=== PATIENT | female | born 1945 | race American Indian/Alaskan Native ===

== ENCOUNTER 2017-02-09 14:32 | Inpatient (IN) | payer MEDICARE, OTHER ==
[2017-02-09 14:33] VITALS: BMI 23.0
[2017-02-09] MEDS ORDERED: Oxycodone/Acetaminophen 5/325 mg Tab PO STA ×2 (15:12→17:01)
[2017-02-09] MEDS ORDERED: Oxycodone/Acetaminophen 5/325 mg Tab ONE ×2 (15:42→16:11)
[2017-02-09 16:09] LABS: BASO # 0.1 K/uL (0.0-0.2); BASO % 0.7 % (0.0-2.0); EOS # 0.1 K/uL (0.0-0.7); EOS % 0.9 % (0.0-4.0); HEMATOCRIT 36.1 % (34.0-47.0); LYMPH # 1.9 K/uL (1.0-4.3); LYMPH % 18.5 % (20.0-40.0); MEAN CORPUSCULAR HEMOGLOBIN 29.5 pg (27.0-31.0); MEAN CORPUSCULAR HGB CONC 32.7 g/dL (33.0-37.0); MEAN PLATELET VOLUME 8.9 fL (7.2-11.7); MONO # 0.9 K/uL (0.0-0.8); MONO % 8.9 % (0.0-10.0); RED CELL DISTRIBUTION WIDTH 16.7 % (11.5-14.5); WHITE BLOOD COUNT 10.5 K/uL (4.8-10.8)
[2017-02-09 16:10] LABS: MEAN CELL VOLUME 90.1 fL (81.0-99.0)
[2017-02-09] MEDS ORDERED: Sodium Chloride 0.9% 1,000 ML ONE (16:11)
[2017-02-09 16:12] LABS: CHLORIDE 97 mmol/L (98-107); SODIUM 141 mmol/L (132-148)
[2017-02-09 16:15] LABS: ALB/GLOB RATIO 1.3 (1.0-2.1); ALKALINE PHOSPHATASE 80 U/L (38-126); ALT/SGPT 20 U/L (9-52); AST/SGOT 24 U/L (14-36); BILIRUBIN,TOTAL 0.3 mg/dL (0.2-1.3); BLOOD UREA NITROGEN 7 mg/dL (7-17); CARBON DIOXIDE 26 mmol/L (22-30); GFR AFRICAN-AMERICAN > 60; GLUCOSE,RANDOM 130 mg/dL (65-105); TOTAL PROTEIN 8.2 g/dL (6.3-8.3)
[2017-02-09] MEDS: Sodium Chloride 0.9% 1,000 ML IV ONE ×2 (16:16→20:41)
--- NOTE | 2017-02-09 16:29 | C.PDOC ---
History Of Present Illness 72-year-old female, PMHx includes Anxiety, Asthma, Bronchitis, COPD, Diabetes, Hypertension, Hypercholesterolemia, and Osteoporosis, presents to the emergency department with complaints of left foot pain x2 weeks. Patient states she has a Hx of peripheral vascular disease, and notes she is pending a femoral bypass surgery by Dr Rankin, and was instructed to come to the ED for evaluation. Denies any trauma. No other complaints at this time. Time Seen by Provider: 02/09/17 14:52 Chief Complaint (Nursing): Lower Extremity Problem/Injury History Per: Patient History/Exam Limitations: no limitations Onset/Duration Of Symptoms: Days Current Symptoms Are (Timing): Still Present Severity: Moderate Past Medical History Reviewed: Historical Data, Nursing Documentation, Vital Signs Vital Signs: Last Vital Signs Temp 98.8 F 02/09/17 17:59 Pulse 86 02/09/17 17:59 Resp 18 02/09/17 17:59 BP 148/62 02/09/17 17:59 Pulse Ox 96 02/09/17 17:59 - Medical History PMH: Anxiety, Arthritis (HANDS), Asthma, Bronchitis, COPD, Diabetes, Fractures ( RT.FOOT/CASTED NO OR), HTN, Hypercholesterolemia, Osteoporosis, Pneumonia Denies: Chronic Kidney Disease Surgical History: Endoscopy - [facility] Procedures CLOSED ENDOSCOPIC BIOPSY OF LARGE INTESTINE (07/31/15) ENDOSCOPIC CONTROL OF GASTRIC OR DUODENAL BLEEDING (07/24/15) ESOPHAGOGASTRODUODENOSCOPY [EGD] W/CLOSED BIOPSY (04/22/13) Family History: States: Unknown Family Hx - Social History Hx Tobacco Use: Yes (Former.) Hx Alcohol Use: No Hx Substance Use: No - Immunization History Hx Tetanus Toxoid Vaccination: No Hx Influenza Vaccination: Yes Hx Pneumococcal Vaccination: No Review Of Systems Except As Marked, All Systems Reviewed And Found Negative. Constitutional: Negative for: Fever, Chills Respiratory: Negative for: Shortness of Breath Gastrointestinal: Negative for: Nausea, Vomiting Musculoskeletal: Positive for: Foot Pain Skin: Negative for: Rash Neurological: Negative for: Weakness, Numbness, Headache, Dizziness Physical Exam - Physical Exam Appears: Non-toxic, No Acute Distress Skin: Warm, Dry, No Rash Head: Atraumatic, Normacephalic Eye(s): bilateral: Normal Inspection, EOMI Nose: Normal Oral Mucosa: Moist Lips: Normal Appearing Neck: Normal ROM Chest: Symmetrical Cardiovascular: Rhythm Regular Respiratory: Normal Breath Sounds, No Accessory Muscle Use Extremity: No Pedal Edema, No Calf Tenderness, Other (LEFT LOWER EXTREMITY. 3RD , 4TH AND 5TH DIGIT, GANGRENOUS AND PAINFUL. ) Neurological/Psych: Oriented x3, Normal Speech ED Course And Treatment - Laboratory Results Result Diagrams: 02/09/17 16:02 02/09/17 16:02 O2 Sat by Pulse Oximetry: 98 Progress Note: Case discussed w/ Dr Ledesma, who agrees w/ admission to his service. Disposition - Disposition Disposition: HOSPITALIZED Disposition Time: 14:00 Condition: STABLE - Clinical Impression Clinical Impression: Peripheral vascular disease, Gangrene of toe - Scribe Statement The provider has reviewed the documentation as recorded by the Pepe Khalil All medical record entries made by the Yareliibjoce were at my direction and personally dictated by me. I have reviewed the chart and agree that the record accurately reflects my personal performance of the history, physical exam, medical decision making, and the department course for this patient. I have also personally directed, reviewed, and agree with the discharge instructions and disposition.
[2017-02-09 17:28] LABS: RBC URINE 1 /hpf (0-3); URINE BILIRUBIN NEGATIVE (NEGATIVE); URINE BLOOD NEGATIVE (NEGATIVE); URINE COLOR Yellow (YELLOW); URINE GLUCOSE (UA) NORMAL (Normal); URINE KETONE NEGATIVE (NEGATIVE); URINE LEUKOCYTE ESTERASE NEG Leu/uL (Negative); URINE PROTEIN 2+ mg/dL (NEGATIVE); URINE UROBILINOGEN NORMAL mg/dL (0.2-1.0); WBC URINE < 1 /hpf (0-5)
--- NOTE | 2017-02-09 21:58 | HP ---
HISTORY OF PRESENT ILLNESS: This is a 72-year-old -[place] female with history of multiple m edical problems including type 2 diabetes mellitus, hypertension, smoker for more than 30 years, pres ented for pain in both lower extremities, right more than left, with change of the colors of the toes of the right foot. The patient was evaluated in the Emergency Room and admitted for further managem ent. The patient has been suffering of intermittent claudication pain for the last few months and sh joce was being given antiplatelet therapy as well as she had a vascular surgery consultation done by Dr. Rankin. REVIEW OF SYSTEMS: Other review of systems is negative. ALLERGIES: SULFA, PENICILLIN, TOMATO. SOCIAL HISTORY: Smoker more than 30 years. No ETOH or substance abuse. FAMILY HISTORY: Noncontributory. PAST MEDICAL HISTORY: Hypertension, type 2 diabetes mellitus, peripheral vascular disease. MEDICATIONS: Simvastatin 20 mg at bedtime, Tradjenta 5 mg daily, glipizide 10 mg twice a day, Plavix 75 mg daily, Pletal 50 mg twice a day, bisoprolol/hydrochlorothiazide 5/6.25 one tablet daily, aspir in 81 mg, amlodipine 5 mg, alprazolam 0.25 mg daily p.r.n., Fosamax 1 tablet every week, metformin 50 0 mg twice a day. PHYSICAL EXAMINATION: GENERAL: The patient is in bed, comfortable, not in any cardiopulmonary distress at the time of this examination. VITAL SIGNS: Blood pressure is 148/62, temperature 98.8, respiratory rate 18, and pulse of 86. HEENT: Pupils equal, reactive to light. Normal-appearing mucosa of the conjunctivae, oropharyngeal and nasal membrane mucosa. NECK: Supple, no JVD, no carotid bruit, no lymph node, no thyromegaly. CHEST AND LUNGS: Bilateral symmetrical expansion, good air exchange, no rales, no rhonchi. CARDIOVASCULAR: PMI not localized. S1, S2. No additional sounds. ABDOMEN: Normoactive bowel sounds, no tenderness, no organomegaly, no masses. EXTREMITIES: There is bluish discoloration of the toes of the right foot with diminished pulses in b oth lower extremities. CENTRAL NERVOUS SYSTEM: Alert, awake, oriented x 3. The patient moves all extremities equally. ASSESSMENT: 1. Peripheral vascular disease with some ischemia of the right foot. 2. Hypertension. 3. Type 2 diabetes mellitus. PLAN: Vascular surgery consultation and follow recommendations. Resume the patient's home medicatio ns, including Accu-Cheks with insulin coverage and antiplatelet. Cortney Lalit Ledesma MD cc: [phone] TT: 02/09/2017 21:57:48 jn
[2017-02-09] MEDS ORDERED: Oxycodone/Acetaminophen 5/325 mg Tab PO PRN (22:48)
[2017-02-09] MEDS ORDERED: (Novolin R) Insulin Human Regular 100 units/ml vial IV ONE (23:05)
--- NOTE | 2017-02-10 01:20 | CP.PCM.CON ---
History of Present Illness - History of Present Illness History of Present Illness: Vascular Surgery Re: LE pain HPI: 72F Presented to ED as directed by Dr Rankin. C/O LLE pain and discoloration of her RLE and B/L LE claudication when ambulating. States she cannot walk very far without severe pain. Worst pain currently is across her R toes. Says this has been happening for ~3 weeks. No other C/O at this time. During an angio on 12/31/16, Dr. Rankin found severe iliac and SFA disease. Patent stents on left. He was unable to re-enter at aortic bifurcation. He recommended letting the angio site heal and return for fem fem bypass. PMH: DM, HTN, PVD PSH: Colectomy, Hysterectomy, breast mass SH: Former smoker quit 3 weeks ago, no EtOH, No drug use All: PCN, Sulfa Meds: See MAR, on ASA and plavix. Review of Systems - Review of Systems All systems: reviewed and no additional remarkable complaints except (as per HPI ) Past Patient History - Infectious Disease Hx of Infectious Diseases: None - Past Medical History & Family History Past Medical History?: Yes - Past Social History Smoking Status: Light Smoker < 10 Cigarettes Daily - CARDIAC Hx Hypercholesterolemia: Yes Hx Hypertension: Yes - PULMONARY Hx Asthma: Yes Hx Bronchitis: Yes Hx Chronic Obstructive Pulmonary Disease (COPD): Yes Hx Pneumonia: Yes - NEUROLOGICAL Hx Neurological Disorder: No - HEENT Hx HEENT Problems: No - RENAL Hx Chronic Kidney Disease: No - ENDOCRINE/METABOLIC Hx Endocrine Disorders: Yes Hx Diabetes Mellitus Type 2: Yes - HEMATOLOGICAL/ONCOLOGICAL Hx Blood Disorders: No - INTEGUMENTARY Hx Dermatological Problems: No - MUSCULOSKELETAL/RHEUMATOLOGICAL Hx Arthritis: Yes (HANDS) Hx Fractures: Yes (RT.FOOT/CASTED NO OR) Hx Osteoporosis: Yes - GASTROINTESTINAL Hx Gastrointestinal Disorders: Yes Hx Bowel Surgery: Yes (COLON RESECTION FOR OBSTRUCTION?) Hx Gastroesophageal Reflux: Yes Other/Comment: HX.OBSTRUCTION HAD BOWEL RESECTION - GENITOURINARY/GYNECOLOGICAL Hx Genitourinary Disorders: No - PSYCHIATRIC Hx Anxiety: Yes Hx Substance Use: No - SURGICAL HISTORY Hx Surgeries: Yes Hx Angiogram: Yes (Stenting left leg) Hx Breast Biopsy: Yes (RT.) Hx Herniorrhaphy: Yes (UMBILICAL) Hx Hysterectomy: Yes (RYANN) Hx Orthopedic Surgery: Yes (OMAR. BUNIONECTOMY) Hx Tubal Ligation: Yes - ANESTHESIA Hx Anesthesia: Yes Hx Anesthesia Reactions: No Hx Malignant Hyperthermia: No Meds Allergies/Adverse Reactions: Allergies Allergy/AdvReac Type Severity Reaction Status Date / Time Penicillins Allergy SWELLING Verified 02/09/17 14:50 Sulfa (Sulfonamide Allergy RASH Verified 02/09/17 14:50 Antibiotics) tomato AdvReac GI UPSET Verified 02/09/17 14:50 - Medications Medications: Current Medications Alprazolam (Xanax) 0.25 mg PO DAILY PRN PRN Reason: Anxiety Stop: 02/16/17 22:49 Amlodipine Besylate (Norvasc) 5 mg PO DAILY [facility] Aspirin (Ecotrin) 81 mg PO DAILY [facility] Bisoprolol Fumarate/HCTZ (Ziac 5-6.25 Mg) 1 tab PO DAILY [facility] Cilostazol (Pletal) 50 mg PO BID [facility] Clopidogrel Bisulfate (Plavix) 75 mg PO DAILY [facility] Glipizide (Glucotrol) 10 mg PO BID [facility] Home Med (Alendronate [Fosamax]) 1 tab PO QWK [facility] Home Med (Linagliptin [Tradjenta]) 5 mg PO DAILY [facility] Sodium Chloride (Sodium Chloride 0.9%) 1,000 mls @ 100 mls/hr IV .Q10H ONE Stop: 02/10/17 01:24 Last Admin: 02/09/17 20:41 Dose: 100 mls/hr Insulin Human Regular (Novolin R) 0 unit IV ONCE ONE PRN Reason: Protocol Stop: 02/09/17 23:06 Metformin HCl (Glucophage) 500 mg PO BID [facility] Oxycodone/Acetaminophen (Percocet 5/325 Mg Tab) 1 tab PO QID PRN PRN Reason: Pain Stop: 02/12/17 22:49 Last Admin: 02/10/17 00:48 Dose: 1 tab Pneumococcal Polyvalent Vaccine (Pneumovax 23 Vaccine) 0.5 ml IM .ONCE ONE Stop: 02/11/17 10:01 Rosuvastatin Calcium (Crestor) 5 mg PO HS [facility] Physical Exam - Constitutional Appears: Non-toxic, No Acute Distress - Head Exam Head Exam: ATRAUMATIC, NORMOCEPHALIC - Eye Exam Eye Exam: EOMI. absent: Scleral icterus - ENT Exam ENT Exam: Mucous Membranes Moist Additional comments: trachea midline - Respiratory Exam Respiratory Exam: NORMAL BREATHING PATTERN. absent: Respiratory Distress - GI/Abdominal Exam GI & Abdominal Exam: Soft. absent: Distended, Guarding, Tenderness Additional comments: old surgical scars - Rectal Exam Rectal Exam: Deferred - Extremities Exam Extremities exam: Positive for: pedal edema (trace on R dorsum). Negative for: calf tenderness Additional comments: palpable femoral b/l, unable to palpate the popliteals, dopplerable PT/DPs with difficulty Some discoloration of dorsum of R foot and 3rd and 4th toes - Back Exam Back exam: absent: CVA tenderness (L), CVA tenderness (R) - Neurological Exam Neurological exam: Alert, Oriented x3 - Psychiatric Exam Psychiatric exam: Normal Affect, Normal Mood - Skin Skin Exam: Dry, Warm Results - Vital Signs Recent Vital Signs: Last Vital Signs Temp 98.2 F 02/09/17 23:57 Pulse 66 02/09/17 23:57 Resp 20 02/09/17 23:57 BP 144/67 02/09/17 23:57 Pulse Ox 95 02/09/17 23:57 - Labs Result Diagrams: 02/09/17 16:02 02/09/17 16:02 Labs: Laboratory Results - last 24 hr 02/09/17 02/09/17 02/09/17 17:15 17:20 22:04 POC Glucose (mg/dL) 137 H Urine Color Yellow Urine Clarity Clear Urine pH 8.0 Ur Specific [place] 1.006 Urine Protein 2+ H Urine Glucose (UA) Normal Urine Ketones Negative Urine Blood Negative Urine Nitrate Negative Urine Bilirubin Negative Urine Urobilinogen Normal Ur Leukocyte Esterase Neg Urine WBC (Auto) < 1 Urine RBC (Auto) 1 Ur Squamous Epith Cells 1 Blood Type O POSITIVE Antibody Screen Negative Assessment & Plan - Assessment and Plan (Free Text) Assessment: 72F with occlusive LE arterial disease Plan: Planning for fem-fem bypass on Thursday per Dr. Rankin Medical Management Adjusted analgesia PGY3
[2017-02-10] MEDS: Bisoprolol-HCTZ 5-6.25 mg Tab PO SCH (10:21)
[2017-02-10] MEDS: Cilostazol 50 mg Tab UD PO SCH ×2 (10:36→17:07)
[2017-02-10] MEDS: Oxycodone/Acetaminophen 5/325 mg Tab PO PRN ×2 (10:38→21:18)
--- NOTE | 2017-02-10 11:44 | CARD ---
APPROVED REPORT EKG Measurement Heart [id number] <Conclusion> Normal sinus rhythm Low voltage QRS Borderline ECG
[2017-02-10] MEDS: (Novolin R) Insulin Human Regular 100 units/ml vial SC SCH ×3 (17:06→21:20)
--- NOTE | 2017-02-10 21:55 | PN ---
DATE: 02/10/2017 The patient is seen today, 02/10/2017. The pain on the left foot is controlled. The patient was see n by vascular surgery, and decision was to do a bypass surgery. Blood pressure is 147/64, temperature 98.2, respiratory rate 20, and pulse 67. HEENT: Pupils equal, reactive to light. Normal-appearing mucosa of the conjunctivae, oropharyngeal, and nasal membrane mucosa. NECK: Supple, no JVD, no carotid bruit, no lymph node, no thyromegaly. CHEST AND LUNGS: Bilateral symmetrical expansion. Good air exchange. No rales, no rhonchi. CARDIOVASCULAR SYSTEM: PMI not localized. S1, S2. No additional sounds. ABDOMEN: Normoactive bowel sounds, no tenderness, no organomegaly, no masses. EXTREMITIES: No cyanosis, no clubbing, no edema. CENTRAL NERVOUS SYSTEM: Alert, awake, oriented x 2. No neurological deficits could be appreciated. ASSESSMENT: Severe peripheral vascular disease of both lower extremities with some ischemic changes in the right foot. PLAN: Continue current medications and management, and after the patient will be cleared by cardiolo gy she will undergo vascular bypass surgery for revascularization of right lower extremity. Kd Ledesma MD cc: [phone] TT: 02/10/2017 21:54:33 Confirmation # [id number] Dictation # [id number]
[2017-02-11] MEDS: Oxycodone/Acetaminophen 5/325 mg Tab PO PRN ×2 (04:58→22:28)
[2017-02-11 07:34] LABS: BASO # 0.1 K/uL (0.0-0.2); BASO % 0.6 % (0.0-2.0); EOS # 0.2 K/uL (0.0-0.7); EOS % 2.4 % (0.0-4.0); HEMATOCRIT 34.4 % (34.0-47.0); LYMPH # 1.7 K/uL (1.0-4.3); LYMPH % 18.6 % (20.0-40.0); MEAN CELL VOLUME 90.2 fL (81.0-99.0); MEAN CORPUSCULAR HEMOGLOBIN 29.7 pg (27.0-31.0); MEAN CORPUSCULAR HGB CONC 32.9 g/dL (33.0-37.0); MEAN PLATELET VOLUME 8.8 fL (7.2-11.7); MONO # 0.8 K/uL (0.0-0.8); NRBC % 0.1 % (0.0-2.0); RED CELL DISTRIBUTION WIDTH 16.4 % (11.5-14.5); WHITE BLOOD COUNT 8.9 K/uL (4.8-10.8)
[2017-02-11 07:56] LABS: CHLORIDE 99 mmol/L (98-107); POTASSIUM 3.7 mmol/L (3.6-5.2); SODIUM 139 mmol/L (132-148)
[2017-02-11 07:57] LABS: BILIRUBIN,TOTAL 0.3 mg/dL (0.2-1.3); CARBON DIOXIDE 24 mmol/L (22-30); GFR AFRICAN-AMERICAN > 60
[2017-02-11 07:58] LABS: ALB/GLOB RATIO 1.2 (1.0-2.1); ALKALINE PHOSPHATASE 74 U/L (38-126); ALT/SGPT 14 U/L (9-52); AST/SGOT 25 U/L (14-36); BLOOD UREA NITROGEN 8 mg/dL (7-17); GLUCOSE,RANDOM 85 mg/dL (65-105); TOTAL PROTEIN 7.5 g/dL (6.3-8.3)
[2017-02-11] MEDS: (Novolin R) Insulin Human Regular 100 units/ml vial SC SCH ×3 (08:25→22:17)
--- NOTE | 2017-02-11 08:34 | CP.PCM.CON ---
History of Present Illness - History of Present Illness History of Present Illness: The pt is a 72 year old woman with PAD. She has severe iliac and SFA disease. Patent stents on left. Attempts at stenting the right femoral artery were unsuccessful. Pt is now for for fem fem bypass. Pt has no known CAD. A pre-op nuclear stress test was normal. Pt has a murmur, and echo confirmed moderate aortic stenosis. Review of Systems - Review of Systems All systems: reviewed and no additional remarkable complaints except ( claudication of right leg.) Past Patient History - Infectious Disease Hx of Infectious Diseases: None - Past Medical History & Family History Past Medical History?: Yes - Past Social History Smoking Status: Light Smoker < 10 Cigarettes Daily - CARDIAC Hx Hypercholesterolemia: Yes Hx Hypertension: Yes - PULMONARY Hx Chronic Obstructive Pulmonary Disease (COPD): Yes - NEUROLOGICAL Hx Neurological Disorder: No - HEENT Hx HEENT Problems: No - RENAL Hx Chronic Kidney Disease: No - ENDOCRINE/METABOLIC Hx Diabetes Mellitus Type 2: Yes - HEMATOLOGICAL/ONCOLOGICAL Hx Blood Disorders: No - INTEGUMENTARY Hx Dermatological Problems: No - MUSCULOSKELETAL/RHEUMATOLOGICAL Hx Arthritis: Yes (HANDS) - GASTROINTESTINAL Hx Gastrointestinal Disorders: Yes Hx Bowel Surgery: Yes (COLON RESECTION FOR OBSTRUCTION?) Hx Gastroesophageal Reflux: Yes Other/Comment: HX.OBSTRUCTION HAD BOWEL RESECTION - GENITOURINARY/GYNECOLOGICAL Hx Genitourinary Disorders: No - PSYCHIATRIC Hx Anxiety: Yes Hx Substance Use: No - SURGICAL HISTORY Hx Surgeries: Yes Hx Angiogram: Yes (Stenting left leg) Hx Breast Biopsy: Yes (RT.) Hx Herniorrhaphy: Yes (UMBILICAL) Hx Hysterectomy: Yes (RYANN) Hx Orthopedic Surgery: Yes (OMAR. BUNIONECTOMY) Hx Tubal Ligation: Yes - ANESTHESIA Hx Anesthesia: Yes Hx Anesthesia Reactions: No Hx Malignant Hyperthermia: No Meds Allergies/Adverse Reactions: Allergies Allergy/AdvReac Type Severity Reaction Status Date / Time Penicillins Allergy SWELLING Verified 02/09/17 14:50 Sulfa (Sulfonamide Allergy RASH Verified 02/09/17 14:50 Antibiotics) tomato AdvReac GI UPSET Verified 02/09/17 14:50 - Medications Medications: Current Medications Alprazolam (Xanax) 0.25 mg PO DAILY PRN PRN Reason: Anxiety Stop: 02/16/17 22:49 Amlodipine Besylate (Norvasc) 5 mg PO DAILY [facility] Last Admin: 02/10/17 10:19 Dose: 5 mg Aspirin (Ecotrin) 81 mg PO DAILY [facility] Last Admin: 02/10/17 10:19 Dose: 81 mg Bisoprolol Fumarate/HCTZ (Ziac 5-6.25 Mg) 1 tab PO DAILY [facility] Last Admin: 02/10/17 10:21 Dose: 1 tab Cilostazol (Pletal) 50 mg PO BID [facility] Last Admin: 02/10/17 17:07 Dose: 50 mg Clopidogrel Bisulfate (Plavix) 75 mg PO DAILY [facility] Last Admin: 02/10/17 10:19 Dose: 75 mg Glipizide (Glucotrol) 10 mg PO BID [facility] Last Admin: 02/10/17 17:06 Dose: 10 mg Insulin Human Regular (Novolin R) 0 unit SC [facility] PRN Reason: Protocol Last Admin: 02/11/17 08:25 Dose: Not Given [facility] Last Admin: 02/11/17 08:25 Dose: Not Given Oxycodone/Acetaminophen (Percocet 5/325 Mg Tab) 1 tab PO Q4H PRN PRN Reason: Pain Stop: 02/12/17 22:49 Last Admin: 02/11/17 04:58 Dose: 1 tab Pneumococcal Polyvalent Vaccine (Pneumovax 23 Vaccine) 0.5 ml IM .ONCE ONE Stop: 02/11/17 10:01 Rosuvastatin Calcium (Crestor) 5 mg PO [facility] Last Admin: 02/10/17 21:19 Dose: 5 mg Physical Exam - Head Exam Head Exam: NORMAL INSPECTION - Eye Exam Eye Exam: EOMI Pupil Exam: NORMAL ACCOMODATION - ENT Exam ENT Exam: Mucous Membranes Moist - Neck Exam Neck exam: Positive for: Normal Inspection - Respiratory Exam Respiratory Exam: Clear to Auscultation Bilateral - Cardiovascular Exam Cardiovascular Exam: Systolic Murmur - GI/Abdominal Exam GI & Abdominal Exam: Normal Bowel Sounds - Rectal Exam Rectal Exam: Deferred - Extremities Exam Extremities exam: Positive for: normal inspection - Back Exam Back exam: NORMAL INSPECTION - Psychiatric Exam Psychiatric exam: Normal Affect, Normal Mood - Skin Skin Exam: Normal Color Results - Vital Signs Recent Vital Signs: Last Vital Signs Temp 97.7 F 02/11/17 07:45 Pulse 74 02/11/17 07:45 Resp 20 02/11/17 07:45 BP 145/58 L 02/11/17 07:45 Pulse Ox 97 02/11/17 07:45 - Labs Result Diagrams: 02/11/17 07:10 02/11/17 07:10 Labs: Laboratory Results - last 24 hr 02/10/17 02/10/17 02/10/17 11:29 16:02 21:17 WBC RBC Hgb Hct MCV MCH MCHC RDW Plt Count MPV Neut % (Auto) Lymph % (Auto) [place] % (Auto) Eos % (Auto) Baso % (Auto) Neut # Lymph # [place] # Eos # Baso # PT INR APTT Sodium Potassium Chloride Carbon Dioxide Anion Gap BUN Creatinine Est GFR ( Amer) Est GFR (Non-Af Amer) POC Glucose (mg/dL) 138 H 177 H 96 Random Glucose Calcium Total Bilirubin AST ALT Alkaline Phosphatase Total Protein Albumin Globulin Albumin/Globulin Ratio Blood Type Antibody Screen 02/11/17 02/11/17 06:53 07:10 WBC 8.9 RBC 3.81 Hgb 11.3 Hct 34.4 MCV 90.2 MCH 29.7 MCHC 32.9 L RDW 16.4 H Plt Count 221 MPV 8.8 Neut % (Auto) 69.4 Lymph % (Auto) 18.6 L [place] % (Auto) 9.0 Eos % (Auto) 2.4 Baso % (Auto) 0.6 Neut # 6.2 Lymph # 1.7 [place] # 0.8 Eos # 0.2 Baso # 0.1 PT 10.9 INR 1.0 APTT 28 Sodium 139 Potassium 3.7 Chloride 99 Carbon Dioxide 24 Anion Gap 20 BUN 8 Creatinine 0.7 Est GFR ( Amer) > 60 Est GFR (Non-Af Amer) > 60 POC Glucose (mg/dL) 90 Random Glucose 85 Calcium 10.0 Total Bilirubin 0.3 AST 25 ALT 14 Alkaline Phosphatase 74 Total Protein 7.5 Albumin 4.1 Globulin 3.4 Albumin/Globulin Ratio 1.2 Blood Type O POSITIVE Antibody Screen Negative - EKG Data EKG Interpreted by: Myself (nsr, LOW VOLTAGE) Assessment & Plan - Assessment and Plan (Free Text) Assessment: 1. Pt has PAD, needs surgery. No myocardial ischemia on pre-op stress test. 2. Moderate aortic stenosis. Pt may be more susceptible to dehydration and pre- load reduction. 3. BP is OK. 4. Pt is medically cleared for vascular surgery.
[2017-02-11] MEDS: Bisoprolol-HCTZ 5-6.25 mg Tab PO SCH (09:10)
[2017-02-11] MEDS: Cilostazol 50 mg Tab UD PO SCH ×2 (09:10→19:49)
[2017-02-11] MEDS ORDERED: Bacitracin 50,000 UNIT in Sodium Chloride 0.9% Irrig 1,000 ML IR SCH (09:45)
[2017-02-11] MEDS ORDERED: HEPARIN-NS 5,000 UNITS/500 ML 500 ML IV ONE ×2 (09:56→15:02)
[2017-02-11] MEDS ORDERED: Vancomycin 1 gm/D5W 200 ml 200 ML IVPB ONE (09:56)
[2017-02-11] MEDS ORDERED: Pneumococcal 23-Valent Vaccine IM ONE (10:00)
[2017-02-11] MEDS ORDERED: Propofol 10 mg/ml Inj (20 ML) ONE (12:15)
[2017-02-11] MEDS ORDERED: Rocuronium 10 mg/ml (5 ml) ONE (12:15)
[2017-02-11] MEDS ORDERED: Midazolam 2 MG/2 ML VIAL ONE (12:15)
[2017-02-11] MEDS ORDERED: Lactated Ringer's 1,000 ML IV ONE ×6 (12:55→18:15)
[2017-02-11] MEDS ORDERED: Thrombin Topical 20,000 Intl Units Spray Kit TOP ONE (15:49)
[2017-02-11] MEDS ORDERED: Bacitracin Ointment 30 GM TUBE ONE (16:10)
--- NOTE | 2017-02-11 16:43 | PCM.SURG1 ---
Surgeon's Initial Post Op Note - Surgeon's Notes Surgeon: Dr. Rankin Manufacturer: Dr. Robertson, Student Doctor Camille Type of Anesthesia: General Endo Pre-Operative Diagnosis: PAD Operative Findings: see operative report Post-Operative Diagnosis: same Operation Performed: Left to Right Fem-Fem Bypass w/ graft Specimen/Specimens Removed: none Estimated Blood Loss: EBL {In ML}: 400 Blood Products Given: N/A Drains Used: No Drains Post-Op Condition: Good Date of Surgery/Procedure: 02/11/17 Time of Surgery/Procedure: 16:43
[2017-02-11] MEDS: HYDROmorphone 0.5 mg/0.5 ml ISec IVP PRN ×3 (16:50→23:50)
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
--- NOTE | 2017-02-11 19:05 | OP ---
PROCEDURE DATE: 02/11/2017 PREOPERATIVE DIAGNOSIS: Gangrene, right fourth toe. POSTOPERATIVE DIAGNOSIS: Gangrene, right fourth toe. PROCEDURE CARRIED OUT: Left to right fem-fem bypass. SURGEON: Terrell Rankin Jr., MD ART OBJECTS SUPERVISOR: Dr. Robertson. ANESTHESIOLOGIST: In the end was Dr. Coley. INDICATIONS: The patient is a 72-year-old diabetic woman with gangrene of the right fourth toe. She had undergone 2 interventional procedures to attempt to treat this endovascularly with successful stenting of the left common and external iliac arteries, but we were unable to reenter on the right side to treat her right leg endovascularly. OPERATIVE FINDINGS: At the completion of the procedure, there was excellent flow through the graft, which was a left to right fem-fem bypass using an 8 mm Hemashield Dacron graft. There is still not any Doppler signals in the foot at the time we had finished the procedure, but the graft was patent with good flow beyond it. PROCEDURE: The patient was given general anesthesia, intravenous antibiotics. A standard scrub was carried out and placement of a _Vi drape. The superficial and profunda femoris arteries were identified on both sides. Heparin was given. A subcutaneous tunnel was created. The recipient anastomosis on the right side was carried out first to the common femoral artery, then brought through the graft above the pubic bone and anastomosed in an end-to-side fashion to the left common femoral artery. There was good flow through this. Blood loss for the procedure was approximately 400 mL, mostly due to flushing maneuvers. The wounds were closed when they were dry. There were no operative complications or problems. OPERATION CARRIED OUT: Left to right fem-fem bypass using an 8 mm Dacron graft. Terrell Rankin Jr., MD cc: 56 TT: 02/11/2017 19:05:25 katrin NEVAREZ
[2017-02-11] MEDS: Lactated Ringer's 1,000 ML IV SCH (19:49)
[2017-02-12] MEDS: HYDROmorphone 0.5 mg/0.5 ml ISec IVP PRN ×4 (03:47→23:08)
[2017-02-12] MEDS: Lactated Ringer's 1,000 ML IV SCH ×3 (04:00→18:27)
[2017-02-12 06:49] LABS: BASO % 0.3 % (0.0-2.0); EOS # 0.1 K/uL (0.0-0.7); EOS % 0.5 % (0.0-4.0); HEMATOCRIT 27.1 % (34.0-47.0); LYMPH # 1.1 K/uL (1.0-4.3); MEAN CORPUSCULAR HEMOGLOBIN 29.2 pg (27.0-31.0); MEAN CORPUSCULAR HGB CONC 32.1 g/dL (33.0-37.0); MEAN PLATELET VOLUME 8.9 fL (7.2-11.7); MONO # 1.1 K/uL (0.0-0.8); MONO % 7.8 % (0.0-10.0); NRBC % 0.1 % (0.0-2.0); PLATELET COUNT 162 K/uL (130-400); RED CELL DISTRIBUTION WIDTH 16.7 % (11.5-14.5); WHITE BLOOD COUNT 14.3 K/uL (4.8-10.8)
[2017-02-12 07:00] LABS: CHLORIDE 103 mmol/L (98-107); SODIUM 138 mmol/L (132-148)
[2017-02-12 07:02] LABS: ALB/GLOB RATIO 1.1 (1.0-2.1); ALKALINE PHOSPHATASE 57 U/L (38-126); AST/SGOT 29 U/L (14-36); BILIRUBIN,TOTAL 0.3 mg/dL (0.2-1.3); CARBON DIOXIDE 23 mmol/L (22-30); GFR AFRICAN-AMERICAN > 60; TOTAL PROTEIN 6.4 g/dL (6.3-8.3)
[2017-02-12 07:03] LABS: ALT/SGPT 21 U/L (9-52); BLOOD UREA NITROGEN 11 mg/dL (7-17); GLUCOSE,RANDOM 120 mg/dL (65-105); MAGNESIUM 1.2 mg/dL (1.6-2.3); PHOSPHOROUS 4.2 mg/dL (2.5-4.5)
--- NOTE | 2017-02-12 08:08 | CP.CCUPN ---
Addendum entered and electronically signed by Shavon Zurita DO 02/12/17 11:20 : Patient transferred to MED/SURG Original Note: <Shavon Zurita - Last Filed: 02/12/17 11:15> CCU Subjective - Physician Review Subjective (Free Text): Patient was seen and examined at bedside. S/P fem-fem bypass POD #1. Patient reported not eating dinner last night due to drowsiness. She still has some pain but states her pain is well controlled on the pain medications. Patient was instructed by Dr. Rankin to not ambulate yet today. Otherwise, no acute events overnight as per nursing. Denied fever, chills, chest pain, SOB, or urinary symptoms. CCU Objective - Vital Signs / Intake & Output Vital Signs (Last 4 hours): Vital Signs Pulse Resp BP Pulse Ox 02/12/17 05:47 109 H 25 H 110/48 L 98 02/12/17 04:47 120/46 L 02/12/17 04:28 100 H 27 H 97 Intake and Output (Last 8hrs): Intake & Output 02/11/17 02/12/17 02/12/17 22:59 06:59 14:59 Intake Total 350 850 100 Output Total 445 295 30 Balance -95 555 70 Intake: Intake, IV Amount 300 800 100 Left 0 Right Forearm 300 800 100 Oral 50 50 Output: Urine 445 295 30 Urine, Voided 145 295 30 - Physical Exam Head: Positive for: Atraumatic, Normocephalic Pupils: Positive for: PERRL Extroacular Muscles: Positive for: EOMI Conjunctiva: Positive for: Normal Mouth: Positive for: Moist Mucous Membranes Respiratory/Chest: Positive for: Clear to Auscultation, Good Air Exchange. Negative for: Respiratory Distress, Accessory Muscle Use, Wheezes Cardiovascular: Positive for: Regular Rate and Rhythm, Normal S1, S2 Abdomen: Positive for: Tenderness, Normal Bowel Sounds, Other (femoral pulse palpated on lower abdomen ). Negative for: Distention Genitourinary/Pelvic Exam: Positive for: Other (dressings are clean, dry, intact ) Upper Extremity: Positive for: Normal Inspection. Negative for: Edema Lower Extremity: Positive for: Normal Inspection. Negative for: Edema Neurological: Positive for: GCS=15, CN II-XII Intact Skin: Positive for: Warm, Dry, Normal Color Psychiatric: Positive for: Alert, Oriented x 3 - Medications Active Medications: Active Medications Generic Name Dose Route Start Last Admin Trade Name Freq PRN Reason Stop Dose Admin Alprazolam 0.25 mg 02/09/17 22:48 Xanax PO 02/16/17 22:49 DAILY PRN Anxiety Amlodipine Besylate 5 mg 02/10/17 10:00 02/11/17 09:10 Norvasc PO Not Given DAILY [facility] Aspirin 81 mg 02/10/17 10:00 02/10/17 10:19 Ecotrin PO 81 mg DAILY [facility] Administration Bisoprolol Fumarate/HCTZ 1 tab 02/10/17 10:00 02/11/17 09:10 Ziac 5-6.25 Mg PO Not Given DAILY [facility] Cilostazol 50 mg 02/10/17 10:00 02/11/17 19:49 Pletal PO Not Given BID [facility] Clopidogrel Bisulfate 75 mg 02/10/17 10:00 02/10/17 10:19 Plavix PO 75 mg DAILY [facility] Administration Glipizide 10 mg 02/10/17 07:30 02/11/17 18:53 Glucotrol PO Not Given BID [facility] Hydromorphone HCl 0.5 mg 02/11/17 16:36 02/12/17 07:38 Dilaudid IVP 0.5 mg Q3H PRN Administration Pain, severe (8-10) Lactated Ringer's 1,000 mls @ 100 mls/hr 02/11/17 17:00 02/12/17 04:00 Lactated Ringer's IV 100 mls/hr .Q10H [facility] Administration Magnesium Sulfate/Dextrose 100 mls @ 200 mls/hr 02/12/17 08:00 Magnesium Sulfate 1 Gm/100 Ml D5w IVPB 02/12/17 08:59 Q30M [facility] Insulin Human Regular 0 unit 02/10/17 16:30 02/11/17 22:17 Novolin R SC Not Given ACHS [facility] Protocol Metformin HCl 500 mg 02/10/17 16:30 02/11/17 18:53 Glucophage PO Not Given BIDBS [facility] Oxycodone/Acetaminophen 1 tab 02/10/17 07:21 02/11/17 22:28 Percocet 5/325 Mg Tab PO 02/12/17 22:49 1 tab Q4H PRN Administration Pain Pantoprazole Sodium 40 mg 04/13/17 10:00 Protonix Inj IVP DAILY [facility] Rosuvastatin Calcium 5 mg 02/10/17 22:00 02/11/17 22:30 Crestor PO 5 mg HS [facility] Administration - Patient Studies Lab Studies: Lab Studies 02/12/17 02/12/17 02/11/17 Range/Units 07:22 06:41 22:05 WBC 14.3 H D (4.8-10.8) K/uL RBC 2.98 L (3.80-5.20) Mil/uL Hgb 8.7 L D (11.0-16.0) g/dL Hct 27.1 L (34.0-47.0) % MCV 91.0 (81.0-99.0) fL MCH 29.2 (27.0-31.0) pg MCHC 32.1 L (33.0-37.0) g/dL RDW 16.7 H (11.5-14.5) % Plt Count 162 (130-400) K/uL MPV 8.9 (7.2-11.7) fL Neut % (Auto) 83.4 H (50.0-75.0) % Lymph % (Auto) 8.0 L (20.0-40.0) % [place] % (Auto) 7.8 (0.0-10.0) % Eos % (Auto) 0.5 (0.0-4.0) % Baso % (Auto) 0.3 (0.0-2.0) % Neut # 11.9 H (1.8-7.0) K/uL Lymph # 1.1 (1.0-4.3) K/uL [place] # 1.1 H (0.0-0.8) K/uL Eos # 0.1 (0.0-0.7) K/uL Baso # 0.0 (0.0-0.2) K/uL Sodium 138 (132-148) mmol/L Potassium 4.0 (3.6-5.2) mmol/L Chloride 103 (98-107) mmol/L Carbon Dioxide 23 (22-30) mmol/L Anion Gap 16 (10-20) BUN 11 (7-17) mg/dL Creatinine 0.9 (0.7-1.2) MG/DL Est GFR ( Amer) > 60 Est GFR (Non-Af Amer) > 60 POC Glucose (mg/dL) 160 H 126 H (65-110) mg/dL Random Glucose 120 H (65-105) mg/dL Calcium 9.0 (8.6-10.4) mg/dl Phosphorus 4.2 (2.5-4.5) mg/dL Magnesium 1.2 L (1.6-2.3) mg/dL Total Bilirubin 0.3 (0.2-1.3) mg/dL AST 29 (14-36) U/L ALT 21 (9-52) U/L Alkaline Phosphatase 57 (38-126) U/L Total Protein 6.4 (6.3-8.3) g/dL Albumin 3.3 L (3.5-5.0) g/dL Globulin 3.1 (2.2-3.9) gm/dL Albumin/Globulin Ratio 1.1 (1.0-2.1) 02/11/17 Range/Units 16:59 WBC (4.8-10.8) K/uL RBC (3.80-5.20) Mil/uL Hgb (11.0-16.0) g/dL Hct (34.0-47.0) % MCV (81.0-99.0) fL MCH (27.0-31.0) pg MCHC (33.0-37.0) g/dL RDW (11.5-14.5) % Plt Count (130-400) K/uL MPV (7.2-11.7) fL Neut % (Auto) (50.0-75.0) % Lymph % (Auto) (20.0-40.0) % [place] % (Auto) (0.0-10.0) % Eos % (Auto) (0.0-4.0) % Baso % (Auto) (0.0-2.0) % Neut # (1.8-7.0) K/uL Lymph # (1.0-4.3) K/uL [place] # (0.0-0.8) K/uL Eos # (0.0-0.7) K/uL Baso # (0.0-0.2) K/uL Sodium (132-148) mmol/L Potassium (3.6-5.2) mmol/L Chloride (98-107) mmol/L Carbon Dioxide (22-30) mmol/L Anion Gap (10-20) BUN (7-17) mg/dL Creatinine (0.7-1.2) MG/DL Est GFR ( Amer) Est GFR (Non-Af Amer) POC Glucose (mg/dL) 141 H (65-110) mg/dL Random Glucose (65-105) mg/dL Calcium (8.6-10.4) mg/dl Phosphorus (2.5-4.5) mg/dL Magnesium (1.6-2.3) mg/dL Total Bilirubin (0.2-1.3) mg/dL AST (14-36) U/L ALT (9-52) U/L Alkaline Phosphatase (38-126) U/L Total Protein (6.3-8.3) g/dL Albumin (3.5-5.0) g/dL Globulin (2.2-3.9) gm/dL Albumin/Globulin Ratio (1.0-2.1) Laboratory Results - last 24 hr 02/11/17 02/11/17 02/12/17 16:59 22:05 06:41 WBC 14.3 H D RBC 2.98 L Hgb 8.7 L D Hct 27.1 L MCV 91.0 MCH 29.2 MCHC 32.1 L RDW 16.7 H Plt Count 162 MPV 8.9 Neut % (Auto) 83.4 H Lymph % (Auto) 8.0 L [place] % (Auto) 7.8 Eos % (Auto) 0.5 Baso % (Auto) 0.3 Neut # 11.9 H Lymph # 1.1 [place] # 1.1 H Eos # 0.1 Baso # 0.0 Sodium 138 Potassium 4.0 Chloride 103 Carbon Dioxide 23 Anion Gap 16 BUN 11 Creatinine 0.9 Est GFR ( Amer) > 60 Est GFR (Non-Af Amer) > 60 POC Glucose (mg/dL) 141 H 126 H Random Glucose 120 H Calcium 9.0 Phosphorus 4.2 Magnesium 1.2 L Total Bilirubin 0.3 AST 29 ALT 21 Alkaline Phosphatase 57 Total Protein 6.4 Albumin 3.3 L Globulin 3.1 Albumin/Globulin Ratio 1.1 02/12/17 07:22 WBC RBC Hgb Hct MCV MCH MCHC RDW Plt Count MPV Neut % (Auto) Lymph % (Auto) [place] % (Auto) Eos % (Auto) Baso % (Auto) Neut # Lymph # [place] # Eos # Baso # Sodium Potassium Chloride Carbon Dioxide Anion Gap BUN Creatinine Est GFR ( Amer) Est GFR (Non-Af Amer) POC Glucose (mg/dL) 160 H Random Glucose Calcium Phosphorus Magnesium Total Bilirubin AST ALT Alkaline Phosphatase Total Protein Albumin Globulin Albumin/Globulin Ratio Fingerstick Blood Sugar Results: 106 Critical Care Progress Note - Nutrition Nutrition: Nutrition Category Date Time Status Heart Healthy Diet [DIET] Diets 02/11/17 Dinner Active Assessment/Plan - Assessment and Plan (Free Text) Assessment: 72F with PMHx of DM, HTN, PVD, 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 Plan: Neuro: Awake, alert, oriented CV: HTN: Resume home medications: Norvasc 5 mg PO daily, Bisoprolol/ HCTZ 1 tab PO daily Severe iliac and superficial femoral artery disease s/p Fem-Fem Bypass: Management as per surgery, Dilaudid 0.5g IVP Q3H PRN, Oxycodone 1 tab PO Q4H PRN , LR @ 100 cc/hr PVD: Resume home medications: ASA, Pletal 50mg PO BID, Crestor 5mg PO QHS, Plavix 75mg PO daily Low Magnesium: Repleted Endo: DM Accuchecks ISS- medium Glipizide 10mg PO BID, Metformin 500mg PO BIDBS Heme: Hemoglobin 11.8 on admission currently 8.7 - 2 units of PRBCs on hold Monitor GI: Heart Healthy Diet GI PPX: Protonix 40mg IVP daily ID: Monitor WBC- today 14.3 Vancomycin 1gram Q12 day 1/3 Prophylaxis DVT PPX: Restarted Plavix, ASA SCDs contraindicated due to PVD DW Parminder Ortega DO, PGY-1 <Donny Singh - Last Filed: 02/12/17 12:29> CCU Objective - Vital Signs / Intake & Output Intake and Output (Last 8hrs): Intake & Output 02/11/17 02/12/17 02/12/17 22:59 06:59 14:59 Intake Total 350 850 200 Output Total 445 295 32 Balance -95 555 168 Intake: Intake, IV Amount 300 800 200 Left 0 Right Forearm 300 800 200 Oral 50 50 Output: Urine 445 295 32 Urine, Voided 145 295 32 - Medications Active Medications: Active Medications Generic Name Dose Route Start Last Admin Trade Name Freq PRN Reason Stop Dose Admin Alprazolam 0.25 mg 02/09/17 22:48 Xanax PO 02/16/17 22:49 DAILY PRN Anxiety Amlodipine Besylate 5 mg 02/10/17 10:00 02/12/17 09:34 Norvasc PO 5 mg DAILY [facility] Administration Aspirin 81 mg 02/10/17 10:00 02/12/17 09:34 Ecotrin PO 81 mg DAILY [facility] Administration Bisoprolol Fumarate/HCTZ 1 tab 02/10/17 10:00 02/12/17 09:34 Ziac 5-6.25 Mg PO 1 tab DAILY [facility] Administration Cilostazol 50 mg 02/10/17 10:00 02/12/17 09:35 Pletal PO 50 mg BID [facility] Administration Clopidogrel Bisulfate 75 mg 02/10/17 10:00 02/12/17 09:34 Plavix PO 75 mg DAILY [facility] Administration Glipizide 10 mg 02/10/17 07:30 02/12/17 09:34 Glucotrol PO 10 mg BID [facility] Administration Hydromorphone HCl 0.5 mg 02/11/17 16:36 02/12/17 07:38 Dilaudid IVP 0.5 mg Q3H PRN Administration Pain, severe (8-10) Lactated Ringer's 1,000 mls @ 100 mls/hr 02/11/17 17:00 02/12/17 04:00 Lactated Ringer's IV 100 mls/hr .Q10H [facility] Administration Vancomycin/Sodium Chloride 200 mls @ 133.333 mls/hr 02/12/17 11:00 Vancocin IVPB 02/14/17 11:01 Q12H [facility] Insulin Human Regular 0 unit 02/10/17 16:30 02/11/17 22:17 Novolin R SC Not Given ACHS [facility] Protocol Metformin HCl 500 mg 02/10/17 16:30 02/12/17 07:45 Glucophage PO 500 mg BIDBS [facility] Administration Oxycodone/Acetaminophen 1 tab 02/10/17 07:21 02/12/17 09:40 Percocet 5/325 Mg Tab PO 02/12/17 22:49 1 tab Q4H PRN Administration Pain Pantoprazole Sodium 40 mg 02/12/17 10:00 02/12/17 09:34 Protonix Inj IVP 40 mg DAILY [facility] Administration Rosuvastatin Calcium 5 mg 02/10/17 22:00 02/11/17 22:30 Crestor PO 5 mg HS [facility] Administration - Patient Studies Lab Studies: Lab Studies 02/12/17 02/12/17 02/12/17 Range/Units 11:30 07:22 06:41 WBC 14.3 H D (4.8-10.8) K/uL RBC 2.98 L (3.80-5.20) Mil/uL Hgb 8.7 L D (11.0-16.0) g/dL Hct 27.1 L (34.0-47.0) % MCV 91.0 (81.0-99.0) fL MCH 29.2 (27.0-31.0) pg MCHC 32.1 L (33.0-37.0) g/dL RDW 16.7 H (11.5-14.5) % Plt Count 162 (130-400) K/uL MPV 8.9 (7.2-11.7) fL Neut % (Auto) 83.4 H (50.0-75.0) % Lymph % (Auto) 8.0 L (20.0-40.0) % [place] % (Auto) 7.8 (0.0-10.0) % Eos % (Auto) 0.5 (0.0-4.0) % Baso % (Auto) 0.3 (0.0-2.0) % Neut # 11.9 H (1.8-7.0) K/uL Lymph # 1.1 (1.0-4.3) K/uL [place] # 1.1 H (0.0-0.8) K/uL Eos # 0.1 (0.0-0.7) K/uL Baso # 0.0 (0.0-0.2) K/uL Neutrophils % (Manual) 81 H (50-75) % Band Neutrophils % 2 (0-2) % Lymphocytes % (Manual) 10 L (20-40) % Monocytes % (Manual) 7 (0-10) % Platelet Estimate Normal (NORMAL) Anisocytosis (manual) Slight Target Cells Slight Sodium 138 (132-148) mmol/L Potassium 4.0 (3.6-5.2) mmol/L Chloride 103 (98-107) mmol/L Carbon Dioxide 23 (22-30) mmol/L Anion Gap 16 (10-20) BUN 11 (7-17) mg/dL Creatinine 0.9 (0.7-1.2) MG/DL Est GFR ( Amer) > 60 Est GFR (Non-Af Amer) > 60 POC Glucose (mg/dL) 234 H 160 H (65-110) mg/dL Random Glucose 120 H (65-105) mg/dL Calcium 9.0 (8.6-10.4) mg/dl Phosphorus 4.2 (2.5-4.5) mg/dL Magnesium 1.2 L (1.6-2.3) mg/dL Total Bilirubin 0.3 (0.2-1.3) mg/dL AST 29 (14-36) U/L ALT 21 (9-52) U/L Alkaline Phosphatase 57 (38-126) U/L Total Protein 6.4 (6.3-8.3) g/dL Albumin 3.3 L (3.5-5.0) g/dL Globulin 3.1 (2.2-3.9) gm/dL Albumin/Globulin Ratio 1.1 (1.0-2.1) 02/11/17 02/11/17 Range/Units 22:05 16:59 WBC (4.8-10.8) K/uL RBC (3.80-5.20) Mil/uL Hgb (11.0-16.0) g/dL Hct (34.0-47.0) % MCV (81.0-99.0) fL MCH (27.0-31.0) pg MCHC (33.0-37.0) g/dL RDW (11.5-14.5) % Plt Count (130-400) K/uL MPV (7.2-11.7) fL Neut % (Auto) (50.0-75.0) % Lymph % (Auto) (20.0-40.0) % [place] % (Auto) (0.0-10.0) % Eos % (Auto) (0.0-4.0) % Baso % (Auto) (0.0-2.0) % Neut # (1.8-7.0) K/uL Lymph # (1.0-4.3) K/uL [place] # (0.0-0.8) K/uL Eos # (0.0-0.7) K/uL Baso # (0.0-0.2) K/uL Neutrophils % (Manual) (50-75) % Band Neutrophils % (0-2) % Lymphocytes % (Manual) (20-40) % Monocytes % (Manual) (0-10) % Platelet Estimate (NORMAL) Anisocytosis (manual) Target Cells Sodium (132-148) mmol/L Potassium (3.6-5.2) mmol/L Chloride (98-107) mmol/L Carbon Dioxide (22-30) mmol/L Anion Gap (10-20) BUN (7-17) mg/dL Creatinine (0.7-1.2) MG/DL Est GFR ( Amer) Est GFR (Non-Af Amer) POC Glucose (mg/dL) 126 H 141 H (65-110) mg/dL Random Glucose (65-105) mg/dL Calcium (8.6-10.4) mg/dl Phosphorus (2.5-4.5) mg/dL Magnesium (1.6-2.3) mg/dL Total Bilirubin (0.2-1.3) mg/dL AST (14-36) U/L ALT (9-52) U/L Alkaline Phosphatase (38-126) U/L Total Protein (6.3-8.3) g/dL Albumin (3.5-5.0) g/dL Globulin (2.2-3.9) gm/dL Albumin/Globulin Ratio (1.0-2.1) Laboratory Results - last 24 hr 02/11/17 02/11/17 02/12/17 16:59 22:05 06:41 WBC 14.3 H D RBC 2.98 L Hgb 8.7 L D Hct 27.1 L MCV 91.0 MCH 29.2 MCHC 32.1 L RDW 16.7 H Plt Count 162 MPV 8.9 Neut % (Auto) 83.4 H Lymph % (Auto) 8.0 L [place] % (Auto) 7.8 Eos % (Auto) 0.5 Baso % (Auto) 0.3 Neut # 11.9 H Lymph # 1.1 [place] # 1.1 H Eos # 0.1 Baso # 0.0 Neutrophils % (Manual) 81 H Band Neutrophils % 2 Lymphocytes % (Manual) 10 L Monocytes % (Manual) 7 Platelet Estimate Normal Anisocytosis (manual) Slight Target Cells Slight Sodium 138 Potassium 4.0 Chloride 103 Carbon Dioxide 23 Anion Gap 16 BUN 11 Creatinine 0.9 Est GFR ( Amer) > 60 Est GFR (Non-Af Amer) > 60 POC Glucose (mg/dL) 141 H 126 H Random Glucose 120 H Calcium 9.0 Phosphorus 4.2 Magnesium 1.2 L Total Bilirubin 0.3 AST 29 ALT 21 Alkaline Phosphatase 57 Total Protein 6.4 Albumin 3.3 L Globulin 3.1 Albumin/Globulin Ratio 1.1 02/12/17 02/12/17 07:22 11:30 WBC RBC Hgb Hct MCV MCH MCHC RDW Plt Count MPV Neut % (Auto) Lymph % (Auto) [place] % (Auto) Eos % (Auto) Baso % (Auto) Neut # Lymph # [place] # Eos # Baso # Neutrophils % (Manual) Band Neutrophils % Lymphocytes % (Manual) Monocytes % (Manual) Platelet Estimate Anisocytosis (manual) Target Cells Sodium Potassium Chloride Carbon Dioxide Anion Gap BUN Creatinine Est GFR ( Amer) Est GFR (Non-Af Amer) POC Glucose (mg/dL) 160 H 234 H Random Glucose Calcium Phosphorus Magnesium Total Bilirubin AST ALT Alkaline Phosphatase Total Protein Albumin Globulin Albumin/Globulin Ratio Critical Care Progress Note - Nutrition Nutrition: Nutrition Category Date Time Status Heart Healthy Diet [DIET] Diets 02/11/17 Dinner Active Attending/Attestation - Attestation I have personally seen and examined this patient.: Yes I have fully participated in the care of the patient.: Yes I have reviewed all pertinent clinical information: Yes Notes (Text): 02/12/17 12:11 I have seen and examined the patient. Medical records, lab studies, and imaging were reviewed by me and a management plan was formulated on multidisciplinary rounds with resident Dr. Zurita. I agree with their above documented assessment and plan. Patient doing well clinically post-op. H/H had a mild drop, most likely post- operative anemia, asymptomatic anemia. If patient remains stable for the rest of the day, then can downgrade to the floors with discussion with Surgery team. Critical Care Time 35 minutes. Multi-disciplinary rounds were performed with house staff, nursing, speech therapy, respiratory therapy, pharmacy and nutrition with integrated input from the primary team/attending and other consulting services. The documented time is cumulative and includes review of patient data/exams/labs/chart review and examination of the patient on rounds and throughout the day; time is exclusive of any procedures or teaching time. 02/12/17 12:28
--- NOTE | 2017-02-12 08:08 | CP.PCM.PN ---
Subjective - Date & Time of Evaluation Date of Evaluation: 02/12/17 Time of Evaluation: 08:06 - Subjective Subjective: dw pulse present by doppler foot warm dc nogueira dc iv Hct decreased no tx planned Objective - Vital Signs/Intake and Output Vital Signs (last 24 hours): Temp Pulse Resp BP Pulse Ox 97.6 F 109 H 25 H 110/48 L 98 02/12/17 04:00 02/12/17 05:47 02/12/17 05:47 02/12/17 05:47 02/12/17 05:47 Intake and Output: 02/12/17 02/12/17 06:59 18:59 Intake Total 1200 100 Output Total 440 30 Balance 760 70 - Medications Medications: Current Medications Alprazolam (Xanax) 0.25 mg PO DAILY PRN PRN Reason: Anxiety Stop: 02/16/17 22:49 Amlodipine Besylate (Norvasc) 5 mg PO DAILY [facility] Last Admin: 02/11/17 09:10 Dose: Not Given Aspirin (Ecotrin) 81 mg PO DAILY [facility] Last Admin: 02/10/17 10:19 Dose: 81 mg Bisoprolol Fumarate/HCTZ (Ziac 5-6.25 Mg) 1 tab PO DAILY [facility] Last Admin: 02/11/17 09:10 Dose: Not Given Cilostazol (Pletal) 50 mg PO BID [facility] Last Admin: 02/11/17 19:49 Dose: Not Given Clopidogrel Bisulfate (Plavix) 75 mg PO DAILY [facility] Last Admin: 02/10/17 10:19 Dose: 75 mg Glipizide (Glucotrol) 10 mg PO BID [facility] Last Admin: 02/11/17 18:53 Dose: Not Given Hydromorphone HCl (Dilaudid) 0.5 mg IVP Q3H PRN PRN Reason: Pain, severe (8-10) Last Admin: 02/12/17 07:38 Dose: 0.5 mg Lactated Ringer's (Lactated Ringer's) 1,000 mls @ 100 mls/hr IV .Q10H [facility] Last Admin: 02/12/17 04:00 Dose: 100 mls/hr Magnesium Sulfate/Dextrose (Magnesium Sulfate 1 Gm/100 Ml D5w) 100 mls @ 200 mls/hr IVPB Q30M [facility] Stop: 02/12/17 08:59 Insulin Human Regular (Novolin R) 0 unit SC ACHS [facility] PRN Reason: Protocol Last Admin: 02/11/17 22:17 Dose: Not Given Metformin HCl (Glucophage) 500 mg PO BIDBS [facility] Last Admin: 02/11/17 18:53 Dose: Not Given Oxycodone/Acetaminophen (Percocet 5/325 Mg Tab) 1 tab PO Q4H PRN PRN Reason: Pain Stop: 02/12/17 22:49 Last Admin: 02/11/17 22:28 Dose: 1 tab Pantoprazole Sodium (Protonix Inj) 40 mg IVP DAILY [facility] Rosuvastatin Calcium (Crestor) 5 mg PO HS [facility] Last Admin: 02/11/17 22:30 Dose: 5 mg - Labs Labs: 02/12/17 06:41 02/12/17 06:41 PT 10.9 SECONDS (9.7-12.2) 02/11/17 07:10 INR 1.0 02/11/17 07:10 APTT 28 SECONDS (21-34) 02/11/17 07:10
[2017-02-12 08:09] LABS: NEUTROPHIL 81 % (50-75); TOTAL CELLS COUNTED 100
[2017-02-12] MEDS: Bisoprolol-HCTZ 5-6.25 mg Tab PO SCH (09:34)
[2017-02-12] MEDS: Cilostazol 50 mg Tab UD PO SCH ×2 (09:35→18:28)
[2017-02-12] MEDS: Oxycodone/Acetaminophen 5/325 mg Tab PO PRN ×2 (09:40→18:28)
[2017-02-12] MEDS: Vancomycin 1 gm/NS 200 ml 200 ML IVPB SCH (11:45)
[2017-02-12] MEDS: (Novolin R) Insulin Human Regular 100 units/ml vial SC SCH ×2 (17:54→21:40)
[2017-02-13] MEDS: Vancomycin 1 gm/NS 200 ml 200 ML IVPB SCH ×3 (00:32→22:36)
[2017-02-13] MEDS: Lactated Ringer's 1,000 ML IV SCH (05:53)
--- NOTE | 2017-02-13 07:51 | CP.PCM.PN ---
Subjective - Date & Time of Evaluation Date of Evaluation: 02/13/17 Time of Evaluation: 07:48 - Subjective Subjective: Surgery: Dr. Rankin Patient with some pain at graft site, mild. Patient still with pain in her feet bilaterally but overall improved from since surgery. She has not been OOB yet. She is tolerating diet. Per nursing no acute events overnight. Objective - Vital Signs/Intake and Output Vital Signs (last 24 hours): Temp Pulse Resp BP Pulse Ox 99 F 100 H 18 154/55 H 95 02/13/17 04:00 02/13/17 04:00 02/13/17 04:00 02/13/17 04:00 02/13/17 04:00 Intake and Output: 02/13/17 02/13/17 06:59 18:59 Intake Total 1350 Output Total 1000 Balance 350 - Medications Medications: Current Medications Alprazolam (Xanax) 0.25 mg PO DAILY PRN PRN Reason: Anxiety Stop: 02/16/17 22:49 Amlodipine Besylate (Norvasc) 5 mg PO DAILY [facility] Last Admin: 02/12/17 09:34 Dose: 5 mg Aspirin (Ecotrin) 81 mg PO DAILY [facility] Last Admin: 02/12/17 09:34 Dose: 81 mg Bisoprolol Fumarate/HCTZ (Ziac 5-6.25 Mg) 1 tab PO DAILY [facility] Last Admin: 02/12/17 09:34 Dose: 1 tab Cilostazol (Pletal) 50 mg PO BID [facility] Last Admin: 02/12/17 18:28 Dose: 50 mg Clopidogrel Bisulfate (Plavix) 75 mg PO DAILY [facility] Last Admin: 02/12/17 09:34 Dose: 75 mg Glipizide (Glucotrol) 10 mg PO BID [facility] Last Admin: 02/12/17 18:27 Dose: 10 mg Hydromorphone HCl (Dilaudid) 0.5 mg IVP Q3H PRN PRN Reason: Pain, severe (8-10) Last Admin: 02/12/17 23:08 Dose: 0.5 mg Vancomycin/Sodium Chloride (Vancocin) 200 mls @ 133.333 mls/hr IVPB Q12H [facility] Stop: 02/14/17 11:01 Last Admin: 02/13/17 00:32 Dose: 133.333 mls/hr Insulin Human Regular (Novolin R) 0 unit SC ACHS [facility] PRN Reason: Protocol Last Admin: 02/12/17 21:40 Dose: Not Given Metformin HCl (Glucophage) 500 mg PO BIDBS [facility] Last Admin: 02/12/17 17:54 Dose: Not Given Pantoprazole Sodium (Protonix Inj) 40 mg IVP DAILY [facility] Last Admin: 02/12/17 09:34 Dose: 40 mg Rosuvastatin Calcium (Crestor) 5 mg PO HS [facility] Last Admin: 02/12/17 21:37 Dose: 5 mg - Labs Labs: 02/12/17 06:41 02/12/17 06:41 PT 10.9 SECONDS (9.7-12.2) 02/11/17 07:10 INR 1.0 02/11/17 07:10 APTT 28 SECONDS (21-34) 02/11/17 07:10 - Constitutional Appears: Non-toxic, No Acute Distress - Head Exam Head Exam: ATRAUMATIC, NORMOCEPHALIC - Eye Exam Eye Exam: EOMI, Normal appearance - ENT Exam ENT Exam: Mucous Membranes Moist - Respiratory Exam Respiratory Exam: NORMAL BREATHING PATTERN. absent: Respiratory Distress - Cardiovascular Exam Cardiovascular Exam: REGULAR RHYTHM. absent: Tachycardia - GI/Abdominal Exam GI & Abdominal Exam: Soft. absent: Distended, Tenderness Additional comments: suprapubic pulse from graft palpable - Extremities Exam Additional comments: bilateral extremities are warm, dopplerable DP pulse on right. some necrosis noted to 4th toe on tip. - Neurological Exam Neurological Exam: Alert, Awake - Psychiatric Exam Psychiatric exam: Normal Affect, Normal Mood - Skin Skin Exam: Dry, Normal Color, Warm Assessment and Plan - Assessment and Plan (Free Text) Assessment: 72 y/o female s/p left to right fem-fem bypass, POD2 Plan: -physical therapy to treat -patient to be OOB -patient on ASA and plavix -f/u hgb -cont HHD -medical managment per primary team -further recs per Dr. Chucho Shah PGY1
[2017-02-13 09:06] LABS: CHLORIDE 96 mmol/L (98-107); POTASSIUM 3.2 mmol/L (3.6-5.2); SODIUM 124 mmol/L (132-148)
[2017-02-13 09:09] LABS: BLOOD UREA NITROGEN 8 mg/dL (7-17); CARBON DIOXIDE 17 mmol/L (22-30); GFR AFRICAN-AMERICAN > 60
[2017-02-13 09:10] LABS: CALCIUM 7.4 mg/dl (8.6-10.4); GLUCOSE,RANDOM 398 mg/dL (65-105)
[2017-02-13] MEDS: Bisoprolol-HCTZ 5-6.25 mg Tab PO SCH (09:24)
[2017-02-13] MEDS: (Novolin R) Insulin Human Regular 100 units/ml vial SC SCH ×4 (09:54→21:44)
[2017-02-13] MEDS: Potassium Chloride 20 mEq ER Tab PO SCH (10:15)
[2017-02-13] MEDS: Cilostazol 50 mg Tab UD PO SCH ×2 (10:16→18:20)
[2017-02-13 10:20] LABS: BASO # 0.1 K/uL (0.0-0.2); BASO % 0.4 % (0.0-2.0); EOS # 0.1 K/uL (0.0-0.7); EOS % 0.6 % (0.0-4.0); HEMATOCRIT 25.6 % (34.0-47.0); LYMPH # 0.8 K/uL (1.0-4.3); LYMPH % 4.6 % (20.0-40.0); MEAN CELL VOLUME 90.6 fL (81.0-99.0); MEAN CORPUSCULAR HEMOGLOBIN 29.5 pg (27.0-31.0); MEAN CORPUSCULAR HGB CONC 32.6 g/dL (33.0-37.0); MEAN PLATELET VOLUME 8.3 fL (7.2-11.7); MONO # 1.3 K/uL (0.0-0.8); MONO % 7.4 % (0.0-10.0); PLATELET COUNT 148 K/uL (130-400); RED CELL DISTRIBUTION WIDTH 16.4 % (11.5-14.5)
[2017-02-13 10:28] LABS: CHLORIDE 100 mmol/L (98-107)
[2017-02-13 10:29] LABS: POTASSIUM 3.9 mmol/L (3.6-5.2); SODIUM 137 mmol/L (132-148)
[2017-02-13] MEDS ORDERED: Potassium Chloride 20 mEq ER Tab PO ONE (10:30)
[2017-02-13 10:31] LABS: GFR AFRICAN-AMERICAN > 60
[2017-02-13 10:32] LABS: BLOOD UREA NITROGEN 10 mg/dL (7-17); CALCIUM 8.9 mg/dl (8.6-10.4); CARBON DIOXIDE 25 mmol/L (22-30); GLUCOSE,RANDOM 199 mg/dL (65-105)
[2017-02-13 11:08] LABS: NEUTROPHIL 83 % (50-75); TOTAL CELLS COUNTED 100
[2017-02-13] MEDS: Oxycodone/Acetaminophen 5/325 mg Tab PO PRN ×3 (11:30→23:19)
--- NOTE | 2017-02-13 13:06 | CP.PCM.PN ---
Subjective - Date & Time of Evaluation Date of Evaluation: 02/13/17 Time of Evaluation: 12:00 - Subjective Subjective: Patient was seen and examined in ICU Patient is awake alert not in any acute distress Does not complain of any pain in the foot at this time. Objective - Vital Signs/Intake and Output Vital Signs (last 24 hours): Temp Pulse Resp BP Pulse Ox 99 F 100 H 18 154/55 H 95 02/13/17 04:00 02/13/17 04:00 02/13/17 04:00 02/13/17 04:00 02/13/17 04:00 Intake and Output: 02/13/17 02/13/17 06:59 18:59 Intake Total 1350 225 Output Total 1000 450 Balance 350 -225 - Medications Medications: Current Medications Alprazolam (Xanax) 0.25 mg PO DAILY PRN PRN Reason: Anxiety Stop: 02/16/17 22:49 Amlodipine Besylate (Norvasc) 5 mg PO DAILY [facility] Last Admin: 02/13/17 09:54 Dose: 5 mg Aspirin (Ecotrin) 81 mg PO DAILY [facility] Last Admin: 02/13/17 09:54 Dose: 81 mg Bisoprolol Fumarate/HCTZ (Ziac 5-6.25 Mg) 1 tab PO DAILY [facility] Last Admin: 02/12/17 09:34 Dose: 1 tab Cilostazol (Pletal) 50 mg PO BID [facility] Last Admin: 02/13/17 10:16 Dose: 50 mg Clopidogrel Bisulfate (Plavix) 75 mg PO DAILY [facility] Last Admin: 02/13/17 09:54 Dose: 75 mg Glipizide (Glucotrol) 10 mg PO BID [facility] Last Admin: 02/13/17 09:54 Dose: 10 mg Hydromorphone HCl (Dilaudid) 0.5 mg IVP Q3H PRN PRN Reason: Pain, severe (8-10) Last Admin: 02/12/17 23:08 Dose: 0.5 mg Vancomycin/Sodium Chloride (Vancocin) 200 mls @ 133.333 mls/hr IVPB Q12H [facility] Stop: 02/14/17 11:01 Last Admin: 02/13/17 10:16 Dose: 133.333 mls/hr Insulin Human Regular (Novolin R) 0 unit SC ACHS [facility] PRN Reason: Protocol Last Admin: 02/13/17 09:54 Dose: Not Given Metformin HCl (Glucophage) 500 mg PO BIDBS [facility] Last Admin: 02/13/17 08:10 Dose: 500 mg Oxycodone/Acetaminophen (Percocet 5/325 Mg Tab) 1 tab PO Q4H PRN PRN Reason: Pain, moderate (4-7) Stop: 02/16/17 10:23 Oxycodone/Acetaminophen (Percocet 5/325 Mg Tab) 2 tab PO Q4H PRN PRN Reason: Pain, severe (8-10) Stop: 02/16/17 10:23 Pantoprazole Sodium (Protonix Inj) 40 mg IVP DAILY [facility] Last Admin: 02/13/17 09:56 Dose: 40 mg Potassium Chloride (K-Dur 20 Meq Er Tab) 20 meq PO DAILY [facility] Rosuvastatin Calcium (Crestor) 5 mg PO HS [facility] Last Admin: 02/12/17 21:37 Dose: 5 mg - Labs Labs: 02/13/17 10:17 02/13/17 10:17 PT 10.9 SECONDS (9.7-12.2) 02/11/17 07:10 INR 1.0 02/11/17 07:10 APTT 28 SECONDS (21-34) 02/11/17 07:10 - Head Exam Head Exam: ATRAUMATIC, NORMOCEPHALIC - Eye Exam Eye Exam: Normal appearance, PERRL - ENT Exam ENT Exam: Mucous Membranes Moist - Neck Exam Neck Exam: Normal Inspection - Respiratory Exam Respiratory Exam: Clear to Ausculation Bilateral. absent: Rales, Rhonchi, Wheezes - Cardiovascular Exam Cardiovascular Exam: REGULAR RHYTHM, +S1, +S2 - GI/Abdominal Exam GI & Abdominal Exam: Soft. absent: Tenderness - Extremities Exam Additional comments: Left fourth toe discoloration present. Swelling of the right foot more than the left foot. - Neurological Exam Neurological Exam: Alert, Awake, Oriented x3 Assessment and Plan (1) PVD (peripheral vascular disease) Assessment & Plan: Status post-Bypass by Dr. Rankin. Patient is on Pletal, Plavix, IV antibiotics. Continue postop management as per surgery. Status: Acute (2) Hypertension Assessment & Plan: Controlled on current medication. Patient is on Norvasc. Status: Chronic (3) Diabetes mellitus Assessment & Plan: Controlled on current medication. Patient is on insulin sliding scale and Glucophage. Status: Chronic (4) Hyperlipidemia Assessment & Plan: Patient is on statin. Status: Chronic
--- NOTE | 2017-02-13 22:22 | PN ---
DATE: 02/12/2017 SUBJECTIVE: Postoperative day #1, showed the patient was still in the intensive care unit. VITAL SIGNS: Blood pressure was 120/70, temperature 98.2, respiratory rate 16. HEENT: Pupils equal, reactive to light. Normal-appearing mucosa of the conjunctivae, oropharyngeal, and nasal membrane mucosa. NECK: Supple, no JVD, no carotid bruit, no lymph node, no thyromegaly. CHEST AND LUNGS: Bilateral symmetrical expansion, good air exchange, no rales, no rhonchi. CARDIOVASCULAR: PMI not localized. S1, S2. No additional sounds. ABDOMEN: Normoactive bowel sounds, no tenderness, no organomegaly, no masses. EXTREMITIES: No cyanosis, no clubbing, no edema. CENTRAL NERVOUS SYSTEM: Alert, awake, oriented x 2. No neurological deficits could be appreciated. ASSESSMENT: 1. Postoperative day #1, status post revascularization for severe peripheral vascular disease. 2. smoker. 3. Hypertension. PLAN: Continue current double antiplatelet therapy and follow the vascular surgery recommendation regarding postoperative care, as well as current condition. Kd Ledesma MD cc: [phone] TT: 02/13/2017 22:21:39 Confirmation # [id number] Dictation # [id number] ln MTDD
[2017-02-14] MEDS: Oxycodone/Acetaminophen 5/325 mg Tab PO PRN ×2 (05:32→12:29)
[2017-02-14 06:31] LABS: BASO % 0.3 % (0.0-2.0); EOS # 0.2 K/uL (0.0-0.7); EOS % 1.4 % (0.0-4.0); HEMATOCRIT 24.2 % (34.0-47.0); LYMPH # 1.4 K/uL (1.0-4.3); LYMPH % 8.9 % (20.0-40.0); MEAN CELL VOLUME 90.3 fL (81.0-99.0); MEAN CORPUSCULAR HEMOGLOBIN 29.6 pg (27.0-31.0); MEAN CORPUSCULAR HGB CONC 32.8 g/dL (33.0-37.0); MEAN PLATELET VOLUME 8.9 fL (7.2-11.7); MONO # 1.5 K/uL (0.0-0.8); MONO % 9.4 % (0.0-10.0); PLATELET COUNT 153 K/uL (130-400); RED CELL DISTRIBUTION WIDTH 16.3 % (11.5-14.5); WHITE BLOOD COUNT 15.5 K/uL (4.8-10.8)
[2017-02-14 06:38] LABS: CHLORIDE 100 mmol/L (98-107); POTASSIUM 3.4 mmol/L (3.6-5.2); SODIUM 134 mmol/L (132-148)
[2017-02-14 06:41] LABS: CARBON DIOXIDE 24 mmol/L (22-30); GFR AFRICAN-AMERICAN > 60
[2017-02-14 06:42] LABS: BLOOD UREA NITROGEN 11 mg/dL (7-17); CALCIUM 8.6 mg/dl (8.6-10.4); GLUCOSE,RANDOM 83 mg/dL (65-105)
[2017-02-14] MEDS: (Novolin R) Insulin Human Regular 100 units/ml vial SC SCH ×4 (07:59→22:00)
[2017-02-14 08:23] LABS: BASOPHIL 1 % (0-2); EOSINOPHIL 2 % (0-4); NEUTROPHIL 75 % (50-75); TOTAL CELLS COUNTED 100
[2017-02-14 08:24] LABS: LARGE PLATELETS PRESENT
[2017-02-14] MEDS: Potassium Chloride 20 mEq ER Tab PO SCH (09:47)
[2017-02-14] MEDS: Vancomycin 1 gm/NS 200 ml 200 ML IVPB SCH (10:01)
[2017-02-14] MEDS: Cilostazol 50 mg Tab UD PO SCH ×2 (10:01→17:46)
--- NOTE | 2017-02-14 10:47 | CP.PCM.PN ---
Subjective - Date & Time of Evaluation Date of Evaluation: 02/14/17 Time of Evaluation: 10:46 - Subjective Subjective: doing well in icu due to bed issues good pulse in graft wbc elevated but no evidence of infection dc to rehab or home when ready fu office 1 week Objective - Vital Signs/Intake and Output Vital Signs (last 24 hours): Temp Pulse Resp BP Pulse Ox 98.9 F 88 16 141/56 L 96 02/14/17 08:00 02/14/17 06:00 02/14/17 08:00 02/14/17 00:00 02/14/17 06:00 Intake and Output: 02/14/17 02/14/17 06:59 18:59 Intake Total 800 Output Total 300 Balance 500 - Medications Medications: Current Medications Alprazolam (Xanax) 0.25 mg PO DAILY PRN PRN Reason: Anxiety Stop: 02/16/17 22:49 Amlodipine Besylate (Norvasc) 5 mg PO DAILY [facility] Last Admin: 02/14/17 09:48 Dose: 5 mg Aspirin (Ecotrin) 81 mg PO DAILY [facility] Last Admin: 02/14/17 09:47 Dose: 81 mg Bisoprolol Fumarate/HCTZ (Ziac 5-6.25 Mg) 1 tab PO DAILY [facility] Last Admin: 02/13/17 09:24 Dose: 1 tab Cilostazol (Pletal) 50 mg PO BID [facility] Last Admin: 02/14/17 10:01 Dose: 50 mg Clopidogrel Bisulfate (Plavix) 75 mg PO DAILY [facility] Last Admin: 02/14/17 09:48 Dose: 75 mg Glipizide (Glucotrol) 10 mg PO BID [facility] Last Admin: 02/14/17 09:23 Dose: Not Given Hydromorphone HCl (Dilaudid) 0.5 mg IVP Q3H PRN PRN Reason: Pain, severe (8-10) Last Admin: 02/12/17 23:08 Dose: 0.5 mg Vancomycin/Sodium Chloride (Vancocin) 200 mls @ 133.333 mls/hr IVPB Q12H [facility] Stop: 02/14/17 11:01 Last Admin: 02/14/17 10:01 Dose: 133.333 mls/hr Insulin Human Regular (Novolin R) 0 unit SC [facility] PRN Reason: Protocol Last Admin: 02/14/17 07:59 Dose: Not Given Metformin HCl (Glucophage) 500 mg PO BIDBS [facility] Last Admin: 02/14/17 08:15 Dose: 500 mg Oxycodone/Acetaminophen (Percocet 5/325 Mg Tab) 1 tab PO Q4H PRN PRN Reason: Pain, moderate (4-7) Stop: 02/16/17 10:23 Last Admin: 02/14/17 05:32 Dose: 1 tab Oxycodone/Acetaminophen (Percocet 5/325 Mg Tab) 2 tab PO Q4H PRN PRN Reason: Pain, severe (8-10) Stop: 02/16/17 10:23 Last Admin: 02/13/17 11:30 Dose: 2 tab Pantoprazole Sodium (Protonix Inj) 40 mg IVP DAILY [facility] Last Admin: 02/14/17 09:48 Dose: 40 mg Potassium Chloride (K-Dur 20 Meq Er Tab) 20 meq PO DAILY [facility] Last Admin: 02/14/17 09:47 Dose: 20 meq Rosuvastatin Calcium (Crestor) 5 mg PO HS [facility] Last Admin: 02/13/17 21:43 Dose: 5 mg - Labs Labs: 02/14/17 06:21 02/14/17 06:21 PT 10.9 SECONDS (9.7-12.2) 02/11/17 07:10 INR 1.0 02/11/17 07:10 APTT 28 SECONDS (21-34) 02/11/17 07:10
[2017-02-14] MEDS ORDERED: POLYETHYLENE GLYCOL 3350 17 GM/Dose PACKET PO ONE ×2 (12:30→14:00)
--- NOTE | 2017-02-14 12:30 | CP.PCM.PN ---
Subjective - Date & Time of Evaluation Date of Evaluation: 02/14/17 Time of Evaluation: 12:00 - Subjective Subjective: Patient was seen and examined at bedside in ICU Patient to is in ICU because of for lack of availability of ICU beds She complains of for lower abdominal pain and also pain in the right foot She stated that she had similar pain this morning and she was given pain medication and the pain was completely resolved. She is also complaining of constipation Objective - Vital Signs/Intake and Output Vital Signs (last 24 hours): Temp Pulse Resp BP Pulse Ox 98.9 F 88 16 141/56 L 96 02/14/17 08:00 02/14/17 06:00 02/14/17 08:00 02/14/17 00:00 02/14/17 06:00 Intake and Output: 02/14/17 02/14/17 06:59 18:59 Intake Total 800 Output Total 300 Balance 500 - Medications Medications: Current Medications Alprazolam (Xanax) 0.25 mg PO DAILY PRN PRN Reason: Anxiety Stop: 02/16/17 22:49 Amlodipine Besylate (Norvasc) 5 mg PO DAILY [facility] Last Admin: 02/14/17 09:48 Dose: 5 mg Aspirin (Ecotrin) 81 mg PO DAILY [facility] Last Admin: 02/14/17 09:47 Dose: 81 mg Bisoprolol Fumarate/HCTZ (Ziac 5-6.25 Mg) 1 tab PO DAILY [facility] Last Admin: 02/13/17 09:24 Dose: 1 tab Cilostazol (Pletal) 50 mg PO BID [facility] Last Admin: 02/14/17 10:01 Dose: 50 mg Clopidogrel Bisulfate (Plavix) 75 mg PO DAILY [facility] Last Admin: 02/14/17 09:48 Dose: 75 mg Docusate Sodium (Colace) 100 mg PO BID [facility] Glipizide (Glucotrol) 10 mg PO BID [facility] Last Admin: 02/14/17 09:23 Dose: Not Given Hydromorphone HCl (Dilaudid) 0.5 mg IVP Q3H PRN PRN Reason: Pain, severe (8-10) Last Admin: 02/12/17 23:08 Dose: 0.5 mg Insulin Human Regular (Novolin R) 0 unit SC ACHS [facility] PRN Reason: Protocol Last Admin: 02/14/17 07:59 Dose: Not Given Metformin HCl (Glucophage) 500 mg PO BIDBS [facility] Last Admin: 02/14/17 08:15 Dose: 500 mg Oxycodone/Acetaminophen (Percocet 5/325 Mg Tab) 1 tab PO Q4H PRN PRN Reason: Pain, moderate (4-7) Stop: 02/16/17 10:23 Last Admin: 02/14/17 05:32 Dose: 1 tab Oxycodone/Acetaminophen (Percocet 5/325 Mg Tab) 2 tab PO Q4H PRN PRN Reason: Pain, severe (8-10) Stop: 02/16/17 10:23 Last Admin: 02/13/17 11:30 Dose: 2 tab Pantoprazole Sodium (Protonix Ec Tab) 40 mg PO DAILY [facility] Potassium Chloride (K-Dur 20 Meq Er Tab) 20 meq PO DAILY [facility] Last Admin: 02/14/17 09:47 Dose: 20 meq Rosuvastatin Calcium (Crestor) 5 mg PO HS [facility] Last Admin: 02/13/17 21:43 Dose: 5 mg - Labs Labs: 02/14/17 06:21 02/14/17 06:21 PT 10.9 SECONDS (9.7-12.2) 02/11/17 07:10 INR 1.0 02/11/17 07:10 APTT 28 SECONDS (21-34) 02/11/17 07:10 - Head Exam Head Exam: ATRAUMATIC, NORMOCEPHALIC - Eye Exam Eye Exam: EOMI, Normal appearance - ENT Exam ENT Exam: Mucous Membranes Moist - Respiratory Exam Respiratory Exam: Clear to Ausculation Bilateral - Cardiovascular Exam Cardiovascular Exam: REGULAR RHYTHM, +S1, +S2 - GI/Abdominal Exam GI & Abdominal Exam: Soft, Tenderness, Normal Bowel Sounds Additional comments: Tenderness in the suprapubic region. - Extremities Exam Additional comments: Right foot swelling more than the left foot. Right fourth toe discoloration noted. - Neurological Exam Neurological Exam: Alert, Oriented x3 Assessment and Plan (1) PVD (peripheral vascular disease) Assessment & Plan: Status post-Bypass by Dr. Rankin. Patient is on Pletal, Plavix, IV antibiotics. Continue postop management as per surgery. Patient is cleared for discharge to [facility] by surgery. Status: Acute (2) Hypertension Assessment & Plan: Controlled on current medication. Patient on Norvasc. Status: Chronic (3) Diabetes mellitus Assessment & Plan: Controlled on current medication. Status: Chronic (4) Hyperlipidemia Assessment & Plan: Continue statin. Status: Chronic (5) Anemia Assessment & Plan: Patient's H&H is dropping. We will continue to monitor Obvious signs of bleeding If H&H drops further, we will consider transfusion. Status: Acute (6) Constipation Assessment & Plan: Started patient on Colace and MiraLAX. Status: Acute - Assessment and Plan (Free Text) Plan: Discussed the plan of care with the nursing staff. Continue to monitor the patient and will discharge if H&H is stable and when bed is available
[2017-02-14] MEDS: Bisoprolol-HCTZ 5-6.25 mg Tab PO SCH (14:04)
[2017-02-15] MEDS: Oxycodone/Acetaminophen 5/325 mg Tab PO PRN ×2 (03:18→15:20)
[2017-02-15 06:35] LABS: BASO # 0.1 K/uL (0.0-0.2); BASO % 0.6 % (0.0-2.0); EOS # 0.2 K/uL (0.0-0.7); EOS % 2.2 % (0.0-4.0); HEMATOCRIT 21.2 % (34.0-47.0); LYMPH # 1.2 K/uL (1.0-4.3); LYMPH % 10.6 % (20.0-40.0); MEAN CELL VOLUME 90.7 fL (81.0-99.0); MEAN CORPUSCULAR HEMOGLOBIN 29.5 pg (27.0-31.0); MEAN CORPUSCULAR HGB CONC 32.5 g/dL (33.0-37.0); MEAN PLATELET VOLUME 9.1 fL (7.2-11.7); MONO # 1.3 K/uL (0.0-0.8); MONO % 11.7 % (0.0-10.0); RED CELL DISTRIBUTION WIDTH 16.1 % (11.5-14.5); WHITE BLOOD COUNT 11.4 K/uL (4.8-10.8)
[2017-02-15 06:50] LABS: CHLORIDE 102 mmol/L (98-107)
[2017-02-15 06:51] LABS: POTASSIUM 4.1 mmol/L (3.6-5.2); SODIUM 134 mmol/L (132-148)
[2017-02-15 06:53] LABS: GFR AFRICAN-AMERICAN > 60
[2017-02-15 06:54] LABS: BLOOD UREA NITROGEN 12 mg/dL (7-17); CARBON DIOXIDE 23 mmol/L (22-30); GLUCOSE,RANDOM 82 mg/dL (65-105)
[2017-02-15] MEDS ORDERED: POLYETHYLENE GLYCOL 3350 17 GM/Dose PACKET PO ONE (09:15)
--- NOTE | 2017-02-15 09:25 | CP.PCM.PN ---
<Ella Valadez Karrie - Last Filed: 02/15/17 09:25> Subjective - Date & Time of Evaluation Date of Evaluation: 02/15/17 Time of Evaluation: 09:00 - Subjective Subjective: PGY3 on Medicine Service Patient seen and examined at bedside. Denies chest pain, fevers, chills, SOB, nausea, vomiting, dizziness, lightheadedness, blood per rectum or bloody emesis. Sitting comfortably on the side of the bed. No other complaints Objective - Vital Signs/Intake and Output Vital Signs (last 24 hours): Temp Pulse Resp BP Pulse Ox 98 F 84 16 116/55 L 95 02/15/17 06:00 02/15/17 06:00 02/15/17 06:00 02/15/17 06:00 02/15/17 06:00 - Medications Medications: Current Medications Alprazolam (Xanax) 0.25 mg PO DAILY PRN PRN Reason: Anxiety Stop: 02/16/17 22:49 Amlodipine Besylate (Norvasc) 5 mg PO DAILY [facility] Last Admin: 02/14/17 09:48 Dose: 5 mg Aspirin (Ecotrin) 81 mg PO DAILY [facility] Last Admin: 02/14/17 09:47 Dose: 81 mg Bisoprolol Fumarate/HCTZ (Ziac 5-6.25 Mg) 1 tab PO DAILY [facility] Last Admin: 02/14/17 14:04 Dose: 1 tab Cilostazol (Pletal) 50 mg PO BID [facility] Last Admin: 02/14/17 17:46 Dose: 50 mg Clopidogrel Bisulfate (Plavix) 75 mg PO DAILY [facility] Last Admin: 02/14/17 09:48 Dose: 75 mg Docusate Sodium (Colace) 100 mg PO BID [facility] Last Admin: 02/14/17 17:45 Dose: 100 mg Glipizide (Glucotrol) 10 mg PO BID [facility] Last Admin: 02/14/17 17:44 Dose: Not Given Hydromorphone HCl (Dilaudid) 0.5 mg IVP Q3H PRN PRN Reason: Pain, severe (8-10) Last Admin: 02/12/17 23:08 Dose: 0.5 mg Insulin Human Regular (Novolin R) 0 unit SC ACHS [facility] PRN Reason: Protocol Last Admin: 02/14/17 22:00 Dose: Not Given Metformin HCl (Glucophage) 500 mg PO BIDBS [facility] Last Admin: 02/14/17 17:45 Dose: 500 mg Oxycodone/Acetaminophen (Percocet 5/325 Mg Tab) 1 tab PO Q4H PRN PRN Reason: Pain, moderate (4-7) Stop: 02/16/17 10:23 Last Admin: 02/15/17 03:18 Dose: 1 tab Oxycodone/Acetaminophen (Percocet 5/325 Mg Tab) 2 tab PO Q4H PRN PRN Reason: Pain, severe (8-10) Stop: 02/16/17 10:23 Last Admin: 02/13/17 11:30 Dose: 2 tab Pantoprazole Sodium (Protonix Ec Tab) 40 mg PO DAILY [facility] Potassium Chloride (K-Dur 20 Meq Er Tab) 20 meq PO DAILY [facility] Last Admin: 02/14/17 09:47 Dose: 20 meq Rosuvastatin Calcium (Crestor) 5 mg PO HS [facility] Last Admin: 02/14/17 22:08 Dose: 5 mg - Labs Labs: 02/15/17 06:27 02/15/17 06:27 PT 10.9 SECONDS (9.7-12.2) 02/11/17 07:10 INR 1.0 02/11/17 07:10 APTT 28 SECONDS (21-34) 02/11/17 07:10 - Constitutional Appears: Non-toxic, No Acute Distress - Head Exam Head Exam: ATRAUMATIC, NORMAL INSPECTION, NORMOCEPHALIC - Eye Exam Eye Exam: Normal appearance - ENT Exam ENT Exam: Mucous Membranes Moist - Respiratory Exam Respiratory Exam: Clear to Ausculation Bilateral, NORMAL BREATHING PATTERN - Cardiovascular Exam Cardiovascular Exam: REGULAR RHYTHM, RRR, +S1, +S2 - GI/Abdominal Exam GI & Abdominal Exam: Soft, Normal Bowel Sounds. absent: Tenderness - Extremities Exam Extremities Exam: Pedal Edema (R>L) - Neurological Exam Neurological Exam: Alert, Oriented x3 - Psychiatric Exam Psychiatric exam: Normal Affect, Normal Mood - Skin Skin Exam: Dry, Normal Color, Warm Assessment and Plan - Assessment and Plan (Free Text) Assessment: (1) PVD (peripheral vascular disease) Assessment & Plan: Status post-Bypass by Dr. Rankin. Patient is on Pletal, Plavix, IV antibiotics. Continue postop management as per surgery. Status: Acute (2) Hypertension Assessment & Plan: Controlled on current medication. Patient on Norvasc. Status: Chronic (3) Diabetes mellitus Assessment & Plan: Controlled on current medication. Status: Chronic (4) Hyperlipidemia Assessment & Plan: Continue statin. Status: Chronic (5) Anemia Assessment & Plan: hgb 6.9 this AM- transfuse 2 units of PRBC's- consent obtained- recheck H/H 4 hours after transfusion Status: Acute (6) Constipation Assessment & Plan: Continue Colace and MiraLAX. Status: Acute Transfer to Medical floor with tele when bed is available <Aaron Villarreal - Last Filed: 02/15/17 12:59> Objective - Vital Signs/Intake and Output Vital Signs (last 24 hours): Temp Pulse Resp BP Pulse Ox 97.9 F 84 18 132/55 L 95 02/15/17 08:00 02/15/17 08:00 02/15/17 08:00 02/15/17 08:00 02/15/17 06:00 Intake and Output: 02/15/17 02/15/17 06:59 18:59 Intake Total 225 Output Total 600 Balance -375 - Medications Medications: Current Medications Alprazolam (Xanax) 0.25 mg PO DAILY PRN PRN Reason: Anxiety Stop: 02/16/17 22:49 Amlodipine Besylate (Norvasc) 5 mg PO DAILY [facility] Last Admin: 02/15/17 10:07 Dose: 5 mg Aspirin (Ecotrin) 81 mg PO DAILY [facility] Last Admin: 02/15/17 10:06 Dose: 81 mg Bisoprolol Fumarate/HCTZ (Ziac 5-6.25 Mg) 1 tab PO DAILY [facility] Last Admin: 02/15/17 10:07 Dose: 1 tab Cilostazol (Pletal) 50 mg PO BID [facility] Last Admin: 02/15/17 10:10 Dose: 50 mg Clopidogrel Bisulfate (Plavix) 75 mg PO DAILY [facility] Last Admin: 02/15/17 10:07 Dose: 75 mg Docusate Sodium (Colace) 100 mg PO BID [facility] Last Admin: 02/15/17 10:07 Dose: 100 mg Glipizide (Glucotrol) 10 mg PO BID [facility] Last Admin: 02/15/17 10:08 Dose: Not Given Hydromorphone HCl (Dilaudid) 0.5 mg IVP Q3H PRN PRN Reason: Pain, severe (8-10) Last Admin: 02/12/17 23:08 Dose: 0.5 mg Insulin Human Regular (Novolin R) 0 unit SC ACHS [facility] PRN Reason: Protocol Last Admin: 02/15/17 12:12 Dose: Not Given Metformin HCl (Glucophage) 500 mg PO BIDBS [facility] Last Admin: 02/15/17 10:08 Dose: Not Given Oxycodone/Acetaminophen (Percocet 5/325 Mg Tab) 1 tab PO Q4H PRN PRN Reason: Pain, moderate (4-7) Stop: 02/16/17 10:23 Last Admin: 02/15/17 03:18 Dose: 1 tab Oxycodone/Acetaminophen (Percocet 5/325 Mg Tab) 2 tab PO Q4H PRN PRN Reason: Pain, severe (8-10) Stop: 02/16/17 10:23 Last Admin: 02/13/17 11:30 Dose: 2 tab Pantoprazole Sodium (Protonix Ec Tab) 40 mg PO DAILY [facility] Last Admin: 02/15/17 10:06 Dose: 40 mg Potassium Chloride (K-Dur 20 Meq Er Tab) 20 meq PO DAILY [facility] Last Admin: 02/15/17 10:06 Dose: 20 meq Rosuvastatin Calcium (Crestor) 5 mg PO HS [facility] Last Admin: 02/14/17 22:08 Dose: 5 mg - Labs Labs: 02/15/17 06:27 02/15/17 06:27 PT 10.9 SECONDS (9.7-12.2) 02/11/17 07:10 INR 1.0 02/11/17 07:10 APTT 28 SECONDS (21-34) 02/11/17 07:10 Assessment and Plan (1) PVD (peripheral vascular disease) Status: Acute (2) Hypertension Status: Chronic (3) Diabetes mellitus Status: Chronic (4) Hyperlipidemia Status: Chronic (5) Anemia Status: Acute (6) Constipation Status: Acute Attending/Attestation - Attestation I have personally seen and examined this patient.: Yes I have fully participated in the care of the patient.: Yes I have reviewed all pertinent clinical information, including history, physical exam and plan: Yes Notes (Text): 02/15/17 12:56 Patient was seen and examined at bedside Patient denies any shortness of breath, chest pain, nausea, vomiting Patient's labs noted and found to be anemic but no bleeding has been reported. Patient's groin surgical wounds examined and they are clean and dry. Jesus in place. Patient has not had a bowel movement in about 3 days and we will give her another dose of MiraLAX today. We will transfuse the patient's 2 units of PRBC and we will check the level again. Discussed the plan of care with the resident. Discussed with the nursing staff. Discussed with Dr. Rankin. I agree with the above history and physical and assessment/plan by the resident.
[2017-02-15] MEDS: Pantoprazole 40 mg EC Tab PO SCH (10:06)
[2017-02-15] MEDS: Potassium Chloride 20 mEq ER Tab PO SCH (10:06)
[2017-02-15] MEDS: Bisoprolol-HCTZ 5-6.25 mg Tab PO SCH (10:07)
[2017-02-15] MEDS: (Novolin R) Insulin Human Regular 100 units/ml vial SC SCH ×4 (10:08→21:49)
[2017-02-15] MEDS: Cilostazol 50 mg Tab UD PO SCH (10:10)
--- NOTE | 2017-02-15 11:35 | CP.PCM.PN ---
Subjective - Date & Time of Evaluation Date of Evaluation: 02/15/17 Time of Evaluation: 11:16 - Subjective Subjective: see dictation Objective - Vital Signs/Intake and Output Vital Signs (last 24 hours): Temp Pulse Resp BP Pulse Ox 98 F 84 16 116/55 L 95 02/15/17 06:00 02/15/17 06:00 02/15/17 06:00 02/15/17 06:00 02/15/17 06:00 - Medications Medications: Current Medications Alprazolam (Xanax) 0.25 mg PO DAILY PRN PRN Reason: Anxiety Stop: 02/16/17 22:49 Amlodipine Besylate (Norvasc) 5 mg PO DAILY [facility] Last Admin: 02/15/17 10:07 Dose: 5 mg Aspirin (Ecotrin) 81 mg PO DAILY [facility] Last Admin: 02/15/17 10:06 Dose: 81 mg Bisoprolol Fumarate/HCTZ (Ziac 5-6.25 Mg) 1 tab PO DAILY [facility] Last Admin: 02/15/17 10:07 Dose: 1 tab Cilostazol (Pletal) 50 mg PO BID [facility] Last Admin: 02/15/17 10:10 Dose: 50 mg Clopidogrel Bisulfate (Plavix) 75 mg PO DAILY [facility] Last Admin: 02/15/17 10:07 Dose: 75 mg Docusate Sodium (Colace) 100 mg PO BID [facility] Last Admin: 02/15/17 10:07 Dose: 100 mg Glipizide (Glucotrol) 10 mg PO BID [facility] Last Admin: 02/15/17 10:08 Dose: Not Given Hydromorphone HCl (Dilaudid) 0.5 mg IVP Q3H PRN PRN Reason: Pain, severe (8-10) Last Admin: 02/12/17 23:08 Dose: 0.5 mg Insulin Human Regular (Novolin R) 0 unit SC ACHS [facility] PRN Reason: Protocol Last Admin: 02/15/17 10:08 Dose: Not [facility] Last Admin: 02/15/17 10:08 Dose: Not Given Oxycodone/Acetaminophen (Percocet 5/325 Mg Tab) 1 tab PO Q4H PRN PRN Reason: Pain, moderate (4-7) Stop: 02/16/17 10:23 Last Admin: 02/15/17 03:18 Dose: 1 tab Oxycodone/Acetaminophen (Percocet 5/325 Mg Tab) 2 tab PO Q4H PRN PRN Reason: Pain, severe (8-10) Stop: 02/16/17 10:23 Last Admin: 02/13/17 11:30 Dose: 2 tab Pantoprazole Sodium (Protonix Ec Tab) 40 mg PO DAILY [facility] Last Admin: 02/15/17 10:06 Dose: 40 mg Potassium Chloride (K-Dur 20 Meq Er Tab) 20 meq PO DAILY [facility] Last Admin: 02/15/17 10:06 Dose: 20 meq Rosuvastatin Calcium (Crestor) 5 mg PO HS [facility] Last Admin: 02/14/17 22:08 Dose: 5 mg - Labs Labs: 02/15/17 06:27 02/15/17 06:27 PT 10.9 SECONDS (9.7-12.2) 02/11/17 07:10 INR 1.0 02/11/17 07:10 APTT 28 SECONDS (21-34) 02/11/17 07:10
[2017-02-15 22:50] LABS: BASO % 0.4 % (0.0-2.0); EOS # 0.3 K/uL (0.0-0.7); EOS % 2.4 % (0.0-4.0); HEMATOCRIT 29.1 % (34.0-47.0); LYMPH # 1.5 K/uL (1.0-4.3); LYMPH % 12.7 % (20.0-40.0); MEAN CELL VOLUME 89.2 fL (81.0-99.0); MEAN CORPUSCULAR HEMOGLOBIN 29.5 pg (27.0-31.0); MEAN PLATELET VOLUME 8.7 fL (7.2-11.7); MONO # 1.3 K/uL (0.0-0.8); MONO % 11.6 % (0.0-10.0); RED CELL DISTRIBUTION WIDTH 16.1 % (11.5-14.5); WHITE BLOOD COUNT 11.6 K/uL (4.8-10.8)
[2017-02-16] MEDS: Oxycodone/Acetaminophen 5/325 mg Tab PO PRN ×3 (01:02→16:14)
[2017-02-16 06:47] LABS: BASO % 0.5 % (0.0-2.0); EOS # 0.3 K/uL (0.0-0.7); EOS % 3.4 % (0.0-4.0); LYMPH # 1.1 K/uL (1.0-4.3); LYMPH % 11.6 % (20.0-40.0); MEAN CELL VOLUME 89.4 fL (81.0-99.0); MEAN CORPUSCULAR HEMOGLOBIN 29.2 pg (27.0-31.0); MEAN CORPUSCULAR HGB CONC 32.7 g/dL (33.0-37.0); MEAN PLATELET VOLUME 8.4 fL (7.2-11.7); MONO # 0.9 K/uL (0.0-0.8); MONO % 10.1 % (0.0-10.0); NRBC % 0.1 % (0.0-2.0); RED CELL DISTRIBUTION WIDTH 16.1 % (11.5-14.5); WHITE BLOOD COUNT 9.3 K/uL (4.8-10.8)
[2017-02-16 06:51] LABS: CHLORIDE 102 mmol/L (98-107)
[2017-02-16 06:52] LABS: POTASSIUM 3.8 mmol/L (3.6-5.2); SODIUM 137 mmol/L (132-148)
[2017-02-16 06:54] LABS: ALKALINE PHOSPHATASE 90 U/L (38-126); ALT/SGPT 17 U/L (9-52); AST/SGOT 21 U/L (14-36); BILIRUBIN,TOTAL 0.7 mg/dL (0.2-1.3); BLOOD UREA NITROGEN 12 mg/dL (7-17); CARBON DIOXIDE 24 mmol/L (22-30); GFR AFRICAN-AMERICAN > 60; TOTAL PROTEIN 6.6 g/dL (6.3-8.3)
[2017-02-16 06:55] LABS: CALCIUM 8.3 mg/dl (8.6-10.4); GLUCOSE,RANDOM 76 mg/dL (65-105); MAGNESIUM 1.5 mg/dL (1.6-2.3); PHOSPHOROUS 3.7 mg/dL (2.5-4.5)
[2017-02-16] MEDS: (Novolin R) Insulin Human Regular 100 units/ml vial SC SCH ×4 (08:55→21:48)
[2017-02-16] MEDS ORDERED: ALENDRONATE PO SCH (10:00)
[2017-02-16] MEDS: Pantoprazole 40 mg EC Tab PO SCH (10:24)
[2017-02-16] MEDS: Potassium Chloride 20 mEq ER Tab PO SCH (10:24)
[2017-02-16] MEDS: Bisoprolol-HCTZ 5-6.25 mg Tab PO SCH (10:32)
[2017-02-16] MEDS: Cilostazol 50 mg Tab UD PO SCH ×2 (10:32→17:52)
--- NOTE | 2017-02-16 16:03 | CP.PCM.PN ---
Subjective - Date & Time of Evaluation Date of Evaluation: 02/16/17 Time of Evaluation: 07:30 - Subjective Subjective: Vascular surgery Dr. Rankin Pt S&E @bedside. ELIZABETH. pt in good spirits sitting on side of bed. c/o R leg pain however improved. denies N/V, F/C. tolerating diet. reports OOB to chair and ambulating halls. Objective - Vital Signs/Intake and Output Vital Signs (last 24 hours): Temp Pulse Resp BP Pulse Ox 98.6 F 70 16 173/68 H 95 02/16/17 06:00 02/16/17 14:19 02/16/17 06:00 02/16/17 10:32 02/16/17 06:00 Intake and Output: 02/16/17 02/16/17 06:59 18:59 Intake Total 600 450 Output Total 500 Balance 100 450 - Medications Medications: Current Medications Alprazolam (Xanax) 0.25 mg PO DAILY PRN PRN Reason: Anxiety Stop: 02/16/17 22:49 Last Admin: 02/16/17 10:24 Dose: 0.25 mg Amlodipine Besylate (Norvasc) 5 mg PO DAILY [facility] Last Admin: 02/16/17 10:25 Dose: 5 mg Aspirin (Ecotrin) 81 mg PO DAILY [facility] Last Admin: 02/16/17 10:25 Dose: 81 mg Bisoprolol Fumarate/HCTZ (Ziac 5-6.25 Mg) 1 tab PO DAILY [facility] Last Admin: 02/16/17 10:32 Dose: 1 tab Cilostazol (Pletal) 50 mg PO BID [facility] Last Admin: 02/16/17 10:32 Dose: 50 mg Clopidogrel Bisulfate (Plavix) 75 mg PO DAILY [facility] Last Admin: 02/16/17 10:24 Dose: 75 mg Docusate Sodium (Colace) 100 mg PO BID [facility] Last Admin: 02/16/17 10:24 Dose: 100 mg Glipizide (Glucotrol) 10 mg PO BID [facility] Last Admin: 02/16/17 10:24 Dose: 10 mg Insulin Human Regular (Novolin R) 0 unit SC ACHS [facility] PRN Reason: Protocol Last Admin: 02/16/17 11:30 Dose: Not Given [facility] Admin: 02/15/17 18:23 Dose: Not Given Oxycodone/Acetaminophen (Percocet 5/325 Mg Tab) 1 tab PO Q4H PRN PRN Reason: pain Stop: 02/19/17 15:51 Pantoprazole Sodium (Protonix Ec Tab) 40 mg PO DAILY [facility] Last Admin: 02/16/17 10:24 Dose: 40 mg Potassium Chloride (K-Dur 20 Meq Er Tab) 20 meq PO DAILY [facility] Last Admin: 02/16/17 10:24 Dose: 20 meq Rosuvastatin Calcium (Crestor) 5 mg PO HS [facility] Last Admin: 02/15/17 21:48 Dose: 5 mg - Labs Labs: 02/16/17 06:41 02/16/17 06:36 PT 10.9 SECONDS (9.7-12.2) 02/11/17 07:10 INR 1.0 02/11/17 07:10 APTT 28 SECONDS (21-34) 02/11/17 07:10 - Constitutional Appears: Non-toxic, No Acute Distress - Head Exam Head Exam: NORMAL INSPECTION - Eye Exam Eye Exam: Normal appearance - ENT Exam ENT Exam: Mucous Membranes Moist - Respiratory Exam Respiratory Exam: NORMAL BREATHING PATTERN. absent: Accessory Muscle Use, Respiratory Distress - GI/Abdominal Exam GI & Abdominal Exam: Soft. absent: Distended, Tenderness Additional comments: dressings c/d/i palpable pulses - Extremities Exam Extremities Exam: Pedal Edema (2+ pitting edema) Additional comments: warmth equal B/L LE unable to palpate DPs - Neurological Exam Neurological Exam: Alert, Awake, Oriented x3 - Psychiatric Exam Psychiatric exam: Normal Affect, Normal Mood - Skin Skin Exam: Dry, Intact, Normal Color, Warm Assessment and Plan - Assessment and Plan (Free Text) Assessment: 72 y/o F POD#5 s/p left to right fem-fem bypass - cont PT - encourage OOB to chair/Amb/IS use - cont ASA and plavix - cont HHD - cont medical management per primary team - pt cleared for discharge from surgical standpoint Further recs per Dr. Chucho Martinez DO PGY1
[2017-02-16 17:30] VITALS: RESP 20
--- NOTE | 2017-02-16 18:25 | PN ---
DATE: 02/16/2017 SUBJECTIVE: The patient is seen today, 02/16/2017. She is having slight groin pain. Otherwise, pain is improving. OBJECTIVE: VITAL SIGNS: Blood pressure 120/59, temperature 98.3, respiratory rate 20, and pulse 73. HEENT: Pupils equal, reactive to light. Normal-appearing mucosa of the conjunctivae, oropharyngeal and nasal membrane mucosa. NECK: Supple, no JVD, no carotid bruit, no lymph node, no thyromegaly. CHEST AND LUNGS: Bilateral symmetrical expansion, good air exchange, no rales, no rhonchi. CARDIOVASCULAR: PMI not localized. S1, S2. No additional sounds. ABDOMEN: Normoactive bowel sounds, no tenderness, no organomegaly, no masses. EXTREMITIES: No cyanosis, no clubbing, no edema. CENTRAL NERVOUS SYSTEM: Alert, awake, oriented x 3. No neurological deficits could be appreciated. ASSESSMENT: 1. Severe peripheral vascular disease, status post bypass surgery for revascularization. 2. Hypertension. 3. Type 2 diabetes mellitus. PLAN: Continue current antiplatelet medications. Accu-Cheks with insulin coverage. Continue Percocet p.r.n. for pain. Plan for discharge to a subacute rehabilitation. [facility] Lalit Ledesma MD cc: 167 TT: 02/16/2017 18:25:09 Confirmation # [id number] Dictation # [id number] linda NEVAREZ
[2017-02-17] MEDS: Oxycodone/Acetaminophen 5/325 mg Tab PO PRN ×2 (00:45→11:49)
[2017-02-17] MEDS: (Novolin R) Insulin Human Regular 100 units/ml vial SC SCH ×2 (08:30→12:30)
[2017-02-17 09:13] VITALS: BP 138/82; PULSE 80; TEMP 98.2; O2SAT 92
[2017-02-17] MEDS: Cilostazol 50 mg Tab UD PO SCH (11:00)
[2017-02-17] MEDS: Pantoprazole 40 mg EC Tab PO SCH (11:00)
[2017-02-17] MEDS: Potassium Chloride 20 mEq ER Tab PO SCH (11:00)
[2017-02-17] MEDS: Bisoprolol-HCTZ 5-6.25 mg Tab PO SCH (11:00)
--- NOTE | 2017-02-17 13:29 | PN ---
DATE: 02/17/2017 She still has some groin pain for which she is taking Percocet. PHYSICAL EXAMINATION: VITAL SIGNS: Blood pressure 138/82, temperature 98.2, respiratory rate 20, and pulse 80. HEENT: Pupils equal, reactive to light. Normal-appearing mucosa of the conjunctivae, oropharyngeal and nasal membrane mucosa. NECK: Supple, no JVD, no carotid bruit, no lymph node, no thyromegaly. CHEST AND LUNGS: Bilateral symmetrical expansion, good air exchange, no rales, no rhonchi. CARDIOVASCULAR: PMI not localized. S1, S2. No additional sounds. ABDOMEN: Normoactive bowel sounds, no tenderness, no organomegaly, no masses. EXTREMITIES: No cyanosis, no clubbing, no edema. CENTRAL NERVOUS SYSTEM: Alert, awake, oriented x 3. No neurological deficit could be appreciated. ASSESSMENT: 1. Severe peripheral vascular disease, status post bypass surgery. 2. Type 2 diabetes mellitus. 3. Hypertension. PLAN: Continue current antiplatelet therapy and physical therapy and patient is awaiting discharge t o subacute rehabilitation. [facility] Lalit Ledesma MD cc: [phone] TT: 02/17/2017 13:29:29 Confirmation # [id number] Dictation # [id number] sn
--- NOTE | 2017-02-17 16:39 | CP.PCM.PN ---
Subjective - Date & Time of Evaluation Date of Evaluation: 02/17/17 Time of Evaluation: 16:39 - Subjective Subjective: Alert, awake, denies sob or chest pains. Objective - Vital Signs/Intake and Output Vital Signs (last 24 hours): Temp Pulse Resp BP Pulse Ox 98.2 F 80 20 138/82 92 L 02/17/17 07:00 02/17/17 07:00 02/17/17 07:00 02/17/17 07:00 02/17/17 07:00 Intake and Output: 02/17/17 02/17/17 06:59 18:59 Intake Total 600 Output Total 600 Balance 0 - Medications Medications: Current Medications Amlodipine Besylate (Norvasc) 5 mg PO DAILY [facility] Last Admin: 02/17/17 11:00 Dose: 5 mg Aspirin (Ecotrin) 81 mg PO DAILY [facility] Last Admin: 02/17/17 11:00 Dose: 81 mg Bisoprolol Fumarate/HCTZ (Ziac 5-6.25 Mg) 1 tab PO DAILY [facility] Last Admin: 02/17/17 11:00 Dose: 1 tab Cilostazol (Pletal) 50 mg PO BID [facility] Last Admin: 02/17/17 11:00 Dose: 50 mg Clopidogrel Bisulfate (Plavix) 75 mg PO DAILY [facility] Last Admin: 02/17/17 11:00 Dose: 75 mg Docusate Sodium (Colace) 100 mg PO BID [facility] Last Admin: 02/17/17 11:00 Dose: 100 mg Glipizide (Glucotrol) 10 mg PO BID [facility] Last Admin: 02/17/17 11:00 Dose: 10 mg Insulin Human Regular (Novolin R) 0 unit SC ACHS [facility] PRN Reason: Protocol Last Admin: 02/17/17 12:30 Dose: 3 unit Metformin HCl (Glucophage) 500 mg PO BIDBS [facility] Last Admin: 02/15/17 18:23 Dose: Not Given Oxycodone/Acetaminophen (Percocet 5/325 Mg Tab) 1 tab PO Q4H PRN PRN Reason: pain Stop: 02/19/17 15:51 Last Admin: 02/17/17 11:49 Dose: 1 tab Pantoprazole Sodium (Protonix Ec Tab) 40 mg PO DAILY [facility] Last Admin: 02/17/17 11:00 Dose: 40 mg Potassium Chloride (K-Dur 20 Meq Er Tab) 20 meq PO DAILY [facility] Last Admin: 02/17/17 11:00 Dose: 20 meq Rosuvastatin Calcium (Crestor) 5 mg PO HS [facility] Last Admin: 02/16/17 21:47 Dose: 5 mg - Labs Labs: 02/16/17 06:41 02/16/17 06:36 PT 10.9 SECONDS (9.7-12.2) 02/11/17 07:10 INR 1.0 02/11/17 07:10 APTT 28 SECONDS (21-34) 02/11/17 07:10 Assessment and Plan - Assessment and Plan (Free Text) Assessment: Patient is seen and examined, alert, awake, NAD. Discharge to [facility] with present meds for physical therapy as per DR Ledesma. Patient verbalized understanding.
--- NOTE | 2017-03-16 19:29 | DS ---
This is a late entry for discharge summary done on 02/17/2017. REASON FOR ADMISSION: This is a 72-year-old -[place] Citizen female with history of severe periphera l vascular disease that developed gangrenous changes in the right foot. COURSE OF HOSPITALIZATION: The patient was admitted to medical floor and she was evaluated by Dr. Sorto. The patient underwent a fem-fem bypass procedure. The patient tolerated the procedure well and she was discharged to transitional care unit for rehabilitation. Postoperative course was uneven tful. FINAL DIAGNOSES: 1. Severe peripheral vascular disease. 2. Smoker. 3. Type 2 diabetes mellitus. 4. Hypertension. 5. Status post left fem-fem bypass surgery. Kd Ledesma MD cc: [id number] TT: 03/16/2017 19:28:57 jn
== END 2017-02-17 17:45 | disposition short-term general hospital (02) | DRG 253 ==
LOC: C.ER 14:32 → C.9E 16:48 → C.3T 18:13 → C.9I 02-11 14:49 → C.5T 02-16 12:14
PROVIDERS: ADMIT Internal Medicine; ATTEND Internal Medicine
PROC: 041L0JH Bypass Left Femoral Artery to Right Femoral Artery with Synthetic Substitute, Open Approach (ICD-10-PCS; principal; 2017-02-11 11:00)
PROC: 30233N1 Transfusion of Nonautologous Red Blood Cells into Peripheral Vein, Percutaneous Approach (ICD-10-PCS; 2017-02-15)
DX: E11.52 Type 2 diabetes mellitus with diabetic peripheral angiopathy with gangrene (principal); D62 Acute posthemorrhagic anemia; J44.9 Chronic obstructive pulmonary disease, unspecified; I35.0 Nonrheumatic aortic (valve) stenosis; I10 Essential (primary) hypertension; F41.9 Anxiety disorder, unspecified; J45.909 Unspecified asthma, uncomplicated; E78.00 Pure hypercholesterolemia, unspecified; M81.0 Age-related osteoporosis without current pathological fracture; Z79.4 Long term (current) use of insulin; F17.210 Nicotine dependence, cigarettes, uncomplicated; E78.5 Hyperlipidemia, unspecified; K59.00 Constipation, unspecified

== ENCOUNTER 2017-02-28 15:22 | Inpatient (IN) | payer MEDICARE, OTHER ==
[2017-02-28 15:22] VITALS: BMI 23.3
[2017-02-28] MEDS ORDERED: Sodium Chloride 0.9% 1,000 ML IV ONE (15:44)
--- NOTE | 2017-02-28 16:15 | RAD ---
PROCEDURE: Radiographs of the chest and abdomen (obstructive series) HISTORY: abd pain COMPARISON: No recent study available. FINDINGS: Examination limited by habitus. CHEST: Cardiomegaly. Atherosclerotic calcifications. No focal consolidation, significant pleural effusion, or definite pneumothorax identified.Please note that chest x-ray has limited sensitivity for the detection of pulmonary masses. Degenerative changes of the thoracic spine and bilateral (right greater than left) shoulders. ABDOMEN AND PELVIS: Nonspecific bowel gas pattern. No dilated air-filled loops of bowel to suggest obstruction. Surgical dejan project over bilateral pelvis. No definite free air. Soft tissue attenuation limits evaluation of the abdomen/pelvis. Left-sided vascular stent. Pelvic surgical clips. Degenerative changes of the spine. IMPRESSION: Cardiomegaly. No focal consolidation, significant pleural effusion, or definite pneumothorax identified. Nonspecific bowel gas pattern. No dilated air-filled loops of bowel to suggest obstruction.
[2017-02-28] MEDS ORDERED: Sodium Chloride 0.9% 1,000 ML ONE (16:22)
--- NOTE | 2017-02-28 16:28 | C.PDOC ---
History Of Present Illness 72-year-old female, recently discharged after fem/fem bypass due to gangrene of toe and peripheral vascular disease, comes in with complaints of diffuse abdominal pain, that is associated with nausea and non-bloody/non-bilious vomiting. Patient denies fevers. She states that she has been having normal bowel movements. She was transferred from here to a rehab and was discharged home yesterday. No other complaints at this time. Of note, she is taking narcotic medication every day for her pain. She did not take any pain medication today. Time Seen by Provider: 02/28/17 15:37 Chief Complaint (Nursing): Abdominal Pain History Per: Patient History/Exam Limitations: no limitations Past Medical History Reviewed: Historical Data, Nursing Documentation, Vital Signs Vital Signs: Last Vital Signs Temp 98.1 F 02/28/17 17:23 Pulse 105 H 02/28/17 19:24 Resp 52 H 02/28/17 19:24 BP 188/80 H 02/28/17 19:24 Pulse Ox 99 02/28/17 19:24 - Medical History PMH: Anxiety, Arthritis (HANDS), Asthma, Bronchitis, COPD, Diabetes, Fractures ( RT.FOOT/CASTED NO OR), HTN, Hypercholesterolemia, Osteoporosis, Pneumonia Denies: Chronic Kidney Disease Surgical History: Endoscopy - [facility] Procedures BYPASS L FEM ART TO R FEMOR A WITH SYNTH SUB, OPEN APPROACH (02/09/17) CLOSED ENDOSCOPIC BIOPSY OF LARGE INTESTINE (07/31/15) ENDOSCOPIC CONTROL OF GASTRIC OR DUODENAL BLEEDING (07/24/15) ESOPHAGOGASTRODUODENOSCOPY [EGD] W/CLOSED BIOPSY (04/22/13) TRANSFUSE NONAUT RED BLOOD CELLS IN PERIPH VEIN, PERC (02/09/17) Family History: States: Unknown Family Hx - Social History Hx Tobacco Use: Yes (Former.) Hx Alcohol Use: No Hx Substance Use: No - Immunization History Hx Tetanus Toxoid Vaccination: No Hx Influenza Vaccination: Yes Hx Pneumococcal Vaccination: No Review Of Systems Except As Marked, All Systems Reviewed And Found Negative. Constitutional: Negative for: Fever, Chills Cardiovascular: Negative for: Chest Pain, Palpitations Respiratory: Negative for: Shortness of Breath Gastrointestinal: Positive for: Nausea, Vomiting, Abdominal Pain. Negative for : Diarrhea Musculoskeletal: Negative for: Back Pain Physical Exam - Physical Exam Appears: Non-toxic, No Acute Distress, Other (moderate distress. writhing around , w/ clear mucusy vomitus) Skin: Warm, Dry, No Rash Head: Atraumatic, Normacephalic Eye(s): bilateral: Normal Inspection, PERRL Nose: Normal Oral Mucosa: Moist Lips: Normal Appearing Neck: Normal ROM Chest: Symmetrical Cardiovascular: Rhythm Regular Respiratory: Normal Breath Sounds, No Accessory Muscle Use Gastrointestinal/Abdominal: No Bowel Sounds (quiet), Soft, Tenderness (diffuse) , No Guarding, No Rebound Neurological/Psych: Oriented x3, Normal Speech ED Course And Treatment - Laboratory Results Result Diagrams: 02/28/17 16:28 02/28/17 16:28 Lab Interpretation: Abnormal (WBC 19.5 with left shift. BUN 33 with normal Cr. andom glucose 275.) ECG: Interpreted By Me ECG Rhythm: Sinus Rhythm (with short [place] interval) ECG Interpretation: No Acute Changes O2 Sat by Pulse Oximetry: 99 Pulse Ox Interpretation: Normal - Other Rad Obstructive series X-Ray: Viewed By Me, Read By Radiologist Interpretation: No evidence of bowel obstruction, CXR with cardiomegaly. No evidence of pulmonary disease Reevaluation Time: 21:50 Reassessment Condition: Improved - Physician Consult Information Time Consulting Physician Contacted: 21:50 Physician Contacted: Kd Ledesma Outcome Of Conversation: Patient to be admitted for observation of abdominal pain and vomiting. Disposition - Disposition Disposition: HOSPITALIZED Disposition Time: 21:51 Condition: FAIR - POA Present On Arrival: None - Clinical Impression Clinical Impression: Abdominal pain, Nausea, Vomiting - Scribe Statement The provider has reviewed the documentation as recorded by the Pepe Bullock All medical record entries made by the Pepe were at my direction and personally dictated by me. I have reviewed the chart and agree that the record accurately reflects my personal performance of the history, physical exam, medical decision making, and the department course for this patient. I have also personally directed, reviewed, and agree with the discharge instructions and disposition.
[2017-02-28 16:34] LABS: BASO % 0.2 % (0.0-2.0); EOS # 0.1 K/uL (0.0-0.7); EOS % 0.3 % (0.0-4.0); HEMATOCRIT 36.9 % (34.0-47.0); LYMPH # 1.3 K/uL (1.0-4.3); LYMPH % 6.7 % (20.0-40.0); MEAN CORPUSCULAR HEMOGLOBIN 29.9 pg (27.0-31.0); MEAN CORPUSCULAR HGB CONC 32.7 g/dL (33.0-37.0); MONO # 1.7 K/uL (0.0-0.8); MONO % 8.7 % (0.0-10.0); NRBC % 0.5 % (0.0-2.0)
[2017-02-28 16:36] LABS: MEAN CELL VOLUME 91.4 fL (81.0-99.0); PLATELET COUNT 433 K/uL (130-400); WHITE BLOOD COUNT 19.5 K/uL (4.8-10.8)
[2017-02-28 16:42] LABS: CHLORIDE 97 mmol/L (98-107); POTASSIUM 3.5 mmol/L (3.6-5.2); SODIUM 139 mmol/L (132-148)
[2017-02-28 16:44] LABS: AST/SGOT 25 U/L (14-36); BILIRUBIN,TOTAL 0.8 mg/dL (0.2-1.3); CARBON DIOXIDE 25 mmol/L (22-30); GFR AFRICAN-AMERICAN > 60
[2017-02-28 16:45] LABS: ALB/GLOB RATIO 1.2 (1.0-2.1); ALKALINE PHOSPHATASE 91 U/L (38-126); ALT/SGPT 21 U/L (9-52); BLOOD UREA NITROGEN 33 mg/dL (7-17); CALCIUM 10.9 mg/dl (8.6-10.4); GLUCOSE,RANDOM 275 mg/dL (65-105); TOTAL PROTEIN 8.3 g/dL (6.3-8.3)
[2017-02-28 17:05] LABS: EOSINOPHIL 1 % (0-4); NEUTROPHIL 88 % (50-75); TOTAL CELLS COUNTED 100
[2017-02-28 17:06] LABS: LARGE PLATELETS PRESENT
[2017-02-28] MEDS ORDERED: Iohexol 240 (50 ml) ONE (18:07)
[2017-02-28] MEDS ORDERED: Iodixanol 320 MG/ML 100 ML BOTTLE IV ONE (20:01)
--- NOTE | 2017-02-28 21:38 | CT ---
EXAM: CT Abdomen and Pelvis With Intravenous Contrast CLINICAL HISTORY: 72 years old, female; Pain; Abdominal pain; Generalized; Additional info: Abdominal pain injection stopped after about 70ml right wrist started to infiltrate TECHNIQUE: Axial computed tomography images of the abdomen and pelvis with intravenous contrast. This CT exam was performed using one or more of the following dose reduction techniques: automated exposure control, adjustment of the mA and/or kV according to patient size, and/or use of iterative reconstruction technique. Coronal and sagittal reformatted images were created and reviewed. CONTRAST: 70 mL of VISIPAQUE administered intravenously. EXAM DATE/TIME: Exam ordered 02/28/2017 5:44 PM COMPARISON: CT - ANGIOGRAPHY ABD ILEOFEM RUNOFF 10/30/2016 1:09:09 PM FINDINGS: Lower thorax: There is a small hiatal hernia. ABDOMEN: Liver: Unremarkable. No mass. Gallbladder and bile ducts: Unremarkable. No calcified stones. No ductal dilation. Pancreas: Unremarkable. No mass. No ductal dilation. Spleen: There is a low density mass containing calcifications noted within the spleen. The mass measures 3 x 2.7 x 2.8 cm. Surgical clips are noted in the region of the sigmoid colon. Adrenals: There is adreniform enlargement of the adrenal glands bilaterally. Kidneys and ureters: Ostial ossification is noted at the origin of the celiac axis, superior mesenteric artery and the renal arteries bilaterally. No hydronephrosis. Stomach and bowel: There are sigmoid colonic diverticula.. Appendix: No findings to suggest acute appendicitis. PELVIS: Bladder: Unremarkable. No mass. Reproductive: Unremarkable as visualized. ABDOMEN and PELVIS: Intraperitoneal space: Unremarkable. No free air. No significant fluid collection. Bones/joints: Degenerative changes are noted of the hip joints bilaterally with mild joint space narrowing. There is a grade 1 spondylolisthesis at L4-5 with 5 mm of retrolisthesis of L5 with respect to L4. There is narrowing of the intervening disc space. Facet arthropathy is noted in the mid and lower lumbar spine. No acute fracture. No dislocation. Soft tissues: Fluid collection is noted in the right groin at the level of the femoral anastomosis. It measures 2.6 cm 3.8 x 3.2 x 5 cm. Surgical clips are noted in the left and right groin. Granulomas are noted within the soft tissues of the buttocks bilaterally. Vasculature: A fem-fem arterial bypass is noted in the lower abdomen. It fills with contrast indicating patency Lymph nodes: Unremarkable. No enlarged lymph nodes. IMPRESSION: 1. Fluid collection in the right groin at the level of the femoral anastomosis. This could represent a hematoma/seroma. The graft is patent 2. Splenic lesion which appears slightly larger when compared to the report from the previous study. The images are not available. This is likely a hemangioma. This impression could be confirmed with an MRI. 3. Colonic diverticulosis. 4. The adreniform enlargement of the adrenal glands bilaterally. No focal mass.
[2017-03-01] MEDS: Sodium Chloride 0.9% 1,000 ML IV SCH ×4 (01:15→21:14)
[2017-03-01 06:56] LABS: RBC URINE 13 /hpf (0-3); URINE BACTERIA RARE (<OCC); URINE BILIRUBIN NEGATIVE (NEGATIVE); URINE BLOOD 1+ (NEGATIVE); URINE COLOR Straw (YELLOW); URINE GLUCOSE (UA) 3+ mg/dL (Normal); URINE KETONE TRACE mg/dL (NEGATIVE); URINE LEUKOCYTE ESTERASE NEG Leu/uL (Negative); URINE PROTEIN 2+ mg/dL (NEGATIVE); URINE UROBILINOGEN NORMAL mg/dL (0.2-1.0); WBC URINE 2 /hpf (0-5)
[2017-03-01] MEDS: (Novolog) Insulin Aspart, Recombinant 100 u/ml 10 ml vial SC SCH ×4 (08:00→21:15)
[2017-03-01] MEDS: Fluticasone-Salmeterol 250-50mcg Diskus INH SCH ×2 (08:40→20:16)
[2017-03-01] MEDS ORDERED: ALENDRONATE PO SCH (10:00)
[2017-03-01] MEDS: Cilostazol 50 mg Tab UD PO SCH ×2 (10:00→17:25)
[2017-03-01] MEDS: Bisoprolol-HCTZ 5-6.25 mg Tab PO SCH (10:09)
--- NOTE | 2017-03-01 11:04 | CP.PCM.CON ---
History of Present Illness - History of Present Illness History of Present Illness: General Surgery - Dr. Rankin 72yo F w/ DM, HTN, PVD s/p Fem-Fem bypass on 02/11, recently discharged from TCU on 02/27 and returned to ED yesterday w/ abdominal pain and vomiting x1. Pt currently denies any abdominal pain and states that she "just doesn't feel well ". She had mild pain in the suprapubic region yesterday but she states it has resolved. She admits to nausea and had 1 episode of vomiting yesterday, NB/NB. She denies any diarrhea, Fevers/Chills, constipation, pain in the groin. Pt had CT abd/pelvis done which showed a fluid collection in the R groin at the level of the femoral anastomosis, which could be hematoma or seroma, patent graft. Surgery was consulted for abdominal pain. PMH: DM, HTN, PVD PSH: Colectomy, Hysterectomy, breast mass removal, Fem-Fem Bypass on 02/11 SH: Former smoker, no EtOH, No drug use All: PCN, Sulfa Meds: See MAR, on ASA and plavix Review of Systems - Review of Systems All systems: reviewed and no additional remarkable complaints except (as per HPI ) Past Patient History - Infectious Disease Hx of Infectious Diseases: None - Past Medical History & Family History Past Medical History?: Yes - Past Social History Smoking Status: Former Smoker - CARDIAC Hx Cardiac Disorders: Yes Hx Hypercholesterolemia: Yes Hx Hypertension: Yes - PULMONARY Hx Respiratory Disorders: Yes Hx Asthma: Yes Hx Bronchitis: Yes Hx Chronic Obstructive Pulmonary Disease (COPD): Yes Hx Pneumonia: Yes - NEUROLOGICAL Hx Neurological Disorder: No - HEENT Hx HEENT Problems: No - RENAL Hx Chronic Kidney Disease: No - ENDOCRINE/METABOLIC Hx Endocrine Disorders: Yes Hx Diabetes Mellitus Type 2: Yes - HEMATOLOGICAL/ONCOLOGICAL Hx Blood Disorders: No - INTEGUMENTARY Hx Dermatological Problems: No - MUSCULOSKELETAL/RHEUMATOLOGICAL Hx Musculoskeletal Disorders: Yes Hx Arthritis: Yes (HANDS) Hx Falls: Yes Hx Fractures: Yes (RT.FOOT/CASTED NO OR) Hx Osteoporosis: Yes - GASTROINTESTINAL Hx Gastrointestinal Disorders: Yes Hx Bowel Surgery: Yes (COLON RESECTION FOR OBSTRUCTION?) Hx Gastroesophageal Reflux: Yes Other/Comment: HX.OBSTRUCTION HAD BOWEL RESECTION - GENITOURINARY/GYNECOLOGICAL Hx Genitourinary Disorders: No - PSYCHIATRIC Hx Psychophysiologic Disorder: Yes Hx Anxiety: Yes Hx Substance Use: No - SURGICAL HISTORY Hx Surgeries: Yes Hx Angiogram: Yes (Stenting left leg) Hx Breast Biopsy: Yes (RT.) Hx Herniorrhaphy: Yes (UMBILICAL) Hx Hysterectomy: Yes (RYANN) Hx Orthopedic Surgery: Yes (OMAR. BUNIONECTOMY) Hx Tubal Ligation: Yes - ANESTHESIA Hx Anesthesia: Yes Hx Anesthesia Reactions: No Hx Malignant Hyperthermia: No Meds Allergies/Adverse Reactions: Allergies Allergy/AdvReac Type Severity Reaction Status Date / Time Penicillins Allergy SWELLING Verified 02/28/17 15:37 Sulfa (Sulfonamide Allergy RASH Verified 02/28/17 15:37 Antibiotics) tomato AdvReac GI UPSET Verified 02/28/17 15:37 - Medications Medications: Current Medications Alprazolam (Xanax) 0.25 mg PO DAILY PRN PRN Reason: Anxiety Stop: 03/08/17 01:29 Last Admin: 03/01/17 08:08 Dose: 0.25 mg Amlodipine Besylate (Norvasc) 5 mg PO DAILY [facility] Last Admin: 03/01/17 10:07 Dose: 5 mg Aspirin (Ecotrin) 81 mg PO DAILY [facility] Last Admin: 03/01/17 10:09 Dose: 81 mg Bisoprolol Fumarate/HCTZ (Ziac 5-6.25 Mg) 1 tab PO DAILY [facility] Last Admin: 03/01/17 10:09 Dose: 1 tab Cilostazol (Pletal) 50 mg PO BID [facility] Clopidogrel Bisulfate (Plavix) 75 mg PO DAILY [facility] Last Admin: 03/01/17 10:09 Dose: 75 mg Glipizide (Glucotrol) 10 mg PO BID [facility] Last Admin: 03/01/17 10:09 Dose: 10 mg Home Med (Alendronate [Fosamax]) 1 tab PO QWK [facility] Sodium Chloride (Sodium Chloride 0.9%) 1,000 mls @ 100 mls/hr IV .Q10H [facility] Last Admin: 03/01/17 10:28 Dose: 100 mls/hr Insulin Aspart (Novolog) 0 unit SC ACHS [facility] PRN Reason: Protocol Last Admin: 03/01/17 08:00 Dose: Not Given Metformin HCl (Glucophage) 500 mg PO BID [facility] Last Admin: 03/01/17 10:14 Dose: Not Given Metoclopramide HCl (Reglan) 10 mg IVP Q8H PRN PRN Reason: Nausea/Vomiting Last Admin: 03/01/17 10:09 Dose: 10 mg Ondansetron HCl (Zofran Inj) 4 mg IVP Q4H PRN PRN Reason: Nausea/Vomiting Last Admin: 03/01/17 06:15 Dose: 4 mg Pantoprazole Sodium (Protonix Inj) 40 mg IVP DAILY [facility] Last Admin: 03/01/17 10:10 Dose: 40 mg Pneumococcal Polyvalent Vaccine (Pneumovax 23 Vaccine) 0.5 ml IM .ONCE ONE Stop: 03/02/17 10:01 Rosuvastatin Calcium (Crestor) 5 mg PO HS [facility] Fluticasone/Salmeterol (Advair Diskus 250/50) 1 puff INH RQ12 [facility] Last Admin: 03/01/17 08:40 Dose: Not Given Physical Exam - Constitutional Appears: Well, No Acute Distress - Head Exam Head Exam: NORMAL INSPECTION, NORMOCEPHALIC - Eye Exam Eye Exam: Normal appearance - Respiratory Exam Respiratory Exam: NORMAL BREATHING PATTERN. absent: Respiratory Distress - GI/Abdominal Exam GI & Abdominal Exam: Soft, Tenderness (ttp over suprapubic area of graft, good pulses in graft and Femoral vessels b/l). absent: Distended, Guarding, Rebound , Rigid - Neurological Exam Neurological exam: Alert, Oriented x3 - Psychiatric Exam Psychiatric exam: Normal Affect, Normal Mood - Skin Skin Exam: Dry, Intact Additional comments: No erythema, induration, or fluctuance over groin site Results - Vital Signs Recent Vital Signs: Last Vital Signs Temp 97.5 F L 03/01/17 09:08 Pulse 112 H 03/01/17 09:08 Resp 20 03/01/17 09:08 BP 177/71 H 03/01/17 09:08 Pulse Ox 96 03/01/17 09:08 - Labs Result Diagrams: 02/28/17 16:28 02/28/17 16:28 Labs: Laboratory Results - last 24 hr 03/01/17 03/01/17 06:46 07:20 POC Glucose (mg/dL) 312 H Urine Color Straw Urine Clarity Clear Urine pH 7.0 Ur Specific [place] 1.017 Urine Protein 2+ H Urine Glucose (UA) 3+ H Urine Ketones Trace Urine Blood 1+ H Urine Nitrate Negative Urine Bilirubin Negative Urine Urobilinogen Normal Ur Leukocyte Esterase Neg Urine WBC (Auto) 2 Urine RBC (Auto) 13 H Ur Squamous Epith Cells < 1 Urine Bacteria Rare Assessment & Plan - Assessment and Plan (Free Text) Assessment: 72 yo F w/ DM, HTN, PVD s/p Fem-Fem bypass 02/11, re-admitted with abdominal pain and vomiting -CT reviewed, poss. seroma v. hematoma -Labs w/ Leukocytosis -No signs of surgical site infection on physical exam -Symptoms may be related to enteritis -Would maintain liquid diet for now -Consider Abx/ID -No acute surgical plans DW Dr Chucho Caal PGY2
--- NOTE | 2017-03-01 12:49 | CP.PCM.PN ---
Subjective - Date & Time of Evaluation Date of Evaluation: 03/01/17 Time of Evaluation: 12:48 - Subjective Subjective: finfings noted clinically stable wlevated wbc noted graft patent Objective - Vital Signs/Intake and Output Vital Signs (last 24 hours): Temp Pulse Resp BP Pulse Ox 97.5 F L 112 H 20 177/71 H 96 03/01/17 09:08 03/01/17 09:08 03/01/17 09:08 03/01/17 09:08 03/01/17 09:08 Intake and Output: 03/01/17 03/01/17 06:59 18:59 Intake Total 640 Balance 640 - Medications Medications: Current Medications Alprazolam (Xanax) 0.25 mg PO DAILY PRN PRN Reason: Anxiety Stop: 03/08/17 01:29 Last Admin: 03/01/17 08:08 Dose: 0.25 mg Amlodipine Besylate (Norvasc) 5 mg PO DAILY [facility] Last Admin: 03/01/17 10:07 Dose: 5 mg Aspirin (Ecotrin) 81 mg PO DAILY [facility] Last Admin: 03/01/17 10:09 Dose: 81 mg Bisoprolol Fumarate/HCTZ (Ziac 5-6.25 Mg) 1 tab PO DAILY [facility] Last Admin: 03/01/17 10:09 Dose: 1 tab Cilostazol (Pletal) 50 mg PO BID [facility] Clopidogrel Bisulfate (Plavix) 75 mg PO DAILY [facility] Last Admin: 03/01/17 10:09 Dose: 75 mg Glipizide (Glucotrol) 10 mg PO BID [facility] Last Admin: 03/01/17 10:09 Dose: 10 mg Home Med (Alendronate [Fosamax]) 1 tab PO QWK [facility] Sodium Chloride (Sodium Chloride 0.9%) 1,000 mls @ 100 mls/hr IV .Q10H [facility] Last Admin: 03/01/17 12:25 Dose: Not Given Insulin Aspart (Novolog) 0 unit SC ACHS [facility] PRN Reason: Protocol Last Admin: 03/01/17 08:00 Dose: Not Given Metformin HCl (Glucophage) 500 mg PO BID [facility] Last Admin: 03/01/17 10:14 Dose: Not Given Metoclopramide HCl (Reglan) 10 mg IVP Q8H PRN PRN Reason: Nausea/Vomiting Last Admin: 03/01/17 10:09 Dose: 10 mg Ondansetron HCl (Zofran Inj) 4 mg IVP Q4H PRN PRN Reason: Nausea/Vomiting Last Admin: 03/01/17 06:15 Dose: 4 mg Pantoprazole Sodium (Protonix Inj) 40 mg IVP DAILY [facility] Last Admin: 03/01/17 10:10 Dose: 40 mg Pneumococcal Polyvalent Vaccine (Pneumovax 23 Vaccine) 0.5 ml IM .ONCE ONE Stop: 03/02/17 10:01 Rosuvastatin Calcium (Crestor) 5 mg PO HS [facility] Fluticasone/Salmeterol (Advair Diskus 250/50) 1 puff INH RQ12 [facility] Last Admin: 03/01/17 08:40 Dose: Not Given
[2017-03-02] MEDS: Sodium Chloride 0.9% 1,000 ML IV SCH ×2 (05:49→07:39)
--- NOTE | 2017-03-02 07:56 | CP.PCM.PN ---
Subjective - Date & Time of Evaluation Date of Evaluation: 03/02/17 Time of Evaluation: 07:54 - Subjective Subjective: Surgery: Dr. Rankin Patient complains of nausea and vomiting last night. She describes the emesis at clear mucous like. She reports flatus but denies bowel movement since Thursday. She states that on Thursday she had to be given a suppository to have a bowel movement. She denies pain to the site of the bypass graft in the suprapubic area. She states she has no pain in either of her legs. Objective - Vital Signs/Intake and Output Vital Signs (last 24 hours): Temp Pulse Resp BP Pulse Ox 98.0 F 85 20 159/70 H 95 03/02/17 07:50 03/02/17 07:50 03/02/17 07:50 03/02/17 07:50 03/02/17 07:50 Intake and Output: 03/02/17 03/02/17 06:59 18:59 Intake Total 1050 Balance 1050 - Medications Medications: Current Medications Alprazolam (Xanax) 0.25 mg PO DAILY PRN PRN Reason: Anxiety Stop: 03/08/17 01:29 Last Admin: 03/01/17 08:08 Dose: 0.25 mg Amlodipine Besylate (Norvasc) 5 mg PO DAILY [facility] Last Admin: 03/01/17 10:07 Dose: 5 mg Aspirin (Ecotrin) 81 mg PO DAILY [facility] Last Admin: 03/01/17 10:09 Dose: 81 mg Bisoprolol Fumarate/HCTZ (Ziac 5-6.25 Mg) 1 tab PO DAILY [facility] Last Admin: 03/01/17 10:09 Dose: 1 tab Cilostazol (Pletal) 50 mg PO BID [facility] Last Admin: 03/01/17 17:25 Dose: 50 mg Clopidogrel Bisulfate (Plavix) 75 mg PO DAILY [facility] Last Admin: 03/01/17 10:09 Dose: 75 mg Glipizide (Glucotrol) 10 mg PO BID [facility] Last Admin: 03/01/17 17:25 Dose: 10 mg Home Med (Alendronate [Fosamax]) 1 tab PO QWK [facility] Sodium Chloride (Sodium Chloride 0.9%) 1,000 mls @ 100 mls/hr IV .Q10H [facility] Last Admin: 03/02/17 07:39 Dose: Not Given Insulin Aspart (Novolog) 0 unit SC ACHS [facility] PRN Reason: Protocol Last Admin: 03/01/17 21:15 Dose: Not Given Metformin HCl (Glucophage) 500 mg PO BID [facility] Last Admin: 03/01/17 10:14 Dose: Not Given Metoclopramide HCl (Reglan) 10 mg IVP Q8H PRN PRN Reason: Nausea/Vomiting Last Admin: 03/01/17 10:09 Dose: 10 mg Ondansetron HCl (Zofran Inj) 4 mg IVP Q4H PRN PRN Reason: Nausea/Vomiting Last Admin: 03/02/17 01:20 Dose: 4 mg Pantoprazole Sodium (Protonix Inj) 40 mg IVP DAILY [facility] Last Admin: 03/01/17 10:10 Dose: 40 mg Pneumococcal Polyvalent Vaccine (Pneumovax 23 Vaccine) 0.5 ml IM .ONCE ONE Stop: 03/02/17 10:01 Rosuvastatin Calcium (Crestor) 5 mg PO HS [facility] Last Admin: 03/01/17 21:14 Dose: 5 mg Fluticasone/Salmeterol (Advair Diskus 250/50) 1 puff INH RQ12 [facility] Last Admin: 03/01/17 20:16 Dose: Not Given - Constitutional Appears: Chronically Ill - Head Exam Head Exam: ATRAUMATIC, NORMOCEPHALIC - Eye Exam Eye Exam: EOMI, Normal appearance - ENT Exam ENT Exam: Mucous Membranes Moist - Respiratory Exam Respiratory Exam: NORMAL BREATHING PATTERN. absent: Respiratory Distress - Cardiovascular Exam Cardiovascular Exam: absent: Tachycardia - GI/Abdominal Exam GI & Abdominal Exam: Soft, Tenderness (mild epigastric pain ). absent: Distended, Guarding, Rigid Additional comments: fem-fem graft patent, strong pulse palpated. Nontender to palpation. No evidence of redness or swelling around graft. - Extremities Exam Extremities Exam: absent: Calf Tenderness Additional comments: bilateral groin incisions are clean dry and intact w/ staple closure, no evidence of eythema or drainage. Healing appropriately. Bilateral LE are warm to touch. nontender. - Neurological Exam Neurological Exam: Alert, Awake - Skin Skin Exam: Dry, Normal Color, Warm Assessment and Plan - Assessment and Plan (Free Text) Assessment: 72 y/o female w/ nausea/vomting and abdominal pain, most likely enteritis vs constipation Plan: -fem-fem graft patent -surgical incisions healing well -would recommend to cont liquid diet as tolerated -cont GI prophylaxis -may need suppository for constipation -consider abx, WBC 19 -f/u am labs -if persistent, may need GI eval -further recs per Dr. Rankin, will discuss further plan with him AKWhite PGY1
[2017-03-02] MEDS: (Novolog) Insulin Aspart, Recombinant 100 u/ml 10 ml vial SC SCH ×4 (08:32→22:00)
[2017-03-02] MEDS: Fluticasone-Salmeterol 250-50mcg Diskus INH SCH ×2 (09:08→19:36)
[2017-03-02] MEDS: Bisoprolol-HCTZ 5-6.25 mg Tab PO SCH (09:26)
[2017-03-02] MEDS ORDERED: Pneumococcal 23-Valent Vaccine IM ONE (10:00)
[2017-03-02] MEDS: Cilostazol 50 mg Tab UD PO SCH ×2 (10:41→19:10)
[2017-03-02] MEDS ORDERED: Sodium Chloride 0.9% 250 ML IV ONE (11:57)
--- NOTE | 2017-03-02 12:08 | CP.PCM.CON ---
History of Present Illness - History of Present Illness History of Present Illness: Asked by Dr. Ledesma for a GI consultation on this patient. 72 year old female with history of DM, HTN, COPD, diverticulitis s/p partial colon resection, PVD on plavix s/p fem-fem bypass last month who presents to hospital with complaint of abdominal pain and vomiting. She claims that she has been having recurrent vomiting with mucous material for the past several weeks which got worse following her hospital discharge a few days ago. She was in TCU receiving rehabilitation from her recent vascular surgery. She previously described mid epigastric abdominal pain which has since resolved though her nausea and vomiting persist. She claims symptoms are worse following both solids and liquids. She denies odynophagia, fever/chills, diarrhea, or weight loss. She is typically constipated and has not had a bowel movement in past 2 days. She had an EGD/colonoscopy in August 2015 which showed diverticulosis, surgical anastomosis, internal hemorrhoids, gastric AVM, hiatal hernia, ?distal esophageal narrowing. Social history: recently quit smoking 1 month ago, no ETOH use Family history: reviewed, patient denies Review of Systems - Review of Systems Review of Systems: - All other comprehensive 12 point review of systems performed, negative - Constitutional Constitutional: Fatigue, Lethargy - Cardiovascular Cardiovascular: absent: Acrocyanosis, Chest Pain, Chest Pain at Rest, Chest Pain with Activity, Claudication, Diaphoresis, Dyspnea, Dyspnea on Exertion, Edema, Irregular Heart Rhythm, Pain Radiating to Arm/Neck/Jaw, Leg Edema, Leg Ulcers, Lightheadedness, Orthopnea, Palpitations, Paroxysmal Nocturnal Dyspnea, Pedal Edema, Radiating Pain, Rapid Heart Rate, Slow Heart Rate, Syncope, Other - Respiratory Respiratory: absent: Cough, Dyspnea, Hemoptysis, Dyspnea on Exertion, Wheezing, Snoring, Stridor, Pain on Inspiration, Chest Congestion, Excessive Mucous Production, Change in Mucous Color, Pain with Coughing, Other - Gastrointestinal Gastrointestinal: Nausea, Vomiting - Musculoskeletal Musculoskeletal: absent: Abnormal Gait, Arthralgias, Atrophy, Back Pain, Deformity, Joint Swelling, Limited Range of Motion, Loss of Height, Muscle Cramps, Muscle Weakness, Myalgias, Neck Pain, Numbness, Radiating Pain into Limb , Stiffness, Tingling, Other - Neurological Neurological: absent: Abnormal Gait, Abnormal Hearing, Abnormal Movements, Abnormal Speech, Behavioral Changes, Burning Sensations, Confusion, Convulsions , Disequilibrium, Dizziness, Numbness, Focal Weakness, Frequent Falls, Headaches , Lack of Coordination, Loss of Vision, Memory Loss, Paresthesias, Radicular Pain, Restless Legs, Sensory Deficit, Syncope, Tingling, Tremor, Vertigo, Weakness, Other Visual Disturbances, Other Past Patient History - Infectious Disease Hx of Infectious Diseases: None - Past Medical History & Family History Past Medical History?: Yes - Past Social History Smoking Status: Former Smoker - CARDIAC Hx Cardiac Disorders: Yes Hx Hypercholesterolemia: Yes Hx Hypertension: Yes - PULMONARY Hx Respiratory Disorders: Yes Hx Asthma: Yes Hx Bronchitis: Yes Hx Chronic Obstructive Pulmonary Disease (COPD): Yes Hx Pneumonia: Yes - NEUROLOGICAL Hx Neurological Disorder: No - HEENT Hx HEENT Problems: No - RENAL Hx Chronic Kidney Disease: No - ENDOCRINE/METABOLIC Hx Endocrine Disorders: Yes Hx Diabetes Mellitus Type 2: Yes - HEMATOLOGICAL/ONCOLOGICAL Hx Blood Disorders: No - INTEGUMENTARY Hx Dermatological Problems: No - MUSCULOSKELETAL/RHEUMATOLOGICAL Hx Musculoskeletal Disorders: Yes Hx Arthritis: Yes (HANDS) Hx Falls: Yes Hx Fractures: Yes (RT.FOOT/CASTED NO OR) Hx Osteoporosis: Yes - GASTROINTESTINAL Hx Gastrointestinal Disorders: Yes Hx Bowel Surgery: Yes (COLON RESECTION FOR OBSTRUCTION?) Hx Gastroesophageal Reflux: Yes Other/Comment: HX.OBSTRUCTION HAD BOWEL RESECTION - GENITOURINARY/GYNECOLOGICAL Hx Genitourinary Disorders: No - PSYCHIATRIC Hx Psychophysiologic Disorder: Yes Hx Anxiety: Yes Hx Substance Use: No - SURGICAL HISTORY Hx Surgeries: Yes Hx Angiogram: Yes (Stenting left leg) Hx Breast Biopsy: Yes (RT.) Hx Herniorrhaphy: Yes (UMBILICAL) Hx Hysterectomy: Yes (RYANN) Hx Orthopedic Surgery: Yes (OMAR. BUNIONECTOMY) Hx Tubal Ligation: Yes - ANESTHESIA Hx Anesthesia: Yes Hx Anesthesia Reactions: No Hx Malignant Hyperthermia: No Meds Allergies/Adverse Reactions: Allergies Allergy/AdvReac Type Severity Reaction Status Date / Time Penicillins Allergy SWELLING Verified 02/28/17 15:37 Sulfa (Sulfonamide Allergy RASH Verified 02/28/17 15:37 Antibiotics) tomato AdvReac GI UPSET Verified 02/28/17 15:37 - Medications Medications: Current Medications Alprazolam (Xanax) 0.25 mg PO DAILY PRN PRN Reason: Anxiety Stop: 03/08/17 01:29 Last Admin: 03/02/17 09:10 Dose: 0.25 mg Amlodipine Besylate (Norvasc) 5 mg PO DAILY [facility] Last Admin: 03/02/17 09:09 Dose: 5 mg Aspirin (Ecotrin) 81 mg PO DAILY [facility] Last Admin: 03/02/17 09:09 Dose: 81 mg Bisoprolol Fumarate/HCTZ (Ziac 5-6.25 Mg) 1 tab PO DAILY [facility] Last Admin: 03/02/17 09:26 Dose: 1 tab Cilostazol (Pletal) 50 mg PO BID [facility] Last Admin: 03/02/17 10:41 Dose: 50 mg Clopidogrel Bisulfate (Plavix) 75 mg PO DAILY [facility] Last Admin: 03/02/17 09:10 Dose: 75 mg Glipizide (Glucotrol) 10 mg PO BID [facility] Last Admin: 03/02/17 09:09 Dose: 10 mg Home Med (Alendronate [Fosamax]) 1 tab PO QWK [facility] Sodium Chloride (Sodium Chloride 0.9%) 1,000 mls @ 100 mls/hr IV .Q10H [facility] Last Admin: 03/02/17 07:39 Dose: Not Given Insulin Aspart (Novolog) 0 unit SC ACHS [facility] PRN Reason: Protocol Last Admin: 03/02/17 08:32 Dose: 1 unit Metformin HCl (Glucophage) 500 mg PO BID [facility] Last Admin: 03/01/17 10:14 Dose: Not Given Metoclopramide HCl (Reglan) 10 mg IVP Q8H PRN PRN Reason: Nausea/Vomiting Last Admin: 03/02/17 11:03 Dose: 10 mg Ondansetron HCl (Zofran Inj) 4 mg IVP Q6 PRN PRN Reason: Nausea/Vomiting Pantoprazole Sodium (Protonix Inj) 40 mg IVP DAILY [facility] Last Admin: 03/02/17 09:10 Dose: 40 mg Rosuvastatin Calcium (Crestor) 5 mg PO HS [facility] Last Admin: 03/01/17 21:14 Dose: 5 mg Fluticasone/Salmeterol (Advair Diskus 250/50) 1 puff INH RQ12 [facility] Last Admin: 03/02/17 09:08 Dose: Not Given Physical Exam - Constitutional Appears: Non-toxic, No Acute Distress - Head Exam Head Exam: NORMAL INSPECTION - Eye Exam Eye Exam: EOMI, Normal appearance - ENT Exam ENT Exam: Mucous Membranes Moist - Respiratory Exam Respiratory Exam: Clear to Auscultation Bilateral - Cardiovascular Exam Cardiovascular Exam: REGULAR RHYTHM, +S1, +S2 - GI/Abdominal Exam GI & Abdominal Exam: Normal Bowel Sounds, Soft Additional comments: non tender to palpation in four quadrants no palpable hepato/splenomegaly large midline surgical scar present right and left inguinal surgical sites with dejan intact - Extremities Exam Extremities exam: Positive for: normal inspection - Neurological Exam Neurological exam: Alert, CN II-XII Intact, Oriented x3, Reflexes Normal - Psychiatric Exam Psychiatric exam: Normal Affect, Normal Mood - Skin Skin Exam: Dry, Intact, Normal Color, Warm Results - Vital Signs Recent Vital Signs: Last Vital Signs Temp 98.0 F 03/02/17 07:50 Pulse 85 03/02/17 07:50 Resp 20 03/02/17 07:50 BP 159/70 H 03/02/17 07:50 Pulse Ox 95 03/02/17 07:50 - Labs Result Diagrams: 02/28/17 16:28 02/28/17 16:28 Labs: Laboratory Results - last 24 hr 03/01/17 03/01/17 03/02/17 16:24 21:09 07:03 POC Glucose (mg/dL) 318 H 152 H 166 H 03/02/17 11:13 POC Glucose (mg/dL) 230 H Assessment & Plan - Assessment and Plan (Free Text) Assessment: DM HTN COPD PVD s/p fem-fem bypass on plavix Nausea, vomiting - ?distal esophageal narrowing seen on EGD in 2014 CT imaging reviewed by me showing no signs of obstructive pathology, RLQ fluid collection at site of bypass, possible seroma Leukocytosis Plan: - Liquid diet as tolerated - Anti-emetic therapy PRN - Continue with PPI therapy - Repeat bloodwork (CBC, CMP) - Follow up vascular surgical recommendations given R groin fluid collection - Obtain esophagram given prior endoscopic abnormality seen in 2015 and patient with persistent vomiting - Pending results, patient may benefit from repeat EGD. Will continue to monitor patient clinical course.
[2017-03-02 12:58] LABS: BASO % 0.1 % (0.0-2.0); EOS % 0.2 % (0.0-4.0); HEMATOCRIT 34.9 % (34.0-47.0); LYMPH # 1.4 K/uL (1.0-4.3); LYMPH % 7.8 % (20.0-40.0); MEAN CELL VOLUME 89.7 fL (81.0-99.0); MEAN CORPUSCULAR HEMOGLOBIN 29.9 pg (27.0-31.0); MEAN CORPUSCULAR HGB CONC 33.3 g/dL (33.0-37.0); MEAN PLATELET VOLUME 8.5 fL (7.2-11.7); MONO # 1.3 K/uL (0.0-0.8); MONO % 7.3 % (0.0-10.0); PLATELET COUNT 351 K/uL (130-400); RED CELL DISTRIBUTION WIDTH 15.8 % (11.5-14.5); WHITE BLOOD COUNT 17.8 K/uL (4.8-10.8)
[2017-03-02 13:13] LABS: CHLORIDE 92 mmol/L (98-107); SODIUM 134 mmol/L (132-148)
[2017-03-02 13:15] LABS: GFR AFRICAN-AMERICAN > 60
[2017-03-02 13:16] LABS: ALB/GLOB RATIO 1.2 (1.0-2.1); ALKALINE PHOSPHATASE 69 U/L (38-126); ALT/SGPT 6 U/L (9-52); AST/SGOT 30 U/L (14-36); BILIRUBIN,TOTAL 0.9 mg/dL (0.2-1.3); BLOOD UREA NITROGEN 16 mg/dL (7-17); CALCIUM 8.3 mg/dl (8.6-10.4); CARBON DIOXIDE 26 mmol/L (22-30); GLUCOSE,RANDOM 191 mg/dL (65-105); TOTAL PROTEIN 7.1 g/dL (6.3-8.3)
[2017-03-02 13:42] LABS: POTASSIUM 2.4 mmol/L (3.6-5.2)
[2017-03-02] MEDS ORDERED: Potassium Chloride 20 mEq ER Tab PO STA (13:48)
[2017-03-02 14:19] LABS: EOSINOPHIL 2 % (0-4); NEUTROPHIL 85 % (50-75); TOTAL CELLS COUNTED 100
[2017-03-02 14:20] LABS: LARGE PLATELETS PRESENT
[2017-03-02 16:03] LABS: MAGNESIUM 1.4 mg/dL (1.6-2.3)
--- NOTE | 2017-03-02 17:19 | CP.PCM.CON ---
History of Present Illness - History of Present Illness History of Present Illness: INFECTIOUS DISEASE CONSULT; 72-year-old female with history of diabetes mellitus, hypertension, COPD, PVD s/ p fem-fem bypass on 02/11/17, recently discharged from TCU on 02/27/17 AND return to the ER on 02/28/17 complaining of abdominal pain and vomiting. Patient still complains of nausea for past several days and also complains of constipation and states has not moved her bowels for past 2 days. Abdominal obstructive series were negative for small bowel obstruction. CT of the abdomen and pelvis with by mouth and IV contrast on 02/28/17 showed fluid collection at the right groin at the level of femoral anastomosis 3.8 x 3.2 x 5 cm ? Hematoma/seroma. Also splenic lesion questionable hemangioma was seen slightly larger than before. Patient also was found to have leukocytosis for which infectious disease consultation was requested by PMD. Patient states she had her dejan removed from both her groins today by surgery. Patient presently denies lower abdominal pain but claims that she cannot take both solids and liquids. As reported patient had EGD and colonoscopy performed in 2014, which showed diverticulosis, surgical anastomosis, internal hemorrhoids ,AVMs and distal esophageal narrowing. Patient denies odynophagia, fever or weight loss. PMH: DM, HTN, PVD PSH: Colectomy, Hysterectomy, breast mass removal, Fem-Fem Bypass on 02/11 SH: Former smoker, no EtOH, No drug use All: PCN, Sulfa Meds: See MAR, on ASA and plavix Family history: reviewed, patient denies Review of Systems - Constitutional Constitutional: Weakness. absent: Chills, Fever - EENT Eyes: absent: Change in Vision Nose/Mouth/Throat: absent: Sore Throat - Cardiovascular Cardiovascular: absent: Chest Pain, Dyspnea, Palpitations - Respiratory Respiratory: absent: Cough, Hemoptysis - Gastrointestinal Gastrointestinal: Abdominal Pain, Constipation, Nausea, Vomiting - Genitourinary Genitourinary: absent: Difficulty Urinating, Dysuria - Neurological Neurological: absent: Dizziness - Hematologic/Lymphatic Hematologic: As Per HPI. absent: Easy Bruising, Lymphadenopathy Past Patient History - Infectious Disease Hx of Infectious Diseases: None - Past Medical History & Family History Past Medical History?: Yes - Past Social History Smoking Status: Former Smoker - CARDIAC Hx Cardiac Disorders: Yes Hx Hypercholesterolemia: Yes Hx Hypertension: Yes - PULMONARY Hx Respiratory Disorders: Yes Hx Asthma: Yes Hx Bronchitis: Yes Hx Chronic Obstructive Pulmonary Disease (COPD): Yes Hx Pneumonia: Yes - NEUROLOGICAL Hx Neurological Disorder: No - HEENT Hx HEENT Problems: No - RENAL Hx Chronic Kidney Disease: No - ENDOCRINE/METABOLIC Hx Endocrine Disorders: Yes Hx Diabetes Mellitus Type 2: Yes - HEMATOLOGICAL/ONCOLOGICAL Hx Blood Disorders: No - INTEGUMENTARY Hx Dermatological Problems: No - MUSCULOSKELETAL/RHEUMATOLOGICAL Hx Musculoskeletal Disorders: Yes Hx Arthritis: Yes (HANDS) Hx Falls: Yes Hx Fractures: Yes (RT.FOOT/CASTED NO OR) Hx Osteoporosis: Yes - GASTROINTESTINAL Hx Gastrointestinal Disorders: Yes Hx Bowel Surgery: Yes (COLON RESECTION FOR OBSTRUCTION?) Hx Gastroesophageal Reflux: Yes Other/Comment: HX.OBSTRUCTION HAD BOWEL RESECTION - GENITOURINARY/GYNECOLOGICAL Hx Genitourinary Disorders: No - PSYCHIATRIC Hx Psychophysiologic Disorder: Yes Hx Anxiety: Yes Hx Substance Use: No - SURGICAL HISTORY Hx Surgeries: Yes Hx Angiogram: Yes (Stenting left leg) Hx Breast Biopsy: Yes (RT.) Hx Herniorrhaphy: Yes (UMBILICAL) Hx Hysterectomy: Yes (RYANN) Hx Orthopedic Surgery: Yes (OMAR. BUNIONECTOMY) Hx Tubal Ligation: Yes - ANESTHESIA Hx Anesthesia: Yes Hx Anesthesia Reactions: No Hx Malignant Hyperthermia: No Meds Allergies/Adverse Reactions: Allergies Allergy/AdvReac Type Severity Reaction Status Date / Time Penicillins Allergy SWELLING Verified 02/28/17 15:37 Sulfa (Sulfonamide Allergy RASH Verified 02/28/17 15:37 Antibiotics) tomato AdvReac GI UPSET Verified 02/28/17 15:37 - Medications Medications: Current Medications Alprazolam (Xanax) 0.25 mg PO DAILY PRN PRN Reason: Anxiety Stop: 03/08/17 01:29 Last Admin: 03/02/17 09:10 Dose: 0.25 mg Amlodipine Besylate (Norvasc) 5 mg PO DAILY [facility] Last Admin: 03/02/17 09:09 Dose: 5 mg Aspirin (Ecotrin) 81 mg PO DAILY [facility] Last Admin: 03/02/17 09:09 Dose: 81 mg Bisoprolol Fumarate/HCTZ (Ziac 5-6.25 Mg) 1 tab PO DAILY [facility] Last Admin: 03/02/17 09:26 Dose: 1 tab Cilostazol (Pletal) 50 mg PO BID [facility] Last Admin: 03/02/17 10:41 Dose: 50 mg Clopidogrel Bisulfate (Plavix) 75 mg PO DAILY [facility] Last Admin: 03/02/17 09:10 Dose: 75 mg Glipizide (Glucotrol) 10 mg PO BID [facility] Last Admin: 03/02/17 09:09 Dose: 10 mg Heparin Sodium (Porcine) (Heparin) 5,000 units SC Q12 [facility] Home Med (Alendronate [Fosamax]) 1 tab PO QWK [facility] Potassium Chloride (Potassium Chloride 20 Meq/100 Ml) 20 meq in 100 mls @ 50 mls/hr IVPB Q2 [facility] Stop: 03/02/17 17:59 Last Admin: 03/02/17 14:22 Dose: 50 mls/hr Potassium Chloride 20 meq/ (Sodium Chloride) 1,010 mls @ 100 mls/hr IV .Q10H6M [facility] Insulin Aspart (Novolog) 0 unit SC ACHS [facility] PRN Reason: Protocol Last Admin: 03/02/17 12:25 Dose: 2 unit Metformin HCl (Glucophage) 500 mg PO BID [facility] Last Admin: 03/01/17 10:14 Dose: Not Given Metoclopramide HCl (Reglan) 10 mg IVP Q8H PRN PRN Reason: Nausea/Vomiting Last Admin: 03/02/17 11:03 Dose: 10 mg Ondansetron HCl (Zofran Inj) 4 mg IVP Q6 PRN PRN Reason: Nausea/Vomiting Pantoprazole Sodium (Protonix Inj) 40 mg IVP DAILY [facility] Last Admin: 03/02/17 09:10 Dose: 40 mg Rosuvastatin Calcium (Crestor) 5 mg PO HS [facility] Last Admin: 03/01/17 21:14 Dose: 5 mg Fluticasone/Salmeterol (Advair Diskus 250/50) 1 puff INH RQ12 [facility] Last Admin: 03/02/17 09:08 Dose: Not Given Physical Exam - Constitutional Appears: No Acute Distress - Head Exam Head Exam: NORMAL INSPECTION - Eye Exam Eye Exam: EOMI, PERRL - ENT Exam ENT Exam: Normal Oropharynx - Neck Exam Neck exam: Positive for: Normal Inspection - Respiratory Exam Respiratory Exam: Clear to Auscultation Bilateral, NORMAL BREATHING PATTERN - Cardiovascular Exam Cardiovascular Exam: REGULAR RHYTHM, +S1, +S2 - GI/Abdominal Exam GI & Abdominal Exam: Hypoactive Bowel Sounds, Soft. absent: Guarding, Rebound - Extremities Exam Extremities exam: Positive for: pedal pulses present. Negative for: calf tenderness, pedal edema - Neurological Exam Neurological exam: Alert, CN II-XII Intact, Oriented x3, Reflexes Normal - Psychiatric Exam Psychiatric exam: Normal Mood - Skin Skin Exam: Warm Results - Vital Signs Recent Vital Signs: Last Vital Signs Temp 99.0 F 03/02/17 15:30 Pulse 89 03/02/17 15:30 Resp 20 03/02/17 15:30 BP 149/61 03/02/17 15:30 Pulse Ox 100 03/02/17 15:30 - Labs Result Diagrams: 03/02/17 12:40 03/02/17 12:40 Labs: Laboratory Results - last 24 hr 03/01/17 03/02/17 03/02/17 21:09 07:03 11:13 WBC RBC Hgb Hct MCV MCH MCHC RDW Plt Count MPV Neut % (Auto) Lymph % (Auto) Gentry % (Auto) Eos % (Auto) Baso % (Auto) Neut # Lymph # Gentry # Eos # Baso # Neutrophils % (Manual) Band Neutrophils % Lymphocytes % (Manual) Monocytes % (Manual) Eosinophils % (Manual) Platelet Estimate Large Platelets Hypochromasia (manual) Poikilocytosis (manual Anisocytosis (manual) Sodium Potassium Chloride Carbon Dioxide Anion Gap BUN Creatinine Est GFR ( Amer) Est GFR (Non-Af Amer) POC Glucose (mg/dL) 152 H 166 H 230 H Random Glucose Calcium Magnesium Total Bilirubin AST ALT Alkaline Phosphatase Total Protein Albumin Globulin Albumin/Globulin Ratio 03/02/17 03/02/17 03/02/17 12:40 12:40 16:29 WBC 17.8 H RBC 3.90 Hgb 11.6 Hct 34.9 MCV 89.7 MCH 29.9 MCHC 33.3 RDW 15.8 H Plt Count 351 MPV 8.5 Neut % (Auto) 84.6 H Lymph % (Auto) 7.8 L Gentry % (Auto) 7.3 Eos % (Auto) 0.2 Baso % (Auto) 0.1 Neut # 15.1 H Lymph # 1.4 Gentry # 1.3 H Eos # 0.0 Baso # 0.0 Neutrophils % (Manual) 85 H Band Neutrophils % 1 Lymphocytes % (Manual) 6 L Monocytes % (Manual) 6 Eosinophils % (Manual) 2 Platelet Estimate Normal Large Platelets Present Hypochromasia (manual) Slight Poikilocytosis (manual Slight Anisocytosis (manual) Slight Sodium 134 Potassium 2.4 L* D Chloride 92 L Carbon Dioxide 26 Anion Gap 18 BUN 16 Creatinine 0.6 L Est GFR ( Amer) > 60 Est GFR (Non-Af Amer) > 60 POC Glucose (mg/dL) 156 H Random Glucose 191 H Calcium 8.3 L Magnesium 1.4 L Total Bilirubin 0.9 AST 30 ALT 6 L D Alkaline Phosphatase 69 Total Protein 7.1 Albumin 3.9 Globulin 3.2 Albumin/Globulin Ratio 1.2 - Imaging and Cardiology ct ABDOMEN AND PELVIS WITH BY MOUTH AND iv CONTRAST Status: Report reviewed by me (see full report.) Assessment & Plan (1) Leukocytosis Assessment and Plan: pancultures Patient has a right groin collection ? hematoma/vs seroma. In view of leukocytosis, abdominal pain, nausea and vomiting would initiate IV antibiotics.. Start IV vancomycin 1 g every 24 hourly. 03/02/17 And IV amikacin 1 g x1 one dose for now. Follow-up cultures and adjust antibiotics. CBC with differential in a.m. Status: Acute (2) Abdominal pain Assessment and Plan: etiology of pain and vomiting not clear. GI on case. Will follow recommendations. Status: Acute (3) Nausea Status: Acute (4) Vomiting Assessment and Plan: antiemetics on board. Patient started on Reglan as well by GI. consider EGD to rule out reflux or esophagitis. Status: Acute (5) Anemia Status: Acute (6) Constipation Status: Acute (7) Hypertension Status: Chronic (8) Diabetes mellitus Status: Chronic (9) PVD (peripheral vascular disease) Status: Acute (10) Status post femorofemoral bypass surgery Assessment and Plan: CT of the abdomen and pelvis with by mouth and IV contrast 02/28/17 suggestive off fluid collection at the right groin at the level of femoral anastomosis. Also splenic lesion questionable hemangioma suspected larger in size than before. vascular Surgery on board. Status: Acute
[2017-03-02] MEDS ORDERED: Amikacin Sulfate 1,000 MG in Sodium Chloride 0.9% 250 ML IVPB ONE (18:30)
[2017-03-02] MEDS: Magnesium Sulfate 1 gm in D5W 1 GM/100 ML BAG IVPB SCH ×2 (21:20→22:22)
--- NOTE | 2017-03-02 22:07 | HP ---
HISTORY OF PRESENT ILLNESS: This is a 72-year-old female with history of multiple m edical problems. Recently had a fem-fem stem bypass surgery and she was in transitional care unit fo r rehabilitation. After the patient went home, started to develop nonspecific abdominal pain and hiram sea and vomiting. The patient has been vomiting mucus and she is not able to eat. The patient also did not move her bowels for 2 days, but she does pass flatus. The patient was evaluated by gastroent erology and surgery. There are no symptoms of fever or chills. The patient had a previous hemicolec juaquin for recurrent diverticulitis. REVIEW OF SYSTEMS: Other review of systems is negative. ALLERGIES: ALLERGY TO PENICILLIN, SULFA, SULFONAMIDE, AND TOMATO. SOCIAL HISTORY: The patient is a smoker, more than 40 years. No substance abuse. No alcohol. FAMILY HISTORY: Noncontributory. PAST MEDICAL HISTORY: Hypertension, type 2 diabetes mellitus, peripheral vascular disease, status po st fem-fem bypass surgery, hypertension, partial colectomy for diverticulitis. PHYSICAL EXAMINATION: GENERAL: The patient is in bed in mild distress due to the nausea. VITAL SIGNS: Blood pressure is 149/61, temperature 99.0, respiratory rate 20, and pulse 89. HEENT: Pupils equal, reactive to light. Normal-appearing mucosa of the conjunctivae, oropharyngeal, and nasal membrane mucosa. NECK: Supple, no JVD, no carotid bruit, no lymph node, no thyromegaly. CHEST AND LUNGS: Bilaterally symmetrical expansion, good air exchange, no rales, no rhonchi. CARDIOVASCULAR: PMI not localized. S1, S2. No additional sounds. ABDOMEN: Normal active bowel sounds. There is slight lower abdominal tenderness. No rebound tender ness or rigidity. EXTREMITIES: No cyanosis, no clubbing, no edema. CENTRAL NERVOUS SYSTEM: Alert, awake, oriented x 2, and the patient moves all extremities equally. ASSESSMENT: 1. Nonspecific abdominal pain and persistent nausea. Differential diagnoses include gastritis versu s gastroesophageal pathology. 2. Leukocytosis, likely secondary to the patient was on steroids for exacerbation of chronic obstruc tive pulmonary disease. PLAN: ID, surgical, and gastroenterology consultations and follow recommendations. IV fluid and sup plement potassium, as today potassium level is 2.4, and also magnesium is 1.4. Will place the patien t on telemetry. Cortney Lalit Ledesma MD cc: [phone] TT: 03/02/2017 22:07:01 dn
[2017-03-03 01:52] LABS: CHLORIDE 95 mmol/L (98-107); SODIUM 130 mmol/L (132-148)
[2017-03-03 01:55] LABS: BLOOD UREA NITROGEN 10 mg/dL (7-17); CARBON DIOXIDE 23 mmol/L (22-30); GFR AFRICAN-AMERICAN > 60; GLUCOSE,RANDOM 193 mg/dL (65-105)
--- NOTE | 2017-03-03 06:20 | CP.PCM.PN ---
<Melany Lewis - Last Filed: 03/03/17 08:00> Subjective - Date & Time of Evaluation Date of Evaluation: 03/03/17 Time of Evaluation: 06:12 - Subjective Subjective: Gastroenterology Fellow/PGY4 Progress Note Patient continues to feel nauseous. Tolerated liquid diet yesterday without vomiting. No bowel movement for three days. A 12-point review of systems negative except for as above. Objective - Vital Signs/Intake and Output Vital Signs (last 24 hours): Temp Pulse Resp BP Pulse Ox 98.2 F 90 20 147/56 L 100 03/02/17 23:30 03/02/17 23:30 03/02/17 23:30 03/02/17 23:30 03/02/17 23:30 Intake and Output: 03/02/17 03/03/17 18:59 06:59 Intake Total 2250 Balance 2250 - Medications Medications: Current Medications Alprazolam (Xanax) 0.25 mg PO DAILY PRN PRN Reason: Anxiety Stop: 03/08/17 01:29 Last Admin: 03/02/17 23:43 Dose: 0.25 mg Amlodipine Besylate (Norvasc) 5 mg PO DAILY [facility] Last Admin: 03/02/17 09:09 Dose: 5 mg Aspirin (Ecotrin) 81 mg PO DAILY [facility] Last Admin: 03/02/17 09:09 Dose: 81 mg Bisoprolol Fumarate/HCTZ (Ziac 5-6.25 Mg) 1 tab PO DAILY [facility] Last Admin: 03/02/17 09:26 Dose: 1 tab Cilostazol (Pletal) 50 mg PO BID [facility] Last Admin: 03/02/17 19:10 Dose: 50 mg Clopidogrel Bisulfate (Plavix) 75 mg PO DAILY [facility] Last Admin: 03/02/17 09:10 Dose: 75 mg Glipizide (Glucotrol) 10 mg PO BID [facility] Last Admin: 03/02/17 19:11 Dose: 10 mg Heparin Sodium (Porcine) (Heparin) 5,000 units SC Q12 [facility] Last Admin: 03/02/17 21:19 Dose: 5,000 units Home Med (Alendronate [Fosamax]) 1 tab PO QWK [facility] Potassium Chloride 20 meq/ (Sodium Chloride) 1,010 mls @ 100 mls/hr IV .Q10H6M [facility] Last Admin: 03/02/17 19:16 Dose: 100 mls/hr Vancomycin HCl 1 gm/ Sodium (Chloride) 250 mls @ 166.7 mls/hr IVPB Q24H [facility] Last Admin: 03/02/17 22:28 Dose: 166.7 mls/hr Insulin Aspart (Novolog) 0 unit SC ACHS [facility] PRN Reason: Protocol Last Admin: 03/02/17 22:00 Dose: Not Given Metformin HCl (Glucophage) 500 mg PO BID [facility] Last Admin: 03/01/17 10:14 Dose: Not Given Metoclopramide HCl (Reglan) 10 mg IVP Q8H PRN PRN Reason: Nausea/Vomiting Last Admin: 03/02/17 11:03 Dose: 10 mg Ondansetron HCl (Zofran Inj) 4 mg IVP Q6 PRN PRN Reason: Nausea/Vomiting Pantoprazole Sodium (Protonix Inj) 40 mg IVP DAILY [facility] Last Admin: 03/02/17 09:10 Dose: 40 mg Rosuvastatin Calcium (Crestor) 5 mg PO HS [facility] Last Admin: 03/02/17 21:20 Dose: 5 mg Fluticasone/Salmeterol (Advair Diskus 250/50) 1 puff INH RQ12 [facility] Last Admin: 03/02/17 19:36 Dose: Not Given - Labs Labs: 03/02/17 12:40 03/03/17 01:41 - Constitutional Appears: Non-toxic, No Acute Distress - Head Exam Head Exam: ATRAUMATIC, NORMOCEPHALIC - Eye Exam Eye Exam: EOMI, PERRL Pupil Exam: PERRL. absent: Miosis, Mydriatic - ENT Exam ENT Exam: Mucous Membranes Moist, Normal Oropharynx - Neck Exam Neck Exam: Full ROM, Normal Inspection - Respiratory Exam Respiratory Exam: Clear to Ausculation Bilateral. absent: Rales, Rhonchi, Wheezes - Cardiovascular Exam Cardiovascular Exam: RRR, +S1, +S2. absent: Gallop, Rubs - GI/Abdominal Exam GI & Abdominal Exam: Soft, Normal Bowel Sounds. absent: Distended, Firm, Guarding, Rigid, Tenderness, Organomegaly, Rebound - Extremities Exam Extremities Exam: Normal Inspection. absent: Pedal Edema - Neurological Exam Neurological Exam: Alert, Awake - Psychiatric Exam Psychiatric exam: Normal Affect, Normal Mood - Skin Skin Exam: Dry, Intact, Normal Color, Warm Assessment and Plan - Assessment and Plan (Free Text) Assessment: 72 year old female with history of Diabetes, Hypertensio, diverticulitis s/p partial colon resection, and recent discharge 02/27 for PVD s/p fem-fem bypass () on Plavix, COPD exacerbation, and acute bronchitis on steroid therapy presenting with vomiting and abdominal pain. CT A/P with right groin fluid collection. EGD and colonoscopy August 2015 showed possible distal esophageal narrowing, gastric AVM, diverticulosis, and surgical anastamosis. Plan: >pending esophagram >CT A/P- no obstructive pathology >full liquids, advance as tolerated >bowel regimen: Miralax daily >supportive care: anti-emetics, PPI >leukocytosis- multifactorial- infectious, demargination >pending blood and urine cultures >vascular surgery managing- patent graft, follow recommendations >may consider EGD if symptoms persist <Titus Betancur - Last Filed: 03/03/17 08:25> Objective - Vital Signs/Intake and Output Vital Signs (last 24 hours): Temp Pulse Resp BP Pulse Ox 98.5 F 80 20 157/55 H 100 03/03/17 07:02 03/03/17 07:02 03/03/17 07:02 03/03/17 07:02 03/03/17 07:02 Intake and Output: 03/03/17 03/03/17 06:59 18:59 Intake Total 920 Balance 920 - Medications Medications: Current Medications Alprazolam (Xanax) 0.25 mg PO DAILY PRN PRN Reason: Anxiety Stop: 03/08/17 01:29 Last Admin: 03/02/17 23:43 Dose: 0.25 mg Amlodipine Besylate (Norvasc) 5 mg PO DAILY [facility] Last Admin: 03/02/17 09:09 Dose: 5 mg Aspirin (Ecotrin) 81 mg PO DAILY [facility] Last Admin: 03/02/17 09:09 Dose: 81 mg Bisoprolol Fumarate/HCTZ (Ziac 5-6.25 Mg) 1 tab PO DAILY [facility] Last Admin: 03/02/17 09:26 Dose: 1 tab Cilostazol (Pletal) 50 mg PO BID [facility] Last Admin: 03/02/17 19:10 Dose: 50 mg Clopidogrel Bisulfate (Plavix) 75 mg PO DAILY [facility] Last Admin: 03/02/17 09:10 Dose: 75 mg Glipizide (Glucotrol) 10 mg PO BID [facility] Last Admin: 03/02/17 19:11 Dose: 10 mg Heparin Sodium (Porcine) (Heparin) 5,000 units SC Q12 [facility] Last Admin: 03/02/17 21:19 Dose: 5,000 units Home Med (Alendronate [Fosamax]) 1 tab PO QWK [facility] Potassium Chloride 20 meq/ (Sodium Chloride) 1,010 mls @ 100 mls/hr IV .Q10H6M [facility] Last Admin: 03/03/17 04:00 Dose: Not Given Vancomycin HCl 1 gm/ Sodium (Chloride) 250 mls @ 166.7 mls/hr IVPB Q24H [facility] Last Admin: 03/02/17 22:28 Dose: 166.7 mls/hr Insulin Aspart (Novolog) 0 unit SC ACHS [facility] PRN Reason: Protocol Last Admin: 03/03/17 07:52 Dose: Not Given Metformin HCl (Glucophage) 500 mg PO BID [facility] Last Admin: 03/01/17 10:14 Dose: Not Given Metoclopramide HCl (Reglan) 10 mg IVP Q8H PRN PRN Reason: Nausea/Vomiting Last Admin: 03/02/17 11:03 Dose: 10 mg Ondansetron HCl (Zofran Inj) 4 mg IVP Q6 PRN PRN Reason: Nausea/Vomiting Pantoprazole Sodium (Protonix Inj) 40 mg IVP DAILY [facility] Last Admin: 03/02/17 09:10 Dose: 40 mg Polyethylene Glycol (Miralax) 17 gm PO DAILY [facility] Rosuvastatin Calcium (Crestor) 5 mg PO HS [facility] Last Admin: 03/02/17 21:20 Dose: 5 mg Fluticasone/Salmeterol (Advair Diskus 250/50) 1 puff INH RQ12 [facility] Last Admin: 03/02/17 19:36 Dose: Not Given - Labs Labs: 03/03/17 07:30 03/03/17 07:30 Attending/Attestation - Attestation I have personally seen and examined this patient.: Yes I have fully participated in the care of the patient.: Yes I have reviewed all pertinent clinical information, including history, physical exam and plan: Yes Notes (Text): 03/03/17 08:21 I have seen and examined patient with GI fellow. No acute events overnight, she still continues to complain of nausea though no recurrent vomiting noted. She denies abdominal pain, fever/chills. Tolerating PO liquids without difficulty. DM / HTN PVD s/p fem-fem bypass on plavix COPD Nausea, prior vomiting - unclear etiology, possibly medication related. Patient with prior abnormal EGD in 2014. Leukocytosis - Advance to full liquid diet as tolerated - Continue with antibiotic therapy as per ID, follow up blood/urine cultures - Anti-emetic therapy PRN - Follow up vascular surgery recommendations regarding R groin fluid collection - Awaiting esophagram given ?distal esophageal narrowing visualized on prior EGD - Will continue to monitor patient clinical course
[2017-03-03 07:47] LABS: BASO % 0.1 % (0.0-2.0); EOS # 0.2 K/uL (0.0-0.7); EOS % 1.2 % (0.0-4.0); HEMATOCRIT 33.2 % (34.0-47.0); LYMPH # 1.2 K/uL (1.0-4.3); LYMPH % 7.8 % (20.0-40.0); MEAN CELL VOLUME 90.6 fL (81.0-99.0); MEAN CORPUSCULAR HEMOGLOBIN 30.3 pg (27.0-31.0); MEAN CORPUSCULAR HGB CONC 33.4 g/dL (33.0-37.0); MEAN PLATELET VOLUME 8.3 fL (7.2-11.7); MONO # 1.3 K/uL (0.0-0.8); MONO % 8.1 % (0.0-10.0); PLATELET COUNT 325 K/uL (130-400); RED CELL DISTRIBUTION WIDTH 15.9 % (11.5-14.5); WHITE BLOOD COUNT 15.8 K/uL (4.8-10.8)
[2017-03-03] MEDS: (Novolog) Insulin Aspart, Recombinant 100 u/ml 10 ml vial SC SCH ×4 (07:52→21:53)
[2017-03-03 07:56] LABS: CHLORIDE 98 mmol/L (98-107)
[2017-03-03 07:57] LABS: POTASSIUM 3.1 mmol/L (3.6-5.2); SODIUM 133 mmol/L (132-148)
[2017-03-03 07:59] LABS: ALB/GLOB RATIO 1.2 (1.0-2.1); ALKALINE PHOSPHATASE 67 U/L (38-126); ALT/SGPT 18 U/L (9-52); AST/SGOT 22 U/L (14-36); BILIRUBIN,TOTAL 0.9 mg/dL (0.2-1.3); BLOOD UREA NITROGEN 9 mg/dL (7-17); CARBON DIOXIDE 23 mmol/L (22-30); GFR AFRICAN-AMERICAN > 60; TOTAL PROTEIN 6.4 g/dL (6.3-8.3)
[2017-03-03 08:00] LABS: CALCIUM 6.8 mg/dl (8.6-10.4); GLUCOSE,RANDOM 143 mg/dL (65-105)
[2017-03-03] MEDS: Fluticasone-Salmeterol 250-50mcg Diskus INH SCH ×2 (08:23→19:57)
[2017-03-03] MEDS ORDERED: Potassium Chloride 20 mEq ER Tab PO STA (09:07)
[2017-03-03 10:03] LABS: EOSINOPHIL 1 % (0-4); NEUTROPHIL 82 % (50-75); TOTAL CELLS COUNTED 100
--- NOTE | 2017-03-03 10:29 | CP.PCM.PN ---
Subjective - Date & Time of Evaluation Date of Evaluation: 03/03/17 Time of Evaluation: 10:27 - Subjective Subjective: Surgery: Dr. Rankin Patient doing better today. She still complains of feeling nauseous w/ episodes of gagging but denies actual vomiting. She states she tolerated some liquids yesterday. She denies pain to the legs. She denies f/c. Objective - Vital Signs/Intake and Output Vital Signs (last 24 hours): Temp Pulse Resp BP Pulse Ox 98.5 F 80 20 157/55 H 100 03/03/17 07:02 03/03/17 07:02 03/03/17 07:02 03/03/17 07:02 03/03/17 07:02 Intake and Output: 03/03/17 03/03/17 06:59 18:59 Intake Total 920 Balance 920 - Medications Medications: Current Medications Alprazolam (Xanax) 0.25 mg PO DAILY PRN PRN Reason: Anxiety Stop: 03/08/17 01:29 Last Admin: 03/03/17 09:47 Dose: 0.25 mg Amlodipine Besylate (Norvasc) 5 mg PO DAILY [facility] Last Admin: 03/03/17 09:26 Dose: 5 mg Aspirin (Ecotrin) 81 mg PO DAILY [facility] Last Admin: 03/03/17 09:26 Dose: 81 mg Bisoprolol Fumarate/HCTZ (Ziac 5-6.25 Mg) 1 tab PO DAILY [facility] Last Admin: 03/02/17 09:26 Dose: 1 tab Cilostazol (Pletal) 50 mg PO BID [facility] Last Admin: 03/02/17 19:10 Dose: 50 mg Clopidogrel Bisulfate (Plavix) 75 mg PO DAILY [facility] Last Admin: 03/03/17 09:27 Dose: 75 mg Glipizide (Glucotrol) 10 mg PO BID [facility] Last Admin: 03/03/17 09:26 Dose: 10 mg Heparin Sodium (Porcine) (Heparin) 5,000 units SC Q12 [facility] Last Admin: 03/03/17 09:28 Dose: 5,000 units Home Med (Alendronate [Fosamax]) 1 tab PO QWK [facility] Potassium Chloride 20 meq/ (Sodium Chloride) 1,010 mls @ 100 mls/hr IV .Q10H6M [facility] Last Admin: 03/03/17 09:38 Dose: 100 mls/hr Vancomycin HCl 1 gm/ Sodium (Chloride) 250 mls @ 166.7 mls/hr IVPB Q24H [facility] Last Admin: 03/02/17 22:28 Dose: 166.7 mls/hr Insulin Aspart (Novolog) 0 unit SC ACHS [facility] PRN Reason: Protocol Last Admin: 03/03/17 07:52 Dose: Not Given Metformin HCl (Glucophage) 500 mg PO BID [facility] Last Admin: 03/01/17 10:14 Dose: Not Given Metoclopramide HCl (Reglan) 10 mg IVP Q8H PRN PRN Reason: Nausea/Vomiting Last Admin: 03/02/17 11:03 Dose: 10 mg Ondansetron HCl (Zofran Inj) 4 mg IVP Q6 PRN PRN Reason: Nausea/Vomiting Pantoprazole Sodium (Protonix Inj) 40 mg IVP DAILY [facility] Last Admin: 03/03/17 09:28 Dose: 40 mg Polyethylene Glycol (Miralax) 17 gm PO DAILY [facility] Rosuvastatin Calcium (Crestor) 5 mg PO HS [facility] Last Admin: 03/02/17 21:20 Dose: 5 mg Fluticasone/Salmeterol (Advair Diskus 250/50) 1 puff INH RQ12 [facility] Last Admin: 03/03/17 08:23 Dose: 1 puff - Labs Labs: 03/03/17 07:30 03/03/17 07:30 - Constitutional Appears: Non-toxic, No Acute Distress - Head Exam Head Exam: ATRAUMATIC, NORMOCEPHALIC - Eye Exam Eye Exam: EOMI - ENT Exam ENT Exam: Mucous Membranes Moist - Respiratory Exam Respiratory Exam: NORMAL BREATHING PATTERN. absent: Respiratory Distress - Cardiovascular Exam Cardiovascular Exam: REGULAR RHYTHM. absent: Tachycardia - GI/Abdominal Exam GI & Abdominal Exam: Soft. absent: Distended, Guarding, Rigid, Tenderness Additional comments: pulse palpated in suprapubic area, in area of graft - Extremities Exam Additional comments: bilateral groin incisions CDI, dejan removed. Assessment and Plan - Assessment and Plan (Free Text) Assessment: 72 y/o female w/ abdominal pain n/v Plan: -symptoms most likely enteritis and constipation, patient requesting suppository for assistance w/ BM -fem-fem graft patent -cont supportive care -ADAT -daily labs -electrolyte repletion -d/w Dr. Chucho Shah PGY1
[2017-03-03] MEDS: Cilostazol 50 mg Tab UD PO SCH ×2 (11:29→17:37)
[2017-03-03] MEDS: POLYETHYLENE GLYCOL 3350 17 GM/Dose PACKET PO SCH (11:30)
[2017-03-03] MEDS: Bisoprolol-HCTZ 5-6.25 mg Tab PO SCH (11:30)
--- NOTE | 2017-03-03 13:18 | CP.PCM.PN ---
Subjective - Date & Time of Evaluation Date of Evaluation: 03/03/17 Time of Evaluation: 13:18 - Subjective Subjective: AFEBRILE FEELS BETTER TODAY. C/O NAUSEA BUT TOLERATED SOME LIQUIDS TODAY. c/o no BM X3 DAYS DENIES ANY VOMITING. DENIES ANY ABDOMINAL PAIN. DENIES ANY FEVER OR CHILLS. Objective - Vital Signs/Intake and Output Vital Signs (last 24 hours): Temp Pulse Resp BP Pulse Ox 98.5 F 80 20 157/55 H 100 03/03/17 07:02 03/03/17 07:02 03/03/17 07:02 03/03/17 07:02 03/03/17 07:02 Intake and Output: 03/03/17 03/03/17 06:59 18:59 Intake Total 920 Balance 920 - Medications Medications: Current Medications Alprazolam (Xanax) 0.25 mg PO DAILY PRN PRN Reason: Anxiety Stop: 03/08/17 01:29 Last Admin: 03/03/17 09:47 Dose: 0.25 mg Amlodipine Besylate (Norvasc) 5 mg PO DAILY [facility] Last Admin: 03/03/17 09:26 Dose: 5 mg Aspirin (Ecotrin) 81 mg PO DAILY [facility] Last Admin: 03/03/17 09:26 Dose: 81 mg Bisoprolol Fumarate/HCTZ (Ziac 5-6.25 Mg) 1 tab PO DAILY [facility] Last Admin: 03/03/17 11:30 Dose: 1 tab Cilostazol (Pletal) 50 mg PO BID [facility] Last Admin: 03/03/17 11:29 Dose: 50 mg Clopidogrel Bisulfate (Plavix) 75 mg PO DAILY [facility] Last Admin: 03/03/17 09:27 Dose: 75 mg Glipizide (Glucotrol) 10 mg PO BID [facility] Last Admin: 03/03/17 09:26 Dose: 10 mg Heparin Sodium (Porcine) (Heparin) 5,000 units SC Q12 [facility] Last Admin: 03/03/17 09:28 Dose: 5,000 units Home Med (Alendronate [Fosamax]) 1 tab PO QWK [facility] Potassium Chloride 20 meq/ (Sodium Chloride) 1,010 mls @ 100 mls/hr IV .Q10H6M [facility] Last Admin: 03/03/17 09:38 Dose: 100 mls/hr Vancomycin HCl 1 gm/ Sodium (Chloride) 250 mls @ 166.7 mls/hr IVPB Q24H [facility] Last Admin: 03/02/17 22:28 Dose: 166.7 mls/hr Doxycycline Hyclate 100 mg/ (Sodium Chloride) 100 mls @ 100 mls/hr IVPB Q12H [facility] Insulin Aspart (Novolog) 0 unit SC ACHS [facility] PRN Reason: Protocol Last Admin: 03/03/17 12:00 Dose: 2 unit Metformin HCl (Glucophage) 500 mg PO BID [facility] Last Admin: 03/01/17 10:14 Dose: Not Given Metoclopramide HCl (Reglan) 10 mg IVP Q8H PRN PRN Reason: Nausea/Vomiting Last Admin: 03/03/17 12:01 Dose: 10 mg Ondansetron HCl (Zofran Inj) 4 mg IVP Q6 PRN PRN Reason: Nausea/Vomiting Pantoprazole Sodium (Protonix Inj) 40 mg IVP DAILY [facility] Last Admin: 03/03/17 09:28 Dose: 40 mg Polyethylene Glycol (Miralax) 17 gm PO DAILY [facility] Last Admin: 03/03/17 11:30 Dose: 17 gm Rosuvastatin Calcium (Crestor) 5 mg PO HS [facility] Last Admin: 03/02/17 21:20 Dose: 5 mg Fluticasone/Salmeterol (Advair Diskus 250/50) 1 puff INH RQ12 [facility] Last Admin: 03/03/17 08:23 Dose: 1 puff - Labs Labs: 03/03/17 07:30 03/03/17 07:30 - Constitutional Appears: No Acute Distress - Head Exam Head Exam: NORMAL INSPECTION - Eye Exam Eye Exam: EOMI, PERRL. absent: Scleral icterus - ENT Exam ENT Exam: Normal Oropharynx - Respiratory Exam Respiratory Exam: Clear to Ausculation Bilateral, NORMAL BREATHING PATTERN - Cardiovascular Exam Cardiovascular Exam: REGULAR RHYTHM, +S1, +S2 - GI/Abdominal Exam GI & Abdominal Exam: Soft, Hypoactive Bowel Sounds - Extremities Exam Extremities Exam: absent: Calf Tenderness, Pedal Edema - Neurological Exam Neurological Exam: Alert, Awake, CN II-XII Intact, Oriented x3, Reflexes Normal Neuro motor strength exam: Left Upper Extremity: 5, Right Upper Extremity: 5, Left Lower Extremity: 5, Right Lower Extremity: 5 - Psychiatric Exam Psychiatric exam: Normal Mood - Skin Skin Exam: Normal Color, Warm Assessment and Plan (1) Leukocytosis Assessment & Plan: WBC 15.8 IMPROVING. BLOOD CULTURES 2 SETS NEGATIVE ua NEGATIVE lftS NORMAL SOURCE OF LEUKOCYTOSIS ?ENTERITIS/VS ILEUS/VS POSTOPERATIVE RT GROIN COLLECTION S/P FEM-FEM BYPASS AT THE ANASTOMOSIS SITE CONTINUE iv DOXYCYCLINE 100 MG EVERY 24 HOURLY. 03/02/17 CONTINUE VANCOMYCIN 1 G EVERY 24 HOURLY FOR NOW 03/02/17. FOLLOW-UP CULTURES fOLLOW-UP ESOPHAGOGRAM Status: Acute (2) Abdominal pain Assessment & Plan: IMPROVED. NAUSEA PERSISTS BUT NO VOMITING TOLERATING LIQUIDS Status: Acute (3) Nausea Status: Acute (4) Vomiting Status: Acute (5) Anemia Status: Acute (6) Constipation Status: Acute (7) Hypertension Status: Chronic (8) Diabetes mellitus Status: Chronic (9) PVD (peripheral vascular disease) Status: Acute (10) Status post femorofemoral bypass surgery Status: Acute
[2017-03-03 13:26] LABS: RBC URINE 2 /hpf (0-3); URINE BILIRUBIN NEGATIVE (NEGATIVE); URINE BLOOD NEGATIVE (NEGATIVE); URINE GLUCOSE (UA) 1+ mg/dL (Normal); URINE KETONE TRACE mg/dL (NEGATIVE); URINE LEUKOCYTE ESTERASE NEG Leu/uL (Negative); URINE PROTEIN 1+ mg/dL (NEGATIVE); URINE UROBILINOGEN NORMAL mg/dL (0.2-1.0); WBC URINE 1 /hpf (0-5)
[2017-03-03 13:28] LABS: URINE COLOR YELLOW (YELLOW)
[2017-03-04 07:07] LABS: HEMATOCRIT 29.1 % (34.0-47.0)
[2017-03-04 07:15] LABS: BASO % 0.4 % (0.0-2.0); EOS # 0.2 K/uL (0.0-0.7); EOS % 1.4 % (0.0-4.0); LYMPH # 1.3 K/uL (1.0-4.3); LYMPH % 11.5 % (20.0-40.0); MEAN CELL VOLUME 92.3 fL (81.0-99.0); MEAN CORPUSCULAR HEMOGLOBIN 31.3 pg (27.0-31.0); MEAN CORPUSCULAR HGB CONC 33.9 g/dL (33.0-37.0); MEAN PLATELET VOLUME 8.4 fL (7.2-11.7); MONO % 9.4 % (0.0-10.0); NRBC % 0.1 % (0.0-2.0); RED CELL DISTRIBUTION WIDTH 15.4 % (11.5-14.5); WHITE BLOOD COUNT 11.1 K/uL (4.8-10.8)
[2017-03-04 07:26] LABS: CHLORIDE 100 mmol/L (98-107)
[2017-03-04 07:27] LABS: POTASSIUM 3.5 mmol/L (3.6-5.2); SODIUM 135 mmol/L (132-148)
[2017-03-04 07:29] LABS: ALB/GLOB RATIO 1.1 (1.0-2.1); ALKALINE PHOSPHATASE 58 U/L (38-126); ALT/SGPT 18 U/L (9-52); AST/SGOT 14 U/L (14-36); BILIRUBIN,TOTAL 0.8 mg/dL (0.2-1.3); BLOOD UREA NITROGEN 6 mg/dL (7-17); CALCIUM 6.2 mg/dl (8.6-10.4); CARBON DIOXIDE 23 mmol/L (22-30); GFR AFRICAN-AMERICAN > 60; GLUCOSE,RANDOM 107 mg/dL (65-105); TOTAL PROTEIN 6.2 g/dL (6.3-8.3)
[2017-03-04] MEDS: (Novolog) Insulin Aspart, Recombinant 100 u/ml 10 ml vial SC SCH ×4 (07:50→21:34)
[2017-03-04] MEDS: Fluticasone-Salmeterol 250-50mcg Diskus INH SCH ×2 (08:11→19:44)
--- NOTE | 2017-03-04 09:06 | CP.PCM.PN ---
Subjective - Date & Time of Evaluation Date of Evaluation: 03/04/17 Time of Evaluation: 09:02 - Subjective Subjective: Surgery: Dr. Rankin Patient states she feels much better today. She denies any further nausea but the liquid diet does not "sit right" on her stomach. she would like to try more food today. She denies f/c. She denies pain to the LE or pain around the graft. Objective - Vital Signs/Intake and Output Vital Signs (last 24 hours): Temp Pulse Resp BP Pulse Ox 98.7 F 86 18 119/50 L 98 03/04/17 07:05 03/04/17 07:42 03/04/17 07:05 03/04/17 07:05 03/04/17 07:05 Intake and Output: 03/04/17 03/04/17 06:59 18:59 Intake Total 965 Balance 965 - Medications Medications: Current Medications Alprazolam (Xanax) 0.25 mg PO DAILY PRN PRN Reason: Anxiety Stop: 03/08/17 01:29 Last Admin: 03/03/17 09:47 Dose: 0.25 mg Amlodipine Besylate (Norvasc) 5 mg PO DAILY [facility] Last Admin: 03/03/17 09:26 Dose: 5 mg Aspirin (Ecotrin) 81 mg PO DAILY [facility] Last Admin: 03/03/17 09:26 Dose: 81 mg Bisoprolol Fumarate/HCTZ (Ziac 5-6.25 Mg) 1 tab PO DAILY [facility] Last Admin: 03/03/17 11:30 Dose: 1 tab Cilostazol (Pletal) 50 mg PO BID [facility] Last Admin: 03/03/17 17:37 Dose: 50 mg Clopidogrel Bisulfate (Plavix) 75 mg PO DAILY [facility] Last Admin: 03/03/17 09:27 Dose: 75 mg Glipizide (Glucotrol) 10 mg PO BID [facility] Last Admin: 03/03/17 17:35 Dose: 10 mg Heparin Sodium (Porcine) (Heparin) 5,000 units SC Q12 [facility] Last Admin: 03/03/17 21:39 Dose: 5,000 units Potassium Chloride 20 meq/ (Sodium Chloride) 1,010 mls @ 100 mls/hr IV .Q10H6M [facility] Last Admin: 03/03/17 21:39 Dose: 100 mls/hr Vancomycin HCl 1 gm/ Sodium (Chloride) 250 mls @ 166.7 mls/hr IVPB Q24H [facility] Last Admin: 03/03/17 17:35 Dose: 166.7 mls/hr Doxycycline Hyclate 100 mg/ (Sodium Chloride) 100 mls @ 100 mls/hr IVPB Q12H [facility] Last Admin: 03/04/17 02:00 Dose: 100 mls/hr Insulin Aspart (Novolog) 0 unit SC ACHS [facility] PRN Reason: Protocol Last Admin: 03/04/17 07:50 Dose: Not Given Metformin HCl (Glucophage) 500 mg PO BID [facility] Last Admin: 03/01/17 10:14 Dose: Not Given Metoclopramide HCl (Reglan) 10 mg IVP Q8H PRN PRN Reason: Nausea/Vomiting Last Admin: 03/04/17 03:19 Dose: 10 mg Ondansetron HCl (Zofran Inj) 4 mg IVP Q6 PRN PRN Reason: Nausea/Vomiting Last Admin: 03/04/17 00:31 Dose: 4 mg Pantoprazole Sodium (Protonix Inj) 40 mg IVP DAILY [facility] Last Admin: 03/03/17 09:28 Dose: 40 mg Polyethylene Glycol (Miralax) 17 gm PO DAILY [facility] Last Admin: 03/03/17 11:30 Dose: 17 gm Rosuvastatin Calcium (Crestor) 5 mg PO HS [facility] Last Admin: 03/03/17 21:39 Dose: 5 mg Fluticasone/Salmeterol (Advair Diskus 250/50) 1 puff INH RQ12 [facility] Last Admin: 03/04/17 08:11 Dose: 1 puff - Labs Labs: 03/04/17 06:59 03/04/17 06:59 - Constitutional Appears: Well, Non-toxic, No Acute Distress - Head Exam Head Exam: ATRAUMATIC, NORMOCEPHALIC - Eye Exam Eye Exam: EOMI, Normal appearance - ENT Exam ENT Exam: Mucous Membranes Moist - Respiratory Exam Respiratory Exam: NORMAL BREATHING PATTERN. absent: Respiratory Distress - Cardiovascular Exam Cardiovascular Exam: REGULAR RHYTHM. absent: Tachycardia - GI/Abdominal Exam GI & Abdominal Exam: Soft. absent: Distended, Tenderness - Neurological Exam Neurological Exam: Alert, Awake - Psychiatric Exam Psychiatric exam: Normal Affect, Normal Mood - Skin Skin Exam: Dry, Normal Color, Warm Assessment and Plan - Assessment and Plan (Free Text) Assessment: 72 y/o female w/ abdominal pain n/v, resolving Plan: - advance diet to soft, d/w GI ok for advancement -fem-fem graft patent -cont supportive care -ADAT -daily labs -electrolyte repletion -d/w Dr. Chucho Shah PGY1
[2017-03-04] MEDS: Cilostazol 50 mg Tab UD PO SCH ×2 (10:00→17:43)
--- NOTE | 2017-03-04 10:06 | CP.PCM.PN ---
<Melany Lewis - Last Filed: 03/04/17 10:03> Subjective - Date & Time of Evaluation Date of Evaluation: 03/04/17 Time of Evaluation: 10:03 - Subjective Subjective: Gastroenterology Fellow/PGY4 Progress Note Patient notes resolved nausea. Tolerated full liquid diet. Continues to have intermittent dry heaves. No bowel movement for four days. A 12-point review of systems negative except for as above. Objective - Vital Signs/Intake and Output Vital Signs (last 24 hours): Temp Pulse Resp BP Pulse Ox 98.7 F 86 18 119/50 L 98 03/04/17 07:05 03/04/17 07:42 03/04/17 07:05 03/04/17 07:05 03/04/17 07:05 Intake and Output: 03/04/17 03/04/17 06:59 18:59 Intake Total 965 Balance 965 - Medications Medications: Current Medications Alprazolam (Xanax) 0.25 mg PO DAILY PRN PRN Reason: Anxiety Stop: 03/08/17 01:29 Last Admin: 03/03/17 09:47 Dose: 0.25 mg Amlodipine Besylate (Norvasc) 5 mg PO DAILY [facility] Last Admin: 03/03/17 09:26 Dose: 5 mg Aspirin (Ecotrin) 81 mg PO DAILY [facility] Last Admin: 03/03/17 09:26 Dose: 81 mg Bisoprolol Fumarate/HCTZ (Ziac 5-6.25 Mg) 1 tab PO DAILY [facility] Last Admin: 03/03/17 11:30 Dose: 1 tab Cilostazol (Pletal) 50 mg PO BID [facility] Last Admin: 03/03/17 17:37 Dose: 50 mg Clopidogrel Bisulfate (Plavix) 75 mg PO DAILY [facility] Last Admin: 03/03/17 09:27 Dose: 75 mg Glipizide (Glucotrol) 10 mg PO BID [facility] Last Admin: 03/03/17 17:35 Dose: 10 mg Heparin Sodium (Porcine) (Heparin) 5,000 units SC Q12 [facility] Last Admin: 03/03/17 21:39 Dose: 5,000 units Potassium Chloride 20 meq/ (Sodium Chloride) 1,010 mls @ 100 mls/hr IV .Q10H6M [facility] Last Admin: 03/03/17 21:39 Dose: 100 mls/hr Vancomycin HCl 1 gm/ Sodium (Chloride) 250 mls @ 166.7 mls/hr IVPB Q24H [facility] Last Admin: 03/03/17 17:35 Dose: 166.7 mls/hr Doxycycline Hyclate 100 mg/ (Sodium Chloride) 100 mls @ 100 mls/hr IVPB Q12H [facility] Last Admin: 03/04/17 02:00 Dose: 100 mls/hr Insulin Aspart (Novolog) 0 unit SC ACHS [facility] PRN Reason: Protocol Last Admin: 03/04/17 07:50 Dose: Not Given Metformin HCl (Glucophage) 500 mg PO BID [facility] Last Admin: 03/01/17 10:14 Dose: Not Given Metoclopramide HCl (Reglan) 10 mg IVP Q8H PRN PRN Reason: Nausea/Vomiting Last Admin: 03/04/17 03:19 Dose: 10 mg Ondansetron HCl (Zofran Inj) 4 mg IVP Q6 PRN PRN Reason: Nausea/Vomiting Last Admin: 03/04/17 00:31 Dose: 4 mg Pantoprazole Sodium (Protonix Inj) 40 mg IVP DAILY [facility] Last Admin: 03/03/17 09:28 Dose: 40 mg Polyethylene Glycol (Miralax) 17 gm PO DAILY [facility] Last Admin: 03/03/17 11:30 Dose: 17 gm Rosuvastatin Calcium (Crestor) 5 mg PO HS [facility] Last Admin: 03/03/17 21:39 Dose: 5 mg Fluticasone/Salmeterol (Advair Diskus 250/50) 1 puff INH RQ12 [facility] Last Admin: 03/04/17 08:11 Dose: 1 puff - Labs Labs: 03/04/17 06:59 03/04/17 06:59 - Constitutional Appears: Non-toxic, No Acute Distress - Head Exam Head Exam: ATRAUMATIC, NORMOCEPHALIC - Eye Exam Eye Exam: EOMI, PERRL Pupil Exam: PERRL. absent: Miosis, Mydriatic - ENT Exam ENT Exam: Mucous Membranes Moist, Normal Oropharynx - Neck Exam Neck Exam: Full ROM, Normal Inspection - Respiratory Exam Respiratory Exam: Clear to Ausculation Bilateral. absent: Rales, Rhonchi, Wheezes - Cardiovascular Exam Cardiovascular Exam: RRR, +S1, +S2. absent: Gallop, Rubs - GI/Abdominal Exam GI & Abdominal Exam: Soft, Normal Bowel Sounds. absent: Distended, Firm, Guarding, Rigid, Tenderness, Organomegaly, Rebound Additional comments: B/L lower abdomen dressing C/D/I - Extremities Exam Extremities Exam: Normal Inspection. absent: Pedal Edema - Neurological Exam Neurological Exam: Alert, Awake - Psychiatric Exam Psychiatric exam: Normal Affect, Normal Mood - Skin Skin Exam: Dry, Intact, Normal Color, Warm Assessment and Plan - Assessment and Plan (Free Text) Assessment: 72 year old female with history of Diabetes, Hypertension, diverticulitis s/p partial colon resection, and recent discharge 02/27 for PVD s/p fem-fem bypass () on Plavix, COPD exacerbation, and acute bronchitis on steroid therapy presenting with vomiting and abdominal pain. CT A/P with right groin fluid collection, sigmoid diverticulosis. EGD and colonoscopy August 2015 showed possible distal esophageal narrowing, gastric AVM, diverticulosis, and surgical anastamosis. Plan: >tolerated full liquids >soft diet as tolerated >supportive care: anti-emetics, PPI >further recommendations after esophagram today -evaluate distal esophageal narrowing on EGD 08/2015 >Miralax BID >vascular surgery- follow recommendations >leukocytosis improving >ID managing- doxycycline, vancomycin >will follow clinical course <Shelbi Hugo - Last Filed: 03/04/17 10:44> Objective - Vital Signs/Intake and Output Vital Signs (last 24 hours): Temp Pulse Resp BP Pulse Ox 98.7 F 86 18 119/50 L 98 03/04/17 07:05 03/04/17 07:42 03/04/17 07:05 03/04/17 07:05 03/04/17 07:05 Intake and Output: 03/04/17 03/04/17 06:59 18:59 Intake Total 965 Balance 965 - Medications Medications: Current Medications Alprazolam (Xanax) 0.25 mg PO DAILY PRN PRN Reason: Anxiety Stop: 03/08/17 01:29 Last Admin: 03/03/17 09:47 Dose: 0.25 mg Amlodipine Besylate (Norvasc) 5 mg PO DAILY [facility] Last Admin: 03/03/17 09:26 Dose: 5 mg Aspirin (Ecotrin) 81 mg PO DAILY [facility] Last Admin: 03/03/17 09:26 Dose: 81 mg Bisoprolol Fumarate/HCTZ (Ziac 5-6.25 Mg) 1 tab PO DAILY [facility] Last Admin: 03/03/17 11:30 Dose: 1 tab Cilostazol (Pletal) 50 mg PO BID [facility] Last Admin: 03/03/17 17:37 Dose: 50 mg Clopidogrel Bisulfate (Plavix) 75 mg PO DAILY [facility] Last Admin: 03/03/17 09:27 Dose: 75 mg Glipizide (Glucotrol) 10 mg PO BID [facility] Last Admin: 03/03/17 17:35 Dose: 10 mg Heparin Sodium (Porcine) (Heparin) 5,000 units SC Q12 [facility] Last Admin: 03/03/17 21:39 Dose: 5,000 units Potassium Chloride 20 meq/ (Sodium Chloride) 1,010 mls @ 100 mls/hr IV .Q10H6M [facility] Last Admin: 03/03/17 21:39 Dose: 100 mls/hr Vancomycin HCl 1 gm/ Sodium (Chloride) 250 mls @ 166.7 mls/hr IVPB Q24H [facility] Last Admin: 03/03/17 17:35 Dose: 166.7 mls/hr Doxycycline Hyclate 100 mg/ (Sodium Chloride) 100 mls @ 100 mls/hr IVPB Q12H [facility] Last Admin: 03/04/17 02:00 Dose: 100 mls/hr Insulin Aspart (Novolog) 0 unit SC ACHS [facility] PRN Reason: Protocol Last Admin: 03/04/17 07:50 Dose: Not Given Metformin HCl (Glucophage) 500 mg PO BID [facility] Last Admin: 03/01/17 10:14 Dose: Not Given Metoclopramide HCl (Reglan) 10 mg IVP Q8H PRN PRN Reason: Nausea/Vomiting Last Admin: 03/04/17 03:19 Dose: 10 mg Ondansetron HCl (Zofran Inj) 4 mg IVP Q6 PRN PRN Reason: Nausea/Vomiting Last Admin: 03/04/17 00:31 Dose: 4 mg Pantoprazole Sodium (Protonix Inj) 40 mg IVP DAILY [facility] Last Admin: 03/03/17 09:28 Dose: 40 mg Polyethylene Glycol (Miralax) 17 gm PO BID [facility] Rosuvastatin Calcium (Crestor) 5 mg PO HS [facility] Last Admin: 03/03/17 21:39 Dose: 5 mg Fluticasone/Salmeterol (Advair Diskus 250/50) 1 puff INH RQ12 [facility] Last Admin: 03/04/17 08:11 Dose: 1 puff - Labs Labs: 03/04/17 06:59 03/04/17 06:59 Attending/Attestation - Attestation I have personally seen and examined this patient.: Yes I have fully participated in the care of the patient.: Yes I have reviewed all pertinent clinical information, including history, physical exam and plan: Yes Notes (Text): Patient seen and examined with GI fellow. Agree with her note as documented above with the following additions/exceptions. This is a 72 year old female with history of DM, HTN, diverticulitis s/p partial colon resection, PVD s/p fem -fem bypass (02/11) on plavix, COPD who is admitted with abdominal pain, nausea/ vomiting. She is overall improved today. Abdominal pain better, tolerated liquids yesterday. She has history of esophageal abnormality/narrowing on EGD 2014 and will get esophagram today for further investigation. Would advance diet as tolerated, continue antiemetic therapy as needed. Further recommendations pending clinical course. Follow up surgery recommendations. 03/04/17 10:42
[2017-03-04] MEDS ORDERED: Barium Sulfate for Susp 98% w/w 340g Bottle ONE (10:11)
[2017-03-04] MEDS ORDERED: Barium Sulfate for Susp 96% w/w 176g Bottle PR ONE (10:11)
--- NOTE | 2017-03-04 11:57 | CARD ---
APPROVED REPORT EKG Measurement Heart [id number] VT [id number] <Conclusion> Normal sinus rhythm Nonspecific T wave abnormality Abnormal ECG
[2017-03-04] MEDS ORDERED: Potassium Chloride 20 mEq ER Tab PO ONE (12:15)
[2017-03-04] MEDS: Bisoprolol-HCTZ 5-6.25 mg Tab PO SCH (13:35)
[2017-03-04] MEDS: POLYETHYLENE GLYCOL 3350 17 GM/Dose PACKET PO SCH ×2 (14:37→17:43)
--- NOTE | 2017-03-04 17:06 | RAD ---
PROCEDURE: Upper GI with small bowel series. HISTORY: Vomiting COMPARISON: Comparison is made to the previous CT of the abdomen dated 02/28/2017 TECHNIQUE: Fluoroscopic evaluation of the esophagus stomach and small bowel was performed following administration of oral contrast. FINDINGS: Esophagus: Unremarkable, without gross mucosal abnormality, mass lesion, stricture or obstruction. Hiatal hernia: None. Reflux: None observed. Stomach: Moderate mucosal thickening noted. Otherwise, unremarkable without evidence of ulceration, mass lesion or outlet obstruction. Small bowel: Diffuse mucosal thickening seen in the small bowel especially at the proximal and midportion. No evidence of mass lesion, obstruction or tethering. IMPRESSION: Moderate gastric and small bowel mucosal thickening suspicious for gastritis enteritis. No evidence of obstruction.
--- NOTE | 2017-03-04 23:03 | CP.PCM.PN ---
Subjective - Date & Time of Evaluation Date of Evaluation: 03/04/17 Time of Evaluation: 23:03 - Subjective Subjective: AFEBRILE FEELS BETTER TODAY. C/O NAUSEA BUT TOLERATED SOFT DIET. c/o no BM X4 DAYS DENIES ANY VOMITING. Had GI with esophagus and small bowel series TODAY. bLOOD CULTURES 51 NEGATIVE FOR 48 HOURS wbc 11.1 IMPROVING. Objective - Vital Signs/Intake and Output Vital Signs (last 24 hours): Temp Pulse Resp BP Pulse Ox 98.2 F 80 20 119/63 97 03/04/17 15:58 03/04/17 15:58 03/04/17 15:58 03/04/17 15:58 03/04/17 15:58 Intake and Output: 03/04/17 03/05/17 18:59 06:59 Intake Total 480 Output Total 2 Balance 478 - Medications Medications: Current Medications Alprazolam (Xanax) 0.25 mg PO DAILY PRN PRN Reason: Anxiety Stop: 03/08/17 01:29 Last Admin: 03/03/17 09:47 Dose: 0.25 mg Amlodipine Besylate (Norvasc) 5 mg PO DAILY [facility] Last Admin: 03/04/17 10:00 Dose: Not Given Aspirin (Ecotrin) 81 mg PO DAILY [facility] Last Admin: 03/04/17 10:23 Dose: Not Given Bisoprolol Fumarate/HCTZ (Ziac 5-6.25 Mg) 1 tab PO DAILY [facility] Last Admin: 03/04/17 13:35 Dose: 1 tab Cilostazol (Pletal) 50 mg PO BID [facility] Last Admin: 03/04/17 17:43 Dose: 50 mg Clopidogrel Bisulfate (Plavix) 75 mg PO DAILY [facility] Last Admin: 03/04/17 10:00 Dose: Not Given Glipizide (Glucotrol) 10 mg PO BID [facility] Last Admin: 03/04/17 17:43 Dose: 10 mg Heparin Sodium (Porcine) (Heparin) 5,000 units SC Q12 [facility] Last Admin: 03/04/17 21:34 Dose: 5,000 units Vancomycin HCl 1 gm/ Sodium (Chloride) 250 mls @ 166.7 mls/hr IVPB Q24H [facility] Last Admin: 03/04/17 17:49 Dose: 166.7 mls/hr Doxycycline Hyclate 100 mg/ (Sodium Chloride) 100 mls @ 100 mls/hr IVPB Q12H [facility] Last Admin: 03/04/17 12:44 Dose: 100 mls/hr Insulin Aspart (Novolog) 0 unit SC ACHS JOSE ANTONIO PRN Reason: Protocol Last Admin: 03/04/17 21:34 Dose: Not Given Metformin HCl (Glucophage) 500 mg PO BID [facility] Last Admin: 03/01/17 10:14 Dose: Not Given Metoclopramide HCl (Reglan) 10 mg IVP Q8H PRN PRN Reason: Nausea/Vomiting Last Admin: 03/04/17 03:19 Dose: 10 mg Ondansetron HCl (Zofran Inj) 4 mg IVP Q6 PRN PRN Reason: Nausea/Vomiting Last Admin: 03/04/17 00:31 Dose: 4 mg Pantoprazole Sodium (Protonix Inj) 40 mg IVP DAILY [facility] Last Admin: 03/04/17 12:45 Dose: 40 mg Polyethylene Glycol (Miralax) 17 gm PO BID [facility] Last Admin: 03/04/17 17:43 Dose: 17 gm Rosuvastatin Calcium (Crestor) 5 mg PO HS [facility] Last Admin: 03/04/17 21:33 Dose: 5 mg Fluticasone/Salmeterol (Advair Diskus 250/50) 1 puff INH RQ12 [facility] Last Admin: 03/04/17 19:44 Dose: 1 puff - Labs Labs: 03/04/17 06:59 03/04/17 06:59 - Constitutional Appears: No Acute Distress - Head Exam Head Exam: NORMAL INSPECTION - Eye Exam Eye Exam: EOMI, PERRL - ENT Exam ENT Exam: Normal Oropharynx - Neck Exam Neck Exam: Normal Inspection - Respiratory Exam Respiratory Exam: Clear to Ausculation Bilateral, NORMAL BREATHING PATTERN - Cardiovascular Exam Cardiovascular Exam: REGULAR RHYTHM, +S1, +S2 - GI/Abdominal Exam GI & Abdominal Exam: Soft (lOWER ABDOMINAL DRESSINGS CLEAN AND DRY AND INTACT.) , Normal Bowel Sounds - Extremities Exam Extremities Exam: absent: Calf Tenderness - Neurological Exam Neurological Exam: Alert, Awake, CN II-XII Intact, Oriented x3 - Psychiatric Exam Psychiatric exam: Normal Mood - Skin Skin Exam: Normal Color, Warm Assessment and Plan (1) Leukocytosis Assessment & Plan: LEUKOCYTOSIS IMPROVING. bLOOD CULTURES NEGATIVE FOR 48 HOURS 03/02/17. SOURCE OF LEUKOCYTOSIS ?ENTERITIS/VS ILEUS/VS POSTOPERATIVE RT GROIN COLLECTION S/P FEM-FEM BYPASS AT THE ANASTOMOSIS SITE CONTINUE iv DOXYCYCLINE 100 MG EVERY 24 HOURLY. 03/02/17 CONTINUE VANCOMYCIN 1 G EVERY 24 HOURLY FOR NOW 03/02/17. FOLLOW-UP CULTURES fOLLOW-UP ESOPHAGOGRAM/GI AND SMALL BOWEL SERIES- PENDING REPORT.LEUKOCYTOSIS IS IMPROVING Status: Acute (2) Abdominal pain Status: Acute (3) Nausea Status: Acute (4) Vomiting Status: Acute (5) Anemia Status: Acute (6) Constipation Assessment & Plan: NO BOWEL MOVEMENT FOR 4 DAYS. aS PER GI F/U GI WITH ESOPHAGUS AND SMALL BOWEL SERIES 03/04/17. Status: Acute (7) Hypertension Status: Chronic (8) Diabetes mellitus Status: Chronic (9) PVD (peripheral vascular disease) Status: Acute (10) Status post femorofemoral bypass surgery Status: Acute
--- NOTE | 2017-03-05 07:28 | CP.PCM.PN ---
Subjective - Date & Time of Evaluation Date of Evaluation: 03/05/17 Time of Evaluation: 07:23 - Subjective Subjective: Patient seen and examined, resting comfortably in bed. No acute events overnight, she ate 1/2 sandwich this morning upon awakening due to increasing appetite. Her nausea has resolved and she denies vomiting, diarrhea, fever/ chills. Tolerating PO diet without difficulty. 12 point review of systems performed, negative aside from mentioned above. Objective - Vital Signs/Intake and Output Vital Signs (last 24 hours): Temp Pulse Resp BP Pulse Ox 99.3 F 79 20 111/62 97 03/04/17 23:35 03/04/17 23:35 03/04/17 23:35 03/04/17 23:35 03/04/17 23:35 Intake and Output: 03/05/17 03/05/17 06:59 18:59 Intake Total 240 Balance 240 - Medications Medications: Current Medications Alprazolam (Xanax) 0.25 mg PO DAILY PRN PRN Reason: Anxiety Stop: 03/08/17 01:29 Last Admin: 03/05/17 01:06 Dose: 0.25 mg Amlodipine Besylate (Norvasc) 5 mg PO DAILY [facility] Last Admin: 03/04/17 10:00 Dose: Not Given Aspirin (Ecotrin) 81 mg PO DAILY [facility] Last Admin: 03/04/17 10:23 Dose: Not Given Bisoprolol Fumarate/HCTZ (Ziac 5-6.25 Mg) 1 tab PO DAILY [facility] Last Admin: 03/04/17 13:35 Dose: 1 tab Cilostazol (Pletal) 50 mg PO BID [facility] Last Admin: 03/04/17 17:43 Dose: 50 mg Clopidogrel Bisulfate (Plavix) 75 mg PO DAILY [facility] Last Admin: 03/04/17 10:00 Dose: Not Given Glipizide (Glucotrol) 10 mg PO BID [facility] Last Admin: 03/04/17 17:43 Dose: 10 mg Heparin Sodium (Porcine) (Heparin) 5,000 units SC Q12 [facility] Last Admin: 03/04/17 21:34 Dose: 5,000 units Vancomycin HCl 1 gm/ Sodium (Chloride) 250 mls @ 166.7 mls/hr IVPB Q24H [facility] Last Admin: 03/04/17 17:49 Dose: 166.7 mls/hr Doxycycline Hyclate 100 mg/ (Sodium Chloride) 100 mls @ 100 mls/hr IVPB Q12H [facility] Last Admin: 03/05/17 01:06 Dose: 100 mls/hr Insulin Aspart (Novolog) 0 unit SC ACHS [facility] ANTONIO PRN Reason: Protocol Last Admin: 03/04/17 21:34 Dose: Not Given Metformin HCl (Glucophage) 500 mg PO BID [facility] Last Admin: 03/01/17 10:14 Dose: Not Given Metoclopramide HCl (Reglan) 10 mg IVP Q8H PRN PRN Reason: Nausea/Vomiting Last Admin: 03/04/17 03:19 Dose: 10 mg Ondansetron HCl (Zofran Inj) 4 mg IVP Q6 PRN PRN Reason: Nausea/Vomiting Last Admin: 03/04/17 00:31 Dose: 4 mg Pantoprazole Sodium (Protonix Inj) 40 mg IVP DAILY [facility] Last Admin: 03/04/17 12:45 Dose: 40 mg Polyethylene Glycol (Miralax) 17 gm PO BID [facility] Last Admin: 03/04/17 17:43 Dose: 17 gm Rosuvastatin Calcium (Crestor) 5 mg PO HS [facility] Last Admin: 03/04/17 21:33 Dose: 5 mg Fluticasone/Salmeterol (Advair Diskus 250/50) 1 puff INH RQ12 [facility] Last Admin: 03/04/17 19:44 Dose: 1 puff - Labs Labs: 03/04/17 06:59 03/04/17 06:59 - Constitutional Appears: Non-toxic, No Acute Distress - Head Exam Head Exam: NORMAL INSPECTION - Eye Exam Eye Exam: EOMI, Normal appearance - ENT Exam ENT Exam: Mucous Membranes Moist - Respiratory Exam Respiratory Exam: Clear to Ausculation Bilateral - Cardiovascular Exam Cardiovascular Exam: REGULAR RHYTHM, +S1, +S2 - GI/Abdominal Exam GI & Abdominal Exam: Soft, Normal Bowel Sounds Additional comments: non tender to palpation in four quadrants - Extremities Exam Extremities Exam: Normal Inspection - Skin Skin Exam: Dry, Intact, Normal Color, Warm Assessment and Plan - Assessment and Plan (Free Text) Assessment: COPD DM / HTN PVD s/p fem-fem bypass on plavix Abdominal pain, nausea, vomiting - resolved Plan: - Diet as tolerated - Continue with antibiotic therapy as per ID - Esophagram reviewed by me showing no gross esophageal abnormalities, mild small bowel thickening suggestive of enteritis - Follow up surgical recommendations regarding R groin fluid collection - No ongoing GI issues, will sign off case. Patient given office contact information for outpatient follow up. Please reconsult as necessary, thank you.
[2017-03-05 07:32] LABS: BASO % 0.4 % (0.0-2.0); EOS # 0.2 K/uL (0.0-0.7); EOS % 1.7 % (0.0-4.0); HEMATOCRIT 26.3 % (34.0-47.0); LYMPH # 1.1 K/uL (1.0-4.3); LYMPH % 10.6 % (20.0-40.0); MEAN CORPUSCULAR HGB CONC 33.7 g/dL (33.0-37.0); MEAN PLATELET VOLUME 8.4 fL (7.2-11.7); MONO # 1.2 K/uL (0.0-0.8); MONO % 11.6 % (0.0-10.0); RED CELL DISTRIBUTION WIDTH 15.6 % (11.5-14.5); WHITE BLOOD COUNT 10.3 K/uL (4.8-10.8)
[2017-03-05] MEDS: (Novolog) Insulin Aspart, Recombinant 100 u/ml 10 ml vial SC SCH ×4 (07:48→21:55)
[2017-03-05 07:50] LABS: CHLORIDE 103 mmol/L (98-107); POTASSIUM 3.5 mmol/L (3.6-5.2); SODIUM 135 mmol/L (132-148)
[2017-03-05 07:52] LABS: ALB/GLOB RATIO 1.1 (1.0-2.1); ALKALINE PHOSPHATASE 57 U/L (38-126); ALT/SGPT 20 U/L (9-52); AST/SGOT 17 U/L (14-36); BILIRUBIN,TOTAL 0.8 mg/dL (0.2-1.3); BLOOD UREA NITROGEN 7 mg/dL (7-17); CARBON DIOXIDE 22 mmol/L (22-30); GFR AFRICAN-AMERICAN > 60; TOTAL PROTEIN 5.9 g/dL (6.3-8.3)
[2017-03-05 07:53] LABS: CALCIUM 6.6 mg/dl (8.6-10.4); GLUCOSE,RANDOM 111 mg/dL (65-105); MAGNESIUM 1.2 mg/dL (1.6-2.3); PHOSPHOROUS 1.6 mg/dL (2.5-4.5)
[2017-03-05] MEDS: Bisoprolol-HCTZ 5-6.25 mg Tab PO SCH (09:22)
[2017-03-05] MEDS: POLYETHYLENE GLYCOL 3350 17 GM/Dose PACKET PO SCH ×2 (09:23→17:10)
[2017-03-05] MEDS: Cilostazol 50 mg Tab UD PO SCH ×2 (09:24→17:11)
[2017-03-05] MEDS: Potassium Chloride 20 mEq ER Tab PO SCH (09:42)
--- NOTE | 2017-03-05 10:51 | CP.PCM.PN ---
Subjective - Date & Time of Evaluation Date of Evaluation: 03/05/17 Time of Evaluation: 10:30 - Subjective Subjective: Hospitalist Covering for Dr. 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 ROS: NO more abdominal pain Tolerated breakfast of cereal and tea without n/v or abdominal pain Has not had bowel movement today but had one yesterday without blood/black stools NO other complaints upon FULL ROS EXAM: HEENT: NCA, EOMI, PERRLA, NO cervical lymphadenopathy, NO pharyngeal erythema/ exudate, Oral mucosa and Nasal Turbinates are moist, NO thyromegaly Cardio: Systolic Ejection Murmur Right Second Intercostal Space Respiratory: CTA B/L, NO R/R/W GI: BSx4, Soft, NT, ND, NO HSM, NO guarding/rebound tenderness Extremities: Pulses are strong and equal, Capillary Refill is 2 seconds, NO edema, Bilateral legs and feet are warm with NO cyanosis. Left Groin Surgical Site with single suture and without evidence of celllulitis or exudate. Neurology: CN II through XII are grossly intact Assessment and Plan: 1). Abdominal Pain This has resolved and she is tolerating her diet CT Abdomen/Pelvis 02/28/17 shows fluid collection in the Right Groin at the the level of the Femoral Anastomosis which could represent hematoma/seroma, graft is patent, splenic hamangioma Doxycycline 100 mg IV Q12H Vancomycin 1 gm IV Q24H GI Dr. Betancur took a look at the Esophagus with Small Bowel Follow Through and saw no gross abnormality with small bowel thickening suggestive of enteritis. He would like patient to follow up with him [address]. ID Dr. Valeriy Owen Blood Culture 03/02/17 is Negative To Date WBC is now normal 2). History of PVD (S/P Fem/Fem Bypass) Vascular Surgeon Dr. Rankin ASA 81 mg PO 1x/day Pletal 50 mg PO 1x/day Plavix 75 mg PO 1x/day Crestor 5 mg PO 1x/day 3). Hx DM 2 Glipizide 10 mg PO 2x/day Metformin 500 mg PO 2x/day Aspart ISS Accuchecks 4). Hx HTN Norvasc 5 mg PO 1x/day Bisoprolol/HCTZ 5/6.5 mg PO 1x/day 5). Anemia Secondary To ? F/U Iron Studies Monitor HgB/Hct 6). Hypokalemia KCl 20 mEQ PO x 1 dose Replete Magnesium and Phosphorous 7). Hx COPD Advair 250/50 mcg PO INH Q12H 8). Prophylactic Measure Heparin 5,000 Units SC 1x/day for DVT Prophylaxis Protonix 40 mg PO 1x/day for GI Prophylaxis Florastor 250 mg PO 2x/day but not within 2 hours of antibiotic doses Reglan 10 mg IV Q8H PRN N/V Zofran 4 mg IV Q6H PRN N/V Polyethylene Glycol 17 gm PO 1x/day Xanax 0.25 mg PO 1x/day F/U 03/06/17 morning labs Tuan Burger D.O. Objective - Vital Signs/Intake and Output Vital Signs (last 24 hours): Temp Pulse Resp BP Pulse Ox 99.5 F 84 20 113/46 L 100 03/05/17 07:05 03/05/17 08:10 03/05/17 07:05 03/05/17 07:05 03/05/17 07:05 Intake and Output: 03/05/17 03/05/17 06:59 18:59 Intake Total 240 Balance 240 - Medications Medications: Current Medications Alprazolam (Xanax) 0.25 mg PO DAILY PRN PRN Reason: Anxiety Stop: 03/08/17 01:29 Last Admin: 03/05/17 01:06 Dose: 0.25 mg Amlodipine Besylate (Norvasc) 5 mg PO DAILY [facility] Last Admin: 03/05/17 09:22 Dose: 5 mg Aspirin (Ecotrin) 81 mg PO DAILY [facility] Last Admin: 03/05/17 09:23 Dose: 81 mg Bisoprolol Fumarate/HCTZ (Ziac 5-6.25 Mg) 1 tab PO DAILY [facility] Last Admin: 03/05/17 09:22 Dose: 1 tab Cilostazol (Pletal) 50 mg PO BID [facility] Last Admin: 03/05/17 09:24 Dose: 50 mg Clopidogrel Bisulfate (Plavix) 75 mg PO DAILY [facility] Last Admin: 03/05/17 09:21 Dose: 75 mg Glipizide (Glucotrol) 10 mg PO BID [facility] Last Admin: 03/05/17 09:22 Dose: 10 mg Heparin Sodium (Porcine) (Heparin) 5,000 units SC Q12 [facility] Last Admin: 03/05/17 09:21 Dose: 5,000 units Vancomycin HCl 1 gm/ Sodium (Chloride) 250 mls @ 166.7 mls/hr IVPB Q24H [facility] Last Admin: 03/04/17 17:49 Dose: 166.7 mls/hr Doxycycline Hyclate 100 mg/ (Sodium Chloride) 100 mls @ 100 mls/hr IVPB Q12H [facility] Last Admin: 03/05/17 01:06 Dose: 100 mls/hr Insulin Aspart (Novolog) 0 unit SC ACHS [facility] PRN Reason: Protocol Last Admin: 03/05/17 07:48 Dose: Not Given Metformin HCl (Glucophage) 500 mg PO BID [facility] Last Admin: 03/01/17 10:14 Dose: Not Given Metoclopramide HCl (Reglan) 10 mg IVP Q8H PRN PRN Reason: Nausea/Vomiting Last Admin: 03/04/17 03:19 Dose: 10 mg Ondansetron HCl (Zofran Inj) 4 mg IVP Q6 PRN PRN Reason: Nausea/Vomiting Last Admin: 03/04/17 00:31 Dose: 4 mg Pantoprazole Sodium (Protonix Inj) 40 mg IVP DAILY [facility] Last Admin: 03/05/17 09:21 Dose: 40 mg Polyethylene Glycol (Miralax) 17 gm PO BID [facility] Last Admin: 03/05/17 09:23 Dose: 17 gm Potassium Chloride (K-Dur 20 Meq Er Tab) 20 meq PO DAILY [facility] Last Admin: 03/05/17 09:42 Dose: 20 meq Rosuvastatin Calcium (Crestor) 5 mg PO HS [facility] Last Admin: 03/04/17 21:33 Dose: 5 mg Saccharomyces Boulardii (Florastor) 250 mg PO BID [facility] Fluticasone/Salmeterol (Advair Diskus 250/50) 1 puff INH RQ12 [facility] Last Admin: 03/04/17 19:44 Dose: 1 puff - Labs Labs: 03/05/17 07:23 03/05/17 07:23
[2017-03-05] MEDS: Fluticasone-Salmeterol 250-50mcg Diskus INH SCH ×2 (10:56→19:43)
[2017-03-05] MEDS: Saccharomyces Boulardi 250 mg Cap PO SCH ×2 (11:25→17:11)
[2017-03-05] MEDS ORDERED: Magnesium Sulfate 1 gm in D5W 1 GM/100 ML BAG IVPB ONE (16:39)
[2017-03-05] MEDS: Potassium & Sodium Phosphate PO SCH (17:56)
[2017-03-05] MEDS: Calcium-Vit D 250 mg-125 Units Tab UD PO SCH (20:00)
--- NOTE | 2017-03-05 22:42 | CP.PCM.PN ---
Subjective - Date & Time of Evaluation Date of Evaluation: 03/05/17 Time of Evaluation: 22:42 - Subjective Subjective: afebrile feeling better Denies any further nausea or vomiting States had broccoli-soup and tolerated it. Objective - Vital Signs/Intake and Output Vital Signs (last 24 hours): Temp Pulse Resp BP Pulse Ox 98.2 F 82 20 128/61 100 03/05/17 15:21 03/05/17 15:30 03/05/17 15:21 03/05/17 15:21 03/05/17 15:21 - Medications Medications: Current Medications Acetaminophen (Tylenol 325mg Tab) 650 mg PO Q6 PRN PRN Reason: Pain, moderate (4-7) Last Admin: 03/05/17 21:52 Dose: 650 mg Alprazolam (Xanax) 0.25 mg PO DAILY PRN PRN Reason: Anxiety Stop: 03/08/17 01:29 Last Admin: 03/05/17 01:06 Dose: 0.25 mg Amlodipine Besylate (Norvasc) 5 mg PO DAILY [facility] Last Admin: 03/05/17 09:22 Dose: 5 mg Aspirin (Ecotrin) 81 mg PO DAILY [facility] Last Admin: 03/05/17 09:23 Dose: 81 mg Bisoprolol Fumarate/HCTZ (Ziac 5-6.25 Mg) 1 tab PO DAILY [facility] Last Admin: 03/05/17 09:22 Dose: 1 tab Calcium/Vitamin D (Oscal-D 250 Mg-125 Units Tab) 1 tab PO DAILY@1900 [facility] Last Admin: 03/05/17 20:00 Dose: 1 tab Cilostazol (Pletal) 50 mg PO BID [facility] Last Admin: 03/05/17 17:11 Dose: 50 mg Clopidogrel Bisulfate (Plavix) 75 mg PO DAILY [facility] Last Admin: 03/05/17 09:21 Dose: 75 mg Glipizide (Glucotrol) 10 mg PO BID [facility] Last Admin: 03/05/17 17:10 Dose: 10 mg Heparin Sodium (Porcine) (Heparin) 5,000 units SC Q12 [facility] Last Admin: 03/05/17 21:52 Dose: 5,000 units Vancomycin HCl 1 gm/ Sodium (Chloride) 250 mls @ 166.7 mls/hr IVPB Q24H [facility] Last Admin: 03/05/17 17:35 Dose: 166.7 mls/hr Doxycycline Hyclate 100 mg/ (Sodium Chloride) 100 mls @ 100 mls/hr IVPB Q12H [facility] Last Admin: 03/05/17 13:09 Dose: 100 mls/hr Insulin Aspart (Novolog) 0 unit SC ACHS [facility] PRN Reason: Protocol Last Admin: 03/05/17 21:55 Dose: Not Given Metformin HCl (Glucophage) 500 mg PO BID [facility] Last Admin: 03/01/17 10:14 Dose: Not Given Metoclopramide HCl (Reglan) 10 mg IVP Q8H PRN PRN Reason: Nausea/Vomiting Last Admin: 03/04/17 03:19 Dose: 10 mg Ondansetron HCl (Zofran Inj) 4 mg IVP Q6 PRN PRN Reason: Nausea/Vomiting Last Admin: 03/04/17 00:31 Dose: 4 mg Pantoprazole Sodium (Protonix Inj) 40 mg IVP DAILY [facility] Last Admin: 03/05/17 09:21 Dose: 40 mg Polyethylene Glycol (Miralax) 17 gm PO BID [facility] Last Admin: 03/05/17 17:10 Dose: 17 gm Potassium Chloride (K-Dur 20 Meq Er Tab) 20 meq PO DAILY [facility] Last Admin: 03/05/17 09:42 Dose: 20 meq Potassium Phos/Sodium Phos (Neutra-Phos) 1 pkt PO DAILY [facility] Last Admin: 03/05/17 17:56 Dose: 1 pkt Rosuvastatin Calcium (Crestor) 5 mg PO HS [facility] Last Admin: 03/05/17 21:55 Dose: 5 mg Saccharomyces Boulardii (Florastor) 250 mg PO BID [facility] Last Admin: 03/05/17 17:11 Dose: 250 mg Fluticasone/Salmeterol (Advair Diskus 250/50) 1 puff INH RQ12 [facility] Last Admin: 03/05/17 19:43 Dose: 1 puff - Labs Labs: 03/05/17 07:23 03/05/17 07:23 - Constitutional Appears: No Acute Distress - Head Exam Head Exam: NORMAL INSPECTION - Eye Exam Eye Exam: EOMI, PERRL - ENT Exam ENT Exam: Normal Oropharynx - Neck Exam Neck Exam: Normal Inspection - Respiratory Exam Respiratory Exam: Clear to Ausculation Bilateral - Cardiovascular Exam Cardiovascular Exam: REGULAR RHYTHM, +S1, +S2 - GI/Abdominal Exam GI & Abdominal Exam: Soft, Normal Bowel Sounds. absent: Tenderness - Extremities Exam Extremities Exam: absent: Calf Tenderness, Pedal Edema - Neurological Exam Neurological Exam: Alert, Awake, CN II-XII Intact, Oriented x3, Reflexes Normal - Psychiatric Exam Psychiatric exam: Normal Mood - Skin Skin Exam: Normal Color, Warm Assessment and Plan (1) Leukocytosis Assessment & Plan: LEUKOCYTOSIS IMPROVING.WBC 10.3 bLOOD CULTURES NEGATIVE FOR 48 HOURS 03/02/17. SOURCE OF LEUKOCYTOSIS ?ENTERITIS/VS ILEUS/VS POSTOPERATIVE RT GROIN COLLECTION S/P FEM-FEM BYPASS AT THE ANASTOMOSIS SITE CONTINUE iv DOXYCYCLINE 100 MG EVERY 24 HOURLY. 03/02/17 CONTINUE VANCOMYCIN 1 G EVERY 24 HOURLY FOR NOW 03/02/17. Status: Acute (2) Abdominal pain Assessment & Plan: resolved. Status: Acute (3) Nausea Assessment & Plan: Esophagram ; no gross esophageal abnormalities, mild small bowel thickening suggestive of enteritis patient presently denies any nausea/or vomiting. Tolerating soft diet. Status: Acute (4) Vomiting Assessment & Plan: resolved Status: Acute (5) Anemia Status: Acute (6) Constipation Status: Acute (7) Hypertension Status: Chronic (8) Diabetes mellitus Status: Chronic (9) PVD (peripheral vascular disease) Status: Acute (10) Status post femorofemoral bypass surgery Status: Acute
--- NOTE | 2017-03-06 03:48 | PN ---
DATE: 03/03/2017 SUBJECTIVE: She does not have nausea on that morning. PHYSICAL EXAMINATION: VITAL SIGNS: Blood pressure is 145/67, temperature 99.4, respiratory rate 20 and pulse 80. HEENT: Normal-appearing mucosa of the conjunctivae. NECK: Supple. No JVD, no carotid bruit, no lymph node, no thyromegaly. CHEST AND LUNGS: Bilateral symmetrical expansion, good air exchange. No rales, no rhonchi. CARDIOVASCULAR: PMI not localized. S1, S2. ABDOMEN: Normoactive bowel sounds. No tenderness, no organomegaly, no masses. EXTREMITIES: No cyanosis, no clubbing, no edema. CENTRAL NERVOUS SYSTEM: Alert, awake, oriented x 3. No neurological deficits could be appreciated. ASSESSMENT: 1. Persistent nausea, likely secondary to gastritis versus diabetic gastroparesis. 1. Type 2 diabetes mellitus. 2. Revascularization surgery bifemoral-femoral bypass. PLAN: She will need a GI consult, follow recommendations. Continue current medications. Kd Ledesma MD cc: [id number] TT: 03/06/2017 03:47:53 Confirmation # [id number] Dictation # [id number]
--- NOTE | 2017-03-06 03:58 | PN ---
DATE: 03/04/2017 This is a late entry. SUBJECTIVE: She was not in any cardiopulmonary distress. The patient had upper GI series with small-bowel follow through and it showed moderate gastric and small bowel mucosal thickening suspicious for gastritis or enteritis. . OBJECTIVE: VITAL SIGNS: Blood pressure was 119/63, temperature 98.2, respiratory rate 20 and pulse 80. HEENT: Pupils equal, reactive to light. Normal-appearing mucosa of the conjunctivae, oropharyngeal and nasal membrane mucosa. NECK: Supple. No JVD, no carotid bruit, no lymph node, no thyromegaly. CHEST AND LUNGS: Bilateral symmetrical expansion, good air exchange. No rales , no rhonchi. CARDIOVASCULAR SYSTEM: PMI not localized. S1, S2. No additional sounds. ABDOMEN: Normoactive bowel sounds. No tenderness, no organomegaly, no masses. EXTREMITIES: No cyanosis, no clubbing, no edema. CENTRAL NERVOUS SYSTEM: Alert, awake, oriented x 3. No neurological deficits could be appreciated. ASSESSMENT: 1. Persistent nausea, likely secondary to gastritis. 2. Hypertension. 3. Type 2 diabetes mellitus. PLAN: Continue current management. Advance diet as tolerated. Follow GI recommendations. Kd Ledesma MD cc: [id number] TT: 03/06/2017 03:57:57 Confirmation # [id number] Dictation # [id number] estefany NEVAREZ
[2017-03-06 07:54] LABS: BASO % 0.4 % (0.0-2.0); EOS # 0.2 K/uL (0.0-0.7); EOS % 2.6 % (0.0-4.0); HEMATOCRIT 26.4 % (34.0-47.0); LYMPH % 11.8 % (20.0-40.0); MEAN CELL VOLUME 91.9 fL (81.0-99.0); MEAN CORPUSCULAR HEMOGLOBIN 30.6 pg (27.0-31.0); MEAN CORPUSCULAR HGB CONC 33.3 g/dL (33.0-37.0); MEAN PLATELET VOLUME 8.8 fL (7.2-11.7); RED CELL DISTRIBUTION WIDTH 16.3 % (11.5-14.5); WHITE BLOOD COUNT 8.4 K/uL (4.8-10.8)
[2017-03-06 08:00] LABS: CHLORIDE 105 mmol/L (98-107); SODIUM 138 mmol/L (132-148)
[2017-03-06 08:01] LABS: POTASSIUM 3.5 mmol/L (3.6-5.2)
[2017-03-06 08:03] LABS: ALB/GLOB RATIO 1.1 (1.0-2.1); ALKALINE PHOSPHATASE 72 U/L (38-126); AST/SGOT 33 U/L (14-36); BILIRUBIN,TOTAL 0.6 mg/dL (0.2-1.3); BLOOD UREA NITROGEN 9 mg/dL (7-17); CARBON DIOXIDE 23 mmol/L (22-30); GFR AFRICAN-AMERICAN > 60; GLUCOSE,RANDOM 128 mg/dL (65-105); PHOSPHOROUS 2.4 mg/dL (2.5-4.5); TOTAL PROTEIN 5.8 g/dL (6.3-8.3)
[2017-03-06 08:04] LABS: ALT/SGPT 32 U/L (9-52); CALCIUM 7.1 mg/dl (8.6-10.4); MAGNESIUM 1.3 mg/dL (1.6-2.3)
[2017-03-06] MEDS: (Novolog) Insulin Aspart, Recombinant 100 u/ml 10 ml vial SC SCH ×4 (08:15→21:44)
[2017-03-06] MEDS: Potassium Chloride 20 mEq ER Tab PO SCH (09:14)
[2017-03-06] MEDS: Saccharomyces Boulardi 250 mg Cap PO SCH ×2 (09:15→17:15)
[2017-03-06] MEDS: POLYETHYLENE GLYCOL 3350 17 GM/Dose PACKET PO SCH ×2 (09:16→17:16)
[2017-03-06] MEDS: Bisoprolol-HCTZ 5-6.25 mg Tab PO SCH (09:16)
[2017-03-06] MEDS: Cilostazol 50 mg Tab UD PO SCH ×2 (09:17→17:15)
[2017-03-06] MEDS ORDERED: Magnesium Sulfate 1 gm in D5W 1 GM/100 ML BAG IVPB ONE (10:48)
[2017-03-06] MEDS: Fluticasone-Salmeterol 250-50mcg Diskus INH SCH ×2 (11:06→19:37)
[2017-03-06] MEDS ORDERED: Potassium & Sodium Phosphate PO ONE (11:15)
[2017-03-06] MEDS: Potassium & Sodium Phosphate PO SCH (12:02)
--- NOTE | 2017-03-06 13:41 | CP.PCM.PN ---
Subjective - Date & Time of Evaluation Date of Evaluation: 03/06/17 Time of Evaluation: 13:41 - Subjective Subjective: AFEBRILE. fEELING BETTER. dENIES NAUSEA OR VOMITING. dENIES ABDOMINAL PAIN. Objective - Vital Signs/Intake and Output Vital Signs (last 24 hours): Temp Pulse Resp BP Pulse Ox 98.3 F 83 20 139/55 L 98 03/06/17 07:00 03/06/17 08:19 03/06/17 07:00 03/06/17 07:00 03/06/17 07:00 Intake and Output: 03/06/17 03/06/17 06:59 18:59 Intake Total 340 Balance 340 - Medications Medications: Current Medications Acetaminophen (Tylenol 325mg Tab) 650 mg PO Q6 PRN PRN Reason: Pain, moderate (4-7) Last Admin: 03/05/17 21:52 Dose: 650 mg Alprazolam (Xanax) 0.25 mg PO DAILY PRN PRN Reason: Anxiety Stop: 03/08/17 01:29 Last Admin: 03/05/17 01:06 Dose: 0.25 mg Amlodipine Besylate (Norvasc) 5 mg PO DAILY [facility] Last Admin: 03/06/17 09:14 Dose: 5 mg Aspirin (Ecotrin) 81 mg PO DAILY [facility] Last Admin: 03/06/17 09:15 Dose: 81 mg Bisoprolol Fumarate/HCTZ (Ziac 5-6.25 Mg) 1 tab PO DAILY [facility] Last Admin: 03/06/17 09:16 Dose: 1 tab Calcium/Vitamin D (Oscal-D 250 Mg-125 Units Tab) 1 tab PO DAILY@1900 [facility] Last Admin: 03/05/17 20:00 Dose: 1 tab Cilostazol (Pletal) 50 mg PO BID [facility] Last Admin: 03/06/17 09:17 Dose: 50 mg Clopidogrel Bisulfate (Plavix) 75 mg PO DAILY [facility] Last Admin: 03/06/17 09:15 Dose: 75 mg Glipizide (Glucotrol) 10 mg PO BID [facility] Last Admin: 03/06/17 09:15 Dose: 10 mg Heparin Sodium (Porcine) (Heparin) 5,000 units SC Q12 [facility] Last Admin: 03/06/17 09:14 Dose: 5,000 units Vancomycin HCl 1 gm/ Sodium (Chloride) 250 mls @ 166.7 mls/hr IVPB Q24H [facility] Last Admin: 03/05/17 17:35 Dose: 166.7 mls/hr Doxycycline Hyclate 100 mg/ (Sodium Chloride) 100 mls @ 100 mls/hr IVPB Q12H [facility] Last Admin: 03/06/17 13:38 Dose: 100 mls/hr Insulin Aspart (Novolog) 0 unit SC ACHS [facility] PRN Reason: Protocol Last Admin: 03/06/17 12:25 Dose: 3 unit Metformin HCl (Glucophage) 500 mg PO BID [facility] Last Admin: 03/01/17 10:14 Dose: Not Given Metoclopramide HCl (Reglan) 10 mg IVP Q8H PRN PRN Reason: Nausea/Vomiting Last Admin: 03/04/17 03:19 Dose: 10 mg Ondansetron HCl (Zofran Inj) 4 mg IVP Q6 PRN PRN Reason: Nausea/Vomiting Last Admin: 03/04/17 00:31 Dose: 4 mg Pantoprazole Sodium (Protonix Inj) 40 mg IVP DAILY [facility] Last Admin: 03/06/17 09:14 Dose: 40 mg Polyethylene Glycol (Miralax) 17 gm PO BID [facility] Last Admin: 03/06/17 09:16 Dose: 17 gm Potassium Chloride (K-Dur 20 Meq Er Tab) 20 meq PO DAILY [facility] Last Admin: 03/06/17 09:14 Dose: 20 meq Potassium Phos/Sodium Phos (Neutra-Phos) 1 pkt PO DAILY [facility] Last Admin: 03/06/17 12:02 Dose: 1 pkt Rosuvastatin Calcium (Crestor) 5 mg PO HS [facility] Last Admin: 03/05/17 21:55 Dose: 5 mg Saccharomyces Boulardii (Florastor) 250 mg PO BID [facility] Last Admin: 03/06/17 09:15 Dose: 250 mg Fluticasone/Salmeterol (Advair Diskus 250/50) 1 puff INH RQ12 [facility] Last Admin: 03/06/17 11:06 Dose: Not Given - Labs Labs: 03/06/17 07:36 03/06/17 07:36 - Constitutional Appears: No Acute Distress - Head Exam Head Exam: NORMAL INSPECTION - Eye Exam Eye Exam: EOMI, PERRL - ENT Exam ENT Exam: Normal Oropharynx - Respiratory Exam Respiratory Exam: Clear to Ausculation Bilateral - Cardiovascular Exam Cardiovascular Exam: REGULAR RHYTHM, +S1, +S2 - GI/Abdominal Exam GI & Abdominal Exam: Soft, Normal Bowel Sounds. absent: Tenderness - Extremities Exam Extremities Exam: absent: Calf Tenderness, Pedal Edema - Neurological Exam Neurological Exam: Alert, Awake, CN II-XII Intact - Psychiatric Exam Psychiatric exam: Normal Mood - Skin Skin Exam: Normal Color, Warm Assessment and Plan (1) Leukocytosis Assessment & Plan: leukocytosis is improving. WBC 8.4 H&H of 8.8/26.4. Platelets adequate. DC IV vancomycin. Can switch to by mouth Vibramycin 100 mg twice a day for 5 days.. Case discussed with resident Dr. Wayne Sanchez. Status: Acute (2) Abdominal pain Status: Acute (3) Nausea Assessment & Plan: no nausea or vomiting. Status: Acute (4) Vomiting Status: Acute (5) Anemia Assessment & Plan: watch H&H. Status: Acute (6) Constipation Status: Acute (7) Hypertension Status: Chronic (8) Diabetes mellitus Status: Chronic (9) PVD (peripheral vascular disease) Status: Acute (10) Status post femorofemoral bypass surgery Status: Acute
[2017-03-06] MEDS: Calcium-Vit D 250 mg-125 Units Tab UD PO SCH (18:32)
--- NOTE | 2017-03-06 21:26 | CP.PCM.PN ---
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 Today pt complained of dry cough and stated the pain in her back was better from yesterday. She denies BARRAZA/F/C/CP/SOB/N/V/D or any GI/ symptoms. Objective - Vital Signs/Intake and Output Vital Signs (last 24 hours): Temp Pulse Resp BP Pulse Ox 99.2 F 84 20 123/56 L 96 03/06/17 16:01 03/06/17 16:01 03/06/17 16:01 03/06/17 16:01 03/06/17 16:01 Intake and Output: 03/06/17 03/07/17 18:59 06:59 Intake Total 1200 Balance 1200 - Medications Medications: Current Medications Acetaminophen (Tylenol 325mg Tab) 650 mg PO Q6 PRN PRN Reason: Pain, moderate (4-7) Last Admin: 03/05/17 21:52 Dose: 650 mg Alprazolam (Xanax) 0.25 mg PO DAILY PRN PRN Reason: Anxiety Stop: 03/08/17 01:29 Last Admin: 03/05/17 01:06 Dose: 0.25 mg Amlodipine Besylate (Norvasc) 5 mg PO DAILY [facility] Last Admin: 03/06/17 09:14 Dose: 5 mg Aspirin (Ecotrin) 81 mg PO DAILY [facility] Last Admin: 03/06/17 09:15 Dose: 81 mg Bisoprolol Fumarate/HCTZ (Ziac 5-6.25 Mg) 1 tab PO DAILY [facility] Last Admin: 03/06/17 09:16 Dose: 1 tab Calcium/Vitamin D (Oscal-D 250 Mg-125 Units Tab) 1 tab PO DAILY@1900 [facility] Last Admin: 03/06/17 18:32 Dose: 1 tab Cilostazol (Pletal) 50 mg PO BID [facility] Last Admin: 03/06/17 17:15 Dose: 50 mg Clopidogrel Bisulfate (Plavix) 75 mg PO DAILY [facility] Last Admin: 03/06/17 09:15 Dose: 75 mg Doxycycline Hyclate (Doryx) 100 mg PO Q12H [facility] Stop: 03/11/17 22:01 Glipizide (Glucotrol) 10 mg PO BID [facility] Last Admin: 03/06/17 17:15 Dose: 10 mg Heparin Sodium (Porcine) (Heparin) 5,000 units SC Q12 [facility] Last Admin: 03/06/17 09:14 Dose: 5,000 units Insulin Aspart (Novolog) 0 unit SC ACHS [facility] PRN Reason: Protocol Last Admin: 03/06/17 17:15 Dose: 2 unit Metformin HCl (Glucophage) 500 mg PO BID [facility] Last Admin: 03/01/17 10:14 Dose: Not Given Metoclopramide HCl (Reglan) 10 mg IVP Q8H PRN PRN Reason: Nausea/Vomiting Last Admin: 03/04/17 03:19 Dose: 10 mg Ondansetron HCl (Zofran Inj) 4 mg IVP Q6 PRN PRN Reason: Nausea/Vomiting Last Admin: 03/04/17 00:31 Dose: 4 mg Pantoprazole Sodium (Protonix Inj) 40 mg IVP DAILY [facility] Last Admin: 03/06/17 09:14 Dose: 40 mg Polyethylene Glycol (Miralax) 17 gm PO BID [facility] Last Admin: 03/06/17 17:16 Dose: 17 gm Potassium Chloride (K-Dur 20 Meq Er Tab) 20 meq PO DAILY [facility] Last Admin: 03/06/17 09:14 Dose: 20 meq Potassium Phos/Sodium Phos (Neutra-Phos) 1 pkt PO DAILY [facility] Last Admin: 03/06/17 12:02 Dose: 1 pkt Rosuvastatin Calcium (Crestor) 5 mg PO HS [facility] Last Admin: 03/05/17 21:55 Dose: 5 mg Saccharomyces Boulardii (Florastor) 250 mg PO BID [facility] Last Admin: 03/06/17 17:15 Dose: 250 mg Fluticasone/Salmeterol (Advair Diskus 250/50) 1 puff INH RQ12 [facility] Last Admin: 03/06/17 19:37 Dose: 1 puff - Labs Labs: 03/06/17 07:36 03/06/17 07:36 - Constitutional Appears: Non-toxic, No Acute Distress - Head Exam Head Exam: ATRAUMATIC, NORMOCEPHALIC - Eye Exam Eye Exam: EOMI - ENT Exam ENT Exam: Mucous Membranes Moist, Normal Exam - Respiratory Exam Respiratory Exam: Clear to Ausculation Bilateral, NORMAL BREATHING PATTERN. absent: Wheezes - Cardiovascular Exam Cardiovascular Exam: REGULAR RHYTHM, +S1, +S2. absent: JVD - GI/Abdominal Exam GI & Abdominal Exam: Soft, Normal Bowel Sounds. absent: Tenderness Additional comments: Left Groin Surgical Site with single suture and without evidence of celllulitis or exudate. - Extremities Exam Extremities Exam: Full ROM. absent: Joint Swelling, Pedal Edema, Tenderness - Back Exam Back Exam: absent: CVA tenderness (L), CVA tenderness (R), paraspinal tenderness - Neurological Exam Neurological Exam: Alert, Awake, Oriented x3 - Psychiatric Exam Psychiatric exam: Normal Affect, Normal Mood - Skin Skin Exam: Dry, Intact, Normal Color, Warm Assessment and Plan - Assessment and Plan (Free Text) Plan: 1). Abdominal Pain This has resolved and she is tolerating her diet CT Abdomen/Pelvis 02/28/17 shows fluid collection in the Right Groin at the the level of the Femoral Anastomosis which could represent hematoma/seroma, graft is patent, splenic hamangioma Doxycycline 100 mg IV Q12H stopped per ID start Vibramycin 100mg BID x 5 days Vancomycin 1 gm IV Q24H GI Dr. Betancur took a look at the Esophagus with Small Bowel Follow Through and saw no gross abnormality with small bowel thickening suggestive of enteritis. He would like patient to follow up with him 1 week after discharge. ID Dr. Valeriy Owen Blood Culture 03/02/17 is Negative To Date WBC is now normal 2). History of PVD (S/P Fem/Fem Bypass) Vascular Surgeon Dr. Rankin ASA 81 mg PO 1x/day Pletal 50 mg PO 1x/day Plavix 75 mg PO 1x/day Crestor 5 mg PO 1x/day 3). Hx DM 2 Glipizide 10 mg PO 2x/day Metformin 500 mg PO 2x/day Aspart ISS Accuchecks 4). Hx HTN Norvasc 5 mg PO 1x/day Bisoprolol/HCTZ 5/6.5 mg PO 1x/day 5). Anemia Secondary To ? F/U Iron Studies Monitor HgB/Hct 6). Hypokalemia KCl 20 mEQ PO x 1 dose Replete Magnesium and Phosphorous 7). Hx COPD Advair 250/50 mcg PO INH Q12H 8). Prophylactic Measure Heparin 5,000 Units SC 1x/day for DVT Prophylaxis Protonix 40 mg PO 1x/day for GI Prophylaxis Florastor 250 mg PO 2x/day but not within 2 hours of antibiotic doses Reglan 10 mg IV Q8H PRN N/V Zofran 4 mg IV Q6H PRN N/V Polyethylene Glycol 17 gm PO 1x/day Xanax 0.25 mg PO 1x/day <Byron Winters - Last Filed: 04/15/17 10:16> Objective - Vital Signs/Intake and Output Vital Signs (last 24 hours): Temp Pulse Resp BP Pulse Ox 98.0 F 72 20 133/55 L 97 03/09/17 15:37 03/09/17 15:37 03/09/17 15:37 03/09/17 15:37 03/09/17 15:37 - Labs Labs: 03/08/17 08:26 03/08/17 08:26 Attending/Attestation - Attestation I have personally seen and examined this patient.: Yes I have fully participated in the care of the patient.: Yes I have reviewed all pertinent clinical information, including history, physical exam and plan: Yes Notes (Text): Abdominal Pain possibly due to enteritis. He would like patient to follow up with him 1 week after discharge. History of PVD (S/P Fem/Fem Bypass) Hx DM 2 Hx HTN Anemia workup Hypokalemia HypoMagnesium and HypoPhosphorous
[2017-03-07] MEDS: (Novolog) Insulin Aspart, Recombinant 100 u/ml 10 ml vial SC SCH ×4 (07:30→21:25)
[2017-03-07 07:41] LABS: BASO # 0.1 K/uL (0.0-0.2); BASO % 0.5 % (0.0-2.0); EOS # 0.3 K/uL (0.0-0.7); EOS % 2.2 % (0.0-4.0); HEMATOCRIT 28.2 % (34.0-47.0); LYMPH # 1.3 K/uL (1.0-4.3); LYMPH % 9.3 % (20.0-40.0); MEAN CELL VOLUME 92.8 fL (81.0-99.0); MEAN CORPUSCULAR HEMOGLOBIN 30.8 pg (27.0-31.0); MEAN CORPUSCULAR HGB CONC 33.2 g/dL (33.0-37.0); MEAN PLATELET VOLUME 9.7 fL (7.2-11.7); MONO # 1.8 K/uL (0.0-0.8); MONO % 12.8 % (0.0-10.0); PLATELET COUNT 213 K/uL (130-400); RED CELL DISTRIBUTION WIDTH 16.3 % (11.5-14.5); WHITE BLOOD COUNT 13.8 K/uL (4.8-10.8)
[2017-03-07] MEDS: Fluticasone-Salmeterol 250-50mcg Diskus INH SCH ×2 (09:12→19:47)
[2017-03-07] MEDS: Saccharomyces Boulardi 250 mg Cap PO SCH ×2 (09:25→18:10)
[2017-03-07] MEDS: Bisoprolol-HCTZ 5-6.25 mg Tab PO SCH (09:25)
[2017-03-07] MEDS: Potassium Chloride 20 mEq ER Tab PO SCH (09:27)
[2017-03-07] MEDS: Cilostazol 50 mg Tab UD PO SCH ×2 (09:28→18:10)
[2017-03-07] MEDS: POLYETHYLENE GLYCOL 3350 17 GM/Dose PACKET PO SCH ×2 (09:29→18:10)
[2017-03-07] MEDS: Potassium & Sodium Phosphate PO SCH (09:29)
[2017-03-07] MEDS ORDERED: Magnesium Sulfate 1 gm in D5W 1 GM/100 ML BAG IVPB ONE (09:51)
[2017-03-07 11:06] LABS: EOSINOPHIL 2 % (0-4); LARGE PLATELETS PRESENT; NEUTROPHIL 79 % (50-75); TOTAL CELLS COUNTED 100
[2017-03-07 11:09] LABS: GIANT PLATELETS PRESENT
--- NOTE | 2017-03-07 12:18 | RAD ---
PROCEDURE: Radiographs of the Lumbar Spine. HISTORY: Low back pain. No antecedent history of trauma provided. COMPARISON: No prior. FINDINGS: BONES: Grade 1 mike listhesis L4-L5. Posterior degenerative changes, facet arthropathy identified at this level. DISC SPACES: Unremarkable. OTHER FINDINGS: Calcified nonaneurysmal abdominal aorta. IMPRESSION: Grade 1 anterolisthesis L4-5. No acute findings.
--- NOTE | 2017-03-07 14:30 | CP.PCM.PN ---
Subjective - Date & Time of Evaluation Date of Evaluation: 03/07/17 Time of Evaluation: 14:30 - Subjective Subjective: AFEBRILE FEELS BETTER DENIES N/V /ABDOMINAL PAIN. C/O UPPER BACK PAIN WBC NOTED 13,7 PT SWITCHED TO IV VIBRAMYCIN. Objective - Vital Signs/Intake and Output Vital Signs (last 24 hours): Temp Pulse Resp BP Pulse Ox 98.5 F 91 H 20 138/62 95 03/06/17 23:40 03/07/17 00:00 03/06/17 23:40 03/06/17 23:40 03/06/17 23:40 Intake and Output: 03/07/17 03/07/17 06:59 18:59 Intake Total 420 Balance 420 - Medications Medications: Current Medications Acetaminophen (Tylenol 325mg Tab) 650 mg PO Q6 PRN PRN Reason: Pain, moderate (4-7) Last Admin: 03/07/17 09:49 Dose: 650 mg Alprazolam (Xanax) 0.25 mg PO DAILY PRN PRN Reason: Anxiety Stop: 03/08/17 01:29 Last Admin: 03/05/17 01:06 Dose: 0.25 mg Amlodipine Besylate (Norvasc) 5 mg PO DAILY [facility] Last Admin: 03/07/17 09:26 Dose: 5 mg Aspirin (Ecotrin) 81 mg PO DAILY [facility] Last Admin: 03/07/17 09:26 Dose: 81 mg Bisoprolol Fumarate/HCTZ (Ziac 5-6.25 Mg) 1 tab PO DAILY [facility] Last Admin: 03/07/17 09:25 Dose: 1 tab Calcium/Vitamin D (Oscal-D 250 Mg-125 Units Tab) 1 tab PO DAILY@1900 [facility] Last Admin: 03/06/17 18:32 Dose: 1 tab Cilostazol (Pletal) 50 mg PO BID [facility] Last Admin: 03/07/17 09:28 Dose: 50 mg Clopidogrel Bisulfate (Plavix) 75 mg PO DAILY [facility] Last Admin: 03/07/17 09:27 Dose: 75 mg Doxycycline Hyclate (Doryx) 100 mg PO Q12H [facility] Stop: 03/11/17 22:01 Last Admin: 03/07/17 09:28 Dose: 100 mg Glipizide (Glucotrol) 10 mg PO BID [facility] Last Admin: 03/07/17 09:27 Dose: 10 mg Heparin Sodium (Porcine) (Heparin) 5,000 units SC Q12 [facility] Last Admin: 03/07/17 09:27 Dose: 5,000 units Insulin Aspart (Novolog) 0 unit SC ACHS [facility] PRN Reason: Protocol Last Admin: 03/07/17 12:30 Dose: 1 unit Metformin HCl (Glucophage) 500 mg PO BID [facility] Last Admin: 03/01/17 10:14 Dose: Not Given Metoclopramide HCl (Reglan) 10 mg IVP Q8H PRN PRN Reason: Nausea/Vomiting Last Admin: 03/04/17 03:19 Dose: 10 mg Ondansetron HCl (Zofran Inj) 4 mg IVP Q6 PRN PRN Reason: Nausea/Vomiting Last Admin: 03/04/17 00:31 Dose: 4 mg Pantoprazole Sodium (Protonix Inj) 40 mg IVP DAILY [facility] Last Admin: 03/07/17 09:26 Dose: 40 mg Polyethylene Glycol (Miralax) 17 gm PO BID [facility] Last Admin: 03/07/17 09:29 Dose: 17 gm Potassium Chloride (K-Dur 20 Meq Er Tab) 20 meq PO DAILY [facility] Last Admin: 03/07/17 09:27 Dose: 20 meq Potassium Phos/Sodium Phos (Neutra-Phos) 1 pkt PO DAILY [facility] Last Admin: 03/07/17 09:29 Dose: 1 pkt Rosuvastatin Calcium (Crestor) 5 mg PO HS [facility] Last Admin: 03/06/17 21:38 Dose: 5 mg Saccharomyces Boulardii (Florastor) 250 mg PO BID [facility] Last Admin: 03/07/17 09:25 Dose: 250 mg Fluticasone/Salmeterol (Advair Diskus 250/50) 1 puff INH RQ12 [facility] Last Admin: 03/07/17 09:12 Dose: 1 puff - Labs Labs: 03/07/17 07:16 03/06/17 07:36 - Constitutional Appears: No Acute Distress - Head Exam Head Exam: NORMAL INSPECTION - Eye Exam Eye Exam: EOMI, PERRL - ENT Exam ENT Exam: Normal Oropharynx - Neck Exam Neck Exam: Normal Inspection - Respiratory Exam Respiratory Exam: Clear to Ausculation Bilateral, NORMAL BREATHING PATTERN - Cardiovascular Exam Cardiovascular Exam: REGULAR RHYTHM, +S1 - GI/Abdominal Exam GI & Abdominal Exam: Soft, Normal Bowel Sounds. absent: Tenderness (BOTH GROINS INCISION SITE HEALING. NO DRAINAGE NOTED.) - Extremities Exam Extremities Exam: absent: Calf Tenderness, Full ROM - Neurological Exam Neurological Exam: Alert, Awake, CN II-XII Intact, Oriented x3 - Skin Skin Exam: Normal Color, Warm Assessment and Plan (1) Leukocytosis Assessment & Plan: OFF IV vancomycin. ON IV Vibramycin 100 mg twice a day for 5 days. F/U CBC W DIFF IN AM . Case discussed with STAFF. Status: Acute (2) Abdominal pain Status: Acute (3) Nausea Status: Acute (4) Vomiting Status: Acute (5) Anemia Status: Acute (6) Constipation Status: Acute (7) Hypertension Status: Chronic (8) Diabetes mellitus Status: Chronic (9) PVD (peripheral vascular disease) Status: Acute (10) Status post femorofemoral bypass surgery Assessment & Plan: LOCAL B/L GROIN WOUND CARE. Status: Acute
[2017-03-07 14:58] LABS: CHLORIDE 97 mmol/L (98-107); SODIUM 136 mmol/L (132-148)
[2017-03-07 15:00] LABS: ALB/GLOB RATIO 1.1 (1.0-2.1); AST/SGOT 27 U/L (14-36); BILIRUBIN,TOTAL 0.6 mg/dL (0.2-1.3); CARBON DIOXIDE 21 mmol/L (22-30); GFR AFRICAN-AMERICAN > 60; TOTAL PROTEIN 6.9 g/dL (6.3-8.3)
[2017-03-07 15:01] LABS: ALKALINE PHOSPHATASE 84 U/L (38-126); ALT/SGPT 36 U/L (9-52); BLOOD UREA NITROGEN 7 mg/dL (7-17); GLUCOSE,RANDOM 174 mg/dL (65-105); MAGNESIUM 1.1 mg/dL (1.6-2.3); PHOSPHOROUS 3.8 mg/dL (2.5-4.5)
[2017-03-07] MEDS: Magnesium Sulfate 1 gm in D5W 1 GM/100 ML BAG IVPB SCH ×2 (17:04→18:11)
[2017-03-07] MEDS ORDERED: Magnesium Sulfate 454 g Box PO SCH ×2 (18:00)
[2017-03-07] MEDS: Calcium-Vit D 250 mg-125 Units Tab UD PO SCH (18:10)
[2017-03-07] MEDS: Magnesium Oxide 400 mg Tab UD PO SCH (19:00)
--- NOTE | 2017-03-07 19:38 | CP.PCM.PN ---
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 Today pt complained of new lower back pain on the left. Pt. was also found to have increased in WBC, Xray and CT of lower back ordered. She denies BRARAZA/F/C/CP/SOB/N /V/D or any GI/ symptoms. Objective - Vital Signs/Intake and Output Vital Signs (last 24 hours): Temp Pulse Resp BP Pulse Ox 99.1 F 85 20 136/61 98 03/07/17 17:19 03/07/17 17:19 03/07/17 17:19 03/07/17 17:19 03/07/17 17:19 Intake and Output: 03/07/17 03/08/17 18:59 06:59 Intake Total 480 Balance 480 - Medications Medications: Current Medications Acetaminophen (Tylenol 325mg Tab) 650 mg PO Q6 PRN PRN Reason: Pain, moderate (4-7) Last Admin: 03/07/17 09:49 Dose: 650 mg Alprazolam (Xanax) 0.25 mg PO DAILY PRN PRN Reason: Anxiety Stop: 03/08/17 01:29 Last Admin: 03/05/17 01:06 Dose: 0.25 mg Amlodipine Besylate (Norvasc) 5 mg PO DAILY [facility] Last Admin: 03/07/17 09:26 Dose: 5 mg Aspirin (Ecotrin) 81 mg PO DAILY [facility] Last Admin: 03/07/17 09:26 Dose: 81 mg Bisoprolol Fumarate/HCTZ (Ziac 5-6.25 Mg) 1 tab PO DAILY [facility] Last Admin: 03/07/17 09:25 Dose: 1 tab Calcium/Vitamin D (Oscal-D 250 Mg-125 Units Tab) 1 tab PO DAILY@1900 [facility] Last Admin: 03/07/17 18:10 Dose: 1 tab Cilostazol (Pletal) 50 mg PO BID [facility] Last Admin: 03/07/17 18:10 Dose: 50 mg Clopidogrel Bisulfate (Plavix) 75 mg PO DAILY [facility] Last Admin: 03/07/17 09:27 Dose: 75 mg Glipizide (Glucotrol) 10 mg PO BID [facility] Last Admin: 03/07/17 18:10 Dose: 10 mg Heparin Sodium (Porcine) (Heparin) 5,000 units SC Q12 [facility] Last Admin: 03/07/17 09:27 Dose: 5,000 units Doxycycline Hyclate 100 mg/ (Sodium Chloride) 100 mls @ 100 mls/hr IVPB Q12H [facility] Insulin Aspart (Novolog) 0 unit SC ACHS [facility] PRN Reason: Protocol Last Admin: 03/07/17 18:11 Dose: 4 unit Magnesium Oxide (Mag-Ox) 400 mg PO BID [facility] Last Admin: 03/07/17 19:00 Dose: Not Given Metformin HCl (Glucophage) 500 mg PO BID [facility] Last Admin: 03/01/17 10:14 Dose: Not Given Metoclopramide HCl (Reglan) 10 mg IVP Q8H PRN PRN Reason: Nausea/Vomiting Last Admin: 03/04/17 03:19 Dose: 10 mg Ondansetron HCl (Zofran Inj) 4 mg IVP Q6 PRN PRN Reason: Nausea/Vomiting Last Admin: 03/04/17 00:31 Dose: 4 mg Pantoprazole Sodium (Protonix Inj) 40 mg IVP DAILY [facility] Last Admin: 03/07/17 09:26 Dose: 40 mg Polyethylene Glycol (Miralax) 17 gm PO BID [facility] Last Admin: 03/07/17 18:10 Dose: Not Given Potassium Chloride (K-Dur 20 Meq Er Tab) 20 meq PO DAILY [facility] Last Admin: 03/07/17 09:27 Dose: 20 meq Potassium Phos/Sodium Phos (Neutra-Phos) 1 pkt PO DAILY [facility] Last Admin: 03/07/17 09:29 Dose: 1 pkt Rosuvastatin Calcium (Crestor) 5 mg PO HS [facility] Last Admin: 03/06/17 21:38 Dose: 5 mg Saccharomyces Boulardii (Florastor) 250 mg PO BID [facility] Last Admin: 03/07/17 18:10 Dose: 250 mg Fluticasone/Salmeterol (Advair Diskus 250/50) 1 puff INH RQ12 [facility] Last Admin: 03/07/17 09:12 Dose: 1 puff - Labs Labs: 03/07/17 07:16 03/07/17 14:25 - Constitutional Appears: Non-toxic, No Acute Distress - Head Exam Head Exam: ATRAUMATIC, NORMAL INSPECTION, NORMOCEPHALIC - Eye Exam Eye Exam: EOMI - ENT Exam ENT Exam: Mucous Membranes Moist - Neck Exam Neck Exam: Full ROM, Normal Inspection. absent: Lymphadenopathy - Respiratory Exam Respiratory Exam: Clear to Ausculation Bilateral, NORMAL BREATHING PATTERN - Cardiovascular Exam Cardiovascular Exam: REGULAR RHYTHM, +S1, +S2, Murmur - GI/Abdominal Exam GI & Abdominal Exam: Soft, Normal Bowel Sounds. absent: Tenderness - Extremities Exam Extremities Exam: Full ROM, Normal Capillary Refill, Normal Inspection. absent : Joint Swelling, Pedal Edema - Back Exam Back Exam: paraspinal tenderness (left lumbar area) - Neurological Exam Neurological Exam: Alert, Awake, CN II-XII Intact, Normal Gait, Oriented x3 - Psychiatric Exam Psychiatric exam: Normal Affect, Normal Mood - Skin Skin Exam: Dry, Intact, Normal Color, Warm Assessment and Plan - Assessment and Plan (Free Text) Plan: 1). Abdominal Pain This has resolved and she is tolerating her diet CT Abdomen/Pelvis 02/28/17 shows fluid collection in the Right Groin at the the level of the Femoral Anastomosis which could represent hematoma/seroma, graft is patent, splenic hamangioma Doxycycline 100 mg IV Q12H started will start Vibramycin 100mg BID x 5 days on d/c Vancomycin 1 gm IV Q24H GI Dr. Betancur took a look at the Esophagus with Small Bowel Follow Through and saw no gross abnormality with small bowel thickening suggestive of enteritis. He would like patient to follow up with her 1 week after discharge. ID Dr. Valeriy Owen Blood Culture 03/02/17 is Negative To Date WBC is now normal 2). History of PVD (S/P Fem/Fem Bypass) Vascular Surgeon Dr. Rankin ASA 81 mg PO 1x/day Pletal 50 mg PO 1x/day Plavix 75 mg PO 1x/day Crestor 5 mg PO 1x/day 3). Hx DM 2 Glipizide 10 mg PO 2x/day Metformin 500 mg PO 2x/day Aspart ISS Accuchecks 4). Hx HTN Norvasc 5 mg PO 1x/day Bisoprolol/HCTZ 5/6.5 mg PO 1x/day 5). Anemia Secondary To ? Iron Studies -Ferritin normal -Fe % 12 low Monitor HgB/Hct 6). Hypokalemia Replete Magnesium and Phosphorous Gave NeutraPhos and Mag Oxide 7). Hx COPD Advair 250/50 mcg PO INH Q12H 8) New Onset Back Pain Xray Lumbar Grade 1 anterolisthesis L4-5, No acute findings CT Lumbar spine w/o contrast ordered 9) Leukocytosis Doxycycline 100 mg IV Q12H started 10). Prophylactic Measure Heparin 5,000 Units SC 1x/day for DVT Prophylaxis Protonix 40 mg PO 1x/day for GI Prophylaxis Florastor 250 mg PO 2x/day but not within 2 hours of antibiotic doses Reglan 10 mg IV Q8H PRN N/V Zofran 4 mg IV Q6H PRN N/V Polyethylene Glycol 17 gm PO 1x/day Xanax 0.25 mg PO 1x/day <Byron Winters - Last Filed: 04/15/17 16:11> Objective - Vital Signs/Intake and Output Vital Signs (last 24 hours): Temp Pulse Resp BP Pulse Ox 98.0 F 72 20 133/55 L 97 03/09/17 15:37 03/09/17 15:37 03/09/17 15:37 03/09/17 15:37 03/09/17 15:37 - Labs Labs: 03/08/17 08:26 03/08/17 08:26 Attending/Attestation - Attestation I have personally seen and examined this patient.: Yes I have fully participated in the care of the patient.: Yes I have reviewed all pertinent clinical information, including history, physical exam and plan: Yes Notes (Text): Abdominal Pain possibly due to enteritis. He would like patient to follow up with him 1 week after discharge. History of PVD (S/P Fem/Fem Bypass) Hx DM 2 Hx HTN Anemia workup Hypokalemia HypoMagnesium and HypoPhosphorous
[2017-03-07] MEDS ORDERED: Simethicone 80 mg Chewtab PO ONE (23:07)
[2017-03-08] MEDS: (Novolog) Insulin Aspart, Recombinant 100 u/ml 10 ml vial SC SCH ×4 (07:54→21:50)
[2017-03-08 08:38] LABS: BASO # 0.1 K/uL (0.0-0.2); BASO % 0.6 % (0.0-2.0); EOS # 0.2 K/uL (0.0-0.7); EOS % 1.7 % (0.0-4.0); HEMATOCRIT 28.1 % (34.0-47.0); LYMPH # 1.2 K/uL (1.0-4.3); LYMPH % 10.8 % (20.0-40.0); MEAN CELL VOLUME 91.6 fL (81.0-99.0); MEAN CORPUSCULAR HEMOGLOBIN 30.5 pg (27.0-31.0); MEAN CORPUSCULAR HGB CONC 33.3 g/dL (33.0-37.0); MEAN PLATELET VOLUME 9.3 fL (7.2-11.7); MONO # 1.3 K/uL (0.0-0.8); MONO % 11.1 % (0.0-10.0); RED CELL DISTRIBUTION WIDTH 16.2 % (11.5-14.5); WHITE BLOOD COUNT 11.5 K/uL (4.8-10.8)
[2017-03-08] MEDS: Fluticasone-Salmeterol 250-50mcg Diskus INH SCH ×2 (08:49→19:39)
[2017-03-08] MEDS: Potassium Chloride 20 mEq ER Tab PO SCH (09:01)
[2017-03-08] MEDS: Potassium & Sodium Phosphate PO SCH (09:02)
[2017-03-08] MEDS: Saccharomyces Boulardi 250 mg Cap PO SCH ×2 (09:02→17:33)
[2017-03-08] MEDS: Magnesium Oxide 400 mg Tab UD PO SCH ×2 (09:02→17:33)
[2017-03-08 09:03] LABS: CHLORIDE 97 mmol/L (98-107); POTASSIUM 3.6 mmol/L (3.6-5.2); SODIUM 138 mmol/L (132-148)
[2017-03-08] MEDS: POLYETHYLENE GLYCOL 3350 17 GM/Dose PACKET PO SCH ×2 (09:03→17:34)
[2017-03-08] MEDS: Cilostazol 50 mg Tab UD PO SCH ×2 (09:04→17:35)
[2017-03-08 09:05] LABS: ALB/GLOB RATIO 1.1 (1.0-2.1); ALKALINE PHOSPHATASE 94 U/L (38-126); ALT/SGPT 32 U/L (9-52); AST/SGOT 21 U/L (14-36); BILIRUBIN,TOTAL 0.6 mg/dL (0.2-1.3); BLOOD UREA NITROGEN 6 mg/dL (7-17); CARBON DIOXIDE 25 mmol/L (22-30); GFR AFRICAN-AMERICAN > 60; GLUCOSE,RANDOM 122 mg/dL (65-105); PHOSPHOROUS 4.4 mg/dL (2.5-4.5); TOTAL PROTEIN 6.9 g/dL (6.3-8.3)
[2017-03-08] MEDS: Bisoprolol-HCTZ 5-6.25 mg Tab PO SCH (09:05)
[2017-03-08 09:06] LABS: CALCIUM 9.6 mg/dl (8.6-10.4); MAGNESIUM 1.4 mg/dL (1.6-2.3)
--- NOTE | 2017-03-08 12:49 | CT ---
PROCEDURE: CT Lumbar Spine without contrast HISTORY: Back Pain Left Lumbar paraspinal COMPARISON: None. TECHNIQUE: Axial computed tomography images were obtained of the lumbar spine without the use of intravenous contrast. Coronal and sagittal reformatted images were created and reviewed. Radiation dose: Total exam DLP = mGy-cm. This CT exam was performed using one or more of the following dose reduction techniques: Automated exposure control, adjustment of the mA and/or kV according to patient size, and/or use of iterative reconstruction technique. FINDINGS: VERTEBRAE: Unremarkable. No fracture. Normal alignment. DISCS/SPINAL CANAL/NEURAL FORAMINA: Multilevel facet arthropathy identified without evidence of canal stenosis. No focal herniated disc identified. L1-2: Unremarkable. L2-3: Unremarkable. L3-4: Unremarkable. L4-5: Grade 1 anterolisthesis. Associated spondylolysis. Bilateral pars defects identified at this level. 7.25 mm of spondylolisthesis noted. L5-S1: Unremarkable. PARASPINAL SOFT TISSUES: Unremarkable. OTHER FINDINGS: Calcified nonaneurysmal abdominal aorta. IMPRESSION: Grade 1 anterolisthesis L4-L5. Associated spondylolysis. Mild multilevel degenerative change without evidence of spinal stenosis, significant annular bulging or focal herniated disc. Otherwise no acute/significant findings.
[2017-03-08] MEDS: Calcium-Vit D 250 mg-125 Units Tab UD PO SCH (19:15)
--- NOTE | 2017-03-08 20:19 | CP.PCM.PN ---
Subjective - Date & Time of Evaluation Date of Evaluation: 03/08/17 Time of Evaluation: 20:19 - Subjective Subjective: AFEBRILE FEELS BETTER DENIES N/V /ABDOMINAL PAIN. TOLERATING IV VIBRAMYCIN WBC IMPROVING NOW 11.5 wbc XRAY BACK/AND CT LUMBOSACRAL SPINE NOTED -DEG DISC DISEASE Objective - Vital Signs/Intake and Output Vital Signs (last 24 hours): Temp Pulse Resp BP Pulse Ox 97.9 F 80 20 139/64 96 03/08/17 16:05 03/08/17 16:05 03/08/17 16:05 03/08/17 16:05 03/08/17 16:05 Intake and Output: 03/08/17 03/09/17 18:59 06:59 Intake Total 450 Balance 450 - Medications Medications: Current Medications Acetaminophen (Tylenol 325mg Tab) 650 mg PO Q6 PRN PRN Reason: Pain, moderate (4-7) Last Admin: 03/08/17 14:05 Dose: 650 mg Amlodipine Besylate (Norvasc) 5 mg PO DAILY [facility] Last Admin: 03/08/17 09:02 Dose: 5 mg Aspirin (Ecotrin) 81 mg PO DAILY [facility] Last Admin: 03/08/17 09:02 Dose: 81 mg Bisoprolol Fumarate/HCTZ (Ziac 5-6.25 Mg) 1 tab PO DAILY [facility] Last Admin: 03/08/17 09:05 Dose: 1 tab Calcium/Vitamin D (Oscal-D 250 Mg-125 Units Tab) 1 tab PO DAILY@1900 [facility] Last Admin: 03/08/17 19:15 Dose: 1 tab Cilostazol (Pletal) 50 mg PO BID [facility] Last Admin: 03/08/17 17:35 Dose: 50 mg Clopidogrel Bisulfate (Plavix) 75 mg PO DAILY [facility] Last Admin: 03/08/17 09:02 Dose: 75 mg Glipizide (Glucotrol) 10 mg PO BID [facility] Last Admin: 03/08/17 17:33 Dose: 10 mg Doxycycline Hyclate 100 mg/ (Sodium Chloride) 100 mls @ 100 mls/hr IVPB Q12H [facility] Last Admin: 03/08/17 19:08 Dose: 100 mls/hr Insulin Aspart (Novolog) 0 unit SC ACHS [facility] PRN Reason: Protocol Last Admin: 03/08/17 17:46 Dose: 2 unit Magnesium Oxide (Mag-Ox) 400 mg PO BID [facility] Last Admin: 03/08/17 17:33 Dose: 400 mg Metformin HCl (Glucophage) 500 mg PO BID [facility] Last Admin: 03/01/17 10:14 Dose: Not Given Metoclopramide HCl (Reglan) 10 mg IVP Q8H PRN PRN Reason: Nausea/Vomiting Last Admin: 03/04/17 03:19 Dose: 10 mg Ondansetron HCl (Zofran Inj) 4 mg IVP Q6 PRN PRN Reason: Nausea/Vomiting Last Admin: 03/04/17 00:31 Dose: 4 mg Pantoprazole Sodium (Protonix Ec Tab) 40 mg PO DAILY [facility] Polyethylene Glycol (Miralax) 17 gm PO BID [facility] Last Admin: 03/08/17 17:34 Dose: Not Given Potassium Chloride (K-Dur 20 Meq Er Tab) 20 meq PO DAILY [facility] Last Admin: 03/08/17 09:01 Dose: 20 meq Potassium Phos/Sodium Phos (Neutra-Phos) 1 pkt PO DAILY [facility] Last Admin: 03/08/17 09:02 Dose: 1 pkt Rosuvastatin Calcium (Crestor) 5 mg PO HS [facility] Last Admin: 03/07/17 21:10 Dose: 5 mg Saccharomyces Boulardii (Florastor) 250 mg PO BID [facility] Last Admin: 03/08/17 17:33 Dose: 250 mg Fluticasone/Salmeterol (Advair Diskus 250/50) 1 puff INH RQ12 [facility] Last Admin: 03/08/17 19:39 Dose: 1 puff - Labs Labs: 03/08/17 08:26 03/08/17 08:26 - Constitutional Appears: No Acute Distress - Head Exam Head Exam: NORMAL INSPECTION - Eye Exam Eye Exam: EOMI, PERRL - ENT Exam ENT Exam: Normal Oropharynx - Neck Exam Neck Exam: Normal Inspection - Respiratory Exam Respiratory Exam: Clear to Ausculation Bilateral - Cardiovascular Exam Cardiovascular Exam: REGULAR RHYTHM, +S1, +S2 - GI/Abdominal Exam GI & Abdominal Exam: Soft, Normal Bowel Sounds - Extremities Exam Extremities Exam: Pedal Edema. absent: Calf Tenderness Assessment and Plan (1) Leukocytosis Assessment & Plan: ON IV Vibramycin 100 mg twice a day . CAN SWITCH TO BY MOUTH 100 MG TWICE A DAY FOR 5 DAYS WHEN READY FOR DISCHARGE. F/U CBC W DIFF IN AM . Case discussed with STAFF. Status: Acute (2) Abdominal pain Status: Acute (3) Nausea Status: Acute (4) Vomiting Status: Acute (5) Anemia Status: Acute (6) Constipation Status: Acute (7) Hypertension Status: Chronic (8) Diabetes mellitus Status: Chronic (9) PVD (peripheral vascular disease) Status: Acute (10) Status post femorofemoral bypass surgery Status: Acute
--- NOTE | 2017-03-08 20:54 | CP.PCM.PN ---
<Wayne Sanchez - Last Filed: 03/08/17 20:50> Subjective - Date & Time of Evaluation Date of Evaluation: 03/08/17 Time of Evaluation: 07:40 - Subjective Subjective: 72 year old female who is S/P Left Fem/Fem bypass for gangrene of toe and presented with complaints of diffuse abdominal pain with nausea/vomiting. Today her new lower back pain that started yesterday remains unchanged. CT was negative for any acute cause. Pt. WBC improved to 11.5. She denies BARRAZA/F/C/CP/SOB /N/V/D or any GI/ symptoms. Objective - Vital Signs/Intake and Output Vital Signs (last 24 hours): Temp Pulse Resp BP Pulse Ox 97.9 F 80 20 139/64 96 03/08/17 16:05 03/08/17 16:05 03/08/17 16:05 03/08/17 16:05 03/08/17 16:05 Intake and Output: 03/08/17 03/09/17 18:59 06:59 Intake Total 450 Balance 450 - Medications Medications: Current Medications Acetaminophen (Tylenol 325mg Tab) 650 mg PO Q6 PRN PRN Reason: Pain, moderate (4-7) Last Admin: 03/08/17 14:05 Dose: 650 mg Amlodipine Besylate (Norvasc) 5 mg PO DAILY [facility] Last Admin: 03/08/17 09:02 Dose: 5 mg Aspirin (Ecotrin) 81 mg PO DAILY [facility] Last Admin: 03/08/17 09:02 Dose: 81 mg Bisoprolol Fumarate/HCTZ (Ziac 5-6.25 Mg) 1 tab PO DAILY [facility] Last Admin: 03/08/17 09:05 Dose: 1 tab Calcium/Vitamin D (Oscal-D 250 Mg-125 Units Tab) 1 tab PO DAILY@1900 [facility] Last Admin: 03/08/17 19:15 Dose: 1 tab Cilostazol (Pletal) 50 mg PO BID [facility] Last Admin: 03/08/17 17:35 Dose: 50 mg Clopidogrel Bisulfate (Plavix) 75 mg PO DAILY [facility] Last Admin: 03/08/17 09:02 Dose: 75 mg Glipizide (Glucotrol) 10 mg PO BID [facility] Last Admin: 03/08/17 17:33 Dose: 10 mg Doxycycline Hyclate 100 mg/ (Sodium Chloride) 100 mls @ 100 mls/hr IVPB Q12H [facility] Last Admin: 03/08/17 19:08 Dose: 100 mls/hr Insulin Aspart (Novolog) 0 unit SC ACHS [facility] PRN Reason: Protocol Last Admin: 03/08/17 17:46 Dose: 2 unit Magnesium Oxide (Mag-Ox) 400 mg PO BID [facility] Last Admin: 03/08/17 17:33 Dose: 400 mg Metformin HCl (Glucophage) 500 mg PO BID [facility] Last Admin: 03/01/17 10:14 Dose: Not Given Metoclopramide HCl (Reglan) 10 mg IVP Q8H PRN PRN Reason: Nausea/Vomiting Last Admin: 03/04/17 03:19 Dose: 10 mg Ondansetron HCl (Zofran Inj) 4 mg IVP Q6 PRN PRN Reason: Nausea/Vomiting Last Admin: 03/04/17 00:31 Dose: 4 mg Pantoprazole Sodium (Protonix Ec Tab) 40 mg PO DAILY [facility] Polyethylene Glycol (Miralax) 17 gm PO BID [facility] Last Admin: 03/08/17 17:34 Dose: Not Given Potassium Chloride (K-Dur 20 Meq Er Tab) 20 meq PO DAILY [facility] Last Admin: 03/08/17 09:01 Dose: 20 meq Potassium Phos/Sodium Phos (Neutra-Phos) 1 pkt PO DAILY [facility] Last Admin: 03/08/17 09:02 Dose: 1 pkt Rosuvastatin Calcium (Crestor) 5 mg PO HS [facility] Last Admin: 03/07/17 21:10 Dose: 5 mg Saccharomyces Boulardii (Florastor) 250 mg PO BID [facility] Last Admin: 03/08/17 17:33 Dose: 250 mg Fluticasone/Salmeterol (Advair Diskus 250/50) 1 puff INH RQ12 [facility] Last Admin: 03/08/17 19:39 Dose: 1 puff - Labs Labs: 03/08/17 08:26 03/08/17 08:26 - Constitutional Appears: Non-toxic, No Acute Distress - Head Exam Head Exam: ATRAUMATIC, NORMOCEPHALIC - Eye Exam Eye Exam: EOMI - ENT Exam ENT Exam: Mucous Membranes Moist - Respiratory Exam Respiratory Exam: Clear to Ausculation Bilateral, NORMAL BREATHING PATTERN. absent: Rhonchi, Wheezes - Cardiovascular Exam Cardiovascular Exam: REGULAR RHYTHM, RRR, +S1, +S2 - GI/Abdominal Exam GI & Abdominal Exam: Soft, Normal Bowel Sounds. absent: Tenderness - Back Exam Back Exam: paraspinal tenderness (left lumbar), tenderness. absent: CVA tenderness (L), CVA tenderness (R), rash noted - Neurological Exam Neurological Exam: Alert, Awake, Normal Gait, Oriented x3 - Psychiatric Exam Psychiatric exam: Normal Affect, Normal Mood - Skin Skin Exam: Dry, Intact, Normal Color, Warm Assessment and Plan - Assessment and Plan (Free Text) Plan: 1). Abdominal Pain This has resolved and she is tolerating her diet CT Abdomen/Pelvis 02/28/17 shows fluid collection in the Right Groin at the the level of the Femoral Anastomosis which could represent hematoma/seroma, graft is patent, splenic hamangioma Doxycycline 100 mg IV Q12H started will start Vibramycin 100mg BID x 5 days on d/c per ID Vancomycin 1 gm IV Q24H GI Dr. Betancur took a look at the Esophagus with Small Bowel Follow Through and saw no gross abnormality with small bowel thickening suggestive of enteritis. He would like patient to follow up with her 1 week after discharge. ID Dr. Valeriy Owen Blood Culture 03/02/17 is Negative To Date WBC is now normal 2). History of PVD (S/P Fem/Fem Bypass) Vascular Surgeon Dr. Rankin ASA 81 mg PO 1x/day Pletal 50 mg PO 1x/day Plavix 75 mg PO 1x/day Crestor 5 mg PO 1x/day 3). Hx DM 2 Glipizide 10 mg PO 2x/day Metformin 500 mg PO 2x/day Aspart ISS Accuchecks 4). Hx HTN Norvasc 5 mg PO 1x/day Bisoprolol/HCTZ 5/6.5 mg PO 1x/day 5). Anemia Secondary To ? Iron Studies -Ferritin normal -Fe % 12 low Monitor HgB/Hct 6). Hypokalemia Replete Magnesium and Phosphorous Gave NeutraPhos and Mag Oxide 7). Hx COPD Advair 250/50 mcg PO INH Q12H 8) New Onset Back Pain Xray Lumbar Grade 1 anterolisthesis L4-5, No acute findings CT Lumbar spine w/o contrast ordered -Grade 1 anterolisthesis L4-5, assoc spondylolysis, no acute findings 9) Leukocytosis Doxycycline 100 mg IV Q12H started 10). Prophylactic Measure Heparin 5,000 Units SC 1x/day for DVT Prophylaxis Protonix 40 mg PO 1x/day for GI Prophylaxis Florastor 250 mg PO 2x/day but not within 2 hours of antibiotic doses Reglan 10 mg IV Q8H PRN N/V Zofran 4 mg IV Q6H PRN N/V Polyethylene Glycol 17 gm PO 1x/day Xanax 0.25 mg PO 1x/day <Byron Winters - Last Filed: 04/15/17 16:11> Objective - Vital Signs/Intake and Output Vital Signs (last 24 hours): Temp Pulse Resp BP Pulse Ox 98.0 F 72 20 133/55 L 97 03/09/17 15:37 03/09/17 15:37 03/09/17 15:37 03/09/17 15:37 03/09/17 15:37 - Labs Labs: 03/08/17 08:26 03/08/17 08:26 Attending/Attestation - Attestation I have personally seen and examined this patient.: Yes I have fully participated in the care of the patient.: Yes I have reviewed all pertinent clinical information, including history, physical exam and plan: Yes Notes (Text): Abdominal Pain possibly due to enteritis. He would like patient to follow up with him 1 week after discharge. History of PVD (S/P Fem/Fem Bypass) Hx DM 2 Hx HTN Anemia workup Hypokalemia HypoMagnesium and HypoPhosphorous
[2017-03-09] MEDS: Fluticasone-Salmeterol 250-50mcg Diskus INH SCH (07:28)
[2017-03-09] MEDS: (Novolog) Insulin Aspart, Recombinant 100 u/ml 10 ml vial SC SCH ×3 (08:20→17:22)
[2017-03-09 08:49] VITALS: RESP 20
[2017-03-09] MEDS: Bisoprolol-HCTZ 5-6.25 mg Tab PO SCH (09:20)
[2017-03-09] MEDS: Saccharomyces Boulardi 250 mg Cap PO SCH ×2 (09:20→17:24)
[2017-03-09] MEDS: Potassium Chloride 20 mEq ER Tab PO SCH (09:20)
[2017-03-09] MEDS: Magnesium Oxide 400 mg Tab UD PO SCH ×2 (09:20→17:23)
[2017-03-09] MEDS: Potassium & Sodium Phosphate PO SCH (09:20)
[2017-03-09] MEDS: POLYETHYLENE GLYCOL 3350 17 GM/Dose PACKET PO SCH ×2 (09:21→17:23)
[2017-03-09] MEDS ORDERED: Pantoprazole 40 mg EC Tab PO SCH (10:00)
[2017-03-09] MEDS: Magnesium Sulfate 1 gm in D5W 1 GM/100 ML BAG IVPB SCH ×2 (11:36→12:44)
[2017-03-09] MEDS: Cilostazol 50 mg Tab UD PO SCH ×2 (13:49→17:23)
[2017-03-09 16:38] VITALS: BP 133/55; PULSE 72; TEMP 98; O2SAT 97
--- NOTE | 2017-03-09 20:21 | CP.PCM.PN ---
Subjective - Date & Time of Evaluation Date of Evaluation: 03/09/17 Time of Evaluation: 20:21 - Subjective Subjective: afebrile No new complaints. WBC improved to 11.5. patient denies any GI symptoms. Appetite improved. Objective - Vital Signs/Intake and Output Vital Signs (last 24 hours): Temp Pulse Resp BP Pulse Ox 98.0 F 72 20 133/55 L 97 03/09/17 15:37 03/09/17 15:37 03/09/17 15:37 03/09/17 15:37 03/09/17 15:37 Intake and Output: 03/09/17 03/10/17 18:59 06:59 Intake Total 500 Balance 500 - Medications Medications: Current Medications Acetaminophen (Tylenol 325mg Tab) 650 mg PO Q6 PRN PRN Reason: Pain, moderate (4-7) Last Admin: 03/09/17 13:51 Dose: 650 mg Amlodipine Besylate (Norvasc) 5 mg PO DAILY [facility] Last Admin: 03/09/17 09:20 Dose: 5 mg Aspirin (Ecotrin) 81 mg PO DAILY [facility] Last Admin: 03/09/17 09:20 Dose: 81 mg Bisoprolol Fumarate/HCTZ (Ziac 5-6.25 Mg) 1 tab PO DAILY [facility] Last Admin: 03/09/17 09:20 Dose: 1 tab Calcium/Vitamin D (Oscal-D 250 Mg-125 Units Tab) 1 tab PO DAILY@1900 [facility] Last Admin: 03/08/17 19:15 Dose: 1 tab Cilostazol (Pletal) 50 mg PO BID [facility] Last Admin: 03/09/17 17:23 Dose: 50 mg Clopidogrel Bisulfate (Plavix) 75 mg PO DAILY [facility] Last Admin: 03/09/17 09:20 Dose: 75 mg Glipizide (Glucotrol) 10 mg PO BID [facility] Last Admin: 03/09/17 17:23 Dose: 10 mg Doxycycline Hyclate 100 mg/ (Sodium Chloride) 100 mls @ 100 mls/hr IVPB Q12H [facility] Last Admin: 03/09/17 19:04 Dose: Not Given Insulin Aspart (Novolog) 0 unit SC ACHS [facility] PRN Reason: Protocol Last Admin: 03/09/17 17:22 Dose: 2 unit Magnesium Oxide (Mag-Ox) 400 mg PO BID [facility] Last Admin: 03/09/17 17:23 Dose: 400 mg Metformin HCl (Glucophage) 500 mg PO BID [facility] Last Admin: 03/01/17 10:14 Dose: Not Given Metoclopramide HCl (Reglan) 10 mg IVP Q8H PRN PRN Reason: Nausea/Vomiting Last Admin: 03/04/17 03:19 Dose: 10 mg Ondansetron HCl (Zofran Inj) 4 mg IVP Q6 PRN PRN Reason: Nausea/Vomiting Last Admin: 03/04/17 00:31 Dose: 4 mg Pantoprazole Sodium (Protonix Ec Tab) 40 mg PO DAILY [facility] Last Admin: 03/09/17 09:20 Dose: 40 mg Polyethylene Glycol (Miralax) 17 gm PO BID [facility] Last Admin: 03/09/17 17:23 Dose: Not Given Potassium Chloride (K-Dur 20 Meq Er Tab) 20 meq PO DAILY [facility] Last Admin: 03/09/17 09:20 Dose: 20 meq Potassium Phos/Sodium Phos (Neutra-Phos) 1 pkt PO DAILY [facility] Last Admin: 03/09/17 09:20 Dose: 1 pkt Rosuvastatin Calcium (Crestor) 5 mg PO HS [facility] Last Admin: 03/08/17 21:35 Dose: 5 mg Saccharomyces Boulardii (Florastor) 250 mg PO BID [facility] Last Admin: 03/09/17 17:24 Dose: 250 mg Fluticasone/Salmeterol (Advair Diskus 250/50) 1 puff INH RQ12 [facility] Last Admin: 03/09/17 07:28 Dose: 1 puff - Labs Labs: 03/08/17 08:26 03/08/17 08:26 - Constitutional Appears: No Acute Distress - Head Exam Head Exam: NORMAL INSPECTION - Eye Exam Eye Exam: EOMI, PERRL. absent: Scleral icterus - ENT Exam ENT Exam: Normal Oropharynx - Neck Exam Neck Exam: Normal Inspection - Respiratory Exam Respiratory Exam: Clear to Ausculation Bilateral - Cardiovascular Exam Cardiovascular Exam: REGULAR RHYTHM, +S1, +S2 - GI/Abdominal Exam GI & Abdominal Exam: Soft, Normal Bowel Sounds (bilateral groin wounds healing well. No tenderness right groin.) - Extremities Exam Extremities Exam: absent: Calf Tenderness, Pedal Edema, Tenderness - Neurological Exam Neurological Exam: Alert, Awake, CN II-XII Intact, Oriented x3, Reflexes Normal - Psychiatric Exam Psychiatric exam: Normal Mood - Skin Skin Exam: Normal Color, Warm Assessment and Plan (1) Leukocytosis Assessment & Plan: leukocytosis improved. No new complaints. Patient tolerating diet CAN SWITCH TO BY MOUTH 100 MG TWICE A DAY FOR 5 DAYS WHEN READY FOR DISCHARGE. . Case discussed with ENOC STERN Status: Acute (2) Abdominal pain Status: Acute (3) Nausea Status: Acute (4) Vomiting Status: Acute (5) Anemia Status: Acute (6) Constipation Status: Acute (7) Hypertension Status: Chronic (8) Diabetes mellitus Status: Chronic (9) PVD (peripheral vascular disease) Status: Acute (10) Status post femorofemoral bypass surgery Assessment & Plan: s/p fem-fem bypass 02/16/17. rt.groin collection questionble seroma. Presently asymptomatic and no complaints. surgery to follow as needed. Status: Acute
--- NOTE | 2017-03-09 21:26 | DS ---
REASON FOR ADMISSION: This is a 72-year-old female with history of multiple medical problems. Recently underwent left fem-fem bypass surgery for severe peripheral vascular disease. COURSE OF HOSPITALIZATION: The patient was admitted to hospital for abdominal pain and persistent nausea and vomiting. The patient was started on IV fluid and she had a GI consult done by Dr. Betancur. The patient underwent an upper endoscopy that shows severe gastritis. The patient was started on antiemetics and proton pump inhibitors and symptoms were remarkably improving. The patient also was started on physical therapy and found to have dysfunctional gait and high tendency to fall. Recommendation was to transfer the patient to transitional care unit. Final diagnosis : 1. post surgical infection 2, Lt Fem- Fem by pass 3. HTN 4. PVD [facility] Lalit Ledesma MD cc: [id number] TT: 03/09/2017 21:25:30 ln [email or web address]
== END 2017-03-09 19:45 | DRG 74 ==
LOC: C.ER 15:22 → C.9E 21:51 → C.3T 22:50 → C.6T 03-02 16:00
PROVIDERS: ADMIT Internal Medicine; ATTEND Internal Medicine
DX: E11.43 Type 2 diabetes mellitus with diabetic autonomic (poly)neuropathy (principal); J44.9 Chronic obstructive pulmonary disease, unspecified; J44.0 Chronic obstructive pulmonary disease with (acute) lower respiratory infection; J44.1 Chronic obstructive pulmonary disease with (acute) exacerbation; I97.648 Postprocedural seroma of a circulatory system organ or structure following other circulatory system procedure; K31.84 Gastroparesis; I10 Essential (primary) hypertension; D72.829 Elevated white blood cell count, unspecified; K52.9 Noninfective gastroenteritis and colitis, unspecified; K29.70 Gastritis, unspecified, without bleeding; J20.9 Acute bronchitis, unspecified; D18.09 Hemangioma of other sites; K59.00 Constipation, unspecified; Z88.0 Allergy status to penicillin; F41.9 Anxiety disorder, unspecified; F17.210 Nicotine dependence, cigarettes, uncomplicated; I70.209 Unspecified atherosclerosis of native arteries of extremities, unspecified extremity; T38.0X5A Adverse effect of glucocorticoids and synthetic analogues, initial encounter; J45.909 Unspecified asthma, uncomplicated; Z79.01 Long term (current) use of anticoagulants; K21.9 Gastro-esophageal reflux disease without esophagitis; M81.0 Age-related osteoporosis without current pathological fracture; M19.049 Primary osteoarthritis, unspecified hand; Y83.2 Surgical operation with anastomosis, bypass or graft as the cause of abnormal reaction of the patient, or of later complication, without mention of misadventure at the time of the procedure; E87.6 Hypokalemia; M43.06 Spondylolysis, lumbar region; Z79.4 Long term (current) use of insulin

== ENCOUNTER 2017-11-06 13:06 | Inpatient (IN) | payer MEDICARE ==
[2017-11-06 13:06] VITALS: BMI 23.3
--- NOTE | 2017-11-06 14:08 | C.PDOC ---
History Of Present Illness 72 yr old female with PMHx of diabetes, presents to the ER with complaints of right lower leg infection for the past 3 weeks. Patient states she was seen by DR. Ledesma who sent her for outpatient antibiotics but failed. Patient states she was seen by Dr. Ledesma again today and was sent to the ER. Patient denies drainage from the area, fever, chills, chest pain, SOB, nausea, vomiting, abdominal pain, weakness or numbness. Time Seen by Provider: 11/06/17 13:42 Chief Complaint (Nursing): Abnormal Skin Integrity History Per: Patient History/Exam Limitations: no limitations Onset/Duration Of Symptoms: Days (3 weeks) Past Medical History Reviewed: Historical Data, Nursing Documentation, Vital Signs Vital Signs: Last Vital Signs Temp 98.0 F 11/06/17 17:03 Pulse 75 11/06/17 17:03 Resp 18 11/06/17 17:03 BP 113/67 11/06/17 17:03 Pulse Ox 96 11/06/17 17:03 - Medical History PMH: Anxiety, Arthritis (HANDS), Asthma, Bronchitis, COPD, Diabetes, Fractures ( RT.FOOT/CASTED NO OR), HTN, Hypercholesterolemia, Osteoporosis, Pneumonia Surgical History: Endoscopy - [facility] Procedures ASSISTANCE WITH RESPIRATORY VENTILATION, 24-96 HRS (02/17/17) BYPASS L FEM ART TO R FEMOR A WITH SYNTH SUB, OPEN APPROACH (02/09/17) CLOSED ENDOSCOPIC BIOPSY OF LARGE INTESTINE (07/31/15) ENDOSCOPIC CONTROL OF GASTRIC OR DUODENAL BLEEDING (07/24/15) ESOPHAGOGASTRODUODENOSCOPY [EGD] W/CLOSED BIOPSY (04/22/13) EXERCISE TRMT MUSCULOSK LOW BACK/LE W ASSIST EQUIP (03/09/17) GAIT TRAINING/AMBULAT TREATMENT USING ASSIST EQUIPMENT (03/09/17) GAIT TRAINING/FUNCTIONAL AMBULATION TREATMENT (02/17/17) HOME MANAGEMENT TREATMENT (02/17/17) HOME MANAGEMENT TREATMENT USING ASSIST EQUIPMENT (03/09/17) THERAPEUTIC EXERCISE TREATMENT OF MUSCULOSK LOW BACK/LE (02/17/17) TRANSFUSE NONAUT RED BLOOD CELLS IN PERIPH VEIN, PERC (02/09/17) Family History: States: No Known Family Hx - Social History Hx Tobacco Use: Yes (Former.) Hx Alcohol Use: No Hx Substance Use: No - Immunization History Hx Tetanus Toxoid Vaccination: No Hx Influenza Vaccination: Yes Hx Pneumococcal Vaccination: Yes Review Of Systems Except As Marked, All Systems Reviewed And Found Negative. Constitutional: Negative for: Fever, Chills Cardiovascular: Negative for: Chest Pain Respiratory: Negative for: Shortness of Breath Gastrointestinal: Negative for: Nausea, Vomiting, Abdominal Pain Skin: Positive for: Other ((+) right lower leg infection) Neurological: Negative for: Weakness, Numbness Physical Exam - Physical Exam Appears: Non-toxic, No Acute Distress Skin: Warm, Dry, No Rash Head: Atraumatic, Normacephalic Oral Mucosa: Moist Chest: Symmetrical, No Tenderness Cardiovascular: Rhythm Regular, No Murmur Respiratory: Normal Breath Sounds, No Rales, No Rhonchi, No Stridor, No Wheezing Gastrointestinal/Abdominal: Normal Exam, Soft, No Tenderness, No Guarding, No Rebound Extremity: Normal ROM, No Calf Tenderness, Other (5cm area of erythema, tenderness and swelling to the right posterior ankle) Neurological/Psych: Oriented x3, Normal Speech, Normal Motor, Normal Sensation ED Course And Treatment - Laboratory Results Result Diagrams: 11/06/17 15:10 11/06/17 15:10 O2 Sat by Pulse Oximetry: 99 (RA) Pulse Ox Interpretation: Normal - Other Rad X-Ray - Right Ankle X-Ray: Viewed By Me, Read By Radiologist Interpretation: PROCEDURE: Right Ankle Radiographs. HISTORY: redness to the posterior ankle, r/o foreign body. COMPARISON: None. FINDINGS: BONES: There is no acute displaced fracture or bone destruction. Bone alignment is normal. There is diffuse bone demineralization. Evaluate corticated ossific density inferior to the lateral malleolus likely represents an old fracture deformity. There is a small plantar calcaneal spur. Postsurgical changes in the 1st metatarsal. JOINTS: Normal. No osteoarthritis. Ankle mortise maintained. Talar dome intact. SOFT TISSUES: There is moderate periarticular soft tissue swelling. OTHER FINDINGS: Atherosclerotic vascular calcifications are present. IMPRESSION: No acute displaced fracture or dislocation. Moderate periarticular soft tissue swelling. Old fracture deformity in the lateral malleolus. Medical Decision Making Medical Decision Making: PLAN: * X-Ray - Right Ankle * CBC * CMP * Morphine IVP Case was discussed with Dr. Ledesma who agrees to admit the patient. 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 - Scribe Statement The provider has reviewed the documentation as recorded by the Scribe Tootie Bruno All medical record entries made by the Yareliibjoce were at my direction and personally dictated by me. I have reviewed the chart and agree that the record accurately reflects my personal performance of the history, physical exam, medical decision making, and the department course for this patient. I have also personally directed, reviewed, and agree with the discharge instructions and disposition.
--- NOTE | 2017-11-06 14:42 | RAD ---
PROCEDURE: Right Ankle Radiographs. HISTORY: redness to the posterior ankle, r/o foreign body COMPARISON: None FINDINGS: BONES: There is no acute displaced fracture or bone destruction. Bone alignment is normal. There is diffuse bone demineralization. Evaluate corticated ossific density inferior to the lateral malleolus likely represents an old fracture deformity. There is a small plantar calcaneal spur. Postsurgical changes in the 1st metatarsal. JOINTS: Normal. No osteoarthritis. Ankle mortise maintained. Talar dome intact SOFT TISSUES: There is moderate periarticular soft tissue swelling. OTHER FINDINGS: Atherosclerotic vascular calcifications are present. IMPRESSION: No acute displaced fracture or dislocation. Moderate periarticular soft tissue swelling. Old fracture deformity in the lateral malleolus.
[2017-11-06 15:13] LABS: BASO # 0.1 K/uL (0.0-0.2); BASO % 0.8 % (0.0-2.0); EOS # 0.1 K/uL (0.0-0.7); EOS % 1.2 % (0.0-4.0); HEMOGLOBIN 10.2 g/dL (11.0-16.0); LYMPH # 1.9 K/uL (1.0-4.3); LYMPH % 17.6 % (20.0-40.0); MEAN CELL VOLUME 85.7 fL (81.0-99.0); MEAN CORPUSCULAR HEMOGLOBIN 28.5 pg (27.0-31.0); MEAN CORPUSCULAR HGB CONC 33.3 g/dL (33.0-37.0); MEAN PLATELET VOLUME 8.8 fL (7.2-11.7); MONO # 1.2 K/uL (0.0-0.8); MONO % 11.2 % (0.0-10.0); NEUT # 7.3 K/uL (1.8-7.0); NEUT % 69.2 % (50.0-75.0); RBC 3.56 Mil/uL (3.80-5.20); RED CELL DISTRIBUTION WIDTH 18.3 % (11.5-14.5); WHITE BLOOD COUNT 10.6 K/uL (4.8-10.8)
[2017-11-06 15:25] LABS: ALB/GLOB RATIO 1.2 (1.0-2.1); ALBUMIN 4.3 g/dL (3.5-5.0); ALT/SGPT 18 U/L (9-52); AST/SGOT 20 U/L (14-36); BLOOD UREA NITROGEN 9 mg/dL (7-17); CALCIUM 9.7 mg/dl (8.6-10.4); GFR AFRICAN-AMERICAN > 60; GFR NON-AFRICAN AMERICAN > 60
[2017-11-06] MEDS ORDERED: Vancomycin 1 GM 1 GM/250 ML BAG IV SCH (16:15)
[2017-11-06] MEDS: (Novolog) Insulin Aspart, Recombinant 100 u/ml 10 ml vial SC SCH (22:03)
--- NOTE | 2017-11-07 06:32 | CP.PCM.CON ---
History of Present Illness - History of Present Illness History of Present Illness: Vascular Surgery Re: LE pain HPI: 72F w ho PVD, s/p fem fem bypass came with b/l leg pain and discolorationStates she cannot walk very far without severe pain. Worst pain currently is across her R medial maciel area. During an angio on 12/31/16, Dr. Rankin found severe iliac and SFA disease. Patent stents on left. He was unable to re-enter at aortic bifurcation. Pt had fem fem bypass w graft on 2016. Denies F/C/N/V/D/CP/SOB. PMH: DM, HTN, PVD PSH: Colectomy, Hysterectomy, breast mass SH: Former smoker quit 3 weeks ago, no EtOH, No drug use All: PCN, Sulfa Meds: See MAR, on ASA and plavix. Review of Systems - Review of Systems Review of Systems: See HPI Past Patient History - Infectious Disease Hx of Infectious Diseases: None - Past Medical History & Family History Past Medical History?: Yes - Past Social History Smoking Status: Former Smoker - CARDIAC Hx Hypercholesterolemia: Yes Hx Hypertension: Yes - PULMONARY Hx Asthma: Yes Hx Bronchitis: Yes Hx Chronic Obstructive Pulmonary Disease (COPD): Yes Hx Pneumonia: Yes - NEUROLOGICAL Hx Neurological Disorder: No - HEENT Hx Cataracts: Yes - RENAL Hx Chronic Kidney Disease: No - ENDOCRINE/METABOLIC Hx Endocrine Disorders: Yes Hx Diabetes Mellitus Type 2: Yes - HEMATOLOGICAL/ONCOLOGICAL Hx Hepatitis C: No Hx Human Immunodeficiency Virus (HIV): No - INTEGUMENTARY Hx Dermatological Problems: No - MUSCULOSKELETAL/RHEUMATOLOGICAL Hx Arthritis: Yes (HANDS) Hx Falls: No Hx Fractures: Yes (RT.FOOT/CASTED NO OR) Hx Osteoporosis: Yes - GASTROINTESTINAL Hx Gastrointestinal Disorders: Yes Hx Bowel Surgery: Yes (COLON RESECTION FOR OBSTRUCTION?) Hx Constipation: Yes Hx Gastroesophageal Reflux: Yes Other/Comment: HX.OBSTRUCTION HAD BOWEL RESECTION - GENITOURINARY/GYNECOLOGICAL Hx Genitourinary Disorders: No - PSYCHIATRIC Hx Anxiety: Yes Hx Substance Use: No - SURGICAL HISTORY Hx Surgeries: Yes Hx Angiogram: Yes (Stenting bilateral legs) Hx Breast Biopsy: Yes (RT. 11 yrs old) Hx Herniorrhaphy: Yes (UMBILICAL) Hx Hysterectomy: Yes (RYANN) Hx Orthopedic Surgery: Yes (OMAR. BUNIONECTOMY) Hx Tubal Ligation: Yes - ANESTHESIA Hx Anesthesia: Yes Hx Anesthesia Reactions: No Hx Malignant Hyperthermia: No Meds Allergies/Adverse Reactions: Allergies Allergy/AdvReac Type Severity Reaction Status Date / Time Penicillins Allergy SWELLING Verified 11/06/17 13:13 Sulfa (Sulfonamide Allergy RASH Verified 11/06/17 13:13 Antibiotics) tomato AdvReac GI UPSET Verified 11/06/17 13:13 - Medications Medications: Current Medications Alprazolam (Xanax) 0.25 mg PO DAILY PRN PRN Reason: Anxiety Stop: 11/14/17 10:01 Bisoprolol Fumarate/HCTZ (Ziac 5-6.25 Mg) 1 tab PO DAILY [facility] Cilostazol (Pletal) 50 mg PO BID [facility] Clopidogrel Bisulfate (Plavix) 75 mg PO DAILY [facility] Docusate Sodium (Colace) 200 mg PO DAILY [facility] Enoxaparin Sodium (Lovenox) 40 mg SC DAILY [facility] Glipizide (Glucotrol) 10 mg PO BID [facility] Vancomycin HCl 1 gm/ Sodium (Chloride) 250 mls @ 166.7 mls/hr IVPB Q24H [facility] Insulin Aspart (Novolog) 0 unit SC ACHS [facility] PRN Reason: Protocol Last Admin: 11/06/17 22:03 Dose: Not Given Losartan Potassium (Cozaar) 25 mg PO DAILY [facility] Metformin HCl (Glucophage) 500 mg PO BID [facility] Rosuvastatin Calcium (Crestor) 5 mg PO HS [facility] Last Admin: 11/06/17 22:40 Dose: 5 mg Tramadol HCl (Ultram) 50 mg PO BID PRN PRN Reason: Pain, moderate (4-7) Last Admin: 11/06/17 22:40 Dose: 50 mg Physical Exam - Constitutional Appears: No Acute Distress - Head Exam Head Exam: ATRAUMATIC, NORMAL INSPECTION, NORMOCEPHALIC - Eye Exam Eye Exam: EOMI, Normal appearance, PERRL Pupil Exam: NORMAL ACCOMODATION, PERRL - ENT Exam ENT Exam: Mucous Membranes Moist, Normal Exam - Neck Exam Neck exam: Positive for: Normal Inspection - Respiratory Exam Respiratory Exam: Clear to Auscultation Bilateral, NORMAL BREATHING PATTERN - Cardiovascular Exam Cardiovascular Exam: REGULAR RHYTHM - GI/Abdominal Exam GI & Abdominal Exam: Normal Bowel Sounds, Soft. absent: Distended, Tenderness - Extremities Exam Extremities exam: Positive for: normal inspection - Back Exam Back exam: NORMAL INSPECTION - Neurological Exam Neurological exam: Alert, CN II-XII Intact, Oriented x3, Reflexes Normal - Psychiatric Exam Psychiatric exam: Normal Affect, Normal Mood - Skin Skin Exam: Dry, Intact, Warm Additional comments: discoloration Results - Vital Signs Recent Vital Signs: Last Vital Signs Temp 98.4 F 11/06/17 23:18 Pulse 74 11/06/17 23:18 Resp 20 11/06/17 23:18 BP 131/61 11/06/17 23:18 Pulse Ox 96 11/06/17 23:18 - Labs Result Diagrams: 11/06/17 15:10 11/06/17 15:10 Labs: Laboratory Results - last 24 hr 11/06/17 11/06/17 11/06/17 15:10 15:10 17:45 WBC 10.6 RBC 3.56 L Hgb 10.2 L Hct 30.5 L MCV 85.7 D MCH 28.5 MCHC 33.3 RDW 18.3 H Plt Count 260 MPV 8.8 Neut % (Auto) 69.2 Lymph % (Auto) 17.6 L [place] % (Auto) 11.2 H Eos % (Auto) 1.2 Baso % (Auto) 0.8 Neut # 7.3 H Lymph # 1.9 [place] # 1.2 H Eos # 0.1 Baso # 0.1 Sodium 134 Potassium 3.7 Chloride 96 L Carbon Dioxide 28 Anion Gap 14 BUN 9 Creatinine 0.6 L Est GFR ( Amer) > 60 Est GFR (Non-Af Amer) > 60 POC Glucose (mg/dL) 145 H Random Glucose 49 L Calcium 9.7 Total Bilirubin 0.3 AST 20 ALT 18 Alkaline Phosphatase 84 Total Protein 7.9 Albumin 4.3 Globulin 3.6 Albumin/Globulin Ratio 1.2 11/06/17 21:12 WBC RBC Hgb Hct MCV MCH MCHC RDW Plt Count MPV Neut % (Auto) Lymph % (Auto) [place] % (Auto) Eos % (Auto) Baso % (Auto) Neut # Lymph # [place] # Eos # Baso # Sodium Potassium Chloride Carbon Dioxide Anion Gap BUN Creatinine Est GFR ( Amer) Est GFR (Non-Af Amer) POC Glucose (mg/dL) 145 H Random Glucose Calcium Total Bilirubin AST ALT Alkaline Phosphatase Total Protein Albumin Globulin Albumin/Globulin Ratio Assessment & Plan - Assessment and Plan (Free Text) Assessment: b/l PVD -f/u US -Medical management Will JOSE ANGEL Rankin
[2017-11-07] MEDS: (Novolog) Insulin Aspart, Recombinant 100 u/ml 10 ml vial SC SCH ×4 (08:41→22:11)
[2017-11-07] MEDS: Bisoprolol-HCTZ 5-6.25 mg Tab PO SCH (09:51)
[2017-11-07] MEDS: Cilostazol 50 mg Tab UD PO SCH ×2 (09:51→18:12)
[2017-11-07] MEDS: Enoxaparin 40 mg Syringe SC SCH (09:51)
[2017-11-07] MEDS ORDERED: Iodixanol 320 MG/ML 100 ML BOTTLE IV ONE (09:56)
--- NOTE | 2017-11-07 11:00 | CP.PCM.PN ---
Subjective - Date & Time of Evaluation Date of Evaluation: 11/07/17 Time of Evaluation: 10:59 - Subjective Subjective: studies reviewed angio shows right popliteal stenosis and osssible some in stent stenosis in left iliac- await official report otherwsie graft is patent might need intervention on popliteal on right Objective - Vital Signs/Intake and Output Vital Signs (last 24 hours): Temp Pulse Resp BP Pulse Ox 98.8 F 72 20 117/58 L 96 11/07/17 08:20 11/07/17 08:20 11/07/17 08:20 11/07/17 08:20 11/07/17 08:20 Intake and Output: 11/07/17 11/07/17 06:59 18:59 Intake Total 0 Balance 0 - Medications Medications: Current Medications Alprazolam (Xanax) 0.25 mg PO DAILY PRN PRN Reason: Anxiety Stop: 11/14/17 10:01 Bisoprolol Fumarate/HCTZ (Ziac 5-6.25 Mg) 1 tab PO DAILY [facility] Last Admin: 11/07/17 09:51 Dose: 1 tab Cilostazol (Pletal) 50 mg PO BID [facility] Last Admin: 11/07/17 09:51 Dose: 50 mg Clopidogrel Bisulfate (Plavix) 75 mg PO DAILY [facility] Last Admin: 11/07/17 09:51 Dose: 75 mg Docusate Sodium (Colace) 200 mg PO DAILY [facility] Last Admin: 11/07/17 09:51 Dose: 200 mg Enoxaparin Sodium (Lovenox) 40 mg SC DAILY [facility] Last Admin: 11/07/17 09:51 Dose: 40 mg Glipizide (Glucotrol) 10 mg PO BID [facility] Last Admin: 11/07/17 09:51 Dose: 10 mg Vancomycin HCl 1 gm/ Sodium (Chloride) 250 mls @ 166.7 mls/hr IVPB Q24H [facility] Insulin Aspart (Novolog) 0 unit SC ACHS [facility] PRN Reason: Protocol Last Admin: 11/07/17 08:41 Dose: Not Given Losartan Potassium (Cozaar) 25 mg PO DAILY [facility] Last Admin: 11/07/17 09:51 Dose: 25 mg Metformin HCl (Glucophage) 500 mg PO BID [facility] Last Admin: 11/07/17 09:51 Dose: 500 mg Rosuvastatin Calcium (Crestor) 5 mg PO HS [facility] Last Admin: 11/06/17 22:40 Dose: 5 mg Tramadol HCl (Ultram) 50 mg PO BID PRN PRN Reason: Pain, moderate (4-7) Last Admin: 11/07/17 07:11 Dose: 50 mg - Labs Labs: 11/06/17 15:10 11/06/17 15:10
--- NOTE | 2017-11-07 14:41 | CP.PCM.CON ---
History of Present Illness - History of Present Illness History of Present Illness: INFECTIOUS DISEASE CONSULT; HPI; 72 yr old female with PMHx of diabetes, presents to the ER on 11/06/17 with complaints of right lower leg infection for the past 3 weeks. Patient states she was seen by DR. Ledesma who sent her for outpatient antibiotics but failed. Patient states she was seen by Dr. Ledesma again today and was sent to the ER. Patient has hx of s/p fem fem bypass with grafts in January 2017. Patient now comes in complaining of right lower leg pain with worse pain across her right medial maciel area which is also swollen and warm to touch she also complains off pain posteriorly on her rt. calf.and states she cannot walk too far without severe pain. Patient states she has stents on the left side. patient denies any drainage from the area. Patient denies any fever or chills. Patient denies any shortness of breath, cough, hemoptysis or chest pains. Patient denies any weakness or numbness except for right foot distal toes which at times she states she feels them cold. PATIENT X-RAY OF THE RIGHT ANKLE SHOWED NO ACUTE FRACTURE OR DISLOCATION EXCEPT FOR SOME OLD HEALED DEFORMITY LATERAL MALLEOLUS. pOSTSURGICAL CHANGES ALSO SEEN ON THE FIRST METATARSAL. INFECTIOUS DISEASE CONSULTATION REQUESTED BY DR LEDESMA FOR CELLULITIS RIGHT LOWER EXTREMITY AND ANKLE. PATIENT WAS GIVEN ONE DOSE OF VANCOMYCIN IN THE er AFTER APPROPRIATE BLOOD CULTURES AND URINE CULTURES. PMH: DM, HTN, PVD PSH: Colectomy, Hysterectomy, breast mass SH: Former smoker quit 3 weeks ago, no EtOH, No drug use All: PCN, Sulfa Meds: See DEC, on ASA and plavix. Review of Systems - Constitutional Constitutional: absent: Chills, Fever - EENT Eyes: absent: Change in Vision Nose/Mouth/Throat: absent: Mouth Lesions - Breasts Breasts: As Per HPI. absent: Pain, Nipple Discharge - Cardiovascular Cardiovascular: Claudication, Pedal Edema. absent: Chest Pain, Dyspnea - Respiratory Respiratory: absent: Cough, Dyspnea, Hemoptysis - Gastrointestinal Gastrointestinal: absent: Abdominal Pain, Diarrhea, Nausea, Vomiting - Genitourinary Genitourinary: absent: Dysuria - Reproductive: Female Reproductive:Female: Post Menopausal - Musculoskeletal Musculoskeletal: Radiating Pain into Limb (RIGHT LOWER EXTREMITY POSTERIORLY ON AMBULATING AND RIGHT ANKLE MEDIALLY.) - Integumentary Integumentary: Swelling (RIGHT ANKLE MEDIALLY.) - Neurological Neurological: Radicular Pain (RIGHT LOWER EXTREMITY WITH CELLULITIS AND SWELLING OF THE MEDIAL MALLEOLUS.NO OPEN DRAINING ULCERS NOTED.) - Hematologic/Lymphatic Hematologic: As Per HPI. absent: Easy Bruising, Lymphadenopathy Past Patient History - Infectious Disease Hx of Infectious Diseases: None - Past Medical History & Family History Past Medical History?: Yes - Past Social History Smoking Status: Former Smoker - CARDIAC Hx Hypercholesterolemia: Yes Hx Hypertension: Yes - PULMONARY Hx Asthma: Yes Hx Bronchitis: Yes Hx Chronic Obstructive Pulmonary Disease (COPD): Yes Hx Pneumonia: Yes - NEUROLOGICAL Hx Neurological Disorder: No - HEENT Hx Cataracts: Yes - RENAL Hx Chronic Kidney Disease: No - ENDOCRINE/METABOLIC Hx Endocrine Disorders: Yes Hx Diabetes Mellitus Type 2: Yes - HEMATOLOGICAL/ONCOLOGICAL Hx Hepatitis C: No Hx Human Immunodeficiency Virus (HIV): No - INTEGUMENTARY Hx Dermatological Problems: No - MUSCULOSKELETAL/RHEUMATOLOGICAL Hx Arthritis: Yes (HANDS) Hx Falls: No Hx Fractures: Yes (RT.FOOT/CASTED NO OR) Hx Osteoporosis: Yes - GASTROINTESTINAL Hx Gastrointestinal Disorders: Yes Hx Bowel Surgery: Yes (COLON RESECTION FOR OBSTRUCTION?) Hx Constipation: Yes Hx Gastroesophageal Reflux: Yes Other/Comment: HX.OBSTRUCTION HAD BOWEL RESECTION - GENITOURINARY/GYNECOLOGICAL Hx Genitourinary Disorders: No - PSYCHIATRIC Hx Anxiety: Yes Hx Substance Use: No - SURGICAL HISTORY Hx Surgeries: Yes Hx Angiogram: Yes (Stenting bilateral legs) Hx Breast Biopsy: Yes (RT. 11 yrs old) Hx Herniorrhaphy: Yes (UMBILICAL) Hx Hysterectomy: Yes (RYANN) Hx Orthopedic Surgery: Yes (OMAR. BUNIONECTOMY) Hx Tubal Ligation: Yes - ANESTHESIA Hx Anesthesia: Yes Hx Anesthesia Reactions: No Hx Malignant Hyperthermia: No Meds Allergies/Adverse Reactions: Allergies Allergy/AdvReac Type Severity Reaction Status Date / Time Penicillins Allergy SWELLING Verified 11/06/17 13:13 Sulfa (Sulfonamide Allergy RASH Verified 11/06/17 13:13 Antibiotics) tomato AdvReac GI UPSET Verified 11/06/17 13:13 - Medications Medications: Current Medications Alprazolam (Xanax) 0.25 mg PO DAILY PRN PRN Reason: Anxiety Stop: 11/14/17 10:01 Bisoprolol Fumarate/HCTZ (Ziac 5-6.25 Mg) 1 tab PO DAILY [facility] Last Admin: 11/07/17 09:51 Dose: 1 tab Cilostazol (Pletal) 50 mg PO BID [facility] Last Admin: 11/07/17 09:51 Dose: 50 mg Clopidogrel Bisulfate (Plavix) 75 mg PO DAILY [facility] Last Admin: 11/07/17 09:51 Dose: 75 mg Docusate Sodium (Colace) 200 mg PO DAILY [facility] Last Admin: 11/07/17 09:51 Dose: 200 mg Enoxaparin Sodium (Lovenox) 40 mg SC DAILY [facility] Last Admin: 11/07/17 09:51 Dose: 40 mg Glipizide (Glucotrol) 10 mg PO BID [facility] Last Admin: 11/07/17 09:51 Dose: 10 mg Vancomycin HCl 1 gm/ Sodium (Chloride) 250 mls @ 166.7 mls/hr IVPB Q24H [facility] Insulin Aspart (Novolog) 0 unit SC ACHS [facility] PRN Reason: Protocol Last Admin: 11/07/17 12:13 Dose: Not Given Losartan Potassium (Cozaar) 25 mg PO DAILY [facility] Last Admin: 11/07/17 09:51 Dose: 25 mg Metformin HCl (Glucophage) 500 mg PO BID [facility] Last Admin: 11/07/17 09:51 Dose: 500 mg Rosuvastatin Calcium (Crestor) 5 mg PO HS [facility] Last Admin: 11/06/17 22:40 Dose: 5 mg Tramadol HCl (Ultram) 50 mg PO BID PRN PRN Reason: Pain, moderate (4-7) Last Admin: 11/07/17 07:11 Dose: 50 mg Physical Exam - Constitutional Appears: No Acute Distress, Cachectic - Head Exam Head Exam: NORMAL INSPECTION - Eye Exam Eye Exam: EOMI, PERRL - ENT Exam ENT Exam: Normal Oropharynx - Neck Exam Neck exam: Positive for: Normal Inspection - Respiratory Exam Respiratory Exam: Clear to Auscultation Bilateral - Cardiovascular Exam Cardiovascular Exam: REGULAR RHYTHM, +S1, +S2 - GI/Abdominal Exam GI & Abdominal Exam: Normal Bowel Sounds, Soft. absent: Organomegaly - Extremities Exam Extremities exam: Positive for: pedal edema (TENDERNESS RIGHT POSTERIOR LOWER EXTREMITY WITH SWELLING AND CELLULITIS RIGHT MEDIAL MALLEOLUS.), pedal pulses present (DISTANT. RIGHT FOOT APPEARS TO BE WARM.). Negative for: calf tenderness - Back Exam Back exam: FULL ROM. absent: tenderness - Neurological Exam Neurological exam: Alert, CN II-XII Intact, Oriented x3, Reflexes Normal - Psychiatric Exam Psychiatric exam: Normal Mood - Skin Skin Exam: Normal Color, Warm Results - Vital Signs Recent Vital Signs: Last Vital Signs Temp 98.8 F 11/07/17 08:20 Pulse 72 11/07/17 08:20 Resp 20 11/07/17 08:20 BP 117/58 L 11/07/17 08:20 Pulse Ox 96 11/07/17 08:20 - Labs Result Diagrams: 11/08/17 09:15 11/08/17 09:15 Labs: Laboratory Results - last 24 hr 11/06/17 11/06/17 11/06/17 15:10 15:10 17:45 WBC 10.6 RBC 3.56 L Hgb 10.2 L Hct 30.5 L MCV 85.7 D MCH 28.5 MCHC 33.3 RDW 18.3 H Plt Count 260 MPV 8.8 Neut % (Auto) 69.2 Lymph % (Auto) 17.6 L [place] % (Auto) 11.2 H Eos % (Auto) 1.2 Baso % (Auto) 0.8 Neut # 7.3 H Lymph # 1.9 [place] # 1.2 H Eos # 0.1 Baso # 0.1 ESR Sodium 134 Potassium 3.7 Chloride 96 L Carbon Dioxide 28 Anion Gap 14 BUN 9 Creatinine 0.6 L Est GFR ( Amer) > 60 Est GFR (Non-Af Amer) > 60 POC Glucose (mg/dL) 145 H Random Glucose 49 L Calcium 9.7 Total Bilirubin 0.3 AST 20 ALT 18 Alkaline Phosphatase 84 C-React Prot High Sens Total Protein 7.9 Albumin 4.3 Globulin 3.6 Albumin/Globulin Ratio 1.2 11/06/17 11/07/17 11/07/17 21:12 07:17 07:20 WBC RBC Hgb Hct MCV MCH MCHC RDW Plt Count MPV Neut % (Auto) Lymph % (Auto) [place] % (Auto) Eos % (Auto) Baso % (Auto) Neut # Lymph # [place] # Eos # Baso # ESR 88 H Sodium Potassium Chloride Carbon Dioxide Anion Gap BUN Creatinine Est GFR ( Amer) Est GFR (Non-Af Amer) POC Glucose (mg/dL) 145 H 81 Random Glucose Calcium Total Bilirubin AST ALT Alkaline Phosphatase C-React Prot High Sens Total Protein Albumin Globulin Albumin/Globulin Ratio 11/07/17 11/07/17 07:20 11:26 WBC RBC Hgb Hct MCV MCH MCHC RDW Plt Count MPV Neut % (Auto) Lymph % (Auto) [place] % (Auto) Eos % (Auto) Baso % (Auto) Neut # Lymph # [place] # Eos # Baso # ESR Sodium Potassium Chloride Carbon Dioxide Anion Gap BUN Creatinine Est GFR ( Amer) Est GFR (Non-Af Amer) POC Glucose (mg/dL) 106 Random Glucose Calcium Total Bilirubin AST ALT Alkaline Phosphatase C-React Prot High Sens > 15.00 H Total Protein Albumin Globulin Albumin/Globulin Ratio - Imaging and Cardiology X-RAY RIGHT ANKLE Status: Report reviewed by me Assessment & Plan (1) Cellulitis Assessment and Plan: PANCULTURES ESR CRP. CONTINUE iv VANCOMYCIN 1 G ONCE A DAY DAILY 11/06/17. F/U VANCO TROUGH LEVEL PRIOR TO 4TH DOSE. MONITOR RENAL FNCTION CLOSELY. VASCULAR CONSULT IN PROGRESS. Status: Acute (2) Joint swelling Assessment and Plan: RT. MEDIAL MALLEOLUS STS NOTED. ELEVATE RT LE. ON ABX. Status: Acute (3) PVD (peripheral vascular disease) Assessment and Plan: S/P HX OF FEM-FEM BYPASS 01/2017. WITH STENTS LT SIDE Status: Acute (4) Status post femorofemoral bypass surgery Assessment and Plan: ABOVE, VASCULAR SURGERY TO EVALUATE ANGIO 01/16 Status: Acute (5) Diabetes mellitus Assessment and Plan: PER PMD. ' Status: Chronic
[2017-11-07] MEDS: Albuterol-Ipratrop 3 mg / 0.5 (3 ml) UD INH SCH (21:51)
--- NOTE | 2017-11-08 01:06 | HP ---
HISTORY OF PRESENT ILLNESS: This is a 72-year-old -[place] female with history of multiple medical problems, presented to my office on the day of admission with symptoms of pain and swelling and redness of the right foot and right lower extremity. The patient was sent to Emergency Room for evaluation where she was found to have cellulitis in addition to severe peripheral vascular disease. Patient was started on IV antibiotics and admitted for further management. REVIEW OF SYSTEMS: Other review of systems is negative. ALLERGIES: POSITIVE FOR PENICILLIN, SULFA AND TOMATO. PAST MEDICAL HISTORY: Peripheral vascular disease status post intravascular procedure on the right lower extremity, type 2 diabetes mellitus, hypertension, hypercholesterolemia. SOCIAL HISTORY: Smoker, more than 30 pack-year. No alcohol or other substance abuse. FAMILY HISTORY: Noncontributory. MEDICATIONS: As per MAR. PHYSICAL EXAMINATION GENERAL: Patient is in bed, comfortable at the time of this examination. VITAL SIGNS: Blood pressure 117/58, temperature 98.8, respiratory rate 20 and pulse 72. HEENT: Pupils equal, reactive to light. Normal-appearing mucosa of the conjunctivae, oropharynx and nasal membrane mucosa. NECK: Supple. No JVD. No carotid bruits. No lymph node. No thyromegaly. CHEST AND LUNGS: Bilateral symmetrical expansion. Good air exchange. No rales, no rhonchi. CARDIOVASCULAR SYSTEM: PMI not localized. S1, S2. No additional sounds. ABDOMEN: Normoactive bowel sounds. No tenderness. No organomegaly. No masses. EXTREMITIES: No cyanosis, no clubbing. There is swelling and redness and infected wound in the right lower extremity, 1 x 2 cm with eschar and an erythematous area around and increased temperature on the right above the ankle with decreased temperature of the right foot. CENTRAL NERVOUS SYSTEM: Alert, awake, oriented x2. No neurological deficit could be appreciated. ASSESSMENT: 1. Cellulitis of right lower extremity. 2. Infected wound. 3. Severe peripheral vascular disease. 4. Smoker. 5. Hypertension. 6. Type 2 diabetes mellitus. PLAN: Continue current IV antibiotics, vancomycin 1 g daily started by Infectious Disease biometrics consultant. Vascular Surgery consult and follow recommendations. Venous Doppler and arterial Doppler of both lower extremities. Resume patient's home medications and we will do Accu-Cheks every 6 hours with insulin coverage as needed. [facility] MD [facility] # [id number]
[2017-11-08] MEDS: Albuterol-Ipratrop 3 mg / 0.5 (3 ml) UD INH SCH ×4 (01:55→19:53)
[2017-11-08] MEDS: (Novolog) Insulin Aspart, Recombinant 100 u/ml 10 ml vial SC SCH ×4 (08:42→22:07)
--- NOTE | 2017-11-08 09:06 | CP.PCM.PN ---
Subjective - Date & Time of Evaluation Date of Evaluation: 11/08/17 Time of Evaluation: 07:30 - Subjective Subjective: Vascular Surgery Dr. Rankin Pt S&E @bedside. NAEO. Pt c/o pain at ulcer sites on R lateral malleolus and medial maciel. Pt denies F/C, N/V. Objective - Vital Signs/Intake and Output Vital Signs (last 24 hours): Temp Pulse Resp BP Pulse Ox 98.7 F 67 20 131/51 L 97 11/08/17 08:00 11/08/17 08:00 11/08/17 08:00 11/08/17 08:00 11/08/17 08:00 Intake and Output: 11/08/17 11/08/17 06:59 18:59 Intake Total 550 180 Balance 550 180 - Medications Medications: Current Medications Albuterol/Ipratropium (Duoneb 3 Mg/0.5 Mg (3 Ml) Ud) 3 ml INH RQ6 [facility] Last Admin: 11/08/17 07:32 Dose: 3 ml Alprazolam (Xanax) 0.25 mg PO DAILY PRN PRN Reason: Anxiety Stop: 11/14/17 10:01 Bisoprolol Fumarate/HCTZ (Ziac 5-6.25 Mg) 1 tab PO DAILY [facility] Last Admin: 11/07/17 09:51 Dose: 1 tab Cilostazol (Pletal) 50 mg PO BID [facility] Last Admin: 11/07/17 18:12 Dose: 50 mg Clopidogrel Bisulfate (Plavix) 75 mg PO DAILY [facility] Last Admin: 11/07/17 09:51 Dose: 75 mg Docusate Sodium (Colace) 200 mg PO DAILY [facility] Last Admin: 11/07/17 09:51 Dose: 200 mg Enoxaparin Sodium (Lovenox) 40 mg SC DAILY [facility] Last Admin: 11/07/17 09:51 Dose: 40 mg Glipizide (Glucotrol) 10 mg PO BID [facility] Last Admin: 11/07/17 18:12 Dose: 10 mg Vancomycin HCl 1 gm/ Sodium (Chloride) 250 mls @ 166.7 mls/hr IVPB Q24H [facility] Last Admin: 11/07/17 16:36 Dose: 166.7 mls/hr Insulin Aspart (Novolog) 0 unit SC ACHS [facility] PRN Reason: Protocol Last Admin: 11/08/17 08:42 Dose: Not Given Losartan Potassium (Cozaar) 25 mg PO DAILY [facility] Last Admin: 11/07/17 09:51 Dose: 25 mg Metformin HCl (Glucophage) 500 mg PO BID [facility] Last Admin: 11/07/17 18:11 Dose: 500 mg Rosuvastatin Calcium (Crestor) 5 mg PO HS [facility] Last Admin: 11/07/17 22:11 Dose: 5 mg Tramadol HCl (Ultram) 50 mg PO BID PRN PRN Reason: Pain, moderate (4-7) Last Admin: 11/08/17 04:47 Dose: 50 mg - Labs Labs: 11/06/17 15:10 11/06/17 15:10 - Constitutional Appears: Non-toxic, No Acute Distress - Head Exam Head Exam: NORMAL INSPECTION - Eye Exam Eye Exam: Normal appearance - ENT Exam ENT Exam: Mucous Membranes Moist - Respiratory Exam Respiratory Exam: NORMAL BREATHING PATTERN. absent: Accessory Muscle Use, Respiratory Distress - Extremities Exam Additional comments: mild erythema surround R lateral malleolus venous ulcer no drainage or discharge noted - Neurological Exam Neurological Exam: Alert, Awake, Oriented x3 - Psychiatric Exam Psychiatric exam: Normal Affect, Normal Mood - Skin Skin Exam: Dry, Warm Assessment and Plan - Assessment and Plan (Free Text) Assessment: 72 y/o F w/ RLE PVD and ulcerations - apply medihoney and island to ulcers - cont pain management - may need angio pending official read of U/S and CTA - cont medical management Pt discussed w/ Dr. Chucho Martinez DO PGY2
[2017-11-08] MEDS: Bisoprolol-HCTZ 5-6.25 mg Tab PO SCH (10:01)
[2017-11-08] MEDS: Enoxaparin 40 mg Syringe SC SCH (10:01)
[2017-11-08] MEDS: Cilostazol 50 mg Tab UD PO SCH ×2 (10:02→17:44)
[2017-11-08 10:11] LABS: BASO # 0.1 K/uL (0.0-0.2); BASO % 0.8 % (0.0-2.0); EOS # 0.1 K/uL (0.0-0.7); EOS % 1.5 % (0.0-4.0); HEMOGLOBIN 9.9 g/dL (11.0-16.0); LYMPH # 1.4 K/uL (1.0-4.3); LYMPH % 14.7 % (20.0-40.0); MEAN CELL VOLUME 86.5 fL (81.0-99.0); MEAN CORPUSCULAR HEMOGLOBIN 28.8 pg (27.0-31.0); MEAN CORPUSCULAR HGB CONC 33.3 g/dL (33.0-37.0); MEAN PLATELET VOLUME 9.4 fL (7.2-11.7); MONO # 1.2 K/uL (0.0-0.8); MONO % 12.7 % (0.0-10.0); NEUT # 6.5 K/uL (1.8-7.0); NEUT % 70.3 % (50.0-75.0); RBC 3.44 Mil/uL (3.80-5.20); WHITE BLOOD COUNT 9.3 K/uL (4.8-10.8)
[2017-11-08 10:32] LABS: BLOOD UREA NITROGEN 7 mg/dL (7-17); CALCIUM 8.9 mg/dl (8.6-10.4); GFR AFRICAN-AMERICAN > 60; GFR NON-AFRICAN AMERICAN > 60
[2017-11-09] MEDS: Albuterol-Ipratrop 3 mg / 0.5 (3 ml) UD INH SCH ×4 (01:23→20:02)
[2017-11-09] MEDS: (Novolog) Insulin Aspart, Recombinant 100 u/ml 10 ml vial SC SCH ×4 (08:15→22:31)
--- NOTE | 2017-11-09 08:23 | CP.PCM.PN ---
Subjective - Date & Time of Evaluation Date of Evaluation: 11/09/17 Time of Evaluation: 07:00 - Subjective Subjective: Surgical Progress Note: Patient was seen and examined at bedside in the AM. Patient complained of pain at ulcer sites on R lateral malleolus and medial maciel. Patient denies nausea, vomiting, fever, diarrhea or constipation. Objective - Vital Signs/Intake and Output Vital Signs (last 24 hours): Temp Pulse Resp BP Pulse Ox 98.9 F 80 20 115/60 96 11/08/17 23:16 11/08/17 23:16 11/08/17 23:16 11/08/17 23:16 11/08/17 23:16 Intake and Output: 11/09/17 11/09/17 06:59 18:59 Intake Total 650 240 Balance 650 240 - Medications Medications: Current Medications Albuterol/Ipratropium (Duoneb 3 Mg/0.5 Mg (3 Ml) Ud) 3 ml INH RQ6 [facility] Last Admin: 11/09/17 07:40 Dose: 3 ml Alprazolam (Xanax) 0.25 mg PO DAILY PRN PRN Reason: Anxiety Stop: 11/14/17 10:01 Bisoprolol Fumarate/HCTZ (Ziac 5-6.25 Mg) 1 tab PO DAILY [facility] Last Admin: 11/08/17 10:01 Dose: 1 tab Cilostazol (Pletal) 50 mg PO BID [facility] Last Admin: 11/08/17 17:44 Dose: 50 mg Clopidogrel Bisulfate (Plavix) 75 mg PO DAILY [facility] Last Admin: 11/08/17 10:02 Dose: 75 mg Docusate Sodium (Colace) 200 mg PO DAILY [facility] Last Admin: 11/08/17 10:01 Dose: 200 mg Enoxaparin Sodium (Lovenox) 40 mg SC DAILY [facility] Last Admin: 11/08/17 10:01 Dose: 40 mg Glipizide (Glucotrol) 10 mg PO BID [facility] Last Admin: 11/08/17 17:44 Dose: 10 mg Vancomycin HCl 1 gm/ Sodium (Chloride) 250 mls @ 166.7 mls/hr IVPB Q24H [facility] Last Admin: 11/08/17 16:09 Dose: 166.7 mls/hr Insulin Aspart (Novolog) 0 unit SC ACHS [facility] PRN Reason: Protocol Last Admin: 11/08/17 22:07 Dose: Not Given Losartan Potassium (Cozaar) 25 mg PO DAILY [facility] Last Admin: 11/08/17 10:02 Dose: 25 mg Metformin HCl (Glucophage) 500 mg PO BID [facility] Last Admin: 11/08/17 17:44 Dose: 500 mg Rosuvastatin Calcium (Crestor) 5 mg PO HS [facility] Last Admin: 11/08/17 22:07 Dose: 5 mg Tramadol HCl (Ultram) 50 mg PO BID PRN PRN Reason: Pain, moderate (4-7) Last Admin: 11/08/17 15:25 Dose: 50 mg - Labs Labs: 11/08/17 09:15 11/08/17 09:15 - Constitutional Appears: No Acute Distress - Head Exam Head Exam: ATRAUMATIC, NORMAL INSPECTION - Eye Exam Eye Exam: EOMI, Normal appearance - ENT Exam ENT Exam: Mucous Membranes Moist - Respiratory Exam Respiratory Exam: NORMAL BREATHING PATTERN - Cardiovascular Exam Cardiovascular Exam: +S1, +S2 - GI/Abdominal Exam GI & Abdominal Exam: Soft, Normal Bowel Sounds. absent: Tenderness - Extremities Exam Additional comments: mild erythema surround R lateral malleolus venous ulcer - Neurological Exam Neurological Exam: Alert, Awake, Oriented x3 - Psychiatric Exam Psychiatric exam: Normal Affect, Normal Mood - Skin Skin Exam: Dry, Intact, Normal Color, Warm Assessment and Plan - Assessment and Plan (Free Text) Assessment: 72 year old female with RLE PVD and ulcerations - apply medihoney and island dressings to ulcers - may need angio pending official read of U/S and CTA - cont medical management Yamila Montgomery PGY-1
--- NOTE | 2017-11-09 09:54 | CP.PCM.PN ---
Subjective - Date & Time of Evaluation Date of Evaluation: 11/09/17 Time of Evaluation: 09:53 - Subjective Subjective: for angio thursday to improve perfusion to right leg Objective - Vital Signs/Intake and Output Vital Signs (last 24 hours): Temp Pulse Resp BP Pulse Ox 98.5 F 88 20 130/63 97 11/09/17 08:49 11/09/17 08:49 11/09/17 08:49 11/09/17 08:49 11/09/17 08:49 Intake and Output: 11/09/17 11/09/17 06:59 18:59 Intake Total 650 240 Balance 650 240 - Medications Medications: Current Medications Albuterol/Ipratropium (Duoneb 3 Mg/0.5 Mg (3 Ml) Ud) 3 ml INH RQ6 [facility] Last Admin: 11/09/17 07:40 Dose: 3 ml Alprazolam (Xanax) 0.25 mg PO DAILY PRN PRN Reason: Anxiety Stop: 11/14/17 10:01 Bisoprolol Fumarate/HCTZ (Ziac 5-6.25 Mg) 1 tab PO DAILY [facility] Last Admin: 11/08/17 10:01 Dose: 1 tab Cilostazol (Pletal) 50 mg PO BID [facility] Last Admin: 11/08/17 17:44 Dose: 50 mg Clopidogrel Bisulfate (Plavix) 75 mg PO DAILY [facility] Last Admin: 11/08/17 10:02 Dose: 75 mg Docusate Sodium (Colace) 200 mg PO DAILY [facility] Last Admin: 11/08/17 10:01 Dose: 200 mg Enoxaparin Sodium (Lovenox) 40 mg SC DAILY [facility] Last Admin: 11/08/17 10:01 Dose: 40 mg Glipizide (Glucotrol) 10 mg PO BID [facility] Last Admin: 11/08/17 17:44 Dose: 10 mg Vancomycin HCl 1 gm/ Sodium (Chloride) 250 mls @ 166.7 mls/hr IVPB Q24H [facility] Last Admin: 11/08/17 16:09 Dose: 166.7 mls/hr Insulin Aspart (Novolog) 0 unit SC ACHS [facility] PRN Reason: Protocol Last Admin: 11/09/17 08:15 Dose: Not Given Losartan Potassium (Cozaar) 25 mg PO DAILY [facility] Last Admin: 11/08/17 10:02 Dose: 25 mg Metformin HCl (Glucophage) 500 mg PO BID [facility] Last Admin: 11/08/17 17:44 Dose: 500 mg Rosuvastatin Calcium (Crestor) 5 mg PO [facility] Last Admin: 11/08/17 22:07 Dose: 5 mg Tramadol HCl (Ultram) 50 mg PO BID PRN PRN Reason: Pain, moderate (4-7) Last Admin: 11/08/17 15:25 Dose: 50 mg - Labs Labs: 11/08/17 09:15 11/08/17 09:15
--- NOTE | 2017-11-09 11:27 | VASCLAB ---
PROCEDURE: Lower Extremity Venous Duplex Exam. HISTORY: cellulitis B/L LE pain PRIORS: None. TECHNIQUE: Bilateral common femoral, femoral, popliteal and posterior tibial, peroneal and great saphenous veins were evaluated. Flow was assessed with color Doppler, compressibility, assessment of phasic flow and augmentation response. Report prepared by Perico Ray, T FINDINGS: RIGHT: 1. Common Femoral Vein: 1.1. Compressibility - Fully compressible: Thrombus - None : Flow - Phasic: Augmentation -Normal: Reflux - . 2. Femoral Vein: 2.1. Compressibility - Fully compressible: Thrombus - None : Flow - Phasic: Augmentation -Normal: Reflux - . 3. Popliteal Vein: 3.1. Compressibility - Fully compressible: Thrombus - None : Flow - Phasic: Augmentation -Normal: Reflux - . 4. Posterior Tibial Vein: 4.1. Compressibility - Fully compressible: Thrombus - None: Flow - : Augmentation -: Reflux - . 5. Peroneal Vein: 5.1. Compressibility - Fully compressible: Thrombus - None: Flow - : Augmentation -: Reflux - . 6. Great Saphenous Vein: 6.1. Compressibility - Fully compressible: Thrombus - None: Flow - Phasic: Augmentation - : Reflux - . LEFT: 1. Common Femoral Vein: 1.1. Compressibility - Fully compressible: Thrombus - None: Flow - Phasic: Augmentation -Normal: Reflux - None. 2. Femoral Vein: 2.1. Compressibility - Fully compressible: Thrombus - None: Flow - Phasic: Augmentation -Normal: Reflux - . 3. Popliteal Vein: 3.1. Compressibility - Fully compressible: Thrombus - None : Flow - Phasic: Augmentation -Normal: Reflux - . 4. Posterior Tibial Vein: 4.1. Compressibility - Fully compressible: Thrombus - None: Flow - : Augmentation -: Reflux - . 5. Peroneal Vein: 5.1. Compressibility - Fully compressible: Thrombus - None: Flow - : Augmentation -: Reflux - . 6. Great Saphenous Vein: 6.1. Compressibility - Fully compressible: Thrombus - None: Flow - Phasic: Augmentation - : Reflux - . OTHER FINDINGS: Right: None significant. Left: None significant. IMPRESSION: Right: No evidence of deep or superficial vein thrombosis of the right lower extremity. Left: No evidence of deep or superficial vein thrombosis of the left lower extremity.
[2017-11-09] MEDS: Enoxaparin 40 mg Syringe SC SCH (11:37)
[2017-11-09] MEDS: Cilostazol 50 mg Tab UD PO SCH ×2 (11:37→17:55)
[2017-11-09] MEDS: Bisoprolol-HCTZ 5-6.25 mg Tab PO SCH (11:39)
--- NOTE | 2017-11-09 12:08 | CT ---
PROCEDURE: CT Angiography Abdomen, Pelvis and Lower Extremity with Contrast HISTORY: s/p fem-fem bypass COMPARISON: None. TECHNIQUE: Technique: CT angiography of the abdomen, pelvis and bilateral lower extremities performed in the arterial phase of enhancement. Coronal and sagittal reformats, and well as rotating MIP images of the vessels generated at the workstation. Intravenous contrast dose: 100 milliliters Visipaque 320 Radiation dose: Total exam DLP = 1112.88 MGy-cm. This CT exam was performed using one or more of the following dose reduction techniques: Automated exposure control, adjustment of the mA and/or kV according to patient size, and/or use of iterative reconstruction technique. FINDINGS: CT ANGIOGRAPHY: ABDOMINAL AORTA:: Severe calcific plaque throughout the abdominal aorta with no aneurysm or stenosis. MAJOR AORTIC BRANCHES: Celiac [place]: Moderate stenosis of the celiac access, moderate calcific plaque. Superior mesenteric artery: Moderate calcific plaque, mild stenosis. Inferior mesenteric artery: Unremarkable. Renal arteries: Severe calcific plaque of both proximal renal artery possible stenosis. PELVIC ARTERIES: Right Common Iliac: Heavily calcified and patent. Right External Iliac: Occluded Right Internal Iliac: Heavily calcified but does have flow. Left Common Iliac: Heavily calcified and also previously stented. Patent. Left External Iliac: Moderate calcific plaque but patent. Left Internal Iliac: Unremarkable. RIGHT LOWER EXTREMITY ARTERIES: Right Common Femoral: Fem-fem bypass graft is patent. Moderate calcific plaque and mild stenosis of the common femoral artery. Right Superficial Femoral: Diffuse moderate calcific plaque with areas of moderate to severe stenosis of the proximal SFA and distal SFA. Right Profunda Femoris: Unremarkable. Right Popliteal:Moderate eccentric calcific plaque with moderate stenosis throughout the popliteal artery. Right Anterior Tibial: Heavily calcified which limits evaluation. Believed to be patent. Right Tibioperoneal Trunk: Unremarkable. Right Posterior Tibial: Occluded proximal segment and reconstitutes. Most of the calcified which limits evaluation. Right Peroneal: Moderate calcific plaque but patent. Right dorsalis pedis : Unremarkable. LEFT LOWER EXTREMITY ARTERIES: Left Common Femoral: Moderate calcific plaque throughout the common femoral artery with mild stenosis. Left Superficial Femoral: Diffuse calcific plaque throughout the SFA with areas of near occlusion in the proximal segment and mild to severe stenosis in distal segment. Left Profunda Femoris: Unremarkable. Left Popliteal: Diffuse moderate calcific plaque with there is a moderate stenosis of the popliteal artery. Left Anterior Tibial: Heavily calcified which limits evaluation. Believed to be patent. Left Tibioperoneal Trunk: Unremarkable. Left Posterior Tibial: Heavily calcified. Areas of possible occlusion seen within the mid and distal posterior tibial artery. Left Peroneal: Moderate calcific plaque and patent. Left Dorsalis pedis: Unremarkable. NON-ANGIOGRAPHIC ASPECT OF THE EXAM: LOWER THORAX: Unremarkable. LIVER: Unremarkable. No gross lesion or ductal dilatation. GALLBLADDER AND BILE DUCTS: Unremarkable. PANCREAS: Unremarkable. No gross lesion or ductal dilatation. SPLEEN: Unremarkable. ADRENALS: Unremarkable. No mass. KIDNEYS AND URETERS: Unremarkable. No hydronephrosis. No solid mass. STOMACH AND BOWEL: Unremarkable. No obstruction. No gross mural thickening. APPENDIX: Normal appendix. PERITONEUM: Unremarkable. No free fluid. No free air. LYMPH NODES: Unremarkable. No enlarged lymph nodes. BLADDER: Unremarkable. REPRODUCTIVE: Unremarkable. BONES: No acute fracture. OTHER FINDINGS: None. IMPRESSION: CT ANGIOGRAM ABDOMEN/PELVIS: 1. Moderate calcific throughout abdominal aorta with no aneurysm stenosis. 2. Both iliac arteries are heavily calcified. Previous stenting left iliac artery is patent. The right external iliac artery is occluded. Left external iliac artery is patent. RIGHT LOWER EXTREMITY CT ANGIOGRAM: 1. FEM-FEM BYPASS GRAFT is patent. 2. Moderate calcific plaque of the common femoral artery with moderate stenosis. 3. SFA is diffusely calcified with areas of severe stenosis in the proximal and distal segments. 4. Popliteal artery has moderate calcific plaque and also moderate stenosis throughout. 5. Right runoff shows a patent peroneal artery. Anterior tibial artery is heavily calcified believed to be patent. The posterior tibial artery occludes in the proximal segment and reconstitutes and remains heavily calcified which limits evaluation. LEFT LOWER EXTREMITY CT ANGIOGRAM: 1. Moderate calcific plaque of the common femoral artery with mild stenosis. 2. SFA is diffusely calcified with area of near occlusion the proximal segment and also mild to severe stenosis in distal segments. 3. Popliteal artery is mild calcific plaque and also moderate stenosis throughout. 4. Left runoff shows a patent peroneal artery. Anterior tibial is heavily calcified but patent. The posterior tibial artery occludes in the distal segment.
--- NOTE | 2017-11-09 13:59 | CP.PCM.PN ---
Subjective - Date & Time of Evaluation Date of Evaluation: 11/09/17 Time of Evaluation: 13:59 - Subjective Subjective: CHIEF COMPLAINTS TODAY : afebrile, Still symptomatic with pain right lower extremity on ambulating and at rest Patient seen along with Dr. Daniels vascular surgery. Patient for Angio in am. ROS. HEENT : N. Resp : No SOB wheezing, cough Cardio : No CP, PND orthopnea GI : No abd. 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 Musculoskel : N Ext. : Pedal pulses intact, no edema or calf pain Derm : N Psych : N. PE. Pt. is alert awake in no distress. V.S As noted in the chart Head ,ear nose,throat and eyes : Normal. Neck : Supple with normal carotids. Lungs: Clear air entry. Heart : S1 & S2 normal . . No murmur. S4 + Abd : Soft non tender with normal bowel sounds. Neuro : Moves all ext. with no localized deficit. Ext : Positive for: pedal edema (TENDERNESS RIGHT POSTERIOR LOWER EXTREMITY WITH SWELLING AND CELLULITIS RIGHT MEDIAL MALLEOLUS.), pedal pulses present ( DISTANT. RIGHT FOOT APPEARS TO BE WARM.). +ve calf tenderness Derm : No rashes or decubitus ulcer. Radiology/Labs . reviewed Objective - Vital Signs/Intake and Output Vital Signs (last 24 hours): Temp Pulse Resp BP Pulse Ox 98.5 F 88 20 130/63 97 11/09/17 08:49 11/09/17 08:49 11/09/17 08:49 11/09/17 08:49 11/09/17 08:49 Intake and Output: 11/09/17 11/09/17 06:59 18:59 Intake Total 650 240 Balance 650 240 - Medications Medications: Current Medications Albuterol/Ipratropium (Duoneb 3 Mg/0.5 Mg (3 Ml) Ud) 3 ml INH RQ6 [facility] Last Admin: 11/09/17 13:46 Dose: Not Given Alprazolam (Xanax) 0.25 mg PO DAILY PRN PRN Reason: Anxiety Stop: 11/14/17 10:01 Bisoprolol Fumarate/HCTZ (Ziac 5-6.25 Mg) 1 tab PO DAILY [facility] Last Admin: 11/09/17 11:39 Dose: 1 tab Cilostazol (Pletal) 50 mg PO BID [facility] Last Admin: 11/09/17 11:37 Dose: 50 mg Clopidogrel Bisulfate (Plavix) 75 mg PO DAILY [facility] Last Admin: 11/09/17 11:37 Dose: 75 mg Docusate Sodium (Colace) 200 mg PO DAILY [facility] Last Admin: 11/09/17 11:35 Dose: 200 mg Enoxaparin Sodium (Lovenox) 40 mg SC DAILY [facility] Last Admin: 11/09/17 11:37 Dose: 40 mg Vancomycin HCl 1 gm/ Sodium (Chloride) 250 mls @ 166.7 mls/hr IVPB Q24H [facility] Last Admin: 11/08/17 16:09 Dose: 166.7 mls/hr Insulin Aspart (Novolog) 0 unit SC ACHS [facility] PRN Reason: Protocol Last Admin: 11/09/17 12:09 Dose: Not Given Losartan Potassium (Cozaar) 25 mg PO DAILY [facility] Last Admin: 11/09/17 11:39 Dose: 25 mg Rosuvastatin Calcium (Crestor) 5 mg PO HS [facility] Last Admin: 11/08/17 22:07 Dose: 5 mg Tramadol HCl (Ultram) 50 mg PO BID PRN PRN Reason: Pain, moderate (4-7) Last Admin: 11/09/17 11:33 Dose: 50 mg - Labs Labs: 11/08/17 09:15 11/08/17 09:15 Assessment and Plan (1) Cellulitis Assessment & Plan: CONTINUE iv VANCOMYCIN 1 G ONCE A DAY DAILY 11/06/17. F/U VANCO TROUGH LEVEL PRIOR TO 4TH DOSE. MONITOR RENAL FNCTION CLOSELY. Status: Acute (2) Joint swelling Assessment & Plan: RT. MEDIAL MALLEOLUS STS NOTED. ELEVATE RT LE. Status: Acute (3) PVD (peripheral vascular disease) Status: Acute (4) Status post femorofemoral bypass surgery Assessment & Plan: S/P HX OF FEM-FEM BYPASS 01/2017. WITH STENTS LT SIDE PATIENT FOR ANGIOGRAM IN A.M. PER DR. Daniels. Status: Acute (5) Diabetes mellitus Status: Chronic
--- NOTE | 2017-11-09 15:24 | VASCLAB ---
STUDY DESCRIPTION: HISTORY: cellulitis PRIORS: None. TECHNIQUE: Pulse volume recording waveforms and segmental pressures of bilateral lower extremities at multiple levels were obtained. Ankle Brachial Indices (ABIs) were calculated. Report prepared by KALLI Thorpe, RVT RIGHT LOWER EXTREMITY: * Brachial artery: Pressure - 139 mmHg. * High thigh: Pressure - mmHg: Ratio - : PVR waveform - Reduced * Low thigh: Pressure - mmHg: Ratio - PVR waveform: Reduced * Calf: Pressure - mmHg: Ratio - PVR waveform: None * Posterior tibial Artery: Pressure - mmHg: Ratio - PVR waveform: None * Dorsalis pedis Artery: Pressure - mmHg: Ratio - PVR waveform: None * Great toe: Pressure - mmHg: Ratio - PVR waveform: Ankle brachial index (ALEXANDER): LEFT LOWER EXTREMITY: * Brachial artery: Pressure - 135 mmHg. * High thigh: Pressure - mmHg: Ratio - : PVR waveform - Reduced * Low thigh: Pressure - mmHg: Ratio - PVR waveform: Reduced * Calf: Pressure - mmHg: Ratio - PVR waveform: Reduced * Posterior tibial Artery: Pressure - 49 mmHg: Ratio - 0.35 PVR waveform: None * Dorsalis pedis Artery: Pressure - 51 mmHg: Ratio - 0.37 PVR waveform: None * Great toe: Pressure - mmHg: Ratio - PVR waveform: Ankle brachial index (ALEXANDER): 0.37 OTHER FINDINGS: ADELAIDE Rubio notified about the findings. IMPRESSION: Right: Unable to obtain the right ankle brachial index due to absent audible pulses. However, pulse volume recording waveforms are suggestive of severe arterial disease of the right lower extremity, from iliac to distal small arterial levels. Left: This exam reveals severely decreased perfusion of the left lower extremity, noted from iliac to distal small artery levels.
--- NOTE | 2017-11-09 17:17 | NM ---
PROCEDURE: Three-phase bone scan HISTORY: rt ankle cellulitis/old fracture rt ankle COMPARISON: 11/06/2017 plain film radiographs right ankle TECHNIQUE: Following administration of 24.1 miCu of Tc MDP multiplanar three-phase bone scan obtained attention right lower extremity FINDINGS: Flow component: Unremarkable Blood pool component: No focal or diffuse abnormalities Delayed images at 3:00: Within normal limits Other findings: None. IMPRESSION: No evidence of acute osseous process.
[2017-11-09 19:22] VITALS: RESP 20
[2017-11-10] MEDS: Albuterol-Ipratrop 3 mg / 0.5 (3 ml) UD INH SCH ×4 (01:56→19:25)
--- NOTE | 2017-11-10 02:00 | PN ---
DATE: 11/09/2017 DAILY PROGRESS NOTE SUBJECTIVE: Patient is seen today on 11/09/2017. She is not in any cardiopulmonary distress, and pain and swelling of the right lower extremity is decreasing. PHYSICAL EXAMINATION: VITAL SIGNS: Blood pressure 130/63, temperature 98.5, respiratory rate 20 and pulse 88. HEENT: Pupils equal, reactive to light. Normal-appearing mucosa of the conjunctivae, oropharynx and nasal membrane mucosa. NECK: Supple. No JVD. No carotid bruit. No lymph node. No thyromegaly. CHEST AND LUNGS: Bilateral symmetrical expansion. CARDIOVASCULAR SYSTEM: PMI not localized. S1 and S2. No additional sounds. ABDOMEN: Normoactive bowel sounds. No tenderness. No organomegaly. No masses. EXTREMITIES: Decreased swelling and redness on the right lower extremity. CENTRAL NERVOUS SYSTEM: Alert, awake, oriented x3. No neurological deficit could be appreciated. ASSESSMENT: Severe peripheral vascular disease, smoker, hypertension, type 2 diabetes mellitus. SUGGESTIONS: Dr. Rankin advised angiogram, which will be done. Continue current medications and management. Kd Ledesma MD
[2017-11-10] MEDS ORDERED: Iodixanol 320 MG/ML 200 ML BOTTLE IV ONE (07:34)
[2017-11-10] MEDS ORDERED: Lidocaine 2% Inj (20ml) ONE (07:35)
[2017-11-10] MEDS ORDERED: Midazolam 2 MG/2 ML VIAL ONE ×3 (08:17→09:11)
[2017-11-10] MEDS ORDERED: Vancomycin 1 g Inj ONE (08:18)
[2017-11-10] MEDS ORDERED: Etomidate 20 mg/10ml Inj IV ONE ×2 (08:18→09:12)
[2017-11-10] MEDS: (Novolog) Insulin Aspart, Recombinant 100 u/ml 10 ml vial SC SCH ×4 (08:24→22:17)
--- NOTE | 2017-11-10 09:38 | PCM.SURG1 ---
Surgeon's Initial Post Op Note - Surgeon's Notes Surgeon: Dr. Rankin Travel Consultant: Lee PGY1 Type of Anesthesia: IV Sedation Pre-Operative Diagnosis: Peripheral vascular disease, s/p fem-fem bypass Operative Findings: see operative report Post-Operative Diagnosis: Peripheral vascular disease, s/p fem-fem bypass Operation Performed: Balloon/stent angioplasty of common femoral and balloon angioplast of SFA Specimen/Specimens Removed: N/A Estimated Blood Loss: EBL {In ML}: 10 Blood Products Given: N/A Drains Used: No Drains Post-Op Condition: Good Date of Surgery/Procedure: 11/10/17 Time of Surgery/Procedure: 08:00
[2017-11-10] MEDS: Cilostazol 50 mg Tab UD PO SCH ×2 (10:20→18:41)
[2017-11-10] MEDS: Bisoprolol-HCTZ 5-6.25 mg Tab PO SCH (10:20)
[2017-11-10] MEDS ORDERED: Heparin25000 units/250ml 1/2NS 25,000 UNITS/250 ML BAG IV PRN ×2 (10:41→13:30)
[2017-11-10] MEDS: Dextrose 5%/0.45% NS 1,000 ML IV SCH (11:30)
--- NOTE | 2017-11-10 12:18 | VAS ---
DATE: 11/10/2017 PREOPERATIVE DIAGNOSIS: Ischemic ulcer, right leg. PROCEDURE CARRIED OUT: 1. Angiogram via puncture of crossover graft. 2. Balloon angioplasty of right common femoral artery, graft anastomosis. 3. Placement of right superficial femoral artery stent, 6 x 40 stent. SURGEON: Terrell Rankin Jr., MD OIL DISPATCHER: None. ANESTHESIOLOGIST: Valerie Chandra CRNA. INDICATIONS: A 72-year-old woman with history of previous left to right fem-fem bypass. Imaging suggested the patient had diffuse disease throughout her SFA. OPERATIVE FINDINGS: There was a high-grade 90 plus percent stenosis at the right common femoral graft anastomosis. In addition, a completion of this balloon angioplasty there was occlusion of the proximal portion of the superficial femoral artery. Runoff was via the peroneal artery distally. There was some disease throughout the entire SFA and the popliteal. Left leg was not imaged. PROCEDURE: The patient was given local anesthesia. Intravenous antibiotics were administered and the graft was punctured using micropuncture technique. The guidewire was advanced over it. Films were taken showing the location of the stenosis at the anastomosis. In addition, films were taken down the leg to the level of the midcalf. Subsequently, we were able to cross this with the use of a stiff-angle guidewire and positioned Wagner wire after the patient was heparinized and carried out initially a balloon angioplasty with a 4 and then a 6 mm balloon. We then subsequently dilated this. The completion film showed occlusion of the superficial femoral artery and we then ballooned this initially with 4 mm balloon and deployed a 6 mm stent in the proximal portion of the superficial femoral artery. At the completion, films were excellent. It showed brisk flow into the legs. The additional films were taken down the legs showing increased flow throughout the leg. After this, we gently applied pressure to the puncture site, which was in the left groin. Subsequently, it appeared that there was diminution of pulse to the graft and we carried out ultrasound examination, which showed pulsatile flow throughout the graft. Procedure was then terminated. The operation carried out was angiogram via puncture of crossover graft, balloon angioplasty using a 6 mm balloon of the common femoral artery and deployment of right superficial femoral artery stent. Terrell Rankin Jr., MD cc: Kd Ledesma MD [facility] # [id number]
[2017-11-10] MEDS: Vancomycin 1 gm/NS 200 ml 1 GM/200 ML BAG IVPB SCH (16:42)
--- NOTE | 2017-11-10 22:31 | CP.PCM.PN ---
Subjective - Date & Time of Evaluation Date of Evaluation: 11/10/17 Time of Evaluation: 22:31 - Subjective Subjective: CHIEF COMPLAINTS TODAY : S/P OR TODAY. seen postoperatively. s/p Balloon/stent angioplasty of common femoral and balloon angioplast of SFA Sitting up on the bed. Offers no new complaints. ROS. HEENT : N. Resp : No SOB wheezing, cough Cardio : No CP, PND orthopnea GI : No abd. Pain, n/v CRITICAL CARE PARAMEDIC : No headache , focal deficit. Musculoskel : N Ext. : Pedal pulses intact, no edema or calf pain Derm : N Psych : N. PE. Pt. is alert awake in no distress. V.S As noted in the chart Head ,ear nose,throat and eyes : Normal. Neck : Supple with normal carotids. Lungs: Clear air entry. Heart : S1 & S2 normal . . No murmur. S4 + Abd : Soft non tender with normal bowel sounds. Neuro : Moves all ext. with no localized deficit. Ext : Positive for: pedal edema (TENDERNESS RIGHT POSTERIOR LOWER EXTREMITY WITH SWELLING AND CELLULITIS RIGHT MEDIAL MALLEOLUS.), pedal pulses present ( DISTANT. RIGHT FOOT APPEARS TO BE WARM.). +ve calf tenderness post -operative11/10/17. Derm : No rashes or decubitus ulcer. Radiology/Labs . reviewed Objective - Vital Signs/Intake and Output Vital Signs (last 24 hours): Temp Pulse Resp BP Pulse Ox 97.9 F 88 20 130/56 L 95 11/10/17 15:59 11/10/17 15:59 11/10/17 15:59 11/10/17 15:59 11/10/17 15:59 Intake and Output: 11/10/17 11/11/17 18:59 06:59 Intake Total 710 Balance 710 - Medications Medications: Current Medications Albuterol/Ipratropium (Duoneb 3 Mg/0.5 Mg (3 Ml) Ud) 3 ml INH RQ6 [facility] Last Admin: 11/10/17 19:25 Dose: 3 ml Alprazolam (Xanax) 0.25 mg PO DAILY PRN PRN Reason: Anxiety Stop: 11/14/17 10:01 Bisoprolol Fumarate/HCTZ (Ziac 5-6.25 Mg) 1 tab PO DAILY [facility] Last Admin: 11/10/17 10:20 Dose: Not Given Cilostazol (Pletal) 50 mg PO BID [facility] Last Admin: 11/10/17 18:41 Dose: 50 mg Clopidogrel Bisulfate (Plavix) 75 mg PO DAILY [facility] Last Admin: 11/09/17 11:37 Dose: 75 mg Docusate Sodium (Colace) 200 mg PO DAILY [facility] Last Admin: 11/10/17 10:20 Dose: Not Given Dextrose/Sodium Chloride (Dextrose 5%/0.45% Ns 1000 Ml) 1,000 mls @ 75 mls/hr IV .[id number] [facility] Last Admin: 11/10/17 11:30 Dose: 75 mls/hr Vancomycin/Sodium Chloride (Vancomycin 1 Gm/Ns 200 Ml) 1 gm in 200 mls @ 133.333 mls/hr IVPB Q24H [facility] Stop: 11/15/17 16:31 Last Admin: 11/10/17 16:42 Dose: 133.333 mls/hr Heparin Sodium/Sodium Chloride (Heparin 04594 Units/250ml 1/2 Normal Saline) 25 ,000 units in 250 mls @ 9.87 mls/hr IV .Q24H PRN; Protocol; 17 UNITS/KG/HR PRN Reason: ADJUST RATE PER PROTOCOL Last Admin: 11/10/17 14:22 Dose: 17 units/kg/hr, 9.87 mls/hr Insulin Aspart (Novolog) 0 unit SC ACHS [facility] PRN Reason: Protocol Last Admin: 11/10/17 22:17 Dose: Not Given Losartan Potassium (Cozaar) 25 mg PO DAILY [facility] Last Admin: 11/10/17 10:20 Dose: Not Given Rosuvastatin Calcium (Crestor) 5 mg PO HS [facility] Last Admin: 11/10/17 22:18 Dose: 5 mg Tramadol HCl (Ultram) 50 mg PO BID PRN PRN Reason: Pain, moderate (4-7) Last Admin: 11/10/17 22:21 Dose: 50 mg - Labs Labs: 11/08/17 09:15 11/08/17 09:15 APTT 77 SECONDS (21-34) H D 11/10/17 21:54 Assessment and Plan (1) Cellulitis Assessment & Plan: POSTOPERATIVE 11/10/17 CONTINUE iv VANCOMYCIN 1 G ONCE A DAY DAILY 11/06/17. F/U VANCO TROUGH LEVEL PRIOR TO 4TH DOSE. MONITOR RENAL FNCTION CLOSELY. Status: Acute (2) Joint swelling Status: Acute (3) PVD (peripheral vascular disease) Assessment & Plan: s/p Balloon/stent angioplasty of common femoral and balloon angioplast of SFA 11/10/17. POSTOPERATIVE CARE PER VASCULAR SURGERY. Status: Acute (4) Status post femorofemoral bypass surgery Status: Acute (5) Diabetes mellitus Status: Chronic
[2017-11-11] MEDS: Dextrose 5%/0.45% NS 1,000 ML IV SCH ×2 (00:40→13:02)
--- NOTE | 2017-11-11 01:04 | PN ---
DATE: 11/10/2017 SUBJECTIVE: The patient is seen today on 11/10/2017. She is status post vascular procedure for clogged graft. PHYSICAL EXAMINATION: VITAL SIGNS: Blood pressure is 130/56, temperature 97.9, respiratory rate 20, and pulse 88. HEENT: Pupils equal, reactive to light. Normal-appearing mucosa of the conjunctivae, oropharynx, and nasal membrane mucosa. NECK: Supple. No JVD. No carotid bruit. No lymph node. No thyromegaly. CHEST AND LUNGS: Bilateral symmetrical expansion. Good air exchange. No rales, no rhonchi. CARDIOVASCULAR SYSTEM: PMI not localized. S1 and S2. No additional sounds. ABDOMEN: Normoactive bowel sounds. No tenderness. No organomegaly. No masses. EXTREMITIES: No cyanosis, no clubbing. There is slight swelling of the right lower extremity with a healing wound. CENTRAL NERVOUS SYSTEM: Alert, awake, oriented x3. No neurological deficit could be appreciated. ASSESSMENT: 1. Cellulitis of the right lower extremity, peripheral vascular disease with status post clogged endovascular graft, status post revascularization procedure to the right lower extremity. 2. Type 2 diabetes mellitus. 3. Hypertension. PLAN: Continue current IV antibiotics. Follow recommendations of Vascular Surgery as well as ID and start physical therapy and plan to discharge to rehabilitation. Kd Ledesma MD
[2017-11-11] MEDS: Albuterol-Ipratrop 3 mg / 0.5 (3 ml) UD INH SCH ×3 (01:43→13:43)
[2017-11-11] MEDS: (Novolog) Insulin Aspart, Recombinant 100 u/ml 10 ml vial SC SCH ×3 (08:40→17:08)
--- NOTE | 2017-11-11 09:56 | CP.PCM.PN ---
Subjective - Date & Time of Evaluation Date of Evaluation: 11/11/17 Time of Evaluation: 09:53 - Subjective Subjective: Surgery Pt s&e. Pt underwent angioplasty yesterday and tolerated it well. Dopplerable pulses. Pain controlled. Objective - Vital Signs/Intake and Output Vital Signs (last 24 hours): Temp Pulse Resp BP Pulse Ox 97.9 F 96 H 20 157/57 H 97 11/11/17 08:00 11/11/17 08:00 11/11/17 08:00 11/11/17 08:00 11/11/17 08:00 Intake and Output: 11/11/17 11/11/17 06:59 18:59 Intake Total 1800 Balance 1800 - Medications Medications: Current Medications Albuterol/Ipratropium (Duoneb 3 Mg/0.5 Mg (3 Ml) Ud) 3 ml INH RQ6 [facility] Last Admin: 11/11/17 07:29 Dose: 3 ml Alprazolam (Xanax) 0.25 mg PO DAILY PRN PRN Reason: Anxiety Stop: 11/14/17 10:01 Bisoprolol Fumarate/HCTZ (Ziac 5-6.25 Mg) 1 tab PO DAILY [facility] Last Admin: 11/10/17 10:20 Dose: Not Given Cilostazol (Pletal) 50 mg PO BID [facility] Last Admin: 11/10/17 18:41 Dose: 50 mg Clopidogrel Bisulfate (Plavix) 75 mg PO DAILY [facility] Last Admin: 11/09/17 11:37 Dose: 75 mg Docusate Sodium (Colace) 200 mg PO DAILY [facility] Last Admin: 11/10/17 10:20 Dose: Not Given Dextrose/Sodium Chloride (Dextrose 5%/0.45% Ns 1000 Ml) 1,000 mls @ 75 mls/hr IV .[id number] [facility] Last Admin: 11/11/17 00:40 Dose: 75 mls/hr Vancomycin/Sodium Chloride (Vancomycin 1 Gm/Ns 200 Ml) 1 gm in 200 mls @ 133.333 mls/hr IVPB Q24H [facility] Stop: 11/15/17 16:31 Last Admin: 11/10/17 16:42 Dose: 133.333 mls/hr Insulin Aspart (Novolog) 0 unit SC ACHS [facility] PRN Reason: Protocol Last Admin: 11/11/17 08:40 Dose: Not Given Losartan Potassium (Cozaar) 25 mg PO DAILY [facility] Last Admin: 11/10/17 10:20 Dose: Not Given Rosuvastatin Calcium (Crestor) 5 mg PO HS [facility] Last Admin: 11/10/17 22:18 Dose: 5 mg Tramadol HCl (Ultram) 50 mg PO BID PRN PRN Reason: Pain, moderate (4-7) Last Admin: 11/11/17 06:02 Dose: 50 mg - Labs Labs: 11/08/17 09:15 11/08/17 09:15 APTT 91 SECONDS (21-34) H 11/11/17 07:17 - Constitutional Appears: No Acute Distress - Head Exam Head Exam: ATRAUMATIC, NORMAL INSPECTION, NORMOCEPHALIC - Eye Exam Eye Exam: EOMI, Normal appearance, PERRL Pupil Exam: NORMAL ACCOMODATION, PERRL - ENT Exam ENT Exam: Mucous Membranes Moist, Normal Exam - Neck Exam Neck Exam: Full ROM, Normal Inspection. absent: Lymphadenopathy - Respiratory Exam Respiratory Exam: Clear to Ausculation Bilateral, NORMAL BREATHING PATTERN - Cardiovascular Exam Cardiovascular Exam: REGULAR RHYTHM, +S1, +S2. absent: Murmur - GI/Abdominal Exam GI & Abdominal Exam: Soft, Normal Bowel Sounds. absent: Tenderness - Extremities Exam Extremities Exam: Full ROM, Normal Capillary Refill, Normal Inspection, Pedal Edema, Tenderness. absent: Joint Swelling Additional comments: Groin C/D/I. dopplerable distal pulses. - Back Exam Back Exam: NORMAL INSPECTION - Neurological Exam Neurological Exam: Alert, Awake, CN II-XII Intact, Normal Gait, Oriented x3 - Psychiatric Exam Psychiatric exam: Normal Affect, Normal Mood - Skin Skin Exam: Dry, Intact, Normal Color, Warm Assessment and Plan - Assessment and Plan (Free Text) Assessment: POD 1 s/p angio Balloon/stent angioplasty of common femoral and balloon angioplast of SFA -Clear for DC for surgical standpoint. -FU at Dr. Carrillo's office in [address] Carrillo
[2017-11-11] MEDS: Bisoprolol-HCTZ 5-6.25 mg Tab PO SCH (11:13)
[2017-11-11] MEDS: Cilostazol 50 mg Tab UD PO SCH ×2 (11:14→17:07)
--- NOTE | 2017-11-11 16:17 | CP.PCM.PN ---
Subjective - Date & Time of Evaluation Date of Evaluation: 11/11/17 Time of Evaluation: 16:15 - Subjective Subjective: REC'D CALL FROM DR. BARTH TO D/C PT TODAY. PT STABLE. HAS BEEN CLEARED BY SURGICAL TEAM AND TO F/U WITH DR. CUNNINGHAM IN THE OFFICE IN 1 WEEK. I DISCUSSED THIS WITH DR. DAWSON; PER HER RECS PT TO CONTINUE VANCO 1GM IV Q DAILY X7 MORE DAYS (11/12/17-11/18/17). PT TO BE D/C WITH 2 WORKING HEPLOCKS FOR IV ABX. [facility]. NO FURTHER ORDERS. Objective - Vital Signs/Intake and Output Vital Signs (last 24 hours): Temp Pulse Resp BP Pulse Ox 97.9 F 89 20 157/57 H 99 11/11/17 08:00 11/11/17 11:35 11/11/17 08:00 11/11/17 11:35 11/11/17 11:35 Intake and Output: 11/11/17 11/11/17 06:59 18:59 Intake Total 1800 1250 Balance 1800 1250 - Medications Medications: Current Medications Albuterol/Ipratropium (Duoneb 3 Mg/0.5 Mg (3 Ml) Ud) 3 ml INH RQ6 [facility] Last Admin: 11/11/17 13:43 Dose: 3 ml Alprazolam (Xanax) 0.25 mg PO DAILY PRN PRN Reason: Anxiety Stop: 11/14/17 10:01 Bisoprolol Fumarate/HCTZ (Ziac 5-6.25 Mg) 1 tab PO DAILY [facility] Last Admin: 11/11/17 11:13 Dose: 1 tab Cilostazol (Pletal) 50 mg PO BID [facility] Last Admin: 11/11/17 11:14 Dose: 50 mg Clopidogrel Bisulfate (Plavix) 75 mg PO DAILY [facility] Last Admin: 11/11/17 11:13 Dose: 75 mg Docusate Sodium (Colace) 200 mg PO DAILY [facility] Last Admin: 11/11/17 11:14 Dose: 200 mg Dextrose/Sodium Chloride (Dextrose 5%/0.45% Ns 1000 Ml) 1,000 mls @ 75 mls/hr IV .[id number] [facility] Last Admin: 11/11/17 13:02 Dose: 75 mls/hr Vancomycin/Sodium Chloride (Vancomycin 1 Gm/Ns 200 Ml) 1 gm in 200 mls @ 133.333 mls/hr IVPB Q24H [facility] Stop: 11/15/17 16:31 Last Admin: 11/10/17 16:42 Dose: 133.333 mls/hr Insulin Aspart (Novolog) 0 unit SC ACHS [facility] PRN Reason: Protocol Last Admin: 11/11/17 12:30 Dose: 2 unit Losartan Potassium (Cozaar) 25 mg PO DAILY [facility] Last Admin: 11/11/17 11:14 Dose: 25 mg Rosuvastatin Calcium (Crestor) 5 mg PO HS [facility] Last Admin: 11/10/17 22:18 Dose: 5 mg Tramadol HCl (Ultram) 50 mg PO BID PRN PRN Reason: Pain, moderate (4-7) Last Admin: 11/11/17 06:02 Dose: 50 mg - Labs Labs: 11/08/17 09:15 11/08/17 09:15 APTT 91 SECONDS (21-34) H 11/11/17 07:17
--- NOTE | 2017-11-11 16:17 | CP.PCM.PN ---
Subjective - Date & Time of Evaluation Date of Evaluation: 11/11/17 Time of Evaluation: 16:17 - Subjective Subjective: CHIEF COMPLAINTS TODAY : S/P OR 11/10 AFEBRILE s/p Balloon/stent angioplasty of common femoral and balloon angioplast of SFA Offers no new complaints. PT FOR BRYANT TODAY ROS. HEENT : N. Resp : No SOB wheezing, cough Cardio : No CP, PND orthopnea GI : No abd. Pain, n/v STEEPLECHASE JOCKEY : No headache , focal deficit. Musculoskel : N Ext. : Pedal pulses intact, no edema or calf pain Derm : N Psych : N. PE. Pt. is alert awake in no distress. V.S As noted in the chart Head ,ear nose,throat and eyes : Normal. Neck : Supple with normal carotids. Lungs: Clear air entry. Heart : S1 & S2 normal . . No murmur. S4 + Abd : Soft non tender with normal bowel sounds. Neuro : Moves all ext. with no localized deficit. Ext : Positive for: pedal edema (TENDERNESS RIGHT POSTERIOR LOWER EXTREMITY WITH SWELLING AND CELLULITIS RIGHT MEDIAL MALLEOLUS.), pedal pulses present ( RIGHT FOOT APPEARS TO BE WARM.). +ve calf tenderness post -operative 11/10/17. Derm : No rashes or decubitus ulcer. Radiology/Labs . reviewed Objective - Vital Signs/Intake and Output Vital Signs (last 24 hours): Temp Pulse Resp BP Pulse Ox 97.9 F 89 20 157/57 H 99 11/11/17 08:00 11/11/17 11:35 11/11/17 08:00 11/11/17 11:35 11/11/17 11:35 Intake and Output: 11/11/17 11/11/17 06:59 18:59 Intake Total 1800 1250 Balance 1800 1250 - Medications Medications: Current Medications Albuterol/Ipratropium (Duoneb 3 Mg/0.5 Mg (3 Ml) Ud) 3 ml INH RQ6 [facility] Last Admin: 11/11/17 13:43 Dose: 3 ml Alprazolam (Xanax) 0.25 mg PO DAILY PRN PRN Reason: Anxiety Stop: 11/14/17 10:01 Bisoprolol Fumarate/HCTZ (Ziac 5-6.25 Mg) 1 tab PO DAILY [facility] Last Admin: 11/11/17 11:13 Dose: 1 tab Cilostazol (Pletal) 50 mg PO BID [facility] Last Admin: 11/11/17 11:14 Dose: 50 mg Clopidogrel Bisulfate (Plavix) 75 mg PO DAILY [facility] Last Admin: 11/11/17 11:13 Dose: 75 mg Docusate Sodium (Colace) 200 mg PO DAILY [facility] Last Admin: 11/11/17 11:14 Dose: 200 mg Dextrose/Sodium Chloride (Dextrose 5%/0.45% Ns 1000 Ml) 1,000 mls @ 75 mls/hr IV .[id number] [facility] Last Admin: 11/11/17 13:02 Dose: 75 mls/hr Vancomycin/Sodium Chloride (Vancomycin 1 Gm/Ns 200 Ml) 1 gm in 200 mls @ 133.333 mls/hr IVPB Q24H [facility] Stop: 11/15/17 16:31 Last Admin: 11/10/17 16:42 Dose: 133.333 mls/hr Insulin Aspart (Novolog) 0 unit SC ACHS [facility] PRN Reason: Protocol Last Admin: 11/11/17 12:30 Dose: 2 unit Losartan Potassium (Cozaar) 25 mg PO DAILY [facility] Last Admin: 11/11/17 11:14 Dose: 25 mg Rosuvastatin Calcium (Crestor) 5 mg PO HS [facility] Last Admin: 11/10/17 22:18 Dose: 5 mg Tramadol HCl (Ultram) 50 mg PO BID PRN PRN Reason: Pain, moderate (4-7) Last Admin: 11/11/17 06:02 Dose: 50 mg - Labs Labs: 11/08/17 09:15 11/08/17 09:15 APTT 91 SECONDS (21-34) H 11/11/17 07:17 Assessment and Plan (1) Cellulitis Assessment & Plan: POSTOPERATIVE 11/10/17 CONTINUE iv VANCOMYCIN 1 G ONCE A DAY DAILY 11/06/17. X IWK MORE F/U VANCO TROUGH LEVEL PRIOR TO 4TH DOSE. MONITOR RENAL FNCTION CLOSELY. PT FOR BRYANT. WILL BE F/U BY PMD. Status: Acute (2) Joint swelling Status: Acute (3) PVD (peripheral vascular disease) Assessment & Plan: S/P Balloon/stent angioplasty of common femoral and balloon angioplast of SFA 11/10/17. POSTOPERATIVE CARE PER VASCULAR SURGERY. CASE DISCUSSED W BALLOON SELLER MS PIPER. Status: Acute Status: Acute (4) Status post femorofemoral bypass surgery Status: Acute (5) Diabetes mellitus Status: Chronic
[2017-11-11 16:19] VITALS: BP 125/63; PULSE 82; TEMP 98.3; O2SAT 97
[2017-11-11] MEDS: Vancomycin 1 gm/NS 200 ml 1 GM/200 ML BAG IVPB SCH (16:44)
--- NOTE | 2017-11-12 10:46 | DS ---
REASON FOR ADMISSION: This is a 72-year-old female, who was admitted for cellulitis and ischemia of the right lower extremity. COURSE OF HOSPITALIZATION: The patient was admitted to medical floor and she was started on IV antibiotics. The patient had a surgical consultation done by Dr. Mejias and the patient underwent angiogram. The patient was found to have occluded graft that was reopened and the patient was discharged to subacute rehabilitation at transitional care unit of [facility] to continue physical therapy, occupational therapy and local wound treatment, and to continue her current medications. FINAL DIAGNOSES: Severe peripheral vascular disease of right lower extremity, cellulitis, hypertension, type 2 diabetes mellitus, smoker, COPD. Cortney MD Baltazar
== END 2017-11-11 18:59 | DRG 253 ==
LOC: C.ER 13:06 → C.9E 16:09 → C.3T 16:53
PROVIDERS: ADMIT Internal Medicine; ATTEND Internal Medicine
PROC: 047K3DZ Dilation of Right Femoral Artery with Intraluminal Device, Percutaneous Approach (ICD-10-PCS; principal; 2017-11-10 12:00)
DX: E11.51 Type 2 diabetes mellitus with diabetic peripheral angiopathy without gangrene (principal); L03.115 Cellulitis of right lower limb; J44.9 Chronic obstructive pulmonary disease, unspecified; F17.210 Nicotine dependence, cigarettes, uncomplicated; I10 Essential (primary) hypertension; Z68.23 Body mass index [BMI] 23.0-23.9, adult; Z79.4 Long term (current) use of insulin; I77.1 Stricture of artery

== ENCOUNTER 2018-01-28 09:37 | Day surgery (SDC) | payer MEDICARE ==
[2018-01-28] MEDS ORDERED: Midazolam 2 MG/2 ML VIAL ONE ×2 (11:59→14:05)
[2018-01-28] MEDS ORDERED: Albuterol HFA 90 mcg/actuation (8 g) ONE (12:25)
--- NOTE | 2018-01-28 14:27 | PCM.SURG1 ---
Surgeon's Initial Post Op Note - Surgeon's Notes Surgeon: michael Gas Turbine Mechanic: 0 Type of Anesthesia: IV Sedation Anesthesia Administered By: loc Pre-Operative Diagnosis: pvd. ulcer ofcalf/ inability to image previous intervention Operative Findings: focal 80% stenosis proximal popliteal. 80 % pronimal in stent stenosis Post-Operative Diagnosis: same Operation Performed: angiogram right leg. pathway atherectomy of popliteal and proximal stent ( instent ) Specimen/Specimens Removed: 0 Estimated Blood Loss: EBL {In ML}: 50 Blood Products Given: N/A Drains Used: No Drains Post-Op Condition: Good Date of Surgery/Procedure: 01/28/18 Time of Surgery/Procedure: 14:29
--- NOTE | 2018-01-29 07:39 | VAS ---
DATE: 01/28/2018 OPERATIVE ANGIOGRAM REPORT PREOPERATIVE DIAGNOSES: Ulcer, right calf. History of peripheral vascular disease, previous right to left fem-fem bypass with previous stenosis at the right graft to common femoral artery anastomosis. SURGEON: Terrell Rankin Jr., MD PROOF INSPECTOR: None. ANESTHESIOLOGIST: Mr. Angel. ANESTHESIA: Local with sedation. INDICATIONS: The patient is a 72-year-old woman with history of peripheral vascular interventions, who presents with ischemic ulcerations of the leg. She underwent previous intervention where a fem-fem bypass was done and then subsequently, we found that there was a high-grade stenosis at the anastomotic area with the stenosis of the SFA below this. This was treated few months ago. However, subsequent imaging tests were difficult to interpret and for this they recommended another angiogram will be done. OPERATIVE FINDINGS: 1. There was an in-stent stenosis of the stent placed in the proximal SFA on the right side. 2. There was an 80% stenosis in the proximal portion of the popliteal artery on the right side. The left side was not imaged due to the technical problem associated with the fem-fem graft procedure. Apart from this, the vessels were open. A subsequent angiogram showed that there was satisfactory atherectomy and it was satisfactory after a 5 mm drug-coated balloon was deployed here and a 6 mm drug-coated balloon was deployed in the proximal portion and also at the perianastomotic area. The final completion pictures were excellent without any residual stenosis. The were limited via the anterior tibial and perhaps the peroneal. Then, the vessels going and the foot films are best reviewed by anyone interested, in which vessels are opened. Subsequent to this, the catheter was removed from the groin and the pressure applied. Blood loss for the procedure was 50 to 100 mL and the operation carried out was right femoral angiogram, balloon angioplasty and atherectomy of the right popliteal artery through this 5 mm drug-coated balloon and a pathway device and balloon angioplasty of in-stent stenosis of the proximal SFA graft. It should be noted that this was more critical; however, after a dilator had been passed through it, the 7-Turkish dilator, we did not feel there was any need for atherectomy and this balloon was 6 mm. Terrell Rankin Jr., MD cc: Dr. Ledesma [facility] # [id number]
== END 2018-01-28 18:29 | disposition home or self-care (01) ==
LOC: C.SPRAD 09:37
PROVIDERS: ATTEND Surgery Vascular Surgery
DX: T82.856A Stenosis of peripheral vascular stent, initial encounter (principal); I70.201 Unspecified atherosclerosis of native arteries of extremities, right leg; Y83.8 Other surgical procedures as the cause of abnormal reaction of the patient, or of later complication, without mention of misadventure at the time of the procedure; E11.622 Type 2 diabetes mellitus with other skin ulcer; L97.219 Non-pressure chronic ulcer of right calf with unspecified severity; I10 Essential (primary) hypertension; J44.9 Chronic obstructive pulmonary disease, unspecified; F17.200 Nicotine dependence, unspecified, uncomplicated

== ENCOUNTER 2018-02-17 09:54 | Inpatient (IN) | payer MEDICARE ==
[2018-02-17 09:54] VITALS: BMI 23.3
[2018-02-17] MEDS ORDERED: Sodium Chloride 0.9% 1,000 ML IV ONE (10:18)
[2018-02-17] MEDS ORDERED: Sodium Chloride 0.9% 1,000 ML ONE (10:28)
[2018-02-17 10:29] LABS: BASO # 0.1 K/uL (0.0-0.2); BASO % 0.3 % (0.0-2.0); HEMOGLOBIN 11.5 g/dL (11.0-16.0); LYMPH # 0.8 K/uL (1.0-4.3); LYMPH % 3.5 % (20.0-40.0); MEAN CELL VOLUME 87.8 fL (81.0-99.0); MEAN CORPUSCULAR HEMOGLOBIN 29.4 pg (27.0-31.0); MEAN CORPUSCULAR HGB CONC 33.5 g/dL (33.0-37.0); MEAN PLATELET VOLUME 8.5 fL (7.2-11.7); MONO # 0.7 K/uL (0.0-0.8); MONO % 3.1 % (0.0-10.0); NEUT # 21.1 K/uL (1.8-7.0); NEUT % 93.1 % (50.0-75.0); PLATELET COUNT 319 K/uL (130-400); RBC 3.92 Mil/uL (3.80-5.20); RED CELL DISTRIBUTION WIDTH 16.4 % (11.5-14.5); WHITE BLOOD COUNT 22.6 K/uL (4.8-10.8)
[2018-02-17] MEDS ORDERED: Morphine 4 MG/ML VIAL ONE (10:32)
--- NOTE | 2018-02-17 10:34 | C.PDOC ---
History Of Present Illness 73yo female with history of hypertension, diabetes,presents to ED for evaluation of vomiting, soft stools since yesterday. She reports she had a recent stent placement in her left lower extremity due to PVD by Dr. Rankin. Patient denies any abdominal pain, fever, chills, weakness,and offers no other medical complaints. PMD: Dr. Ledesma Time Seen by Provider: 02/17/18 10:03 Chief Complaint (Nursing): Abdominal Pain History Per: Patient History/Exam Limitations: no limitations Onset/Duration Of Symptoms: Days (1) Current Symptoms Are (Timing): Still Present Location Of Pain/Discomfort: Diffuse Associated Symptoms: Vomiting, Diarrhea (loose stools) Abnormal Vaginal Bleeding: No Past Medical History Reviewed: Historical Data, Nursing Documentation, Vital Signs Vital Signs: Last Vital Signs Temp 98.2 F 02/17/18 09:57 Pulse 94 H 02/17/18 14:54 Resp 18 02/17/18 14:54 BP 165/53 H 02/17/18 14:54 Pulse Ox 99 02/17/18 14:54 - Medical History PMH: Anxiety, Arthritis (HANDS), Asthma, Bronchitis, COPD, Diabetes, Fractures ( RT.FOOT/CASTED NO OR), HTN, Hypercholesterolemia, Osteoporosis, Pneumonia Denies: HIV, Chronic Kidney Disease Surgical History: Endoscopy Other Surgeries: stent placed in lower extremity - [facility] Procedures ASSISTANCE WITH RESPIRATORY VENTILATION, 24-96 HRS (02/17/17) BYPASS L FEM ART TO R FEMOR A WITH SYNTH SUB, OPEN APPROACH (02/09/17) CLOSED ENDOSCOPIC BIOPSY OF LARGE INTESTINE (07/31/15) DILATION OF R FEM ART WITH INTRALUM DEV, PERC APPROACH (11/06/17) ENDOSCOPIC CONTROL OF GASTRIC OR DUODENAL BLEEDING (07/24/15) ESOPHAGOGASTRODUODENOSCOPY [EGD] W/CLOSED BIOPSY (04/22/13) EXERCISE TREATMENT OF MUSCULOSK WHOLE USING ASSIST EQUIPMENT (11/11/17) EXERCISE TRMT MUSCULOSK LOW BACK/LE W ASSIST EQUIP (03/09/17) GAIT TRAINING/AMBULAT TREATMENT USING ASSIST EQUIPMENT (11/11/17) GAIT TRAINING/FUNCTIONAL AMBULATION TREATMENT (02/17/17) HOME MANAGEMENT TREATMENT (02/17/17) HOME MANAGEMENT TREATMENT USING ASSIST EQUIPMENT (11/11/17) THERAPEUTIC EXERCISE TREATMENT OF MUSCULOSK LOW BACK/LE (02/17/17) TRANSFUSE NONAUT RED BLOOD CELLS IN PERIPH VEIN, PERC (02/09/17) Family History: States: Unknown Family Hx - Social History Hx Tobacco Use: Yes (Former.) Hx Alcohol Use: No Hx Substance Use: No - Immunization History Hx Tetanus Toxoid Vaccination: No Hx Influenza Vaccination: Yes Hx Pneumococcal Vaccination: Yes Review Of Systems Except As Marked, All Systems Reviewed And Found Negative. Constitutional: Negative for: Fever, Chills, Weakness Gastrointestinal: Positive for: Nausea, Vomiting, Diarrhea (loose stools). Negative for: Abdominal Pain Physical Exam - Physical Exam Appears: Non-toxic, No Acute Distress Skin: Normal Color, Warm, Dry Head: Atraumatic, Normacephalic Eye(s): bilateral: Normal Inspection Oral Mucosa: Moist Neck: Normal ROM, Supple Chest: Symmetrical Cardiovascular: Rhythm Regular Respiratory: Normal Breath Sounds, No Wheezing Gastrointestinal/Abdominal: Bowel Sounds (normal), Soft, Tenderness (diffuse, mild) Back: Normal Inspection Extremity: Normal ROM Neurological/Psych: Oriented x3 Gait: Unable To Assess ED Course And Treatment - Laboratory Results Result Diagrams: 02/17/18 10:24 02/17/18 11:09 Lab Interpretation: Abnormal ECG: Interpreted By Me ECG Rhythm: Sinus Tachycardia ECG Interpretation: No Acute Changes Rate From EC O2 Sat by Pulse Oximetry: 96 (RA) Pulse Ox Interpretation: Normal - CT Scan/US No standard instances Other Rad Studies (CT/US): Read By Radiologist, Radiology Report Reviewed CT/US Interpretation: FINDINGS: LOWER THORAX: Cardiomegaly. Coronary arterial and valvular calcifications. No focal consolidation or pleural effusion. LIVER: Unremarkable. No gross lesion or ductal dilatation. GALLBLADDER AND BILE DUCTS: Unremarkable. PANCREAS: Unremarkable. No gross lesion or ductal dilatation. SPLEEN: Unremarkable. ADRENALS: Left adrenal nodular hyperplasia. KIDNEYS AND URETERS: No hydronephrosis. No solid mass. VASCULATURE: Heavy calcific atherosclerosis. Left external iliac artery stent. Fem-fem bypass graft. No aortic aneurysm. BOWEL: Diffuse thickening of the cecum. Colonic diverticula. Prior low anterior resection. No obstruction. No gross mural thickening. APPENDIX: Unremarkable. Normal appendix. PERITONEUM: Unremarkable. No free fluid. No free air. LYMPH NODES: Unremarkable. No enlarged lymph nodes. BLADDER: Unremarkable. REPRODUCTIVE: Not visualized. BONES: No acute fracture. Grade 1 anterolisthesis of L4 on L5. OTHER FINDINGS : None. IMPRESSION: Cecitis versus cecal diverticulitis. No evidence of free air or adjacent fluid collection. Progress Note: Treated with IVF NSS, morphine and zofran with mild relief. Treated with additional zofran. Case discussed with Dr Ledesma and agrees to admit. Treated with cipro and flagyl IV. Treated with norvasc 5 mg PO Reassessment Condition: Improved - Physician Consult Information Physician Contacted: Kd Ledesma Outcome Of Conversation: admit Medical Decision Making Medical Decision Making: Plan: -- Labs -- CT Abdomen/Pelvis w/o contrast -- Morphine 2mg IV -- Zofran 4mg IV -- IV Fluids Disposition Discussed With Dr.: Kd Ledesma Doctor Will See Patient In The: Hospital - Disposition Disposition: HOSPITALIZED Disposition Time: 14:00 Condition: STABLE Instructions: Diverticulitis Forms: Spott[employer] (Belizean) - POA Present On Arrival: None - Clinical Impression Clinical Impression: Diverticulitis, Abdominal pain, Vomiting - PA / SEAM STEAMER / Resident Statement MD/DO has reviewed & agrees with the documentation as recorded. - Scribe Statement The provider has reviewed the documentation as recorded by the Scribe (Yue Naqvi) Provider Attestation: All medical record entries made by the Scribe were at my direction and personally dictated by me. I have reviewed the chart and agree that the record accurately reflects my personal performance of the history, physical exam, medical decision making, and the department course for this patient. I have also personally directed, reviewed, and agree with the discharge instructions and disposition. Decision To Admit - Pt Status Changed To: Hospital Disposition Of: Inpatient - Admit Certification Admit to Inpatient:: After my assessment, the patient will require hospitalization for at least two midnights. This is because of the severity of symptoms shown, intensity of services needed, and/or the medical risk in this patient being treated as an outpatient. - InPatient: Physician Admission Certification:: Diverticulitis - . Bed Request Type: Regular Admitting Physician: Kd Ledesma Patient Diagnosis: Diverticulitis, Abdominal pain, Vomiting
--- NOTE | 2018-02-17 10:40 | RAD ---
PROCEDURE: CHEST RADIOGRAPH, 1 VIEW HISTORY: SOB COMPARISON: 01/13/2018 FINDINGS: LUNGS: Clear. PLEURA: No pneumothorax or pleural fluid seen. CARDIOVASCULAR: Normal. OSSEOUS STRUCTURES: No significant abnormalities. VISUALIZED UPPER ABDOMEN: Normal. OTHER FINDINGS: None. IMPRESSION: No active disease.
[2018-02-17 11:04] LABS: BANDS 4 % (0-2); BASOPHIL 1 % (0-2); LYMPHOCYTE 5 % (20-40); MONOCYTE 2 % (0-10); NEUTROPHIL 88 % (50-75); PLATELET ESTIMATE NORMAL (NORMAL); TOTAL CELLS COUNTED 100
[2018-02-17 11:05] LABS: ANISOCYTOSIS SLIGHT
[2018-02-17 11:23] LABS: ALBUMIN 4.1 g/dL (3.5-5.0); ALT/SGPT 10 U/L (9-52); AST/SGOT 27 U/L (14-36); BLOOD UREA NITROGEN 14 mg/dL (7-17); CALCIUM 10.3 mg/dl (8.6-10.4); GFR AFRICAN-AMERICAN > 60; GFR NON-AFRICAN AMERICAN > 60; LIPASE 73 U/L (23-300)
[2018-02-17 11:36] LABS: CK-MB 1.21 ng/mL (0.0-3.38)
--- NOTE | 2018-02-17 12:36 | CT ---
PROCEDURE: CT Abdomen and Pelvis without intravenous contrast HISTORY: Pain COMPARISON: None. TECHNIQUE: Contiguous images were obtained from the domes of the diaphragms to the upper thighs without the administration of intravenous contrast. Oral contrast was not administered. Radiation dose: Total exam DLP = 261.5 mGy-cm. This CT exam was performed using one or more of the following dose reduction techniques: Automated exposure control, adjustment of the mA and/or kV according to patient size, and/or use of iterative reconstruction technique. FINDINGS: LOWER THORAX: Cardiomegaly. Coronary arterial and valvular calcifications. No focal consolidation or pleural effusion. LIVER: Unremarkable. No gross lesion or ductal dilatation. GALLBLADDER AND BILE DUCTS: Unremarkable. PANCREAS: Unremarkable. No gross lesion or ductal dilatation. SPLEEN: Unremarkable. ADRENALS: Left adrenal nodular hyperplasia. KIDNEYS AND URETERS: No hydronephrosis. No solid mass. VASCULATURE: Heavy calcific atherosclerosis. Left external iliac artery stent. Fem-fem bypass graft. No aortic aneurysm. BOWEL: Diffuse thickening of the cecum. Colonic diverticula. Prior low anterior resection. No obstruction. No gross mural thickening. APPENDIX: Unremarkable. Normal appendix. PERITONEUM: Unremarkable. No free fluid. No free air. LYMPH NODES: Unremarkable. No enlarged lymph nodes. BLADDER: Unremarkable. REPRODUCTIVE: Not visualized. BONES: No acute fracture. Grade 1 anterolisthesis of L4 on L5. OTHER FINDINGS: None. IMPRESSION: Cecitis versus cecal diverticulitis. No evidence of free air or adjacent fluid collection. Additional stable findings findings as above. Findings conveyed to Dr. Martinez by Dr. Singer at 12:33 p.m. on 02/17/2018.
[2018-02-17] MEDS ORDERED: Ciprofloxacin 400mg/200ml D5W 400 MG/200 ML BAG IVPB STA (12:40)
[2018-02-17] MEDS ORDERED: metroNIDAZOLE IV 500 mg/100 ml 500 MG/100 ML BAG IV SCH (12:45)
[2018-02-17 13:22] LABS: SQUAMOUS EPITHIAL 1 /hpf (0-5); URINE BILIRUBIN NEGATIVE (NEGATIVE); URINE BLOOD 1+ (NEGATIVE); URINE CLARITY Clear (Clear); URINE COLOR Yellow (YELLOW); URINE GLUCOSE (UA) 2+ mg/dL (Normal); URINE LEUKOCYTE ESTERASE NEG Leu/uL (Negative); URINE PROTEIN 3+ mg/dL (NEGATIVE); URINE UROBILINOGEN NORMAL mg/dL (0.2-1.0)
[2018-02-17] MEDS ORDERED: Ciprofloxacin 400mg/200ml D5W 400 MG/200 ML BAG IVPB ONE (13:45)
[2018-02-17] MEDS ORDERED: metroNIDAZOLE IV 500 mg/100 ml 500 MG/100 ML BAG ONE (14:52)
[2018-02-17] MEDS ORDERED: metroNIDAZOLE IV 500 mg/100 ml 500 MG/100 ML BAG IV ONE (15:00)
[2018-02-17] MEDS ORDERED: Potassium Chloride 20 MEQ in Dextrose 5%/0.9% NS 1,000 ML IV ONE (17:00)
[2018-02-17] MEDS ORDERED: Potassium Ch 20mEq in D5W 1,000 ML IV SCH (17:00)
[2018-02-17] MEDS: Potassium Ch 20mEq in D5-1/2NS 1,000 ML IV SCH (17:33)
[2018-02-17] MEDS: (Novolog) Insulin Aspart, Recombinant 100 u/ml 10 ml vial SC SCH ×2 (17:34→21:30)
[2018-02-17] MEDS: Morphine 4 MG/ML VIAL IVP PRN (17:46)
[2018-02-17] MEDS ORDERED: metroNIDAZOLE IV 500 mg/100 ml 500 MG/100 ML BAG IVPB SCH (18:00)
[2018-02-17] MEDS: Cilostazol 50 mg Tab UD PO SCH (21:29)
[2018-02-17] MEDS: Ciprofloxacin 400mg/200ml D5W 400 MG/200 ML BAG IVPB SCH (21:30)
[2018-02-17] MEDS: metroNIDAZOLE IV 500 mg/100 ml 500 MG/100 ML BAG IVPB SCH (23:17)
[2018-02-18] MEDS: Morphine 4 MG/ML VIAL IVP PRN ×4 (00:44→22:35)
[2018-02-18] MEDS: Potassium Ch 20mEq in D5-1/2NS 1,000 ML IV SCH ×4 (03:03→23:30)
[2018-02-18] MEDS: metroNIDAZOLE IV 500 mg/100 ml 500 MG/100 ML BAG IVPB SCH ×3 (06:04→22:40)
[2018-02-18 06:53] LABS: BASO % 0.2 % (0.0-2.0); EOS % 0.1 % (0.0-4.0); HEMOGLOBIN 10.6 g/dL (11.0-16.0); LYMPH # 1.3 K/uL (1.0-4.3); LYMPH % 6.4 % (20.0-40.0); MEAN CORPUSCULAR HEMOGLOBIN 29.5 pg (27.0-31.0); MEAN CORPUSCULAR HGB CONC 33.5 g/dL (33.0-37.0); MEAN PLATELET VOLUME 8.1 fL (7.2-11.7); MONO # 1.3 K/uL (0.0-0.8); MONO % 6.4 % (0.0-10.0); NEUT # 17.9 K/uL (1.8-7.0); NEUT % 86.9 % (50.0-75.0); PLATELET COUNT 266 K/uL (130-400); WHITE BLOOD COUNT 20.7 K/uL (4.8-10.8)
[2018-02-18 07:28] LABS: ALBUMIN 3.6 g/dL (3.5-5.0); ALT/SGPT 16 U/L (9-52); AST/SGOT 31 U/L (14-36); BLOOD UREA NITROGEN 8 mg/dL (7-17); GFR AFRICAN-AMERICAN > 60; GFR NON-AFRICAN AMERICAN > 60
[2018-02-18 08:11] VITALS: RESP 20
[2018-02-18] MEDS: (Novolog) Insulin Aspart, Recombinant 100 u/ml 10 ml vial SC SCH ×4 (08:30→21:50)
[2018-02-18 08:35] LABS: LYMPHOCYTE 5 % (20-40); MONOCYTE 6 % (0-10); PLATELET ESTIMATE NORMAL (NORMAL); TOTAL CELLS COUNTED 100
[2018-02-18 08:36] LABS: ANISOCYTOSIS SLIGHT; HYPOCHROMIC SLIGHT; LARGE PLATELETS PRESENT; NEUTROPHIL 89 % (50-75); OVALOCYTES SLIGHT; POIKILOCYTOSIS SLIGHT
--- NOTE | 2018-02-18 09:07 | HP ---
HISTORY OF PRESENT ILLNESS: The patient is a 73-year-old female with history of multiple medical problems presented to emergency room with lower abdominal pain for 2 days duration that has been progressive. The patient was sent to take home remedies and pain continued. She presented to emergency room for evaluation where she was found to have cecitis/diverticulitis. The patient was started on IV antibiotics and admitted for further management. The patient also was found to be nauseous, and she was given antiemetics. Other review of system is negative. ALLERGIES: POSITIVE FOR PENICILLIN AND SULFA AND TOMATO. PAST MEDICAL HISTORY: Peripheral vascular disease, hypertension, type 2 diabetes mellitus. SOCIAL HISTORY Smoker. No EtOH or substance abuse. FAMILY HISTORY Noncontributory. PHYSICAL EXAMINATION: GENERAL: The patient is in bed, not in any cardiopulmonary distress. VITAL SIGNS: Blood pressure 160/50, temperature 98.9, respiratory rate 18, and pulse 90. HEENT: Pupils equal and reactive to light. Normal-appearing mucosa of the conjunctivae, oropharynx, and nasal membrane mucosa. NECK: Supple. No JVD. No carotid bruit. No lymph node. No thyromegaly. CHEST AND LUNGS: Bilateral symmetrical expansion. Good air exchange. No rales, no rhonchi. CARDIOVASCULAR SYSTEM: PMI not localized. S1, S2. No additional sounds. ABDOMEN: Decreased bowel sounds. There is tenderness in the lower abdominal but no rebound tenderness or rigidity. EXTREMITIES: No cyanosis, no clubbing, no edema. ATTENDING PHYSICIAN: Alert, awake, oriented x3. No neurological deficit could be appreciated. ASSESSMENT: 1. Diverticulitis/cecitis. 2. Type 2 diabetes mellitus. 3. Hypertension. 4. Chronic obstructive pulmonary disease. 5. Smoker. PLAN: IV fluids, antiemetics. Continue antibiotics, both Cipro and Flagyl. Kd Ledesma MD
[2018-02-18] MEDS: Enoxaparin 30 mg Syringe SC SCH ×2 (10:13→21:22)
[2018-02-18] MEDS: Ciprofloxacin 400mg/200ml D5W 400 MG/200 ML BAG IVPB SCH ×2 (10:14→21:20)
[2018-02-18] MEDS: Cilostazol 50 mg Tab UD PO SCH ×2 (11:00→17:25)
--- NOTE | 2018-02-18 12:12 | CP.PCM.CON ---
<Gabino Sheppard - Last Filed: 02/18/18 12:20> History of Present Illness - History of Present Illness History of Present Illness: PGY5 GI Fellow Consult Note Patient is a 73yo female with PMHx significant for PVD on plavix s/p fem-fem bypass (01/2017) and recent artherectomy of right popliteal and in-stent stenosis (01/28/18), DM, HTN, COPD, diverticulitis s/p partial colon resection who presents to the hospital with abdominal pain. She states that two days ago she developed sudden onset cramping lower abdominal pain. Pain was unrelated to meals or defecation and progressively worsened. She developed loose stool along with nausea and vomiting. She denies fever/chills and did not take any medications to treat her symptoms. No new medications recently, no travel, sick contacts or antibiotic use. Admits to recent evaluation of right leg with angiogram and required angioplasty for right leg popliteal lesion as well as removal of in stent stenosis of the patient's prior bypass. 12 system ROS performed and negative except where stated PMHx: See HPI PSHx: Fem-fem, partial colectomy, hysterectomy FHx: Discussed with patient and she denies any significant family history Social: Current some day smoker - smoking for ~58 years; occasional EtOH intake , no illicit drug use Endo: EGD 2012 - erosive gastritis, hiatal hernia EGD 2014 - hiatal hernia, gastritis, ? esophageal stricture Colonoscopy 2015 - Internal hemorrhoids, diverticulosis, evidence of colectomy with anastamosis *All biopsies unremarkable *Esophagram in 2017 without esophageal abnormalities Past Patient History - Infectious Disease Hx of Infectious Diseases: None - Past Medical History & Family History Past Medical History?: Yes - Past Social History Smoking Status: Light Smoker < 10 Cigarettes Daily - CARDIAC Hx Hypercholesterolemia: Yes Hx Hypertension: Yes - PULMONARY Hx Asthma: Yes Hx Bronchitis: Yes Hx Chronic Obstructive Pulmonary Disease (COPD): Yes Hx Pneumonia: Yes - NEUROLOGICAL Hx Neurological Disorder: No - HEENT Hx HEENT Problems: Yes Hx Cataracts: Yes - RENAL Hx Chronic Kidney Disease: No - ENDOCRINE/METABOLIC Hx Endocrine Disorders: Yes Hx Diabetes Mellitus Type 2: Yes - HEMATOLOGICAL/ONCOLOGICAL Hx Human Immunodeficiency Virus (HIV): No - INTEGUMENTARY Hx Dermatological Problems: No - MUSCULOSKELETAL/RHEUMATOLOGICAL Hx Arthritis: Yes (HANDS) Hx Falls: No Hx Fractures: Yes (RT.FOOT/CASTED NO OR) Hx Osteoporosis: Yes - GASTROINTESTINAL Hx Gastrointestinal Disorders: Yes Hx Bowel Surgery: Yes (COLON RESECTION FOR OBSTRUCTION?) Hx Constipation: Yes Hx Gastroesophageal Reflux: Yes Other/Comment: HX.OBSTRUCTION HAD BOWEL RESECTION - GENITOURINARY/GYNECOLOGICAL Hx Genitourinary Disorders: No - PSYCHIATRIC Hx Anxiety: Yes Hx Substance Use: No - SURGICAL HISTORY Hx Surgeries: Yes Hx Angiogram: Yes (Stenting bilateral legs) Hx Breast Biopsy: Yes (RT. 11 yrs old) Hx Herniorrhaphy: Yes (UMBILICAL) Hx Hysterectomy: Yes (RYANN) Hx Orthopedic Surgery: Yes (OMAR. BUNIONECTOMY) Hx Tubal Ligation: Yes - ANESTHESIA Hx Anesthesia: Yes Hx Anesthesia Reactions: No Hx Malignant Hyperthermia: No Meds Allergies/Adverse Reactions: Allergies Allergy/AdvReac Type Severity Reaction Status Date / Time Penicillins Allergy Intermediate SWELLING Verified 02/17/18 10:09 Sulfa (Sulfonamide Allergy Intermediate RASH Verified 02/17/18 10:09 Antibiotics) tomato AdvReac Intermediate GI UPSET Verified 02/17/18 10:09 - Medications Medications: Current Medications Amlodipine Besylate (Norvasc) 5 mg PO DAILY [facility] Last Admin: 02/18/18 10:05 Dose: 5 mg Cilostazol (Pletal) 50 mg PO BID [facility] Last Admin: 02/18/18 11:00 Dose: 50 mg Clopidogrel Bisulfate (Plavix) 75 mg PO DAILY [facility] Last Admin: 02/18/18 10:05 Dose: 75 mg Enoxaparin Sodium (Lovenox) 30 mg SC Q12 [facility] Last Admin: 02/18/18 10:13 Dose: 30 mg Metronidazole (Flagyl) 500 mg in 100 mls @ 100 mls/hr IVPB Q8H [facility] PRN Reason: Protocol Last Admin: 02/18/18 06:04 Dose: 100 mls/hr Ciprofloxacin (Cipro 400mg/200ml Dsw) 400 mg in 200 mls @ 133 mls/hr IVPB Q12H [facility] PRN Reason: Protocol Last Admin: 02/18/18 10:14 Dose: 133 mls/hr Potassium Chloride/Dextrose/Sod Cl (Potassium Chl 20 Meq In D5-1/2ns) 1,000 mls @ 100 mls/hr IV .Q10H [facility] Last Admin: 02/18/18 06:02 Dose: 100 mls/hr Potassium Chloride (Potassium Chloride 20 Meq/100 Ml) 20 meq in 100 mls @ 50 mls/hr IVPB Q2 [facility] Stop: 02/18/18 13:59 Last Admin: 02/18/18 10:14 Dose: 50 mls/hr Insulin Aspart (Novolog) 0 unit SC ACHS [facility] PRN Reason: Protocol Last Admin: 02/18/18 08:30 Dose: 2 unit Losartan Potassium (Cozaar) 25 mg PO DAILY [facility] Last Admin: 02/18/18 10:05 Dose: 25 mg Morphine Sulfate (Morphine) 2 mg IVP Q4 PRN PRN Reason: Pain, severe (8-10) Last Admin: 02/18/18 10:06 Dose: 2 mg Ondansetron HCl (Zofran Inj) 4 mg IVP Q8 PRN PRN Reason: Nausea/Vomiting Last Admin: 02/18/18 09:00 Dose: 4 mg Pantoprazole Sodium (Protonix Inj) 40 mg IVP DAILY [facility] Last Admin: 02/18/18 10:05 Dose: 40 mg Physical Exam - Constitutional Appears: Non-toxic, No Acute Distress - Eye Exam Eye Exam: EOMI, PERRL - ENT Exam ENT Exam: Mucous Membranes Moist - Respiratory Exam Respiratory Exam: Clear to Auscultation Bilateral. absent: Rales, Rhonchi, Wheezes - Cardiovascular Exam Cardiovascular Exam: RRR, +S1, +S2, Systolic Murmur - GI/Abdominal Exam GI & Abdominal Exam: Normal Bowel Sounds, Soft, Tenderness (RLQ, LLQ, suprapubic ). absent: Distended, Firm, Guarding, Organomegaly, Rigid - Extremities Exam Extremities exam: Positive for: normal inspection. Negative for: pedal edema - Neurological Exam Neurological exam: Alert, Oriented x3 - Psychiatric Exam Psychiatric exam: Normal Affect, Normal Mood - Skin Skin Exam: Dry, Warm Results - Vital Signs Recent Vital Signs: Last Vital Signs Temp 98.5 F 02/18/18 08:10 Pulse 92 H 02/18/18 08:10 Resp 20 02/18/18 08:10 BP 159/52 H 02/18/18 08:10 Pulse Ox 97 02/18/18 08:10 - Labs Result Diagrams: 02/18/18 06:41 02/18/18 06:41 Labs: Laboratory Results - last 24 hr 02/17/18 02/17/18 02/17/18 13:07 16:14 21:10 WBC RBC Hgb Hct MCV MCH MCHC RDW Plt Count MPV Neut % (Auto) Lymph % (Auto) [place] % (Auto) Eos % (Auto) Baso % (Auto) Neut # (Auto) Lymph # (Auto) [place] # (Auto) Eos # (Auto) Baso # (Auto) Neutrophils % (Manual) Lymphocytes % (Manual) Monocytes % (Manual) Platelet Estimate Large Platelets Hypochromasia (manual) Poikilocytosis (manual Anisocytosis (manual) Ovalocytes Sodium Potassium Chloride Carbon Dioxide Anion Gap BUN Creatinine Est GFR ( Amer) Est GFR (Non-Af Amer) POC Glucose (mg/dL) 182 H 183 H Random Glucose Calcium Total Bilirubin AST ALT Alkaline Phosphatase Total Protein Albumin Globulin Albumin/Globulin Ratio Urine Color Yellow Urine Clarity Clear Urine pH 7.0 Ur Specific [place] 1.013 Urine Protein 3+ H Urine Glucose (UA) 2+ H Urine Ketones Trace Urine Blood 1+ H Urine Nitrate Negative Urine Bilirubin Negative Urine Urobilinogen Normal Ur Leukocyte Esterase Neg Urine WBC (Auto) 1 Urine RBC (Auto) 7 H Ur Squamous Epith Cells 1 Hyaline Casts 3-5 H 02/18/18 02/18/18 02/18/18 06:41 06:41 07:11 WBC 20.7 H RBC 3.60 L Hgb 10.6 L Hct 31.7 L MCV 88.0 MCH 29.5 MCHC 33.5 RDW 16.0 H Plt Count 266 MPV 8.1 Neut % (Auto) 86.9 H Lymph % (Auto) 6.4 L [place] % (Auto) 6.4 Eos % (Auto) 0.1 Baso % (Auto) 0.2 Neut # (Auto) 17.9 H Lymph # (Auto) 1.3 [place] # (Auto) 1.3 H Eos # (Auto) 0.0 Baso # (Auto) 0.0 Neutrophils % (Manual) 89 H Lymphocytes % (Manual) 5 L Monocytes % (Manual) 6 Platelet Estimate Normal Large Platelets Present Hypochromasia (manual) Slight Poikilocytosis (manual Slight Anisocytosis (manual) Slight Ovalocytes Slight Sodium 136 Potassium 3.2 L Chloride 96 L Carbon Dioxide 28 Anion Gap 15 BUN 8 Creatinine 0.6 L Est GFR ( Amer) > 60 Est GFR (Non-Af Amer) > 60 POC Glucose (mg/dL) 203 H Random Glucose 219 H Calcium 9.0 Total Bilirubin 0.5 AST 31 ALT 16 Alkaline Phosphatase 86 Total Protein 7.3 Albumin 3.6 Globulin 3.7 Albumin/Globulin Ratio 1.0 Urine Color Urine Clarity Urine pH Ur Specific [place] Urine Protein Urine Glucose (UA) Urine Ketones Urine Blood Urine Nitrate Urine Bilirubin Urine Urobilinogen Ur Leukocyte Esterase Urine WBC (Auto) Urine RBC (Auto) Ur Squamous Epith Cells Hyaline Casts 02/18/18 11:03 WBC RBC Hgb Hct MCV MCH MCHC RDW Plt Count MPV Neut % (Auto) Lymph % (Auto) [place] % (Auto) Eos % (Auto) Baso % (Auto) Neut # (Auto) Lymph # (Auto) [place] # (Auto) Eos # (Auto) Baso # (Auto) Neutrophils % (Manual) Lymphocytes % (Manual) Monocytes % (Manual) Platelet Estimate Large Platelets Hypochromasia (manual) Poikilocytosis (manual Anisocytosis (manual) Ovalocytes Sodium Potassium Chloride Carbon Dioxide Anion Gap BUN Creatinine Est GFR ( Amer) Est GFR (Non-Af Amer) POC Glucose (mg/dL) 208 H Random Glucose Calcium Total Bilirubin AST ALT Alkaline Phosphatase Total Protein Albumin Globulin Albumin/Globulin Ratio Urine Color Urine Clarity Urine pH Ur Specific [place] Urine Protein Urine Glucose (UA) Urine Ketones Urine Blood Urine Nitrate Urine Bilirubin Urine Urobilinogen Ur Leukocyte Esterase Urine WBC (Auto) Urine RBC (Auto) Ur Squamous Epith Cells Hyaline Casts Assessment & Plan - Assessment and Plan (Free Text) Assessment: Patient is a 73yo female with PMHx significant for PVD on plavix s/p fem-fem bypass (01/2017) and recent artherectomy of right popliteal and in-stent stenosis (01/28/18), DM, HTN, COPD, diverticulitis s/p partial colon resection who presents to the hospital with abdominal pain. -Acute colitis -H/O diverticulosis/itis with prior surgical resection -PVD -COPD -DM -HTN Plan: -CT scan reviewed showing colitis primarily in cecum -Agree with empiric antibiotic coverage - Cipro/Flagyl -Consider checking stool culture, C diff given loose stool and leukocytosis with recent instrumentation -Liquid diet as tolerated -Last colonoscopy in 2014 showed diverticulosis and internal hemorrhoids - would benefit from repeat evaluation 6-8wks after resolution of acute illness - Date & Time Date: 02/18/18 Time: 12:00 <Titus Betancur - Last Filed: 02/18/18 12:59> Meds - Medications Medications: Current Medications Amlodipine Besylate (Norvasc) 5 mg PO DAILY [facility] Last Admin: 02/18/18 10:05 Dose: 5 mg Cilostazol (Pletal) 50 mg PO BID [facility] Last Admin: 02/18/18 11:00 Dose: 50 mg Clopidogrel Bisulfate (Plavix) 75 mg PO DAILY [facility] Last Admin: 02/18/18 10:05 Dose: 75 mg Enoxaparin Sodium (Lovenox) 30 mg SC Q12 [facility] Last Admin: 02/18/18 10:13 Dose: 30 mg Metronidazole (Flagyl) 500 mg in 100 mls @ 100 mls/hr IVPB Q8H [facility] PRN Reason: Protocol Last Admin: 02/18/18 06:04 Dose: 100 mls/hr Ciprofloxacin (Cipro 400mg/200ml Dsw) 400 mg in 200 mls @ 133 mls/hr IVPB Q12H [facility] PRN Reason: Protocol Last Admin: 02/18/18 10:14 Dose: 133 mls/hr Potassium Chloride/Dextrose/Sod Cl (Potassium Chl 20 Meq In D5-1/2ns) 1,000 mls @ 100 mls/hr IV .Q10H [facility] Last Admin: 02/18/18 12:29 Dose: Not Given Potassium Chloride (Potassium Chloride 20 Meq/100 Ml) 20 meq in 100 mls @ 50 mls/hr IVPB Q2 [facility] Stop: 02/18/18 13:59 Last Admin: 02/18/18 12:28 Dose: 50 mls/hr Insulin Aspart (Novolog) 0 unit SC ACHS [facility] PRN Reason: Protocol Last Admin: 02/18/18 12:24 Dose: 2 unit Losartan Potassium (Cozaar) 25 mg PO DAILY [facility] Last Admin: 02/18/18 10:05 Dose: 25 mg Morphine Sulfate (Morphine) 2 mg IVP Q4 PRN PRN Reason: Pain, severe (8-10) Last Admin: 02/18/18 10:06 Dose: 2 mg Ondansetron HCl (Zofran Inj) 4 mg IVP Q8 PRN PRN Reason: Nausea/Vomiting Last Admin: 02/18/18 09:00 Dose: 4 mg Pantoprazole Sodium (Protonix Inj) 40 mg IVP DAILY [facility] Last Admin: 02/18/18 10:05 Dose: 40 mg Results - Vital Signs Recent Vital Signs: Last Vital Signs Temp 98.5 F 02/18/18 08:10 Pulse 92 H 02/18/18 08:10 Resp 20 02/18/18 08:10 BP 159/52 H 02/18/18 08:10 Pulse Ox 97 02/18/18 08:10 - Labs Result Diagrams: 02/18/18 06:41 02/18/18 06:41 Labs: Laboratory Results - last 24 hr 02/17/18 02/17/18 02/17/18 13:07 16:14 21:10 WBC RBC Hgb Hct MCV MCH MCHC RDW Plt Count MPV Neut % (Auto) Lymph % (Auto) [place] % (Auto) Eos % (Auto) Baso % (Auto) Neut # (Auto) Lymph # (Auto) [place] # (Auto) Eos # (Auto) Baso # (Auto) Neutrophils % (Manual) Lymphocytes % (Manual) Monocytes % (Manual) Platelet Estimate Large Platelets Hypochromasia (manual) Poikilocytosis (manual Anisocytosis (manual) Ovalocytes Sodium Potassium Chloride Carbon Dioxide Anion Gap BUN Creatinine Est GFR ( Amer) Est GFR (Non-Af Amer) POC Glucose (mg/dL) 182 H 183 H Random Glucose Calcium Total Bilirubin AST ALT Alkaline Phosphatase Total Protein Albumin Globulin Albumin/Globulin Ratio Urine Color Yellow Urine Clarity Clear Urine pH 7.0 Ur Specific [place] 1.013 Urine Protein 3+ H Urine Glucose (UA) 2+ H Urine Ketones Trace Urine Blood 1+ H Urine Nitrate Negative Urine Bilirubin Negative Urine Urobilinogen Normal Ur Leukocyte Esterase Neg Urine WBC (Auto) 1 Urine RBC (Auto) 7 H Ur Squamous Epith Cells 1 Hyaline Casts 3-5 H 02/18/18 02/18/18 02/18/18 06:41 06:41 07:11 WBC 20.7 H RBC 3.60 L Hgb 10.6 L Hct 31.7 L MCV 88.0 MCH 29.5 MCHC 33.5 RDW 16.0 H Plt Count 266 MPV 8.1 Neut % (Auto) 86.9 H Lymph % (Auto) 6.4 L [place] % (Auto) 6.4 Eos % (Auto) 0.1 Baso % (Auto) 0.2 Neut # (Auto) 17.9 H Lymph # (Auto) 1.3 [place] # (Auto) 1.3 H Eos # (Auto) 0.0 Baso # (Auto) 0.0 Neutrophils % (Manual) 89 H Lymphocytes % (Manual) 5 L Monocytes % (Manual) 6 Platelet Estimate Normal Large Platelets Present Hypochromasia (manual) Slight Poikilocytosis (manual Slight Anisocytosis (manual) Slight Ovalocytes Slight Sodium 136 Potassium 3.2 L Chloride 96 L Carbon Dioxide 28 Anion Gap 15 BUN 8 Creatinine 0.6 L Est GFR ( Amer) > 60 Est GFR (Non-Af Amer) > 60 POC Glucose (mg/dL) 203 H Random Glucose 219 H Calcium 9.0 Total Bilirubin 0.5 AST 31 ALT 16 Alkaline Phosphatase 86 Total Protein 7.3 Albumin 3.6 Globulin 3.7 Albumin/Globulin Ratio 1.0 Urine Color Urine Clarity Urine pH Ur Specific [place] Urine Protein Urine Glucose (UA) Urine Ketones Urine Blood Urine Nitrate Urine Bilirubin Urine Urobilinogen Ur Leukocyte Esterase Urine WBC (Auto) Urine RBC (Auto) Ur Squamous Epith Cells Hyaline Casts 02/18/18 11:03 WBC RBC Hgb Hct MCV MCH MCHC RDW Plt Count MPV Neut % (Auto) Lymph % (Auto) [place] % (Auto) Eos % (Auto) Baso % (Auto) Neut # (Auto) Lymph # (Auto) [place] # (Auto) Eos # (Auto) Baso # (Auto) Neutrophils % (Manual) Lymphocytes % (Manual) Monocytes % (Manual) Platelet Estimate Large Platelets Hypochromasia (manual) Poikilocytosis (manual Anisocytosis (manual) Ovalocytes Sodium Potassium Chloride Carbon Dioxide Anion Gap BUN Creatinine Est GFR ( Amer) Est GFR (Non-Af Amer) POC Glucose (mg/dL) 208 H Random Glucose Calcium Total Bilirubin AST ALT Alkaline Phosphatase Total Protein Albumin Globulin Albumin/Globulin Ratio Urine Color Urine Clarity Urine pH Ur Specific [place] Urine Protein Urine Glucose (UA) Urine Ketones Urine Blood Urine Nitrate Urine Bilirubin Urine Urobilinogen Ur Leukocyte Esterase Urine WBC (Auto) Urine RBC (Auto) Ur Squamous Epith Cells Hyaline Casts Attending/Attestation - Attestation I have personally seen and examined this patient.: Yes I have fully participated in the care of the patient.: Yes I have reviewed all pertinent clinical information: Yes Notes (Text): 02/18/18 12:53 I have seen and examined patient with GI fellow. Agree with above documentation with the following additions. In brief, this is a 73 year old female with history of PVD s/p fem-fem bypass on plavix with recent vascular intervention for in-stent stenosis, DM, HTN, COPD, diverticulitis s/p partial colon resection who presents to hospital with complaint of abdominal pain which started two days ago. Prior to this she was in usual state of health. She describes sharp epigastric 10/10 intensity pain radiating to right side associated with nausea and two episodes of non-bloody emesis. She claims during this time period her stools have been loose in consistency but denies diarrhea, fever/chills, weight loss, or rectal bleeding. She had a colonoscopy in [address] Lehman which showed diverticulosis and normal appearing anastomosis. Review of vitals from today shows elevated BP and tachycardia. DM / HTN COPD PVD on plavix, recent vascular intervention History of partial colon resection secondary to diverticulitis Abdominal pain - acute diverticulitis CT imaging reviewed by me showing cecal wall thickening with acute diverticulitis, no associated hunter-colonic abscess - Clear liquid diet as tolerated - Continue with antibiotic therapy - Obtain stool studies (culture, c-difficile) - Patient will require repeat colonoscopy within 6-8 weeks following resolution of acute diverticulitis episode. Will continue to monitor patient clinical course.
--- NOTE | 2018-02-18 12:47 | CARD ---
APPROVED REPORT EKG Measurement Heart [id number] <Conclusion> Sinus tachycardia Otherwise normal ECG
--- NOTE | 2018-02-18 14:48 | CP.PCM.CON ---
History of Present Illness - History of Present Illness History of Present Illness: INFECTIOUS DISEASE CONSULT HPI; 73-year-old female with PMH of diabetes mellitus type 2, PVD on Plavix S/P femorofemoral bypass 01/2017 and recent atherectomy of right popliteal an in- stent stenosis on 01/28/18, hypertension, COPD, diverticulitis,S/P partial colon resection who presented to [facility] on 02/17/18 with abdominal pains and gas pains. Patient states this was sudden in onset with started as a cramping lower abdominal pain and progressively worsened. He also complains of loose stools along with nausea and vomiting. Patient denies fever or chills CT of the abdomen and pelvis without by mouth or IV contrast was performed and found to have CECITIS.. Patient admits to recent evaluation of right leg with angiogram required angioplasty for the right leg popliteal lesion as well as with of the stent stenosis of the patient's prior bypass. Infectious disease consultation requested by PMD for increasing leukocytosis and abdominal pain. PATIENT WAS EMPIRICALLY STARTED ON iv cIPRO FOR 100 EVERY 12 HOURLY AND iv fLAGYL 500 MG EVERY 8 HOURLY. PATIENT CONTINUES TO HAVE CRAMPY ABDOMINAL PAIN MAINLY LOCALIZED TO RIGHT LOWER QUADRANT AND MID LOWER ABDOMEN. DENIES HISTORY OF MELENA. COMPLAINS OFF NO BOWEL MOVEMENTS SINCE THURSDAY. 12 system ROS performed and negative except where stated PMH: DM, HTN, PVD PSH: Colectomy, Hysterectomy, breast mass SH: Former smoker quit 3 weeks ago, no EtOH, No drug use All: PCN, Sulfa Meds: See DEC, on ASA and plavix. Endo: EGD 2012 - erosive gastritis, hiatal hernia EGD 2014 - hiatal hernia, gastritis, ? esophageal stricture Colonoscopy 2015 - Internal hemorrhoids, diverticulosis, evidence of colectomy with anastamosis *All biopsies unremarkable *Esophagram in 2017 without esophageal abnormalitie Review of Systems - Review of Systems All systems: reviewed and no additional remarkable complaints except ( HISTORY AND PHYSICAL.) Past Patient History - Infectious Disease Hx of Infectious Diseases: None - Past Medical History & Family History Past Medical History?: Yes - Past Social History Smoking Status: Light Smoker < 10 Cigarettes Daily - CARDIAC Hx Hypercholesterolemia: Yes Hx Hypertension: Yes - PULMONARY Hx Asthma: Yes Hx Bronchitis: Yes Hx Chronic Obstructive Pulmonary Disease (COPD): Yes Hx Pneumonia: Yes - NEUROLOGICAL Hx Neurological Disorder: No - HEENT Hx HEENT Problems: Yes Hx Cataracts: Yes - RENAL Hx Chronic Kidney Disease: No - ENDOCRINE/METABOLIC Hx Endocrine Disorders: Yes Hx Diabetes Mellitus Type 2: Yes - HEMATOLOGICAL/ONCOLOGICAL Hx Human Immunodeficiency Virus (HIV): No - INTEGUMENTARY Hx Dermatological Problems: No - MUSCULOSKELETAL/RHEUMATOLOGICAL Hx Arthritis: Yes (HANDS) Hx Falls: No Hx Fractures: Yes (RT.FOOT/CASTED NO OR) Hx Osteoporosis: Yes - GASTROINTESTINAL Hx Gastrointestinal Disorders: Yes Hx Bowel Surgery: Yes (COLON RESECTION FOR OBSTRUCTION?) Hx Constipation: Yes Hx Gastroesophageal Reflux: Yes Other/Comment: HX.OBSTRUCTION HAD BOWEL RESECTION - GENITOURINARY/GYNECOLOGICAL Hx Genitourinary Disorders: No - PSYCHIATRIC Hx Anxiety: Yes Hx Substance Use: No - SURGICAL HISTORY Hx Surgeries: Yes Hx Angiogram: Yes (Stenting bilateral legs) Hx Breast Biopsy: Yes (RT. 11 yrs old) Hx Herniorrhaphy: Yes (UMBILICAL) Hx Hysterectomy: Yes (RYANN) Hx Orthopedic Surgery: Yes (OMAR. BUNIONECTOMY) Hx Tubal Ligation: Yes - ANESTHESIA Hx Anesthesia: Yes Hx Anesthesia Reactions: No Hx Malignant Hyperthermia: No Meds Allergies/Adverse Reactions: Allergies Allergy/AdvReac Type Severity Reaction Status Date / Time Penicillins Allergy Intermediate SWELLING Verified 02/17/18 10:09 Sulfa (Sulfonamide Allergy Intermediate RASH Verified 02/17/18 10:09 Antibiotics) tomato AdvReac Intermediate GI UPSET Verified 02/17/18 10:09 - Medications Medications: Current Medications Amlodipine Besylate (Norvasc) 5 mg PO DAILY [facility] Last Admin: 02/18/18 10:05 Dose: 5 mg Cilostazol (Pletal) 50 mg PO BID [facility] Last Admin: 02/18/18 11:00 Dose: 50 mg Clopidogrel Bisulfate (Plavix) 75 mg PO DAILY [facility] Last Admin: 02/18/18 10:05 Dose: 75 mg Enoxaparin Sodium (Lovenox) 30 mg SC Q12 [facility] Last Admin: 02/18/18 10:13 Dose: 30 mg Metronidazole (Flagyl) 500 mg in 100 mls @ 100 mls/hr IVPB Q8H [facility] PRN Reason: Protocol Last Admin: 02/18/18 14:32 Dose: 100 mls/hr Ciprofloxacin (Cipro 400mg/200ml Dsw) 400 mg in 200 mls @ 133 mls/hr IVPB Q12H [facility] PRN Reason: Protocol Last Admin: 02/18/18 10:14 Dose: 133 mls/hr Potassium Chloride/Dextrose/Sod Cl (Potassium Chl 20 Meq In D5-1/2ns) 1,000 mls @ 100 mls/hr IV .Q10H [facility] Last Admin: 02/18/18 12:29 Dose: Not Given Insulin Aspart (Novolog) 0 unit SC ACHS [facility] PRN Reason: Protocol Last Admin: 02/18/18 12:24 Dose: 2 unit Losartan Potassium (Cozaar) 25 mg PO DAILY [facility] Last Admin: 02/18/18 10:05 Dose: 25 mg Morphine Sulfate (Morphine) 2 mg IVP Q4 PRN PRN Reason: Pain, severe (8-10) Last Admin: 02/18/18 10:06 Dose: 2 mg Ondansetron HCl (Zofran Inj) 4 mg IVP Q8 PRN PRN Reason: Nausea/Vomiting Last Admin: 02/18/18 09:00 Dose: 4 mg Pantoprazole Sodium (Protonix Inj) 40 mg IVP DAILY [facility] Last Admin: 02/18/18 10:05 Dose: 40 mg Physical Exam - Constitutional Appears: No Acute Distress - Head Exam Head Exam: NORMAL INSPECTION - Eye Exam Eye Exam: EOMI, PERRL - ENT Exam ENT Exam: Mucous Membranes Dry, Normal Oropharynx - Neck Exam Neck exam: Positive for: Normal Inspection - Respiratory Exam Respiratory Exam: Clear to Auscultation Bilateral, NORMAL BREATHING PATTERN - Cardiovascular Exam Cardiovascular Exam: REGULAR RHYTHM, +S1, +S2 - GI/Abdominal Exam GI & Abdominal Exam: Normal Bowel Sounds, Soft, Tenderness (MAINLY RIGHT LOWER QUADRANT AND SUPRAPUBIC.). absent: Distended, Mass, Rebound - Extremities Exam Extremities exam: Positive for: pedal pulses present. Negative for: calf tenderness, pedal edema - Neurological Exam Neurological exam: Alert, CN II-XII Intact, Oriented x3, Reflexes Normal - Skin Skin Exam: Normal Color, Warm Results - Vital Signs Recent Vital Signs: Last Vital Signs Temp 98.5 F 02/18/18 08:10 Pulse 92 H 02/18/18 08:10 Resp 20 02/18/18 08:10 BP 159/52 H 02/18/18 08:10 Pulse Ox 97 02/18/18 08:10 - Labs Result Diagrams: 02/18/18 06:41 02/18/18 06:41 Labs: Laboratory Results - last 24 hr 02/17/18 02/17/18 02/18/18 16:14 21:10 06:41 WBC 20.7 H RBC 3.60 L Hgb 10.6 L Hct 31.7 L MCV 88.0 MCH 29.5 MCHC 33.5 RDW 16.0 H Plt Count 266 MPV 8.1 Neut % (Auto) 86.9 H Lymph % (Auto) 6.4 L [place] % (Auto) 6.4 Eos % (Auto) 0.1 Baso % (Auto) 0.2 Neut # (Auto) 17.9 H Lymph # (Auto) 1.3 [place] # (Auto) 1.3 H Eos # (Auto) 0.0 Baso # (Auto) 0.0 Neutrophils % (Manual) 89 H Lymphocytes % (Manual) 5 L Monocytes % (Manual) 6 Platelet Estimate Normal Large Platelets Present Hypochromasia (manual) Slight Poikilocytosis (manual Slight Anisocytosis (manual) Slight Ovalocytes Slight Sodium Potassium Chloride Carbon Dioxide Anion Gap BUN Creatinine Est GFR ( Amer) Est GFR (Non-Af Amer) POC Glucose (mg/dL) 182 H 183 H Random Glucose Calcium Total Bilirubin AST ALT Alkaline Phosphatase Total Protein Albumin Globulin Albumin/Globulin Ratio 02/18/18 02/18/18 02/18/18 06:41 07:11 11:03 WBC RBC Hgb Hct MCV MCH MCHC RDW Plt Count MPV Neut % (Auto) Lymph % (Auto) [place] % (Auto) Eos % (Auto) Baso % (Auto) Neut # (Auto) Lymph # (Auto) [place] # (Auto) Eos # (Auto) Baso # (Auto) Neutrophils % (Manual) Lymphocytes % (Manual) Monocytes % (Manual) Platelet Estimate Large Platelets Hypochromasia (manual) Poikilocytosis (manual Anisocytosis (manual) Ovalocytes Sodium 136 Potassium 3.2 L Chloride 96 L Carbon Dioxide 28 Anion Gap 15 BUN 8 Creatinine 0.6 L Est GFR ( Amer) > 60 Est GFR (Non-Af Amer) > 60 POC Glucose (mg/dL) 203 H 208 H Random Glucose 219 H Calcium 9.0 Total Bilirubin 0.5 AST 31 ALT 16 Alkaline Phosphatase 86 Total Protein 7.3 Albumin 3.6 Globulin 3.7 Albumin/Globulin Ratio 1.0 - Imaging and Cardiology CT scan - abdomen/PELVIS WITHOUT BY MOUTH OR iv CONTRAST Status: Report reviewed by me (cecitis.) Assessment & Plan (1) Abdominal pain Status: Acute (2) Diverticulitis Assessment and Plan: pancultures Stools for occult blood 1 continue IV Cipro 400 every 12 hourly 02/17/18 Continue IV Flagyl 500 mg every 8 hourly 02/17/18 ADD ONE DOSE OF GENTAMICIN 120 MG iv PIGGYBACK STAT. fOLLOW-UP CULTURES TO ADJUST ANTIBIOTICS. PATIENT ON CLEAR LIQUIDS PER GI. Status: Acute (3) Anemia Assessment and Plan: h&h 10.6/31.7. wATCH h&h. Status: Acute (4) Constipation Status: Acute (5) PVD (peripheral vascular disease) Status: Acute (6) Status post femorofemoral bypass surgery Status: Acute (7) Diabetes mellitus Status: Chronic (8) Hypertension Status: Chronic
--- NOTE | 2018-02-19 00:58 | PN ---
DATE: 02/18/2018 DAILY PROGRESS NOTE SUBJECTIVE: The patient is seen today, 02/18/2018. She still has abdominal pain. OBJECTIVE: VITAL SIGNS: Blood pressure 159/52, temperature 98.5, respiratory rate 20 and pulse 92. HEENT: Pupils equal, reactive to light. Normal-appearing mucosa of the conjunctivae, oropharynx and nasal membrane mucosa. NECK: Supple. No JVD. No carotid bruit. No lymph node. No thyromegaly. CHEST AND LUNGS: Bilateral symmetrical expansion. Good air exchange. No rales, no rhonchi. CARDIOVASCULAR SYSTEM: PMI not localized. S1, S2. No additional sounds. ABDOMEN: Normoactive bowel sounds. Tenderness of the lower abdomen right more than left. No rebound tenderness or rigidity. EXTREMITIES: No cyanosis, no clubbing, no edema. 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 No neurological deficit could be appreciated. ASSESSMENT: 1. Cecitis/diverticulitis. 2. Chronic obstructive pulmonary disease. 3. Hypertension. 4. Peripheral vascular disease. 5. Type 2 diabetes mellitus. PLAN: Continue IV fluid and continue potassium supplement as well as GI consult. Continue the Cipro and Flagyl. Kd Ledesma MD
[2018-02-19] MEDS: Morphine 4 MG/ML VIAL IVP PRN ×4 (03:23→20:23)
[2018-02-19] MEDS: metroNIDAZOLE IV 500 mg/100 ml 500 MG/100 ML BAG IVPB SCH ×3 (06:12→22:52)
[2018-02-19] MEDS: Potassium Ch 20mEq in D5-1/2NS 1,000 ML IV SCH ×2 (06:14→20:29)
--- NOTE | 2018-02-19 07:27 | CP.PCM.PN ---
<AvaniroxannaGabino hurley - Last Filed: 02/19/18 09:49> Subjective - Date & Time of Evaluation Date of Evaluation: 02/19/18 Time of Evaluation: 06:45 - Subjective Subjective: PGY5 GI Fellow Progress Note Patient seen and examined bedside this morning. The patient states that she is still having fairly significant lower abdominal pain, worst in the suprapubic region. Denies any fever, chills, nausea and vomiting overnight. Still without much appetite. Of note, admits she has performed Cologard the past 2-3 years. 12 system ROS performed and negative except where stated. Objective - Vital Signs/Intake and Output Vital Signs (last 24 hours): Temp Pulse Resp BP Pulse Ox 98.5 F 88 20 113/60 94 L 02/19/18 00:00 02/19/18 00:00 02/19/18 00:00 02/19/18 00:00 02/19/18 00:00 Intake and Output: 02/19/18 02/19/18 06:59 18:59 Intake Total 1040 Balance 1040 - Medications Medications: Current Medications Amlodipine Besylate (Norvasc) 5 mg PO DAILY [facility] Last Admin: 02/18/18 10:05 Dose: 5 mg Cilostazol (Pletal) 50 mg PO BID [facility] Last Admin: 02/18/18 17:25 Dose: 50 mg Clopidogrel Bisulfate (Plavix) 75 mg PO DAILY [facility] Last Admin: 02/18/18 10:05 Dose: 75 mg Enoxaparin Sodium (Lovenox) 30 mg SC Q12 [facility] Last Admin: 02/18/18 21:22 Dose: 30 mg Metronidazole (Flagyl) 500 mg in 100 mls @ 100 mls/hr IVPB Q8H [facility] PRN Reason: Protocol Last Admin: 02/19/18 06:12 Dose: 100 mls/hr Ciprofloxacin (Cipro 400mg/200ml Dsw) 400 mg in 200 mls @ 133 mls/hr IVPB Q12H [facility] PRN Reason: Protocol Last Admin: 02/18/18 21:20 Dose: 133 mls/hr Potassium Chloride/Dextrose/Sod Cl (Potassium Chl 20 Meq In D5-1/2ns) 1,000 mls @ 100 mls/hr IV .Q10H [facility] Last Admin: 02/19/18 06:14 Dose: 100 mls/hr Insulin Aspart (Novolog) 0 unit SC ACHS [facility] PRN Reason: Protocol Last Admin: 02/18/18 21:50 Dose: Not Given Losartan Potassium (Cozaar) 25 mg PO DAILY [facility] Last Admin: 02/18/18 10:05 Dose: 25 mg Morphine Sulfate (Morphine) 2 mg IVP Q4 PRN PRN Reason: Pain, severe (8-10) Last Admin: 02/19/18 03:23 Dose: 2 mg Ondansetron HCl (Zofran Inj) 4 mg IVP Q8 PRN PRN Reason: Nausea/Vomiting Last Admin: 02/18/18 09:00 Dose: 4 mg Pantoprazole Sodium (Protonix Inj) 40 mg IVP DAILY [facility] Last Admin: 02/18/18 10:05 Dose: 40 mg - Labs Labs: 02/18/18 06:41 02/18/18 06:41 - Constitutional Appears: Non-toxic, No Acute Distress - Eye Exam Eye Exam: EOMI, PERRL - ENT Exam ENT Exam: Mucous Membranes Moist - Respiratory Exam Respiratory Exam: Clear to Ausculation Bilateral. absent: Rales, Rhonchi, Wheezes - Cardiovascular Exam Cardiovascular Exam: RRR, +S1, +S2 - GI/Abdominal Exam GI & Abdominal Exam: Soft, Tenderness (RLQ, LLQ, suprapubic), Normal Bowel Sounds. absent: Distended, Firm, Guarding, Rigid, Organomegaly - Extremities Exam Extremities Exam: Normal Inspection. absent: Pedal Edema - Neurological Exam Neurological Exam: Alert, Awake, Oriented x3 - Psychiatric Exam Psychiatric exam: Normal Affect, Normal Mood - Skin Skin Exam: Dry, Warm Assessment and Plan - Assessment and Plan (Free Text) Assessment: Patient is a 73yo female with PMHx significant for PVD on plavix s/p fem-fem bypass (01/2017) and recent artherectomy of right popliteal and in-stent stenosis (01/28/18), DM, HTN, COPD, diverticulitis s/p partial colon resection who presents to the hospital with abdominal pain. -Acute colitis -H/O diverticulosis/itis with prior surgical resection -PVD -COPD -DM -HTN Plan: -Ongoing abdominal pain; analagesia as needed - ordered by primary service -Check CTA abd/pevis - R/O ischemic colitis given known PVD history -Continue empiric antibiotic coverage - Cipro/Flagyl -No BM overnight -Advance diet as tolerated -Colonoscopy as outpatient recommended - 6-8wks after resolution of acute illness <PikeRodolfo esquivell - Last Filed: 02/19/18 13:06> Objective - Vital Signs/Intake and Output Vital Signs (last 24 hours): Temp Pulse Resp BP Pulse Ox 98.2 F 71 20 119/44 L 96 02/19/18 09:12 02/19/18 09:12 02/19/18 09:12 02/19/18 09:12 02/19/18 09:12 Intake and Output: 02/19/18 02/19/18 06:59 18:59 Intake Total 1040 Balance 1040 - Medications Medications: Current Medications Amlodipine Besylate (Norvasc) 5 mg PO DAILY [facility] Last Admin: 02/19/18 10:16 Dose: 5 mg Cilostazol (Pletal) 50 mg PO BID [facility] Last Admin: 02/19/18 10:16 Dose: 50 mg Clopidogrel Bisulfate (Plavix) 75 mg PO DAILY [facility] Last Admin: 02/19/18 10:20 Dose: 75 mg Enoxaparin Sodium (Lovenox) 30 mg SC Q12 [facility] Last Admin: 02/19/18 10:16 Dose: 30 mg Metronidazole (Flagyl) 500 mg in 100 mls @ 100 mls/hr IVPB Q8H [facility] PRN Reason: Protocol Last Admin: 02/19/18 06:12 Dose: 100 mls/hr Ciprofloxacin (Cipro 400mg/200ml Dsw) 400 mg in 200 mls @ 133 mls/hr IVPB Q12H [facility] PRN Reason: Protocol Last Admin: 02/19/18 10:17 Dose: 133 mls/hr Potassium Chloride/Dextrose/Sod Cl (Potassium Chl 20 Meq In D5-1/2ns) 1,000 mls @ 100 mls/hr IV .Q10H [facility] Last Admin: 02/19/18 06:14 Dose: 100 mls/hr Insulin Aspart (Novolog) 0 unit SC ACHS [facility] PRN Reason: Protocol Last Admin: 02/19/18 12:29 Dose: 1 unit Losartan Potassium (Cozaar) 25 mg PO DAILY [facility] Last Admin: 02/19/18 10:17 Dose: 25 mg Morphine Sulfate (Morphine) 2 mg IVP Q4 PRN PRN Reason: Pain, severe (8-10) Last Admin: 02/19/18 09:25 Dose: 2 mg Ondansetron HCl (Zofran Inj) 4 mg IVP Q8 PRN PRN Reason: Nausea/Vomiting Last Admin: 02/19/18 09:25 Dose: 4 mg Pantoprazole Sodium (Protonix Inj) 40 mg IVP DAILY [facility] Last Admin: 02/19/18 10:16 Dose: 40 mg - Labs Labs: 02/19/18 08:45 02/19/18 08:45 Attending/Attestation - Attestation I have personally seen and examined this patient.: Yes I have fully participated in the care of the patient.: Yes I have reviewed all pertinent clinical information, including history, physical exam and plan: Yes Notes (Text): 02/19/18 13:05 73 year old female with atheroscleroic disease admitted with abdominal pain, found to have right sided colitis. Ddx includes infectious, inflammatory and ischemic. Recommend CT angio considering h/o atherosclerotic disease and diffuse calcification of aorta including SMA. She may have isolated right sided colonic ischemia. Continue IVF and IV abx. Await stool studies. Recommend outpatient colonoscopy when acute illness resolves.
[2018-02-19] MEDS: (Novolog) Insulin Aspart, Recombinant 100 u/ml 10 ml vial SC SCH ×4 (08:20→21:53)
[2018-02-19 09:04] LABS: BASO # 0.1 K/uL (0.0-0.2); BASO % 0.5 % (0.0-2.0); EOS # 0.2 K/uL (0.0-0.7); EOS % 1.3 % (0.0-4.0); HEMOGLOBIN 9.4 g/dL (11.0-16.0); LYMPH # 1.8 K/uL (1.0-4.3); LYMPH % 13.4 % (20.0-40.0); MEAN CELL VOLUME 89.4 fL (81.0-99.0); MEAN CORPUSCULAR HEMOGLOBIN 30.3 pg (27.0-31.0); MEAN CORPUSCULAR HGB CONC 33.8 g/dL (33.0-37.0); MEAN PLATELET VOLUME 8.4 fL (7.2-11.7); MONO % 7.8 % (0.0-10.0); NEUT # 10.2 K/uL (1.8-7.0); NRBC % 0.1 % (0.0-2.0); RBC 3.1 Mil/uL (3.80-5.20); RED CELL DISTRIBUTION WIDTH 15.7 % (11.5-14.5); WHITE BLOOD COUNT 13.3 K/uL (4.8-10.8)
[2018-02-19 09:19] LABS: BLOOD UREA NITROGEN 9 mg/dL (7-17); CALCIUM 8.1 mg/dl (8.6-10.4); GFR AFRICAN-AMERICAN > 60; GFR NON-AFRICAN AMERICAN > 60
[2018-02-19] MEDS: Enoxaparin 30 mg Syringe SC SCH ×2 (10:16→21:50)
[2018-02-19] MEDS: Cilostazol 50 mg Tab UD PO SCH ×2 (10:16→18:02)
[2018-02-19] MEDS: Ciprofloxacin 400mg/200ml D5W 400 MG/200 ML BAG IVPB SCH ×2 (10:17→21:00)
[2018-02-19] MEDS ORDERED: Iodixanol 320 MG/ML 100 ML BOTTLE IV ONE (16:07)
--- NOTE | 2018-02-19 17:18 | CT ---
PROCEDURE: CT Angiography Abdomen, Pelvis and Lower Extremity with Contrast HISTORY: r/o ischemic colitis - cecal colitis COMPARISON: 02/17/2018 TECHNIQUE: Technique: CT angiography of the abdomen, pelvis and bilateral lower extremities performed in the arterial phase of enhancement. Coronal and sagittal reformats, and well as rotating MIP images of the vessels generated at the workstation. Intravenous contrast dose: 100 mL Visipaque 320 Radiation dose: Total exam DLP = 504.42 mGy-cm. This CT exam was performed using one or more of the following dose reduction techniques: Automated exposure control, adjustment of the mA and/or kV according to patient size, and/or use of iterative reconstruction technique. FINDINGS: CT ANGIOGRAPHY: ABDOMINAL AORTA:: No aneurysm. No evidence of dissection. MAJOR AORTIC BRANCHES: Celiac Sed[place]: Extensive atherosclerotic calcification with moderate to severe stenosis at the origin. Superior mesenteric artery: Extensive atherosclerotic calcification with mild to moderate stenosis. . No evidence of thrombus or filling defect. Branch vessels are unremarkable. Inferior mesenteric artery: Unremarkable. Renal arteries: Extensive atherosclerotic calcification at the origins. Please note that there are 2 left renal arteries. There is likely stenosis at the origins of the renal arteries although the extent is difficult to evaluate due to the presence of calcified plaque. PELVIC ARTERIES: Right Common Iliac: Unremarkable. Right External Iliac: Occluded. Right Internal Iliac: Unremarkable. Left Common Iliac: Unremarkable. Left External Iliac: Unremarkable. Left Internal Iliac: Unremarkable. There is a femoral-femoral shunt. NON-ANGIOGRAPHIC ASPECT OF THE EXAM: LOWER THORAX: Unremarkable. LIVER: Unremarkable. No gross lesion or ductal dilatation. GALLBLADDER AND BILE DUCTS: Unremarkable. PANCREAS: Unremarkable. No gross lesion or ductal dilatation. SPLEEN: Normal size. 2.9 cm low-attenuation lesion in the anterior spleen with some coarse calcification. Nonspecific. ADRENALS: Unremarkable. No mass. KIDNEYS AND URETERS: Unremarkable. No hydronephrosis. No solid mass. STOMACH AND BOWEL: Mural thickening of the cecum and proximal ascending colon with surrounding inflammatory change. The extent of mural thickening is mildly improved compared to the prior examination. The patient is status post low anterior resection. Diverticular disease of the cecum and ascending colon is noted. 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 No pericecal abscess. No evidence of bowel obstruction. APPENDIX: Normal appendix. PERITONEUM: Minimal ascites LYMPH NODES: Unremarkable. No enlarged lymph nodes. BLADDER: Poorly distended. Thickened wall, nonspecific. REPRODUCTIVE: Status post hysterectomy BONES: Grade 1 anterolisthesis at L4-5 without spondylolysis. OTHER FINDINGS: None. IMPRESSION: No evidence of mesenteric vascular occlusion. Mural thickening of the cecum and ascending colon mildly improved compared to 02/17/2018. Surrounding inflammatory change noted. No abscess. No free air. Status post low anterior resection. Additional minor findings as above.
--- NOTE | 2018-02-19 20:02 | CP.PCM.PN ---
Subjective - Date & Time of Evaluation Date of Evaluation: 02/19/18 Time of Evaluation: 20:02 - Subjective Subjective: CHIEF COMPLAINTS TODAY : AFEBRILE C/O lower abdominal pain, worst in the suprapubic region. DENIES ANY BM SINCE THURSDAY Denies nausea and vomiting overnight. appetite POOR ROS. HEENT : N. Resp : No cough, wheezing ,pleuritic CP ,or hemoptysis Cardio : No anginal CP, PND, orthopnea, palpitation GI : +VE LOWER ABDOMINAL PAIN, NO n/v ,diarrhea or GI bleeding . 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 Musculoskel : No joint swelling , Derm : No rash Psych : Normal affect. Ext : No swelling ,calf pain PE. Pt. is alert awake in no distress. V.S As noted in the chart Head ,ear nose,throat and eyes : Normal. Neck : Supple with normal carotids. Lungs: Clear air entry. Heart : S1 & S2 normal with S4. No murmur. Abd : SOFT, MILD TENDERNESS LOWER ABDOMEN WITH normal bowel sounds. Neuro : Moves all ext. with no localized deficit. Ext : No edema with intact pulses.Non tender calves Derm : No rashes or decubitus ulcer. LABS/RADIOLOGY: wbc IMPROVING 13.3 H/H 9.4/27.7 U/A -VE Objective - Vital Signs/Intake and Output Vital Signs (last 24 hours): Temp Pulse Resp BP Pulse Ox 98.6 F 75 20 92/42 L 96 02/19/18 16:00 02/19/18 16:00 02/19/18 16:00 02/19/18 16:00 02/19/18 16:00 Intake and Output: 02/19/18 02/20/18 18:59 06:59 Intake Total 2370 Balance 2370 - Medications Medications: Current Medications Amlodipine Besylate (Norvasc) 5 mg PO DAILY [facility] Last Admin: 02/19/18 10:16 Dose: 5 mg Cilostazol (Pletal) 50 mg PO BID [facility] Last Admin: 02/19/18 18:02 Dose: 50 mg Clopidogrel Bisulfate (Plavix) 75 mg PO DAILY [facility] Last Admin: 02/19/18 10:20 Dose: 75 mg Enoxaparin Sodium (Lovenox) 30 mg SC Q12 [facility] Last Admin: 02/19/18 10:16 Dose: 30 mg Metronidazole (Flagyl) 500 mg in 100 mls @ 100 mls/hr IVPB Q8H [facility] PRN Reason: Protocol Last Admin: 02/19/18 14:43 Dose: 100 mls/hr Ciprofloxacin (Cipro 400mg/200ml Dsw) 400 mg in 200 mls @ 133 mls/hr IVPB Q12H [facility] PRN Reason: Protocol Last Admin: 02/19/18 10:17 Dose: 133 mls/hr Potassium Chloride/Dextrose/Sod Cl (Potassium Chl 20 Meq In D5-1/2ns) 1,000 mls @ 100 mls/hr IV .Q10H [facility] Last Admin: 02/19/18 06:14 Dose: 100 mls/hr Insulin Aspart (Novolog) 0 unit SC ACHS [facility] PRN Reason: Protocol Last Admin: 02/19/18 16:57 Dose: 1 unit Losartan Potassium (Cozaar) 25 mg PO DAILY [facility] Last Admin: 02/19/18 10:17 Dose: 25 mg Morphine Sulfate (Morphine) 2 mg IVP Q4 PRN PRN Reason: Pain, severe (8-10) Last Admin: 02/19/18 14:41 Dose: 2 mg Ondansetron HCl (Zofran Inj) 4 mg IVP Q8 PRN PRN Reason: Nausea/Vomiting Last Admin: 02/19/18 09:25 Dose: 4 mg Pantoprazole Sodium (Protonix Inj) 40 mg IVP DAILY [facility] Last Admin: 02/19/18 10:16 Dose: 40 mg - Labs Labs: 02/19/18 08:45 02/19/18 08:45 Assessment and Plan (1) Abdominal pain Status: Acute (2) Diverticulitis Assessment & Plan: continue IV Cipro 400 every 12 hourly 02/17/18 Continue IV Flagyl 500 mg every 8 hourly 02/17/18 ADD ONE DOSE OF GENTAMICIN 120 MG iv PIGGYBACK STAT.-GIVEN 02/18/18. fOLLOW-UP CULTURES TO ADJUST ANTIBIOTICS. PATIENT ON CLEAR LIQUIDS PER GI. Status: Acute (3) Anemia Status: Acute (4) Constipation Status: Acute (5) PVD (peripheral vascular disease) Status: Acute (6) Status post femorofemoral bypass surgery Status: Acute (7) Diabetes mellitus Status: Chronic (8) Hypertension Status: Chronic
[2018-02-20] MEDS: Potassium Ch 20mEq in D5-1/2NS 1,000 ML IV SCH ×2 (05:40→14:20)
[2018-02-20] MEDS: metroNIDAZOLE IV 500 mg/100 ml 500 MG/100 ML BAG IVPB SCH ×3 (06:06→22:52)
[2018-02-20] MEDS: (Novolog) Insulin Aspart, Recombinant 100 u/ml 10 ml vial SC SCH ×4 (08:03→21:35)
[2018-02-20] MEDS: Morphine 4 MG/ML VIAL IVP PRN ×3 (08:06→20:14)
[2018-02-20] MEDS: Ciprofloxacin 400mg/200ml D5W 400 MG/200 ML BAG IVPB SCH ×2 (10:23→21:00)
[2018-02-20] MEDS: Enoxaparin 30 mg Syringe SC SCH ×2 (10:25→21:37)
[2018-02-20] MEDS: Cilostazol 50 mg Tab UD PO SCH ×2 (10:25→17:41)
--- NOTE | 2018-02-20 11:25 | PN ---
DATE: 02/19/2018. SUBJECTIVE: The patient is seen on 02/19/2018 as she was having less abdominal pain and was tolerating liquid diet. OBJECTIVE: VITAL SIGNS: Blood pressure 119/44, temperature 98.2, respiratory rate 20 and pulse 71. HEENT: Pupils equal, reactive to light. Normal-appearing mucosa of the conjunctivae, oropharynx and nasal membrane mucosa. NECK: Supple. No JVD. No carotid bruit. No lymph node. No thyromegaly. CHEST AND LUNGS: Bilateral symmetrical expansion. Good air exchange. No rales, no rhonchi. CARDIOVASCULAR: PMI not localized. S1, S2. No additional sounds. ABDOMEN: Positive bowel sounds, decreased tenderness. No rebound tenderness. No rigidity. EXTREMITIES: No cyanosis, no clubbing, no edema. 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 No neurological deficit could be appreciated. ASSESSMENT: 1. Colitis/cecitis. 2. Hypertension, type 2 diabetes mellitus, peripheral vascular disease. PLAN Continue current antibiotics and follow GI recommendations and advance diet as tolerated. Continue IV fluid, supplement electrolytes. Kd Ledesma MD
--- NOTE | 2018-02-20 12:45 | CP.PCM.PN ---
<Dieudonne Burger - Last Filed: 02/20/18 12:45> Subjective - Date & Time of Evaluation Date of Evaluation: 02/20/18 Time of Evaluation: 08:00 - Subjective Subjective: PGY4 GI Follow up Pt seen and examined bedside abd pain improved denies any nausea or vomiting ROS: 12 point ROS conducted, neg other than above Objective - Vital Signs/Intake and Output Vital Signs (last 24 hours): Temp Pulse Resp BP Pulse Ox 98.4 F 72 20 134/59 L 95 02/20/18 08:17 02/20/18 08:17 02/20/18 08:17 02/20/18 08:17 02/20/18 08:17 Intake and Output: 02/20/18 02/20/18 06:59 18:59 Intake Total 2100 Balance 2100 - Medications Medications: Current Medications Amlodipine Besylate (Norvasc) 5 mg PO DAILY [facility] Last Admin: 02/20/18 10:25 Dose: 5 mg Cilostazol (Pletal) 50 mg PO BID [facility] Last Admin: 02/20/18 10:25 Dose: 50 mg Clopidogrel Bisulfate (Plavix) 75 mg PO DAILY [facility] Last Admin: 02/20/18 10:25 Dose: 75 mg Enoxaparin Sodium (Lovenox) 30 mg SC Q12 [facility] Last Admin: 02/20/18 10:25 Dose: 30 mg Metronidazole (Flagyl) 500 mg in 100 mls @ 100 mls/hr IVPB Q8H [facility] PRN Reason: Protocol Last Admin: 02/20/18 06:06 Dose: 100 mls/hr Ciprofloxacin (Cipro 400mg/200ml Dsw) 400 mg in 200 mls @ 133 mls/hr IVPB Q12H [facility] PRN Reason: Protocol Last Admin: 02/20/18 10:23 Dose: 133 mls/hr Potassium Chloride/Dextrose/Sod Cl (Potassium Chl 20 Meq In D5-1/2ns) 1,000 mls @ 100 mls/hr IV .Q10H [facility] Last Admin: 02/20/18 05:40 Dose: Not Given Insulin Aspart (Novolog) 0 unit SC ACHS [facility] PRN Reason: Protocol Last Admin: 02/20/18 11:47 Dose: Not Given Losartan Potassium (Cozaar) 25 mg PO DAILY [facility] Last Admin: 02/20/18 10:25 Dose: 25 mg Morphine Sulfate (Morphine) 2 mg IVP Q4 PRN PRN Reason: Pain, severe (8-10) Last Admin: 02/20/18 08:06 Dose: 2 mg Ondansetron HCl (Zofran Inj) 4 mg IVP Q8 PRN PRN Reason: Nausea/Vomiting Last Admin: 02/20/18 01:44 Dose: 4 mg Pantoprazole Sodium (Protonix Inj) 40 mg IVP DAILY [facility] Last Admin: 02/20/18 10:24 Dose: 40 mg - Labs Labs: 02/19/18 08:45 02/19/18 08:45 - Constitutional Appears: Well, No Acute Distress - Head Exam Head Exam: ATRAUMATIC, NORMOCEPHALIC - Eye Exam Eye Exam: Normal appearance - ENT Exam ENT Exam: Mucous Membranes Moist, Normal Exam - Neck Exam Neck Exam: Normal Inspection - Respiratory Exam Respiratory Exam: Clear to Ausculation Bilateral, NORMAL BREATHING PATTERN. absent: Rales, Rhonchi, Wheezes, Respiratory Distress - Cardiovascular Exam Cardiovascular Exam: REGULAR RHYTHM, +S1, +S2 - GI/Abdominal Exam GI & Abdominal Exam: Soft, Normal Bowel Sounds. absent: Distended, Firm, Guarding, Rigid, Tenderness, Organomegaly - Extremities Exam Extremities Exam: absent: Joint Swelling, Pedal Edema - Neurological Exam Neurological Exam: Alert, Awake, Oriented x3 - Psychiatric Exam Psychiatric exam: Normal Affect, Normal Mood - Skin Skin Exam: Dry, Intact, Normal Color, Warm Assessment and Plan - Assessment and Plan (Free Text) Assessment: Patient is a 73yo female with PMHx significant for PVD on plavix s/p fem-fem bypass (01/2017) and recent artherectomy of right popliteal and in-stent stenosis (01/28/18), DM, HTN, COPD, diverticulitis s/p partial colon resection who presents to the hospital with abdominal pain. -Acute colitis -H/O diverticulosis/itis with prior surgical resection -PVD -COPD -DM -HTN Plan: -pain manangment as per PCP -CTA abd/pevis mild stenosus at SMA, otherwise neg -Continue empiric antibiotic coverage - Cipro/Flagyl -start miralax daily -Advance diet as tolerated -Colonoscopy as outpatient recommended - 6-8wks after resolution of acute illness D/W dr. hathaway <Jose Hathaway - Last Filed: 02/20/18 16:42> Objective - Vital Signs/Intake and Output Vital Signs (last 24 hours): Temp Pulse Resp BP Pulse Ox 98.7 F 83 20 109/54 L 96 02/20/18 16:00 02/20/18 16:00 02/20/18 16:00 02/20/18 16:00 02/20/18 16:00 Intake and Output: 02/20/18 02/20/18 06:59 18:59 Intake Total 2100 1150 Balance 2100 1150 - Medications Medications: Current Medications Amlodipine Besylate (Norvasc) 5 mg PO DAILY [facility] Last Admin: 02/20/18 10:25 Dose: 5 mg Cilostazol (Pletal) 50 mg PO BID [facility] Last Admin: 02/20/18 10:25 Dose: 50 mg Clopidogrel Bisulfate (Plavix) 75 mg PO DAILY [facility] Last Admin: 02/20/18 10:25 Dose: 75 mg Enoxaparin Sodium (Lovenox) 30 mg SC Q12 [facility] Last Admin: 02/20/18 10:25 Dose: 30 mg Metronidazole (Flagyl) 500 mg in 100 mls @ 100 mls/hr IVPB Q8H [facility] PRN Reason: Protocol Last Admin: 02/20/18 14:24 Dose: 100 mls/hr Ciprofloxacin (Cipro 400mg/200ml Dsw) 400 mg in 200 mls @ 133 mls/hr IVPB Q12H [facility] PRN Reason: Protocol Last Admin: 02/20/18 10:23 Dose: 133 mls/hr Potassium Chloride/Dextrose/Sod Cl (Potassium Chl 20 Meq In D5-1/2ns) 1,000 mls @ 100 mls/hr IV .Q10H [facility] Last Admin: 02/20/18 14:20 Dose: 100 mls/hr Insulin Aspart (Novolog) 0 unit SC ACHS [facility] PRN Reason: Protocol Last Admin: 02/20/18 11:47 Dose: Not Given Losartan Potassium (Cozaar) 25 mg PO DAILY [facility] Last Admin: 02/20/18 10:25 Dose: 25 mg Morphine Sulfate (Morphine) 2 mg IVP Q4 PRN PRN Reason: Pain, severe (8-10) Last Admin: 02/20/18 14:09 Dose: 2 mg Ondansetron HCl (Zofran Inj) 4 mg IVP Q8 PRN PRN Reason: Nausea/Vomiting Last Admin: 02/20/18 01:44 Dose: 4 mg Pantoprazole Sodium (Protonix Inj) 40 mg IVP DAILY [facility] Last Admin: 02/20/18 10:24 Dose: 40 mg - Labs Labs: 02/19/18 08:45 02/19/18 08:45 Attending/Attestation - Attestation I have personally seen and examined this patient.: Yes I have fully participated in the care of the patient.: Yes I have reviewed all pertinent clinical information, including history, physical exam and plan: Yes Notes (Text): 02/20/18 16:40 73 year old female with h/o atherosclerotic disease admitted with abdominal pain found to have right sided colitis. Suspect isolated right sided colonic ischemia. CT reviewed, mild mod SMA stenosis, but no occlusion. Recommend 2 week course of antibiotics. Recommend outpatient colonoscopy in 2 months. Continue Asa/plavix for atherosclerotic disease. Advance diet as tolerated. Will sign off.
--- NOTE | 2018-02-20 13:44 | PN ---
DATE: 02/20/2018. SUBJECTIVE: The patient is seen today 02/20/2018. She is not in any cardiopulmonary distress. The patient still has lower abdominal pain. PHYSICAL EXAMINATION: VITAL SIGNS: Blood pressure 134/59, temperature 98.4, respiratory rate 20 and pulse 72. HEENT: Pupils equal and reactive to light. Normal-appearing mucosa of the conjunctivae, oropharynx and nasal membrane mucosa. NECK: Supple. No JVD. No carotid bruit. No lymph node. No thyromegaly. CHEST AND LUNGS: Bilateral symmetrical expansion. Good air exchange. No rales, no rhonchi. CARDIOVASCULAR SYSTEM: PMI not localized. S1, S2. No additional sounds. ABDOMEN: Positive bowel sounds. There is slight tenderness in the lower abdomen right more than left. EXTREMITIES: No cyanosis, no clubbing, no edema. 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 LABORATORY DATA: White blood cell count dropped from 22.6 to 13.3 and potassium went up to 4.1. ASSESSMENT: 1. Colitis. 2. Peripheral vascular disease. 3. Type 2 diabetes mellitus. 4. Hypertension. PLAN: We will advance diet as tolerated. Follow GI recommendations. Continue current antibiotics. Kd Ledesma MD
--- NOTE | 2018-02-20 23:56 | CP.PCM.PN ---
Subjective - Date & Time of Evaluation Date of Evaluation: 02/20/18 Time of Evaluation: 23:56 - Subjective Subjective: CHIEF COMPLAINTS TODAY : temp 99.2 C/O lower abdominal pain states had a bm ROS. HEENT : N. Resp : No cough, wheezing ,pleuritic CP ,or hemoptysis Cardio : No anginal CP, PND, orthopnea, palpitation GI : +VE LOWER ABDOMINAL PAIN, NO n/v ,diarrhea or GI bleeding . 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 Musculoskel : No joint swelling , Derm : No rash Psych : Normal affect. Ext : No swelling ,calf pain PE. Pt. is alert awake in no distress. V.S As noted in the chart Head ,ear nose,throat and eyes : Normal. Neck : Supple with normal carotids. Lungs: Clear air entry. Heart : S1 & S2 normal with S4. No murmur. Abd : SOFT, MILD TENDERNESS LOWER ABDOMEN WITH normal bowel sounds. Neuro : Moves all ext. with no localized deficit. Ext : No edema with intact pulses.Non tender calves Derm : No rashes or decubitus ulcer. LABS/RADIOLOGY: wbc IMPROVING 13.3 H/H 9.4/27.7 U/A -VE Objective - Vital Signs/Intake and Output Vital Signs (last 24 hours): Temp Pulse Resp BP Pulse Ox 99.4 F 81 20 103/45 L 96 02/20/18 23:42 02/20/18 23:42 02/20/18 23:42 02/20/18 23:42 02/20/18 23:42 Intake and Output: 02/20/18 02/21/18 18:59 06:59 Intake Total 1150 1100 Balance 1150 1100 - Medications Medications: Current Medications Amlodipine Besylate (Norvasc) 5 mg PO DAILY [facility] Last Admin: 02/20/18 10:25 Dose: 5 mg Cilostazol (Pletal) 50 mg PO BID [facility] Last Admin: 02/20/18 17:41 Dose: 50 mg Clopidogrel Bisulfate (Plavix) 75 mg PO DAILY [facility] Last Admin: 02/20/18 10:25 Dose: 75 mg Enoxaparin Sodium (Lovenox) 30 mg SC Q12 [facility] Last Admin: 02/20/18 21:37 Dose: 30 mg Metronidazole (Flagyl) 500 mg in 100 mls @ 100 mls/hr IVPB Q8H [facility] PRN Reason: Protocol Last Admin: 02/20/18 22:52 Dose: 100 mls/hr Ciprofloxacin (Cipro 400mg/200ml Dsw) 400 mg in 200 mls @ 133 mls/hr IVPB Q12H [facility] PRN Reason: Protocol Last Admin: 02/20/18 21:00 Dose: 133 mls/hr Insulin Aspart (Novolog) 0 unit SC ACHS [facility] PRN Reason: Protocol Last Admin: 02/20/18 21:35 Dose: Not Given Losartan Potassium (Cozaar) 25 mg PO DAILY [facility] Last Admin: 02/20/18 10:25 Dose: 25 mg Morphine Sulfate (Morphine) 2 mg IVP Q4 PRN PRN Reason: Pain, severe (8-10) Last Admin: 02/20/18 20:14 Dose: 2 mg Ondansetron HCl (Zofran Inj) 4 mg IVP Q8 PRN PRN Reason: Nausea/Vomiting Last Admin: 02/20/18 01:44 Dose: 4 mg Pantoprazole Sodium (Protonix Inj) 40 mg IVP DAILY [facility] Last Admin: 02/20/18 10:24 Dose: 40 mg - Labs Labs: 02/19/18 08:45 02/19/18 08:45 Assessment and Plan (1) Abdominal pain Assessment & Plan: ABD. PAIN SLOWLY IMPROVING. ADVANCING DIET TOLERATED. Status: Acute (2) Diverticulitis Assessment & Plan: continue IV Cipro 400 every 12 hourly 02/17/18 Continue IV Flagyl 500 mg every 8 hourly 02/17/18 analgesics as per gi/PMD Status: Acute (3) Anemia Status: Acute (4) Constipation Status: Acute (5) PVD (peripheral vascular disease) Status: Acute (6) Status post femorofemoral bypass surgery Status: Acute (7) Diabetes mellitus Status: Chronic (8) Hypertension Status: Chronic
[2018-02-21] MEDS: Morphine 4 MG/ML VIAL IVP PRN ×3 (02:12→15:00)
[2018-02-21] MEDS: metroNIDAZOLE IV 500 mg/100 ml 500 MG/100 ML BAG IVPB SCH ×3 (06:10→22:09)
[2018-02-21] MEDS: Potassium Ch 20mEq in D5-1/2NS 1,000 ML IV SCH (06:11)
[2018-02-21] MEDS: (Novolog) Insulin Aspart, Recombinant 100 u/ml 10 ml vial SC SCH ×4 (08:00→21:45)
[2018-02-21] MEDS: Cilostazol 50 mg Tab UD PO SCH ×2 (09:53→17:37)
[2018-02-21] MEDS: Ciprofloxacin 400mg/200ml D5W 400 MG/200 ML BAG IVPB SCH ×2 (10:44→21:00)
[2018-02-21] MEDS: Enoxaparin 30 mg Syringe SC SCH ×2 (13:12→21:06)
--- NOTE | 2018-02-21 22:06 | PN ---
DATE: 02/21/2018. SUBJECTIVE: The patient is seen today 02/21/2018. She is not in any cardiopulmonary distress, still has lower abdominal pain. PHYSICAL EXAMINATION: VITAL SIGNS: Blood pressure 140/70, temperature 98.2, respiratory rate 18 and pulse 80. HEENT: Pupils equal, reactive to light. Normal-appearing mucosa of the conjunctivae, oropharynx and nasal membrane mucosa. NECK: Supple. No JVD. No carotid bruit. No lymph node. No thyromegaly. CHEST AND LUNGS: Bilateral symmetrical expansion. Good air exchange. No rales, no rhonchi. CARDIOVASCULAR SYSTEM: PMI not localized. S1 and S2. No additional sounds. ABDOMEN: Normoactive bowel sounds. No tenderness. No organomegaly. No masses. EXTREMITIES: No cyanosis, no clubbing, no edema. 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 No neurological deficits could be appreciated. ASSESSMENT: 1. Colitis. 2. Hypertension. 3. Type 2 diabetes mellitus. 4. Peripheral vascular disease. PLAN: Continue current IV antibiotics and IV fluids and follow GI recommendations. Kd Ledesma MD
[2018-02-22] MEDS ORDERED: Oxycodone/Acetaminophen 5/325 mg Tab PO ONE (00:33)
[2018-02-22] MEDS: metroNIDAZOLE IV 500 mg/100 ml 500 MG/100 ML BAG IVPB SCH (06:17)
[2018-02-22] MEDS: (Novolog) Insulin Aspart, Recombinant 100 u/ml 10 ml vial SC SCH ×4 (08:20→21:13)
[2018-02-22] MEDS: Enoxaparin 30 mg Syringe SC SCH ×2 (09:34→21:46)
[2018-02-22] MEDS: Cilostazol 50 mg Tab UD PO SCH ×2 (09:34→17:12)
[2018-02-22] MEDS: Ciprofloxacin 400mg/200ml D5W 400 MG/200 ML BAG IVPB SCH (09:35)
[2018-02-22 11:49] VITALS: O2SAT 99
[2018-02-22 14:00] LABS: BASO # 0.1 K/uL (0.0-0.2); BASO % 0.7 % (0.0-2.0); EOS # 0.3 K/uL (0.0-0.7); EOS % 3.3 % (0.0-4.0); HEMOGLOBIN 10.9 g/dL (11.0-16.0); LYMPH # 1.1 K/uL (1.0-4.3); LYMPH % 12.4 % (20.0-40.0); MEAN CORPUSCULAR HEMOGLOBIN 29.5 pg (27.0-31.0); MEAN CORPUSCULAR HGB CONC 33.2 g/dL (33.0-37.0); MEAN PLATELET VOLUME 8.3 fL (7.2-11.7); MONO # 0.9 K/uL (0.0-0.8); MONO % 9.6 % (0.0-10.0); NEUT # 6.7 K/uL (1.8-7.0); NRBC % 0.1 % (0.0-2.0); RBC 3.71 Mil/uL (3.80-5.20); RED CELL DISTRIBUTION WIDTH 15.6 % (11.5-14.5); WHITE BLOOD COUNT 9.1 K/uL (4.8-10.8)
[2018-02-22 14:14] LABS: ALBUMIN 3.8 g/dL (3.5-5.0); ALT/SGPT 24 U/L (9-52); AST/SGOT 69 U/L (14-36); BLOOD UREA NITROGEN 3 mg/dL (7-17); CALCIUM 9.7 mg/dl (8.6-10.4); GFR AFRICAN-AMERICAN > 60; GFR NON-AFRICAN AMERICAN > 60
[2018-02-22] MEDS ORDERED: Oxycodone/Acetaminophen 5/325 mg Tab PO PRN (15:01)
[2018-02-22 15:59] VITALS: BP 127/51; PULSE 99; TEMP 97.7
--- NOTE | 2018-02-22 17:15 | CP.PCM.PN ---
Subjective - Date & Time of Evaluation Date of Evaluation: 02/22/18 Time of Evaluation: 11:00 - Subjective Subjective: Alert, awake, no acute abdominal pain or distress. Tolerating liquid diet. Objective - Vital Signs/Intake and Output Vital Signs (last 24 hours): Temp Pulse Resp BP Pulse Ox 97.7 F 99 H 20 127/51 L 99 02/22/18 15:58 02/22/18 15:58 02/22/18 15:58 02/22/18 15:58 02/22/18 15:58 Intake and Output: 02/22/18 02/22/18 06:59 18:59 Intake Total 1120 700 Balance 1120 700 - Medications Medications: Current Medications Amlodipine Besylate (Norvasc) 5 mg PO DAILY [facility] Last Admin: 02/22/18 09:34 Dose: 5 mg Cilostazol (Pletal) 50 mg PO BID [facility] Last Admin: 02/22/18 09:34 Dose: 50 mg Clopidogrel Bisulfate (Plavix) 75 mg PO DAILY [facility] Last Admin: 02/22/18 09:34 Dose: 75 mg Enoxaparin Sodium (Lovenox) 30 mg SC Q12 [facility] Last Admin: 02/22/18 09:34 Dose: 30 mg Metronidazole (Flagyl) 500 mg in 100 mls @ 100 mls/hr IVPB Q8H [facility] PRN Reason: Protocol Last Admin: 02/22/18 06:17 Dose: 100 mls/hr Ciprofloxacin (Cipro 400mg/200ml Dsw) 400 mg in 200 mls @ 133 mls/hr IVPB Q12H [facility] PRN Reason: Protocol Last Admin: 02/22/18 09:35 Dose: 133 mls/hr Insulin Aspart (Novolog) 0 unit SC ACHS [facility] PRN Reason: Protocol Last Admin: 02/22/18 11:54 Dose: 1 unit Losartan Potassium (Cozaar) 25 mg PO DAILY [facility] Last Admin: 02/22/18 09:34 Dose: 25 mg Ondansetron HCl (Zofran Inj) 4 mg IVP Q8 PRN PRN Reason: Nausea/Vomiting Last Admin: 02/21/18 21:06 Dose: 4 mg Oxycodone/Acetaminophen (Percocet 5/325 Mg Tab) 1 tab PO Q6H [facility] PRN Reason: Pain, severe (8-10) Stop: 02/25/18 15:02 Pantoprazole Sodium (Protonix Inj) 40 mg IVP DAILY [facility] Last Admin: 02/22/18 09:34 Dose: 40 mg - Labs Labs: 02/22/18 13:40 02/22/18 13:40 Assessment and Plan - Assessment and Plan (Free Text) Assessment: Patient admitted with diverticulitis, seen and examined. Alert and orientedx3, still with some pain in her abdomen on liquid diet. Discussed with DR Ledesma, plan to discharge to TCU when bed available for 7 days of iv cipro and flagyl. Cleared by GI. Advised ti advance diet slowly.
--- NOTE | 2018-02-22 18:37 | CP.PCM.PN ---
Subjective - Date & Time of Evaluation Date of Evaluation: 02/22/18 Time of Evaluation: 18:37 - Subjective Subjective: CHIEF COMPLAINTS TODAY : AFEBRILE STATES lower abdominal pain SLOWLY IMPROVING states had a bm TOLERATING CLEAR LIQUIDS ROS. HEENT : N. Resp : No cough, wheezing ,pleuritic CP ,or hemoptysis Cardio : No anginal CP, PND, orthopnea, palpitation GI : +VE LOWER ABDOMINAL PAIN, NO n/v ,diarrhea or GI bleeding . MANAGER CT : No headache, vertigo, focal deficit. Musculoskel : No joint swelling , Derm : No rash Psych : Normal affect. Ext : No swelling ,calf pain PE. Pt. is alert awake in no distress. V.S As noted in the chart Head ,ear nose,throat and eyes : Normal. Neck : Supple with normal carotids. Lungs: Clear air entry. Heart : S1 & S2 normal with S4. No murmur. Abd : SOFT, MILD TENDERNESS LOWER ABDOMEN WITH normal bowel sounds. Neuro : Moves all ext. with no localized deficit. Ext : No edema with intact pulses.Non tender calves Derm : No rashes or decubitus ulcer. LABS/RADIOLOGY: wbc IMPROVING 9.0 H/H STABLE U/A -VE Objective - Vital Signs/Intake and Output Vital Signs (last 24 hours): Temp Pulse Resp BP Pulse Ox 97.7 F 99 H 20 127/51 L 99 02/22/18 15:58 02/22/18 15:58 02/22/18 15:58 02/22/18 15:58 02/22/18 15:58 Intake and Output: 02/22/18 02/22/18 06:59 18:59 Intake Total 1120 700 Balance 1120 700 - Medications Medications: Current Medications Amlodipine Besylate (Norvasc) 5 mg PO DAILY [facility] Last Admin: 02/22/18 09:34 Dose: 5 mg Cilostazol (Pletal) 50 mg PO BID [facility] Last Admin: 02/22/18 17:12 Dose: 50 mg Clopidogrel Bisulfate (Plavix) 75 mg PO DAILY [facility] Last Admin: 02/22/18 09:34 Dose: 75 mg Enoxaparin Sodium (Lovenox) 30 mg SC Q12 [facility] Last Admin: 02/22/18 09:34 Dose: 30 mg Metronidazole (Flagyl) 500 mg in 100 mls @ 100 mls/hr IVPB Q8H [facility] PRN Reason: Protocol Last Admin: 02/22/18 06:17 Dose: 100 mls/hr Ciprofloxacin (Cipro 400mg/200ml Dsw) 400 mg in 200 mls @ 133 mls/hr IVPB Q12H [facility] PRN Reason: Protocol Last Admin: 02/22/18 09:35 Dose: 133 mls/hr Insulin Aspart (Novolog) 0 unit SC ACHS [facility] PRN Reason: Protocol Last Admin: 02/22/18 17:11 Dose: 4 unit Losartan Potassium (Cozaar) 25 mg PO DAILY [facility] Last Admin: 02/22/18 09:34 Dose: 25 mg Ondansetron HCl (Zofran Inj) 4 mg IVP Q8 PRN PRN Reason: Nausea/Vomiting Last Admin: 02/21/18 21:06 Dose: 4 mg Oxycodone/Acetaminophen (Percocet 5/325 Mg Tab) 1 tab PO Q6H PRN PRN Reason: Pain, severe (8-10) Stop: 02/25/18 15:02 Last Admin: 02/22/18 17:14 Dose: 1 tab Pantoprazole Sodium (Protonix Inj) 40 mg IVP DAILY [facility] Last Admin: 02/22/18 09:34 Dose: 40 mg - Labs Labs: 02/22/18 13:40 02/22/18 13:40 Assessment and Plan (1) Abdominal pain Assessment & Plan: IMPROVING. TOLERATING CLEAR LIQUIDS. PER GI ADVANCE DIET SLOWLY. Status: Acute (2) Diverticulitis Assessment & Plan: CONTINUE IV CIPRO 400MG IV [id number] X 7DAYS. CONTINUE IV FLAGYL 500MG IV Q8HRLY X 7DAYS. PT FOR [facility] Status: Acute (3) Anemia Status: Acute (4) Constipation Status: Acute (5) PVD (peripheral vascular disease) Status: Acute (6) Status post femorofemoral bypass surgery Status: Acute (7) Diabetes mellitus Status: Chronic (8) Hypertension Status: Chronic
--- NOTE | 2018-02-22 23:58 | PN ---
DATE: 02/22/2018 SUBJECTIVE: The patient was seen today, 02/22/2018. She still has some abdominal pain, which is less in intensity. Diet was advanced yesterday to full-liquid diet. PHYSICAL EXAMINATION: VITAL SIGNS: Blood pressure 140/80, temperature 98.2, respiratory rate 18, and pulse 72. HEENT: Pupils equal and reactive to light. Normal-appearing mucosa of the conjunctivae, oropharynx, and nasal membrane mucosa. NECK: Supple. No JVD. No carotid bruit. No lymph node. No thyromegaly. CHEST AND LUNGS: Bilateral symmetrical expansion. Good air exchange. No rales, no rhonchi. CARDIOVASCULAR SYSTEM: PMI not localized. S1, S2. No additional sounds. ABDOMEN: Normoactive bowel sounds. No organomegaly. No masses. The patient has localized tenderness with no rebound tenderness or rigidity. EXTREMITIES: No cyanosis, no clubbing, no edema. 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 No neurological deficit could be appreciated. ASSESSMENT: Colitis, type 2 diabetes mellitus, hypertension, peripheral vascular disease. PLAN: Continue current IV antibiotics, Cipro, and Flagyl, and plan to advance diet gradually and start the patient on physical therapy and evaluate for subacute rehabilitation if possible. Kd Ledesma MD
== END 2018-02-22 22:31 | DRG 392 ==
LOC: C.ER 09:54 → C.9E 15:00 → C.3T 15:34
PROVIDERS: ADMIT Internal Medicine; ATTEND Internal Medicine
DX: K57.32 Diverticulitis of large intestine without perforation or abscess without bleeding (principal); K52.9 Noninfective gastroenteritis and colitis, unspecified; E11.51 Type 2 diabetes mellitus with diabetic peripheral angiopathy without gangrene; I10 Essential (primary) hypertension; K59.00 Constipation, unspecified; J44.9 Chronic obstructive pulmonary disease, unspecified; M81.0 Age-related osteoporosis without current pathological fracture; M19.042 Primary osteoarthritis, left hand; M19.041 Primary osteoarthritis, right hand; D64.9 Anemia, unspecified; E78.00 Pure hypercholesterolemia, unspecified; K21.9 Gastro-esophageal reflux disease without esophagitis; F17.210 Nicotine dependence, cigarettes, uncomplicated; Z90.710 Acquired absence of both cervix and uterus; Z87.01 Personal history of pneumonia (recurrent); Z98.51 Tubal ligation status; Z79.4 Long term (current) use of insulin; Z90.49 Acquired absence of other specified parts of digestive tract; Z79.82 Long term (current) use of aspirin; Z79.02 Long term (current) use of antithrombotics/antiplatelets; Z88.0 Allergy status to penicillin; Z88.2 Allergy status to sulfonamides; Z91.018 Allergy to other foods

== ENCOUNTER 2018-03-09 11:02 | Inpatient (IN) | payer MEDICARE ==
[2018-03-09 11:03] VITALS: BMI 22.5
[2018-03-09] MEDS ORDERED: Morphine 4 MG/ML VIAL IV STA ×2 (12:04→14:29)
[2018-03-09] MEDS ORDERED: Morphine 4 MG/ML VIAL ONE ×2 (13:00→14:45)
[2018-03-09 13:02] LABS: BASO # 0.1 K/uL (0.0-0.2); BASO % 0.7 % (0.0-2.0); EOS # 0.1 K/uL (0.0-0.7); EOS % 0.5 % (0.0-4.0); HEMOGLOBIN 10.1 g/dL (11.0-16.0); LYMPH # 1.5 K/uL (1.0-4.3); LYMPH % 12.4 % (20.0-40.0); MEAN CELL VOLUME 88.4 fL (81.0-99.0); MEAN CORPUSCULAR HEMOGLOBIN 30.2 pg (27.0-31.0); MEAN CORPUSCULAR HGB CONC 34.2 g/dL (33.0-37.0); MEAN PLATELET VOLUME 8.1 fL (7.2-11.7); MONO # 1.1 K/uL (0.0-0.8); MONO % 8.8 % (0.0-10.0); NEUT # 9.6 K/uL (1.8-7.0); NEUT % 77.6 % (50.0-75.0); RBC 3.35 Mil/uL (3.80-5.20); RED CELL DISTRIBUTION WIDTH 15.9 % (11.5-14.5); WHITE BLOOD COUNT 12.3 K/uL (4.8-10.8)
[2018-03-09 13:07] LABS: SQUAMOUS EPITHIAL 1 /hpf (0-5); URINE BACTERIA RARE (<OCC); URINE BILIRUBIN NEGATIVE (NEGATIVE); URINE BLOOD NEGATIVE (NEGATIVE); URINE CLARITY Clear (Clear); URINE COLOR Yellow (YELLOW); URINE GLUCOSE (UA) NORMAL (Normal); URINE LEUKOCYTE ESTERASE NEG Leu/uL (Negative); URINE PROTEIN 2+ mg/dL (NEGATIVE); URINE UROBILINOGEN NORMAL mg/dL (0.2-1.0)
[2018-03-09 13:27] LABS: ALT/SGPT < 6 U/L (9-52); AST/SGOT 26 U/L (14-36); BLOOD UREA NITROGEN 14 mg/dL (7-17); CALCIUM 10.4 mg/dl (8.6-10.4); GFR AFRICAN-AMERICAN > 60; GFR NON-AFRICAN AMERICAN > 60
--- NOTE | 2018-03-09 14:30 | C.PDOC ---
History Of Present Illness 73 y/o female presents to the ER complaining of lower back pain which has been present for the past 4 days. Patient states that she sustained the pain when she lifted a 40 lb case of water. Patient reports that she took Tylenol without relief. Denies having urinary/bowel incontinence and saddle anesthesia. Time Seen by Provider: 03/09/18 11:32 Chief Complaint (Nursing): Back Pain History Per: Patient History/Exam Limitations: no limitations Onset/Duration Of Symptoms: Days Current Symptoms Are (Timing): Still Present Severity: Moderate Past Medical History Reviewed: Historical Data, Nursing Documentation, Vital Signs Vital Signs: Last Vital Signs Temp 99 F 03/09/18 11:17 Pulse 94 H 03/09/18 14:38 Resp 15 03/09/18 14:38 BP 161/66 H 03/09/18 14:38 Pulse Ox 99 03/09/18 15:24 - Medical History PMH: Anxiety, Arthritis (hands), Asthma, Bronchitis, COPD, Diabetes, Diverticulitis, Fractures (RT.FOOT/CASTED NO OR), HTN, Hypercholesterolemia, Osteoporosis, Pneumonia Denies: HIV, Chronic Kidney Disease Surgical History: Endoscopy - [facility] Procedures ASSISTANCE WITH RESPIRATORY VENTILATION, 24-96 HRS (02/17/17) BYPASS L FEM ART TO R FEMOR A WITH SYNTH SUB, OPEN APPROACH (02/09/17) CLOSED ENDOSCOPIC BIOPSY OF LARGE INTESTINE (07/31/15) DILATION OF R FEM ART WITH INTRALUM DEV, PERC APPROACH (11/06/17) ENDOSCOPIC CONTROL OF GASTRIC OR DUODENAL BLEEDING (07/24/15) ESOPHAGOGASTRODUODENOSCOPY [EGD] W/CLOSED BIOPSY (04/22/13) EXERCISE TREATMENT OF MUSCULOSK WHOLE USING ASSIST EQUIPMENT (02/22/18) EXERCISE TRMT MUSCULOSK LOW BACK/LE W ASSIST EQUIP (03/09/17) GAIT TRAINING/AMBULAT TREATMENT USING ASSIST EQUIPMENT (11/11/17) GAIT TRAINING/FUNCTIONAL AMBULATION TREATMENT (02/17/17) HOME MANAGEMENT TREATMENT (02/17/17) HOME MANAGEMENT TREATMENT USING ASSIST EQUIPMENT (02/22/18) INTRODUCE OF OTH ANTI-INFECT INTO PERIPH VEIN, PERC APPROACH (02/22/18) THERAPEUTIC EXERCISE TREATMENT OF MUSCULOSK LOW BACK/LE (02/17/17) TRANSFUSE NONAUT RED BLOOD CELLS IN PERIPH VEIN, PERC (02/09/17) Family History: States: No Known Family Hx - Social History Hx Tobacco Use: Yes (Former.) Hx Alcohol Use: Yes Hx Substance Use: No - Immunization History Hx Tetanus Toxoid Vaccination: No Hx Influenza Vaccination: Yes Hx Pneumococcal Vaccination: Yes Review Of Systems Except As Marked, All Systems Reviewed And Found Negative. Musculoskeletal: Positive for: Back Pain (lower back pain) Physical Exam - Physical Exam Appears: Non-toxic, No Acute Distress Skin: Normal Color, Warm, Dry Head: Atraumatic, Normacephalic Eye(s): bilateral: Normal Inspection Nose: Normal Oral Mucosa: Moist Neck: Supple Chest: Symmetrical Cardiovascular: Rhythm Regular Respiratory: Normal Breath Sounds, No Rales, No Rhonchi, No Wheezing Gastrointestinal/Abdominal: Normal Exam, Soft, No Tenderness Back: No Vertebral Tenderness, Paraspinal Tenderness (tenderness to paralumbar region), Straight Leg Raising ((-) straight leg raising) Extremity: Normal ROM Pulses: Left Dorsalis Pedis: Normal (equal DP/PT pulses), Right Dorsalis Pedis: Normal (equal DP/PT pulses) Neurological/Psych: Oriented x3, Normal Speech ED Course And Treatment - Laboratory Results Result Diagrams: 03/09/18 12:58 03/09/18 12:58 O2 Sat by Pulse Oximetry: 99 (RA) Pulse Ox Interpretation: Normal - Other Rad X-Ray - Lumbar Spine X-Ray: Viewed By Me, Read By Radiologist Interpretation: PROCEDURE: Radiographs of the Lumbar Spine. HISTORY: back pain. COMPARISON: No prior. FINDINGS: BONES: Grade 1 anterolisthesis L4-5. DISC SPACES: Preservation of intervertebral disc spaces. OTHER FINDINGS: Calcified nonaneurysmal abdominal aorta. IMPRESSION: No acute findings related to/accounting for the clinical presentation. Grade 1 anterolisthesis L4-L5. Medical Decision Making Medical Decision Making: Assessment: Back Pain Plan: --Labs --UA --X-Ray - Lumbar Spine --Morphine IV Updates: Patient medicated with Morphine IV without improvement. Case discussed with patient's PMD, . Patient has been admitted to the medical surgical floor Disposition Discussed With : Kd Ledesma Doctor Will See Patient In The: Hospital Counseled Patient/Family Regarding: Studies Performed, Diagnosis - Disposition Disposition: HOSPITALIZED Disposition Time: 14:30 Condition: FAIR - Clinical Impression Clinical Impression: Low back pain - Scribe Statement The provider has reviewed the documentation as recorded by the Yareliibe Monica Teran Provider Attestation: All medical record entries made by the Scribe were at my direction and personally dictated by me. I have reviewed the chart and agree that the record accurately reflects my personal performance of the history, physical exam, medical decision making, and the department course for this patient. I have also personally directed, reviewed, and agree with the discharge instructions and disposition.
--- NOTE | 2018-03-09 14:58 | RAD ---
PROCEDURE: Radiographs of the Lumbar Spine. HISTORY: back pain COMPARISON: No prior. FINDINGS: BONES: Grade 1 anterolisthesis L4-5. DISC SPACES: Preservation of intervertebral disc spaces. OTHER FINDINGS: Calcified nonaneurysmal abdominal aorta. IMPRESSION: No acute findings related to/accounting for the clinical presentation. Grade 1 anterolisthesis L4-L5.
[2018-03-10] MEDS: Oxycodone/Acetaminophen 5/325 mg Tab PO PRN ×4 (00:42→22:14)
--- NOTE | 2018-03-10 06:03 | HP ---
HISTORY OF PRESENT ILLNESS: This is a 73-year-old -[place] female with history of multiple medical problems including peripheral vascular disease, hypertension, type 2 diabetes mellitus. Patient presented to emergency room after severe back pain with inability to ambulate that started after patient was lifting up a case of water bottles in her kitchen. The patient was evaluated in the emergency room and she was found to have severe lower back pain that radiates to right lower extremity. The patient was evaluated and she had x-ray done in emergency room that showed degenerative spine disease, but there is no vertebral fracture. X-ray showed grade 1 anterolisthesis L4-L5. Patient was admitted for further management. ALLERGIES: POSITIVE ALLERGY FOR PENICILLIN, SULFONAMIDES, AND TOMATO. SOCIAL HISTORY: Smoker. No EtOH or substance abuse. FAMILY HISTORY: Noncontributory. MEDICATIONS: As per MAR. PAST MEDICAL HISTORY: Peripheral vascular disease, hypertension, type 2 diabetes mellitus, hypercholesterolemia, COPD. PHYSICAL EXAMINATION: GENERAL: Patient is in bed, in mild distress because of the pain. VITAL SIGNS: Blood pressure 130/63, temperature 99.5, respiratory rate 20, and pulse 99. HEENT: Pupils equal, reactive to light. Normal-appearing mucosa of the conjunctivae, oropharynx, and nasal membrane mucosa. NECK: Supple. No JVD. No carotid bruits. No lymph node. No thyromegaly. CHEST AND LUNGS: Bilateral symmetrical expansion. Good air exchange. No rales, no rhonchi. CARDIOVASCULAR SYSTEM: PMI not localized. S1, S2. No additional sounds. ABDOMEN: Normoactive bowel sounds. No tenderness. No organomegaly. No masses. EXTREMITIES: No cyanosis, no clubbing, no edema. FABRIC SOURCER: Alert, awake, and oriented x2. No neurological deficits could be appreciated. ASSESSMENT: 1. Intractable back pain with difficulty ambulation. 2. Hypertension. 3. Type 2 diabetes mellitus. 4. Peripheral vascular disease. PLAN: Continue resume patient's home medications. We will give the patient pain management. Check MRI of the lumbosacral spine. Kd Ledesma MD
[2018-03-10] MEDS: (Novolog) Insulin Aspart, Recombinant 100 u/ml 10 ml vial SC SCH ×4 (08:11→22:11)
[2018-03-10] MEDS: Multivitamin With Minerals Tab PO SCH (08:14)
[2018-03-10] MEDS: Enoxaparin 40 mg Syringe SC SCH (09:39)
[2018-03-10] MEDS: Bisoprolol-HCTZ 5-6.25 mg Tab PO SCH ×2 (09:47→09:49)
[2018-03-10] MEDS: Cilostazol 50 mg Tab UD PO SCH ×2 (09:47→18:47)
[2018-03-10] MEDS ORDERED: MethylPREDNISolone Depo 40 mg/ml Inj ONE (12:12)
[2018-03-10] MEDS ORDERED: Lidocaine 2% MPF (5 ml) Inj ONE (12:12)
[2018-03-11] MEDS: (Novolog) Insulin Aspart, Recombinant 100 u/ml 10 ml vial SC SCH ×4 (07:59→21:53)
[2018-03-11] MEDS: Multivitamin With Minerals Tab PO SCH (08:22)
[2018-03-11] MEDS: Enoxaparin 40 mg Syringe SC SCH (09:21)
[2018-03-11] MEDS: Cilostazol 50 mg Tab UD PO SCH ×2 (09:22→18:53)
[2018-03-11] MEDS: Bisoprolol-HCTZ 5-6.25 mg Tab PO SCH (09:23)
[2018-03-11] MEDS ORDERED: Gadodiamide 287 mg/ml 20 ml IV ONE (11:14)
--- NOTE | 2018-03-11 13:10 | MRI ---
PROCEDURE: MRI of the lumbar spine dated 03/11/2018 HISTORY: Intractable back pain COMPARISON: Comparison made with prior CTA scan of the abdomen and pelvis 02/19/2018 TECHNIQUE: Multiecho multiplanar sequences were performed through the lumbar spine with and without the use of intravenous contrast. Approximately 10 cc Omniscan injected for this examination FINDINGS: The current study reveals no acute compression fractures nor retropulsed fragments. Vertebral bodies exhibit normal stature. Re- demonstrated is slight anterior subluxation L4 over L5 felt be secondary to hypertrophic facets as there is no evidence of spondylolysis. Vertebral bodies and facets otherwise normally normal alignment. Facets normally aligned. No evidence of abnormal enhancement seen within the disc spaces or endplates to suggest discitis osteomyelitis. No evidence of abnormal enhancement seen within or along the visualized portions of the lower thoracic spinal cord/conus or descending nerve roots of the cauda equina. The conus terminates at approximately the upper L2 level. T12-L1: Space height maintained. Minor age related disc desiccation. No evidence of significant canal stenosis or neural foraminal narrowing. L1-2: Disc space height maintained. Minor age related disc desiccation. No evidence of significant canal stenosis or neural foraminal narrowing. L2-3: Adequate disc space height. Mild age related disc desiccation No disc herniation or significant disc bulge. Facet joints are mildly hypertrophic however no significant canal nor foraminal stenosis. L3-4: Mild age related disc desiccation Minor posterior disc space narrowing. Minimal broad-based bulge of the posterior annulus is present which results in flattening of the ventral surface of thecal sac. The facets are mildly hypertrophic. Central canal and exit foramina adequate. L4-5: There is mild age related disc desiccation, disc space narrowing and slight uncovering of the posterior superior surface of the disc due to the aforementioned anterior subluxation. . There is also an associated minor broad-based disc bulging extends into the proximal inferior margins of both exit foramina. As mentioned above, the facets are quite hypertrophic at this level. With mild flattening of the ventral surface of the thecal sac. The central canal measured at midline appears adequate though the facet joints mildly compress posterolateral borders of thecal sac. The exit foramina are marginal to mildly narrowed. L5-S1: There is adequate disc height and hydration. Small broad-based bulge of the posterior annulus extends slightly into the proximal inferior margins of both exit foramina. The disc reaches but does not significantly and only minimally flattens the ventral surface of the thecal sac. The overall central canal is adequate at this level. The exit foramina are marginal to adequate. OTHER FINDINGS: Elliptical shaped note made of a small approximately 2.5 x 1.2 x 1 point 2 cm discrete nonenhancing elliptical shaped focal area of fat within the mid paraspinal soft tissues at the L1 level that is most consistent with a small lipoma. IMPRESSION: Mild multilevel degenerative spondylosis most notably affecting the L4-L5 level as detailed above. No enhancing lesions. Small elliptical shaped lipoma within the mid paraspinal soft tissues at the L1 level.
--- NOTE | 2018-03-11 17:05 | PN ---
DATE: SUBJECTIVE: The patient was seen on 03/10/2018. She was still having severe pain on the lower back with difficulty in ambulation. PHYSICAL EXAMINATION: VITAL SIGNS: Blood pressure 115/62, temperature 99, respiratory rate 20, and pulse 81. HEENT: Pupils equal, and reactive to light. Normal-appearing mucosa of the conjunctivae, oropharynx, and nasal membrane mucosa. NECK: Supple. No JVD. No carotid bruit. No lymph node. No thyromegaly. CHEST/LUNGS: Bilateral symmetrical expansion. Good air exchange. No rales, no rhonchi. CARDIOVASCULAR SYSTEM: PMI not localized. S1, S2. No additional sounds. ABDOMEN: Normoactive bowel sounds. No tenderness. No organomegaly. No masses. EXTREMITIES: No cyanosis, no clubbing, no edema. ELECTRICIAN LOCOMOTIVE: Alert, awake, and oriented x2 and the patient has tenderness in the lower back and complete neuro exam was not done as the patient is uncomfortable because of pain. ASSESSMENT: 1. Severe muscle spasm and intractable back pain with difficulty ambulation. 2. History of hypertension, type 2 diabetes mellitus, peripheral vascular disease. PLAN: We will do MRI of the lumbosacral spine and continue pain management and physical therapy. We will start physical therapy after the MRI. Kd Ledesma MD
[2018-03-11] MEDS: Oxycodone/Acetaminophen 5/325 mg Tab PO PRN (20:09)
--- NOTE | 2018-03-12 02:46 | PN ---
DATE: 03/11/2018 SUBJECTIVE: The patient is seen today, 03/11/2018. She is not in any cardiopulmonary distress. Pain is slightly less. The patient was started on physical therapy. OBJECTIVE: VITAL SIGNS: Blood pressure is 125/64, temperature 99.1, respiratory rate 20, pulse 88. HEENT: Pupils equal and reactive to light. Normal-appearing mucosa of the conjunctivae, oropharyngeal mucosa. NECK: Supple. No JVD. No carotid bruit. No lymph node. No thyromegaly. CHEST AND LUNGS: Bilateral symmetrical expansion. Good air exchange. No rales, no rhonchi. CARDIOVASCULAR SYSTEM: PMI not localized. S1, S2. No additional sounds. ABDOMEN: Normoactive bowel sounds. No tenderness. No organomegaly. No masses. EXTREMITIES: No cyanosis, no clubbing, no edema. BEARING MAKER: Alert, awake, oriented x2. No neurological deficit could be appreciated. ASSESSMENT: 1. Severe lower back pain that radiates to the right lower extremity which is intractable with difficulty ambulation. 2. Hypertension. 3. Type 2 diabetes mellitus. 4. Peripheral vascular disease, status post revascularization of left lower extremity. PLAN: Continue current medications and pain management and physical therapy, and we will follow the recommendations. Kd Ledesma MD
[2018-03-12] MEDS: (Novolog) Insulin Aspart, Recombinant 100 u/ml 10 ml vial SC SCH ×4 (07:52→22:16)
[2018-03-12] MEDS: Multivitamin With Minerals Tab PO SCH (08:27)
[2018-03-12] MEDS: Oxycodone/Acetaminophen 5/325 mg Tab PO PRN (08:56)
[2018-03-12] MEDS: Enoxaparin 40 mg Syringe SC SCH (09:00)
[2018-03-12] MEDS: Bisoprolol-HCTZ 5-6.25 mg Tab PO SCH (09:03)
[2018-03-12] MEDS: Cilostazol 50 mg Tab UD PO SCH ×2 (09:03→18:55)
--- NOTE | 2018-03-12 12:31 | CP.PCM.PN ---
Subjective - Date & Time of Evaluation Date of Evaluation: 03/12/18 Time of Evaluation: 12:29 - Subjective Subjective: DISCUSSED D/C PLAN WITH DR. BARTH. PT NOW REFUSING TO GO TO [facility] ORIGINALLY PLANNED. PLAN NOW IS TO D/C HOME TOMORROW WITH HOME SERVICES. CM MADE AWARE AND WILL ARRANGE HOME CARE PHY THER. NO FURTHER ORDERS. Objective - Vital Signs/Intake and Output Vital Signs (last 24 hours): Temp Pulse Resp BP Pulse Ox 98.6 F 86 20 129/59 L 99 03/12/18 08:00 03/12/18 08:00 03/12/18 08:00 03/12/18 08:00 03/12/18 08:00 Intake and Output: 03/12/18 03/12/18 06:59 18:59 Intake Total 500 Balance 500 - Medications Medications: Current Medications Acetaminophen (Tylenol 325mg Tab) 650 mg PO Q4H PRN PRN Reason: Fever >100.4 F Last Admin: 03/11/18 14:54 Dose: 650 mg Alprazolam (Xanax) 0.25 mg PO DAILY PRN PRN Reason: Anxiety Stop: 03/17/18 10:01 Last Admin: 03/12/18 08:57 Dose: 0.25 mg Amlodipine Besylate (Norvasc) 5 mg PO DAILY [facility] Last Admin: 03/12/18 09:00 Dose: 5 mg Aspirin (Ecotrin) 81 mg PO DAILY [facility] Last Admin: 03/12/18 09:00 Dose: 81 mg Bisoprolol Fumarate/HCTZ (Ziac 5-6.25 Mg) 1 tab PO DAILY [facility] Last Admin: 03/12/18 09:03 Dose: 1 tab Cilostazol (Pletal) 50 mg PO BID [facility] Last Admin: 03/12/18 09:03 Dose: 50 mg Clopidogrel Bisulfate (Plavix) 75 mg PO DAILY [facility] Last Admin: 03/12/18 09:00 Dose: 75 mg Enoxaparin Sodium (Lovenox) 40 mg SC DAILY [facility] Last Admin: 03/12/18 09:00 Dose: 40 mg Glipizide (Glucotrol) 10 mg PO BIDAC [facility] Last Admin: 03/12/18 08:27 Dose: 10 mg Insulin Aspart (Novolog) 0 unit SC [facility] PRN Reason: Protocol Last Admin: 03/12/18 12:21 Dose: Not Given Losartan Potassium (Cozaar) 25 mg PO DAILY [facility] Last Admin: 03/12/18 09:00 Dose: 25 mg Metformin HCl (Glucophage) 500 mg PO BIDPC [facility] Last Admin: 03/12/18 08:27 Dose: 500 mg Multivitamins/Minerals (Therapeutic-M Tab) 1 tab PO 0800 [facility] Last Admin: 03/12/18 08:27 Dose: 1 tab Oxycodone/Acetaminophen (Percocet 5/325 Mg Tab) 1 tab PO Q4H PRN PRN Reason: Pain, moderate (4-7) Stop: 03/12/18 22:37 Last Admin: 03/12/18 08:56 Dose: 1 tab Rosuvastatin Calcium (Crestor) 5 mg PO HS [facility] Last Admin: 03/11/18 21:52 Dose: 5 mg - Labs Labs: 03/09/18 12:58 03/09/18 12:58
[2018-03-13 00:40] VITALS: RESP 20
[2018-03-13 08:34] LABS: ALB/GLOB RATIO 0.9 (1.0-2.1); ALBUMIN 3.8 g/dL (3.5-5.0); ALT/SGPT 16 U/L (9-52); AST/SGOT 26 U/L (14-36); BLOOD UREA NITROGEN 12 mg/dL (7-17); CALCIUM 10.4 mg/dl (8.6-10.4); GFR AFRICAN-AMERICAN > 60; GFR NON-AFRICAN AMERICAN > 60
[2018-03-13] MEDS: (Novolog) Insulin Aspart, Recombinant 100 u/ml 10 ml vial SC SCH ×4 (08:35→21:52)
[2018-03-13 08:43] LABS: MEAN PLATELET VOLUME 8.3 fL (7.2-11.7)
[2018-03-13 08:45] LABS: BASO % 0.6 % (0.0-2.0); EOS # 0.2 K/uL (0.0-0.7); EOS % 2.8 % (0.0-4.0); HEMOGLOBIN 11.4 g/dL (11.0-16.0); LYMPH # 1.3 K/uL (1.0-4.3); LYMPH % 15.6 % (20.0-40.0); MEAN CELL VOLUME 87.8 fL (81.0-99.0); MEAN CORPUSCULAR HEMOGLOBIN 30.1 pg (27.0-31.0); MEAN CORPUSCULAR HGB CONC 34.3 g/dL (33.0-37.0); MONO # 1.1 K/uL (0.0-0.8); MONO % 13.2 % (0.0-10.0); NEUT # 5.8 K/uL (1.8-7.0); NEUT % 67.8 % (50.0-75.0); NRBC % 0.2 % (0.0-2.0); RBC 3.77 Mil/uL (3.80-5.20); RED CELL DISTRIBUTION WIDTH 15.2 % (11.5-14.5); WHITE BLOOD COUNT 8.6 K/uL (4.8-10.8)
[2018-03-13] MEDS: Enoxaparin 40 mg Syringe SC SCH (09:54)
[2018-03-13] MEDS: Bisoprolol-HCTZ 5-6.25 mg Tab PO SCH (09:54)
[2018-03-13] MEDS: Cilostazol 50 mg Tab UD PO SCH ×2 (09:54→18:26)
[2018-03-13] MEDS: Multivitamin With Minerals Tab PO SCH (10:19)
[2018-03-14 07:54] VITALS: BP 137/61; PULSE 78; TEMP 98.3; O2SAT 100
[2018-03-14] MEDS: Multivitamin With Minerals Tab PO SCH (09:02)
[2018-03-14] MEDS: Cilostazol 50 mg Tab UD PO SCH (09:03)
[2018-03-14] MEDS: Enoxaparin 40 mg Syringe SC SCH (09:03)
[2018-03-14] MEDS: Bisoprolol-HCTZ 5-6.25 mg Tab PO SCH (09:03)
[2018-03-14] MEDS: (Novolog) Insulin Aspart, Recombinant 100 u/ml 10 ml vial SC SCH ×2 (09:04→12:49)
[2018-03-14] MEDS ORDERED: Pneumococcal 23-Valent Vaccine IM ONE (10:00)
--- NOTE | 2018-03-14 20:20 | PN ---
DATE: 03/12/2018 SUBJECTIVE: The patient was seen on 03/12/2018. She was not in any cardiopulmonary distress, but she was still having back pain. PHYSICAL EXAMINATION: VITAL SIGNS: Blood pressure was 120/50, temperature 99.3, respiratory rate 18 and pulse 84. HEENT: Pupils equal, reactive to light. Normal-appearing mucosa of the conjunctivae, oropharynx and nasal membrane mucosa. NECK: Supple. No JVD. No carotid bruit. No lymph node. No thyromegaly. CHEST AND LUNGS: Bilateral symmetrical expansion. Good air exchange. No rales, no rhonchi. CARDIOVASCULAR SYSTEM: PMI not localized. S1, S2. No additional sounds. ABDOMEN: Normoactive bowel sounds. No tenderness. No organomegaly. No masses. EXTREMITIES: No cyanosis, no clubbing, no edema. GEODETIC SURVEY DIRECTOR: Alert, awake, oriented x2. No neurological deficit could be appreciated. ASSESSMENT: 1. Severe low back pain after lifting up heavy objects which is intractable with difficulty ambulation and currently improving. 2. Peripheral vascular disease. 3. Hypertension. 4. Type 2 diabetes mellitus. PLAN: Continue current management including pain medications and physical therapy and if the patient feels better we will plan for discharge. The patient refused to go to subacute rehabilitation. Kd Ledesma MD
--- NOTE | 2018-03-15 10:01 | DS ---
REASON FOR ADMISSION: This is a 73-year-old female with history of multiple medical problems was admitted for severe intractable pain with difficulty ambulation. COURSE OF HOSPITALIZATION: The patient was started on medical treatment, pain medications, as well as physical therapy. The patient had also an MRI of the lumbosacral spine that showed degenerative spine disease. The patient's symptoms eventually improved and she is being discharged home to follow with her primary care physician, Dr. Ledesma. FINAL DIAGNOSES: 1. Severe low back pain with difficulty ambulation. 2. Degenerative spine disease. 3. Peripheral vascular disease. 4. Hypertension. 5. Type 2 diabetes mellitus. [facility] MD [facility] # [id number]
== END 2018-03-14 15:10 | disposition home or self-care (01) | DRG 552 ==
LOC: C.ER 11:02 → C.3T 14:29 → C.9E 14:29 → OBSVTOIN 03-11 15:37
PROVIDERS: ADMIT Internal Medicine; ATTEND Internal Medicine
DX: M54.5 Low back pain (principal); M62.830 Muscle spasm of back; M47.9 Spondylosis, unspecified; R26.2 Difficulty in walking, not elsewhere classified; X50.0XXA Overexertion from strenuous movement or load, initial encounter; E11.51 Type 2 diabetes mellitus with diabetic peripheral angiopathy without gangrene; E78.00 Pure hypercholesterolemia, unspecified; F17.210 Nicotine dependence, cigarettes, uncomplicated; I10 Essential (primary) hypertension; J44.9 Chronic obstructive pulmonary disease, unspecified; M19.041 Primary osteoarthritis, right hand; M19.042 Primary osteoarthritis, left hand; Z88.0 Allergy status to penicillin; Z79.4 Long term (current) use of insulin

== ENCOUNTER 2018-08-06 14:13 | Inpatient (IN) | payer MEDICARE ==
[2018-08-06 14:14] VITALS: BMI 22.5
[2018-08-06] MEDS ORDERED: Azithromycin 500 MG in Sodium Chloride 0.9% 250 ML IV STA (15:39)
[2018-08-06] MEDS ORDERED: cefTRIAXone IV 1 gm in Dextros 50 ML IV ONE (15:39)
[2018-08-06] MEDS ORDERED: Albuterol-Ipratrop 3 mg / 0.5 (3 ml) UD INH STA (15:39)
[2018-08-06] MEDS ORDERED: Albuterol-Ipratrop 3 mg / 0.5 (3 ml) UD ONE (16:13)
--- NOTE | 2018-08-06 16:32 | C.PDOC ---
History Of Present Illness 73 y/o female is sent to ED by Dr. Ledesma for COPD exacerbation. Pt complains of cough, shortness of breath, and chronic lower back pain. Denies fever, or other complaints. Time Seen by Provider: 08/06/18 15:35 Chief Complaint (Nursing): Shortness Of Breath History Per: Patient History/Exam Limitations: no limitations Past Medical History Reviewed: Historical Data, Nursing Documentation, Vital Signs Vital Signs: Last Vital Signs Temp 98.2 F 08/06/18 14:19 Pulse 86 08/06/18 14:19 Resp 17 08/06/18 15:00 BP 121/51 L 08/06/18 14:19 Pulse Ox 99 08/06/18 15:00 - Medical History PMH: Anxiety, Arthritis (hands), Asthma, Bronchitis, COPD, Diabetes, Diverticulitis, Fractures (RT.FOOT/CASTED NO OR), HTN, Hypercholesterolemia, Osteoporosis, Pneumonia Denies: HIV, Chronic Kidney Disease Surgical History: Endoscopy - [facility] Procedures ASSISTANCE WITH RESPIRATORY VENTILATION, 24-96 HRS (02/17/17) BYPASS L FEM ART TO R FEMOR A WITH SYNTH SUB, OPEN APPROACH (02/09/17) CLOSED ENDOSCOPIC BIOPSY OF LARGE INTESTINE (07/31/15) DILATION OF R FEM ART WITH INTRALUM DEV, PERC APPROACH (11/06/17) ENDOSCOPIC CONTROL OF GASTRIC OR DUODENAL BLEEDING (07/24/15) ESOPHAGOGASTRODUODENOSCOPY [EGD] W/CLOSED BIOPSY (04/22/13) EXERCISE TREATMENT OF MUSCULOSK WHOLE USING ASSIST EQUIPMENT (02/22/18) EXERCISE TRMT MUSCULOSK LOW BACK/LE W ASSIST EQUIP (03/09/17) GAIT TRAINING/AMBULAT TREATMENT USING ASSIST EQUIPMENT (11/11/17) GAIT TRAINING/FUNCTIONAL AMBULATION TREATMENT (02/17/17) HOME MANAGEMENT TREATMENT (02/17/17) HOME MANAGEMENT TREATMENT USING ASSIST EQUIPMENT (02/22/18) INTRODUCE OF OTH ANTI-INFECT INTO PERIPH VEIN, PERC APPROACH (02/22/18) THERAPEUTIC EXERCISE TREATMENT OF MUSCULOSK LOW BACK/LE (02/17/17) TRANSFUSE NONAUT RED BLOOD CELLS IN PERIPH VEIN, PERC (02/09/17) Family History: States: Unknown Family Hx - Social History Hx Tobacco Use: Yes (Former.) Hx Alcohol Use: No Hx Substance Use: No - Immunization History Hx Tetanus Toxoid Vaccination: No Hx Influenza Vaccination: Yes (2018) Hx Pneumococcal Vaccination: Yes Review Of Systems Except As Marked, All Systems Reviewed And Found Negative. Constitutional: Negative for: Fever, Chills Cardiovascular: Negative for: Chest Pain Respiratory: Positive for: Cough, Shortness of Breath Musculoskeletal: Positive for: Back Pain Physical Exam - Physical Exam Appears: Non-toxic, No Acute Distress, Other (elderly black female) Skin: Normal Color, Warm, Dry Head: Atraumatic, Normacephalic Eye(s): bilateral: Normal Inspection Oral Mucosa: Moist Cardiovascular: Murmur (systolic) Respiratory: No Accessory Muscle Use, No Rales, Rhonchi (scattered), Wheezing (scattered) Gastrointestinal/Abdominal: Soft, No Tenderness Extremity: Normal ROM, No Pedal Edema Pulses: Right Radial: Normal Neurological/Psych: Oriented x3, Normal Speech ED Course And Treatment - Laboratory Results Result Diagrams: 08/06/18 16:32 08/06/18 16:32 Lab Interpretation: Normal (bnp/trop) ECG: Interpreted By Me ECG Rhythm: Sinus Rhythm ECG Interpretation: Normal Rate From EC O2 Sat by Pulse Oximetry: 99 Pulse Ox Interpretation: Normal - Radiology CXR: Interpreted by Ar CXR Interpretation: Yes: No Acute Disease, Heart Size, Other (+ hyperinflated) Reevaluation Time: 17:40 Reassessment Condition: Improved - Physician Consult Information Outcome Of Conversation: 1545, and 1745 d/w starla Lara to admit Medical Decision Making Medical Decision Making: acute on chronic copd, still smoking normal w/u. Chronic LBP/sciatica tramadol/toradol in ED Disposition Doctor Will See Patient In The: Hospital Counseled Patient/Family Regarding: Studies Performed, Diagnosis - Disposition Disposition: HOSPITALIZED Disposition Time: 17:42 Condition: GOOD - Clinical Impression Clinical Impression: COPD (chronic obstructive pulmonary disease), Sciatica - Scribe Statement The provider has reviewed the documentation as recorded by the Scribe kp All medical record entries made by the Scribe were at my direction and personally dictated by me. I have reviewed the chart and agree that the record accurately reflects my personal performance of the history, physical exam, medical decision making, and the department course for this patient. I have also personally directed, reviewed, and agree with the discharge instructions and disposition.
[2018-08-06 16:47] LABS: BASO % 0.4 % (0.0-2.0); EOS # 0.2 K/uL (0.0-0.7); EOS % 1.7 % (0.0-4.0); HEMOGLOBIN 9.7 g/dL (11.0-16.0); LYMPH # 1.8 K/uL (1.0-4.3); LYMPH % 16.4 % (20.0-40.0); MEAN CELL VOLUME 87.9 fL (81.0-99.0); MEAN CORPUSCULAR HEMOGLOBIN 28.8 pg (27.0-31.0); MEAN CORPUSCULAR HGB CONC 32.8 g/dL (33.0-37.0); MEAN PLATELET VOLUME 7.5 fL (7.2-11.7); MONO # 1.2 K/uL (0.0-0.8); MONO % 11.3 % (0.0-10.0); NEUT # 7.5 K/uL (1.8-7.0); NEUT % 70.2 % (50.0-75.0); NRBC % 0.1 % (0.0-2.0); RBC 3.36 Mil/uL (3.80-5.20); RED CELL DISTRIBUTION WIDTH 16.9 % (11.5-14.5); WHITE BLOOD COUNT 10.7 K/uL (4.8-10.8)
[2018-08-06 17:01] LABS: ALB/GLOB RATIO 1.2 (1.0-2.1); ALBUMIN 4.4 g/dL (3.5-5.0); ALT/SGPT 14 U/L (9-52); AST/SGOT 19 U/L (14-36); BLOOD UREA NITROGEN 9 mg/dL (7-17); CALCIUM 10.6 mg/dl (8.6-10.4); GFR NON-AFRICAN AMERICAN > 60
[2018-08-06] MEDS ORDERED: cefTRIAXone 1 gm 0 GM/0 ML BAG IVPB ONE (17:04)
[2018-08-06] MEDS ORDERED: cefTRIAXone 1 gm 1 GM/100 ML BAG IVPB ONE (17:06)
[2018-08-06 17:13] LABS: B-TYPE NATRIURETIC PEPTIDE 277 pg/mL (0-900)
--- NOTE | 2018-08-06 17:24 | RAD ---
Date of service: 08/06/2018 PROCEDURE: CHEST RADIOGRAPH, 1 VIEW HISTORY: SOB COMPARISON: Comparison chest 08/06/2018 FINDINGS: LUNGS: . Mild bibasilar atelectasis left greater than right. PLEURA: No pneumothorax or pleural fluid seen. CARDIOVASCULAR: Heart appears enlarged OSSEOUS STRUCTURES: No significant abnormalities. VISUALIZED UPPER ABDOMEN: Normal. OTHER FINDINGS: None. IMPRESSION: Mild bibasilar atelectasis left greater than right.
[2018-08-06] MEDS ORDERED: Azithromycin 500mg/250ML NS 500 MG/250 ML BAG IVPB ONE (17:45)
[2018-08-06 18:51] LABS: SQUAMOUS EPITHIAL < 1 /hpf (0-5); URINE BILIRUBIN NEGATIVE (NEGATIVE); URINE BLOOD NEGATIVE (NEGATIVE); URINE CLARITY Clear (Clear); URINE COLOR Straw (YELLOW); URINE GLUCOSE (UA) NORMAL (Normal); URINE LEUKOCYTE ESTERASE NEG Leu/uL (Negative); URINE PROTEIN 2+ mg/dL (NEGATIVE); URINE UROBILINOGEN NORMAL mg/dL (0.2-1.0)
[2018-08-07] MEDS: Oxycodone/Acetaminophen 5/325 mg Tab PO PRN ×2 (00:11→12:13)
[2018-08-07] MEDS: Albuterol-Ipratrop 3 mg / 0.5 (3 ml) UD INH SCH ×4 (01:23→19:26)
[2018-08-07] MEDS: MethylPREDNISolone 40 mg Vial IV SCH ×3 (05:36→22:17)
[2018-08-07] MEDS: (Novolog) Insulin Aspart, Recombinant 100 u/ml 10 ml vial SC SCH ×4 (08:07→22:00)
[2018-08-07] MEDS: Multiple Vitamins Tab PO SCH (09:44)
[2018-08-07] MEDS: Cilostazol 50 mg Tab UD PO SCH ×2 (10:54→18:47)
[2018-08-07] MEDS: Bisoprolol-HCTZ 5-6.25 mg Tab PO SCH (10:54)
[2018-08-07] MEDS: Azithromycin 500 MG in Sodium Chloride 0.9% 250 ML IVPB SCH (12:15)
[2018-08-08] MEDS: Albuterol-Ipratrop 3 mg / 0.5 (3 ml) UD INH SCH ×4 (01:12→19:06)
[2018-08-08] MEDS: MethylPREDNISolone 40 mg Vial IV SCH ×3 (06:27→22:10)
[2018-08-08 07:29] LABS: BASO % 0.1 % (0.0-2.0); HEMOGLOBIN 8.6 g/dL (11.0-16.0); LYMPH % 4.9 % (20.0-40.0); MEAN CELL VOLUME 87.9 fL (81.0-99.0); MEAN CORPUSCULAR HEMOGLOBIN 28.6 pg (27.0-31.0); MEAN CORPUSCULAR HGB CONC 32.5 g/dL (33.0-37.0); MEAN PLATELET VOLUME 8.4 fL (7.2-11.7); MONO # 1.3 K/uL (0.0-0.8); NEUT # 18.8 K/uL (1.8-7.0); PLATELET COUNT 355 K/uL (130-400); RBC 3.02 Mil/uL (3.80-5.20); RED CELL DISTRIBUTION WIDTH 16.6 % (11.5-14.5)
[2018-08-08 07:31] LABS: WHITE BLOOD COUNT 21.1 K/uL (4.8-10.8)
[2018-08-08 07:45] LABS: ALB/GLOB RATIO 1.2 (1.0-2.1); ALBUMIN 3.8 g/dL (3.5-5.0); ALT/SGPT 12 U/L (9-52); AST/SGOT 20 U/L (14-36); BLOOD UREA NITROGEN 17 mg/dL (7-17); CALCIUM 9.9 mg/dl (8.6-10.4); GFR NON-AFRICAN AMERICAN > 60
[2018-08-08] MEDS: (Novolog) Insulin Aspart, Recombinant 100 u/ml 10 ml vial SC SCH ×4 (08:40→21:37)
[2018-08-08] MEDS: Cilostazol 50 mg Tab UD PO SCH ×2 (09:21→18:05)
[2018-08-08] MEDS: Bisoprolol-HCTZ 5-6.25 mg Tab PO SCH (09:21)
[2018-08-08] MEDS: Multiple Vitamins Tab PO SCH (09:21)
[2018-08-08] MEDS: Azithromycin 500 MG in Sodium Chloride 0.9% 250 ML IVPB SCH (09:22)
[2018-08-08 10:21] LABS: BANDS 2 % (0-2); LYMPHOCYTE 6 % (20-40); MONOCYTE 3 % (0-10); NEUTROPHIL 89 % (50-75); PLATELET ESTIMATE NORMAL (NORMAL); TOTAL CELLS COUNTED 100
[2018-08-08 10:22] LABS: ANISOCYTOSIS SLIGHT; HYPOCHROMIC SLIGHT; POLYCHROMIC SLIGHT
[2018-08-08 10:23] LABS: TOXIC GRANULATION PRESENT
[2018-08-08] MEDS ORDERED: MethylPREDNISolone 40 mg Vial IVP ONE (10:30)
[2018-08-08] MEDS ORDERED: Albuterol-Ipratrop 3 mg / 0.5 (3 ml) UD INH ONE (10:30)
[2018-08-08] MEDS ORDERED: Acetylcysteine 20% Inhal Soln (4ml) INH ONE (10:30)
[2018-08-08] MEDS: Acetylcysteine 20% Inhal Soln (4ml) INH SCH ×2 (10:34→19:05)
--- NOTE | 2018-08-08 10:54 | PCM.RRT ---
<Ran Rodriguez - Last Filed: 08/08/18 10:35> ORTHOTIC/PROSTHETIC CLINICIAN Nurses Assessment - Situation Date: 08/08/18 ORTHOTIC/PROSTHETIC CLINICIAN Location:: Med/Surg Room Number: 656A I.Reason for ORTHOTIC/PROSTHETIC CLINICIAN - A) Acute Change in Patient: (Select all that apply): Staff member or family is worried about patient - Neurological Status (Select all that apply): Alert, Responsive, Oriented, Verbal, Follows Commands. absent: Disoriented, Confused, Lethargic, Aggressive, Weakness - Respiratory Oxygen Delivery Method: Non Rebreather @% - Constitutional Appears: Non-toxic, In Acute Distress - Head Head Exam: ATRAUMATIC, NORMOCEPHALIC - Eyes Eye Exam: Normal appearance - Respiratory Exam Respiratory Exam: Accessory Muscle Use, Rhonchi (scattered throughout), Wheezes (scattered throughout), Respiratory Distress. absent: Rales, NORMAL BREATHING PATTERN - Cardiovascular Exam Cardiovascular Exam: Tachycardia, +S1 - GI/Abdominal Exam GI & Abdominal Exam: Soft. absent: Distended, Firm, Guarding, Rigid, Tenderness - Neurological Exam Neurological Exam: Alert, Awake, Oriented x3 Plan - Assessment of Findings&Treatment Plan Patient is a 73 year old female with a known history of COPD admitted recently for an acute COPD exacerbation. Nurse called ORTHOTIC/PROSTHETIC CLINICIAN because patient stated she was having severe difficulty breathing and feeling short of breath. Patient was wearing NC 2L but saturating in the mid 80's%. Nurse placed patient on non- rebreather and patient's saturations came up to mid/high 90s. Patient was coughing and produced blood tinged sputum. On exam, rhonchi and wheezing was auscultated scattered throughout. An order was placed for stat Duoneb and Mucomyst treatments and Solumedrol 40mg IVP. After a brief period, patient reported improvement in her breathing. She was re- examined with rhonchi still present but wheezing improved with Duoneb/Mucomyst/Solumedrol. Patient's blood tinged sputum was sent for culture. Orders placed for Mucinex and Tessalon Pearls. Patient's vital signs were stable throughout ORTHOTIC/PROSTHETIC CLINICIAN. Dr. Ledesma notified. Case discussed with Dr. Miguelina Rodriguez PGY2 <Marybeth Mcintyre V - Last Filed: 08/09/18 21:33> ORTHOTIC/PROSTHETIC CLINICIAN Nurses Assessment - Vital Signs Vital Signs: Rapid Response Vital Sign Blood Pressure 152/60 Pulse Rate 105 Respiratory Rate 22 Oxygen Saturation 100 Attending/Attestation - Attestation I have personally seen and examined this patient.: Yes I have fully participated in the care of the patient.: Yes I have reviewed all pertinent clinical information, including history, physical exam and plan: Yes Notes (Text): This is a late computer entry for 08/08/2018 Brief hospitalist note. Rapid response called for chest tightness. 73-year-old female history known COPD and aortic stenosis prompted by nursing to call rapid response for chest tightness. Patient had been awaiting DuoNeb treatment as well as Mucomyst treatment. Patient received small doses Cymetra 20 mg IV earlier in the morning. Patient had a chest x-ray completed on admission. Patient reports that normally her COPD is relatively controlled by has been using her albuterol at home quite frequently. Patient denies any history of being intubated. Patient has had an echo earlier this year noted for aortic stenosis as well. Patient ordered for DuoNeb treatment, Solumedrol 40 mg IV, and Mucomyst. Patient also noted some blood-tinged sputum which we have sent for sputum culture. Patient also started on supportive care for cough. I did speak with patient's primary as well who saw the patient shortly after in regards to RT this morning. Patient reevaluated earlier in the day with family present at bedside reporting that she is feeling better.
[2018-08-08] MEDS: guaiFENesin 600 mg ER Tab PO SCH ×2 (11:30→18:05)
[2018-08-08 14:52] LABS: CK-MB 3.88 ng/mL (0.0-3.38)
[2018-08-08 15:23] LABS: TROPONIN I 0.301 ng/mL (0.00-0.120)
[2018-08-08] MEDS ORDERED: Enoxaparin 60 mg Syringe SC SCH (18:00)
[2018-08-08] MEDS: Enoxaparin 60 mg Syringe SC SCH (18:06)
[2018-08-08 22:15] LABS: CK-MB 3.15 ng/mL (0.0-3.38); TROPONIN I 0.279 ng/mL (0.00-0.120)
--- NOTE | 2018-08-09 01:00 | PN ---
DATE: 08/07/2018 SUBJECTIVE: The patient was seen on 08/07/2018. She was having cough and wheezing. PHYSICAL EXAMINATION: VITAL SIGNS: Blood pressure was 109/51, temperature 98.2, respiratory rate 20 and pulse 93. HEENT: Pupils equal, reactive to light. Normal-appearing mucosa of the conjunctivae, oropharynx and nasal membrane mucosa. NECK: Supple. No JVD. No carotid bruit. No lymph nodes. No thyromegaly. CHEST AND LUNGS: Bilateral symmetrical expansion. Bilateral rhonchi both lung de la fuente. CARDIOVASCULAR SYSTEM: PMI not localized. S1, S2. No additional sounds. ABDOMEN: Normoactive bowel sounds. No tenderness. No organomegaly. No masses. EXTREMITIES: No cyanosis, no clubbing, no edema. JACKHAMMER OPERATOR: Alert, awake, oriented x2 and patient moves all extremities equally. ASSESSMENT: Exacerbation of chronic obstructive pulmonary disease, acute bronchitis, hypertension, type 2 diabetes mellitus, peripheral vascular disease. PLAN: Continue current medications and management including IV steroids and bronchodilators. Continue Accu-Cheks with insulin coverage. Kd Ledesma MD
[2018-08-09] MEDS: Acetylcysteine 20% Inhal Soln (4ml) INH SCH ×3 (01:30→13:43)
[2018-08-09] MEDS: Albuterol-Ipratrop 3 mg / 0.5 (3 ml) UD INH SCH ×4 (01:31→19:57)
--- NOTE | 2018-08-09 02:11 | PN ---
DATE: 08/08/2018 SUBJECTIVE: The patient is seen today, 08/08/2018. She had an WARP TIER done for chest pressure and wheezing. The patient was given an extra dose of Solu-Medrol and bronchodilators with Mucomyst. PHYSICAL EXAMINATION: VITAL SIGNS: Blood pressure 109/51, temperature 98.2, respiratory rate 20 and pulse 93. HEENT: Pupils equal, reactive to light. Normal-appearing mucosa of the conjunctivae, oropharynx and nasal membrane mucosa. NECK: Supple. No JVD. No carotid bruit. No lymph node. No thyromegaly. CHEST AND LUNGS: Bilateral symmetrical expansion. Good air exchange. No rales. There are scattered rhonchi all over lung de la fuente. CARDIOVASCULAR SYSTEM: PMI not localized. S1, S2. No additional sounds. ABDOMEN: Normoactive bowel sounds. No tenderness, no organomegaly. No masses. EXTREMITIES: No cyanosis, no clubbing, no edema. CRIBBER: Alert, awake, oriented x2. No neurological deficit could be appreciated. ASSESSMENT: 1. Exacerbation of chronic obstructive pulmonary disease. 2. Chest pain/pressure, rule out acute coronary syndrome. 3. Aortic stenosis. 4. Type 2 diabetes mellitus. 5. Hypertension. 6. Acute bronchitis. PLAN: Follow Cardiology recommendations. The patient was given an extra dose of Solu-Medrol. Continue bronchodilators, and we added Mucomyst. Cardiac enzymes x3, repeat EKG. Kd Ledesma MD
[2018-08-09] MEDS: Enoxaparin 60 mg Syringe SC SCH ×2 (05:56→18:14)
[2018-08-09] MEDS: MethylPREDNISolone 40 mg Vial IV SCH ×3 (05:57→21:33)
[2018-08-09] MEDS ORDERED: Dextrose 50% SYRINGE Inj (50 ml) IV STA (06:30)
[2018-08-09] MEDS: (Novolog) Insulin Aspart, Recombinant 100 u/ml 10 ml vial SC SCH ×4 (08:00→21:33)
[2018-08-09] MEDS: Multiple Vitamins Tab PO SCH (09:27)
[2018-08-09] MEDS: guaiFENesin 600 mg ER Tab PO SCH ×2 (09:28→18:19)
[2018-08-09] MEDS: Bisoprolol-HCTZ 5-6.25 mg Tab PO SCH (09:29)
[2018-08-09] MEDS: Cilostazol 50 mg Tab UD PO SCH ×2 (09:29→18:15)
[2018-08-09] MEDS: Azithromycin 500 MG in Sodium Chloride 0.9% 250 ML IVPB SCH (09:30)
[2018-08-09 09:34] LABS: CK-MB 2.58 ng/mL (0.0-3.38); TROPONIN I 0.151 ng/mL (0.00-0.120)
--- NOTE | 2018-08-09 10:49 | CARD ---
APPROVED REPORT Date of service: 08/06/2018 EKG Measurement Heart [id number] MN 100P37 [id number] <Conclusion> Sinus rhythm with short MN with premature supraventricular complexes Otherwise normal ECG
--- NOTE | 2018-08-09 17:23 | CARD ---
APPROVED REPORT Date of service: 08/09/2018 EXAM: LIMITED Two-dimensional echocardiogram with Doppler and color Doppler. Other Information Quality : TDSRhythm : INDICATION Aortic Valve Disease COPD Evaluate 2D DIMENSIONS LVOT Diameter2.0 (1.8-2.4cm) M-Mode DIMENSIONS RVDd1.10 (2.1-3.2cm) Aortic Valve AoV Peak Qqnddgtr615.8cm/sAoV VTI70.2cmAO Peak GR.39mmHg LVOT Peak Sxpyrxff341.6cm/sLVOT VTI32.04cmAO Mean GR.22mmHg TORREY (VMAX)1.47ne0WJX (VTI)1.99di1ZA P 1/2 [id number] Mitral Valve E/A ratio0.0 TDI E/Lateral E'0.0E/Medial E'0.0 LEFT VENTRICLE The left ventricle is normal size. There is normal left ventricular wall thickness. The left ventricular function is normal. The left ventricular ejection fraction is within the normal range. There is normal LV segmental wall motion. RIGHT VENTRICLE The right ventricle is normal size. There is normal right ventricular wall thickness. The right ventricular systolic function is normal. ATRIA The left atrium is borderline dilated. The right atrium size is normal. AORTIC VALVE The aortic valve is severely thickened. There is moderate aortic regurgitation. There is moderate valvular aortic stenosis. MITRAL VALVE The mitral valve is moderately thickened. There is no evidence of mitral valve prolapse. There is no mitral valve stenosis. Mitral regurgitation is mild. TRICUSPID VALVE The tricuspid valve is normal in structure. There is no tricuspid valve regurgitation noted. GREAT VESSELS The aortic root is normal in size. <Conclusion> The left ventricle is normal size. There is normal left ventricular wall thickness. The left ventricular function is normal. The left ventricular ejection fraction is within the normal range. There is normal LV segmental wall motion. There is moderate valvular aortic stenosis. There is moderate aortic regurgitation. Mitral regurgitation is mild.
--- NOTE | 2018-08-09 18:41 | CARD ---
APPROVED REPORT Date of service: 08/08/2018 EKG Measurement Heart [id number] [id number] <Conclusion> Sinus rhythm with premature supraventricular complexes Otherwise normal ECG
[2018-08-10] MEDS: Enoxaparin 60 mg Syringe SC SCH (06:18)
[2018-08-10] MEDS: MethylPREDNISolone 40 mg Vial IV SCH ×3 (06:18→21:27)
--- NOTE | 2018-08-10 06:22 | PN ---
DATE: 08/09/2018 SUBJECTIVE: The patient is seen today, 08/09/2018. She still has wheezing and coughing. PHYSICAL EXAMINATION: VITAL SIGNS: Blood pressure is 145/81, temperature 98.7, respiratory rate 20, and pulse 88. HEENT: Pupils equal, reactive to light. Normal-appearing mucosa of the conjunctivae, oropharynx and nasal membrane mucosa. NECK: Supple. No JVD. No carotid bruit. No lymph node. No thyromegaly. CARDIOPULMONARY: PMI not localized. S1, S2. No additional sounds. CHEST: Lungs, bilateral symmetrical expansion. Good air exchange. There are scattered rhonchi with some coarse rales. ABDOMEN: Normoactive bowel sounds. No tenderness. No organomegaly. No masses. EXTREMITIES: No cyanosis, no clubbing, no edema. 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 No neurological deficit could be appreciated. ASSESSMENT: 1. Chronic obstructive pulmonary disease exacerbation. 2. Acute bronchitis. 3. Demand ischemia with mild elevation of serum troponin with maximum of 0.30. 4. Aortic stenosis. 5. Hypoglycemia secondary to decreased oral intake. PLAN: We will hold the diabetes medicine tonight and continue Accu-Cheks with insulin coverage as needed, and continue the current medications including Solu-Medrol as well as azithromycin, cardiology consult and follow recommendations. Kd Ledesma MD
--- NOTE | 2018-08-10 06:39 | CP.PCM.CON ---
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 Abnormal Troponin COPD and dyspnea Will consider Cath prior to discharge Past Patient History - Infectious Disease Hx of Infectious Diseases: None - Past Medical History & Family History Past Medical History?: Yes - Past Social History Smoking Status: Current Some Days Smoker - CARDIAC Hx Hypercholesterolemia: Yes Hx Hypertension: Yes - PULMONARY Hx Chronic Obstructive Pulmonary Disease (COPD): Yes - NEUROLOGICAL Hx Neurological Disorder: No - HEENT Hx HEENT Problems: Yes Other/Comment: WEAR GLASSES - RENAL Hx Chronic Kidney Disease: No - ENDOCRINE/METABOLIC Hx Diabetes Mellitus Type 2: Yes - HEMATOLOGICAL/ONCOLOGICAL Hx Human Immunodeficiency Virus (HIV): No - INTEGUMENTARY Hx Dermatological Problems: No - MUSCULOSKELETAL/RHEUMATOLOGICAL Hx Arthritis: Yes - GASTROINTESTINAL Hx Diverticulitis: Yes - GENITOURINARY/GYNECOLOGICAL Hx Genitourinary Disorders: No - PSYCHIATRIC Hx Substance Use: No - SURGICAL HISTORY Hx Surgeries: Yes Hx Angiogram: Yes (Stenting bilateral legs) Hx Breast Biopsy: Yes (RT. 11 yrs old) Hx Herniorrhaphy: Yes (UMBILICAL) Hx Hysterectomy: Yes (RYANN) Hx Orthopedic Surgery: Yes (OMAR. BUNIONECTOMY) Hx Tubal Ligation: Yes - ANESTHESIA Hx Anesthesia: Yes Hx Anesthesia Reactions: No Hx Malignant Hyperthermia: No Meds Allergies/Adverse Reactions: Allergies Allergy/AdvReac Type Severity Reaction Status Date / Time Penicillins Allergy Intermediate SWELLING Verified 08/06/18 14:23 Sulfa (Sulfonamide Allergy Intermediate RASH Verified 08/06/18 14:23 Antibiotics) tomato AdvReac Intermediate GI UPSET Verified 08/06/18 14:23 - Medications Medications: Current Medications Acetylcysteine (Acetylcysteine 20%) 2 ml INH RQ6 [facility] Albuterol/Ipratropium (Duoneb 3 Mg/0.5 Mg (3 Ml) Ud) 3 ml INH RQ6 [facility] ANTONIO Last Admin: 08/09/18 19:57 Dose: 3 ml Alprazolam (Xanax) 0.25 mg PO DAILY PRN PRN Reason: Anxiety Stop: 08/13/18 23:33 Last Admin: 08/09/18 22:51 Dose: 0.25 mg Amlodipine Besylate (Norvasc) 5 mg PO DAILY [facility] Last Admin: 08/09/18 09:26 Dose: 5 mg Aspirin (Aspirin Chewable) 81 mg PO DAILY [facility] Last Admin: 08/09/18 09:28 Dose: 81 mg Benzonatate (Tessalon Perles) 100 mg PO TID [facility] Last Admin: 08/09/18 18:15 Dose: 100 mg Bisoprolol Fumarate/HCTZ (Ziac 5-6.25 Mg) 1 tab PO DAILY [facility] Last Admin: 08/09/18 09:29 Dose: Not Given Cilostazol (Pletal) 50 mg PO BID [facility] Last Admin: 08/09/18 18:15 Dose: 50 mg Clopidogrel Bisulfate (Plavix) 75 mg PO DAILY [facility] Last Admin: 08/09/18 09:26 Dose: 75 mg Enoxaparin Sodium (Lovenox) 60 mg SC Q12H [facility] Last Admin: 08/10/18 06:18 Dose: 60 mg Guaifenesin (Mucinex La) 600 mg PO BID [facility] Last Admin: 08/09/18 18:19 Dose: 600 mg Azithromycin 500 mg/ Sodium (Chloride) 250 mls @ 250 mls/hr IVPB DAILY [facility]; Protocol Last Admin: 08/09/18 09:30 Dose: 250 mls/hr Insulin Aspart (Novolog) 0 unit SC ACHS [facility]; Protocol Last Admin: 08/09/18 21:33 Dose: Not Given Losartan Potassium (Cozaar) 25 mg PO DAILY [facility] Last Admin: 08/09/18 09:27 Dose: Not Given Metformin HCl (Glucophage) 500 mg PO BID [facility] Last Admin: 08/09/18 18:17 Dose: Not Given Methylprednisolone (Solu-Medrol) 20 mg IV Q8 [facility] Last Admin: 08/10/18 06:18 Dose: 20 mg Multivitamins (Hexavitamin) 1 tab PO DAILY [facility] Last Admin: 08/09/18 09:27 Dose: 1 tab Rosuvastatin Calcium (Crestor) 5 mg PO HS [facility] Last Admin: 08/09/18 21:32 Dose: 5 mg Sitagliptin Phosphate (Januvia) 100 mg PO DAILY [facility] Last Admin: 08/09/18 15:35 Dose: Not Given Results - Vital Signs Recent Vital Signs: Last Vital Signs Temp 97.6 F 08/09/18 23:25 Pulse 70 08/10/18 01:00 Resp 20 08/09/18 23:25 BP 143/51 L 08/09/18 23:25 Pulse Ox 97 08/09/18 23:25 - Labs Result Diagrams: 08/08/18 07:16 08/08/18 07:16 Labs: Laboratory Results - last 24 hr 08/09/18 08/09/18 08/09/18 06:54 07:54 11:57 POC Glucose (mg/dL) 251 H 165 H Total Creatine Kinase 97 CK-MB (Mass) 2.58 Troponin I 0.1510 H* 08/09/18 08/09/18 15:58 21:26 POC Glucose (mg/dL) 212 H 270 H Total Creatine Kinase CK-MB (Mass) Troponin I
[2018-08-10] MEDS: (Novolog) Insulin Aspart, Recombinant 100 u/ml 10 ml vial SC SCH ×4 (07:25→21:54)
[2018-08-10] MEDS: Acetylcysteine 20% Inhal Soln (4ml) INH SCH ×3 (08:35→20:19)
[2018-08-10] MEDS: Albuterol-Ipratrop 3 mg / 0.5 (3 ml) UD INH SCH ×3 (08:35→20:19)
[2018-08-10] MEDS: Bisoprolol-HCTZ 5-6.25 mg Tab PO SCH (10:23)
[2018-08-10] MEDS: Multiple Vitamins Tab PO SCH (10:24)
[2018-08-10] MEDS: guaiFENesin 600 mg ER Tab PO SCH ×2 (10:24→18:08)
[2018-08-10] MEDS: Cilostazol 50 mg Tab UD PO SCH ×2 (10:24→18:07)
[2018-08-10] MEDS: Azithromycin 500 MG in Sodium Chloride 0.9% 250 ML IVPB SCH (10:25)
--- NOTE | 2018-08-10 21:47 | CP.PCM.PN ---
Subjective - Date & Time of Evaluation Date of Evaluation: 08/10/18 Time of Evaluation: 09:30 - Subjective Subjective: Patient still has some wheezing Does not want cath today Will schedule for tomorrow or day after Chest pain and abnormal trops COPD Mode Objective - Vital Signs/Intake and Output Vital Signs (last 24 hours): Temp Pulse Resp BP Pulse Ox 97.4 F L 80 20 134/62 98 08/10/18 15:00 08/10/18 16:00 08/10/18 15:00 08/10/18 15:00 08/10/18 15:00 Intake and Output: 08/10/18 08/11/18 18:59 06:59 Intake Total 250 Balance 250 - Medications Medications: Current Medications Acetylcysteine (Acetylcysteine 20%) 2 ml [facility]H RQ6 [facility] Last Admin: 08/10/18 20:19 Dose: 2 ml Albuterol/Ipratropium (Duoneb 3 Mg/0.5 Mg (3 Ml) Ud) 3 ml INH RQ6 [facility] Last Admin: 08/10/18 20:19 Dose: 3 ml Alprazolam (Xanax) 0.25 mg PO DAILY PRN PRN Reason: Anxiety Stop: 08/13/18 23:33 Last Admin: 08/10/18 21:29 Dose: 0.25 mg Amlodipine Besylate (Norvasc) 5 mg PO DAILY [facility] Last Admin: 08/10/18 10:23 Dose: 5 mg Aspirin (Aspirin Chewable) 81 mg PO DAILY [facility] Last Admin: 08/10/18 10:23 Dose: 81 mg Benzonatate (Tessalon Perles) 100 mg PO TID [facility] Last Admin: 08/10/18 18:08 Dose: 100 mg Bisoprolol Fumarate/HCTZ (Ziac 5-6.25 Mg) 1 tab PO DAILY [facility] Last Admin: 08/10/18 10:23 Dose: 1 tab Cilostazol (Pletal) 50 mg PO BID [facility] Last Admin: 08/10/18 18:07 Dose: 50 mg Clopidogrel Bisulfate (Plavix) 75 mg PO DAILY [facility] Last Admin: 08/10/18 10:23 Dose: 75 mg Enoxaparin Sodium (Lovenox) 40 mg SC DAILY [facility] Guaifenesin (Mucinex La) 600 mg PO BID [facility] Last Admin: 08/10/18 18:08 Dose: 600 mg Azithromycin 500 mg/ Sodium (Chloride) 250 mls @ 250 mls/hr IVPB DAILY [facility]; Protocol Last Admin: 08/10/18 10:25 Dose: 250 mls/hr Insulin Aspart (Novolog) 0 unit SC ACHS [facility]; Protocol Last Admin: 08/10/18 18:08 Dose: 4 unit Losartan Potassium (Cozaar) 25 mg PO DAILY [facility] Last Admin: 08/10/18 10:23 Dose: 25 mg Metformin HCl (Glucophage) 500 mg PO BID [facility] Last Admin: 08/10/18 18:07 Dose: 500 mg Methylprednisolone (Solu-Medrol) 20 mg IV Q8 [facility] Last Admin: 08/10/18 21:27 Dose: 20 mg Multivitamins (Hexavitamin) 1 tab PO DAILY [facility] Last Admin: 08/10/18 10:24 Dose: 1 tab Rosuvastatin Calcium (Crestor) 5 mg PO HS [facility] Last Admin: 08/10/18 21:27 Dose: 5 mg Sitagliptin Phosphate (Januvia) 100 mg PO DAILY [facility] Last Admin: 08/10/18 10:31 Dose: Not Given - Labs Labs: 08/08/18 07:16 08/08/18 07:16
--- NOTE | 2018-08-10 23:03 | PN ---
DATE: 08/10/2018 SUBJECTIVE: The patient is seen today, 08/10/2018. She is still having cough and wheezing. PHYSICAL EXAMINATION: VITAL SIGNS: Blood pressure is 134/62, temperature 97.4, respiratory rate 20, and pulse 82. HEENT: Pupils equal and reactive to light. Normal-appearing mucosa of the conjunctivae, oropharynx, and nasal membrane mucosa. NECK: Supple. No JVD. No carotid bruits. No lymph nodes. No thyromegaly. CHEST AND LUNGS: Bilateral symmetrical expansion. Good air exchange. There are coarse rales and scattered rhonchi all over lung de la fuente. CARDIOVASCULAR SYSTEM: PMI not localized. S1, S2. No additional sounds. ABDOMEN: Normoactive bowel sounds. No tenderness. No organomegaly. No masses. EXTREMITIES: No cyanosis, no clubbing, no edema. 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 No neurological deficits could be appreciated. ASSESSMENT: Exacerbation of chronic obstructive pulmonary disease, acute bronchitis, non-ST elevation myocardial infarction, aortic stenosis. PLAN: Continue current medications and management and taper steroids as tolerated. Follow Cardiology recommendations. dK Ledesma MD
[2018-08-11] MEDS: Albuterol-Ipratrop 3 mg / 0.5 (3 ml) UD INH SCH ×4 (01:05→19:48)
[2018-08-11] MEDS: Acetylcysteine 20% Inhal Soln (4ml) INH SCH ×4 (01:06→19:47)
[2018-08-11] MEDS: MethylPREDNISolone 40 mg Vial IV SCH ×3 (06:18→22:12)
[2018-08-11] MEDS: (Novolog) Insulin Aspart, Recombinant 100 u/ml 10 ml vial SC SCH ×4 (08:25→22:15)
[2018-08-11] MEDS: Bisoprolol-HCTZ 5-6.25 mg Tab PO SCH (09:36)
[2018-08-11] MEDS: Cilostazol 50 mg Tab UD PO SCH ×2 (09:36→18:48)
[2018-08-11] MEDS: Multiple Vitamins Tab PO SCH (09:36)
[2018-08-11] MEDS: Azithromycin 500 MG in Sodium Chloride 0.9% 250 ML IVPB SCH (09:37)
[2018-08-11] MEDS: Enoxaparin 40 mg Syringe SC SCH (09:37)
[2018-08-11] MEDS: guaiFENesin 600 mg ER Tab PO SCH ×2 (09:37→18:48)
--- NOTE | 2018-08-11 15:29 | CP.PCM.CON ---
History of Present Illness - History of Present Illness History of Present Illness: Patient is a 73 year old female with a PMHx of HTN, DM, High cholesterol, Arthritis, Osteoporosis, Pneumonia, COPD, Bronchitis, who presents with SOB that has been on going for the past 3 weeks. SOB is associated with cough with yellow- blood tinged phlegm. SOB is present at rest and with exertion. Patient was using her albuterol nebulizer with no symptom relief. She also admits to chest tightness and chest pain that is does not radiate in the left arm, although she does admit to bilateral upper extremity numbness R>L. 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 Lives at home on her own. Denies alcohol use. Smokes approximately 1/2 ppd since age 15 (29 year smoking history). CXR on 08/06 - Mild bibasilar atelectasis left greater then right. No pneumothorax or pleural fluid seen Past Patient History - Infectious Disease Hx of Infectious Diseases: None - Past Medical History & Family History Past Medical History?: Yes - Past Social History Smoking Status: Current Some Days Smoker - CARDIAC Hx Hypercholesterolemia: Yes Hx Hypertension: Yes - PULMONARY Hx Chronic Obstructive Pulmonary Disease (COPD): Yes - NEUROLOGICAL Hx Neurological Disorder: No - HEENT Hx HEENT Problems: Yes Other/Comment: WEAR GLASSES - RENAL Hx Chronic Kidney Disease: No - ENDOCRINE/METABOLIC Hx Diabetes Mellitus Type 2: Yes - HEMATOLOGICAL/ONCOLOGICAL Hx Human Immunodeficiency Virus (HIV): No - INTEGUMENTARY Hx Dermatological Problems: No - MUSCULOSKELETAL/RHEUMATOLOGICAL Hx Arthritis: Yes - GASTROINTESTINAL Hx Diverticulitis: Yes - GENITOURINARY/GYNECOLOGICAL Hx Genitourinary Disorders: No - PSYCHIATRIC Hx Substance Use: No - SURGICAL HISTORY Hx Surgeries: Yes Hx Angiogram: Yes (Stenting bilateral legs) Hx Breast Biopsy: Yes (RT. 11 yrs old) Hx Herniorrhaphy: Yes (UMBILICAL) Hx Hysterectomy: Yes (RYANN) Hx Orthopedic Surgery: Yes (OMAR. BUNIONECTOMY) Hx Tubal Ligation: Yes - ANESTHESIA Hx Anesthesia: Yes Hx Anesthesia Reactions: No Hx Malignant Hyperthermia: No Meds Allergies/Adverse Reactions: Allergies Allergy/AdvReac Type Severity Reaction Status Date / Time Penicillins Allergy Intermediate SWELLING Verified 08/06/18 14:23 Sulfa (Sulfonamide Allergy Intermediate RASH Verified 08/06/18 14:23 Antibiotics) tomato AdvReac Intermediate GI UPSET Verified 08/06/18 14:23 - Medications Medications: Current Medications Acetylcysteine (Acetylcysteine 20%) 2 ml INH RQ6 [facility] Last Admin: 08/11/18 13:19 Dose: 2 ml Albuterol/Ipratropium (Duoneb 3 Mg/0.5 Mg (3 Ml) Ud) 3 ml INH RQ6 [facility] Last Admin: 08/11/18 13:18 Dose: 3 ml Alprazolam (Xanax) 0.25 mg PO DAILY PRN PRN Reason: Anxiety Stop: 08/13/18 23:33 Last Admin: 08/10/18 21:29 Dose: 0.25 mg Amlodipine Besylate (Norvasc) 5 mg PO DAILY [facility] Last Admin: 08/11/18 09:36 Dose: 5 mg Aspirin (Aspirin Chewable) 81 mg PO DAILY [facility] Last Admin: 08/11/18 09:36 Dose: 81 mg Benzonatate (Tessalon Perles) 100 mg PO TID [facility] Last Admin: 08/11/18 13:31 Dose: 100 mg Bisoprolol Fumarate/HCTZ (Ziac 5-6.25 Mg) 1 tab PO DAILY [facility] Last Admin: 08/11/18 09:36 Dose: 1 tab Cilostazol (Pletal) 50 mg PO BID [facility] Last Admin: 08/11/18 09:36 Dose: 50 mg Clopidogrel Bisulfate (Plavix) 75 mg PO DAILY [facility] Last Admin: 08/11/18 09:37 Dose: 75 mg Enoxaparin Sodium (Lovenox) 40 mg SC DAILY [facility] Last Admin: 08/11/18 09:37 Dose: 40 mg Guaifenesin (Mucinex La) 600 mg PO BID [facility] Last Admin: 08/11/18 09:37 Dose: 600 mg Azithromycin 500 mg/ Sodium (Chloride) 250 mls @ 250 mls/hr IVPB DAILY [facility]; Protocol Last Admin: 08/11/18 09:37 Dose: 250 mls/hr Insulin Aspart (Novolog) 0 unit SC ACHS [facility]; Protocol Last Admin: 08/11/18 12:15 Dose: 4 unit Losartan Potassium (Cozaar) 25 mg PO DAILY [facility] Last Admin: 08/11/18 09:37 Dose: 25 mg Metformin HCl (Glucophage) 500 mg PO BID [facility] Last Admin: 08/11/18 09:36 Dose: 500 mg Methylprednisolone (Solu-Medrol) 20 mg IV Q8 [facility] Last Admin: 08/11/18 13:31 Dose: 20 mg Multivitamins (Hexavitamin) 1 tab PO DAILY [facility] Last Admin: 08/11/18 09:36 Dose: 1 tab Rosuvastatin Calcium (Crestor) 5 mg PO HS [facility] Last Admin: 08/10/18 21:27 Dose: 5 mg Sitagliptin Phosphate (Januvia) 100 mg PO DAILY [facility] Last Admin: 08/11/18 09:36 Dose: 100 mg Results - Vital Signs Recent Vital Signs: Last Vital Signs Temp 97.8 F 08/11/18 07:00 Pulse 79 08/11/18 12:01 Resp 18 08/11/18 09:35 BP 152/52 H 08/11/18 09:35 Pulse Ox 100 08/11/18 09:35 - Labs Result Diagrams: 08/08/18 07:16 08/08/18 07:16 Labs: Laboratory Results - last 24 hr 08/10/18 08/10/18 08/10/18 11:09 16:41 21:04 POC Glucose (mg/dL) 133 H 309 H 274 H 08/11/18 08/11/18 06:12 11:07 POC Glucose (mg/dL) 188 H 356 H
[2018-08-11 20:33] LABS: PROTHROMBIN TIME 10.9 SECONDS (9.7-12.2)
[2018-08-12] MEDS: Acetylcysteine 20% Inhal Soln (4ml) INH SCH ×3 (02:35→19:25)
[2018-08-12] MEDS: Albuterol-Ipratrop 3 mg / 0.5 (3 ml) UD INH SCH ×5 (02:35→19:59)
[2018-08-12] MEDS: MethylPREDNISolone 40 mg Vial IV SCH ×3 (07:07→21:30)
[2018-08-12] MEDS: (Novolog) Insulin Aspart, Recombinant 100 u/ml 10 ml vial SC SCH ×4 (07:15→21:25)
[2018-08-12 07:30] LABS: HEMOGLOBIN 8.7 g/dL (11.0-16.0); MEAN CELL VOLUME 87.5 fL (81.0-99.0); MEAN CORPUSCULAR HEMOGLOBIN 28.4 pg (27.0-31.0); MEAN CORPUSCULAR HGB CONC 32.4 g/dL (33.0-37.0); MEAN PLATELET VOLUME 8.4 fL (7.2-11.7); RBC 3.06 Mil/uL (3.80-5.20); RED CELL DISTRIBUTION WIDTH 16.6 % (11.5-14.5); WHITE BLOOD COUNT 19.2 K/uL (4.8-10.8)
[2018-08-12 07:32] LABS: PROTHROMBIN TIME 10.6 SECONDS (9.7-12.2)
[2018-08-12 08:22] LABS: BLOOD UREA NITROGEN 24 mg/dL (7-17); CALCIUM 10.1 mg/dl (8.6-10.4); GFR NON-AFRICAN AMERICAN > 60
[2018-08-12] MEDS ORDERED: Lidocaine 2% PF (10 ml) Amp ONE (08:43)
[2018-08-12] MEDS ORDERED: Verapamil 2 ML ONE (09:15)
[2018-08-12] MEDS ORDERED: Nitroglycerin 50mg in D5W 50 MG/250 ML BOTTLE IV ONE (09:15)
[2018-08-12] MEDS ORDERED: Midazolam 2 MG/2 ML VIAL ONE (09:27)
[2018-08-12] MEDS ORDERED: DiphenhydrAMINE 50 mg/ml Inj ONE (09:44)
[2018-08-12] MEDS ORDERED: Albuterol 0.083% Inhal Sol (2.5 mg/3 mL) UD ONE (09:45)
[2018-08-12] MEDS ORDERED: Iohexol 350mg/ml 100 ML ONE (11:10)
[2018-08-12] MEDS: Multiple Vitamins Tab PO SCH (11:33)
[2018-08-12] MEDS: guaiFENesin 600 mg ER Tab PO SCH ×2 (11:33→17:50)
[2018-08-12] MEDS: Enoxaparin 40 mg Syringe SC SCH (11:33)
[2018-08-12] MEDS: Bisoprolol-HCTZ 5-6.25 mg Tab PO SCH (11:35)
[2018-08-12] MEDS: Cilostazol 50 mg Tab UD PO SCH ×2 (11:35→17:50)
[2018-08-12] MEDS: Azithromycin 500 MG in Sodium Chloride 0.9% 250 ML IVPB SCH (11:35)
--- NOTE | 2018-08-12 11:44 | CP.PCM.PN ---
Subjective - Date & Time of Evaluation Date of Evaluation: 08/12/18 Time of Evaluation: 11:24 - Subjective Subjective: Patient s/p cardiac cath Right radial access L Main: Mild calcific disease LAD: Proximal 90% calcific disease L Cx: Mild disease RCA: Ostial calcific 90% stenosis EF: 60%, moderate Due to her fragility, severe lung disease high risk for PCI/atherectomy or CABG Recommend medical therapy now Objective - Vital Signs/Intake and Output Vital Signs (last 24 hours): Temp Pulse Resp BP Pulse Ox 98.3 F 79 20 121/45 L 96 08/11/18 23:25 08/12/18 01:00 08/11/18 23:25 08/11/18 23:25 08/11/18 23:25 - Medications Medications: Current Medications Acetylcysteine (Acetylcysteine 20%) 2 ml INH RQ6 [facility] Last Admin: 08/12/18 07:39 Dose: Not Given Albuterol/Ipratropium (Duoneb 3 Mg/0.5 Mg (3 Ml) Ud) 3 ml INH RQ6 [facility] Last Admin: 08/12/18 07:39 Dose: Not Given Alprazolam (Xanax) 0.25 mg PO DAILY PRN PRN Reason: Anxiety Stop: 08/13/18 23:33 Last Admin: 08/11/18 22:12 Dose: 0.25 mg Amlodipine Besylate (Norvasc) 5 mg PO DAILY [facility] Last Admin: 08/11/18 09:36 Dose: 5 mg Aspirin (Aspirin Chewable) 81 mg PO DAILY [facility] Last Admin: 08/11/18 09:36 Dose: 81 mg Benzonatate (Tessalon Perles) 100 mg PO TID [facility] Last Admin: 08/11/18 18:48 Dose: 100 mg Bisoprolol Fumarate/HCTZ (Ziac 5-6.25 Mg) 1 tab PO DAILY [facility] Last Admin: 08/11/18 09:36 Dose: 1 tab Cilostazol (Pletal) 50 mg PO BID [facility] Last Admin: 08/11/18 18:48 Dose: 50 mg Clopidogrel Bisulfate (Plavix) 75 mg PO DAILY [facility] Last Admin: 08/11/18 09:37 Dose: 75 mg Enoxaparin Sodium (Lovenox) 40 mg SC DAILY [facility] Last Admin: 08/11/18 09:37 Dose: 40 mg Guaifenesin (Mucinex La) 600 mg PO BID [facility] Last Admin: 08/11/18 18:48 Dose: 600 mg Insulin Aspart (Novolog) 0 unit SC [facility]; Protocol Last Admin: 08/11/18 22:15 Dose: Not Given Losartan Potassium (Cozaar) 25 mg PO DAILY [facility] Last Admin: 08/11/18 09:37 Dose: 25 mg Metformin HCl (Glucophage) 500 mg PO BID [facility] Last Admin: 08/11/18 18:48 Dose: 500 mg Methylprednisolone (Solu-Medrol) 20 mg IV Q8 [facility] Last Admin: 08/12/18 07:07 Dose: 20 mg Multivitamins (Hexavitamin) 1 tab PO DAILY [facility] Last Admin: 08/11/18 09:36 Dose: 1 tab Rosuvastatin Calcium (Crestor) 5 mg PO HS [facility] Last Admin: 08/11/18 22:12 Dose: 5 mg Sitagliptin Phosphate (Januvia) 100 mg PO DAILY [facility] Last Admin: 08/11/18 09:36 Dose: 100 mg - Labs Labs: 08/12/18 07:22 08/12/18 07:22 PT 10.6 SECONDS (9.7-12.2) 08/12/18 07:22 INR 1.0 08/12/18 07:22 APTT 26 SECONDS (21-34) 08/11/18 20:17
--- NOTE | 2018-08-12 14:53 | PN ---
DATE: 08/11/2018 SUBJECTIVE: The patient was seen on 08/11/2018. She was still having cough and shortness of breath and wheezing. PHYSICAL EXAMINATION: VITAL SIGNS: Blood pressure was 137/55, temperature 98.5, respiratory rate 20, and pulse 79. HEENT: Pupils equal, reactive to light. Normal-appearing mucosa of the conjunctivae, oropharynx and nasal membrane mucosa. NECK: Supple. No JVD. No carotid bruit. No lymph node. No thyromegaly. CHEST AND LUNGS: Bilateral symmetrical expansion. Diffuse rhonchi across all lung de la fuente. Positive coarse rales. CARDIOVASCULAR SYSTEM: PMI not localized. S1 and S2. No additional sounds. ABDOMEN: Normoactive bowel sounds. No tenderness. No organomegaly. No masses. EXTREMITIES: No cyanosis. No clubbing. No edema. 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 No neurological deficit could be appreciated. ASSESSMENT: Exacerbation of chronic obstructive pulmonary disease, type 2 diabetes mellitus, hypertension, moderate valvular aortic stenosis, demand cardiac ischemia with fractional elevation of the serum troponin. PLAN: Continue current management and we will consult Pulmonary. Follow wet machine cutter's recommendations. We will taper steroids as tolerated. Kd Ledesma MD
--- NOTE | 2018-08-12 18:09 | CP.PCM.PN ---
Subjective - Date & Time of Evaluation Date of Evaluation: 08/12/18 Time of Evaluation: 10:00 - Subjective Subjective: As per nursing, patient went for Cardiac Cath earlier today. Patient is s/p Cardiac Cath done by Dr. Logan Patient was seen and examined in cardiac cath recovery room. Reports she is feeling well overall with persistent SOB. Cough is persistent with yellow blood tinged sputum. Sputum - Positive for few yeast and gram positive cocci in clusters. Objective - Vital Signs/Intake and Output Vital Signs (last 24 hours): Temp Pulse Resp BP Pulse Ox 97.9 F 101 H 20 154/59 H 100 08/12/18 15:05 08/12/18 15:05 08/12/18 15:05 08/12/18 15:05 08/12/18 15:05 - Medications Medications: Current Medications Acetylcysteine (Acetylcysteine 20%) 2 ml INH RQ6 [facility] Last Admin: 08/12/18 07:39 Dose: Not Given Albuterol/Ipratropium (Duoneb 3 Mg/0.5 Mg (3 Ml) Ud) 3 ml INH RQ6 [facility] Last Admin: 08/12/18 13:37 Dose: Not Given Alprazolam (Xanax) 0.25 mg PO DAILY PRN PRN Reason: Anxiety Stop: 08/13/18 23:33 Last Admin: 08/11/18 22:12 Dose: 0.25 mg Amlodipine Besylate (Norvasc) 5 mg PO DAILY [facility] Last Admin: 08/12/18 11:34 Dose: Not Given Aspirin (Aspirin Chewable) 81 mg PO DAILY [facility] Last Admin: 08/12/18 11:32 Dose: Not Given Benzonatate (Tessalon Perles) 100 mg PO TID [facility] Last Admin: 08/12/18 17:50 Dose: 100 mg Bisoprolol Fumarate/HCTZ (Ziac 5-6.25 Mg) 1 tab PO DAILY [facility] Last Admin: 08/12/18 11:35 Dose: Not Given Cilostazol (Pletal) 50 mg PO BID [facility] Last Admin: 08/12/18 17:50 Dose: 50 mg Clopidogrel Bisulfate (Plavix) 75 mg PO DAILY [facility] Last Admin: 08/12/18 11:35 Dose: Not Given Enoxaparin Sodium (Lovenox) 40 mg SC DAILY [facility] Last Admin: 08/12/18 11:33 Dose: Not Given Guaifenesin (Mucinex La) 600 mg PO BID [facility] Last Admin: 08/12/18 17:50 Dose: 600 mg Insulin Aspart (Novolog) 0 unit SC ACHS [facility]; Protocol Last Admin: 08/12/18 17:00 Dose: 5 unit Losartan Potassium (Cozaar) 25 mg PO DAILY [facility] Last Admin: 08/12/18 11:32 Dose: Not Given Metformin HCl (Glucophage) 500 mg PO BID [facility] Last Admin: 08/12/18 11:32 Dose: Not Given Methylprednisolone (Solu-Medrol) 20 mg IV Q8 [facility] Last Admin: 08/12/18 13:58 Dose: Not Given Multivitamins (Hexavitamin) 1 tab PO DAILY [facility] Last Admin: 08/12/18 11:33 Dose: Not Given Rosuvastatin Calcium (Crestor) 5 mg PO HS [facility] Last Admin: 08/11/18 22:12 Dose: 5 mg Sitagliptin Phosphate (Januvia) 100 mg PO DAILY [facility] Last Admin: 08/12/18 11:33 Dose: Not Given - Labs Labs: 08/12/18 07:22 08/12/18 07:22 PT 10.6 SECONDS (9.7-12.2) 08/12/18 07:22 INR 1.0 08/12/18 07:22 APTT 26 SECONDS (21-34) 08/11/18 20:17 Assessment and Plan (1) COPD (chronic obstructive pulmonary disease) Assessment & Plan: continue IV antibiotics Continue nebulizer treatment and steroids Status post cardiac catheter with triple-vessel disease Antitussive Status: Acute
--- NOTE | 2018-08-12 22:51 | PN ---
DATE: 08/12/2018 SUBJECTIVE: The patient is seen today, 08/12/2018. She is still having cough and some exertional shortness of breath. PHYSICAL EXAMINATION: VITAL SIGNS: Blood pressure 154/59, temperature 97.9, respiratory rate 20, and pulse 100. HEENT: Pupils equal, reactive to light. Normal-appearing mucosa of the conjunctivae, oropharynx and nasal membrane mucosa. NECK: Supple. No JVD. No carotid bruit. No lymph node. No thyromegaly. CARDIOPULMONARY: PMI not localized. S1, S2. No additional sounds. CHEST: Lungs, bilateral symmetrical expansion. Good air exchange. There are bilateral rhonchi and coarse rales. ABD OMEN: Normoactive bowel sounds. No tenderness. No organomegaly. No masses. EXTREMITIES: No cyanosis, no clubbing, no edema. 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 No neurological deficit could be appreciated. ASSESSMENT: Exacerbation of chronic obstructive pulmonary disease, acute bronchitis, type 2 diabetes mellitus, hypertension, aortic stenosis. PLAN: Continue current medications and taper steroids as tolerated. Follow the pulmonary recommendations. Kd Ledesma MD
--- NOTE | 2018-08-12 23:27 | CP.PCM.PN ---
Subjective - Date & Time of Evaluation Date of Evaluation: 08/11/18 Time of Evaluation: 07:30 - Subjective Subjective: Patient seen and evaluated No new events noted Objective - Vital Signs/Intake and Output Vital Signs (last 24 hours): Temp Pulse Resp BP Pulse Ox 97.9 F 101 H 20 154/59 H 100 08/12/18 15:05 08/12/18 15:05 08/12/18 15:05 08/12/18 15:05 08/12/18 15:05 - Medications Medications: Current Medications Acetylcysteine (Acetylcysteine 20%) 2 ml INH RQ6 [facility] Last Admin: 08/12/18 19:25 Dose: 2 ml Albuterol/Ipratropium (Duoneb 3 Mg/0.5 Mg (3 Ml) Ud) 3 ml INH RQ6 [facility] Last Admin: 08/12/18 19:59 Dose: 3 ml Alprazolam (Xanax) 0.25 mg PO DAILY PRN PRN Reason: Anxiety Stop: 08/13/18 23:33 Last Admin: 08/12/18 21:30 Dose: 0.25 mg Amlodipine Besylate (Norvasc) 5 mg PO DAILY [facility] Last Admin: 08/12/18 11:34 Dose: Not Given Aspirin (Aspirin Chewable) 81 mg PO DAILY [facility] Last Admin: 08/12/18 11:32 Dose: Not Given Benzonatate (Tessalon Perles) 100 mg PO TID [facility] Last Admin: 08/12/18 17:50 Dose: 100 mg Bisoprolol Fumarate/HCTZ (Ziac 5-6.25 Mg) 1 tab PO DAILY [facility] Last Admin: 08/12/18 11:35 Dose: Not Given Cilostazol (Pletal) 50 mg PO BID [facility] Last Admin: 08/12/18 17:50 Dose: 50 mg Clopidogrel Bisulfate (Plavix) 75 mg PO DAILY [facility] Last Admin: 08/12/18 11:35 Dose: Not Given Enoxaparin Sodium (Lovenox) 40 mg SC DAILY [facility] Last Admin: 08/12/18 11:33 Dose: Not Given Guaifenesin (Mucinex La) 600 mg PO BID [facility] Last Admin: 08/12/18 17:50 Dose: 600 mg Insulin Aspart (Novolog) 0 unit SC [facility]; Protocol Last Admin: 08/12/18 21:25 Dose: Not Given Losartan Potassium (Cozaar) 25 mg PO DAILY [facility] Last Admin: 08/12/18 11:32 Dose: Not Given Metformin HCl (Glucophage) 500 mg PO BID [facility] Last Admin: 08/12/18 11:32 Dose: Not Given Methylprednisolone (Solu-Medrol) 20 mg IV Q8 [facility] Last Admin: 08/12/18 21:30 Dose: 20 mg Multivitamins (Hexavitamin) 1 tab PO DAILY [facility] Last Admin: 08/12/18 11:33 Dose: Not Given Rosuvastatin Calcium (Crestor) 5 mg PO HS [facility] Last Admin: 08/12/18 21:31 Dose: 5 mg Sitagliptin Phosphate (Januvia) 100 mg PO DAILY [facility] Last Admin: 08/12/18 11:33 Dose: Not Given - Labs Labs: 08/12/18 07:22 08/12/18 07:22 PT 10.6 SECONDS (9.7-12.2) 08/12/18 07:22 INR 1.0 08/12/18 07:22 APTT 26 SECONDS (21-34) 08/11/18 20:17
[2018-08-13] MEDS: Acetylcysteine 20% Inhal Soln (4ml) INH SCH ×4 (01:25→19:41)
[2018-08-13] MEDS: Albuterol-Ipratrop 3 mg / 0.5 (3 ml) UD INH SCH ×4 (01:25→19:41)
[2018-08-13] MEDS: MethylPREDNISolone 40 mg Vial IV SCH ×3 (05:44→21:15)
[2018-08-13] MEDS: (Novolog) Insulin Aspart, Recombinant 100 u/ml 10 ml vial SC SCH ×4 (08:55→22:26)
[2018-08-13] MEDS: Bisoprolol-HCTZ 5-6.25 mg Tab PO SCH (10:10)
[2018-08-13] MEDS: Cilostazol 50 mg Tab UD PO SCH ×2 (10:10→17:24)
[2018-08-13] MEDS: Multiple Vitamins Tab PO SCH (10:10)
[2018-08-13] MEDS: guaiFENesin 600 mg ER Tab PO SCH ×2 (10:11→17:24)
[2018-08-13] MEDS: Enoxaparin 40 mg Syringe SC SCH (10:11)
--- NOTE | 2018-08-13 17:09 | CP.PCM.PN ---
Subjective - Date & Time of Evaluation Date of Evaluation: 08/13/18 Time of Evaluation: 13:30 - Subjective Subjective: Patient was seen and examined at bedside in no acute distress. Afebrile. S/P cardiac cath with triple vessel disease. Reports persistent SOB at rest and with exertion. Associated with chest tightness that she describes as like "every breath is going to be the last". Continued cough with yellow blood tinged phlegm. Objective - Vital Signs/Intake and Output Vital Signs (last 24 hours): Temp Pulse Resp BP Pulse Ox 97.9 F 87 20 118/51 L 100 08/13/18 15:00 08/13/18 15:00 08/13/18 15:00 08/13/18 15:00 08/13/18 15:00 - Medications Medications: Current Medications Acetylcysteine (Acetylcysteine 20%) 2 ml INH RQ6 [facility] Last Admin: 08/13/18 13:49 Dose: 2 ml Albuterol/Ipratropium (Duoneb 3 Mg/0.5 Mg (3 Ml) Ud) 3 ml INH RQ6 [facility] Last Admin: 08/13/18 13:49 Dose: 3 ml Alprazolam (Xanax) 0.25 mg PO DAILY PRN PRN Reason: Anxiety Stop: 08/13/18 23:33 Last Admin: 08/12/18 21:30 Dose: 0.25 mg Amlodipine Besylate (Norvasc) 5 mg PO DAILY [facility] Last Admin: 08/13/18 10:11 Dose: Not Given Aspirin (Aspirin Chewable) 81 mg PO DAILY [facility] Last Admin: 08/13/18 10:10 Dose: 81 mg Benzonatate (Tessalon Perles) 100 mg PO TID [facility] Last Admin: 08/13/18 13:26 Dose: 100 mg Bisoprolol Fumarate/HCTZ (Ziac 5-6.25 Mg) 1 tab PO DAILY [facility] Last Admin: 08/13/18 10:10 Dose: 1 tab Cilostazol (Pletal) 50 mg PO BID [facility] Last Admin: 08/13/18 10:10 Dose: 50 mg Clopidogrel Bisulfate (Plavix) 75 mg PO DAILY [facility] Last Admin: 08/13/18 10:11 Dose: 75 mg Enoxaparin Sodium (Lovenox) 40 mg SC DAILY [facility] Last Admin: 08/13/18 10:11 Dose: 40 mg Guaifenesin (Mucinex La) 600 mg PO BID [facility] Last Admin: 08/13/18 10:11 Dose: 600 mg Insulin Aspart (Novolog) 0 unit SC ACHS [facility]; Protocol Last Admin: 08/13/18 13:27 Dose: 2 unit Losartan Potassium (Cozaar) 25 mg PO DAILY [facility] Last Admin: 08/13/18 10:11 Dose: 25 mg Metformin HCl (Glucophage) 500 mg PO BID [facility] Last Admin: 08/12/18 11:32 Dose: Not Given Methylprednisolone (Solu-Medrol) 20 mg IV Q8 [facility] Last Admin: 08/13/18 13:27 Dose: 20 mg Multivitamins (Hexavitamin) 1 tab PO DAILY [facility] Last Admin: 08/13/18 10:10 Dose: 1 tab Nystatin (Nystatin Oral Susp) 5 ml PO QID [facility] Rosuvastatin Calcium (Crestor) 5 mg PO HS [facility] Last Admin: 08/12/18 21:31 Dose: 5 mg Sitagliptin Phosphate (Januvia) 100 mg PO DAILY [facility] Last Admin: 08/13/18 10:11 Dose: 100 mg - Labs Labs: 08/12/18 07:22 08/12/18 07:22 PT 10.6 SECONDS (9.7-12.2) 08/12/18 07:22 INR 1.0 08/12/18 07:22 APTT 26 SECONDS (21-34) 08/11/18 20:17 - Head Exam Head Exam: ATRAUMATIC, NORMOCEPHALIC - ENT Exam ENT Exam: Mucous Membranes Moist - Neck Exam Neck Exam: Normal Inspection - Respiratory Exam Respiratory Exam: Rhonchi - Cardiovascular Exam Cardiovascular Exam: REGULAR RHYTHM - GI/Abdominal Exam GI & Abdominal Exam: Soft, Normal Bowel Sounds Assessment and Plan (1) COPD (chronic obstructive pulmonary disease) Assessment & Plan: Continue present treatment for now Clinically improving Start tapering steroids from a.m. Status: Acute
[2018-08-13] MEDS: Nystatin 100,000 Units/ml Oral Susp 5 ml UD PO SCH ×2 (17:24→21:16)
--- NOTE | 2018-08-13 18:04 | CT ---
Date of service: 08/13/2018 PROCEDURE: CT Chest without contrast HISTORY: Pneumonia. Hemoptysis. History provided include COPD. COMPARISON: 07/03/[address] thorax TECHNIQUE: Contiguous axial images were obtained through the chest without intravenous contrast enhancement. Sagittal and coronal reconstructions were performed. Radiation dose (DLP): 338.55 mGy-cm. This CT exam was performed using one or more of the following dose reduction techniques: Automated exposure control, adjustment of the mA and/or kV according to patient size, and/or use of iterative reconstruction technique. FINDINGS: LUNGS: Bullous change, centrilobular emphysematous findings. There is a large thin-walled uncomplicated bulla in the apex of the right lung. Similar finding was seen on the prior [address] 07/03/2016. Dependent atelectasis at the lung bases, lower lobe distribution. MEDIASTINUM: Densely calcified non aneurysmal thoracic aorta. Normal sized heart. Main pulmonary artery unremarkable. No vascular congestion. No lymphadenopathy. PLEURA: No pleural fluid. No pneumothorax. BONES: No fracture. No destructive lesion. UPPER ABDOMEN: Grossly unremarkable. OTHER FINDINGS: Left breast mass suspected. Incompletely visualized right breast. Most recent mammogram is from 04/13/2015. No abnormalities identified. Recommend elective mammogram and correlation with breast physical examination. IMPRESSION: Emphysematous changes in the lungs similar to that seen prior CT scan of the thorax 07/03/2016. Lower lobe atelectasis. No suspicious pulmonary nodules, masses or infiltrates.
--- NOTE | 2018-08-13 21:33 | CP.PCM.PN ---
Subjective - Date & Time of Evaluation Date of Evaluation: 08/13/18 Time of Evaluation: 18:30 - Subjective Subjective: Patient see and evaluated denies chest pain and dyspnea Medical management for CAD F/U my office in 3-4 weeks Objective - Vital Signs/Intake and Output Vital Signs (last 24 hours): Temp Pulse Resp BP Pulse Ox 97.9 F 87 20 118/51 L 100 08/13/18 15:00 08/13/18 15:00 08/13/18 15:00 08/13/18 15:00 08/13/18 15:00 - Medications Medications: Current Medications Acetylcysteine (Acetylcysteine 20%) 2 ml INH RQ6 [facility] Last Admin: 08/13/18 19:41 Dose: 2 ml Albuterol/Ipratropium (Duoneb 3 Mg/0.5 Mg (3 Ml) Ud) 3 ml INH RQ6 [facility] Last Admin: 08/13/18 19:41 Dose: 3 ml Alprazolam (Xanax) 0.25 mg PO DAILY PRN PRN Reason: Anxiety Stop: 08/13/18 23:33 Last Admin: 08/13/18 21:16 Dose: 0.25 mg Amlodipine Besylate (Norvasc) 5 mg PO DAILY [facility] Last Admin: 08/13/18 10:11 Dose: Not Given Aspirin (Aspirin Chewable) 81 mg PO DAILY [facility] Last Admin: 08/13/18 10:10 Dose: 81 mg Benzonatate (Tessalon Perles) 100 mg PO TID [facility] Last Admin: 08/13/18 17:24 Dose: 100 mg Bisoprolol Fumarate/HCTZ (Ziac 5-6.25 Mg) 1 tab PO DAILY [facility] Last Admin: 08/13/18 10:10 Dose: 1 tab Cilostazol (Pletal) 50 mg PO BID [facility] Last Admin: 08/13/18 17:24 Dose: 50 mg Clopidogrel Bisulfate (Plavix) 75 mg PO DAILY [facility] Last Admin: 08/13/18 10:11 Dose: 75 mg Enoxaparin Sodium (Lovenox) 40 mg SC DAILY [facility] Last Admin: 08/13/18 10:11 Dose: 40 mg Guaifenesin (Mucinex La) 600 mg PO BID [facility] Last Admin: 08/13/18 17:24 Dose: 600 mg Insulin Aspart (Novolog) 0 unit SC [facility]; Protocol Last Admin: 08/13/18 17:30 Dose: 2 unit Losartan Potassium (Cozaar) 25 mg PO DAILY [facility] Last Admin: 08/13/18 10:11 Dose: 25 mg Metformin HCl (Glucophage) 500 mg PO BID [facility] Last Admin: 08/12/18 11:32 Dose: Not Given Methylprednisolone (Solu-Medrol) 20 mg IV Q12 [facility] Last Admin: 08/13/18 21:15 Dose: 20 mg Multivitamins (Hexavitamin) 1 tab PO DAILY [facility] Last Admin: 08/13/18 10:10 Dose: 1 tab Nystatin (Nystatin Oral Susp) 5 ml PO QID [facility] Last Admin: 08/13/18 21:16 Dose: 5 ml Rosuvastatin Calcium (Crestor) 5 mg PO HS [facility] Last Admin: 08/13/18 21:16 Dose: 5 mg Sitagliptin Phosphate (Januvia) 100 mg PO DAILY [facility] Last Admin: 08/13/18 10:11 Dose: 100 mg - Labs Labs: 08/12/18 07:22 08/12/18 07:22 PT 10.6 SECONDS (9.7-12.2) 08/12/18 07:22 INR 1.0 08/12/18 07:22 APTT 26 SECONDS (21-34) 08/11/18 20:17
--- NOTE | 2018-08-13 22:02 | PN ---
DATE: 08/13/2018 SUBJECTIVE: The patient is seen today, 08/13/2018. She is still coughing and there is some blood with sputum. PHYSICAL EXAMINATION: VITAL SIGNS: Blood pressure 118/51, temperature 97.9, respiratory rate 20, and pulse 87. HEENT: Pupils equal, reactive to light. Normal-appearing mucosa of the conjunctivae, oropharynx and nasal membrane mucosa. NECK: Supple. No JVD. No carotid bruit. No lymph node. No thyromegaly. CARDIOPULMONARY: PMI not localized. S1, S2. No additional sounds. CHEST: Lungs, bilateral symmetrical expansion. Good air exchange. No rales, but there is scattered rhonchi across both lung de la fuente. ABDOMEN: Normoactive bowel sounds. No tenderness. No organomegaly. No masses. EXTREMITIES: No cyanosis, no clubbing, no edema. 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 No neurological deficit could be appreciated. LABORATORY DATA: Cardiac catheterization was done that showed 90% ostial stenosis of the right coronary artery which was not amendable to treatment given the patient's general condition and Cardiology recommendations was medical treatment. ASSESSMENT: Exacerbation of chronic obstructive pulmonary disease, acute bronchitis with some hemoptysis, coronary artery disease - for medical treatment, type 2 diabetes mellitus, hypertension, smoker. PLAN: Physical therapy and continue current above medications and taper steroids as tolerated. We will also add Mycostatin to swish and swallow for hoarseness of voice and plan to discharge to Transitional Care Unit at [facility] after insurance authorization. Kd Ledesma MD
[2018-08-14] MEDS: Acetylcysteine 20% Inhal Soln (4ml) INH SCH ×4 (01:29→19:15)
[2018-08-14] MEDS: Albuterol-Ipratrop 3 mg / 0.5 (3 ml) UD INH SCH ×4 (01:30→19:15)
[2018-08-14] MEDS: (Novolog) Insulin Aspart, Recombinant 100 u/ml 10 ml vial SC SCH ×4 (08:52→22:21)
[2018-08-14] MEDS: Bisoprolol-HCTZ 5-6.25 mg Tab PO SCH (09:00)
[2018-08-14] MEDS: guaiFENesin 600 mg ER Tab PO SCH ×2 (09:00→17:22)
[2018-08-14] MEDS: Cilostazol 50 mg Tab UD PO SCH ×2 (09:00→17:22)
[2018-08-14] MEDS: Multiple Vitamins Tab PO SCH (09:00)
[2018-08-14] MEDS: MethylPREDNISolone 40 mg Vial IV SCH ×2 (09:01→23:00)
[2018-08-14] MEDS: Nystatin 100,000 Units/ml Oral Susp 5 ml UD PO SCH ×4 (09:01→21:22)
[2018-08-14] MEDS: Enoxaparin 40 mg Syringe SC SCH (09:01)
--- NOTE | 2018-08-14 14:34 | CP.PCM.PN ---
Subjective - Date & Time of Evaluation Date of Evaluation: 08/14/18 Time of Evaluation: 12:30 - Subjective Subjective: The patient seen and examined Patient is depressed Cough much improved Afebrile No chest pain Objective - Vital Signs/Intake and Output Vital Signs (last 24 hours): Temp Pulse Resp BP Pulse Ox 98.2 F 80 20 135/57 L 97 08/14/18 07:00 08/14/18 07:00 08/14/18 07:00 08/14/18 07:00 08/14/18 07:00 - Medications Medications: Current Medications Acetylcysteine (Acetylcysteine 20%) 2 ml INH RQ6 [facility] Last Admin: 08/14/18 13:20 Dose: 2 ml Albuterol/Ipratropium (Duoneb 3 Mg/0.5 Mg (3 Ml) Ud) 3 ml INH RQ6 [facility] Last Admin: 08/14/18 13:20 Dose: 3 ml Amlodipine Besylate (Norvasc) 5 mg PO DAILY [facility] Last Admin: 08/14/18 09:01 Dose: 5 mg Aspirin (Aspirin Chewable) 81 mg PO DAILY [facility] Last Admin: 08/14/18 09:00 Dose: 81 mg Benzonatate (Tessalon Perles) 100 mg PO TID [facility] Last Admin: 08/14/18 09:00 Dose: 100 mg Bisoprolol Fumarate/HCTZ (Ziac 5-6.25 Mg) 1 tab PO DAILY [facility] Last Admin: 08/14/18 09:00 Dose: 1 tab Cilostazol (Pletal) 50 mg PO BID [facility] Last Admin: 08/14/18 09:00 Dose: 50 mg Clopidogrel Bisulfate (Plavix) 75 mg PO DAILY [facility] Last Admin: 08/14/18 09:01 Dose: 75 mg Enoxaparin Sodium (Lovenox) 40 mg SC DAILY [facility] Last Admin: 08/14/18 09:01 Dose: 40 mg Guaifenesin (Mucinex La) 600 mg PO BID [facility] Last Admin: 08/14/18 09:00 Dose: 600 mg Insulin Aspart (Novolog) 0 unit SC [facility]; Protocol Last Admin: 08/14/18 14:28 Dose: 2 unit Losartan Potassium (Cozaar) 25 mg PO DAILY [facility] Last Admin: 08/14/18 09:00 Dose: 25 mg Metformin HCl (Glucophage) 500 mg PO BID [facility] Last Admin: 08/12/18 11:32 Dose: Not Given Methylprednisolone (Solu-Medrol) 20 mg IV Q12 [facility] Last Admin: 08/14/18 09:01 Dose: 20 mg Multivitamins (Hexavitamin) 1 tab PO DAILY [facility] Last Admin: 08/14/18 09:00 Dose: 1 tab Nystatin (Nystatin Oral Susp) 5 ml PO QID [facility] Last Admin: 08/14/18 14:27 Dose: 5 ml Rosuvastatin Calcium (Crestor) 5 mg PO HS [facility] Last Admin: 08/13/18 21:16 Dose: 5 mg Sitagliptin Phosphate (Januvia) 100 mg PO DAILY [facility] Last Admin: 08/14/18 09:00 Dose: 100 mg - Labs Labs: 08/12/18 07:22 08/12/18 07:22 PT 10.6 SECONDS (9.7-12.2) 08/12/18 07:22 INR 1.0 08/12/18 07:22 APTT 26 SECONDS (21-34) 08/11/18 20:17 - Head Exam Head Exam: ATRAUMATIC, NORMOCEPHALIC - ENT Exam ENT Exam: Mucous Membranes Moist - Respiratory Exam Respiratory Exam: Rales - Cardiovascular Exam Cardiovascular Exam: REGULAR RHYTHM - GI/Abdominal Exam GI & Abdominal Exam: Soft Assessment and Plan (1) COPD (chronic obstructive pulmonary disease) Assessment & Plan: CAT scan of the chest noted with emphysematous changes Continue present treatment Taper steroids Status post cardiac catheter Status: Acute
[2018-08-15] MEDS: Acetylcysteine 20% Inhal Soln (4ml) INH SCH ×4 (02:20→19:52)
[2018-08-15] MEDS: Albuterol-Ipratrop 3 mg / 0.5 (3 ml) UD INH SCH ×4 (02:20→19:52)
--- NOTE | 2018-08-15 03:59 | PN ---
DATE: 08/14/2018 SUBJECTIVE: The patient is seen today, 08/14/2018. She is not in any decrease of shortness of breath and cough. OBJECTIVE: VITAL SIGNS: Blood pressure is 135/57, temperature 98.2, respiratory rate 20, and pulse 80. HEENT: Pupils equal and reactive to light. Normal-appearing mucosa of the conjunctivae, oropharynx, and nasal membrane mucosa. NECK: Supple. No JVD. No carotid bruit. No lymph node. No thyromegaly. CHEST AND LUNGS: Bilateral symmetrical expansion. Good air exchange. No rales. Scattered rhonchi bilaterally. CARDIOVASCULAR SYSTEM: PMI not localized. S1, S2. No additional sounds. ABDOMEN: Normoactive bowel sounds. No tenderness. No organomegaly. No masses. EXTREMITIES: No cyanosis, no clubbing, no edema. PATTERNATOR: Alert, awake, oriented x2. No neurological deficit could be appreciated. ASSESSMENT: Exacerbation of chronic obstructive pulmonary disease, coronary artery disease, status post cardiac cath and no intervention is needed at this point; type 2 diabetes mellitus; hypertension. PLAN: Continue current medications and taper steroids as tolerated. Physical therapy and for possible discharge to transitional care unit. Kd Ledesma MD
[2018-08-15] MEDS: (Novolog) Insulin Aspart, Recombinant 100 u/ml 10 ml vial SC SCH ×4 (08:47→21:57)
[2018-08-15] MEDS: Multiple Vitamins Tab PO SCH (09:40)
[2018-08-15] MEDS: Nystatin 100,000 Units/ml Oral Susp 5 ml UD PO SCH ×4 (09:40→21:57)
[2018-08-15] MEDS: guaiFENesin 600 mg ER Tab PO SCH ×2 (09:40→18:48)
[2018-08-15] MEDS: Cilostazol 50 mg Tab UD PO SCH ×2 (09:41→18:47)
[2018-08-15] MEDS: Bisoprolol-HCTZ 5-6.25 mg Tab PO SCH (09:41)
[2018-08-15] MEDS: MethylPREDNISolone 40 mg Vial IV SCH ×2 (09:41→21:56)
[2018-08-15] MEDS: Enoxaparin 40 mg Syringe SC SCH (09:41)
--- NOTE | 2018-08-15 20:38 | CP.PCM.PN ---
Subjective - Date & Time of Evaluation Date of Evaluation: 08/15/18 Time of Evaluation: 19:20 - Subjective Subjective: patient seen and examined Condition much improved Much less cough Afebrile Status post cardiac catheter with triple-vessel disease Objective - Vital Signs/Intake and Output Vital Signs (last 24 hours): Temp Pulse Resp BP Pulse Ox 99 F 83 20 120/60 96 08/15/18 15:00 08/15/18 15:00 08/15/18 15:00 08/15/18 15:00 08/15/18 15:00 Intake and Output: 08/15/18 08/16/18 18:59 06:59 Intake Total 300 Balance 300 - Medications Medications: Current Medications Acetylcysteine (Acetylcysteine 20%) 2 ml INH RQ6 [facility] Last Admin: 08/15/18 19:52 Dose: 2 ml Albuterol/Ipratropium (Duoneb 3 Mg/0.5 Mg (3 Ml) Ud) 3 ml INH RQ6 [facility] Last Admin: 08/15/18 19:52 Dose: 3 ml Amlodipine Besylate (Norvasc) 5 mg PO DAILY [facility] Last Admin: 08/15/18 09:40 Dose: 5 mg Aspirin (Aspirin Chewable) 81 mg PO DAILY [facility] Last Admin: 08/15/18 09:40 Dose: 81 mg Benzonatate (Tessalon Perles) 100 mg PO TID [facility] Last Admin: 08/15/18 18:48 Dose: 100 mg Bisoprolol Fumarate/HCTZ (Ziac 5-6.25 Mg) 1 tab PO DAILY [facility] Last Admin: 08/15/18 09:41 Dose: 1 tab Cilostazol (Pletal) 50 mg PO BID [facility] Last Admin: 08/15/18 18:47 Dose: 50 mg Clopidogrel Bisulfate (Plavix) 75 mg PO DAILY [facility] Last Admin: 08/15/18 09:40 Dose: 75 mg Enoxaparin Sodium (Lovenox) 40 mg SC DAILY [facility] Last Admin: 08/15/18 09:41 Dose: 40 mg Guaifenesin (Mucinex La) 600 mg PO BID [facility] Last Admin: 08/15/18 18:48 Dose: 600 mg Insulin Aspart (Novolog) 0 unit SC [facility]; Protocol Last Admin: 08/15/18 18:48 Dose: 5 unit Losartan Potassium (Cozaar) 25 mg PO DAILY [facility] Last Admin: 08/15/18 09:40 Dose: 25 mg Metformin HCl (Glucophage) 500 mg PO BID [facility] Last Admin: 08/12/18 11:32 Dose: Not Given Methylprednisolone (Solu-Medrol) 20 mg IV Q12 [facility] Last Admin: 08/15/18 09:41 Dose: 20 mg Multivitamins (Hexavitamin) 1 tab PO DAILY [facility] Last Admin: 08/15/18 09:40 Dose: 1 tab Nystatin (Nystatin Oral Susp) 5 ml PO QID [facility] Last Admin: 08/15/18 18:47 Dose: 5 ml Rosuvastatin Calcium (Crestor) 5 mg PO HS [facility] Last Admin: 08/14/18 21:22 Dose: 5 mg Sitagliptin Phosphate (Januvia) 100 mg PO DAILY [facility] Last Admin: 08/15/18 09:40 Dose: 100 mg - Labs Labs: 08/12/18 07:22 08/12/18 07:22 PT 10.6 SECONDS (9.7-12.2) 08/12/18 07:22 INR 1.0 08/12/18 07:22 APTT 26 SECONDS (21-34) 08/11/18 20:17 - Head Exam Head Exam: ATRAUMATIC, NORMOCEPHALIC - Eye Exam Eye Exam: Normal appearance - ENT Exam ENT Exam: Mucous Membranes Moist - Respiratory Exam Respiratory Exam: Clear to Ausculation Bilateral - Cardiovascular Exam Cardiovascular Exam: REGULAR RHYTHM - GI/Abdominal Exam GI & Abdominal Exam: Soft, Normal Bowel Sounds Assessment and Plan (1) COPD (chronic obstructive pulmonary disease) Assessment & Plan: p.o. prednisone Nebulizer treatment P.o. antibiotics Status: Acute
[2018-08-16] MEDS: Albuterol-Ipratrop 3 mg / 0.5 (3 ml) UD INH SCH ×3 (02:05→13:59)
[2018-08-16] MEDS: Acetylcysteine 20% Inhal Soln (4ml) INH SCH ×5 (02:05→21:13)
[2018-08-16] MEDS: (Novolog) Insulin Aspart, Recombinant 100 u/ml 10 ml vial SC SCH ×4 (08:17→21:33)
[2018-08-16] MEDS: MethylPREDNISolone 40 mg Vial IV SCH (10:01)
[2018-08-16] MEDS: Enoxaparin 40 mg Syringe SC SCH (10:01)
[2018-08-16] MEDS: Nystatin 100,000 Units/ml Oral Susp 5 ml UD PO SCH ×4 (10:01→22:14)
[2018-08-16] MEDS: Multiple Vitamins Tab PO SCH (10:01)
[2018-08-16] MEDS: Bisoprolol-HCTZ 5-6.25 mg Tab PO SCH (10:02)
[2018-08-16] MEDS: Cilostazol 50 mg Tab UD PO SCH ×2 (10:02→17:59)
[2018-08-16] MEDS: guaiFENesin 600 mg ER Tab PO SCH ×2 (10:03→18:00)
--- NOTE | 2018-08-16 12:09 | CARDCATH ---
PROCEDURE DATE: 08/12/2018 PROCEDURES: 1. Left heart catheterization. 2. Coronary angiogram. CLINICAL INDICATIONS: 1. Status post cardiac arrest. 2. Coronary artery disease. 3. Hypertension. 4. COPD. 5. Hyperlipidemia. 6. Peripheral arterial disease, status post peripheral vascular bypass. 7. Preop cardiac risk assessment. REFERRING PHYSICIAN: PERFORMING PHYSICIAN: Alejo Logan MD PROCEDURE: After informed consent, the patient was prepped and draped in the usual sterile fashion. Since the patient has severe peripheral vascular disease and vascular bypass, radial access was chosen. A 6-Indonesian radial sheath was introduced into the right radial artery. JR4 6-Indonesian diagnostic catheter crossed into left ventricle across the aortic valve. Contrast injected and LV angiogram was done. The catheter was pulled back. Gradient across the aortic valve was measured. Then, the same catheter engaged into right coronary artery. Contrast injected and right coronary angiogram was done. JL4 diagnostic catheter engaged into left main coronary artery. Contrast injected and left coronary angiogram was done. FINDINGS: 1. Left main coronary artery has mild disease. 2. Proximal LAD has a 90% calcific disease. Mid and distal LAD is patent. Diagonal branches are patent. 3. Left circumflex has mild disease. 4. Right coronary artery is a dominant artery. There is a proximal calcific 90% stenosis. LV ejection fraction is approximately 60%. There is moderate aortic stenosis. CONCLUSION: Calcific coronary artery disease. Calcific ascending aorta. Since the patient's fragility and severe lung disease, high risk for coronary intervention atherectomy or coronary artery bypass grafting. The patient does not have a reasonable groin access and so I recommend medical therapy for now. Alejo Logan MD
--- NOTE | 2018-08-16 14:53 | CP.PCM.PN ---
Subjective - Date & Time of Evaluation Date of Evaluation: 08/16/18 Time of Evaluation: 09:45 - Subjective Subjective: Patient was seen and examined at bedside, sitting comfortably in bed. Afebrile and in no acute distress. Patient reports she is feeling well overall. Reports cough and SOB are improving. Denies chest pain. Patient currently stable and medical condition improving, can be discharged PLAN - Will transition patient from IV to PO steroids - Continue home nebulizer therapy as needed. - Follow up with Local [employer]er Truck Driver / PMD 1-2 after discharge. Objective - Vital Signs/Intake and Output Vital Signs (last 24 hours): Temp Pulse Resp BP Pulse Ox 98.2 F 96 H 20 134/52 L 100 08/16/18 08:10 08/16/18 12:00 08/16/18 08:10 08/16/18 08:10 08/16/18 08:10 - Medications Medications: Current Medications Acetylcysteine (Acetylcysteine 20%) 2 ml INH RQ6 [facility] Last Admin: 08/16/18 13:59 Dose: 2 ml Albuterol/Ipratropium (Duoneb 3 Mg/0.5 Mg (3 Ml) Ud) 3 ml INH RQ6 [facility] Last Admin: 08/16/18 13:59 Dose: 3 ml Amlodipine Besylate (Norvasc) 5 mg PO DAILY [facility] Last Admin: 08/16/18 10:00 Dose: 5 mg Aspirin (Aspirin Chewable) 81 mg PO DAILY [facility] Last Admin: 08/16/18 10:01 Dose: 81 mg Benzonatate (Tessalon Perles) 100 mg PO TID [facility] Last Admin: 08/16/18 13:22 Dose: 100 mg Bisoprolol Fumarate/HCTZ (Ziac 5-6.25 Mg) 1 tab PO DAILY [facility] Last Admin: 08/16/18 10:02 Dose: 1 tab Cilostazol (Pletal) 50 mg PO BID [facility] Last Admin: 08/16/18 10:02 Dose: 50 mg Clopidogrel Bisulfate (Plavix) 75 mg PO DAILY [facility] Last Admin: 08/16/18 10:00 Dose: 75 mg Enoxaparin Sodium (Lovenox) 40 mg SC DAILY [facility] Last Admin: 08/16/18 10:01 Dose: 40 mg Guaifenesin (Mucinex La) 600 mg PO BID [facility] Last Admin: 08/16/18 10:03 Dose: 600 mg Insulin Aspart (Novolog) 0 unit SC [facility]; Protocol Last Admin: 08/16/18 12:05 Dose: 3 unit Losartan Potassium (Cozaar) 25 mg PO DAILY [facility] Last Admin: 08/16/18 10:01 Dose: 25 mg Metformin HCl (Glucophage) 500 mg PO BID [facility] Last Admin: 08/12/18 11:32 Dose: Not Given Methylprednisolone (Solu-Medrol) 20 mg IV Q12 [facility] Last Admin: 08/16/18 10:01 Dose: 20 mg Multivitamins (Hexavitamin) 1 tab PO DAILY [facility] Last Admin: 08/16/18 10:01 Dose: 1 tab Nystatin (Nystatin Oral Susp) 5 ml PO QID [facility] Last Admin: 08/16/18 13:22 Dose: 5 ml Rosuvastatin Calcium (Crestor) 5 mg PO HS [facility] Last Admin: 08/15/18 21:56 Dose: 5 mg Sitagliptin Phosphate (Januvia) 100 mg PO DAILY [facility] Last Admin: 08/16/18 10:01 Dose: 100 mg - Labs Labs: 08/12/18 07:22 08/12/18 07:22 PT 10.6 SECONDS (9.7-12.2) 08/12/18 07:22 INR 1.0 08/12/18 07:22 APTT 26 SECONDS (21-34) 08/11/18 20:17 Assessment and Plan (1) COPD (chronic obstructive pulmonary disease) Status: Acute
--- NOTE | 2018-08-17 02:28 | PN ---
DATE: 08/16/2018 SUBJECTIVE: The patient is seen today, 08/16/2018. She is having less cough and shortness of breath. OBJECTIVE: VITAL SIGNS: Blood pressure is 134/52, temperature 98.2, respiratory rate 20, and pulse 87. HEENT: Pupils equal and reactive to light. Normal-appearing mucosa of the conjunctivae, oropharynx, and nasal membrane mucosa. NECK: Supple. No JVD. No carotid bruits. No lymph node. No thyromegaly. CHEST AND LUNGS: Bilateral symmetrical expansion. Good air exchange. No rales, no rhonchi. CARDIOVASCULAR SYSTEM: PMI not localized. S1, S2. No additional sounds. ABDOMEN: Normoactive bowel sounds. No tenderness. No organomegaly. No masses. EXTREMITIES: No cyanosis, no clubbing, no edema. BANK CLERK: Alert, awake, oriented x2. No neurological deficit could be appreciated. ASSESSMENT: Exacerbation of chronic obstructive pulmonary disease, acute bronchitis, coronary artery disease, hypertension, type 2 diabetes mellitus, peripheral vascular disease. PLAN: Continue current medications and decision was to have medical management. The patient is scheduled to be discharged tomorrow morning. Kd Ledesma MD
[2018-08-17] MEDS: Acetylcysteine 20% Inhal Soln (4ml) INH SCH ×2 (03:25→08:04)
[2018-08-17 06:32] LABS: BASO % 0.2 % (0.0-2.0); EOS # 0.2 K/uL (0.0-0.7); EOS % 1.5 % (0.0-4.0); HEMOGLOBIN 7.8 g/dL (11.0-16.0); LYMPH # 2.3 K/uL (1.0-4.3); LYMPH % 15.4 % (20.0-40.0); MEAN CELL VOLUME 86.7 fL (81.0-99.0); MEAN CORPUSCULAR HEMOGLOBIN 28.3 pg (27.0-31.0); MEAN CORPUSCULAR HGB CONC 32.6 g/dL (33.0-37.0); MEAN PLATELET VOLUME 8.1 fL (7.2-11.7); MONO # 1.3 K/uL (0.0-0.8); MONO % 8.4 % (0.0-10.0); NEUT # 11.1 K/uL (1.8-7.0); NEUT % 74.5 % (50.0-75.0); RBC 2.76 Mil/uL (3.80-5.20); RED CELL DISTRIBUTION WIDTH 16.8 % (11.5-14.5); WHITE BLOOD COUNT 14.9 K/uL (4.8-10.8)
[2018-08-17 07:40] LABS: BLOOD UREA NITROGEN 20 mg/dL (7-17); CALCIUM 9.9 mg/dl (8.6-10.4); GFR NON-AFRICAN AMERICAN > 60
[2018-08-17] MEDS: (Novolog) Insulin Aspart, Recombinant 100 u/ml 10 ml vial SC SCH ×3 (07:52→21:43)
[2018-08-17] MEDS: Multiple Vitamins Tab PO SCH (09:40)
[2018-08-17] MEDS: Cilostazol 50 mg Tab UD PO SCH ×2 (09:40→17:47)
[2018-08-17] MEDS: Nystatin 100,000 Units/ml Oral Susp 5 ml UD PO SCH ×4 (09:40→22:03)
[2018-08-17] MEDS: guaiFENesin 600 mg ER Tab PO SCH ×2 (09:40→17:47)
[2018-08-17] MEDS: Bisoprolol-HCTZ 5-6.25 mg Tab PO SCH (09:40)
[2018-08-17] MEDS: Enoxaparin 40 mg Syringe SC SCH (09:41)
--- NOTE | 2018-08-17 14:56 | CP.PCM.PN ---
Subjective - Date & Time of Evaluation Date of Evaluation: 08/17/18 Time of Evaluation: 14:54 - Subjective Subjective: PT SEEN BY DR. BARTH THIS AFTERNOON. LABS REVIEWED WITH DR. BARTH; HGB 7.8. PT TO RECEIVE 1 UNIT OF PRBC TODAY; REPEAT CBC ORDERED FOR TOMORROW MORNING. I DISCUSSED THE TRANSFUSION WITH PT AND SHE VERBALIZES UNDERSTANDING OF THE BENEFI TS AND REACTION SYMPTOMS. ALL QUESTIONS ADDRESSED. WILL F/U WITH PT IN THE MORNING AND POSS D/C TOMORROW IF HGB IMPROVES AND IF PT IS STABLE. Objective - Vital Signs/Intake and Output Vital Signs (last 24 hours): Temp Pulse Resp BP Pulse Ox 98.2 F 75 20 147/57 L 100 08/17/18 07:00 08/17/18 07:00 08/17/18 07:00 08/17/18 07:00 08/17/18 07:00 - Medications Medications: Current Medications Acetylcysteine (Acetylcysteine 20%) 2 ml INH RQ6 [facility] Last Admin: 08/17/18 08:04 Dose: Not Given Amlodipine Besylate (Norvasc) 5 mg PO DAILY [facility] Last Admin: 08/17/18 09:40 Dose: 5 mg Aspirin (Aspirin Chewable) 81 mg PO DAILY [facility] Last Admin: 08/17/18 09:39 Dose: 81 mg Benzonatate (Tessalon Perles) 100 mg PO TID [facility] Last Admin: 08/17/18 13:45 Dose: 100 mg Bisoprolol Fumarate/HCTZ (Ziac 5-6.25 Mg) 1 tab PO DAILY [facility] Last Admin: 08/17/18 09:40 Dose: 1 tab Cilostazol (Pletal) 50 mg PO BID [facility] Last Admin: 08/17/18 09:40 Dose: 50 mg Clopidogrel Bisulfate (Plavix) 75 mg PO DAILY [facility] Last Admin: 08/17/18 09:39 Dose: 75 mg Enoxaparin Sodium (Lovenox) 40 mg SC DAILY [facility] Last Admin: 08/17/18 09:41 Dose: 40 mg Guaifenesin (Mucinex La) 600 mg PO BID [facility] Last Admin: 08/17/18 09:40 Dose: 600 mg Insulin Aspart (Novolog) 0 unit SC ACHS [facility]; Protocol Last Admin: 08/17/18 12:44 Dose: 6 unit Losartan Potassium (Cozaar) 25 mg PO DAILY [facility] Last Admin: 08/17/18 09:38 Dose: 25 mg Metformin HCl (Glucophage) 500 mg PO BID [facility] Last Admin: 08/17/18 09:38 Dose: 500 mg Multivitamins (Hexavitamin) 1 tab PO DAILY [facility] Last Admin: 08/17/18 09:40 Dose: 1 tab Nystatin (Nystatin Oral Susp) 5 ml PO QID [facility] Last Admin: 08/17/18 13:45 Dose: 5 ml Prednisone (Prednisone Tab) 10 mg PO DAILY [facility] Last Admin: 08/17/18 09:39 Dose: 10 mg Rosuvastatin Calcium (Crestor) 5 mg PO HS [facility] Last Admin: 08/16/18 22:14 Dose: 5 mg Sitagliptin Phosphate (Januvia) 100 mg PO DAILY [facility] Last Admin: 08/17/18 09:50 Dose: 100 mg - Labs Labs: 08/17/18 06:23 08/17/18 06:23 PT 10.6 SECONDS (9.7-12.2) 08/12/18 07:22 INR 1.0 08/12/18 07:22 APTT 26 SECONDS (21-34) 08/11/18 20:17
--- NOTE | 2018-08-17 16:13 | CP.PCM.PN ---
Subjective - Date & Time of Evaluation Date of Evaluation: 08/17/18 Time of Evaluation: 11:00 - Subjective Subjective: Patient was seen and examined at bedside. Afebrile and in no acute distress. Reports SOB greatly improved. Cough is persistent but better than initial presentation. Denies chest pain, chest tightness. Objective - Vital Signs/Intake and Output Vital Signs (last 24 hours): Temp Pulse Resp BP Pulse Ox 98.2 F 82 20 104/50 L 97 08/17/18 15:00 08/17/18 15:00 08/17/18 15:00 08/17/18 15:00 08/17/18 15:00 - Medications Medications: Current Medications Acetylcysteine (Acetylcysteine 20%) 2 ml INH RQ6 [facility] Last Admin: 08/17/18 08:04 Dose: Not Given Amlodipine Besylate (Norvasc) 5 mg PO DAILY [facility] Last Admin: 08/17/18 09:40 Dose: 5 mg Aspirin (Aspirin Chewable) 81 mg PO DAILY [facility] Last Admin: 08/17/18 09:39 Dose: 81 mg Benzonatate (Tessalon Perles) 100 mg PO TID [facility] Last Admin: 08/17/18 13:45 Dose: 100 mg Bisoprolol Fumarate/HCTZ (Ziac 5-6.25 Mg) 1 tab PO DAILY [facility] Last Admin: 08/17/18 09:40 Dose: 1 tab Cilostazol (Pletal) 50 mg PO BID [facility] Last Admin: 08/17/18 09:40 Dose: 50 mg Clopidogrel Bisulfate (Plavix) 75 mg PO DAILY [facility] Last Admin: 08/17/18 09:39 Dose: 75 mg Enoxaparin Sodium (Lovenox) 40 mg SC DAILY [facility] Last Admin: 08/17/18 09:41 Dose: 40 mg Guaifenesin (Mucinex La) 600 mg PO BID [facility] Last Admin: 08/17/18 09:40 Dose: 600 mg Insulin Aspart (Novolog) 0 unit SC [facility]; Protocol Last Admin: 08/17/18 12:44 Dose: 6 unit Losartan Potassium (Cozaar) 25 mg PO DAILY [facility] Last Admin: 08/17/18 09:38 Dose: 25 mg Metformin HCl (Glucophage) 500 mg PO BID [facility] Last Admin: 08/17/18 09:38 Dose: 500 mg Multivitamins (Hexavitamin) 1 tab PO DAILY [facility] Last Admin: 08/17/18 09:40 Dose: 1 tab Nystatin (Nystatin Oral Susp) 5 ml PO QID [facility] Last Admin: 08/17/18 13:45 Dose: 5 ml Prednisone (Prednisone Tab) 10 mg PO DAILY [facility] Last Admin: 08/17/18 09:39 Dose: 10 mg Rosuvastatin Calcium (Crestor) 5 mg PO HS [facility] Last Admin: 08/16/18 22:14 Dose: 5 mg Sitagliptin Phosphate (Januvia) 100 mg PO DAILY [facility] Last Admin: 08/17/18 09:50 Dose: 100 mg - Labs Labs: 08/17/18 06:23 08/17/18 06:23 PT 10.6 SECONDS (9.7-12.2) 08/12/18 07:22 INR 1.0 08/12/18 07:22 APTT 26 SECONDS (21-34) 08/11/18 20:17
--- NOTE | 2018-08-17 23:59 | CP.PCM.PN ---
Subjective - Date & Time of Evaluation Date of Evaluation: 08/17/18 Time of Evaluation: 08:05 - Subjective Subjective: Patient see and evaluated denies chest pain and dyspnea Medical management for CAD Objective - Vital Signs/Intake and Output Vital Signs (last 24 hours): Temp Pulse Resp BP Pulse Ox 97 F L 73 17 140/56 L 97 08/17/18 22:06 08/17/18 22:06 08/17/18 22:06 08/17/18 22:06 08/17/18 15:00 Intake and Output: 08/17/18 08/18/18 18:59 06:59 Intake Total 750 Balance 750 - Medications Medications: Current Medications Acetylcysteine (Acetylcysteine 20%) 2 ml INH RQ6 [facility] Last Admin: 08/17/18 08:04 Dose: Not Given Amlodipine Besylate (Norvasc) 5 mg PO DAILY [facility] Last Admin: 08/17/18 09:40 Dose: 5 mg Aspirin (Aspirin Chewable) 81 mg PO DAILY [facility] Last Admin: 08/17/18 09:39 Dose: 81 mg Benzonatate (Tessalon Perles) 100 mg PO TID [facility] Last Admin: 08/17/18 17:47 Dose: 100 mg Bisoprolol Fumarate/HCTZ (Ziac 5-6.25 Mg) 1 tab PO DAILY [facility] Last Admin: 08/17/18 09:40 Dose: 1 tab Cilostazol (Pletal) 50 mg PO BID [facility] Last Admin: 08/17/18 17:47 Dose: 50 mg Clopidogrel Bisulfate (Plavix) 75 mg PO DAILY [facility] Last Admin: 08/17/18 09:39 Dose: 75 mg Enoxaparin Sodium (Lovenox) 40 mg SC DAILY [facility] Last Admin: 08/17/18 09:41 Dose: 40 mg Guaifenesin (Mucinex La) 600 mg PO BID [facility] Last Admin: 08/17/18 17:47 Dose: 600 mg Insulin Aspart (Novolog) 0 unit SC [facility]; Protocol Last Admin: 08/17/18 21:43 Dose: Not Given Losartan Potassium (Cozaar) 25 mg PO DAILY [facility] Last Admin: 08/17/18 09:38 Dose: 25 mg Metformin HCl (Glucophage) 500 mg PO BID [facility] Last Admin: 08/17/18 17:46 Dose: 500 mg Multivitamins (Hexavitamin) 1 tab PO DAILY [facility] Last Admin: 08/17/18 09:40 Dose: 1 tab Nystatin (Nystatin Oral Susp) 5 ml PO QID [facility] Last Admin: 08/17/18 22:03 Dose: 5 ml Prednisone (Prednisone Tab) 10 mg PO DAILY [facility] Last Admin: 08/17/18 09:39 Dose: 10 mg Rosuvastatin Calcium (Crestor) 5 mg PO HS [facility] Last Admin: 08/17/18 22:03 Dose: 5 mg Sitagliptin Phosphate (Januvia) 100 mg PO DAILY [facility] Last Admin: 08/17/18 09:50 Dose: 100 mg - Labs Labs: 08/17/18 06:23 08/17/18 06:23 PT 10.6 SECONDS (9.7-12.2) 08/12/18 07:22 INR 1.0 08/12/18 07:22 APTT 26 SECONDS (21-34) 08/11/18 20:17
[2018-08-18 00:27] VITALS: RESP 20
--- NOTE | 2018-08-18 00:38 | PN ---
DATE: 08/17/2018 SUBJECTIVE: The patient is seen today, 08/17/2018. She is not in any cardiopulmonary distress. PHYSICAL EXAMINATION: VITAL SIGNS: Blood pressure 128/52, temperature 98, respiratory rate 18, and pulse 76. HEENT: Pale mucosa of the conjunctivae. NECK: Supple. No JVD. No carotid bruit. No lymph node. No thyromegaly. CHEST AND LUNGS: Bilateral symmetrical expansion. Good air exchange. No rales. No rhonchi. CARDIOVASCULAR SYSTEM: PMI not localized. S1, S2. No additional sounds. CENTRAL NERVOUS SYSTEM: Alert, awake, oriented x2. Moves all extremities equally. ASSESSMENT: Exacerbation of chronic obstructive pulmonary disease; acute bronchitis; coronary artery disease; and anemia of acute blood loss, dropped, after improving, is likely multifactorial. PLAN: We will transfuse 1 unit of packed RBCs. Continue current medications. Once hemoglobin is stable, we will discharge. Kd Ledesma MD
[2018-08-18] MEDS: Acetylcysteine 20% Inhal Soln (4ml) INH SCH ×3 (02:44→14:00)
[2018-08-18 06:44] LABS: HEMOGLOBIN 9.1 g/dL (11.0-16.0); MEAN CELL VOLUME 85.4 fL (81.0-99.0); MEAN CORPUSCULAR HEMOGLOBIN 28.2 pg (27.0-31.0); RBC 3.24 Mil/uL (3.80-5.20); RED CELL DISTRIBUTION WIDTH 17.1 % (11.5-14.5); WHITE BLOOD COUNT 14.1 K/uL (4.8-10.8)
[2018-08-18] MEDS: guaiFENesin 600 mg ER Tab PO SCH (11:12)
[2018-08-18] MEDS: Nystatin 100,000 Units/ml Oral Susp 5 ml UD PO SCH (11:12)
[2018-08-18] MEDS: Multiple Vitamins Tab PO SCH (11:13)
[2018-08-18] MEDS: Bisoprolol-HCTZ 5-6.25 mg Tab PO SCH (11:14)
[2018-08-18] MEDS: Enoxaparin 40 mg Syringe SC SCH (11:14)
[2018-08-18] MEDS: Cilostazol 50 mg Tab UD PO SCH (11:15)
--- NOTE | 2018-08-18 15:30 | CP.PCM.PN ---
Subjective - Date & Time of Evaluation Date of Evaluation: 08/18/18 Time of Evaluation: 14:20 - Subjective Subjective: Patient was seen and examined at bedside. Afebrile and in no acute distress. S/p transfusion of 1 unit of RBCs. Hemoglobin today 9.1 Reports feeling well overall. Mild SOB and cough, overall improving. Objective - Vital Signs/Intake and Output Vital Signs (last 24 hours): Temp Pulse Resp BP Pulse Ox 98.5 F 74 20 158/57 H 98 08/18/18 07:00 08/18/18 07:00 08/18/18 07:00 08/18/18 07:00 08/18/18 07:00 Intake and Output: 08/18/18 08/18/18 06:59 18:59 Intake Total 750 Balance 750 - Medications Medications: Current Medications Acetylcysteine (Acetylcysteine 20%) 2 ml INH RQ6 [facility] Last Admin: 08/18/18 14:00 Dose: 2 ml Amlodipine Besylate (Norvasc) 5 mg PO DAILY [facility] Last Admin: 08/18/18 11:13 Dose: 5 mg Aspirin (Aspirin Chewable) 81 mg PO DAILY [facility] Last Admin: 08/18/18 11:13 Dose: 81 mg Benzonatate (Tessalon Perles) 100 mg PO TID [facility] Last Admin: 08/18/18 11:13 Dose: 100 mg Bisoprolol Fumarate/HCTZ (Ziac 5-6.25 Mg) 1 tab PO DAILY [facility] Last Admin: 08/18/18 11:14 Dose: 1 tab Cilostazol (Pletal) 50 mg PO BID [facility] Last Admin: 08/18/18 11:15 Dose: 50 mg Clopidogrel Bisulfate (Plavix) 75 mg PO DAILY [facility] Last Admin: 08/18/18 11:13 Dose: 75 mg Guaifenesin (Mucinex La) 600 mg PO BID [facility] Last Admin: 08/18/18 11:12 Dose: 600 mg Insulin Aspart (Novolog) 0 unit SC [facility]; Protocol Last Admin: 08/17/18 21:43 Dose: Not Given Losartan Potassium (Cozaar) 25 mg PO DAILY [facility] Last Admin: 08/17/18 09:38 Dose: 25 mg Metformin HCl (Glucophage) 500 mg PO BID [facility] Last Admin: 08/18/18 11:14 Dose: 500 mg Multivitamins (Hexavitamin) 1 tab PO DAILY [facility] Last Admin: 08/18/18 11:13 Dose: 1 tab Nystatin (Nystatin Oral Susp) 5 ml PO QID [facility] Last Admin: 08/18/18 11:12 Dose: 5 ml Prednisone (Prednisone Tab) 10 mg PO DAILY [facility] Last Admin: 08/18/18 11:13 Dose: 10 mg Rosuvastatin Calcium (Crestor) 5 mg PO HS [facility] Last Admin: 08/17/18 22:03 Dose: 5 mg Sitagliptin Phosphate (Januvia) 100 mg PO DAILY [facility] Last Admin: 08/18/18 11:13 Dose: 100 mg - Labs Labs: 08/18/18 06:35 08/17/18 06:23 PT 10.6 SECONDS (9.7-12.2) 08/12/18 07:22 INR 1.0 08/12/18 07:22 APTT 26 SECONDS (21-34) 08/11/18 20:17
[2018-08-18 15:48] VITALS: BP 150/67; PULSE 85; TEMP 98; O2SAT 100
--- NOTE | 2018-08-19 04:31 | DS ---
REASON FOR ADMISSION: This is a 73-year-old -[place] female with a history of multiple medical problems, who was admitted for exacerbation of chronic obstructive pulmonary disease with acute bronchitis. COURSE OF HOSPITALIZATION: The patient was admitted to telemetry floor and she was started on both bronchodilators and IV steroids and antibiotics. The patient's stay was complicated with chest pain and she had a cardiology consultation done by Dr. Logan. The patient was found to have 90% ostial stenosis of the right coronary artery and medical treatment was chosen for the same. The patient was discharged home on triple antiplatelet therapy of clopidogrel, aspirin and cilostazol; to continue current medications and follow up with Cardiology as well as with primary care physician. FINAL DIAGNOSES: Exacerbation of chronic obstructive pulmonary disease, acute bronchitis, coronary artery disease, hypertension, type 2 diabetes mellitus, peripheral vascular disease. Kd Ledesma MD
== END 2018-08-18 16:11 | disposition home or self-care (01) | DRG 190 ==
LOC: C.ER 14:13 → C.9E 15:42 → C.6T 18:56
PROVIDERS: ADMIT Internal Medicine; ATTEND Internal Medicine
PROC: 4A023N7 Measurement of Cardiac Sampling and Pressure, Left Heart, Percutaneous Approach (ICD-10-PCS; principal; 2018-08-12)
PROC: B2111ZZ Fluoroscopy of Multiple Coronary Arteries using Low Osmolar Contrast (ICD-10-PCS; 2018-08-12)
PROC: B2151ZZ Fluoroscopy of Left Heart using Low Osmolar Contrast (ICD-10-PCS; 2018-08-12)
DX: J44.0 Chronic obstructive pulmonary disease with (acute) lower respiratory infection (principal); I21.4 Non-ST elevation (NSTEMI) myocardial infarction; D62 Acute posthemorrhagic anemia; J20.9 Acute bronchitis, unspecified; I25.10 Atherosclerotic heart disease of native coronary artery without angina pectoris; I10 Essential (primary) hypertension; F32.9 Major depressive disorder, single episode, unspecified; I35.0 Nonrheumatic aortic (valve) stenosis; M81.0 Age-related osteoporosis without current pathological fracture; E78.5 Hyperlipidemia, unspecified; F17.200 Nicotine dependence, unspecified, uncomplicated; J44.1 Chronic obstructive pulmonary disease with (acute) exacerbation; M54.40 Lumbago with sciatica, unspecified side; E11.649 Type 2 diabetes mellitus with hypoglycemia without coma; E11.51 Type 2 diabetes mellitus with diabetic peripheral angiopathy without gangrene

== ENCOUNTER 2018-10-07 15:04 | Inpatient (IN) | payer MEDICARE ==
[2018-10-07 15:04] VITALS: BMI 22.5
[2018-10-07 16:11] LABS: BASO # 0.1 K/uL (0.0-0.2); BASO % 0.7 % (0.0-2.0); EOS # 0.1 K/uL (0.0-0.7); EOS % 0.9 % (0.0-4.0); HEMOGLOBIN 7.7 g/dL (11.0-16.0); LYMPH # 1.6 K/uL (1.0-4.3); LYMPH % 13.5 % (20.0-40.0); MEAN CORPUSCULAR HEMOGLOBIN 29.9 pg (27.0-31.0); MEAN CORPUSCULAR HGB CONC 33.2 g/dL (33.0-37.0); MEAN PLATELET VOLUME 7.6 fL (7.2-11.7); MONO % 8.1 % (0.0-10.0); NEUT % 76.8 % (50.0-75.0); RBC 2.58 Mil/uL (3.80-5.20); RED CELL DISTRIBUTION WIDTH 17.6 % (11.5-14.5); WHITE BLOOD COUNT 11.7 K/uL (4.8-10.8)
--- NOTE | 2018-10-07 16:11 | C.PDOC ---
History Of Present Illness 73 year old female with a PMHx. of diabetes, hypertension, osteoporosis, CAD, PVD, COPD, and hyperlipidemia was sent to the ED by PMD Dr. Ledesma for evaluation of black stool associated with abdominal pain for 3 days. Abdominal pain is achey and generalized, R>L. The patient reports feeling bloated, with multiple episodes of diarrhea with black bowel movements. No bowl movements today but has been able to pass flatulence. She notes vomiting and dry heaving after attempting to eat solids or drink liquids. Decreased PO intake. Denies fever, chills, chest pain, palpitations, diaphoresis, SOB, weakness, paresthesias, numbness, back pain, headache, vision changes, dizziness, and any other associated symptoms. Surgical Hx: umbilical hernia, hysterectomy, partial colectomy Time Seen by Provider: 10/07/18 15:15 Chief Complaint (Nursing): GI Problem History Per: Patient History/Exam Limitations: no limitations Onset/Duration Of Symptoms: Days (x3) Current Symptoms Are (Timing): Still Present Location Of Pain/Discomfort: Diffuse Radiation Of Pain To:: None Quality Of Discomfort: Aching Associated Symptoms: Nausea, Vomiting, Diarrhea, Loss Of Appetite Exacerbating Factors: None Alleviating Factors: None Last Bowel Movement: Yesterday Recent travel outside of the [place]: No Abnormal Vaginal Bleeding: No Past Medical History Reviewed: Historical Data, Nursing Documentation, Vital Signs Vital Signs: Last Vital Signs Temp 97.7 F 10/07/18 15:07 Pulse 114 H 10/07/18 15:07 Resp 18 10/07/18 15:07 BP 181/61 H 10/07/18 15:07 Pulse Ox 99 10/07/18 15:07 - Medical History PMH: Anxiety, Arthritis, Asthma, Bronchitis, COPD, Diabetes, Diverticulitis, Fractures (RT.FOOT/CASTED NO OR), HTN, Hypercholesterolemia, Osteoporosis, Pneumonia Denies: HIV, Chronic Kidney Disease Surgical History: Endoscopy - [facility] Procedures ASSISTANCE WITH RESPIRATORY VENTILATION, 24-96 HRS (02/17/17) BYPASS L FEM ART TO R FEMOR A WITH SYNTH SUB, OPEN APPROACH (02/09/17) CLOSED ENDOSCOPIC BIOPSY OF LARGE INTESTINE (07/31/15) DILATION OF R FEM ART WITH INTRALUM DEV, PERC APPROACH (11/06/17) ENDOSCOPIC CONTROL OF GASTRIC OR DUODENAL BLEEDING (07/24/15) ESOPHAGOGASTRODUODENOSCOPY [EGD] W/CLOSED BIOPSY (04/22/13) EXERCISE TREATMENT OF MUSCULOSK WHOLE USING ASSIST EQUIPMENT (02/22/18) EXERCISE TRMT MUSCULOSK LOW BACK/LE W ASSIST EQUIP (03/09/17) FLUOROSCOPY OF LEFT HEART USING LOW OSMOLAR CONTRAST (08/06/18) FLUOROSCOPY OF MULT COR ART USING L OSM CONTRAST (08/06/18) GAIT TRAINING/AMBULAT TREATMENT USING ASSIST EQUIPMENT (11/11/17) GAIT TRAINING/FUNCTIONAL AMBULATION TREATMENT (02/17/17) HOME MANAGEMENT TREATMENT (02/17/17) HOME MANAGEMENT TREATMENT USING ASSIST EQUIPMENT (02/22/18) INTRODUCE OF OTH ANTI-INFECT INTO PERIPH VEIN, PERC APPROACH (02/22/18) MEASURE OF CARDIAC SAMPL & PRESSURE, L HEART, PERC APPROACH (08/06/18) THERAPEUTIC EXERCISE TREATMENT OF MUSCULOSK LOW BACK/LE (02/17/17) TRANSFUSE NONAUT RED BLOOD CELLS IN PERIPH VEIN, PERC (02/09/17) Family History: States: Unknown Family Hx - Social History Hx Tobacco Use: Yes (Former.) Hx Alcohol Use: No Hx Substance Use: No - Immunization History Hx Tetanus Toxoid Vaccination: No Hx Influenza Vaccination: Yes (2018) Hx Pneumococcal Vaccination: Yes Review Of Systems Except As Marked, All Systems Reviewed And Found Negative. Constitutional: Negative for: Fever, Chills Eyes: Negative for: Vision Change Cardiovascular: Negative for: Chest Pain, Palpitations Respiratory: Negative for: Cough, Shortness of Breath Gastrointestinal: Positive for: Nausea, Abdominal Pain, Diarrhea (black stool.). Negative for: Vomiting Genitourinary: Negative for: Dysuria, Frequency, Vaginal Discharge, Vaginal Bleeding Musculoskeletal: Negative for: Neck Pain, Back Pain Skin: Negative for: Rash, Lesions Neurological: Negative for: Weakness, Numbness, Incoordination Physical Exam - Physical Exam Appears: Well, Non-toxic, No Acute Distress Skin: Warm, Dry Head: Atraumatic, Normacephalic Eye(s): bilateral: Normal Inspection Nose: Normal Oral Mucosa: Moist Neck: Normal ROM, Trachea Midline, No Paracervical Tenderness, No Supple Lymphatic: Normal Exam Chest: Symmetrical, No Deformity Cardiovascular: Rhythm Regular, No Murmur Respiratory: Normal Breath Sounds, No Rales, No Rhonchi, No Wheezing Gastrointestinal/Abdominal: Bowel Sounds (hypoactive), Soft, Tenderness (moderate, diffuse, R>L. ), No Mass, No Distention, No Guarding, No Rebound Rectal: Rectal Tone (normal. ), Heme Positive (brown stool), No Hemorrhoids, No Mass, No Tenderness, Other (Normal exterior. ) Back: Normal Inspection, No CVA Tenderness, No Vertebral Tenderness, No Decreased ROM Extremity: Normal ROM (x4), No Tenderness, No Calf Tenderness, Capillary Refill (<2s), No Swelling Extremity: Bilateral: Atraumatic, No Pedal Edema, Normal Color And Temperature, Normal ROM Pulses: Left Radial: Normal, Right Radial: Normal, Left Dorsalis Pedis: Normal, Right Dorsalis Pedis: Normal Neurological/Psych: Oriented x3, Normal Speech, Normal Cognition, Normal Motor, Normal Sensation Gait: Steady ED Course And Treatment - Laboratory Results Result Diagrams: 10/07/18 16:00 10/07/18 16:00 Lab Interpretation: Abnormal ECG: Viewed By Me (Reviewed by ED Attending Dr. Bernal) ECG Rhythm: Sinus Rhythm Interpretation Of ECG: Rate 91; NSR; normal intervals; No STEMI. Flattened T waves throughout Rate From EC O2 Sat by Pulse Oximetry: 99 (RA) Pulse Ox Interpretation: Normal - Radiology CXR: Viewed By Me, Read By Radiologist CXR Interpretation: Yes: No Acute Disease - Physician Consult Information Physician Contacted: Briana Medical Decision Making Medical Decision Making: Plan: -CT ABD/Pelvis IV Contrast only EKG -CXR CBC, CMP, Lipase -Troponin Urinalysis Glucose POC Progress/Update: Review of prior records indicate patient was evaluated on 08/06/18 and admitted for shortness of breath. In the hospital she received blood transfusion without complication. The patient was discharged on 08/18/18. 16:30 Hgb 7.7 Consent obtained for blood transfusion after full discussion of risks and benefits with patient. Patient repeated risks back to me and verbalized understanding. Troponin 0.04, negative, however ASA not given secondary to active GI bleed. CXR shows mild venous congestion, no active pulmonary disease 18:15 CT Abd/Pelvis shows acute appendicitis with splenic mass. Notified by nursing, who was called by radiology. 18:22 : Spoke with Dr. Ledesma, PMBoyd, regarding the patients case, recommends consulting Dr. Rankin, surgery. 18:24 : Spoke with Dr. Rankin, surgery, will come to evaluate the patient. 18:27 : Spoke with Dr. Ledesma, who agreed to admit the patient to telemetry with diagnoses of Appendicitis, Anemia, and GI Bleed. Disposition Discussed With Dr.: Terrell Rankin Jr. Doctor Will See Patient In The: ED - Disposition Disposition: HOSPITALIZED Disposition Time: 18:30 Condition: STABLE - Clinical Impression Clinical Impression: Acute appendicitis, GI bleed, Anemia - PA / [employer]PER[employer]OR / Resident Statement MD/DO has reviewed & agrees with the documentation as recorded. - Scribe Statement The provider has reviewed the documentation as recorded by the Scribe (Kelly Almodovar) All medical record entries made by the Scribe were at my direction and personal ly dictated by me. I have reviewed the chart and agree that the record accurately reflects my personal performance of the history, physical exam, medical decision making, and the department course for this patient. I have also personally directed, reviewed, and agree with the discharge instructions and disposition. Decision To Admit - Pt Status Changed To: Hospital Disposition Of: Inpatient - Admit Certification Admit to Inpatient:: After my assessment, the patient will require hospitaliza tion for at least two midnights. This is because of the severity of symptoms shown, intensity of services needed, and/or the medical risk in this patient being treated as an outpatient. - InPatient: Physician Admission Certification:: 73 y/o with PMH of HTN, DM, COPD, Anemia, presented c/o nausea, vomiting, black stools, abdominal pain x 3 days. No fevers, back pain, chest pain, SOB. Found to have leukocytosis, anemia, active GI bleed, acute appendicitis, splenic mass. Will transfuse. Admission to telemetry with Dr. Ledesma with surgical consult. - . Bed Request Type: Telemetry Admitting Physician: Ana María Davis Patient Diagnosis: Acute appendicitis, Anemia, GI bleed
[2018-10-07 16:14] LABS: MEAN CELL VOLUME 89.8 fL (81.0-99.0)
[2018-10-07 16:33] LABS: INR 1.1
[2018-10-07 16:40] LABS: ALB/GLOB RATIO 1.3 (1.0-2.1); ALBUMIN 3.7 g/dL (3.5-5.0); ALT/SGPT 19 U/L (9-52); AST/SGOT 31 U/L (14-36); BLOOD UREA NITROGEN 20 mg/dL (7-17); CALCIUM 9.7 mg/dl (8.6-10.4); GFR NON-AFRICAN AMERICAN > 60; LIPASE 65 U/L (23-300)
[2018-10-07 16:51] LABS: SQUAMOUS EPITHIAL < 1 /hpf (0-5); URINE BILIRUBIN NEGATIVE (NEGATIVE); URINE BLOOD NEGATIVE (NEGATIVE); URINE CLARITY Clear (Clear); URINE COLOR Yellow (YELLOW); URINE GLUCOSE (UA) NORMAL (Normal); URINE LEUKOCYTE ESTERASE NEG Leu/uL (Negative); URINE PROTEIN 2+ mg/dL (NEGATIVE); URINE UROBILINOGEN NORMAL mg/dL (0.2-1.0)
[2018-10-07] MEDS ORDERED: Iohexol 300 100 ML IJ ONE (17:09)
--- NOTE | 2018-10-07 18:24 | CT ---
Date of service: 10/07/2018 PROCEDURE: CT Abdomen and Pelvis with contrast HISTORY: generalized abdominal pain, guiac + stool COMPARISON: None. TECHNIQUE: Intravenous contrast dose: 100 cc Omnipaque 300. Radiation dose: Total exam DLP = 651.36 mGy-cm. This CT exam was performed using one or more of the following dose reduction techniques: Automated exposure control, adjustment of the mA and/or kV according to patient size, and/or use of iterative reconstruction technique. FINDINGS: LOWER THORAX: Unremarkable. LIVER: Unremarkable. No gross lesion or ductal dilatation. GALLBLADDER AND BILE DUCTS: Unremarkable. PANCREAS: Unremarkable. No gross lesion or ductal dilatation. SPLEEN: Irregular splenic mass 2 x 2.8 cm. The findings are suspicious for a neoplastic process. There is no history of primary tumor. Infectious/inflammatory etiologies are less likely. ADRENALS: Unremarkable. No mass. KIDNEYS AND URETERS: Unremarkable. No hydronephrosis. No solid mass. VASCULATURE: Atherosclerotic calcification and mural plaque present. Findings are seen throughout the aorta which is non aneurysmal. By femoral vascular bypass. BOWEL: Resolution of colitis identified previously. Diverticulosis without an acute inflammatory component or other associated pathologic process. APPENDIX: Edematous appendix which has a retrocecal location with right lower quadrant inflammatory changes. No drainable collection. The cecum is deeply situated in the pelvis and the appendix courses laterally and superiorly. PERITONEUM: Unremarkable. No free fluid. No free air. LYMPH NODES: Unremarkable. No enlarged lymph nodes. BLADDER: Unremarkable. REPRODUCTIVE: Prior hysterectomy. BONES: No acute fracture. OTHER FINDINGS: None. IMPRESSION: Acute appendicitis. The appendix extends from a pelvic cecum to a retrocecal location in the right lower quadrant. This appears to be uncomplicated without evidence of drainable collection, loculated air or free air. Communication of results: I discussed findings with health Care personnel involved in the care and management this patient at 18:14. Indeterminate splenic mass.
--- NOTE | 2018-10-07 18:26 | RAD ---
Date of service: 10/07/2018 HISTORY: admission, upper abdominal pain COMPARISON: 08/06/2018 FINDINGS: LUNGS: The lungs are well inflated. There is mild pulmonary venous congestion. There is a linear scar in the left mid lung. PLEURA: No pleural effusions or pneumothorax. CARDIOVASCULAR: There is mild cardiomegaly and prominent central vasculature. Atherosclerotic aortic arch calcifications are present. OSSEOUS STRUCTURES: Within normal limits for the patient's age. VISUALIZED UPPER ABDOMEN: Normal. OTHER FINDINGS: None. IMPRESSION: No active pulmonary disease. Mild pulmonary venous congestion.
[2018-10-07] MEDS: Sodium Chloride 0.9% 1,000 ML IV SCH (19:03)
[2018-10-07] MEDS ORDERED: Dextrose 50% SYRINGE Inj (50 ml) ONE (21:47)
[2018-10-07] MEDS ORDERED: Piperacillin/Tazobact 3.375 GM in Sodium Chloride 100 ML IVPB SCH (22:00)
[2018-10-07] MEDS ORDERED: Dextrose 50% SYRINGE Inj (50 ml) IV PRN (22:01)
[2018-10-07] MEDS ORDERED: Glucagon Recombinant 1 mg Inj IM PRN (22:01)
--- NOTE | 2018-10-07 22:31 | CP.PCM.CON ---
History of Present Illness - History of Present Illness History of Present Illness: General Surgery Consult CC: abdominal pain HPI: 73F sent to the ED by PMD Dr. Ledesma for evaluation of black stool associated with abdominal pain x 3 days. Abdominal pain is diffuse but worse in RLQ and LUQ. Associated with multiple episodes of diarrhea with black bowel movements. Reports dry heaving after attempting to eat solids or drink liquids yesterday. Denies fever, chills, chest pain, palpitations, SOB, weakness, numbness, back pain, headache, vision changes, and dizziness. Last BM yesterday. PMH: Anxiety, Arthritis, Asthma, Bronchitis, COPD, CAD, PVD, Diabetes, HTN, HLD, Osteoporosis PSH: umbilical hernia, hysterectomy, partial colectomy, L to R fem bypass SH: Former tobacco use, No EtOH or drug use. FH: noncontributory All: PCN, sulfa Meds: See MAR, On plavix and pletal Review of Systems - Review of Systems All systems: reviewed and no additional remarkable complaints except (as per HPI) Past Patient History - Infectious Disease Hx of Infectious Diseases: None - Past Medical History & Family History Past Medical History?: Yes - Past Social History Smoking Status: Current Some Days Smoker - CARDIAC Hx Hypercholesterolemia: Yes Hx Hypertension: Yes - PULMONARY Hx Asthma: Yes Hx Bronchitis: Yes Hx Chronic Obstructive Pulmonary Disease (COPD): Yes Hx Pneumonia: Yes - NEUROLOGICAL Hx Neurological Disorder: No - HEENT Hx HEENT Problems: Yes Other/Comment: WEAR GLASSES - RENAL Hx Chronic Kidney Disease: No - ENDOCRINE/METABOLIC Hx Diabetes Mellitus Type 2: Yes - HEMATOLOGICAL/ONCOLOGICAL Hx Human Immunodeficiency Virus (HIV): No - INTEGUMENTARY Hx Dermatological Problems: No - MUSCULOSKELETAL/RHEUMATOLOGICAL Hx Arthritis: Yes Hx Fractures: Yes (RT.FOOT/CASTED NO OR) Hx Osteoporosis: Yes - GASTROINTESTINAL Hx Diverticulitis: Yes - GENITOURINARY/GYNECOLOGICAL Hx Genitourinary Disorders: No - PSYCHIATRIC Hx Anxiety: Yes Hx Substance Use: No - SURGICAL HISTORY Hx Surgeries: Yes Hx Angiogram: Yes (Stenting bilateral legs) Hx Breast Biopsy: Yes (RT. 11 yrs old) Hx Herniorrhaphy: Yes (UMBILICAL) Hx Hysterectomy: Yes (RYANN) Hx Orthopedic Surgery: Yes (OMAR. BUNIONECTOMY) Hx Tubal Ligation: Yes - ANESTHESIA Hx Anesthesia: Yes Hx Anesthesia Reactions: No Hx Malignant Hyperthermia: No Meds Allergies/Adverse Reactions: Allergies Allergy/AdvReac Type Severity Reaction Status Date / Time Penicillins Allergy Intermediate SWELLING Verified 08/06/18 14:23 Sulfa (Sulfonamide Allergy Intermediate RASH Verified 08/06/18 14:23 Antibiotics) tomato AdvReac Intermediate GI UPSET Verified 08/06/18 14:23 - Medications Medications: Current Medications Dextrose (Dextrose 50% Inj) 0 ml IV STAT PRN; Protocol PRN Reason: Hypoglycemia Protocol Dextrose (Glutose 15) 0 gm PO ONCE PRN; Protocol PRN Reason: Hypoglycemia Protocol Glucagon (Glucagen Diagnostic Kit) 0 mg IM STAT PRN; Protocol PRN Reason: Hypoglycemia Protocol Sodium Chloride (Sodium Chloride 0.9%) 1,000 mls @ 100 mls/hr IV .Q10H JOSE ANTONIO Last Admin: 10/07/18 19:03 Dose: 100 mls/hr Dextrose/Sodium Chloride (Dextrose 5%/0.45% Ns 1000 Ml) 1,000 mls @ 100 mls/hr IV .Q10H JOSE ANTONIO Dextrose (Dextrose 5% In Water 1000 Ml) 1,000 mls @ 0 mls/hr IV .Q0M PRN; Protocol PRN Reason: Hypoglycemia Protocol Ciprofloxacin (Cipro 400mg/200ml Dsw) 400 mg in 200 mls @ 133 mls/hr IVPB Q12H JOSE ANTONIO; Protocol Metronidazole (Flagyl) 500 mg in 100 mls @ 100 mls/hr IVPB Q8H JOSE ANTONIO; Protocol Insulin Aspart (Novolog) 0 unit SC ACHS JOSE ANTONIO; Protocol Pantoprazole Sodium (Protonix Inj) 40 mg IVP Q12H JOSE ANTONIO Physical Exam - Constitutional Appears: Non-toxic, No Acute Distress - Head Exam Head Exam: ATRAUMATIC, NORMOCEPHALIC - Eye Exam Eye Exam: EOMI. absent: Scleral icterus - ENT Exam ENT Exam: Mucous Membranes Moist Additional comments: trachea midline - Neck Exam Neck exam: Negative for: Lymphadenopathy, Tenderness - Respiratory Exam Respiratory Exam: NORMAL BREATHING PATTERN. absent: Respiratory Distress - Cardiovascular Exam Cardiovascular Exam: +S1, +S2. absent: Bradycardia - GI/Abdominal Exam GI & Abdominal Exam: Soft, Tenderness (in RLQ and LUQ). absent: Distended, Firm, Guarding, Rebound, Rigid Additional comments: well healed midline scar - Rectal Exam Rectal Exam: Deferred - Extremities Exam Extremities exam: Positive for: normal capillary refill. Negative for: calf tenderness, pedal edema - Back Exam Back exam: absent: CVA tenderness (L), CVA tenderness (R) - Neurological Exam Neurological exam: Alert, Oriented x3 - Skin Skin Exam: Dry, Warm Results - Vital Signs Recent Vital Signs: Last Vital Signs Temp 98.1 F 10/07/18 19:45 Pulse 98 H 10/07/18 19:45 Resp 16 10/07/18 20:55 BP 122/57 L 10/07/18 19:45 Pulse Ox 99 10/07/18 22:14 - Labs Result Diagrams: 10/07/18 16:00 10/07/18 16:00 Labs: Laboratory Results - last 24 hr 10/07/18 10/07/18 10/07/18 16:00 16:00 16:00 WBC 11.7 H RBC 2.58 L Hgb 7.7 L Hct 23.1 L MCV 89.8 D MCH 29.9 MCHC 33.2 RDW 17.6 H Plt Count 250 MPV 7.6 Neut % (Auto) 76.8 H Lymph % (Auto) 13.5 L [place] % (Auto) 8.1 Eos % (Auto) 0.9 Baso % (Auto) 0.7 Neut # (Auto) 9.0 H Lymph # (Auto) 1.6 [place] # (Auto) 1.0 H Eos # (Auto) 0.1 Baso # (Auto) 0.1 PT 12.0 INR 1.1 APTT 28 Sodium 136 Potassium 4.1 Chloride 96 L Carbon Dioxide 29 Anion Gap 15 BUN 20 H Creatinine 0.7 Est GFR ( Amer) > 60 Est GFR (Non-Af Amer) > 60 POC Glucose (mg/dL) Random Glucose 86 Calcium 9.7 Total Bilirubin 0.3 AST 31 ALT 19 Alkaline Phosphatase 67 Troponin I 0.0480 Total Protein 6.6 Albumin 3.7 Globulin 2.9 Albumin/Globulin Ratio 1.3 Lipase 65 Urine Color Urine Clarity Urine pH Ur Specific [place] Urine Protein Urine Glucose (UA) Urine Ketones Urine Blood Urine Nitrate Urine Bilirubin Urine Urobilinogen Ur Leukocyte Esterase Urine WBC (Auto) Urine RBC (Auto) Ur Squamous Epith Cells Blood Type Antibody Screen 10/07/18 10/07/18 10/07/18 16:37 16:40 18:01 WBC RBC Hgb Hct MCV MCH MCHC RDW Plt Count MPV Neut % (Auto) Lymph % (Auto) [place] % (Auto) Eos % (Auto) Baso % (Auto) Neut # (Auto) Lymph # (Auto) [place] # (Auto) Eos # (Auto) Baso # (Auto) PT INR APTT Sodium Potassium Chloride Carbon Dioxide Anion Gap BUN Creatinine Est GFR ( Amer) Est GFR (Non-Af Amer) POC Glucose (mg/dL) 82 Random Glucose Calcium Total Bilirubin AST ALT Alkaline Phosphatase Troponin I Total Protein Albumin Globulin Albumin/Globulin Ratio Lipase Urine Color Yellow Urine Clarity Clear Urine pH 7.0 Ur Specific [place] 1.012 Urine Protein 2+ H Urine Glucose (UA) Normal Urine Ketones Negative Urine Blood Negative Urine Nitrate Negative Urine Bilirubin Negative Urine Urobilinogen Normal Ur Leukocyte Esterase Neg Urine WBC (Auto) 2 Urine RBC (Auto) 1 Ur Squamous Epith Cells < 1 Blood Type O POSITIVE Antibody Screen Negative 10/07/18 10/07/18 18:57 21:41 WBC RBC Hgb Hct MCV MCH MCHC RDW Plt Count MPV Neut % (Auto) Lymph % (Auto) [place] % (Auto) Eos % (Auto) Baso % (Auto) Neut # (Auto) Lymph # (Auto) [place] # (Auto) Eos # (Auto) Baso # (Auto) PT INR APTT Sodium Potassium Chloride Carbon Dioxide Anion Gap BUN Creatinine Est GFR ( Amer) Est GFR (Non-Af Amer) POC Glucose (mg/dL) 73 68 Random Glucose Calcium Total Bilirubin AST ALT Alkaline Phosphatase Troponin I Total Protein Albumin Globulin Albumin/Globulin Ratio Lipase Urine Color Urine Clarity Urine pH Ur Specific [place] Urine Protein Urine Glucose (UA) Urine Ketones Urine Blood Urine Nitrate Urine Bilirubin Urine Urobilinogen Ur Leukocyte Esterase Urine WBC (Auto) Urine RBC (Auto) Ur Squamous Epith Cells Blood Type Antibody Screen - Imaging and Cardiology CT scan - abdomen Status: Image reviewed by me, Report reviewed by me Assessment & Plan - Assessment and Plan (Free Text) Assessment: 73F with possible appendicitis and splenic mass Plan: NPO IVF Abx Zofram Pain control PRN Serial abdominal exams Re-evaluate in the AM Transfusion of 2U PRBCs D/W Dr. Chucho Jackson PGY4
[2018-10-07] MEDS: Ciprofloxacin 400mg/200ml D5W 400 MG/200 ML BAG IVPB SCH (22:55)
[2018-10-07] MEDS: Morphine 4 MG/ML VIAL IVP PRN (22:55)
[2018-10-07] MEDS: Dextrose 5%/0.45% NS 1,000 ML IV SCH (23:16)
[2018-10-08] MEDS: metroNIDAZOLE IV 500 mg/100 ml 500 MG/100 ML BAG IVPB SCH ×3 (04:29→17:21)
[2018-10-08] MEDS: Morphine 4 MG/ML VIAL IVP PRN (05:26)
[2018-10-08] MEDS: Sodium Chloride 0.9% 1,000 ML IV SCH ×2 (06:13→17:20)
[2018-10-08] MEDS: (Novolog) Insulin Aspart, Recombinant 100 u/ml 10 ml vial SC SCH ×3 (07:26→17:20)
[2018-10-08] MEDS: Dextrose 5%/0.45% NS 1,000 ML IV SCH (08:12)
--- NOTE | 2018-10-08 10:11 | CP.PCM.CON ---
<Primo Dsouza - Last Filed: 10/08/18 11:40> History of Present Illness - History of Present Illness History of Present Illness: PGY-4 GI Fellow Consult Note Pt is a 73yo female with PMHx significant for PVD on clopidogrel, cilostazol s/p fem-fem bypass (01/2017), artherectomy of right popliteal and in-stent stenosis (01/28/18), DM, HTN, COPD, diverticulitis s/p partial colon resection who presents to the hospital with abd pain and black stools. She states early in the week she had onset on diffuse, "undescribable," pain worsen in RLQ. The follwing day, she noticed some black stools, semi formed. She usually has formed brown stools per her report. She also reports some associated dry heaving but denied any emesis, fevers, SOB, dizziness, dysphagia, weight loss, Abd pain persisted and she had 2 total episode of black stools prompting her to present for evaluation. 12 system ROS performed and negative except where stated above PMHx: See above PSHx: Fem-fem, partial colectomy, hysterectomy Meds: Reviewed in chart FHx: Denies any significant family history SocialHx: Current some day smoker - smoking for ~58 years; occasional EtOH intake, no illicit drug use All: PCN, Sulfa Endo: EGD 2012 - erosive gastritis, hiatal hernia EGD 2014 - hiatal hernia, gastritis, ? esophageal stricture Colonoscopy 2015 - Internal hemorrhoids, diverticulosis, evidence of colectomy with anastamosis *All biopsies unremarkable *Esophagram in 2017 without esophageal abnormalities Past Patient History - Infectious Disease Hx of Infectious Diseases: None - Past Medical History & Family History Past Medical History?: Yes - Past Social History Smoking Status: Current Some Days Smoker - CARDIAC Hx Hypercholesterolemia: Yes Hx Hypertension: Yes - PULMONARY Hx Asthma: Yes Hx Bronchitis: Yes Hx Chronic Obstructive Pulmonary Disease (COPD): Yes Hx Pneumonia: Yes - NEUROLOGICAL Hx Neurological Disorder: No - HEENT Hx HEENT Problems: Yes Other/Comment: WEAR GLASSES - RENAL Hx Chronic Kidney Disease: No - ENDOCRINE/METABOLIC Hx Diabetes Mellitus Type 2: Yes - HEMATOLOGICAL/ONCOLOGICAL Hx Human Immunodeficiency Virus (HIV): No - INTEGUMENTARY Hx Dermatological Problems: No - MUSCULOSKELETAL/RHEUMATOLOGICAL Hx Arthritis: Yes Hx Fractures: Yes (RT.FOOT/CASTED NO OR) Hx Osteoporosis: Yes - GASTROINTESTINAL Hx Diverticulitis: Yes - GENITOURINARY/GYNECOLOGICAL Hx Genitourinary Disorders: No - PSYCHIATRIC Hx Anxiety: Yes Hx Substance Use: No - SURGICAL HISTORY Hx Surgeries: Yes Hx Angiogram: Yes (Stenting bilateral legs) Hx Breast Biopsy: Yes (RT. 11 yrs old) Hx Herniorrhaphy: Yes (UMBILICAL) Hx Hysterectomy: Yes (RYANN) Hx Orthopedic Surgery: Yes (OMAR. BUNIONECTOMY) Hx Tubal Ligation: Yes - ANESTHESIA Hx Anesthesia: Yes Hx Anesthesia Reactions: No Hx Malignant Hyperthermia: No Meds Allergies/Adverse Reactions: Allergies Allergy/AdvReac Type Severity Reaction Status Date / Time Penicillins Allergy Intermediate SWELLING Verified 08/06/18 14:23 Sulfa (Sulfonamide Allergy Intermediate RASH Verified 08/06/18 14:23 Antibiotics) tomato AdvReac Intermediate GI UPSET Verified 08/06/18 14:23 - Medications Medications: Current Medications Bisoprolol Fumarate (Zebeta) 5 mg PO DAILY [facility] Last Admin: 10/08/18 09:49 Dose: Not Given Dextrose (Dextrose 50% Inj) 0 ml IV STAT PRN; Protocol PRN Reason: Hypoglycemia Protocol Dextrose (Glutose 15) 0 gm PO ONCE PRN; Protocol PRN Reason: Hypoglycemia Protocol Glucagon (Glucagen Diagnostic Kit) 0 mg IM STAT PRN; Protocol PRN Reason: Hypoglycemia Protocol Sodium Chloride (Sodium Chloride 0.9%) 1,000 mls @ 100 mls/hr IV .Q10H [facility] Last Admin: 10/08/18 06:13 Dose: Not Given Dextrose/Sodium Chloride (Dextrose 5%/0.45% Ns 1000 Ml) 1,000 mls @ 100 mls/hr IV .Q10H [facility] Last Admin: 10/08/18 08:12 Dose: Not Given Dextrose (Dextrose 5% In Water 1000 Ml) 1,000 mls @ 0 mls/hr IV .Q0M PRN; Protocol PRN Reason: Hypoglycemia Protocol Ciprofloxacin (Cipro 400mg/200ml Dsw) 400 mg in 200 mls @ 133 mls/hr IVPB Q12H [facility]; Protocol Last Admin: 10/07/18 22:55 Dose: 133 mls/hr Metronidazole (Flagyl) 500 mg in 100 mls @ 100 mls/hr IVPB Q8H [facility]; Protocol Last Admin: 10/08/18 08:07 Dose: 100 mls/hr Insulin Aspart (Novolog) 0 unit SC ACHS [facility]; Protocol Last Admin: 10/08/18 07:26 Dose: Not Given Losartan Potassium (Cozaar) 25 mg PO DAILY [facility] Last Admin: 10/08/18 09:48 Dose: 25 mg Morphine Sulfate (Morphine) 4 mg IVP Q4 PRN PRN Reason: Pain, moderate (4-7) Last Admin: 10/08/18 05:26 Dose: 4 mg Ondansetron HCl (Zofran Inj) 4 mg IVP Q4H PRN PRN Reason: Nausea/Vomiting Pantoprazole Sodium (Protonix Inj) 40 mg IVP Q12H [facility] Last Admin: 10/08/18 09:48 Dose: 40 mg Physical Exam - Constitutional Appears: Well, No Acute Distress - Head Exam Head Exam: ATRAUMATIC, NORMAL INSPECTION - Eye Exam Eye Exam: EOMI. absent: Scleral icterus - ENT Exam ENT Exam: Mucous Membranes Dry. absent: Mucous Membranes Moist - Respiratory Exam Respiratory Exam: Clear to Auscultation Bilateral. absent: Accessory Muscle Use - Cardiovascular Exam Cardiovascular Exam: REGULAR RHYTHM - GI/Abdominal Exam GI & Abdominal Exam: Guarding (voluntary with palpation of RLQ), Normal Bowel Sounds, Rebound, Soft, Tenderness. absent: Bruit, Diminished Bowel Sounds, Distended, Firm, Mass, Organomegaly, Pulsatile Mass, Rigid - Rectal Exam Additional comments: pt decline rectal exam - Extremities Exam Extremities exam: Positive for: normal inspection. Negative for: pedal edema - Neurological Exam Neurological exam: Alert, CN II-XII Intact - Psychiatric Exam Psychiatric exam: Normal Affect, Normal Mood - Skin Skin Exam: Normal Color, Warm Results - Vital Signs Recent Vital Signs: Last Vital Signs Temp 98.5 F 10/08/18 07:00 Pulse 88 10/08/18 07:00 Resp 20 10/08/18 07:00 BP 123/54 L 10/08/18 07:00 Pulse Ox 94 L 10/08/18 07:00 - Labs Result Diagrams: 10/08/18 10:30 10/07/18 16:00 Labs: Laboratory Results - last 24 hr 10/07/18 10/07/18 10/07/18 16:00 16:00 16:00 WBC 11.7 H RBC 2.58 L Hgb 7.7 L Hct 23.1 L MCV 89.8 D MCH 29.9 MCHC 33.2 RDW 17.6 H Plt Count 250 MPV 7.6 Neut % (Auto) 76.8 H Lymph % (Auto) 13.5 L [place] % (Auto) 8.1 Eos % (Auto) 0.9 Baso % (Auto) 0.7 Neut # (Auto) 9.0 H Lymph # (Auto) 1.6 Finney # (Auto) 1.0 H Eos # (Auto) 0.1 Baso # (Auto) 0.1 PT 12.0 INR 1.1 APTT 28 Sodium 136 Potassium 4.1 Chloride 96 L Carbon Dioxide 29 Anion Gap 15 BUN 20 H Creatinine 0.7 Est GFR ( Amer) > 60 Est GFR (Non-Af Amer) > 60 POC Glucose (mg/dL) Random Glucose 86 Calcium 9.7 Total Bilirubin 0.3 AST 31 ALT 19 Alkaline Phosphatase 67 Troponin I 0.0480 Total Protein 6.6 Albumin 3.7 Globulin 2.9 Albumin/Globulin Ratio 1.3 Lipase 65 Urine Color Urine Clarity Urine pH Ur Specific [place] Urine Protein Urine Glucose (UA) Urine Ketones Urine Blood Urine Nitrate Urine Bilirubin Urine Urobilinogen Ur Leukocyte Esterase Urine WBC (Auto) Urine RBC (Auto) Ur Squamous Epith Cells Blood Type Antibody Screen 10/07/18 10/07/18 10/07/18 16:37 16:40 18:01 WBC RBC Hgb Hct MCV MCH MCHC RDW Plt Count MPV Neut % (Auto) Lymph % (Auto) [place] % (Auto) Eos % (Auto) Baso % (Auto) Neut # (Auto) Lymph # (Auto) [place] # (Auto) Eos # (Auto) Baso # (Auto) PT INR APTT Sodium Potassium Chloride Carbon Dioxide Anion Gap BUN Creatinine Est GFR ( Amer) Est GFR (Non-Af Amer) POC Glucose (mg/dL) 82 Random Glucose Calcium Total Bilirubin AST ALT Alkaline Phosphatase Troponin I Total Protein Albumin Globulin Albumin/Globulin Ratio Lipase Urine Color Yellow Urine Clarity Clear Urine pH 7.0 Ur Specific [place] 1.012 Urine Protein 2+ H Urine Glucose (UA) Normal Urine Ketones Negative Urine Blood Negative Urine Nitrate Negative Urine Bilirubin Negative Urine Urobilinogen Normal Ur Leukocyte Esterase Neg Urine WBC (Auto) 2 Urine RBC (Auto) 1 Ur Squamous Epith Cells < 1 Blood Type O POSITIVE Antibody Screen Negative 10/07/18 10/07/18 10/07/18 18:57 21:41 22:29 WBC RBC Hgb Hct MCV MCH MCHC RDW Plt Count MPV Neut % (Auto) Lymph % (Auto) [place] % (Auto) Eos % (Auto) Baso % (Auto) Neut # (Auto) Lymph # (Auto) [place] # (Auto) Eos # (Auto) Baso # (Auto) PT INR APTT Sodium Potassium Chloride Carbon Dioxide Anion Gap BUN Creatinine Est GFR ( Amer) Est GFR (Non-Af Amer) POC Glucose (mg/dL) 73 68 136 H Random Glucose Calcium Total Bilirubin AST ALT Alkaline Phosphatase Troponin I Total Protein Albumin Globulin Albumin/Globulin Ratio Lipase Urine Color Urine Clarity Urine pH Ur Specific [place] Urine Protein Urine Glucose (UA) Urine Ketones Urine Blood Urine Nitrate Urine Bilirubin Urine Urobilinogen Ur Leukocyte Esterase Urine WBC (Auto) Urine RBC (Auto) Ur Squamous Epith Cells Blood Type Antibody Screen 10/08/18 10/08/18 01:54 06:30 WBC RBC Hgb Hct MCV MCH MCHC RDW Plt Count MPV Neut % (Auto) Lymph % (Auto) [place] % (Auto) Eos % (Auto) Baso % (Auto) Neut # (Auto) Lymph # (Auto) Finney # (Auto) Eos # (Auto) Baso # (Auto) PT INR APTT Sodium Potassium Chloride Carbon Dioxide Anion Gap BUN Creatinine Est GFR ( Amer) Est GFR (Non-Af Amer) POC Glucose (mg/dL) 90 111 H Random Glucose Calcium Total Bilirubin AST ALT Alkaline Phosphatase Troponin I Total Protein Albumin Globulin Albumin/Globulin Ratio Lipase Urine Color Urine Clarity Urine pH Ur Specific [place] Urine Protein Urine Glucose (UA) Urine Ketones Urine Blood Urine Nitrate Urine Bilirubin Urine Urobilinogen Ur Leukocyte Esterase Urine WBC (Auto) Urine RBC (Auto) Ur Squamous Epith Cells Blood Type Antibody Screen Assessment & Plan - Assessment and Plan (Free Text) Assessment: 73 yo BF with h/o Tob Abuse, diverticulitis s/p colon resection presenting with abd pain and black stools. # Abd pain and Melena: Suspect related to acute appendicitis seen on CT. Unclear exact cause of melena, perhaps bleeding R sided colon lesion as had h/o R sided colitis earlier this year w/o f/u CSPY despite being recommended. Also at risk for anastamotic bleed given h/o colonic resection. # Acute on Chronic Anemia: Hgb 7.7 from about 9 baseline. Perhaps related melena and upper GI or slow right sided colon source. s/p 2 units PRBCs with good response. # Splenic lesion: Unclear etiology. Pt denied any weight loss or other red flag symptoms other than black stools to suggest possible bleeding. Plan: - Surgery plans for OR today for appendectomy - Diet, IVF and Abx per surgery - Cont PPI IV BID for now - Monitor Hgb - Further recommendations pending clinical course Thank you for the consult; will continue to follow. Pt seen and examined with Dr. Betancur; see attestation for further recs/changes. Primo Dsouza, PGY-4 <Titus Betancur - Last Filed: 10/08/18 15:03> Meds - Medications Medications: Current Medications Bisoprolol Fumarate (Zebeta) 5 mg PO DAILY [facility] Last Admin: 10/08/18 09:49 Dose: Not Given Dextrose (Dextrose 50% Inj) 0 ml IV STAT PRN; Protocol PRN Reason: Hypoglycemia Protocol Dextrose (Glutose 15) 0 gm PO ONCE PRN; Protocol PRN Reason: Hypoglycemia Protocol Glucagon (Glucagen Diagnostic Kit) 0 mg IM STAT PRN; Protocol PRN Reason: Hypoglycemia Protocol Hydromorphone HCl (Dilaudid) 0.5 mg IVP Q5M PRN PRN Reason: Pain, severe (8-10) Stop: 10/08/18 16:57 Sodium Chloride (Sodium Chloride 0.9%) 1,000 mls @ 100 mls/hr IV .Q10H [facility] Last Admin: 10/08/18 06:13 Dose: Not Given Dextrose/Sodium Chloride (Dextrose 5%/0.45% Ns 1000 Ml) 1,000 mls @ 100 mls/hr IV .Q10H [facility] Last Admin: 10/08/18 08:12 Dose: Not Given Dextrose (Dextrose 5% In Water 1000 Ml) 1,000 mls @ 0 mls/hr IV .Q0M PRN; Protocol PRN Reason: Hypoglycemia Protocol Ciprofloxacin (Cipro 400mg/200ml Dsw) 400 mg in 200 mls @ 133 mls/hr IVPB Q12H [facility]; Protocol Last Admin: 10/08/18 10:30 Dose: 133 mls/hr Metronidazole (Flagyl) 500 mg in 100 mls @ 100 mls/hr IVPB Q8H [facility]; Protocol Last Admin: 10/08/18 08:07 Dose: 100 mls/hr Insulin Aspart (Novolog) 0 unit SC ACHS [facility]; Protocol Last Admin: 10/08/18 11:38 Dose: Not Given Losartan Potassium (Cozaar) 25 mg PO DAILY [facility] Last Admin: 10/08/18 09:48 Dose: 25 mg Morphine Sulfate (Morphine) 4 mg IVP Q4 PRN PRN Reason: Pain, moderate (4-7) Last Admin: 10/08/18 05:26 Dose: 4 mg Ondansetron HCl (Zofran Inj) 4 mg IVP Q4H PRN PRN Reason: Nausea/Vomiting Ondansetron HCl (Zofran Inj) 4 mg IVP ONCE PRN PRN Reason: Nausea/Vomiting Stop: 10/08/18 16:57 Pantoprazole Sodium (Protonix Inj) 40 mg IVP Q12H [facility] Last Admin: 10/08/18 09:48 Dose: 40 mg Results - Vital Signs Recent Vital Signs: Last Vital Signs Temp 98.5 F 10/08/18 07:00 Pulse 88 10/08/18 07:00 Resp 20 10/08/18 07:00 BP 123/54 L 10/08/18 07:00 Pulse Ox 94 L 10/08/18 07:00 - Labs Result Diagrams: 10/08/18 10:30 10/08/18 10:30 Labs: Laboratory Results - last 24 hr 10/07/18 10/07/18 10/07/18 16:00 16:00 16:00 WBC 11.7 H RBC 2.58 L Hgb 7.7 L Hct 23.1 L MCV 89.8 D MCH 29.9 MCHC 33.2 RDW 17.6 H Plt Count 250 MPV 7.6 Neut % (Auto) 76.8 H Lymph % (Auto) 13.5 L [place] % (Auto) 8.1 Eos % (Auto) 0.9 Baso % (Auto) 0.7 Neut # (Auto) 9.0 H Lymph # (Auto) 1.6 Finney # (Auto) 1.0 H Eos # (Auto) 0.1 Baso # (Auto) 0.1 PT 12.0 INR 1.1 APTT 28 Sodium 136 Potassium 4.1 Chloride 96 L Carbon Dioxide 29 Anion Gap 15 BUN 20 H Creatinine 0.7 Est GFR ( Amer) > 60 Est GFR (Non-Af Amer) > 60 POC Glucose (mg/dL) Random Glucose 86 Calcium 9.7 Total Bilirubin 0.3 AST 31 ALT 19 Alkaline Phosphatase 67 Troponin I 0.0480 Total Protein 6.6 Albumin 3.7 Globulin 2.9 Albumin/Globulin Ratio 1.3 Lipase 65 Urine Color Urine Clarity Urine pH Ur Specific [place] Urine Protein Urine Glucose (UA) Urine Ketones Urine Blood Urine Nitrate Urine Bilirubin Urine Urobilinogen Ur Leukocyte Esterase Urine WBC (Auto) Urine RBC (Auto) Ur Squamous Epith Cells Blood Type Antibody Screen 10/07/18 10/07/18 10/07/18 16:37 16:40 18:01 WBC RBC Hgb Hct MCV MCH MCHC RDW Plt Count MPV Neut % (Auto) Lymph % (Auto) [place] % (Auto) Eos % (Auto) Baso % (Auto) Neut # (Auto) Lymph # (Auto) [place] # (Auto) Eos # (Auto) Baso # (Auto) PT INR APTT Sodium Potassium Chloride Carbon Dioxide Anion Gap BUN Creatinine Est GFR ( Amer) Est GFR (Non-Af Amer) POC Glucose (mg/dL) 82 Random Glucose Calcium Total Bilirubin AST ALT Alkaline Phosphatase Troponin I Total Protein Albumin Globulin Albumin/Globulin Ratio Lipase Urine Color Yellow Urine Clarity Clear Urine pH 7.0 Ur Specific [place] 1.012 Urine Protein 2+ H Urine Glucose (UA) Normal Urine Ketones Negative Urine Blood Negative Urine Nitrate Negative Urine Bilirubin Negative Urine Urobilinogen Normal Ur Leukocyte Esterase Neg Urine WBC (Auto) 2 Urine RBC (Auto) 1 Ur Squamous Epith Cells < 1 Blood Type O POSITIVE Antibody Screen Negative 10/07/18 10/07/18 10/07/18 18:57 21:41 22:29 WBC RBC Hgb Hct MCV MCH MCHC RDW Plt Count MPV Neut % (Auto) Lymph % (Auto) [place] % (Auto) Eos % (Auto) Baso % (Auto) Neut # (Auto) Lymph # (Auto) [place] # (Auto) Eos # (Auto) Baso # (Auto) PT INR APTT Sodium Potassium Chloride Carbon Dioxide Anion Gap BUN Creatinine Est GFR ( Amer) Est GFR (Non-Af Amer) POC Glucose (mg/dL) 73 68 136 H Random Glucose Calcium Total Bilirubin AST ALT Alkaline Phosphatase Troponin I Total Protein Albumin Globulin Albumin/Globulin Ratio Lipase Urine Color Urine Clarity Urine pH Ur Specific [place] Urine Protein Urine Glucose (UA) Urine Ketones Urine Blood Urine Nitrate Urine Bilirubin Urine Urobilinogen Ur Leukocyte Esterase Urine WBC (Auto) Urine RBC (Auto) Ur Squamous Epith Cells Blood Type Antibody Screen 10/08/18 10/08/18 10/08/18 01:54 06:30 10:30 WBC RBC Hgb Hct MCV MCH MCHC RDW Plt Count MPV Neut % (Auto) Lymph % (Auto) [place] % (Auto) Eos % (Auto) Baso % (Auto) Neut # (Auto) Lymph # (Auto) [place] # (Auto) Eos # (Auto) Baso # (Auto) PT INR APTT Sodium 138 Potassium 3.9 Chloride 103 Carbon Dioxide 26 Anion Gap 13 BUN 13 Creatinine 0.7 Est GFR ( Amer) > 60 Est GFR (Non-Af Amer) > 60 POC Glucose (mg/dL) 90 111 H Random Glucose 132 H Calcium 9.3 Total Bilirubin 1.1 AST 42 H D ALT 26 Alkaline Phosphatase 80 Troponin I Total Protein 6.6 Albumin 3.7 Globulin 2.9 Albumin/Globulin Ratio 1.3 Lipase Urine Color Urine Clarity Urine pH Ur Specific [place] Urine Protein Urine Glucose (UA) Urine Ketones Urine Blood Urine Nitrate Urine Bilirubin Urine Urobilinogen Ur Leukocyte Esterase Urine WBC (Auto) Urine RBC (Auto) Ur Squamous Epith Cells Blood Type Antibody Screen 10/08/18 10/08/18 10:30 11:58 WBC 14.1 H RBC 3.64 L Hgb 11.2 D Hct 32.9 L MCV 90.4 MCH 30.8 MCHC 34.1 RDW 17.2 H Plt Count 223 MPV 8.0 Neut % (Auto) 76.8 H Lymph % (Auto) 12.0 L [place] % (Auto) 8.6 Eos % (Auto) 1.9 Baso % (Auto) 0.7 Neut # (Auto) 10.8 H Lymph # (Auto) 1.7 Finney # (Auto) 1.2 H Eos # (Auto) 0.3 Baso # (Auto) 0.1 PT INR APTT Sodium Potassium Chloride Carbon Dioxide Anion Gap BUN Creatinine Est GFR ( Amer) Est GFR (Non-Af Amer) POC Glucose (mg/dL) 167 H Random Glucose Calcium Total Bilirubin AST ALT Alkaline Phosphatase Troponin I Total Protein Albumin Globulin Albumin/Globulin Ratio Lipase Urine Color Urine Clarity Urine pH Ur Specific [place] Urine Protein Urine Glucose (UA) Urine Ketones Urine Blood Urine Nitrate Urine Bilirubin Urine Urobilinogen Ur Leukocyte Esterase Urine WBC (Auto) Urine RBC (Auto) Ur Squamous Epith Cells Blood Type Antibody Screen Attending/Attestation - Attestation I have personally seen and examined this patient.: Yes I have fully participated in the care of the patient.: Yes I have reviewed all pertinent clinical information: Yes Notes (Text): 10/08/18 14:59 I have seen and examined patient with GI fellow. Agree with above documentation with the following additions. In brief, this is a 73 year old female with history of PVD on plavix, HTN, DM, COPD, partial colon resection secondary to diverticulitis who presents to hospital with complaint of abdominal pain and dark colored stool. She reports sharp RLQ abdominal pain for the past one week that has been getting progressively worse. During this time she also notes dark black colored stool, last bowel movement 2 days ago. On arrival to hospital she was diagnosed with acute appendicitis and has planned operative intervention today. She denies nausea, vomiting, fever/chills, weight loss. She had an EGD/colonoscopy in 2014 and was supposed to have outpatient follow up but did not pursue. HTN / DM PVD on plavix COPD History of partial colon resection Abdominal pain - acute appendicitis Anemia - NPO - H/H stable, s/p PRBC transfusion, continue to monitor - Continue with PPI therapy - Suggest holding plavix for time being given complaint of dark colored stool with melena - Follow up surgical recommendations - Currently no planned GI intervention given need for primary operative procedure today, however will continue to monitor patient clinical course
[2018-10-08] MEDS: Ciprofloxacin 400mg/200ml D5W 400 MG/200 ML BAG IVPB SCH ×2 (10:30→21:54)
[2018-10-08 10:41] LABS: BASO # 0.1 K/uL (0.0-0.2); BASO % 0.7 % (0.0-2.0); EOS # 0.3 K/uL (0.0-0.7); EOS % 1.9 % (0.0-4.0); LYMPH # 1.7 K/uL (1.0-4.3); MEAN CELL VOLUME 90.4 fL (81.0-99.0); MEAN CORPUSCULAR HEMOGLOBIN 30.8 pg (27.0-31.0); MEAN CORPUSCULAR HGB CONC 34.1 g/dL (33.0-37.0); MONO # 1.2 K/uL (0.0-0.8); MONO % 8.6 % (0.0-10.0); NEUT # 10.8 K/uL (1.8-7.0); NEUT % 76.8 % (50.0-75.0); NRBC % 0.1 % (0.0-2.0); RBC 3.64 Mil/uL (3.80-5.20); RED CELL DISTRIBUTION WIDTH 17.2 % (11.5-14.5); WHITE BLOOD COUNT 14.1 K/uL (4.8-10.8)
[2018-10-08 10:54] LABS: HEMOGLOBIN 11.2 g/dL (11.0-16.0)
[2018-10-08 11:57] LABS: ALT/SGPT 26 U/L (9-52); AST/SGOT 42 U/L (14-36); GFR NON-AFRICAN AMERICAN > 60
[2018-10-08 12:09] LABS: BLOOD UREA NITROGEN 13 mg/dL (7-17)
[2018-10-08 12:10] LABS: ALB/GLOB RATIO 1.3 (1.0-2.1); ALBUMIN 3.7 g/dL (3.5-5.0); CALCIUM 9.3 mg/dl (8.6-10.4)
[2018-10-08] MEDS ORDERED: Midazolam 2 MG/2 ML VIAL ONE (12:53)
[2018-10-08] MEDS ORDERED: Esmolol 100 mg/10ml Inj IV ONE ×2 (13:14→14:44)
[2018-10-08] MEDS ORDERED: Neostigmine Methylsulfate 3mg/3ml Syringe IV ONE (14:22)
[2018-10-08] MEDS ORDERED: Bupivacaine 0.25% 20 ML INJ IJ ONE (14:44)
[2018-10-08] MEDS ORDERED: HYDROmorphone 0.5 mg/0.5 ml ISec IVP PRN (14:57)
--- NOTE | 2018-10-08 14:58 | PCM.SURG1 ---
Surgeon's Initial Post Op Note - Surgeon's Notes Surgeon: Dr. Rankin Glassie: Dr. Ayers PGY3 Type of Anesthesia: General Endo Pre-Operative Diagnosis: Acute Appendicitis Operative Findings: See operative dictation Post-Operative Diagnosis: Acute Appendicitis Operation Performed: Open Appendectomy Specimen/Specimens Removed: Appendix Estimated Blood Loss: EBL {In ML}: 60 Blood Products Given: N/A Drains Used: No Drains Post-Op Condition: Good Date of Surgery/Procedure: 10/08/18 Time of Surgery/Procedure: 14:58
--- NOTE | 2018-10-08 15:16 | CP.PCM.CON ---
<Cleve Bautista - Last Filed: 10/08/18 17:26> History of Present Illness - History of Present Illness History of Present Illness: PGY-1 ICU Consult note for Dr. Nolvia Burger CC: Acute appendicitis and melena Patient is a 73 year old female with a PMHx of diabetes, hypertension, osteoporosis, CAD, PVD, COPD, and hyperlipidemia presenting with black stool associated with abdominal pain. Abdominal pain is diffuse but worse in RLQ and LUQ. Associated with multiple episodes of diarrhea with black bowel movements. Patient diagnosed with acute appendicitis. Patient is s/p open appendectomy and admitted to ICU for observation. Denies fever, chills, chest pain, palpitations, SOB, weakness, numbness, back pain, headache, vision changes, and dizziness. 12 system ROS performed and negative except where stated above PMD: Dr. Ledesma PMHx: Anxiety, Arthritis, Asthma, Bronchitis, COPD, CAD, PVD, Diabetes, HTN, HLD, Osteoporosis PSHx: umbilical hernia, hysterectomy, partial colectomy, Left to Right femoral bypass Social Hx: Former tobacco use. Denies alcohol and drug use. Family Hx: denies Allergies: Penicillin, Sulfa Review of Systems - Review of Systems All systems: reviewed and no additional remarkable complaints except Past Patient History - Infectious Disease Hx of Infectious Diseases: None - Past Medical History & Family History Past Medical History?: Yes - Past Social History Smoking Status: Current Some Days Smoker - CARDIAC Hx Hypercholesterolemia: Yes Hx Hypertension: Yes - PULMONARY Hx Asthma: Yes Hx Bronchitis: Yes Hx Chronic Obstructive Pulmonary Disease (COPD): Yes Hx Pneumonia: Yes - NEUROLOGICAL Hx Neurological Disorder: No - HEENT Hx HEENT Problems: Yes Other/Comment: WEAR GLASSES - RENAL Hx Chronic Kidney Disease: No - ENDOCRINE/METABOLIC Hx Diabetes Mellitus Type 2: Yes - HEMATOLOGICAL/ONCOLOGICAL Hx Human Immunodeficiency Virus (HIV): No - INTEGUMENTARY Hx Dermatological Problems: No - MUSCULOSKELETAL/RHEUMATOLOGICAL Hx Arthritis: Yes Hx Fractures: Yes (RT.FOOT/CASTED NO OR) Hx Osteoporosis: Yes - GASTROINTESTINAL Hx Diverticulitis: Yes - GENITOURINARY/GYNECOLOGICAL Hx Genitourinary Disorders: No - PSYCHIATRIC Hx Anxiety: Yes Hx Substance Use: No - SURGICAL HISTORY Hx Surgeries: Yes Hx Angiogram: Yes (Stenting bilateral legs) Hx Breast Biopsy: Yes (RT. 11 yrs old) Hx Herniorrhaphy: Yes (UMBILICAL) Hx Hysterectomy: Yes (RYANN) Hx Orthopedic Surgery: Yes (OMAR. BUNIONECTOMY) Hx Tubal Ligation: Yes - ANESTHESIA Hx Anesthesia: Yes Hx Anesthesia Reactions: No Hx Malignant Hyperthermia: No Meds Allergies/Adverse Reactions: Allergies Allergy/AdvReac Type Severity Reaction Status Date / Time Penicillins Allergy Intermediate SWELLING Verified 08/06/18 14:23 Sulfa (Sulfonamide Allergy Intermediate RASH Verified 08/06/18 14:23 Antibiotics) tomato AdvReac Intermediate GI UPSET Verified 08/06/18 14:23 - Medications Medications: Current Medications Bisoprolol Fumarate (Zebeta) 5 mg PO DAILY [facility] Last Admin: 10/08/18 09:49 Dose: Not Given Dextrose (Dextrose 50% Inj) 0 ml IV STAT PRN; Protocol PRN Reason: Hypoglycemia Protocol Dextrose (Glutose 15) 0 gm PO ONCE PRN; Protocol PRN Reason: Hypoglycemia Protocol Glucagon (Glucagen Diagnostic Kit) 0 mg IM STAT PRN; Protocol PRN Reason: Hypoglycemia Protocol Hydromorphone HCl (Dilaudid) 0.5 mg IVP Q5M PRN PRN Reason: Pain, severe (8-10) Stop: 10/08/18 16:57 Hydromorphone/Sodium Chloride (Dilaudid [place] [employer]) 6 mg IV Q4H PRN; Protocol PRN Reason: Pain, severe (8-10) Sodium Chloride (Sodium Chloride 0.9%) 1,000 mls @ 100 mls/hr IV .Q10H [facility] Last Admin: 10/08/18 06:13 Dose: Not Given Dextrose/Sodium Chloride (Dextrose 5%/0.45% Ns 1000 Ml) 1,000 mls @ 100 mls/hr IV .Q10H [facility] Last Admin: 10/08/18 08:12 Dose: Not Given Dextrose (Dextrose 5% In Water 1000 Ml) 1,000 mls @ 0 mls/hr IV .Q0M PRN; Protocol PRN Reason: Hypoglycemia Protocol Ciprofloxacin (Cipro 400mg/200ml Dsw) 400 mg in 200 mls @ 133 mls/hr IVPB Q12H [facility]; Protocol Last Admin: 10/08/18 10:30 Dose: 133 mls/hr Metronidazole (Flagyl) 500 mg in 100 mls @ 100 mls/hr IVPB Q8H [facility]; Protocol Last Admin: 10/08/18 08:07 Dose: 100 mls/hr Insulin Aspart (Novolog) 0 unit SC ACHS [facility]; Protocol Last Admin: 10/08/18 11:38 Dose: Not Given Losartan Potassium (Cozaar) 25 mg PO DAILY [facility] Last Admin: 10/08/18 09:48 Dose: 25 mg Morphine Sulfate (Morphine) 4 mg IVP Q4 PRN PRN Reason: Pain, moderate (4-7) Last Admin: 10/08/18 05:26 Dose: 4 mg Ondansetron HCl (Zofran Inj) 4 mg IVP Q4H PRN PRN Reason: Nausea/Vomiting Ondansetron HCl (Zofran Inj) 4 mg IVP ONCE PRN PRN Reason: Nausea/Vomiting Stop: 10/08/18 16:57 Pantoprazole Sodium (Protonix Inj) 40 mg IVP Q12H [facility] Last Admin: 10/08/18 09:48 Dose: 40 mg Physical Exam - Constitutional Appears: Well, No Acute Distress - Head Exam Head Exam: ATRAUMATIC, NORMOCEPHALIC - Eye Exam Eye Exam: EOMI, Normal appearance - ENT Exam ENT Exam: Mucous Membranes Moist - Neck Exam Neck exam: Positive for: Normal Inspection - Respiratory Exam Respiratory Exam: Clear to Auscultation Bilateral. absent: Rales, Rhonchi, Wheezes, Respiratory Distress - Cardiovascular Exam Cardiovascular Exam: REGULAR RHYTHM, +S1, +S2. absent: Bradycardia, Tachycardia, Gallop, Systolic Murmur - GI/Abdominal Exam GI & Abdominal Exam: Guarding, Normal Bowel Sounds, Soft, Tenderness (Abdomen v fish tender to palpation especially around surgical site) Additional comments: Midline abdominal dressing C/D/I - Extremities Exam Extremities exam: Positive for: normal inspection. Negative for: calf tenderness, pedal edema - Neurological Exam Neurological exam: Alert, CN II-XII Intact, Oriented x3 - Psychiatric Exam Psychiatric exam: Normal Affect, Normal Mood - Skin Skin Exam: Dry, Intact, Normal Color, Warm Results - Vital Signs Recent Vital Signs: Last Vital Signs Temp 98.5 F 10/08/18 07:00 Pulse 88 10/08/18 07:00 Resp 20 10/08/18 07:00 BP 123/54 L 10/08/18 07:00 Pulse Ox 94 L 10/08/18 07:00 - Labs Result Diagrams: 10/08/18 16:38 10/08/18 16:38 Labs: Laboratory Results - last 24 hr 10/07/18 10/07/18 10/07/18 16:00 16:00 16:00 WBC 11.7 H RBC 2.58 L Hgb 7.7 L Hct 23.1 L MCV 89.8 D MCH 29.9 MCHC 33.2 RDW 17.6 H Plt Count 250 MPV 7.6 Neut % (Auto) 76.8 H Lymph % (Auto) 13.5 L [place] % (Auto) 8.1 Eos % (Auto) 0.9 Baso % (Auto) 0.7 Neut # (Auto) 9.0 H Lymph # (Auto) 1.6 [place] # (Auto) 1.0 H Eos # (Auto) 0.1 Baso # (Auto) 0.1 PT 12.0 INR 1.1 APTT 28 Sodium 136 Potassium 4.1 Chloride 96 L Carbon Dioxide 29 Anion Gap 15 BUN 20 H Creatinine 0.7 Est GFR ( Amer) > 60 Est GFR (Non-Af Amer) > 60 POC Glucose (mg/dL) Random Glucose 86 Calcium 9.7 Total Bilirubin 0.3 AST 31 ALT 19 Alkaline Phosphatase 67 Troponin I 0.0480 Total Protein 6.6 Albumin 3.7 Globulin 2.9 Albumin/Globulin Ratio 1.3 Lipase 65 Urine Color Urine Clarity Urine pH Ur Specific [place] Urine Protein Urine Glucose (UA) Urine Ketones Urine Blood Urine Nitrate Urine Bilirubin Urine Urobilinogen Ur Leukocyte Esterase Urine WBC (Auto) Urine RBC (Auto) Ur Squamous Epith Cells Blood Type Antibody Screen 10/07/18 10/07/18 10/07/18 16:37 16:40 18:01 WBC RBC Hgb Hct MCV MCH MCHC RDW Plt Count MPV Neut % (Auto) Lymph % (Auto) [place] % (Auto) Eos % (Auto) Baso % (Auto) Neut # (Auto) Lymph # (Auto) [place] # (Auto) Eos # (Auto) Baso # (Auto) PT INR APTT Sodium Potassium Chloride Carbon Dioxide Anion Gap BUN Creatinine Est GFR ( Amer) Est GFR (Non-Af Amer) POC Glucose (mg/dL) 82 Random Glucose Calcium Total Bilirubin AST ALT Alkaline Phosphatase Troponin I Total Protein Albumin Globulin Albumin/Globulin Ratio Lipase Urine Color Yellow Urine Clarity Clear Urine pH 7.0 Ur Specific [place] 1.012 Urine Protein 2+ H Urine Glucose (UA) Normal Urine Ketones Negative Urine Blood Negative Urine Nitrate Negative Urine Bilirubin Negative Urine Urobilinogen Normal Ur Leukocyte Esterase Neg Urine WBC (Auto) 2 Urine RBC (Auto) 1 Ur Squamous Epith Cells < 1 Blood Type O POSITIVE Antibody Screen Negative 10/07/18 10/07/18 10/07/18 18:57 21:41 22:29 WBC RBC Hgb Hct MCV MCH MCHC RDW Plt Count MPV Neut % (Auto) Lymph % (Auto) [place] % (Auto) Eos % (Auto) Baso % (Auto) Neut # (Auto) Lymph # (Auto) [place] # (Auto) Eos # (Auto) Baso # (Auto) PT INR APTT Sodium Potassium Chloride Carbon Dioxide Anion Gap BUN Creatinine Est GFR ( Amer) Est GFR (Non-Af Amer) POC Glucose (mg/dL) 73 68 136 H Random Glucose Calcium Total Bilirubin AST ALT Alkaline Phosphatase Troponin I Total Protein Albumin Globulin Albumin/Globulin Ratio Lipase Urine Color Urine Clarity Urine pH Ur Specific [place] Urine Protein Urine Glucose (UA) Urine Ketones Urine Blood Urine Nitrate Urine Bilirubin Urine Urobilinogen Ur Leukocyte Esterase Urine WBC (Auto) Urine RBC (Auto) Ur Squamous Epith Cells Blood Type Antibody Screen 10/08/18 10/08/18 10/08/18 01:54 06:30 10:30 WBC RBC Hgb Hct MCV MCH MCHC RDW Plt Count MPV Neut % (Auto) Lymph % (Auto) [place] % (Auto) Eos % (Auto) Baso % (Auto) Neut # (Auto) Lymph # (Auto) [place] # (Auto) Eos # (Auto) Baso # (Auto) PT INR APTT Sodium 138 Potassium 3.9 Chloride 103 Carbon Dioxide 26 Anion Gap 13 BUN 13 Creatinine 0.7 Est GFR ( Amer) > 60 Est GFR (Non-Af Amer) > 60 POC Glucose (mg/dL) 90 111 H Random Glucose 132 H Calcium 9.3 Total Bilirubin 1.1 AST 42 H D ALT 26 Alkaline Phosphatase 80 Troponin I Total Protein 6.6 Albumin 3.7 Globulin 2.9 Albumin/Globulin Ratio 1.3 Lipase Urine Color Urine Clarity Urine pH Ur Specific [place] Urine Protein Urine Glucose (UA) Urine Ketones Urine Blood Urine Nitrate Urine Bilirubin Urine Urobilinogen Ur Leukocyte Esterase Urine WBC (Auto) Urine RBC (Auto) Ur Squamous Epith Cells Blood Type Antibody Screen 10/08/18 10/08/18 10:30 11:58 WBC 14.1 H RBC 3.64 L Hgb 11.2 D Hct 32.9 L MCV 90.4 MCH 30.8 MCHC 34.1 RDW 17.2 H Plt Count 223 MPV 8.0 Neut % (Auto) 76.8 H Lymph % (Auto) 12.0 L [place] % (Auto) 8.6 Eos % (Auto) 1.9 Baso % (Auto) 0.7 Neut # (Auto) 10.8 H Lymph # (Auto) 1.7 [place] # (Auto) 1.2 H Eos # (Auto) 0.3 Baso # (Auto) 0.1 PT INR APTT Sodium Potassium Chloride Carbon Dioxide Anion Gap BUN Creatinine Est GFR ( Amer) Est GFR (Non-Af Amer) POC Glucose (mg/dL) 167 H Random Glucose Calcium Total Bilirubin AST ALT Alkaline Phosphatase Troponin I Total Protein Albumin Globulin Albumin/Globulin Ratio Lipase Urine Color Urine Clarity Urine pH Ur Specific [place] Urine Protein Urine Glucose (UA) Urine Ketones Urine Blood Urine Nitrate Urine Bilirubin Urine Urobilinogen Ur Leukocyte Esterase Urine WBC (Auto) Urine RBC (Auto) Ur Squamous Epith Cells Blood Type Antibody Screen Assessment & Plan - Assessment and Plan (Free Text) Assessment: Patient is a 73 year old female with a PMHx of diabetes, hypertension, osteoporosis, CAD, PVD, COPD, and hyperlipidemia presenting with black stool associated with abdominal pain x [address] abd showed acute appendicitis and patient is s/p open appendectomy. Plan: Neuro: - Patient is AAO X 3 Cardiopulmonary: Elevated Tropnonins - Troponin: 0.325 - Repeats troponins: f/u - EKG: f/u - Cardiology consulted, Dr. Logan HTN - Cozaar 25mg PO QD - Bisoprolol 5mg PO QD Pulm: - CXR (10/08): No active pulmonary disease. Mild pulmonary venous congestion. GI: Acute appendicitis - CT Abd/pelvis (10/07) : Acute appendicitis. The appendix extends from a pelvic cecum to a retrocecal location in the right lower quadrant. This appears to be uncomplicated without evidence of drainable collection, loculated air or free air. - Surgery consulted, Dr. Rankin - GI consulted, Dr. Betancur - Ciprofloxacin 400mg IV Q12 (Started on 10/07) - Metronidazole 500mg IV Q12 (Started on 10/08) - Zofran 4mg IV Q4 PRN - Dilaudid 4mg IV Q4 PRN - NS @ 100mLs/hr Transaminitis - AST/ALT: 42/26 - Continue to monitor Endo: DM-2 - ISS - Accuchecks ACHS - Hypoglycemia protocol Heme: Normocytic anemia - Hb: 7.7 --> 11.2 - 1 unit PRBC transfused on 10/07 Renal: Hypomagnesemia - Replete as needed - Continue to monitor ID: Leukocytosis - WBC: 11.7 --> 14.1 - Patient afebrile - Ciprofloxacin 400mg IV Q12 (Started on 10/07) - Metronidazole 500mg IV Q12 (Started on 10/08) Prophylaxis: - Protonix 40mg IV Q12 - SCD's Case discussed with Dr. Nolvia Bautista, PGY-1 <Valeriano Burger - Last Filed: 10/09/18 09:50> Meds - Medications Medications: Current Medications Acetaminophen (Tylenol 325mg Tab) 650 mg PO Q6 PRN PRN Reason: Fever >100.4 F Last Admin: 10/09/18 06:37 Dose: 650 mg Albumin Human (Albumin Human 25% (12.5 Gm/50 Ml)) 25 gm IV Q8H [facility] Stop: 10/10/18 00:16 Bisoprolol Fumarate (Zebeta) 5 mg PO DAILY [facility] Last Admin: 10/08/18 09:49 Dose: Not Given Dextrose (Dextrose 50% Inj) 0 ml IV STAT PRN; Protocol PRN Reason: Hypoglycemia Protocol Dextrose (Glutose 15) 0 gm PO ONCE PRN; Protocol PRN Reason: Hypoglycemia Protocol Enoxaparin Sodium (Lovenox) 60 mg SC Q12 [facility] Glucagon (Glucagen Diagnostic Kit) 0 mg IM STAT PRN; Protocol PRN Reason: Hypoglycemia Protocol Hydromorphone HCl (Dilaudid) 0.5 mg IVP Q4H PRN PRN Reason: Pain, moderate (4-7) Last Admin: 10/09/18 02:24 Dose: 0.5 mg Hydromorphone/Sodium Chloride (Dilaudid [place] [employer]) 6 mg IV Q4H PRN; Protocol PRN Reason: Pain, severe (8-10) Dextrose (Dextrose 5% In Water 1000 Ml) 1,000 mls @ 0 mls/hr IV .Q0M PRN; Protocol PRN Reason: Hypoglycemia Protocol Ciprofloxacin (Cipro 400mg/200ml Dsw) 400 mg in 200 mls @ 133 mls/hr IVPB Q12H [facility]; Protocol Last Admin: 10/08/18 21:54 Dose: 133 mls/hr Metronidazole (Flagyl) 500 mg in 100 mls @ 100 mls/hr IVPB Q8H [facility]; Protocol Last Admin: 10/09/18 00:06 Dose: 100 mls/hr Sodium Chloride (Sodium Chloride 0.9%) 1,000 mls @ 125 mls/hr IV .Q8H [facility] Insulin Aspart (Novolog) 0 unit SC Q6H [facility]; Protocol Last Admin: 10/09/18 07:00 Dose: Not Given Ondansetron HCl (Zofran Inj) 4 mg IVP Q4H PRN PRN Reason: Nausea/Vomiting Pantoprazole Sodium (Protonix Inj) 40 mg IVP Q12H [facility] Last Admin: 10/08/18 21:43 Dose: 40 mg Vitamin A (Vitamin A & D Oint Ud Foilpak) 1 ea TOP Q6 PRN PRN Reason: for dry lips Last Admin: 10/08/18 21:43 Dose: 1 ea Results - Vital Signs Recent Vital Signs: Last Vital Signs Temp 101 F H 10/09/18 06:37 Pulse 109 H 10/09/18 06:45 Resp 21 10/09/18 06:45 BP 141/49 L 10/09/18 07:03 Pulse Ox 97 10/09/18 06:45 - Labs Result Diagrams: 10/09/18 06:17 10/09/18 06:17 Labs: Laboratory Results - last 24 hr 10/07/18 10/08/18 10/08/18 18:01 10:30 10:30 WBC 14.1 H RBC 3.64 L Hgb 11.2 D Hct 32.9 L MCV 90.4 MCH 30.8 MCHC 34.1 RDW 17.2 H Plt Count 223 MPV 8.0 Neut % (Auto) 76.8 H Lymph % (Auto) 12.0 L [place] % (Auto) 8.6 Eos % (Auto) 1.9 Baso % (Auto) 0.7 Neut # (Auto) 10.8 H Lymph # (Auto) 1.7 [place] # (Auto) 1.2 H Eos # (Auto) 0.3 Baso # (Auto) 0.1 Neutrophils % (Manual) Band Neutrophils % Lymphocytes % (Manual) Monocytes % (Manual) Eosinophils % (Manual) Toxic Granulation Platelet Estimate Polychromasia Hypochromasia (manual) Basophilic Stippling Anisocytosis (manual) Puncture Site pCO2 pO2 HCO3 ABG pH ABG Total CO2 ABG O2 Saturation ABG Base Excess Rodo Test ABG Potassium A-a O2 Difference Respiratory Index Glucose Lactate Liter Flow FiO2 Sodium 138 Potassium 3.9 Chloride 103 Carbon Dioxide 26 Anion Gap 13 BUN 13 Creatinine 0.7 Est GFR ( Amer) > 60 Est GFR (Non-Af Amer) > 60 POC Glucose (mg/dL) Random Glucose 132 H Calcium 9.3 Phosphorus Magnesium Total Bilirubin 1.1 AST 42 H D ALT 26 Alkaline Phosphatase 80 Troponin I Total Protein 6.6 Albumin 3.7 Globulin 2.9 Albumin/Globulin Ratio 1.3 Arterial Blood Potassium Blood Type O POSITIVE Antibody Screen Negative 10/08/18 10/08/18 10/08/18 11:58 16:30 16:33 WBC RBC Hgb Hct MCV MCH MCHC RDW Plt Count MPV Neut % (Auto) Lymph % (Auto) [place] % (Auto) Eos % (Auto) Baso % (Auto) Neut # (Auto) Lymph # (Auto) [place] # (Auto) Eos # (Auto) Baso # (Auto) Neutrophils % (Manual) Band Neutrophils % Lymphocytes % (Manual) Monocytes % (Manual) Eosinophils % (Manual) Toxic Granulation Platelet Estimate Polychromasia Hypochromasia (manual) Basophilic Stippling Anisocytosis (manual) Puncture Site Raline pCO2 45 pO2 72 L HCO3 26.2 ABG pH 7.39 ABG Total CO2 28.6 H ABG O2 Saturation 97.2 ABG Base Excess 1.7 Rodo Test Na ABG Potassium 3.5 L A-a O2 Difference 128.0 Respiratory Index 1.8 Glucose 167 H Lactate 0.9 Liter Flow 4.0 FiO2 36.0 Sodium 137.0 Potassium Chloride 107.0 Carbon Dioxide Anion Gap BUN Creatinine Est GFR ( Amer) Est GFR (Non-Af Amer) POC Glucose (mg/dL) 167 H 60 L Random Glucose Calcium Phosphorus Magnesium Total Bilirubin AST ALT Alkaline Phosphatase Troponin I Total Protein Albumin Globulin Albumin/Globulin Ratio Arterial Blood Potassium 3.5 L Blood Type Antibody Screen 10/08/18 10/08/18 10/08/18 16:34 16:38 16:38 WBC 13.1 H RBC 3.18 L Hgb 9.4 L Hct 28.2 L MCV 88.7 MCH 29.7 MCHC 33.5 RDW 17.4 H Plt Count 201 MPV 7.5 Neut % (Auto) 85.4 H Lymph % (Auto) 8.3 L [place] % (Auto) 4.7 Eos % (Auto) 1.3 Baso % (Auto) 0.3 Neut # (Auto) 11.1 H Lymph # (Auto) 1.1 [place] # (Auto) 0.6 Eos # (Auto) 0.2 Baso # (Auto) 0.0 Neutrophils % (Manual) 87 H Band Neutrophils % 3 H Lymphocytes % (Manual) 6 L Monocytes % (Manual) 3 Eosinophils % (Manual) 1 Toxic Granulation Platelet Estimate Normal Polychromasia Slight Hypochromasia (manual) Slight Basophilic Stippling Anisocytosis (manual) Slight Puncture Site pCO2 pO2 HCO3 ABG pH ABG Total CO2 ABG O2 Saturation ABG Base Excess Rodo Test ABG Potassium A-a O2 Difference Respiratory Index Glucose Lactate Liter Flow FiO2 Sodium 132 Potassium 3.8 Chloride 99 Carbon Dioxide 27 Anion Gap 10 BUN 11 Creatinine 0.7 Est GFR ( Amer) > 60 Est GFR (Non-Af Amer) > 60 POC Glucose (mg/dL) 149 H Random Glucose 166 H Calcium 8.3 L Phosphorus 3.8 Magnesium 1.1 L Total Bilirubin 0.7 AST 39 H ALT 23 Alkaline Phosphatase 49 Troponin I 0.3250 H* Total Protein 5.1 L Albumin 2.7 L D Globulin 2.5 Albumin/Globulin Ratio 1.1 Arterial Blood Potassium Blood Type Antibody Screen 10/08/18 10/08/18 10/09/18 23:36 23:55 06:17 WBC 13.3 H RBC 2.93 L Hgb 8.8 L Hct 26.2 L MCV 89.5 MCH 29.9 MCHC 33.5 RDW 17.4 H Plt Count 203 MPV 7.8 Neut % (Auto) 86.2 H Lymph % (Auto) 6.2 L [place] % (Auto) 7.1 Eos % (Auto) 0.3 Baso % (Auto) 0.2 Neut # (Auto) 11.5 H Lymph # (Auto) 0.8 L [place] # (Auto) 1.0 H Eos # (Auto) 0.0 Baso # (Auto) 0.0 Neutrophils % (Manual) 79 H Band Neutrophils % 8 H Lymphocytes % (Manual) 5 L Monocytes % (Manual) 8 Eosinophils % (Manual) Toxic Granulation Present Platelet Estimate Normal Polychromasia Slight Hypochromasia (manual) Slight Basophilic Stippling Slight Anisocytosis (manual) Moderate Puncture Site pCO2 pO2 HCO3 ABG pH ABG Total CO2 ABG O2 Saturation ABG Base Excess [place]o Test ABG Potassium A-a O2 Difference Respiratory Index Glucose Lactate Liter Flow FiO2 Sodium Potassium Chloride Carbon Dioxide Anion Gap BUN Creatinine Est GFR ( Amer) Est GFR (Non-Af Amer) POC Glucose (mg/dL) 190 H Random Glucose Calcium Phosphorus Magnesium Total Bilirubin AST ALT Alkaline Phosphatase Troponin I 0.6810 H* Total Protein Albumin Globulin Albumin/Globulin Ratio Arterial Blood Potassium Blood Type Antibody Screen 10/09/18 06:17 WBC RBC Hgb Hct MCV MCH MCHC RDW Plt Count MPV Neut % (Auto) Lymph % (Auto) [place] % (Auto) Eos % (Auto) Baso % (Auto) Neut # (Auto) Lymph # (Auto) [place] # (Auto) Eos # (Auto) Baso # (Auto) Neutrophils % (Manual) Band Neutrophils % Lymphocytes % (Manual) Monocytes % (Manual) Eosinophils % (Manual) Toxic Granulation Platelet Estimate Polychromasia Hypochromasia (manual) Basophilic Stippling Anisocytosis (manual) Puncture Site pCO2 pO2 HCO3 ABG pH ABG Total CO2 ABG O2 Saturation ABG Base Excess [place]o Test ABG Potassium A-a O2 Difference Respiratory Index Glucose Lactate Liter Flow FiO2 Sodium 131 L Potassium 3.8 Chloride 101 Carbon Dioxide 25 Anion Gap 9 L BUN 11 Creatinine 0.9 Est GFR ( Amer) > 60 Est GFR (Non-Af Amer) > 60 POC Glucose (mg/dL) Random Glucose 130 H Calcium 8.2 L Phosphorus 3.8 Magnesium 1.6 Total Bilirubin 0.8 AST 34 ALT 28 Alkaline Phosphatase 58 Troponin I 0.2590 H* Total Protein 5.2 L Albumin 2.7 L Globulin 2.5 Albumin/Globulin Ratio 1.1 Arterial Blood Potassium Blood Type Antibody Screen Assessment & Plan - Assessment and Plan (Free Text) Plan: Above patient seen and examined at bedside. Patient post op. -monitor urine output, HR -continue pain control with DISH CARRIER -empriicaly on abx -serial lactic, trop and cbc -incentive spirometry - Date & Time Date: 10/08/18 Time: 19:00
[2018-10-08 16:40] LABS: ARTERIAL BLOOD GAS HCO3 26.2 mmol/L (21-28); ARTERIAL BLOOD GAS O2 SAT 97.2 % (95-98); ARTERIAL BLOOD GAS PCO2 45 mm/Hg (35-45); ARTERIAL BLOOD GAS PH 7.39 (7.35-7.45); ARTERIAL BLOOD GAS PO2 72 mm/Hg (80-100); ARTERIAL BLOOD GAS TCO2 28.6 mmol/L (22-28)
[2018-10-08 16:41] LABS: BASO % 0.3 % (0.0-2.0); EOS # 0.2 K/uL (0.0-0.7); EOS % 1.3 % (0.0-4.0); HEMOGLOBIN 9.4 g/dL (11.0-16.0); LYMPH # 1.1 K/uL (1.0-4.3); LYMPH % 8.3 % (20.0-40.0); MEAN CELL VOLUME 88.7 fL (81.0-99.0); MEAN CORPUSCULAR HEMOGLOBIN 29.7 pg (27.0-31.0); MEAN CORPUSCULAR HGB CONC 33.5 g/dL (33.0-37.0); MEAN PLATELET VOLUME 7.5 fL (7.2-11.7); MONO # 0.6 K/uL (0.0-0.8); MONO % 4.7 % (0.0-10.0); NEUT # 11.1 K/uL (1.8-7.0); NEUT % 85.4 % (50.0-75.0); PLATELET COUNT 201 K/uL (130-400); RBC 3.18 Mil/uL (3.80-5.20); RED CELL DISTRIBUTION WIDTH 17.4 % (11.5-14.5); WHITE BLOOD COUNT 13.1 K/uL (4.8-10.8)
[2018-10-08 17:09] LABS: ALB/GLOB RATIO 1.1 (1.0-2.1); ALBUMIN 2.7 g/dL (3.5-5.0); ALT/SGPT 23 U/L (9-52); AST/SGOT 39 U/L (14-36); BLOOD UREA NITROGEN 11 mg/dL (7-17); CALCIUM 8.3 mg/dl (8.6-10.4); GFR NON-AFRICAN AMERICAN > 60
[2018-10-08] MEDS ORDERED: Lactated Ringer's 1,000 ML IV SCH (17:15)
--- NOTE | 2018-10-08 17:15 | RAD ---
Date of service: 10/08/2018 HISTORY: s/p OR COMPARISON: No prior. FINDINGS: LUNGS: Mild pulmonary vascular congestive changes with bibasilar atelectasis and or developing infiltrates. Probable see medium size left and small right effusions PLEURA: No significant pleural effusion identified, no pneumothorax apparent. CARDIOVASCULAR: Mild aortic atherosclerotic calcification present. Cardiomegaly cardiac size. . OSSEOUS STRUCTURES: No significant abnormalities. VISUALIZED UPPER ABDOMEN: Normal. OTHER FINDINGS: None. IMPRESSION: Mild pulmonary vascular congestive changes with bibasilar atelectasis and or developing infiltrates. Probable see medium size left and small right effusions
[2018-10-08 17:26] LABS: ANISOCYTOSIS SLIGHT; BANDS 3 % (0-2); EOSINOPHIL 1 % (0-4); LYMPHOCYTE 6 % (20-40); MONOCYTE 3 % (0-10); NEUTROPHIL 87 % (50-75); PLATELET ESTIMATE NORMAL (NORMAL); TOTAL CELLS COUNTED 100
[2018-10-08 17:27] LABS: HYPOCHROMIC SLIGHT; POLYCHROMIC SLIGHT
[2018-10-08] MEDS ORDERED: Magnesium Sulfate 1 gm in D5W 1 GM/100 ML BAG IVPB ONE (17:34)
[2018-10-08] MEDS: HYDROmorphone 0.5 mg/0.5 ml ISec IVP PRN ×3 (18:08→22:14)
[2018-10-08] MEDS: Lactated Ringer's 1,000 ML IV SCH (19:00)
[2018-10-08] MEDS: Vitamins A & D Oint UD Foilpak TOP PRN (21:43)
--- NOTE | 2018-10-08 23:53 | CARD ---
APPROVED REPORT Date of service: 10/07/2018 EKG Measurement Heart [id number] <Conclusion> Normal sinus rhythm Check leads placement ST & T wave abnormality, consider inferior ischemia Abnormal ECG
--- NOTE | 2018-10-09 00:05 | PQF ---
PROVIDER RESPONSE TEXT: Anemia of acute blood loss likely GI bleeding REVIEWER QUERY TEXT: Anemia Type Anemia is documented in the Medical Record. Please specify the cause (includes suspected or probable cause) Such as:[[Acute blood loss anemia due to GI Bleeding::Acute blood loss anemia due to GI bleeding:: -- Other, please specify -- Unable to determine The patient's Clinical Indicators include: ?73 year old female with black stool associated with abdominal pain for 3 days. H/P: Gastrointestinal/Abdominal: Bowel Sounds (hypoactive), Soft, Tenderness moderate, diffuse, R>L, No Di stention, No Guarding, No Rebound. Rectal: Heme Positive (brown stool), No Hemorrhoids, No Mass, No Tenderness LABS: WBC: 11.7/14.1 - RBC: 2.58/3.64 - HGB: 7.7/11.2 - HCT: 23.1/32.9 Patient received transfusion. Query created by: Wyatt Naylor on 10/08/2018 11:30 AM Electronically signed by: Kd Ledesma MD 10/09/2018 12:01 AM
[2018-10-09] MEDS: metroNIDAZOLE IV 500 mg/100 ml 500 MG/100 ML BAG IVPB SCH ×4 (00:06→23:32)
[2018-10-09] MEDS: (Novolog) Insulin Aspart, Recombinant 100 u/ml 10 ml vial SC SCH ×4 (00:10→17:45)
--- NOTE | 2018-10-09 01:37 | OP ---
DATE OF OPERATION: 10/08/2018 PREOPERATIVE DIAGNOSES: Abdominal pain and acute appendicitis. POSTOPERATIVE DIAGNOSES: Abdominal pain and acute appendicitis. PROCEDURES CARRIED OUT: Exploratory laparotomy, lysis of adhesions and appendectomy. SURGEON: Terrell Rankin Jr., MD ADMISSIONS COUNSELOR: Lincoln Ayers DO ANESTHESIOLOGIST: Mr. Giron. INDICATIONS: The patient is an elderly woman with a history of extensive peripheral vascular disease, who presents with abdominal pain, GI bleeding and anemia. Source of her blood loss was not known. Preoperatively, the CAT scan demonstrated an inflamed appendix and a very long appendix. OPERATIVE FINDINGS: We could not conduct a complete exploratory laparotomy. The patient had multiple previous abdominal operations and was densely scarred and adhesed. It took a great deal of time, even though we are via midline incision, to identify the appendix. There was an inflamed and enlarged tip. The rest of the intraoperative findings were unremarkable except for adhesions, and as I said, we were unable to completely examine the entire small bowel, but what we examined was normal. There was an abnormality detected on the spleen on the CAT scan. We did not go in to renew that area and we were not able to do so due to adhesions. The appendix was not ruptured. DESCRIPTION OF PROCEDURE: The patient was given general anesthesia and intravenous antibiotics. Venodyne boots were applied. A standard midline incision was carried out. A maegan was placed across the crossover graft, which was on the lower part of her abdomen. Initially, there were dense adhesions that made the entire operation difficult. Eventually, we were able to mobilize the cecum and there was the appendix, but it was the very long appendix tucked down into the flank and exactly as seen on CAT scan. After we divided the base of the appendix with a TA-30 stapler, we then removed it with the use of LigaSure device, obtained hemostasis and removed it. Blood loss for the procedure was 100 mL. Major difficulty during the operation was just the previous abdominal adhesions, which prevented a complete exploration of the abdomen. We then terminated the procedure closing the abdomen with running sutures of Novafil and PDS and closed the skin with skin clips. No drains were left. Specimen was the appendix. No culture was taken. Terrell Rankin Jr., MD
[2018-10-09] MEDS: HYDROmorphone 0.5 mg/0.5 ml ISec IVP PRN (02:24)
[2018-10-09] MEDS: Lactated Ringer's 1,000 ML IV SCH ×2 (02:30→06:40)
--- NOTE | 2018-10-09 04:39 | CP.PCM.CON ---
History of Present Illness - History of Present Illness History of Present Illness: 73 F s/p Emergency Appendectomy Hx of CAD and PAD Needs therapeutic Lovenox and ASA If cleared by Surgery and GI will initiate (Hx of GI bleed) B Blockers and Statins once PO resumed Hemodynamaically stable denies chest pain and dyspnea Past Patient History - Infectious Disease Hx of Infectious Diseases: None - Past Medical History & Family History Past Medical History?: Yes - Past Social History Smoking Status: Current Some Days Smoker - CARDIAC Hx Hypercholesterolemia: Yes Hx Hypertension: Yes - PULMONARY Hx Asthma: Yes Hx Bronchitis: Yes Hx Chronic Obstructive Pulmonary Disease (COPD): Yes Hx Pneumonia: Yes - NEUROLOGICAL Hx Neurological Disorder: No - HEENT Hx HEENT Problems: Yes Other/Comment: WEAR GLASSES - RENAL Hx Chronic Kidney Disease: No - ENDOCRINE/METABOLIC Hx Diabetes Mellitus Type 2: Yes - HEMATOLOGICAL/ONCOLOGICAL Hx Human Immunodeficiency Virus (HIV): No - INTEGUMENTARY Hx Dermatological Problems: No - MUSCULOSKELETAL/RHEUMATOLOGICAL Hx Arthritis: Yes Hx Fractures: Yes (RT.FOOT/CASTED NO OR) Hx Osteoporosis: Yes - GASTROINTESTINAL Hx Diverticulitis: Yes - GENITOURINARY/GYNECOLOGICAL Hx Genitourinary Disorders: No - PSYCHIATRIC Hx Anxiety: Yes Hx Substance Use: No - SURGICAL HISTORY Hx Surgeries: Yes Hx Angiogram: Yes (Stenting bilateral legs) Hx Breast Biopsy: Yes (RT. 11 yrs old) Hx Herniorrhaphy: Yes (UMBILICAL) Hx Hysterectomy: Yes (RYANN) Hx Orthopedic Surgery: Yes (OMAR. BUNIONECTOMY) Hx Tubal Ligation: Yes - ANESTHESIA Hx Anesthesia: Yes Hx Anesthesia Reactions: No Hx Malignant Hyperthermia: No Meds Allergies/Adverse Reactions: Allergies Allergy/AdvReac Type Severity Reaction Status Date / Time Penicillins Allergy Intermediate SWELLING Verified 08/06/18 14:23 Sulfa (Sulfonamide Allergy Intermediate RASH Verified 08/06/18 14:23 Antibiotics) tomato AdvReac Intermediate GI UPSET Verified 08/06/18 14:23 - Medications Medications: Current Medications Bisoprolol Fumarate (Zebeta) 5 mg PO DAILY [facility] Last Admin: 10/08/18 09:49 Dose: Not Given Dextrose (Dextrose 50% Inj) 0 ml IV STAT PRN; Protocol PRN Reason: Hypoglycemia Protocol Dextrose (Glutose 15) 0 gm PO ONCE PRN; Protocol PRN Reason: Hypoglycemia Protocol Glucagon (Glucagen Diagnostic Kit) 0 mg IM STAT PRN; Protocol PRN Reason: Hypoglycemia Protocol Hydromorphone HCl (Dilaudid) 0.5 mg IVP Q4H PRN PRN Reason: Pain, moderate (4-7) Last Admin: 10/09/18 02:24 Dose: 0.5 mg Hydromorphone/Sodium Chloride (Dilaudid Professional Bass Fisher) 4 mg IV Q4H PRN; Protocol PRN Reason: Pain, severe (8-10) Dextrose (Dextrose 5% In Water 1000 Ml) 1,000 mls @ 0 mls/hr IV .Q0M PRN; Protocol PRN Reason: Hypoglycemia Protocol Ciprofloxacin (Cipro 400mg/200ml Dsw) 400 mg in 200 mls @ 133 mls/hr IVPB Q12H [facility]; Protocol Last Admin: 10/08/18 21:54 Dose: 133 mls/hr Metronidazole (Flagyl) 500 mg in 100 mls @ 100 mls/hr IVPB Q8H [facility]; Protocol Last Admin: 10/09/18 00:06 Dose: 100 mls/hr Lactated Ringer's (Lactated Ringer's) 1,000 mls @ 125 mls/hr IV .Q8H [facility] Last Admin: 10/09/18 02:30 Dose: Not Given Insulin Aspart (Novolog) 0 unit SC Q6H [facility]; Protocol Last Admin: 10/09/18 00:10 Dose: 1 units Losartan Potassium (Cozaar) 25 mg PO DAILY [facility] Last Admin: 10/08/18 09:48 Dose: 25 mg Ondansetron HCl (Zofran Inj) 4 mg IVP Q4H PRN PRN Reason: Nausea/Vomiting Pantoprazole Sodium (Protonix Inj) 40 mg IVP Q12H [facility] Last Admin: 10/08/18 21:43 Dose: 40 mg Vitamin A (Vitamin A & D Oint Ud Foilpak) 1 ea TOP Q6 PRN PRN Reason: for dry lips Last Admin: 10/08/18 21:43 Dose: 1 ea Results - Vital Signs Recent Vital Signs: Last Vital Signs Temp 98.9 F 10/09/18 00:00 Pulse 95 H 10/09/18 01:00 Resp 20 10/09/18 01:00 BP 108/35 L 10/09/18 00:59 Pulse Ox 98 10/09/18 01:00 - Labs Result Diagrams: 10/08/18 16:38 10/08/18 16:38 Labs: Laboratory Results - last 24 hr 10/07/18 10/08/18 10/08/18 18:01 06:30 10:30 WBC RBC Hgb Hct MCV MCH MCHC RDW Plt Count MPV Neut % (Auto) Lymph % (Auto) [place] % (Auto) Eos % (Auto) Baso % (Auto) Neut # (Auto) Lymph # (Auto) [place] # (Auto) Eos # (Auto) Baso # (Auto) Neutrophils % (Manual) Band Neutrophils % Lymphocytes % (Manual) Monocytes % (Manual) Eosinophils % (Manual) Platelet Estimate Polychromasia Hypochromasia (manual) Anisocytosis (manual) Puncture Site pCO2 pO2 HCO3 ABG pH ABG Total CO2 ABG O2 Saturation ABG Base Excess Rodo Test ABG Potassium A-a O2 Difference Respiratory Index Glucose Lactate Liter Flow FiO2 Sodium 138 Potassium 3.9 Chloride 103 Carbon Dioxide 26 Anion Gap 13 BUN 13 Creatinine 0.7 Est GFR ( Amer) > 60 Est GFR (Non-Af Amer) > 60 POC Glucose (mg/dL) 111 H Random Glucose 132 H Calcium 9.3 Phosphorus Magnesium Total Bilirubin 1.1 AST 42 H D ALT 26 Alkaline Phosphatase 80 Troponin I Total Protein 6.6 Albumin 3.7 Globulin 2.9 Albumin/Globulin Ratio 1.3 Arterial Blood Potassium Blood Type O POSITIVE Antibody Screen Negative 10/08/18 10/08/18 10/08/18 10:30 11:58 16:30 WBC 14.1 H RBC 3.64 L Hgb 11.2 D Hct 32.9 L MCV 90.4 MCH 30.8 MCHC 34.1 RDW 17.2 H Plt Count 223 MPV 8.0 Neut % (Auto) 76.8 H Lymph % (Auto) 12.0 L [place] % (Auto) 8.6 Eos % (Auto) 1.9 Baso % (Auto) 0.7 Neut # (Auto) 10.8 H Lymph # (Auto) 1.7 [place] # (Auto) 1.2 H Eos # (Auto) 0.3 Baso # (Auto) 0.1 Neutrophils % (Manual) Band Neutrophils % Lymphocytes % (Manual) Monocytes % (Manual) Eosinophils % (Manual) Platelet Estimate Polychromasia Hypochromasia (manual) Anisocytosis (manual) Puncture Site Raline pCO2 45 pO2 72 L HCO3 26.2 ABG pH 7.39 ABG Total CO2 28.6 H ABG O2 Saturation 97.2 ABG Base Excess 1.7 Rodo Test Na ABG Potassium 3.5 L A-a O2 Difference 128.0 Respiratory Index 1.8 Glucose 167 H Lactate 0.9 Liter Flow 4.0 FiO2 36.0 Sodium 137.0 Potassium Chloride 107.0 Carbon Dioxide Anion Gap BUN Creatinine Est GFR ( Amer) Est GFR (Non-Af Amer) POC Glucose (mg/dL) 167 H Random Glucose Calcium Phosphorus Magnesium Total Bilirubin AST ALT Alkaline Phosphatase Troponin I Total Protein Albumin Globulin Albumin/Globulin Ratio Arterial Blood Potassium 3.5 L Blood Type Antibody Screen 10/08/18 10/08/18 10/08/18 16:33 16:34 16:38 WBC 13.1 H RBC 3.18 L Hgb 9.4 L Hct 28.2 L MCV 88.7 MCH 29.7 MCHC 33.5 RDW 17.4 H Plt Count 201 MPV 7.5 Neut % (Auto) 85.4 H Lymph % (Auto) 8.3 L [place] % (Auto) 4.7 Eos % (Auto) 1.3 Baso % (Auto) 0.3 Neut # (Auto) 11.1 H Lymph # (Auto) 1.1 [place] # (Auto) 0.6 Eos # (Auto) 0.2 Baso # (Auto) 0.0 Neutrophils % (Manual) 87 H Band Neutrophils % 3 H Lymphocytes % (Manual) 6 L Monocytes % (Manual) 3 Eosinophils % (Manual) 1 Platelet Estimate Normal Polychromasia Slight Hypochromasia (manual) Slight Anisocytosis (manual) Slight Puncture Site pCO2 pO2 HCO3 ABG pH ABG Total CO2 ABG O2 Saturation ABG Base Excess Rodo Test ABG Potassium A-a O2 Difference Respiratory Index Glucose Lactate Liter Flow FiO2 Sodium Potassium Chloride Carbon Dioxide Anion Gap BUN Creatinine Est GFR ( Amer) Est GFR (Non-Af Amer) POC Glucose (mg/dL) 60 L 149 H Random Glucose Calcium Phosphorus Magnesium Total Bilirubin AST ALT Alkaline Phosphatase Troponin I Total Protein Albumin Globulin Albumin/Globulin Ratio Arterial Blood Potassium Blood Type Antibody Screen 10/08/18 10/08/18 10/08/18 16:38 23:36 23:55 WBC RBC Hgb Hct MCV MCH MCHC RDW Plt Count MPV Neut % (Auto) Lymph % (Auto) [place] % (Auto) Eos % (Auto) Baso % (Auto) Neut # (Auto) Lymph # (Auto) [place] # (Auto) Eos # (Auto) Baso # (Auto) Neutrophils % (Manual) Band Neutrophils % Lymphocytes % (Manual) Monocytes % (Manual) Eosinophils % (Manual) Platelet Estimate Polychromasia Hypochromasia (manual) Anisocytosis (manual) Puncture Site pCO2 pO2 HCO3 ABG pH ABG Total CO2 ABG O2 Saturation ABG Base Excess Rodo Test ABG Potassium A-a O2 Difference Respiratory Index Glucose Lactate Liter Flow FiO2 Sodium 132 Potassium 3.8 Chloride 99 Carbon Dioxide 27 Anion Gap 10 BUN 11 Creatinine 0.7 Est GFR ( Amer) > 60 Est GFR (Non-Af Amer) > 60 POC Glucose (mg/dL) 190 H Random Glucose 166 H Calcium 8.3 L Phosphorus 3.8 Magnesium 1.1 L Total Bilirubin 0.7 AST 39 H ALT 23 Alkaline Phosphatase 49 Troponin I 0.3250 H* 0.6810 H* Total Protein 5.1 L Albumin 2.7 L D Globulin 2.5 Albumin/Globulin Ratio 1.1 Arterial Blood Potassium Blood Type Antibody Screen
[2018-10-09] MEDS ORDERED: Lactated Ringer's 500 ML IV ONE (06:15)
[2018-10-09 06:22] LABS: BASO % 0.2 % (0.0-2.0); EOS % 0.3 % (0.0-4.0); HEMOGLOBIN 8.8 g/dL (11.0-16.0); LYMPH # 0.8 K/uL (1.0-4.3); LYMPH % 6.2 % (20.0-40.0); MEAN CELL VOLUME 89.5 fL (81.0-99.0); MEAN CORPUSCULAR HEMOGLOBIN 29.9 pg (27.0-31.0); MEAN CORPUSCULAR HGB CONC 33.5 g/dL (33.0-37.0); MEAN PLATELET VOLUME 7.8 fL (7.2-11.7); MONO % 7.1 % (0.0-10.0); NEUT # 11.5 K/uL (1.8-7.0); NEUT % 86.2 % (50.0-75.0); NRBC % 0.1 % (0.0-2.0); PLATELET COUNT 203 K/uL (130-400); RBC 2.93 Mil/uL (3.80-5.20); RED CELL DISTRIBUTION WIDTH 17.4 % (11.5-14.5); WHITE BLOOD COUNT 13.3 K/uL (4.8-10.8)
[2018-10-09 06:46] LABS: ALB/GLOB RATIO 1.1 (1.0-2.1); ALBUMIN 2.7 g/dL (3.5-5.0); ALT/SGPT 28 U/L (9-52); AST/SGOT 34 U/L (14-36); BLOOD UREA NITROGEN 11 mg/dL (7-17); CALCIUM 8.2 mg/dl (8.6-10.4); GFR NON-AFRICAN AMERICAN > 60
[2018-10-09 08:58] LABS: BANDS 8 % (0-2); LYMPHOCYTE 5 % (20-40); MONOCYTE 8 % (0-10); NEUTROPHIL 79 % (50-75); PLATELET ESTIMATE NORMAL (NORMAL); TOTAL CELLS COUNTED 100
[2018-10-09 08:59] LABS: ANISOCYTOSIS MODERATE; HYPOCHROMIC SLIGHT; POLYCHROMIC SLIGHT; TOXIC GRANULATION PRESENT
[2018-10-09] MEDS: Sodium Chloride 0.9% 1,000 ML IV SCH ×2 (09:15→16:40)
--- NOTE | 2018-10-09 09:57 | CP.PCM.PN ---
Subjective - Date & Time of Evaluation Date of Evaluation: 10/09/18 Time of Evaluation: 09:54 - Subjective Subjective: General Surgery Consult Note for Dr. Rankin This 73F was seen and examined this AM at bedside. No acute events reported overnight. She reports appropriate incisional pain. She is not passing gas or moving her bowels. She denies any nausea or vomiting. She denies chest pain or SOB. Objective - Vital Signs/Intake and Output Vital Signs (last 24 hours): Temp Pulse Resp BP Pulse Ox 101 F H 109 H 21 141/49 L 97 10/09/18 06:37 10/09/18 06:45 10/09/18 06:45 10/09/18 07:03 10/09/18 06:45 Intake and Output: 10/09/18 10/09/18 06:59 18:59 Intake Total 1550 125 Output Total 340 30 Balance 1210 95 - Medications Medications: Current Medications Acetaminophen (Tylenol 325mg Tab) 650 mg PO Q6 PRN PRN Reason: Fever >100.4 F Last Admin: 10/09/18 06:37 Dose: 650 mg Albumin Human (Albumin Human 25% (12.5 Gm/50 Ml)) 25 gm IV Q8H [facility] Stop: 10/10/18 00:16 Bisoprolol Fumarate (Zebeta) 5 mg PO DAILY [facility] Last Admin: 10/08/18 09:49 Dose: Not Given Dextrose (Dextrose 50% Inj) 0 ml IV STAT PRN; Protocol PRN Reason: Hypoglycemia Protocol Dextrose (Glutose 15) 0 gm PO ONCE PRN; Protocol PRN Reason: Hypoglycemia Protocol Enoxaparin Sodium (Lovenox) 60 mg SC Q12 [facility] Glucagon (Glucagen Diagnostic Kit) 0 mg IM STAT PRN; Protocol PRN Reason: Hypoglycemia Protocol Hydromorphone HCl (Dilaudid) 0.5 mg IVP Q4H PRN PRN Reason: Pain, moderate (4-7) Last Admin: 10/09/18 02:24 Dose: 0.5 mg Hydromorphone/Sodium Chloride (Dilaudid Photograph Editor) 6 mg IV Q4H PRN; Protocol PRN Reason: Pain, severe (8-10) Dextrose (Dextrose 5% In Water 1000 Ml) 1,000 mls @ 0 mls/hr IV .Q0M PRN; Protocol PRN Reason: Hypoglycemia Protocol Ciprofloxacin (Cipro 400mg/200ml Dsw) 400 mg in 200 mls @ 133 mls/hr IVPB Q12H [facility]; Protocol Last Admin: 10/08/18 21:54 Dose: 133 mls/hr Metronidazole (Flagyl) 500 mg in 100 mls @ 100 mls/hr IVPB Q8H [facility]; Protocol Last Admin: 10/09/18 00:06 Dose: 100 mls/hr Sodium Chloride (Sodium Chloride 0.9%) 1,000 mls @ 125 mls/hr IV .Q8H [facility] Insulin Aspart (Novolog) 0 unit SC Q6H [facility]; Protocol Last Admin: 10/09/18 07:00 Dose: Not Given Ondansetron HCl (Zofran Inj) 4 mg IVP Q4H PRN PRN Reason: Nausea/Vomiting Pantoprazole Sodium (Protonix Inj) 40 mg IVP Q12H [facility] Last Admin: 10/08/18 21:43 Dose: 40 mg Vitamin A (Vitamin A & D Oint Ud Foilpak) 1 ea TOP Q6 PRN PRN Reason: for dry lips Last Admin: 10/08/18 21:43 Dose: 1 ea - Labs Labs: 10/09/18 06:17 10/09/18 06:17 PT 12.0 SECONDS (9.7-12.2) 10/07/18 16:00 INR 1.1 10/07/18 16:00 APTT 28 SECONDS (21-34) 10/07/18 16:00 - Constitutional Appears: Non-toxic, No Acute Distress - Head Exam Head Exam: ATRAUMATIC, NORMOCEPHALIC - Eye Exam Eye Exam: EOMI - ENT Exam ENT Exam: Mucous Membranes Moist - Respiratory Exam Respiratory Exam: NORMAL BREATHING PATTERN - Cardiovascular Exam Cardiovascular Exam: +S1, +S2 - GI/Abdominal Exam GI & Abdominal Exam: Soft, Tenderness. absent: Distended, Firm, Guarding, Rigid Additional comments: Dressing clean dry and intact abdomen appropriately tender. No bowel sounds - Extremities Exam Extremities Exam: Normal Inspection - Neurological Exam Neurological Exam: Alert, Awake - Psychiatric Exam Psychiatric exam: Normal Affect, Normal Mood - Skin Skin Exam: Dry, Intact Assessment and Plan - Assessment and Plan (Free Text) Assessment: 73F POD#1 s/p open appendectomy with extensive adhesiolysis NPO IVF Pain medication Monitor h/h out of bed futher recs per Dr. Chucho Ayers PGY3
[2018-10-09] MEDS ORDERED: Enoxaparin 60 mg Syringe SC SCH (10:00)
[2018-10-09] MEDS: Albumin Human 25% (12.5 gm/50 ml) IV SCH ×2 (10:09→16:44)
--- NOTE | 2018-10-09 10:10 | CP.PCM.PN ---
Subjective - Date & Time of Evaluation Date of Evaluation: 10/09/18 Time of Evaluation: 10:06 - Subjective Subjective: Patient feeling better. pain controlled with SENIOR CARE SPECIALIST. Patient had no Bowel movement, no flatus Objective - Vital Signs/Intake and Output Vital Signs (last 24 hours): Temp Pulse Resp BP Pulse Ox 101 F H 109 H 21 141/49 L 97 10/09/18 06:37 10/09/18 06:45 10/09/18 06:45 10/09/18 07:03 10/09/18 06:45 Intake and Output: 10/09/18 10/09/18 06:59 18:59 Intake Total 1550 125 Output Total 340 30 Balance 1210 95 - Medications Medications: Current Medications Acetaminophen (Tylenol 325mg Tab) 650 mg PO Q6 PRN PRN Reason: Fever >100.4 F Last Admin: 10/09/18 06:37 Dose: 650 mg Albumin Human (Albumin Human 25% (12.5 Gm/50 Ml)) 25 gm IV Q8H [facility] Stop: 10/10/18 00:16 Bisoprolol Fumarate (Zebeta) 5 mg PO DAILY [facility] Last Admin: 10/08/18 09:49 Dose: Not Given Dextrose (Dextrose 50% Inj) 0 ml IV STAT PRN; Protocol PRN Reason: Hypoglycemia Protocol Dextrose (Glutose 15) 0 gm PO ONCE PRN; Protocol PRN Reason: Hypoglycemia Protocol Enoxaparin Sodium (Lovenox) 60 mg SC Q12 [facility] Glucagon (Glucagen Diagnostic Kit) 0 mg IM STAT PRN; Protocol PRN Reason: Hypoglycemia Protocol Hydromorphone HCl (Dilaudid) 0.5 mg IVP Q4H PRN PRN Reason: Pain, moderate (4-7) Last Admin: 10/09/18 02:24 Dose: 0.5 mg Hydromorphone/Sodium Chloride (Dilaudid [employer] Pocket Machine Operator) 6 mg IV Q4H PRN; Protocol PRN Reason: Pain, severe (8-10) Dextrose (Dextrose 5% In Water 1000 Ml) 1,000 mls @ 0 mls/hr IV .Q0M PRN; Protocol PRN Reason: Hypoglycemia Protocol Ciprofloxacin (Cipro 400mg/200ml Dsw) 400 mg in 200 mls @ 133 mls/hr IVPB Q12H [facility]; Protocol Last Admin: 12/07/18 21:54 Dose: 133 mls/hr Metronidazole (Flagyl) 500 mg in 100 mls @ 100 mls/hr IVPB Q8H [facility]; Protocol Last Admin: 10/09/18 00:06 Dose: 100 mls/hr Sodium Chloride (Sodium Chloride 0.9%) 1,000 mls @ 125 mls/hr IV .Q8H [facility] Insulin Aspart (Novolog) 0 unit SC Q6H [facility]; Protocol Last Admin: 10/09/18 07:00 Dose: Not Given Ondansetron HCl (Zofran Inj) 4 mg IVP Q4H PRN PRN Reason: Nausea/Vomiting Pantoprazole Sodium (Protonix Inj) 40 mg IVP Q12H [facility] Last Admin: 10/08/18 21:43 Dose: 40 mg Vitamin A (Vitamin A & D Oint Ud Foilpak) 1 ea TOP Q6 PRN PRN Reason: for dry lips Last Admin: 10/08/18 21:43 Dose: 1 ea - Labs Labs: 10/09/18 06:17 10/09/18 06:17 PT 12.0 SECONDS (9.7-12.2) 10/07/18 16:00 INR 1.1 10/07/18 16:00 APTT 28 SECONDS (21-34) 10/07/18 16:00 Assessment and Plan - Assessment and Plan (Free Text) Assessment: -POD #1: no flatus,continue to monitor -continue IVF -monitor urine output -abx empirically -fever overnight: brooks culture with fevers -serial lactic -NSTEMI: continue lovenox, not a candidate for oral antiplatelets, possible rectal aspirin -contine dvt ppx levenox -pud ppx pepcid -restart home medications once enteral feeding started by surgery team -continue to monitor
--- NOTE | 2018-10-09 10:33 | CP.PCM.PN ---
<Vera Be - Last Filed: 10/09/18 10:30> Subjective - Date & Time of Evaluation Date of Evaluation: 10/09/18 Time of Evaluation: 09:00 - Subjective Subjective: GI Fellow PGY5 Progress Note Pt seen and evaluated at bedside, doing okay with no significant abdominal pain. She is POD#1 from appendectomy. Pt with fever this am. Surgery following. No BM reported. Per nursing no reported rectal bleeding. ROS: A 12pt ROS was negative except as above. Objective - Vital Signs/Intake and Output Vital Signs (last 24 hours): Temp Pulse Resp BP Pulse Ox 99.3 F 109 H 21 141/49 L 97 10/09/18 07:37 10/09/18 06:45 10/09/18 06:45 10/09/18 07:03 10/09/18 06:45 Intake and Output: 10/09/18 10/09/18 06:59 18:59 Intake Total 1550 125 Output Total 340 30 Balance 1210 95 - Medications Medications: Current Medications Acetaminophen (Tylenol 325mg Tab) 650 mg PO Q6 PRN PRN Reason: Fever >100.4 F Last Admin: 10/09/18 06:37 Dose: 650 mg Albumin Human (Albumin Human 25% (12.5 Gm/50 Ml)) 25 gm IV Q8H [facility] Stop: 10/10/18 00:16 Last Admin: 10/09/18 10:09 Dose: 25 gm Bisoprolol Fumarate (Zebeta) 5 mg PO DAILY [facility] Last Admin: 10/09/18 10:12 Dose: 5 mg Dextrose (Dextrose 50% Inj) 0 ml IV STAT PRN; Protocol PRN Reason: Hypoglycemia Protocol Dextrose (Glutose 15) 0 gm PO ONCE PRN; Protocol PRN Reason: Hypoglycemia Protocol Enoxaparin Sodium (Lovenox) 60 mg SC Q12 [facility] Last Admin: 10/09/18 10:10 Dose: 60 mg Glucagon (Glucagen Diagnostic Kit) 0 mg IM STAT PRN; Protocol PRN Reason: Hypoglycemia Protocol Hydromorphone HCl (Dilaudid) 0.5 mg IVP Q4H PRN PRN Reason: Pain, moderate (4-7) Last Admin: 10/09/18 02:24 Dose: 0.5 mg Hydromorphone/Sodium Chloride (Dilaudid Shanker Out) 6 mg IV Q4H PRN; Protocol PRN Reason: Pain, severe (8-10) Dextrose (Dextrose 5% In Water 1000 Ml) 1,000 mls @ 0 mls/hr IV .Q0M PRN; Protocol PRN Reason: Hypoglycemia Protocol Ciprofloxacin (Cipro 400mg/200ml Dsw) 400 mg in 200 mls @ 133 mls/hr IVPB Q12H [facility]; Protocol Last Admin: 10/08/18 21:54 Dose: 133 mls/hr Metronidazole (Flagyl) 500 mg in 100 mls @ 100 mls/hr IVPB Q8H [facility]; Protocol Last Admin: 10/09/18 09:00 Dose: 100 mls/hr Sodium Chloride (Sodium Chloride 0.9%) 1,000 mls @ 125 mls/hr IV .Q8H [facility] Last Admin: 10/09/18 09:15 Dose: 125 mls/hr Insulin Aspart (Novolog) 0 unit SC Q6H [facility]; Protocol Last Admin: 10/09/18 07:00 Dose: Not Given Ondansetron HCl (Zofran Inj) 4 mg IVP Q4H PRN PRN Reason: Nausea/Vomiting Pantoprazole Sodium (Protonix Inj) 40 mg IVP Q12H [facility] Last Admin: 10/09/18 10:11 Dose: 40 mg Vitamin A (Vitamin A & D Oint Ud Foilpak) 1 ea TOP Q6 PRN PRN Reason: for dry lips Last Admin: 10/08/18 21:43 Dose: 1 ea - Labs Labs: 10/09/18 06:17 10/09/18 06:17 PT 12.0 SECONDS (9.7-12.2) 10/07/18 16:00 INR 1.1 10/07/18 16:00 APTT 28 SECONDS (21-34) 10/07/18 16:00 - Constitutional Appears: Non-toxic, No Acute Distress, Chronically Ill - Head Exam Head Exam: ATRAUMATIC, NORMAL INSPECTION, NORMOCEPHALIC - Eye Exam Eye Exam: EOMI, Normal appearance, PERRL - ENT Exam ENT Exam: Mucous Membranes Dry - Respiratory Exam Respiratory Exam: Decreased Breath Sounds - Cardiovascular Exam Cardiovascular Exam: Tachycardia, +S1, +S2 - GI/Abdominal Exam GI & Abdominal Exam: Soft, Tenderness, Normal Bowel Sounds. absent: Distended, Organomegaly Additional comments: surgical scars s/p appendectomy - Extremities Exam Extremities Exam: Full ROM, Normal Inspection - Neurological Exam Neurological Exam: Alert, Awake, Oriented x3 - Psychiatric Exam Psychiatric exam: Normal Affect, Normal Mood - Skin Skin Exam: Dry, Intact, Normal Color, Warm Assessment and Plan - Assessment and Plan (Free Text) Assessment: This is a 73 year old female with history of PVD on plavix, HTN, DM, COPD, partial colon resection secondary to diverticulitis who presents to hospital with complaint of abdominal pain and dark colored stool. She reported sharp RLQ abdominal pain for the past one week associated with dark black colored stool. She had an EGD/colonoscopy in 2014 and was supposed to have outpatient follow up but did not pursue. 1. Abdominal pain - acute appendicitis 2. Anemia 3. NSTEMI 4. History of partial colon resection 5. HTN / DM 6. PVD on plavix 7. COPD - Continue supportive care with pain control and antiemetics - Follow up surgical recommendations for diet s/p appendectomy - H/H stable, s/p PRBC transfusion, continue to monitor - Continue with PPI therapy - Cardiology started on lovenox, will need to monitor closely - Currently no active GI bleeding, may need EGD if GI bleeding starts -Will monitor closely <Cory Tracy - Last Filed: 10/09/18 11:33> Objective - Vital Signs/Intake and Output Vital Signs (last 24 hours): Temp Pulse Resp BP Pulse Ox 99.3 F 109 H 21 141/49 L 97 10/09/18 07:37 10/09/18 06:45 10/09/18 06:45 10/09/18 07:03 10/09/18 06:45 Intake and Output: 10/09/18 10/09/18 06:59 18:59 Intake Total 1550 125 Output Total 340 30 Balance 1210 95 - Medications Medications: Current Medications Acetaminophen (Tylenol 325mg Tab) 650 mg PO Q6 PRN PRN Reason: Fever >100.4 F Last Admin: 10/09/18 06:37 Dose: 650 mg Albumin Human (Albumin Human 25% (12.5 Gm/50 Ml)) 25 gm IV Q8H [facility] Stop: 10/10/18 00:16 Last Admin: 10/09/18 10:09 Dose: 25 gm Dextrose (Dextrose 50% Inj) 0 ml IV STAT PRN; Protocol PRN Reason: Hypoglycemia Protocol Dextrose (Glutose 15) 0 gm PO ONCE PRN; Protocol PRN Reason: Hypoglycemia Protocol Enoxaparin Sodium (Lovenox) 60 mg SC Q12 [facility] Last Admin: 10/09/18 10:10 Dose: 60 mg Glucagon (Glucagen Diagnostic Kit) 0 mg IM STAT PRN; Protocol PRN Reason: Hypoglycemia Protocol Hydromorphone HCl (Dilaudid) 0.5 mg IVP Q4H PRN PRN Reason: Pain, moderate (4-7) Last Admin: 10/09/18 02:24 Dose: 0.5 mg Hydromorphone/Sodium Chloride (Dilaudid Shanker Out) 6 mg IV Q4H PRN; Protocol PRN Reason: Pain, severe (8-10) Dextrose (Dextrose 5% In Water 1000 Ml) 1,000 mls @ 0 mls/hr IV .Q0M PRN; Protocol PRN Reason: Hypoglycemia Protocol Ciprofloxacin (Cipro 400mg/200ml Dsw) 400 mg in 200 mls @ 133 mls/hr IVPB Q12H [facility]; Protocol Last Admin: 10/08/18 21:54 Dose: 133 mls/hr Metronidazole (Flagyl) 500 mg in 100 mls @ 100 mls/hr IVPB Q8H [facility]; Protocol Last Admin: 10/09/18 09:00 Dose: 100 mls/hr Sodium Chloride (Sodium Chloride 0.9%) 1,000 mls @ 125 mls/hr IV .Q8H [facility] Last Admin: 10/09/18 09:15 Dose: 125 mls/hr Insulin Aspart (Novolog) 0 unit SC Q6H [facility]; Protocol Last Admin: 10/09/18 07:00 Dose: Not Given Metoprolol Tartrate (Lopressor) 2.5 mg IVP Q6H [facility] Ondansetron HCl (Zofran Inj) 4 mg IVP Q4H PRN PRN Reason: Nausea/Vomiting Pantoprazole Sodium (Protonix Inj) 40 mg IVP Q12H [facility] Last Admin: 10/09/18 10:11 Dose: 40 mg Vitamin A (Vitamin A & D Oint Ud Foilpak) 1 ea TOP Q6 PRN PRN Reason: for dry lips Last Admin: 10/08/18 21:43 Dose: 1 ea - Labs Labs: 10/09/18 06:17 10/09/18 06:17 PT 12.0 SECONDS (9.7-12.2) 10/07/18 16:00 INR 1.1 10/07/18 16:00 APTT 28 SECONDS (21-34) 10/07/18 16:00 Attending/Attestation - Attestation I have personally seen and examined this patient.: Yes I have fully participated in the care of the patient.: Yes I have reviewed all pertinent clinical information, including history, physical exam and plan: Yes Notes (Text): 10/09/18 11:32 Chart reviewed. The pt was seen, examined and discussed with Dr. Mcmillan. Agree with findings and assessment as documented above. GI work up of anemia. 10/09/18 11:33
[2018-10-09] MEDS: Ciprofloxacin 400mg/200ml D5W 400 MG/200 ML BAG IVPB SCH ×2 (11:30→21:37)
[2018-10-09] MEDS: Metoprolol 1 mg/ml Inj IVP SCH ×3 (12:21→21:46)
[2018-10-09 16:41] LABS: BASO % 0.1 % (0.0-2.0); EOS # 0.1 K/uL (0.0-0.7); EOS % 0.4 % (0.0-4.0); HEMOGLOBIN 8.2 g/dL (11.0-16.0); LYMPH # 0.6 K/uL (1.0-4.3); LYMPH % 4.3 % (20.0-40.0); MEAN CELL VOLUME 88.9 fL (81.0-99.0); MEAN CORPUSCULAR HEMOGLOBIN 29.4 pg (27.0-31.0); MEAN CORPUSCULAR HGB CONC 33.1 g/dL (33.0-37.0); MEAN PLATELET VOLUME 7.2 fL (7.2-11.7); MONO # 0.9 K/uL (0.0-0.8); MONO % 7.2 % (0.0-10.0); NEUT # 11.3 K/uL (1.8-7.0); PLATELET COUNT 179 K/uL (130-400); RBC 2.78 Mil/uL (3.80-5.20); RED CELL DISTRIBUTION WIDTH 17.5 % (11.5-14.5); WHITE BLOOD COUNT 12.8 K/uL (4.8-10.8)
[2018-10-09 17:35] LABS: ANISOCYTOSIS SLIGHT; EOSINOPHIL 2 % (0-4); LYMPHOCYTE 6 % (20-40); MONOCYTE 7 % (0-10); NEUTROPHIL 85 % (50-75); PLATELET ESTIMATE NORMAL (NORMAL); POIKILOCYTOSIS SLIGHT; TOTAL CELLS COUNTED 100
[2018-10-09 17:37] LABS: HYPOCHROMIC SLIGHT; MICROCYTOSIS SLIGHT
[2018-10-10] MEDS: Metoprolol 1 mg/ml Inj IVP SCH ×4 (04:04→23:31)
--- NOTE | 2018-10-10 04:27 | PN ---
DATE: 10/09/2018 SUBJECTIVE: The patient is seen today, 10/09/2018. She is not in any cardiopulmonary distress, postoperative day #1. PHYSICAL EXAMINATION: VITAL SIGNS: Blood pressure 118/46, temperature 98.2, respiratory rate 20, and pulse 90. HEENT: Pupils equal, and reactive to light. Normal-appearing mucosa of the conjunctivae, oropharynx, and nasal membrane mucosa. NECK: Supple. No JVD. No carotid bruit. No lymph node. No thyromegaly. CHEST AND LUNGS: Bilateral symmetrical expansion. Good air exchange. No rales, no rhonchi. CARDIOVASCULAR SYSTEM: PMI not localized. S1, S2. No additional sounds. ABDOMEN: Normoactive bowel sounds. No tenderness. No organomegaly. No masses. EXTREMITIES: No cyanosis, no clubbing, no edema. OUTREACH CLINICIAN: Alert, awake, and oriented x2. No neurological deficit could be appreciated. ASSESSMENT: 1. Postoperative day #1, status post appendectomy and lysis adhesions. 2. Upper gastrointestinal bleeding. 3. Hypertension. 4. Osteoarthritis. 5. Peripheral vascular disease. 6. Type 2 diabetes mellitus. PLAN: Continue current medications and DVT prophylaxis and antibiotics and follow recommendations of Surgery. Kd Ledesma MD
[2018-10-10 06:09] LABS: BASO % 0.3 % (0.0-2.0); EOS % 0.3 % (0.0-4.0); HEMOGLOBIN 8.1 g/dL (11.0-16.0); LYMPH # 0.7 K/uL (1.0-4.3); LYMPH % 4.7 % (20.0-40.0); MEAN CORPUSCULAR HEMOGLOBIN 30.2 pg (27.0-31.0); MEAN CORPUSCULAR HGB CONC 33.6 g/dL (33.0-37.0); MEAN PLATELET VOLUME 8.1 fL (7.2-11.7); MONO # 1.2 K/uL (0.0-0.8); MONO % 8.3 % (0.0-10.0); NEUT # 12.4 K/uL (1.8-7.0); NEUT % 86.4 % (50.0-75.0); PLATELET COUNT 184 K/uL (130-400); RBC 2.67 Mil/uL (3.80-5.20); RED CELL DISTRIBUTION WIDTH 16.9 % (11.5-14.5); WHITE BLOOD COUNT 14.4 K/uL (4.8-10.8)
[2018-10-10] MEDS: (Novolog) Insulin Aspart, Recombinant 100 u/ml 10 ml vial SC SCH ×4 (06:09→18:15)
[2018-10-10 06:26] LABS: ALB/GLOB RATIO 1.4 (1.0-2.1); ALBUMIN 3.5 g/dL (3.5-5.0); ALT/SGPT 26 U/L (9-52); AST/SGOT 53 U/L (14-36); BLOOD UREA NITROGEN 13 mg/dL (7-17); CALCIUM 8.4 mg/dl (8.6-10.4); GFR NON-AFRICAN AMERICAN > 60
[2018-10-10] MEDS: metroNIDAZOLE IV 500 mg/100 ml 500 MG/100 ML BAG IVPB SCH ×2 (08:00→15:00)
--- NOTE | 2018-10-10 08:10 | CP.PCM.PN ---
Subjective - Date & Time of Evaluation Date of Evaluation: 10/10/18 Time of Evaluation: 08:09 - Subjective Subjective: General Surgery Consult Note for Dr. Rankin This 73F was seen and examined this AM at bedside. No acute events reported overnight. She got out of bed to chair yesterday. She is still not passing gas or moving her bowels. She denies any nausea or vomiting. She denies chest pain or SOB. Objective - Vital Signs/Intake and Output Vital Signs (last 24 hours): Temp Pulse Resp BP Pulse Ox 98.6 F 100 H 24 141/52 L 100 10/10/18 04:00 10/10/18 06:03 10/10/18 06:03 10/10/18 06:03 10/10/18 06:03 Intake and Output: 10/10/18 10/10/18 06:59 18:59 Intake Total 300 0 Output Total 650 100 Balance -350 -100 - Medications Medications: Current Medications Acetaminophen (Tylenol 325mg Tab) 650 mg PO Q6 PRN PRN Reason: Fever >100.4 F Last Admin: 10/09/18 06:37 Dose: 650 mg Dextrose (Dextrose 50% Inj) 0 ml IV STAT PRN; Protocol PRN Reason: Hypoglycemia Protocol Dextrose (Glutose 15) 0 gm PO ONCE PRN; Protocol PRN Reason: Hypoglycemia Protocol Enoxaparin Sodium (Lovenox) 40 mg SC DAILY [facility] Glucagon (Glucagen Diagnostic Kit) 0 mg IM STAT PRN; Protocol PRN Reason: Hypoglycemia Protocol Hydromorphone HCl (Dilaudid) 0.5 mg IVP Q4H PRN PRN Reason: Pain, moderate (4-7) Last Admin: 10/09/18 02:24 Dose: 0.5 mg Hydromorphone/Sodium Chloride (Dilaudid Telephone Services Sales Representative) 6 mg IV Q4H PRN; Protocol PRN Reason: Pain, severe (8-10) Last Admin: 10/09/18 12:10 Dose: 6 mg Dextrose (Dextrose 5% In Water 1000 Ml) 1,000 mls @ 0 mls/hr IV .Q0M PRN; Protocol PRN Reason: Hypoglycemia Protocol Ciprofloxacin (Cipro 400mg/200ml Dsw) 400 mg in 200 mls @ 133 mls/hr IVPB Q12H [facility]; Protocol Last Admin: 10/09/18 21:37 Dose: 133 mls/hr Metronidazole (Flagyl) 500 mg in 100 mls @ 100 mls/hr IVPB Q8H [facility]; Protocol Last Admin: 10/09/18 23:32 Dose: 100 mls/hr Insulin Aspart (Novolog) 0 unit SC Q6H [facility]; Protocol Last Admin: 10/10/18 06:09 Dose: Not Given Metoprolol Tartrate (Lopressor) 2.5 mg IVP Q6H [facility] Last Admin: 10/10/18 04:04 Dose: 2.5 mg Ondansetron HCl (Zofran Inj) 4 mg IVP Q4H PRN PRN Reason: Nausea/Vomiting Pantoprazole Sodium (Protonix Inj) 40 mg IVP Q12H [facility] Last Admin: 10/09/18 21:37 Dose: 40 mg Vitamin A (Vitamin A & D Oint Ud Foilpak) 1 ea TOP Q6 PRN PRN Reason: for dry lips Last Admin: 10/08/18 21:43 Dose: 1 ea - Labs Labs: 10/10/18 06:04 10/10/18 06:04 PT 12.0 SECONDS (9.7-12.2) 10/07/18 16:00 INR 1.1 10/07/18 16:00 APTT 28 SECONDS (21-34) 10/07/18 16:00 - Constitutional Appears: Non-toxic, No Acute Distress - Head Exam Head Exam: ATRAUMATIC, NORMOCEPHALIC - Eye Exam Eye Exam: EOMI - ENT Exam ENT Exam: Mucous Membranes Moist - Respiratory Exam Respiratory Exam: NORMAL BREATHING PATTERN - Cardiovascular Exam Cardiovascular Exam: +S1, +S2 - GI/Abdominal Exam GI & Abdominal Exam: Soft, Tenderness. absent: Distended, Firm, Guarding, Rigid Additional comments: Dressing clean dry and intact abdomen appropriately tender. - Extremities Exam Extremities Exam: Normal Inspection - Neurological Exam Neurological Exam: Alert, Awake - Psychiatric Exam Psychiatric exam: Normal Affect, Normal Mood - Skin Skin Exam: Dry, Intact Assessment and Plan - Assessment and Plan (Free Text) Assessment: 73F POD#2 s/p open appendectomy with extensive adhesiolysis NPO IVF Pain medication out of bed futher recs per Dr. Chucho Ayers PGY3
[2018-10-10 08:23] LABS: LYMPHOCYTE 5 % (20-40); MONOCYTE 7 % (0-10); NEUTROPHIL 88 % (50-75); PLATELET ESTIMATE NORMAL (NORMAL); TOTAL CELLS COUNTED 100
[2018-10-10 08:24] LABS: ANISOCYTOSIS SLIGHT; HYPOCHROMIC SLIGHT; POLYCHROMIC SLIGHT
[2018-10-10 08:25] LABS: LARGE PLATELETS PRESENT; TOXIC GRANULATION PRESENT
[2018-10-10] MEDS: Ciprofloxacin 400mg/200ml D5W 400 MG/200 ML BAG IVPB SCH ×2 (09:00→21:29)
--- NOTE | 2018-10-10 09:36 | HP ---
HISTORY OF PRESENT ILLNESS: This is a 73-year-old female with history of multiple medical problems, presented to emergency room with symptoms of black stool and abdominal pain. The patient had a CT scan of the abdomen and pelvis done that showed appendicitis. The patient was started on IV antibiotic, and she underwent appendectomy with lysis of abdomen and adhesions. The patient did well and admitted to Intensive Care Unit afterward. The patient denied to have any previous similar symptoms of black stool. The patient denied to have any history of vomiting blood. Other review of system is positive for generalized weakness and easy fatigability and exertional shortness of breath. PAST MEDICAL HISTORY: Hypertension, peripheral vascular disease, type 2 diabetes mellitus, and osteoarthritis. SOCIAL HISTORY: Smoker. No EtOH or substance abuse. FAMILY HISTORY: Not contributory. PHYSICAL EXAMINATION: GENERAL: The patient is in bed, not in any cardiopulmonary distress. VITAL SIGNS: Blood pressure was 119/61, temperature 98.2, respiratory rate 18, and pulse 90. HEENT: Pupils equal, reactive to light. Normal-appearing mucosa of the conjunctivae. NECK: Supple. No JVD. No carotid bruit. No lymph node. No thyromegaly. CHEST AND LUNGS: Bilateral symmetrical expansion. Good air exchange. No rales. No rhonchi. CARDIOVASCULAR SYSTEM: PMI not localized. S1, S2. No additional sounds. ABDOMEN: Normoactive bowel sounds. No tenderness. No organomegaly. No masses. EXTREMITIES: No cyanosis, no clubbing, no edema. CENTRAL NERVOUS SYSTEM: Alert, awake, oriented x2. No neurological deficit could be appreciated. ASSESSMENT: Upper gastrointestinal bleeding, appendicitis, hypertension, osteoarthritis, peripheral vascular disease. PLAN: Continue current antibiotics and follow surgical recommendations, and we will start DVT prophylaxis once cleared by Surgery. Kd Ledesma MD
[2018-10-10] MEDS: Magnesium Sulfate 1 gm in D5W 1 GM/100 ML BAG IVPB SCH ×3 (09:40→12:00)
[2018-10-10] MEDS: Enoxaparin 40 mg Syringe SC SCH (09:48)
--- NOTE | 2018-10-10 11:13 | RAD ---
Date of service: 10/09/2018 HISTORY: dyspnea COMPARISON: 10/08/2018 FINDINGS: LUNGS: The lungs are well inflated. There is worsening moderate pulmonary venous congestion. PLEURA: Small effusions. No pneumothorax. CARDIOVASCULAR: Persistent cardiomegaly and prominent central vasculature. Atherosclerotic aortic arch calcifications are present. OSSEOUS STRUCTURES: Within normal limits for the patient's age. VISUALIZED UPPER ABDOMEN: Normal. OTHER FINDINGS: None. IMPRESSION: Worsening congestive heart failure.
--- NOTE | 2018-10-10 11:19 | CP.PCM.PN ---
Subjective - Date & Time of Evaluation Date of Evaluation: 10/10/18 Time of Evaluation: 11:11 - Subjective Subjective: SOB last night, CXR shows CHF picture, improved with lasix and bipap, gradual drop in hemoglobin also partly related with hemodilution, no active blood loss noticed, vital sighs remained stable. Continued to have abd tenderness, bs abse nt. Denies chest pain. Objective - Vital Signs/Intake and Output Vital Signs (last 24 hours): Temp Pulse Resp BP Pulse Ox 99.0 F 97 H 25 H 124/66 98 10/10/18 08:00 10/10/18 10:45 10/10/18 10:45 10/10/18 09:50 10/10/18 10:45 Intake and Output: 10/10/18 10/10/18 06:59 18:59 Intake Total 300 0 Output Total 650 100 Balance -350 -100 - Medications Medications: Current Medications Acetaminophen (Tylenol 325mg Tab) 650 mg PO Q6 PRN PRN Reason: Fever >100.4 F Last Admin: 10/09/18 06:37 Dose: 650 mg Dextrose (Dextrose 50% Inj) 0 ml IV STAT PRN; Protocol PRN Reason: Hypoglycemia Protocol Dextrose (Glutose 15) 0 gm PO ONCE PRN; Protocol PRN Reason: Hypoglycemia Protocol Enoxaparin Sodium (Lovenox) 40 mg SC DAILY [facility] Last Admin: 10/10/18 09:48 Dose: 40 mg Glucagon (Glucagen Diagnostic Kit) 0 mg IM STAT PRN; Protocol PRN Reason: Hypoglycemia Protocol Hydromorphone HCl (Dilaudid) 0.5 mg IVP Q4H PRN PRN Reason: Pain, moderate (4-7) Last Admin: 10/09/18 02:24 Dose: 0.5 mg Hydromorphone/Sodium Chloride (Dilaudid Broaching Machine Repairer) 6 mg IV Q4H PRN; Protocol PRN Reason: Pain, severe (8-10) Last Admin: 10/09/18 12:10 Dose: 6 mg Dextrose (Dextrose 5% In Water 1000 Ml) 1,000 mls @ 0 mls/hr IV .Q0M PRN; Protocol PRN Reason: Hypoglycemia Protocol Ciprofloxacin (Cipro 400mg/200ml Dsw) 400 mg in 200 mls @ 133 mls/hr IVPB Q12H [facility]; Protocol Last Admin: 10/10/18 09:00 Dose: 133 mls/hr Metronidazole (Flagyl) 500 mg in 100 mls @ 100 mls/hr IVPB Q8H [facility]; Protocol Last Admin: 10/10/18 08:00 Dose: 100 mls/hr Magnesium Sulfate/Dextrose (Magnesium Sulfate 1 Gm/100 Ml D5w) 1 gm in 100 mls @ 300 mls/hr IVPB Q30M [facility] Stop: 10/10/18 11:49 Insulin Aspart (Novolog) 0 unit SC Q6H [facility]; Protocol Last Admin: 10/10/18 06:09 Dose: Not Given Metoprolol Tartrate (Lopressor) 2.5 mg IVP Q6H [facility] Last Admin: 10/10/18 09:50 Dose: 2.5 mg Ondansetron HCl (Zofran Inj) 4 mg IVP Q4H PRN PRN Reason: Nausea/Vomiting Pantoprazole Sodium (Protonix Inj) 40 mg IVP Q12H [facility] Last Admin: 10/10/18 09:48 Dose: 40 mg Vitamin A (Vitamin A & D Oint Ud Foilpak) 1 ea TOP Q6 PRN PRN Reason: for dry lips Last Admin: 10/08/18 21:43 Dose: 1 ea - Labs Labs: 10/10/18 06:04 10/10/18 06:04 PT 12.0 SECONDS (9.7-12.2) 10/07/18 16:00 INR 1.1 10/07/18 16:00 APTT 28 SECONDS (21-34) 10/07/18 16:00 - Additional Findings Additional findings: * HEENT SILVIO * Neck supple * Chest no wheezing or rales * CVS regular, no gallop or rub * PA abd binder on, tenderness at the incision site and around * Ext no edema * RIBBON TIER awake oriented x2 no fnd * Skin normal turgor. Assessment and Plan - Assessment and Plan (Free Text) Assessment: * Appendicectomy open pod#2, with adhesion lysis * CHF/pulm edema last night * Chronic anemia * CAD, pvd, s/p fem-fem bypass, stent obstruction * CAD with high grade LAD and RCA lesions, poor candidate for cath due to chronic resp distess, pvd * H/o colonic resection * NSTEMI with demand ischemia, chf Plan: * diuresis with prbc, transfusion * NPO * IO monitoring due to recent chf * Continue abx * GI, DVT prophylaxis * See orders for detal.
--- NOTE | 2018-10-10 11:24 | CP.PCM.PN ---
<Vera Be - Last Filed: 10/10/18 11:24> Subjective - Date & Time of Evaluation Date of Evaluation: 10/10/18 Time of Evaluation: 09:00 - Subjective Subjective: GI Fellow PGY5 Progress Note Pt seen and evaluated at bedside, doing okay with no significant abdominal pain. She is POD#2 from appendectomy. Pt is SOB with increased work of breathing, on and off BIPAP. No BM reported. Per nursing no reported rectal bleeding. ROS: A 12pt ROS was negative except as above. Objective - Vital Signs/Intake and Output Vital Signs (last 24 hours): Temp Pulse Resp BP Pulse Ox 99.0 F 97 H 25 H 124/66 98 10/10/18 08:00 10/10/18 10:45 10/10/18 10:45 10/10/18 09:50 10/10/18 10:45 Intake and Output: 10/10/18 10/10/18 06:59 18:59 Intake Total 300 0 Output Total 650 100 Balance -350 -100 - Medications Medications: Current Medications Acetaminophen (Tylenol 325mg Tab) 650 mg PO Q6 PRN PRN Reason: Fever >100.4 F Last Admin: 10/09/18 06:37 Dose: 650 mg Dextrose (Dextrose 50% Inj) 0 ml IV STAT PRN; Protocol PRN Reason: Hypoglycemia Protocol Dextrose (Glutose 15) 0 gm PO ONCE PRN; Protocol PRN Reason: Hypoglycemia Protocol Enoxaparin Sodium (Lovenox) 40 mg SC DAILY [facility] Last Admin: 10/10/18 09:48 Dose: 40 mg Furosemide (Lasix) 20 mg IVP STAT STA Stop: 10/10/18 11:22 Glucagon (Glucagen Diagnostic Kit) 0 mg IM STAT PRN; Protocol PRN Reason: Hypoglycemia Protocol Hydromorphone HCl (Dilaudid) 0.5 mg IVP Q4H PRN PRN Reason: Pain, moderate (4-7) Last Admin: 10/09/18 02:24 Dose: 0.5 mg Hydromorphone/Sodium Chloride (Dilaudid Dietary Aide Teacher) 6 mg IV Q4H PRN; Protocol PRN Reason: Pain, severe (8-10) Last Admin: 10/09/18 12:10 Dose: 6 mg Dextrose (Dextrose 5% In Water 1000 Ml) 1,000 mls @ 0 mls/hr IV .Q0M PRN; Protocol PRN Reason: Hypoglycemia Protocol Ciprofloxacin (Cipro 400mg/200ml Dsw) 400 mg in 200 mls @ 133 mls/hr IVPB Q12H [facility]; Protocol Last Admin: 10/10/18 09:00 Dose: 133 mls/hr Metronidazole (Flagyl) 500 mg in 100 mls @ 100 mls/hr IVPB Q8H [facility]; Protocol Last Admin: 10/10/18 08:00 Dose: 100 mls/hr Magnesium Sulfate/Dextrose (Magnesium Sulfate 1 Gm/100 Ml D5w) 1 gm in 100 mls @ 300 mls/hr IVPB Q30M [facility] Stop: 10/10/18 11:49 Insulin Aspart (Novolog) 0 unit SC Q6H [facility]; Protocol Last Admin: 10/10/18 06:09 Dose: Not Given Metoprolol Tartrate (Lopressor) 2.5 mg IVP Q6H [facility] Last Admin: 10/10/18 09:50 Dose: 2.5 mg Ondansetron HCl (Zofran Inj) 4 mg IVP Q4H PRN PRN Reason: Nausea/Vomiting Pantoprazole Sodium (Protonix Inj) 40 mg IVP Q12H [facility] Last Admin: 10/10/18 09:48 Dose: 40 mg Vitamin A (Vitamin A & D Oint Ud Foilpak) 1 ea TOP Q6 PRN PRN Reason: for dry lips Last Admin: 10/08/18 21:43 Dose: 1 ea - Labs Labs: 10/10/18 06:04 10/10/18 06:04 PT 12.0 SECONDS (9.7-12.2) 10/07/18 16:00 INR 1.1 10/07/18 16:00 APTT 28 SECONDS (21-34) 10/07/18 16:00 - Constitutional Appears: Non-toxic, No Acute Distress - Head Exam Head Exam: ATRAUMATIC, NORMAL INSPECTION, NORMOCEPHALIC - Eye Exam Eye Exam: EOMI, PERRL - Respiratory Exam Respiratory Exam: Wheezes, Respiratory Distress - Cardiovascular Exam Cardiovascular Exam: Tachycardia, +S1, +S2 - GI/Abdominal Exam GI & Abdominal Exam: Soft, Tenderness, Normal Bowel Sounds - Extremities Exam Extremities Exam: Full ROM, Normal Inspection - Neurological Exam Neurological Exam: Alert, Awake, Oriented x3 - Psychiatric Exam Psychiatric exam: Anxious - Skin Skin Exam: Dry, Intact, Normal Color, Warm Assessment and Plan - Assessment and Plan (Free Text) Assessment: This is a 73 year old female with history of PVD on plavix, HTN, DM, COPD, partial colon resection secondary to diverticulitis who presents to hospital with complaint of abdominal pain and dark colored stool. She reported sharp RLQ abdominal pain for the past one week associated with dark black colored stool. She had an EGD/colonoscopy in 2014 and was supposed to have outpatient follow up but did not pursue. 1. Abdominal pain - acute appendicitis 2. Anemia 3. NSTEMI 4. History of partial colon resection 5. HTN / DM 6. PVD on plavix 7. COPD - Continue supportive care with pain control and antiemetics - Follow up surgical recommendations for diet s/p appendectomy, currently NPO - H/H stable, s/p PRBC transfusion, continue to monitor - Continue with PPI therapy - Cardiology started on lovenox, will need to monitor closely - Currently no active GI bleeding, may need EGD if GI bleeding starts -Will monitor closely <Cory Tracy - Last Filed: 10/10/18 17:44> Objective - Vital Signs/Intake and Output Vital Signs (last 24 hours): Temp Pulse Resp BP Pulse Ox 98.3 F 96 H 24 151/60 H 100 10/10/18 15:45 10/10/18 15:45 10/10/18 15:45 10/10/18 15:45 10/10/18 15:03 Intake and Output: 10/10/18 10/10/18 06:59 18:59 Intake Total 300 345 Output Total 650 100 Balance -350 245 - Medications Medications: Current Medications Acetaminophen (Tylenol 325mg Tab) 650 mg PO Q6 PRN PRN Reason: Fever >100.4 F Last Admin: 10/09/18 06:37 Dose: 650 mg Dextrose (Dextrose 50% Inj) 0 ml IV STAT PRN; Protocol PRN Reason: Hypoglycemia Protocol Dextrose (Glutose 15) 0 gm PO ONCE PRN; Protocol PRN Reason: Hypoglycemia Protocol Enoxaparin Sodium (Lovenox) 40 mg SC DAILY [facility] Last Admin: 10/10/18 09:48 Dose: 40 mg Glucagon (Glucagen Diagnostic Kit) 0 mg IM STAT PRN; Protocol PRN Reason: Hypoglycemia Protocol Hydromorphone HCl (Dilaudid) 0.5 mg IVP Q4H PRN PRN Reason: Pain, moderate (4-7) Last Admin: 10/09/18 02:24 Dose: 0.5 mg Hydromorphone/Sodium Chloride (Dilaudid Dietary Aide Teacher) 6 mg IV Q4H PRN; Protocol PRN Reason: Pain, severe (8-10) Last Admin: 10/09/18 12:10 Dose: 6 mg Dextrose (Dextrose 5% In Water 1000 Ml) 1,000 mls @ 0 mls/hr IV .Q0M PRN; Protocol PRN Reason: Hypoglycemia Protocol Ciprofloxacin (Cipro 400mg/200ml Dsw) 400 mg in 200 mls @ 133 mls/hr IVPB Q12H [facility]; Protocol Last Admin: 10/10/18 09:00 Dose: 133 mls/hr Metronidazole (Flagyl) 500 mg in 100 mls @ 100 mls/hr IVPB Q8H [facility]; Protocol Last Admin: 10/10/18 15:00 Dose: 100 mls/hr Insulin Aspart (Novolog) 0 unit SC Q6H [facility]; Protocol Last Admin: 10/10/18 12:49 Dose: Not Given Metoprolol Tartrate (Lopressor) 2.5 mg IVP Q6H [facility] Last Admin: 10/10/18 09:50 Dose: 2.5 mg Ondansetron HCl (Zofran Inj) 4 mg IVP Q4H PRN PRN Reason: Nausea/Vomiting Pantoprazole Sodium (Protonix Inj) 40 mg IVP Q12H [facility] Last Admin: 10/10/18 09:48 Dose: 40 mg Vitamin A (Vitamin A & D Oint Ud Foilpak) 1 ea TOP Q6 PRN PRN Reason: for dry lips Last Admin: 10/08/18 21:43 Dose: 1 ea - Labs Labs: 10/10/18 06:04 10/10/18 06:04 PT 12.0 SECONDS (9.7-12.2) 10/07/18 16:00 INR 1.1 10/07/18 16:00 APTT 28 SECONDS (21-34) 10/07/18 16:00 Attending/Attestation - Attestation I have personally seen and examined this patient.: Yes I have fully participated in the care of the patient.: Yes I have reviewed all pertinent clinical information, including history, physical exam and plan: Yes Notes (Text): 10/10/18 17:42 The pt was seen in am. Discussed with Dr. Brown. Agree with finding and assessment as documented above.
--- NOTE | 2018-10-10 17:35 | CP.PCM.PN ---
Subjective - Date & Time of Evaluation Date of Evaluation: 10/10/18 Time of Evaluation: 13:05 - Subjective Subjective: Patient seen and evaluated Denies chest pain and dyspnea Trops trending down Unable to tolerate full anticoagulation Conservative medical mgt for CAD now Objective - Vital Signs/Intake and Output Vital Signs (last 24 hours): Temp Pulse Resp BP Pulse Ox 98.3 F 96 H 24 151/60 H 100 10/10/18 15:45 10/10/18 15:45 10/10/18 15:45 10/10/18 15:45 10/10/18 15:03 Intake and Output: 10/10/18 10/10/18 06:59 18:59 Intake Total 300 345 Output Total 650 100 Balance -350 245 - Medications Medications: Current Medications Acetaminophen (Tylenol 325mg Tab) 650 mg PO Q6 PRN PRN Reason: Fever >100.4 F Last Admin: 10/09/18 06:37 Dose: 650 mg Dextrose (Dextrose 50% Inj) 0 ml IV STAT PRN; Protocol PRN Reason: Hypoglycemia Protocol Dextrose (Glutose 15) 0 gm PO ONCE PRN; Protocol PRN Reason: Hypoglycemia Protocol Enoxaparin Sodium (Lovenox) 40 mg SC DAILY [facility] Last Admin: 10/10/18 09:48 Dose: 40 mg Glucagon (Glucagen Diagnostic Kit) 0 mg IM STAT PRN; Protocol PRN Reason: Hypoglycemia Protocol Hydromorphone HCl (Dilaudid) 0.5 mg IVP Q4H PRN PRN Reason: Pain, moderate (4-7) Last Admin: 10/09/18 02:24 Dose: 0.5 mg Hydromorphone/Sodium Chloride (Dilaudid Brim Setter) 6 mg IV Q4H PRN; Protocol PRN Reason: Pain, severe (8-10) Last Admin: 10/09/18 12:10 Dose: 6 mg Dextrose (Dextrose 5% In Water 1000 Ml) 1,000 mls @ 0 mls/hr IV .Q0M PRN; Protocol PRN Reason: Hypoglycemia Protocol Ciprofloxacin (Cipro 400mg/200ml Dsw) 400 mg in 200 mls @ 133 mls/hr IVPB Q12H [facility]; Protocol Last Admin: 10/10/18 09:00 Dose: 133 mls/hr Metronidazole (Flagyl) 500 mg in 100 mls @ 100 mls/hr IVPB Q8H [facility]; Protocol Last Admin: 10/10/18 15:00 Dose: 100 mls/hr Insulin Aspart (Novolog) 0 unit SC Q6H [facility]; Protocol Last Admin: 10/10/18 12:49 Dose: Not Given Metoprolol Tartrate (Lopressor) 2.5 mg IVP Q6H [facility] Last Admin: 10/10/18 09:50 Dose: 2.5 mg Ondansetron HCl (Zofran Inj) 4 mg IVP Q4H PRN PRN Reason: Nausea/Vomiting Pantoprazole Sodium (Protonix Inj) 40 mg IVP Q12H [facility] Last Admin: 10/10/18 09:48 Dose: 40 mg Vitamin A (Vitamin A & D Oint Ud Foilpak) 1 ea TOP Q6 PRN PRN Reason: for dry lips Last Admin: 10/08/18 21:43 Dose: 1 ea - Labs Labs: 10/10/18 06:04 10/10/18 06:04 PT 12.0 SECONDS (9.7-12.2) 10/07/18 16:00 INR 1.1 10/07/18 16:00 APTT 28 SECONDS (21-34) 10/07/18 16:00
--- NOTE | 2018-10-10 20:55 | PN ---
DATE: 10/10/2018 SUBJECTIVE: The patient is seen today, 10/10/2018. She is not in any cardiopulmonary distress. The patient still did not pass gas and did not move bowel. Postoperative day #2. PHYSICAL EXAMINATION: VITAL SIGNS: Blood pressure 144/52, temperature 98.2, respiratory rate 24 and pulse 91. HEENT: Pupils equal, reactive to light. Normal appearing mucosa of the conjunctivae, oropharynx and nasal membrane mucosa. NECK: Supple. No JVD. No carotid bruit. No lymph node. No thyromegaly. CHEST AND LUNGS: Bilateral symmetrical expansion. Good air exchange. No rales, no rhonchi. CARDIOVASCULAR: PMI not localized. S1 and S2. No additional sounds. ABDOMEN: Normoactive bowel sounds. No tenderness. No organomegaly. No masses. EXTREMITIES: No cyanosis, no clubbing, no edema. CENTRAL NERVOUS SYSTEM: Alert, awake, oriented x2. No neurological deficit could be appreciated. ASSESSMENT: 1. Postoperative day #2, status post laparotomy for appendectomy and lysis of adhesions. 2. Symptoms of melena with possible upper gastrointestinal bleeding. 3. Anemia of acute blood loss. 4. Type 2 diabetes mellitus. 5. Hypertension. 6. Chronic obstructive pulmonary disease. PLAN: Continue current IV fluid. We will transfuse the patient a unit of packed RBCs as hemoglobin dropped to 8.1. Follow the surgical consult recommendations postoperatively. Kd Ledesma MD
[2018-10-11] MEDS: (Novolog) Insulin Aspart, Recombinant 100 u/ml 10 ml vial SC SCH ×4 (00:02→17:33)
[2018-10-11] MEDS: metroNIDAZOLE IV 500 mg/100 ml 500 MG/100 ML BAG IVPB SCH ×2 (00:08→22:29)
[2018-10-11] MEDS: Metoprolol 1 mg/ml Inj IVP SCH ×4 (03:55→22:31)
[2018-10-11 06:29] LABS: BASO # 0.1 K/uL (0.0-0.2); BASO % 0.4 % (0.0-2.0); EOS # 0.1 K/uL (0.0-0.7); EOS % 0.8 % (0.0-4.0); HEMOGLOBIN 9.7 g/dL (11.0-16.0); LYMPH # 0.6 K/uL (1.0-4.3); MEAN CELL VOLUME 88.7 fL (81.0-99.0); MEAN CORPUSCULAR HEMOGLOBIN 29.3 pg (27.0-31.0); MEAN PLATELET VOLUME 8.1 fL (7.2-11.7); MONO # 1.3 K/uL (0.0-0.8); MONO % 8.2 % (0.0-10.0); NEUT # 13.4 K/uL (1.8-7.0); NEUT % 86.6 % (50.0-75.0); PLATELET COUNT 203 K/uL (130-400); RBC 3.31 Mil/uL (3.80-5.20); WHITE BLOOD COUNT 15.5 K/uL (4.8-10.8)
[2018-10-11 06:49] LABS: ALB/GLOB RATIO 1.3 (1.0-2.1); ALBUMIN 3.3 g/dL (3.5-5.0); ALT/SGPT 26 U/L (9-52); AST/SGOT 44 U/L (14-36); BLOOD UREA NITROGEN 15 mg/dL (7-17); CALCIUM 8.7 mg/dl (8.6-10.4); GFR NON-AFRICAN AMERICAN > 60
--- NOTE | 2018-10-11 07:24 | CP.PCM.PN ---
<Primo Dsouza - Last Filed: 10/11/18 10:09> Subjective - Date & Time of Evaluation Date of Evaluation: 10/11/18 Time of Evaluation: 07:30 - Subjective Subjective: PGY-4 GI Fellow Prog Note Pt lying in bed, wearing BiPAP when seen this AM. Reports some abd pain, denied N/V. No BM nor flatus yet. 5 point ROS negative other than stated above Objective - Vital Signs/Intake and Output Vital Signs (last 24 hours): Temp Pulse Resp BP Pulse Ox 98.7 F 90 23 145/54 L 100 10/11/18 04:00 10/11/18 06:00 10/11/18 06:00 10/11/18 05:30 10/11/18 06:00 Intake and Output: 10/11/18 10/11/18 06:59 18:59 Intake Total 300 Output Total 600 Balance -300 - Medications Medications: Current Medications Acetaminophen (Tylenol 325mg Tab) 650 mg PO Q6 PRN PRN Reason: Fever >100.4 F Last Admin: 10/09/18 06:37 Dose: 650 mg Dextrose (Dextrose 50% Inj) 0 ml IV STAT PRN; Protocol PRN Reason: Hypoglycemia Protocol Dextrose (Glutose 15) 0 gm PO ONCE PRN; Protocol PRN Reason: Hypoglycemia Protocol Enoxaparin Sodium (Lovenox) 40 mg SC DAILY [facility] Last Admin: 10/10/18 09:48 Dose: 40 mg Glucagon (Glucagen Diagnostic Kit) 0 mg IM STAT PRN; Protocol PRN Reason: Hypoglycemia Protocol Hydromorphone HCl (Dilaudid) 0.5 mg IVP Q4H PRN PRN Reason: Pain, moderate (4-7) Last Admin: 10/09/18 02:24 Dose: 0.5 mg Hydromorphone/Sodium Chloride (Dilaudid Ems Educator) 6 mg IV Q4H PRN; Protocol PRN Reason: Pain, severe (8-10) Last Admin: 10/10/18 18:37 Dose: 6 mg Insulin Aspart (Novolog) 0 unit SC Q6H [facility]; Protocol Last Admin: 10/11/18 06:11 Dose: Not Given Metoprolol Tartrate (Lopressor) 2.5 mg IVP Q6H [facility] Last Admin: 10/11/18 03:55 Dose: 2.5 mg Ondansetron HCl (Zofran Inj) 4 mg IVP Q4H PRN PRN Reason: Nausea/Vomiting Pantoprazole Sodium (Protonix Inj) 40 mg IVP Q12H [facility] Last Admin: 10/10/18 21:28 Dose: 40 mg Vitamin A (Vitamin A & D Oint Ud Foilpak) 1 ea TOP Q6 PRN PRN Reason: for dry lips Last Admin: 10/08/18 21:43 Dose: 1 ea - Labs Labs: 10/11/18 06:24 10/11/18 06:24 PT 12.0 SECONDS (9.7-12.2) 10/07/18 16:00 INR 1.1 10/07/18 16:00 APTT 28 SECONDS (21-34) 10/07/18 16:00 - Constitutional Appears: Other (wearing BiPAP, in NAD) - Head Exam Head Exam: ATRAUMATIC, NORMAL INSPECTION - Eye Exam Eye Exam: EOMI. absent: Scleral icterus - GI/Abdominal Exam GI & Abdominal Exam: Distended, Guarding, Soft, Tenderness (diffusely ttp with vol guarding, midline surgical dressing in place), Hypoactive Bowel Sounds. absent: Bruit, Firm, Rigid, Organomegaly Assessment and Plan - Assessment and Plan (Free Text) Assessment: 73 yo BF with h/o Tob Abuse, diverticulitis s/p colon resection presenting with abd pain and black stools. # Abd pain: Suspect related to acute appendicitis seen on CT, POD# 3 from appendectomy and lysis of adhesions 10/08/18. # Melena: Unclear exact cause of melena but on DAPT placing at risk for PUD. Perhaps bleeding R sided colon lesion as had h/o R sided colitis earlier this year w/o f/u CSPY despite being recommended. Also at risk for anastamotic bleed given h/o colonic resection. Hgb stable after PRBC transfusions and no reports/signs of bleeding. # Acute on Chronic Anemia: Hgb 7.7 from about 9 baseline. Perhaps related melena and upper GI or slow right sided colon source. s/p 3 units PRBCs with good response after admission (2 units), then post op (1 unit) # Splenic lesion: Unclear etiology. Pt denied any weight loss or other red flag symptoms other than black stools prior to admission to suggest possible bleeding. Plan: - Diet, IVF, bowel regimen and Abx per surgery - Discuss with Cardiology and Gen Surg regarding possible EGD on 10/13 to evaluate reported melena and anemia --- Discussed briefly with Dr. Logan, pt is mod-high risk given CAD with sig stenosis - Cont PPI IV BID - Clopidogrel and ASA held since at least 10/08 - Will need to hold enoxaparin in PM of 10/12 if EGD - Monitor Hgb Thank you for the consult; will continue to follow. Pt seen and examined with Dr. Betancur; see attestation for further recs/changes. Primo Dsouza, PGY-4 <Titus Betancur - Last Filed: 10/11/18 13:20> Objective - Vital Signs/Intake and Output Vital Signs (last 24 hours): Temp Pulse Resp BP Pulse Ox 98.2 F 96 H 25 H 111/45 L 100 10/11/18 08:00 10/11/18 11:31 10/11/18 11:31 10/11/18 11:31 10/11/18 10:31 Intake and Output: 10/11/18 10/11/18 06:59 18:59 Intake Total 300 62 Output Total 600 Balance -300 62 - Medications Medications: Current Medications Acetaminophen (Tylenol 325mg Tab) 650 mg PO Q6 PRN PRN Reason: Fever >100.4 F Last Admin: 10/09/18 06:37 Dose: 650 mg Dextrose (Dextrose 50% Inj) 0 ml IV STAT PRN; Protocol PRN Reason: Hypoglycemia Protocol Dextrose (Glutose 15) 0 gm PO ONCE PRN; Protocol PRN Reason: Hypoglycemia Protocol Enoxaparin Sodium (Lovenox) 40 mg SC DAILY [facility] Last Admin: 10/11/18 10:12 Dose: 40 mg Furosemide (Lasix) 20 mg IVP DAILY [facility] Last Admin: 10/11/18 10:11 Dose: 20 mg Glucagon (Glucagen Diagnostic Kit) 0 mg IM STAT PRN; Protocol PRN Reason: Hypoglycemia Protocol Hydromorphone HCl (Dilaudid) 0.5 mg IVP Q4H PRN PRN Reason: Pain, moderate (4-7) Last Admin: 10/11/18 11:41 Dose: 0.5 mg Insulin Aspart (Novolog) 0 unit SC Q6H [facility] ANTONIO; Protocol Last Admin: 10/11/18 06:11 Dose: Not Given Metoprolol Tartrate (Lopressor) 2.5 mg IVP Q6H [facility] Last Admin: 10/11/18 10:12 Dose: 2.5 mg Ondansetron HCl (Zofran Inj) 4 mg IVP Q4H PRN PRN Reason: Nausea/Vomiting Pantoprazole Sodium (Protonix Inj) 40 mg IVP Q12H [facility] Last Admin: 10/11/18 10:12 Dose: 40 mg Vitamin A (Vitamin A & D Oint Ud Foilpak) 1 ea TOP Q6 PRN PRN Reason: for dry lips Last Admin: 10/08/18 21:43 Dose: 1 ea - Labs Labs: 10/11/18 06:24 10/11/18 06:24 PT 12.0 SECONDS (9.7-12.2) 10/07/18 16:00 INR 1.1 10/07/18 16:00 APTT 28 SECONDS (21-34) 10/07/18 16:00 Attending/Attestation - Attestation I have personally seen and examined this patient.: Yes I have fully participated in the care of the patient.: Yes I have reviewed all pertinent clinical information, including history, physical exam and plan: Yes Notes (Text): 10/11/18 13:17 I have seen and examined patient with GI fellow. No acute events overnight, she is seen resting in bed comfortably on BIPAP therapy. She reports abdominal pain at surgical site but otherwise denies nausea, vomiting, fever/chills. No bowel movements or flatus post operatively. History of diverticulitis s/p partial colon resection Abdominal pain, acute appendicitis s/p appendectomy Anemia CAD, NSTEMI - NPO - Continue with PPI therapy - Follow up surgical recommendations - H/H stable, s/p PRBC transfusion without presence of overt bleeding noted - Given future requirement for patient to be on dual antiplatelet therapy for known CAD, patient would benefit from EGD/colonoscopy prior to resuming medication but will need to coordinate with cardiology and surgical teams prior to proceeding. For time being, continue with conservative management and observation.
[2018-10-11] MEDS ORDERED: Potassium Phosphate 15 MMOLE in Sodium Chloride 0.9% 250 ML IV ONE (07:58)
[2018-10-11 09:12] LABS: EOSINOPHIL 1 % (0-4); LYMPHOCYTE 3 % (20-40); MONOCYTE 4 % (0-10); NEUTROPHIL 92 % (50-75); TOTAL CELLS COUNTED 100
[2018-10-11 09:13] LABS: PLATELET ESTIMATE NORMAL (NORMAL)
--- NOTE | 2018-10-11 09:29 | CP.PCM.PN ---
<Shavon Zurita - Last Filed: 10/11/18 14:29> Subjective - Date & Time of Evaluation Date of Evaluation: 10/11/18 Time of Evaluation: 09:29 - Subjective Subjective: Cardiology Follow Up Patient was seen and examined at bedside. Patient denied any chest pain, shortness of breath, or palpitations. Objective - Vital Signs/Intake and Output Vital Signs (last 24 hours): Temp Pulse Resp BP Pulse Ox 98.2 F 83 19 125/40 L 100 10/11/18 08:00 10/11/18 09:00 10/11/18 09:00 10/11/18 08:30 10/11/18 09:00 Intake and Output: 10/11/18 10/11/18 06:59 18:59 Intake Total 300 Output Total 600 Balance -300 - Medications Medications: Current Medications Acetaminophen (Tylenol 325mg Tab) 650 mg PO Q6 PRN PRN Reason: Fever >100.4 F Last Admin: 10/09/18 06:37 Dose: 650 mg Dextrose (Dextrose 50% Inj) 0 ml IV STAT PRN; Protocol PRN Reason: Hypoglycemia Protocol Dextrose (Glutose 15) 0 gm PO ONCE PRN; Protocol PRN Reason: Hypoglycemia Protocol Enoxaparin Sodium (Lovenox) 40 mg SC DAILY [facility] Last Admin: 10/10/18 09:48 Dose: 40 mg Glucagon (Glucagen Diagnostic Kit) 0 mg IM STAT PRN; Protocol PRN Reason: Hypoglycemia Protocol Hydromorphone HCl (Dilaudid) 0.5 mg IVP Q4H PRN PRN Reason: Pain, moderate (4-7) Last Admin: 10/09/18 02:24 Dose: 0.5 mg Hydromorphone/Sodium Chloride (Dilaudid Golf Technician) 6 mg IV Q4H PRN; Protocol PRN Reason: Pain, severe (8-10) Last Admin: 10/10/18 18:37 Dose: 6 mg Potassium Phosphate 15 mmole/ (Sodium Chloride) 255 mls @ 63 mls/hr IV ONCE ONE Stop: 10/11/18 11:56 Last Admin: 10/11/18 08:54 Dose: 63 mls/hr Insulin Aspart (Novolog) 0 unit SC Q6H [facility]; Protocol Last Admin: 10/11/18 06:11 Dose: Not Given Metoprolol Tartrate (Lopressor) 2.5 mg IVP Q6H [facility] Last Admin: 10/11/18 03:55 Dose: 2.5 mg Ondansetron HCl (Zofran Inj) 4 mg IVP Q4H PRN PRN Reason: Nausea/Vomiting Pantoprazole Sodium (Protonix Inj) 40 mg IVP Q12H [facility] Last Admin: 10/10/18 21:28 Dose: 40 mg Potassium Chloride (K-Dur 20 Meq Er Tab) 40 meq PO ONCE ONE Stop: 10/11/18 10:01 Vitamin A (Vitamin A & D Oint Ud Foilpak) 1 ea TOP Q6 PRN PRN Reason: for dry lips Last Admin: 10/08/18 21:43 Dose: 1 ea - Labs Labs: 10/11/18 06:24 10/11/18 06:24 PT 12.0 SECONDS (9.7-12.2) 10/07/18 16:00 INR 1.1 10/07/18 16:00 APTT 28 SECONDS (21-34) 10/07/18 16:00 - Constitutional Appears: No Acute Distress - Head Exam Head Exam: NORMAL INSPECTION, NORMOCEPHALIC - Eye Exam Eye Exam: EOMI, Normal appearance, PERRL - ENT Exam ENT Exam: Mucous Membranes Moist - Respiratory Exam Respiratory Exam: Clear to Ausculation Bilateral, NORMAL BREATHING PATTERN. absent: Decreased Breath Sounds, Wheezes - Cardiovascular Exam Cardiovascular Exam: +S1, +S2. absent: Irregular Rhythm, Murmur - GI/Abdominal Exam GI & Abdominal Exam: Soft, Normal Bowel Sounds. absent: Distended, Tenderness - Neurological Exam Neurological Exam: Alert, Awake, Oriented x3 - Psychiatric Exam Psychiatric exam: Normal Affect, Normal Mood - Skin Skin Exam: Dry, Intact, Normal Color, Warm Assessment and Plan - Assessment and Plan (Free Text) Plan: NSTEMI S/P Open Appendectomy Hx hypertension, type 2 diabetes, hyperlipidemia, CAD, moderate , PAD, PVD Management: - S/P Cardiac Catherization 08/2018: L Main: Mild calcific disease, LAD: Proximal 90% calcific disease, L Cx: Mild disease, RCA: Ostial calcific 90% stenosis, EF: 60%, moderate . Due to her fragility, severe lung disease high r isk for PCI/atherectomy or CABG. - Patient unable to tolerate full anticoagulation - Continue medical management for now Case discussed with Dr. Logan, Shavon Zurita DO, PGY2 <Alejo Logan - Last Filed: 10/11/18 21:29> Objective - Vital Signs/Intake and Output Vital Signs (last 24 hours): Temp Pulse Resp BP Pulse Ox 98.2 F 92 H 20 145/58 L 100 10/11/18 20:00 10/11/18 21:00 10/11/18 21:00 10/11/18 20:31 10/11/18 21:00 Intake and Output: 10/11/18 10/12/18 18:59 06:59 Intake Total 536 62 Output Total 700 Balance -164 62 - Medications Medications: Current Medications Acetaminophen (Tylenol 325mg Tab) 650 mg PO Q6 PRN PRN Reason: Fever >100.4 F Last Admin: 10/09/18 06:37 Dose: 650 mg Dextrose (Dextrose 50% Inj) 0 ml IV STAT PRN; Protocol PRN Reason: Hypoglycemia Protocol Dextrose (Glutose 15) 0 gm PO ONCE PRN; Protocol PRN Reason: Hypoglycemia Protocol Enoxaparin Sodium (Lovenox) 40 mg SC DAILY [facility] Last Admin: 10/11/18 10:12 Dose: 40 mg Furosemide (Lasix) 20 mg IVP DAILY [facility] Last Admin: 10/11/18 10:11 Dose: 20 mg Glucagon (Glucagen Diagnostic Kit) 0 mg IM STAT PRN; Protocol PRN Reason: Hypoglycemia Protocol Hydromorphone HCl (Dilaudid) 0.5 mg IVP Q4H PRN PRN Reason: Pain, moderate (4-7) Last Admin: 10/11/18 16:03 Dose: 0.5 mg Dextrose/Sodium Chloride (Dextrose 5%/0.9% Ns 1000 Ml) 1,000 mls @ 100 mls/hr IV .Q10H [facility] Last Admin: 10/11/18 14:48 Dose: 100 mls/hr Ciprofloxacin (Cipro 400mg/200ml Dsw) 400 mg in 200 mls @ 133 mls/hr IVPB Q12H [facility]; Protocol Metronidazole (Flagyl) 500 mg in 100 mls @ 100 mls/hr IVPB Q8H [facility]; Protocol Insulin Aspart (Novolog) 0 unit SC Q6H [facility]; Protocol Last Admin: 10/11/18 17:33 Dose: Not Given Metoprolol Tartrate (Lopressor) 2.5 mg IVP Q6H [facility] Last Admin: 10/11/18 16:03 Dose: 2.5 mg Ondansetron HCl (Zofran Inj) 4 mg IVP Q4H PRN PRN Reason: Nausea/Vomiting Pantoprazole Sodium (Protonix Inj) 40 mg IVP Q12H [facility] Last Admin: 10/11/18 10:12 Dose: 40 mg Vitamin A (Vitamin A & D Oint Ud Foilpak) 1 ea TOP Q6 PRN PRN Reason: for dry lips Last Admin: 10/08/18 21:43 Dose: 1 ea - Labs Labs: 10/11/18 06:24 10/11/18 06:24 PT 12.0 SECONDS (9.7-12.2) 10/07/18 16:00 INR 1.1 10/07/18 16:00 APTT 28 SECONDS (21-34) 10/07/18 16:00 Assessment and Plan - Assessment and Plan (Free Text) Plan: Patient seen and evaluated personally by me Plan of care d/w the medical examiner and s documented Patient has CAD/complicated to fix due to active GI bleed Eventhough moderate to high cardiac risk for GI procedures such as Endoscopy and colonoscopy recommend to proceed with GI work up as controlling the GI bleeding is necessary for PCI or CABG of the patient
[2018-10-11] MEDS ORDERED: Potassium Chloride 20 mEq ER Tab PO ONE (10:00)
[2018-10-11] MEDS: Enoxaparin 40 mg Syringe SC SCH (10:12)
--- NOTE | 2018-10-11 10:18 | CP.CCUPN ---
CCU Subjective - Physician Review Subjective (Free Text): 10/11/18 10:16 Stephanie Santana PGY1 Progress note for Dr. Membreno Pt was examined at bedside this morning. She reports improvement in her abdominal pain, but denies any bowel movements. She reports passing flatus. Pt also reports some shortness of breath. Pt denies fever, chills, chest pain, nausea, vomiting, dysuria. CCU Objective - Vital Signs / Intake & Output Vital Signs (Last 4 hours): Vital Signs Temp Pulse Resp BP Pulse Ox 10/11/18 10:11 140/50 L 10/11/18 09:00 83 19 100 10/11/18 08:30 82 19 125/40 L 100 10/11/18 08:00 98.2 F 90 17 100 10/11/18 07:35 85 10/11/18 07:30 81 18 129/44 L 100 10/11/18 07:00 97 H 19 10/11/18 06:31 86 22 135/44 L 98 Intake and Output (Last 8hrs): Intake & Output 10/10/18 10/11/18 10/11/18 22:59 06:59 14:59 Intake Total 645 100 Output Total 1100 300 Balance -455 -200 Intake: Intake, IV Amount 300 100 Right Forearm 300 100 Oral 0 Blood Product 325 Red Blood Cells Cpd As1 325 Lr Unit [id number] Other 20 Red Blood Cells Cpd As1 20 Lr Unit [id number] Output: Urine 1100 300 Urine, Voided 1100 300 Other: # Bowel Movements 0 - Physical Exam Head: Positive for: Atraumatic, Normocephalic Pupils: Positive for: PERRL Extroacular Muscles: Positive for: EOMI Conjunctiva: Positive for: Normal Mouth: Positive for: Moist Mucous Membranes Respiratory/Chest: Positive for: Decreased Breath Sounds. Negative for: Respiratory Distress, Accessory Muscle Use, Wheezes, Rales, Rhonchi Cardiovascular: Positive for: Murmurs, Normal S1, S2, Irregular Rhythm Abdomen: Positive for: Other (surgical site in midline of abdomen clean, dry, intact). Negative for: Tenderness, Distention, Normal Bowel Sounds, Peritoneal Signs Upper Extremity: Positive for: Normal Inspection. Negative for: Cyanosis, Edema Lower Extremity: Positive for: Normal Inspection. Negative for: Edema Neurological: Positive for: GCS=15, CN II-XII Intact, Speech Normal Skin: Positive for: Normal Color Psychiatric: Positive for: Alert, Oriented x 3 - Medications Active Medications: Active Medications Generic Name Dose Route Start Last Admin Trade Name Freq PRN Reason Stop Dose Admin Acetaminophen 650 mg 10/09/18 06:14 10/09/18 06:37 Tylenol 325mg Tab PO 650 mg Q6 PRN Administration Fever >100.4 F Dextrose 0 ml 10/07/18 22:01 Dextrose 50% Inj IV STAT PRN Hypoglycemia Protocol Protocol Dextrose 0 gm 10/07/18 22:01 Glutose 15 PO ONCE PRN Hypoglycemia Protocol Protocol Enoxaparin Sodium 40 mg 10/10/18 10:00 10/11/18 10:12 Lovenox SC 40 mg DAILY JOSE ANTONIO Administration Furosemide 20 mg 10/11/18 10:00 10/11/18 10:11 Lasix IVP 20 mg DAILY JOSE ANTONIO Administration Glucagon 0 mg 10/07/18 22:01 Glucagen Diagnostic Kit IM STAT PRN Hypoglycemia Protocol Protocol Hydromorphone HCl 0.5 mg 10/08/18 18:01 10/09/18 02:24 Dilaudid IVP 0.5 mg Q4H PRN Administration Pain, moderate (4-7) Potassium Phosphate 15 mmole/ 255 mls @ 63 mls/hr 10/11/18 07:58 10/11/18 08:54 Sodium Chloride IV 10/11/18 11:56 63 mls/hr ONCE ONE Administration Insulin Aspart 0 unit 10/09/18 00:00 10/11/18 06:11 Novolog SC Not Given Q6H JOSE ANTONIO Protocol Metoprolol Tartrate 2.5 mg 10/09/18 10:45 10/11/18 10:12 Lopressor IVP 2.5 mg Q6H JOSE ANTONIO Administration Ondansetron HCl 4 mg 10/07/18 22:25 Zofran Inj IVP Q4H PRN Nausea/Vomiting Pantoprazole Sodium 40 mg 10/07/18 22:00 10/11/18 10:12 Protonix Inj IVP 40 mg Q12H JOSE ANTONIO Administration Vitamin A 1 ea 10/08/18 20:00 10/08/18 21:43 Vitamin A & D Oint Ud Foilpak TOP 1 ea Q6 PRN Administration for dry lips - Patient Studies Lab Studies: Microbiology Studies 10/07/18 19:12 Blood Culture - Preliminary Blood NO GROWTH AFTER 3 DAYS 10/07/18 19:04 Blood Culture - Preliminary Blood NO GROWTH AFTER 3 DAYS 10/08/18 00:37 MRSA Culture (Admit) - Final Naris MRSA NOT DETECTED Lab Studies 10/11/18 10/11/18 10/11/18 Range/Units 06:24 06:24 05:47 WBC 15.5 H (4.8-10.8) K/uL RBC 3.31 L (3.80-5.20) Mil/uL Hgb 9.7 L (11.0-16.0) g/dL Hct 29.4 L (34.0-47.0) % MCV 88.7 (81.0-99.0) fL MCH 29.3 (27.0-31.0) pg MCHC 33.0 (33.0-37.0) g/dL RDW 17.0 H (11.5-14.5) % Plt Count 203 (130-400) K/uL MPV 8.1 (7.2-11.7) fL Neut % (Auto) 86.6 H (50.0-75.0) % Lymph % (Auto) 4.0 L (20.0-40.0) % [place] % (Auto) 8.2 (0.0-10.0) % Eos % (Auto) 0.8 (0.0-4.0) % Baso % (Auto) 0.4 (0.0-2.0) % Neut # (Auto) 13.4 H (1.8-7.0) K/uL Lymph # (Auto) 0.6 L (1.0-4.3) K/uL [place] # (Auto) 1.3 H (0.0-0.8) K/uL Eos # (Auto) 0.1 (0.0-0.7) K/uL Baso # (Auto) 0.1 (0.0-0.2) K/uL Neutrophils % (Manual) 92 H (50-75) % Lymphocytes % (Manual) 3 L (20-40) % Monocytes % (Manual) 4 (0-10) % Eosinophils % (Manual) 1 (0-4) % Platelet Estimate Normal (NORMAL) RBC Morphology Normal Sodium 138 (132-148) mmol/L Potassium 3.3 L (3.6-5.2) mmol/L Chloride 104 (98-107) mmol/L Carbon Dioxide 21 L (22-30) mmol/L Anion Gap 16 (10-20) BUN 15 (7-17) mg/dL Creatinine 0.7 (0.7-1.2) mg/dL Est GFR ( Amer) > 60 Est GFR (Non-Af Amer) > 60 POC Glucose (mg/dL) 145 H (65-110) mg/dL Random Glucose 144 H (65-105) mg/dL Calcium 8.7 (8.6-10.4) mg/dl Phosphorus 1.9 L (2.5-4.5) mg/dL Magnesium 1.8 (1.6-2.3) mg/dL Total Bilirubin 0.8 (0.2-1.3) mg/dL AST 44 H (14-36) U/L ALT 26 (9-52) U/L Alkaline Phosphatase 62 (38-126) U/L Total Protein 5.8 L (6.3-8.3) g/dL Albumin 3.3 L (3.5-5.0) g/dL Globulin 2.5 (2.2-3.9) gm/dL Albumin/Globulin Ratio 1.3 (1.0-2.1) Blood Type Antibody Screen 10/10/18 10/10/18 10/10/18 Range/Units 23:33 17:41 12:07 WBC (4.8-10.8) K/uL RBC (3.80-5.20) Mil/uL Hgb (11.0-16.0) g/dL Hct (34.0-47.0) % MCV (81.0-99.0) fL MCH (27.0-31.0) pg MCHC (33.0-37.0) g/dL RDW (11.5-14.5) % Plt Count (130-400) K/uL MPV (7.2-11.7) fL Neut % (Auto) (50.0-75.0) % Lymph % (Auto) (20.0-40.0) % [place] % (Auto) (0.0-10.0) % Eos % (Auto) (0.0-4.0) % Baso % (Auto) (0.0-2.0) % Neut # (Auto) (1.8-7.0) K/uL Lymph # (Auto) (1.0-4.3) K/uL [place] # (Auto) (0.0-0.8) K/uL Eos # (Auto) (0.0-0.7) K/uL Baso # (Auto) (0.0-0.2) K/uL Neutrophils % (Manual) (50-75) % Lymphocytes % (Manual) (20-40) % Monocytes % (Manual) (0-10) % Eosinophils % (Manual) (0-4) % Platelet Estimate (NORMAL) RBC Morphology Sodium (132-148) mmol/L Potassium (3.6-5.2) mmol/L Chloride (98-107) mmol/L Carbon Dioxide (22-30) mmol/L Anion Gap (10-20) BUN (7-17) mg/dL Creatinine (0.7-1.2) mg/dL Est GFR ( Amer) Est GFR (Non-Af Amer) POC Glucose (mg/dL) 145 H 162 H 172 H (65-110) mg/dL Random Glucose (65-105) mg/dL Calcium (8.6-10.4) mg/dl Phosphorus (2.5-4.5) mg/dL Magnesium (1.6-2.3) mg/dL Total Bilirubin (0.2-1.3) mg/dL AST (14-36) U/L ALT (9-52) U/L Alkaline Phosphatase (38-126) U/L Total Protein (6.3-8.3) g/dL Albumin (3.5-5.0) g/dL Globulin (2.2-3.9) gm/dL Albumin/Globulin Ratio (1.0-2.1) Blood Type Antibody Screen 10/07/18 Range/Units 18:01 WBC (4.8-10.8) K/uL RBC (3.80-5.20) Mil/uL Hgb (11.0-16.0) g/dL Hct (34.0-47.0) % MCV (81.0-99.0) fL MCH (27.0-31.0) pg MCHC (33.0-37.0) g/dL RDW (11.5-14.5) % Plt Count (130-400) K/uL MPV (7.2-11.7) fL Neut % (Auto) (50.0-75.0) % Lymph % (Auto) (20.0-40.0) % [place] % (Auto) (0.0-10.0) % Eos % (Auto) (0.0-4.0) % Baso % (Auto) (0.0-2.0) % Neut # (Auto) (1.8-7.0) K/uL Lymph # (Auto) (1.0-4.3) K/uL [place] # (Auto) (0.0-0.8) K/uL Eos # (Auto) (0.0-0.7) K/uL Baso # (Auto) (0.0-0.2) K/uL Neutrophils % (Manual) (50-75) % Lymphocytes % (Manual) (20-40) % Monocytes % (Manual) (0-10) % Eosinophils % (Manual) (0-4) % Platelet Estimate (NORMAL) RBC Morphology Sodium (132-148) mmol/L Potassium (3.6-5.2) mmol/L Chloride (98-107) mmol/L Carbon Dioxide (22-30) mmol/L Anion Gap (10-20) BUN (7-17) mg/dL Creatinine (0.7-1.2) mg/dL Est GFR ( Amer) Est GFR (Non-Af Amer) POC Glucose (mg/dL) (65-110) mg/dL Random Glucose (65-105) mg/dL Calcium (8.6-10.4) mg/dl Phosphorus (2.5-4.5) mg/dL Magnesium (1.6-2.3) mg/dL Total Bilirubin (0.2-1.3) mg/dL AST (14-36) U/L ALT (9-52) U/L Alkaline Phosphatase (38-126) U/L Total Protein (6.3-8.3) g/dL Albumin (3.5-5.0) g/dL Globulin (2.2-3.9) gm/dL Albumin/Globulin Ratio (1.0-2.1) Blood Type O POSITIVE Antibody Screen Negative Laboratory Results - last 24 hr 10/07/18 10/10/18 10/10/18 18:01 12:07 17:41 WBC RBC Hgb Hct MCV MCH MCHC RDW Plt Count MPV Neut % (Auto) Lymph % (Auto) [place] % (Auto) Eos % (Auto) Baso % (Auto) Neut # (Auto) Lymph # (Auto) [place] # (Auto) Eos # (Auto) Baso # (Auto) Neutrophils % (Manual) Lymphocytes % (Manual) Monocytes % (Manual) Eosinophils % (Manual) Platelet Estimate RBC Morphology Sodium Potassium Chloride Carbon Dioxide Anion Gap BUN Creatinine Est GFR ( Amer) Est GFR (Non-Af Amer) POC Glucose (mg/dL) 172 H 162 H Random Glucose Calcium Phosphorus Magnesium Total Bilirubin AST ALT Alkaline Phosphatase Total Protein Albumin Globulin Albumin/Globulin Ratio Blood Type O POSITIVE Antibody Screen Negative 10/10/18 10/11/18 10/11/18 23:33 05:47 06:24 WBC 15.5 H RBC 3.31 L Hgb 9.7 L Hct 29.4 L MCV 88.7 MCH 29.3 MCHC 33.0 RDW 17.0 H Plt Count 203 MPV 8.1 Neut % (Auto) 86.6 H Lymph % (Auto) 4.0 L [place] % (Auto) 8.2 Eos % (Auto) 0.8 Baso % (Auto) 0.4 Neut # (Auto) 13.4 H Lymph # (Auto) 0.6 L [place] # (Auto) 1.3 H Eos # (Auto) 0.1 Baso # (Auto) 0.1 Neutrophils % (Manual) 92 H Lymphocytes % (Manual) 3 L Monocytes % (Manual) 4 Eosinophils % (Manual) 1 Platelet Estimate Normal RBC Morphology Normal Sodium Potassium Chloride Carbon Dioxide Anion Gap BUN Creatinine Est GFR ( Amer) Est GFR (Non-Af Amer) POC Glucose (mg/dL) 145 H 145 H Random Glucose Calcium Phosphorus Magnesium Total Bilirubin AST ALT Alkaline Phosphatase Total Protein Albumin Globulin Albumin/Globulin Ratio Blood Type Antibody Screen 10/11/18 06:24 WBC RBC Hgb Hct MCV MCH MCHC RDW Plt Count MPV Neut % (Auto) Lymph % (Auto) [place] % (Auto) Eos % (Auto) Baso % (Auto) Neut # (Auto) Lymph # (Auto) [place] # (Auto) Eos # (Auto) Baso # (Auto) Neutrophils % (Manual) Lymphocytes % (Manual) Monocytes % (Manual) Eosinophils % (Manual) Platelet Estimate RBC Morphology Sodium 138 Potassium 3.3 L Chloride 104 Carbon Dioxide 21 L Anion Gap 16 BUN 15 Creatinine 0.7 Est GFR ( Amer) > 60 Est GFR (Non-Af Amer) > 60 POC Glucose (mg/dL) Random Glucose 144 H Calcium 8.7 Phosphorus 1.9 L Magnesium 1.8 Total Bilirubin 0.8 AST 44 H ALT 26 Alkaline Phosphatase 62 Total Protein 5.8 L Albumin 3.3 L Globulin 2.5 Albumin/Globulin Ratio 1.3 Blood Type Antibody Screen Fingerstick Blood Sugar Results: 145 Review of Systems - Review of Systems Review of Systems: as per [facility] Critical Care Progress Note - Nutrition Nutrition: Nutrition Category Date Time Status NPO Diet [DIET] Diets 10/09/18 Breakfast Active Assessment/Plan - Assessment and Plan (Free Text) Assessment: 73yo F with PMH DM, HTN, HLD, CAD, COPD, asthma, arthritis, anxiety, osteoporosis presented to ED with black stool and abdominal pain, found to have acute appendicitis. S/p open appendectomy 10/08, currently being monitored in ICU. Plan: Neuro - AAOx3 - no focal deficits Cardiovascular - h/o CAD, HTN, HLD - CXR 10/11: pulmonary venous congestion, CHF improved from previous CXR - ECHO 08/19: normal systolic LV function, normal EF. moderate and AR - lopressor 2.5mg IVP q6h - lasix 20mg IV daily - maintain normotension - conservative medical management, no full anticoagulation at this time as per cardio - Cardio consulted, Dr. Logan - recmyriam appreciated Pulm - h/o COPD, asthma - CXR 10/11: pulmonary venous congestion, CHF improved from previous CXR - lasix 20mg IV daily - d/c Bipap - incentive spirometry - maintain SpO2 >92% GI - CT abd/pel 10/07: acute appendicitis, extending from pelvic cecum to retrocecal location in RLQ. - s/p open appendectomy and lysis of adhesions 10/08 - no BM yet - zofran 4mg IVP q4h PRN - protonix 40mg IVP q12h - dilaudid 0.5mg q4h PRN - tylenol 650mg q6h PRN - NPO, advance diet as per Sx - Gen Sx consulted, Dr. Chucho abdi appreciated - GI consulted, Dr. Pipe abdi appreciated Heme - H/H 9.7/29.4 - s/p 2u PRBC - lovenox 40mg SC daily Endo - h/o DM - low dose novolog q6h - accuchecks q6h - hypoglycemia protocol - maintain euglycemic ID - pt afebrile - leukocytosis - BCx neg x3 PPX: GI: protonix 40mg IVP q12h DVT: lovenox 40mg SC daily NPO Pt seen and case discussed with Dr. Membreno
[2018-10-11] MEDS: HYDROmorphone 0.5 mg/0.5 ml ISec IVP PRN ×3 (11:41→22:36)
[2018-10-11] MEDS ORDERED: Iodixanol 320 MG/ML 100 ML BOTTLE IV ONE (11:53)
--- NOTE | 2018-10-11 13:32 | CT ---
Date of service: 10/11/2018 PROCEDURE: CT Abdomen and Pelvis with contrast HISTORY: WBC, abdominal tenderness COMPARISON: Comparison made with prior CT scan abdomen pelvis 10/07/2018. Comparison also made with prior CT scan abdomen and pelvis dated 04/22/2013.. TECHNIQUE: Contiguous helical/transaxial sections of the abdomen pelvis performed following intravenous injection of approximately 100 cc Visipaque 320 contrast material. Additional 2D sagittal and coronal reformats generated Radiation dose: Total exam DLP = 729.61 mGy-cm. This CT exam was performed using one or more of the following dose reduction techniques: Automated exposure control, adjustment of the mA and/or kV according to patient size, and/or use of iterative reconstruction technique. FINDINGS: LOWER THORAX: Small size right-sided effusion and mild right basilar atelectasis.. Small amount of fluid appears to be tracking along the lower portion of the major fissure.. There a tiny left-sided effusion and minor left basilar atelectasis. Heart is enlarged. No significant pericardial effusion. LIVER: Liver exhibits normal size measuring approximately 15 cm in CC dimension. Mild to moderate diffuse fatty hepatic infiltration.. Portal and splenic veins are opacified. No gross intrahepatic biliary ductal dilatation. GALLBLADDER AND BILE DUCTS: Gallbladder is hyperdense in appearance likely due to vicarious excretion of contrast material. Small amount of fluid is present within the gallbladder fossa. PANCREAS: Pancreas is atrophic and fatty replaced. No obvious pancreatic masses collections or calcifications. SPLEEN: Redemonstrated is a somewhat heterogeneous though overall low-attenuation elliptical shaped lesion measuring approximately 3.2 x 3.0 cm (AP and transverse dimension) in the anterior aspect of the spleen of uncertain etiology. Findings may represent a hemangioma which has increased in size slightly when compared with prior exams dating back to 04/22/2013 when this lesion measured approximately 2.4 x 2.3 cm in AP and transverse dimension. ADRENALS: Enlarged somewhat nodular appearing left adrenal gland the. Slightly enlarged right adrenal gland. KIDNEYS AND URETERS: Kidneys demonstrate relatively symmetric nephrograms. No evidence of nephrolithiasis or hydronephrosis.. There is a tiny approximately 3.5 mm rounded low-attenuation lesion lateral cortex mid pole left kidney probably representing a small hyperdense cyst with Hounsfield units in the mid 20s small amount of perinephric infiltration and fluid present. VASCULATURE: Unremarkable. No aortic aneurysm. Moderate aortic atherosclerotic calcification or mural plaque present. BOWEL: Evaluation of the bowel is somewhat limited due the lack of oral contrast. The stomach is incompletely distended which in part accounts for thick-walled appearance however there does appear to be questionable mild wall edema. Rule out gastritis. Fecalized material seen loops of small bowel. In addition, there are a few distal loops of small bowel that exhibit slight dilatation suggesting ileus. Colonic diverticulosis again noted there is wall thickening of the right colon suggesting colitis. There is also some mild wall thickening of short segment of the descending colon of possibly representing a mild colitis. A apparent anastomotic suture material along the sigmoid colon. Clinical correlation with surgical history recommended.. APPENDIX: Status post appendectomy. PERITONEUM: There is a relatively large amount of pelvic ascites with small amount of ascites seen in the upper abdomen surrounding the liver and spleen... Postoperative infiltration changes and thickening mid anterior abdominal wall subjacent to skin closure dejan. No free fluid. No free air. Small fat containing bilateral inguinal hernias. LYMPH NODES: Unremarkable. No enlarged lymph nodes. BLADDER: Urinary bladder is physiologically distended. There is a small amount of air within the urinary bladder possibly due to recent instrumentation however the possibility of infection with gas-forming organism not excluded.. Correlation with urinalysis. REPRODUCTIVE: Hysterectomy. BONES: Minor multilevel degenerative spondylosis of the lower thoracic and lumbar spine. OTHER FINDINGS: None. IMPRESSION: Status post appendectomy. There is a large amount of fluid in the pelvis and a small amount of fluid in the upper abdomen surrounding the liver and spleen. Small amount of perinephric fluid and infiltration also noted. Mild edematous wall changes of the right colon and short segment of the descending colon consistent with colitis.. There also appears to be mild edematous wall changes of the stomach. Rule out gastritis redemonstrated are scattered colonic diverticula... Note also made of apparent anastomosis distal sigmoid colon region. Small amount of perinephric fluid and infiltration of uncertain etiology. Urinary bladder contains air possibly due to recent instrumentation however the possibility of a the gas-forming organism not excluded.. Hysterectomy. Fatty hepatic infiltration. Mild dilatation proximal pancreatic duct. Small bilateral effusions and bibasilar atelectasis right greater than left. Large splenic lesion slightly increased in size from 2013. Findings may represent a hemangioma of given its relatively indolent appearance and only minimally increased in size from prior exam Findings ICU nurse Yemi at approximately 1:15 p.m. with written down and read back verification
--- NOTE | 2018-10-11 13:49 | RAD ---
Chest x-ray single frontal view HISTORY: Shortness of breath. Comparison: 10/09/2018 Findings: Moderate venous congestion. Patchy consolidative opacification in the left mid to lower lung zone with small to moderate left pleural effusion. Biapical pleural thickening with upper lobe granulomatous changes. Nodular density seen projecting over the medial aspect of the right lung apex. Bilateral hilar prominence. Cardiomegaly. Atherosclerotic calcification at the aortic knob. Enlarged ectatic aorta. Degenerative changes in the spine and shoulders. Question deformities of a few mid to lower right thoracic ribs. Surgical clips in the upper abdomen. Impression: Moderate venous congestion. Patchy consolidative opacification in the left mid to lower lung zone with small to moderate left pleural effusion. Biapical pleural thickening with upper lobe granulomatous changes. Nodular density seen projecting over the medial aspect of the right lung apex. Bilateral hilar prominence. Cardiomegaly. Atherosclerotic calcification at the aortic knob. Enlarged ectatic aorta. Degenerative changes in the spine and shoulders. Question deformities of a few mid to lower right thoracic ribs. Surgical clips in the upper abdomen.
[2018-10-11] MEDS ORDERED: Potassium Phosphate 15 MMOLE in Dextrose 5% In Water 250 ML IVPB ONE (14:00)
[2018-10-11] MEDS: Dextrose 5%/0.9% NS 1,000 ML IV SCH (14:48)
--- NOTE | 2018-10-11 17:16 | CP.PCM.PN ---
Subjective - Date & Time of Evaluation Date of Evaluation: 10/11/18 Time of Evaluation: 17:13 - Subjective Subjective: General Surgery Consult Note for Dr. Rankin This 73F was seen and examined this AM at bedside. No acute events reported overnight. She is still not passing gas or moving her bowels. She denies any nausea or vomiting. She denies chest pain or SOB. She complains of abdominal pain Objective - Vital Signs/Intake and Output Vital Signs (last 24 hours): Temp Pulse Resp BP Pulse Ox 97.6 F 85 22 135/43 L 99 10/11/18 16:00 10/11/18 17:00 10/11/18 17:00 10/11/18 16:30 10/11/18 17:00 Intake and Output: 10/11/18 10/11/18 06:59 18:59 Intake Total 300 474 Output Total 600 700 Balance -300 -226 - Medications Medications: Current Medications Acetaminophen (Tylenol 325mg Tab) 650 mg PO Q6 PRN PRN Reason: Fever >100.4 F Last Admin: 10/09/18 06:37 Dose: 650 mg Dextrose (Dextrose 50% Inj) 0 ml IV STAT PRN; Protocol PRN Reason: Hypoglycemia Protocol Dextrose (Glutose 15) 0 gm PO ONCE PRN; Protocol PRN Reason: Hypoglycemia Protocol Enoxaparin Sodium (Lovenox) 40 mg SC DAILY [facility] Last Admin: 10/11/18 10:12 Dose: 40 mg Furosemide (Lasix) 20 mg IVP DAILY [facility] Last Admin: 10/11/18 10:11 Dose: 20 mg Glucagon (Glucagen Diagnostic Kit) 0 mg IM STAT PRN; Protocol PRN Reason: Hypoglycemia Protocol Hydromorphone HCl (Dilaudid) 0.5 mg IVP Q4H PRN PRN Reason: Pain, moderate (4-7) Last Admin: 10/11/18 16:03 Dose: 0.5 mg Dextrose/Sodium Chloride (Dextrose 5%/0.9% Ns 1000 Ml) 1,000 mls @ 100 mls/hr IV .Q10H JOSE ANTONIO Last Admin: 10/11/18 14:48 Dose: 100 mls/hr Potassium Phosphate 15 mmole/ (Dextrose) 255 mls @ 42.5 mls/hr IVPB ONCE ONE Stop: 10/11/18 19:59 Last Admin: 10/11/18 14:48 Dose: 42.5 mls/hr Insulin Aspart (Novolog) 0 unit SC Q6H JOSE ANTONIO; Protocol Last Admin: 10/11/18 13:21 Dose: Not Given Metoprolol Tartrate (Lopressor) 2.5 mg IVP Q6H JOSE ANTONIO Last Admin: 10/11/18 16:03 Dose: 2.5 mg Ondansetron HCl (Zofran Inj) 4 mg IVP Q4H PRN PRN Reason: Nausea/Vomiting Pantoprazole Sodium (Protonix Inj) 40 mg IVP Q12H [facility] Last Admin: 10/11/18 10:12 Dose: 40 mg Vitamin A (Vitamin A & D Oint Ud Foilpak) 1 ea TOP Q6 PRN PRN Reason: for dry lips Last Admin: 10/08/18 21:43 Dose: 1 ea - Labs Labs: 10/11/18 06:24 10/11/18 06:24 PT 12.0 SECONDS (9.7-12.2) 10/07/18 16:00 INR 1.1 10/07/18 16:00 APTT 28 SECONDS (21-34) 10/07/18 16:00 - Constitutional Appears: Non-toxic, No Acute Distress - Head Exam Head Exam: ATRAUMATIC, NORMOCEPHALIC - Eye Exam Eye Exam: EOMI - ENT Exam ENT Exam: Mucous Membranes Moist - Respiratory Exam Respiratory Exam: NORMAL BREATHING PATTERN - Cardiovascular Exam Cardiovascular Exam: +S1, +S2 - GI/Abdominal Exam GI & Abdominal Exam: Soft, Tenderness. absent: Distended, Firm, Guarding, Rigid Additional comments: Dressing clean dry and intact abdomen appropriately tender. - Extremities Exam Extremities Exam: Normal Inspection - Neurological Exam Neurological Exam: Alert, Awake - Psychiatric Exam Psychiatric exam: Normal Affect, Normal Mood - Skin Skin Exam: Dry, Intact Assessment and Plan - Assessment and Plan (Free Text) Assessment: 73F POD#3 s/p open appendectomy with extensive adhesiolysis NPO Pain medication out of bed CT abdomen and pelvis with IV contrast further recs per Dr. Chucho Ayers PGY3
[2018-10-11] MEDS: Ciprofloxacin 400mg/200ml D5W 400 MG/200 ML BAG IVPB SCH (22:30)
--- NOTE | 2018-10-11 23:44 | PN ---
DATE: 10/11/2018 SUBJECTIVE: The patient is seen today, 10/11/2018. She still did not pass gas, postoperative day #3. OBJECTIVE: VITAL SIGNS: Blood pressure 141/45, temperature 98.2, respiratory rate 19, and pulse 90. HEENT: Pupils equal and reactive to light. Normal appearing mucosa of the conjunctivae. NECK: Supple. No JVD. No carotid bruit. No lymph node. No thyromegaly. CHEST AND LUNGS: Bilateral symmetrical expansion. Good air exchange. No rales, no rhonchi. CARDIOVASCULAR SYSTEM: PMI not localized. S1, S2. No additional sounds. ABDOMEN: No bowel sounds could be heard, and there is tenderness at the site of the surgical wound. EXTREMITIES: No cyanosis, no clubbing, no edema. CENTRAL NERVOUS SYSTEM: Alert, awake, and oriented x2. No neurological deficit could be appreciated. ASSESSMENT: 1. Postoperative day #3, status post appendectomy and lysis of adhesion. 2. Type 2 diabetes mellitus. 3. Hypertension. PLAN: Follow the CAT scan done by Surgery and follow surgical recommendations. Continue current antibiotics and IV fluids. Kd Ledesma MD
[2018-10-12] MEDS: Dextrose 5%/0.9% NS 1,000 ML IV SCH ×3 (00:04→19:00)
[2018-10-12] MEDS: HYDROmorphone 0.5 mg/0.5 ml ISec IVP PRN ×5 (03:42→22:37)
[2018-10-12] MEDS: metroNIDAZOLE IV 500 mg/100 ml 500 MG/100 ML BAG IVPB SCH ×3 (05:33→21:26)
[2018-10-12] MEDS: (Novolog) Insulin Aspart, Recombinant 100 u/ml 10 ml vial SC SCH ×4 (05:34→18:31)
[2018-10-12] MEDS: Metoprolol 1 mg/ml Inj IVP SCH ×4 (05:36→22:37)
[2018-10-12 06:10] LABS: BASO % 0.3 % (0.0-2.0); EOS # 0.3 K/uL (0.0-0.7); EOS % 2.4 % (0.0-4.0); HEMOGLOBIN 10.1 g/dL (11.0-16.0); LYMPH # 0.6 K/uL (1.0-4.3); LYMPH % 4.9 % (20.0-40.0); MEAN CELL VOLUME 90.5 fL (81.0-99.0); MEAN CORPUSCULAR HEMOGLOBIN 30.2 pg (27.0-31.0); MEAN CORPUSCULAR HGB CONC 33.4 g/dL (33.0-37.0); MEAN PLATELET VOLUME 8.1 fL (7.2-11.7); MONO # 1.2 K/uL (0.0-0.8); MONO % 10.2 % (0.0-10.0); NEUT # 9.9 K/uL (1.8-7.0); NEUT % 82.2 % (50.0-75.0); NRBC % 0.1 % (0.0-2.0); PLATELET COUNT 224 K/uL (130-400); RBC 3.33 Mil/uL (3.80-5.20); RED CELL DISTRIBUTION WIDTH 16.4 % (11.5-14.5)
[2018-10-12 06:33] LABS: ALB/GLOB RATIO 1.2 (1.0-2.1); ALBUMIN 3.4 g/dL (3.5-5.0); ALT/SGPT 24 U/L (9-52); AST/SGOT 28 U/L (14-36); BLOOD UREA NITROGEN 14 mg/dL (7-17); CALCIUM 8.8 mg/dl (8.6-10.4); GFR NON-AFRICAN AMERICAN > 60
[2018-10-12] MEDS ORDERED: Potassium Phosphate 30 MMOLE in Dextrose 5% In Water 250 ML IVPB ONE (07:50)
[2018-10-12] MEDS: Magnesium Sulfate 1 gm in D5W 1 GM/100 ML BAG IVPB SCH ×2 (08:33→09:19)
[2018-10-12 08:54] LABS: ANISOCYTOSIS SLIGHT; EOSINOPHIL 3 % (0-4); LYMPHOCYTE 3 % (20-40); MONOCYTE 7 % (0-10); NEUTROPHIL 87 % (50-75); PLATELET ESTIMATE NORMAL (NORMAL); TOTAL CELLS COUNTED 100
[2018-10-12 08:55] LABS: HYPOCHROMIC SLIGHT; POLYCHROMIC SLIGHT
--- NOTE | 2018-10-12 09:04 | CP.PCM.PN ---
Subjective - Date & Time of Evaluation Date of Evaluation: 10/12/18 Time of Evaluation: 09:01 - Subjective Subjective: General Surgery Consult Note for Dr. Rankin This 73F was seen and examined this AM at bedside. No acute events reported overnight. She is still not passing gas or moving her bowels. She denies any nausea or vomiting. She denies chest pain or SOB. Waiting for bowel function to return. Objective - Vital Signs/Intake and Output Vital Signs (last 24 hours): Temp Pulse Resp BP Pulse Ox 98.2 F 89 21 162/57 H 100 10/12/18 04:00 10/12/18 06:00 10/12/18 06:00 10/12/18 05:30 10/12/18 06:00 Intake and Output: 10/12/18 10/12/18 06:59 18:59 Intake Total 1286 Output Total 500 Balance 786 - Medications Medications: Current Medications Acetaminophen (Tylenol 325mg Tab) 650 mg PO Q6 PRN PRN Reason: Fever >100.4 F Last Admin: 10/09/18 06:37 Dose: 650 mg Dextrose (Dextrose 50% Inj) 0 ml IV STAT PRN; Protocol PRN Reason: Hypoglycemia Protocol Dextrose (Glutose 15) 0 gm PO ONCE PRN; Protocol PRN Reason: Hypoglycemia Protocol Enoxaparin Sodium (Lovenox) 40 mg SC DAILY [facility] Last Admin: 10/11/18 10:12 Dose: 40 mg Furosemide (Lasix) 20 mg IVP DAILY [facility] Last Admin: 10/11/18 10:11 Dose: 20 mg Glucagon (Glucagen Diagnostic Kit) 0 mg IM STAT PRN; Protocol PRN Reason: Hypoglycemia Protocol Hydromorphone HCl (Dilaudid) 0.5 mg IVP Q4H PRN PRN Reason: Pain, moderate (4-7) Last Admin: 10/12/18 08:28 Dose: 0.5 mg Dextrose/Sodium Chloride (Dextrose 5%/0.9% Ns 1000 Ml) 1,000 mls @ 100 mls/hr IV .Q10H [facility] Last Admin: 10/12/18 00:04 Dose: Not Given Ciprofloxacin (Cipro 400mg/200ml Dsw) 400 mg in 200 mls @ 133 mls/hr IVPB Q12H [facility]; Protocol Last Admin: 10/11/18 22:30 Dose: 133 mls/hr Metronidazole (Flagyl) 500 mg in 100 mls @ 100 mls/hr IVPB Q8H [facility]; Protocol Last Admin: 10/12/18 05:33 Dose: 100 mls/hr Potassium Phosphate 30 mmole/ (Dextrose) 260 mls @ 42.5 mls/hr IVPB ONCE ONE Stop: 10/12/18 13:57 Insulin Aspart (Novolog) 0 unit SC Q6H [facility]; Protocol Last Admin: 10/12/18 05:34 Dose: Not Given Metoprolol Tartrate (Lopressor) 2.5 mg IVP Q6H [facility] Last Admin: 10/12/18 05:36 Dose: 2.5 mg Ondansetron HCl (Zofran Inj) 4 mg IVP Q4H PRN PRN Reason: Nausea/Vomiting Pantoprazole Sodium (Protonix Inj) 40 mg IVP Q12H [facility] Last Admin: 10/11/18 22:30 Dose: 40 mg Vitamin A (Vitamin A & D Oint Ud Foilpak) 1 ea TOP Q6 PRN PRN Reason: for dry lips Last Admin: 10/08/18 21:43 Dose: 1 ea - Labs Labs: 10/12/18 06:03 10/12/18 06:03 PT 12.0 SECONDS (9.7-12.2) 10/07/18 16:00 INR 1.1 10/07/18 16:00 APTT 28 SECONDS (21-34) 10/07/18 16:00 - Constitutional Appears: Non-toxic, No Acute Distress - Head Exam Head Exam: ATRAUMATIC, NORMOCEPHALIC - Eye Exam Eye Exam: EOMI - ENT Exam ENT Exam: Mucous Membranes Moist - Respiratory Exam Respiratory Exam: NORMAL BREATHING PATTERN - Cardiovascular Exam Cardiovascular Exam: +S1, +S2 - GI/Abdominal Exam GI & Abdominal Exam: Soft, Tenderness. absent: Distended, Firm, Guarding, Rigid Additional comments: Jesus in place, wound well approximated non draining - Extremities Exam Extremities Exam: Normal Inspection - Neurological Exam Neurological Exam: Alert, Awake - Psychiatric Exam Psychiatric exam: Normal Affect, Normal Mood - Skin Skin Exam: Dry, Intact Assessment and Plan - Assessment and Plan (Free Text) Assessment: 73F POD#4 s/p open appendectomy with extensive adhesiolysis CT: Abd/pel shows pleural effusion and fluid in the pelvis WBC decreased from yesterday NPO Pain medication out of bed further recs per Dr. Chucho Ayers PGY3
[2018-10-12] MEDS: Enoxaparin 40 mg Syringe SC SCH (09:24)
[2018-10-12] MEDS: Ciprofloxacin 400mg/200ml D5W 400 MG/200 ML BAG IVPB SCH ×2 (09:31→21:25)
--- NOTE | 2018-10-12 09:41 | CP.PCM.PN ---
<LiannaMoisechristopher - Last Filed: 10/12/18 09:38> Subjective - Date & Time of Evaluation Date of Evaluation: 10/12/18 Time of Evaluation: 08:50 - Subjective Subjective: PGY-4 GI Fellow Prog Note Pt lying in bed with nursing at bedside when seen this AM. Reports some shortness of breath and chest discomfort with breathing. Primary team aware and ordering workup. Otherwise, she stilll denies any BMs nor flatus. 5 point ROS negative other than stated above Objective - Vital Signs/Intake and Output Vital Signs (last 24 hours): Temp Pulse Resp BP Pulse Ox 98.2 F 89 21 166/44 H 100 10/12/18 04:00 10/12/18 06:00 10/12/18 06:00 10/12/18 09:25 10/12/18 06:00 Intake and Output: 10/12/18 10/12/18 06:59 18:59 Intake Total 1286 Output Total 500 Balance 786 - Medications Medications: Current Medications Acetaminophen (Tylenol 325mg Tab) 650 mg PO Q6 PRN PRN Reason: Fever >100.4 F Last Admin: 10/09/18 06:37 Dose: 650 mg Dextrose (Dextrose 50% Inj) 0 ml IV STAT PRN; Protocol PRN Reason: Hypoglycemia Protocol Dextrose (Glutose 15) 0 gm PO ONCE PRN; Protocol PRN Reason: Hypoglycemia Protocol Enoxaparin Sodium (Lovenox) 40 mg SC DAILY [facility] Last Admin: 10/12/18 09:24 Dose: 40 mg Furosemide (Lasix) 20 mg IVP DAILY [facility] Last Admin: 10/12/18 09:25 Dose: 20 mg Glucagon (Glucagen Diagnostic Kit) 0 mg IM STAT PRN; Protocol PRN Reason: Hypoglycemia Protocol Hydromorphone HCl (Dilaudid) 0.5 mg IVP Q4H PRN PRN Reason: Pain, moderate (4-7) Last Admin: 10/12/18 08:28 Dose: 0.5 mg Dextrose/Sodium Chloride (Dextrose 5%/0.9% Ns 1000 Ml) 1,000 mls @ 100 mls/hr IV .Q10H [facility] Last Admin: 10/12/18 09:34 Dose: 100 mls/hr Ciprofloxacin (Cipro 400mg/200ml Dsw) 400 mg in 200 mls @ 133 mls/hr IVPB Q12H [facility]; Protocol Last Admin: 10/12/18 09:31 Dose: 133 mls/hr Metronidazole (Flagyl) 500 mg in 100 mls @ 100 mls/hr IVPB Q8H [facility]; Protocol Last Admin: 10/12/18 05:33 Dose: 100 mls/hr Potassium Phosphate 30 mmole/ (Dextrose) 260 mls @ 42.5 mls/hr IVPB ONCE ONE Stop: 10/12/18 13:57 Last Admin: 10/12/18 09:19 Dose: 42.5 mls/hr Insulin Aspart (Novolog) 0 unit SC Q6H [facility]; Protocol Last Admin: 10/12/18 05:34 Dose: Not Given Metoprolol Tartrate (Lopressor) 2.5 mg IVP Q6H [facility] Last Admin: 10/12/18 05:36 Dose: 2.5 mg Ondansetron HCl (Zofran Inj) 4 mg IVP Q4H PRN PRN Reason: Nausea/Vomiting Pantoprazole Sodium (Protonix Inj) 40 mg IVP Q12H [facility] Last Admin: 10/12/18 09:24 Dose: 40 mg Vitamin A (Vitamin A & D Oint Ud Foilpak) 1 ea TOP Q6 PRN PRN Reason: for dry lips Last Admin: 10/08/18 21:43 Dose: 1 ea - Labs Labs: 10/12/18 06:03 10/12/18 06:03 PT 12.0 SECONDS (9.7-12.2) 10/07/18 16:00 INR 1.1 10/07/18 16:00 APTT 28 SECONDS (21-34) 10/07/18 16:00 - Constitutional Appears: In Acute Distress (mild) - Head Exam Head Exam: ATRAUMATIC, NORMAL INSPECTION - Eye Exam Eye Exam: EOMI. absent: Scleral icterus - ENT Exam ENT Exam: Mucous Membranes Dry. absent: Mucous Membranes Moist - Cardiovascular Exam Cardiovascular Exam: Tachycardia, REGULAR RHYTHM - GI/Abdominal Exam GI & Abdominal Exam: Distended (moderately distended and diffusely ttp limiting exam), Soft, Tenderness, Hypoactive Bowel Sounds. absent: Bruit, Firm, Guarding, Rigid, Mass, Pulsatile Mass Assessment and Plan - Assessment and Plan (Free Text) Assessment: 73 yo BF with h/o Tob Abuse, CAD, diverticulitis s/p colon resection presenting with abd pain and black stools. # Abd pain: Suspect related to acute appendicitis seen on CT, POD# 3 from appendectomy and lysis of adhesions 10/08/18. # Melena: Unclear exact cause of melena but on DAPT placing at risk for PUD. Perhaps bleeding R sided colon lesion as had h/o R sided colitis earlier this year w/o f/u CSPY despite being recommended. Also at risk for anastamotic bleed given h/o colonic resection. Hgb stable after PRBC transfusions and no re ports/signs of bleeding. # Acute on Chronic Anemia: Hgb 7.7 from about 9 baseline. Perhaps related melena and upper GI or slow right sided colon source. s/p 3 units PRBCs with good response after admission (2 units), then post op (1 unit) # Splenic lesion: Unclear etiology. Pt denied any weight loss or other red flag symptoms other than black stools prior to admission to suggest possible bleedi ng. # CAD: NSTEMI during this admission. Treated medically at this time. Last clopiodgrel and ASA 10/07 Plan: - CP/SOB workup per primary team - Discuss with Cardiology and Gen Surg regarding possible EGD on 10/14 to evaluate reported melena and anemia --- Discussed briefly with Dr. Logan, pt is mod-high risk given CAD with sig stenosis but will need EGD prior ot cath --- Likely plan on outpatient CSPY - Diet, IVF, bowel regimen and Abx per surgery - Cont PPI IV BID - Clopidogrel and ASA held since at least 10/08 - Will need to hold enoxaparin in PM of 10/13 if EGD - Monitor Hgb Thank you for the consult; will continue to follow. Pt seen and examined with Dr. Betancur; see attestation for further recs/changes. Primo Dsouza, PGY-4 <Titus Betancur - Last Filed: 10/12/18 12:41> Objective - Vital Signs/Intake and Output Vital Signs (last 24 hours): Temp Pulse Resp BP Pulse Ox 98.2 F 107 H 28 H 162/86 H 98 10/12/18 04:00 10/12/18 10:56 10/12/18 10:56 10/12/18 10:56 10/12/18 10:56 Intake and Output: 10/12/18 10/12/18 06:59 18:59 Intake Total 1286 Output Total 500 Balance 786 - Medications Medications: Current Medications Acetaminophen (Tylenol 325mg Tab) 650 mg PO Q6 PRN PRN Reason: Fever >100.4 F Last Admin: 10/09/18 06:37 Dose: 650 mg Dextrose (Dextrose 50% Inj) 0 ml IV STAT PRN; Protocol PRN Reason: Hypoglycemia Protocol Dextrose (Glutose 15) 0 gm PO ONCE PRN; Protocol PRN Reason: Hypoglycemia Protocol Furosemide (Lasix) 20 mg IVP DAILY [facility] Last Admin: 10/12/18 09:25 Dose: 20 mg Glucagon (Glucagen Diagnostic Kit) 0 mg IM STAT PRN; Protocol PRN Reason: Hypoglycemia Protocol Hydromorphone HCl (Dilaudid) 0.5 mg IVP Q4H PRN PRN Reason: Pain, moderate (4-7) Last Admin: 10/12/18 08:28 Dose: 0.5 mg Dextrose/Sodium Chloride (Dextrose 5%/0.9% Ns 1000 Ml) 1,000 mls @ 100 mls/hr IV .Q10H [facility] Last Admin: 10/12/18 09:34 Dose: 100 mls/hr Ciprofloxacin (Cipro 400mg/200ml Dsw) 400 mg in 200 mls @ 133 mls/hr IVPB Q12H [facility]; Protocol Last Admin: 10/12/18 09:31 Dose: 133 mls/hr Metronidazole (Flagyl) 500 mg in 100 mls @ 100 mls/hr IVPB Q8H [facility]; Protocol Last Admin: 10/12/18 05:33 Dose: 100 mls/hr Potassium Phosphate 30 mmole/ (Dextrose) 260 mls @ 42.5 mls/hr IVPB ONCE ONE Stop: 10/12/18 13:57 Last Admin: 10/12/18 09:19 Dose: 42.5 mls/hr Nitroglycerin/Dextrose (Nitroglycerin 50 Mg/250 Ml D5w) 50 mg in 250 mls @ 1.5 mls/hr IV .Q24H [facility]; Protocol Last Admin: 10/12/18 10:56 Dose: 5 mcg/min, 1.5 mls/hr Heparin Sodium/Sodium Chloride (Heparin 89893 Units/250ml 1/2 Normal Saline) 25,000 units in 250 mls @ 7.435 mls/hr IV .Q24H PRN; Protocol PRN Reason: PROTOCOL Last Admin: 10/12/18 12:07 Dose: 12 units/kg/hr, 7.435 mls/hr Insulin Aspart (Novolog) 0 unit SC Q6H [facility]; Protocol Last Admin: 10/12/18 12:32 Dose: Not Given Metoprolol Tartrate (Lopressor) 2.5 mg IVP Q6H [facility] Last Admin: 10/12/18 09:49 Dose: 2.5 mg Ondansetron HCl (Zofran Inj) 4 mg IVP Q4H PRN PRN Reason: Nausea/Vomiting Pantoprazole Sodium (Protonix Inj) 40 mg IVP Q12H [facility] Last Admin: 10/12/18 09:24 Dose: 40 mg Vitamin A (Vitamin A & D Oint Ud Foilpak) 1 ea TOP Q6 PRN PRN Reason: for dry lips Last Admin: 10/08/18 21:43 Dose: 1 ea - Labs Labs: 10/12/18 06:03 10/12/18 06:03 PT 12.0 SECONDS (9.7-12.2) 10/07/18 16:00 INR 1.1 10/07/18 16:00 APTT 28 SECONDS (21-34) 10/07/18 16:00 Attending/Attestation - Attestation I have personally seen and examined this patient.: Yes I have fully participated in the care of the patient.: Yes I have reviewed all pertinent clinical information, including history, physical exam and plan: Yes Notes (Text): 10/12/18 12:37 I have seen and examined patient with GI fellow. No acute events overnight, she is seen resting in bed, remains in critical care unit. Today she is complaining of sharp substernal chest pain with dyspnea. She denies nausea, vomiting, fever/chills. No bowel movements or flatus since appendectomy. Review of vitals from today shows elevated BP. CAD History of partial colon resection Anemia Splenic lesion - NPO - H/H stable without features of overt bleeding noted, continue to monitor - Continue with PPI therapy - Continue with antibiotic therapy - Follow up surgical recommendations - Follow up cardiac recommendations given complaint of ongoing chest pain - Discussed potential EGD evaluation with both cardiology and surgical teams, no gross contraindications though given worsening chest pain will defer procedure for time being and continue with close observation
--- NOTE | 2018-10-12 10:39 | CP.CCUPN ---
<Stephanie Santana - Last Filed: 10/12/18 10:56> CCU Subjective - Physician Review Subjective (Free Text): 10/12/18 10:36 Stephanie Santana PGY1 Progress note for Dr. Mchugh Pt was examined at bedside this morning. Pt reports chest pain upon breathing and feels as if she cannot take in a full breath. She reports improvement in her abdominal pain. She reports passing flatus, but still has not had a bowel movement. Pt denies fever, chills, nausea, vomiting, dysuria. CCU Objective - Vital Signs / Intake & Output Vital Signs (Last 4 hours): Vital Signs BP 10/12/18 09:25 166/44 H Intake and Output (Last 8hrs): Intake & Output 10/11/18 10/12/18 10/12/18 22:59 06:59 14:59 Intake Total 572 900 Output Total 400 300 Balance 172 600 Intake: Intake, IV Amount 572 900 Right Forearm 372 800 Right Hand Y-Port 200 100 Output: Urine 400 300 Urine, Voided 400 300 Other: # Bowel Movements 0 - Physical Exam Head: Positive for: Atraumatic, Normocephalic Pupils: Positive for: PERRL Extroacular Muscles: Positive for: EOMI Conjunctiva: Positive for: Normal Mouth: Positive for: Moist Mucous Membranes Respiratory/Chest: Positive for: Decreased Breath Sounds. Negative for: Respiratory Distress, Accessory Muscle Use, Wheezes, Rales, Rhonchi Cardiovascular: Positive for: Murmurs, Normal S1, S2, Irregular Rhythm Abdomen: Positive for: Other (surgical site in midline of abdomen clean, dry, intact). Negative for: Tenderness, Distention, Normal Bowel Sounds, Peritoneal Signs Upper Extremity: Positive for: Normal Inspection. Negative for: Cyanosis, Edema Lower Extremity: Positive for: Normal Inspection. Negative for: Edema Neurological: Positive for: GCS=15, CN II-XII Intact, Speech Normal Skin: Positive for: Normal Color Psychiatric: Positive for: Alert, Oriented x 3 - Medications Active Medications: Active Medications Generic Name Dose Route Start Last Admin Trade Name Freq PRN Reason Stop Dose Admin Acetaminophen 650 mg 10/09/18 06:14 10/09/18 06:37 Tylenol 325mg Tab PO 650 mg Q6 PRN Administration Fever >100.4 F Dextrose 0 ml 10/07/18 22:01 Dextrose 50% Inj IV STAT PRN Hypoglycemia Protocol Protocol Dextrose 0 gm 10/07/18 22:01 Glutose 15 PO ONCE PRN Hypoglycemia Protocol Protocol Enoxaparin Sodium 60 mg 10/12/18 22:00 Lovenox SC Q12H JOSE ANTONIO Furosemide 20 mg 10/11/18 10:00 10/12/18 09:25 Lasix IVP 20 mg DAILY JOSE ANTONIO Administration Glucagon 0 mg 10/07/18 22:01 Glucagen Diagnostic Kit IM STAT PRN Hypoglycemia Protocol Protocol Hydromorphone HCl 0.5 mg 10/08/18 18:01 10/12/18 08:28 Dilaudid IVP 0.5 mg Q4H PRN Administration Pain, moderate (4-7) Dextrose/Sodium Chloride 1,000 mls @ 100 mls/hr 10/11/18 13:30 10/12/18 09:34 Dextrose 5%/0.9% Ns 1000 Ml IV 100 mls/hr .Q10H JOSE ANTONIO Administration Ciprofloxacin 400 mg in 200 mls @ 133 mls/hr 10/11/18 21:00 10/12/18 09:31 Cipro 400mg/200ml Dsw IVPB 133 mls/hr Q12H JOSE ANTONIO Administration Protocol Metronidazole 500 mg in 100 mls @ 100 mls/hr 10/11/18 22:00 10/12/18 05:33 Flagyl IVPB 100 mls/hr Q8H JOSE ANTONIO Administration Protocol Potassium Phosphate 30 mmole/ 260 mls @ 42.5 mls/hr 10/12/18 07:50 10/12/18 09:19 Dextrose IVPB 10/12/18 13:57 42.5 mls/hr ONCE ONE Administration Insulin Aspart 0 unit 10/09/18 00:00 10/12/18 05:34 Novolog SC Not Given Q6H JOSE ANTONIO Protocol Metoprolol Tartrate 2.5 mg 10/09/18 10:45 10/12/18 09:49 Lopressor IVP 2.5 mg Q6H JOSE ANTONIO Administration Ondansetron HCl 4 mg 10/07/18 22:25 Zofran Inj IVP Q4H PRN Nausea/Vomiting Pantoprazole Sodium 40 mg 10/07/18 22:00 10/12/18 09:24 Protonix Inj IVP 40 mg Q12H JOSE ANTONIO Administration Vitamin A 1 ea 10/08/18 20:00 10/08/18 21:43 Vitamin A & D Oint Ud Foilpak TOP 1 ea Q6 PRN Administration for dry lips - Patient Studies Lab Studies: Microbiology Studies 10/07/18 19:12 Blood Culture - Preliminary Blood NO GROWTH AFTER 4 DAYS 10/07/18 19:04 Blood Culture - Preliminary Blood NO GROWTH AFTER 4 DAYS Lab Studies 10/12/18 10/12/18 10/12/18 Range/Units 06:03 06:03 05:26 WBC 12.0 H (4.8-10.8) K/uL RBC 3.33 L (3.80-5.20) Mil/uL Hgb 10.1 L (11.0-16.0) g/dL Hct 30.1 L (34.0-47.0) % MCV 90.5 (81.0-99.0) fL MCH 30.2 (27.0-31.0) pg MCHC 33.4 (33.0-37.0) g/dL RDW 16.4 H (11.5-14.5) % Plt Count 224 (130-400) K/uL MPV 8.1 (7.2-11.7) fL Neut % (Auto) 82.2 H (50.0-75.0) % Lymph % (Auto) 4.9 L (20.0-40.0) % [place] % (Auto) 10.2 H (0.0-10.0) % Eos % (Auto) 2.4 (0.0-4.0) % Baso % (Auto) 0.3 (0.0-2.0) % Neut # (Auto) 9.9 H (1.8-7.0) K/uL Lymph # (Auto) 0.6 L (1.0-4.3) K/uL [place] # (Auto) 1.2 H (0.0-0.8) K/uL Eos # (Auto) 0.3 (0.0-0.7) K/uL Baso # (Auto) 0.0 (0.0-0.2) K/uL Neutrophils % (Manual) 87 H (50-75) % Lymphocytes % (Manual) 3 L (20-40) % Monocytes % (Manual) 7 (0-10) % Eosinophils % (Manual) 3 (0-4) % Platelet Estimate Normal (NORMAL) Polychromasia Slight Hypochromasia (manual) Slight Anisocytosis (manual) Slight Sodium 140 (132-148) mmol/L Potassium 3.3 L (3.6-5.2) mmol/L Chloride 104 (98-107) mmol/L Carbon Dioxide 25 (22-30) mmol/L Anion Gap 14 (10-20) BUN 14 (7-17) mg/dL Creatinine 0.6 L (0.7-1.2) mg/dL Est GFR ( Amer) > 60 Est GFR (Non-Af Amer) > 60 POC Glucose (mg/dL) 195 H (65-110) mg/dL Random Glucose 214 H (65-105) mg/dL Calcium 8.8 (8.6-10.4) mg/dl Phosphorus 2.1 L (2.5-4.5) mg/dL Magnesium 1.5 L (1.6-2.3) mg/dL Total Bilirubin 0.6 (0.2-1.3) mg/dL AST 28 (14-36) U/L ALT 24 (9-52) U/L Alkaline Phosphatase 70 (38-126) U/L Total Protein 6.1 L (6.3-8.3) g/dL Albumin 3.4 L (3.5-5.0) g/dL Globulin 2.7 (2.2-3.9) gm/dL Albumin/Globulin Ratio 1.2 (1.0-2.1) 10/12/18 10/11/18 10/11/18 Range/Units 00:19 17:22 11:42 WBC (4.8-10.8) K/uL RBC (3.80-5.20) Mil/uL Hgb (11.0-16.0) g/dL Hct (34.0-47.0) % MCV (81.0-99.0) fL MCH (27.0-31.0) pg MCHC (33.0-37.0) g/dL RDW (11.5-14.5) % Plt Count (130-400) K/uL MPV (7.2-11.7) fL Neut % (Auto) (50.0-75.0) % Lymph % (Auto) (20.0-40.0) % [place] % (Auto) (0.0-10.0) % Eos % (Auto) (0.0-4.0) % Baso % (Auto) (0.0-2.0) % Neut # (Auto) (1.8-7.0) K/uL Lymph # (Auto) (1.0-4.3) K/uL [place] # (Auto) (0.0-0.8) K/uL Eos # (Auto) (0.0-0.7) K/uL Baso # (Auto) (0.0-0.2) K/uL Neutrophils % (Manual) (50-75) % Lymphocytes % (Manual) (20-40) % Monocytes % (Manual) (0-10) % Eosinophils % (Manual) (0-4) % Platelet Estimate (NORMAL) Polychromasia Hypochromasia (manual) Anisocytosis (manual) Sodium (132-148) mmol/L Potassium (3.6-5.2) mmol/L Chloride (98-107) mmol/L Carbon Dioxide (22-30) mmol/L Anion Gap (10-20) BUN (7-17) mg/dL Creatinine (0.7-1.2) mg/dL Est GFR ( Amer) Est GFR (Non-Af Amer) POC Glucose (mg/dL) 180 H 157 H 161 H (65-110) mg/dL Random Glucose (65-105) mg/dL Calcium (8.6-10.4) mg/dl Phosphorus (2.5-4.5) mg/dL Magnesium (1.6-2.3) mg/dL Total Bilirubin (0.2-1.3) mg/dL AST (14-36) U/L ALT (9-52) U/L Alkaline Phosphatase (38-126) U/L Total Protein (6.3-8.3) g/dL Albumin (3.5-5.0) g/dL Globulin (2.2-3.9) gm/dL Albumin/Globulin Ratio (1.0-2.1) Laboratory Results - last 24 hr 10/11/18 10/11/18 10/12/18 11:42 17:22 00:19 WBC RBC Hgb Hct MCV MCH MCHC RDW Plt Count MPV Neut % (Auto) Lymph % (Auto) [place] % (Auto) Eos % (Auto) Baso % (Auto) Neut # (Auto) Lymph # (Auto) [place] # (Auto) Eos # (Auto) Baso # (Auto) Neutrophils % (Manual) Lymphocytes % (Manual) Monocytes % (Manual) Eosinophils % (Manual) Platelet Estimate Polychromasia Hypochromasia (manual) Anisocytosis (manual) Sodium Potassium Chloride Carbon Dioxide Anion Gap BUN Creatinine Est GFR ( Amer) Est GFR (Non-Af Amer) POC Glucose (mg/dL) 161 H 157 H 180 H Random Glucose Calcium Phosphorus Magnesium Total Bilirubin AST ALT Alkaline Phosphatase Total Protein Albumin Globulin Albumin/Globulin Ratio 10/12/18 10/12/18 10/12/18 05:26 06:03 06:03 WBC 12.0 H RBC 3.33 L Hgb 10.1 L Hct 30.1 L MCV 90.5 MCH 30.2 MCHC 33.4 RDW 16.4 H Plt Count 224 MPV 8.1 Neut % (Auto) 82.2 H Lymph % (Auto) 4.9 L [place] % (Auto) 10.2 H Eos % (Auto) 2.4 Baso % (Auto) 0.3 Neut # (Auto) 9.9 H Lymph # (Auto) 0.6 L [place] # (Auto) 1.2 H Eos # (Auto) 0.3 Baso # (Auto) 0.0 Neutrophils % (Manual) 87 H Lymphocytes % (Manual) 3 L Monocytes % (Manual) 7 Eosinophils % (Manual) 3 Platelet Estimate Normal Polychromasia Slight Hypochromasia (manual) Slight Anisocytosis (manual) Slight Sodium 140 Potassium 3.3 L Chloride 104 Carbon Dioxide 25 Anion Gap 14 BUN 14 Creatinine 0.6 L Est GFR ( Amer) > 60 Est GFR (Non-Af Amer) > 60 POC Glucose (mg/dL) 195 H Random Glucose 214 H Calcium 8.8 Phosphorus 2.1 L Magnesium 1.5 L Total Bilirubin 0.6 AST 28 ALT 24 Alkaline Phosphatase 70 Total Protein 6.1 L Albumin 3.4 L Globulin 2.7 Albumin/Globulin Ratio 1.2 EKG/Cardiology Studies: Cardiology / EKG Studies 10/12/18 08:55 EKG [ELECTROCARDIOGRAM] Routine Comment: Mode Of Transportation: Reason For Exam: Chest Pain Fingerstick Blood Sugar Results: 195 Review of Systems - Review of Systems Review of Systems: as per HPI Critical Care Progress Note - Nutrition Nutrition: Nutrition Category Date Time Status NPO Diet [DIET] Diets 10/09/18 Breakfast Active Assessment/Plan - Assessment and Plan (Free Text) Assessment: 73yo F with PMH DM, HTN, HLD, CAD, COPD, asthma, arthritis, anxiety, osteoporosis presented to ED with black stool and abdominal pain, found to have acute appendicitis. S/p open appendectomy 10/08 w/ NSTEMI, currently being monitored in ICU. Plan: Neuro - AAOx3 - no focal deficits Cardiovascular - h/o CAD, HTN, HLD - NSTEMI 10/08 - pt with chest pain today - trop elevated 0.88 today - CXR 10/11: pulmonary venous congestion, CHF improved from previous CXR - ECHO 08/19: normal systolic LV function, normal EF. moderate and AR - nitro drip - morphine 2mg IVP stat - lopressor 2.5mg IVP q6h - lasix 20mg IV daily - lovenox 60mg SC BID - maintain normotension - conservative medical management, no full anticoagulation at this time as per cardio - Cardio consulted, Dr. Desmond abdi appreciated Pulm - h/o COPD, asthma - CXR 10/11: pulmonary venous congestion, CHF improved from previous CXR - lasix 20mg IV daily - NC - incentive spirometry - maintain SpO2 >92% GI - CT abd/pel 10/07: acute appendicitis, extending from pelvic cecum to retrocecal location in RLQ. - s/p open appendectomy and lysis of adhesions 10/08 - no BM yet - zofran 4mg IVP q4h PRN - protonix 40mg IVP q12h - dilaudid 0.5mg q4h PRN - tylenol 650mg q6h PRN - NPO, advance diet as per Sx - Gen Sx consulted, Dr. Chucho abdi appreciated - GI consulted, Dr. Pipe abdi appreciated Heme - H/H 10.1/30.1 - s/p 3u PRBC - lovenox 60mg SC BID Endo - h/o DM - low dose novolog q6h - accuchecks q6h - hypoglycemia protocol - maintain euglycemic ID - pt afebrile - leukocytosis - BCx neg x5 - cipro 400mg IV q12h - flagyl 500mg IV q8h PPX: GI: protonix 40mg IVP q12h DVT: therapeutic lovenox NPO Pt seen and case discussed with Dr. Mchugh <Navi Mchugh - Last Filed: 10/12/18 18:07> CCU Subjective - Physician Review Critical Care Time Spent (in minutes): 40 CCU Objective - Vital Signs / Intake & Output Vital Signs (Last 4 hours): Vital Signs Temp Pulse Resp BP Pulse Ox 10/12/18 16:00 98.4 F 103 H 27 H 100 10/12/18 14:54 105 H 26 H 149/63 93 L Intake and Output (Last 8hrs): Intake & Output 10/12/18 10/12/18 10/12/18 06:59 14:59 22:59 Intake Total 900 6 Output Total 300 Balance 600 6 Intake: IV 6 Intake, IV Amount 900 Right Forearm 800 Right Hand Y-Port 100 Output: Urine 300 Urine, Voided 300 Other: # Bowel Movements 0 - Medications Active Medications: Active Medications Generic Name Dose Route Start Last Admin Trade Name Freq PRN Reason Stop Dose Admin Acetaminophen 650 mg 10/09/18 06:14 10/09/18 06:37 Tylenol 325mg Tab PO 650 mg Q6 PRN Administration Fever >100.4 F Dextrose 0 ml 10/07/18 22:01 Dextrose 50% Inj IV STAT PRN Hypoglycemia Protocol Protocol Dextrose 0 gm 10/07/18 22:01 Glutose 15 PO ONCE PRN Hypoglycemia Protocol Protocol Furosemide 20 mg 10/11/18 10:00 10/12/18 09:25 Lasix IVP 20 mg DAILY JOSE ANTONIO Administration Glucagon 0 mg 10/07/18 22:01 Glucagen Diagnostic Kit IM STAT PRN Hypoglycemia Protocol Protocol Hydromorphone HCl 0.5 mg 10/08/18 18:01 10/12/18 14:11 Dilaudid IVP 0.5 mg Q4H PRN Administration Pain, moderate (4-7) Dextrose/Sodium Chloride 1,000 mls @ 100 mls/hr 10/11/18 13:30 10/12/18 09:34 Dextrose 5%/0.9% Ns 1000 Ml IV 100 mls/hr .Q10H JOSE ANTONIO Administration Ciprofloxacin 400 mg in 200 mls @ 133 mls/hr 10/11/18 21:00 10/12/18 09:31 Cipro 400mg/200ml Dsw IVPB 133 mls/hr Q12H JOSE ANTONIO Administration Protocol Metronidazole 500 mg in 100 mls @ 100 mls/hr 10/11/18 22:00 10/12/18 14:14 Flagyl IVPB 100 mls/hr Q8H JOSE ANTONIO Administration Protocol Nitroglycerin/Dextrose 50 mg in 250 mls @ 1.5 mls/hr 10/12/18 11:00 10/12/18 14:14 Nitroglycerin 50 Mg/250 Ml D5w IV 10 mcg/min .Q24H JOSE ANTONIO 3 mls/hr Titration Protocol 5 MCG/MIN Heparin Sodium/Sodium Chloride 25,000 units in 250 mls @ 7.435 mls/hr 10/12/18 12:00 10/12/18 12:07 Heparin 46102 Units/250ml 1/2 Normal Saline IV 12 units/kg/hr .Q24H PRN 7.435 mls/hr PROTOCOL Administration Protocol 12 UNITS/KG/HR Insulin Aspart 0 unit 10/09/18 00:00 10/12/18 12:32 Novolog SC Not Given Q6H [facility] Protocol Metoprolol Tartrate 2.5 mg 10/09/18 10:45 10/12/18 17:46 Lopressor IVP 2.5 mg Q6H JOSE ANTONIO Administration Ondansetron HCl 4 mg 10/07/18 22:25 Zofran Inj IVP Q4H PRN Nausea/Vomiting Pantoprazole Sodium 40 mg 10/07/18 22:00 10/12/18 09:24 Protonix Inj IVP 40 mg Q12H JOSE ANTONIO Administration Vitamin A 1 ea 10/08/18 20:00 10/08/18 21:43 Vitamin A & D Oint Ud Foilpak TOP 1 ea Q6 PRN Administration for dry lips - Patient Studies Lab Studies: Microbiology Studies 10/07/18 19:12 Blood Culture - Preliminary Blood NO GROWTH AFTER 4 DAYS 10/07/18 19:04 Blood Culture - Preliminary Blood NO GROWTH AFTER 4 DAYS Lab Studies 10/12/18 10/12/18 10/12/18 Range/Units 14:32 12:38 12:00 WBC (4.8-10.8) K/uL RBC (3.80-5.20) Mil/uL Hgb (11.0-16.0) g/dL Hct (34.0-47.0) % MCV (81.0-99.0) fL MCH (27.0-31.0) pg MCHC (33.0-37.0) g/dL RDW (11.5-14.5) % Plt Count (130-400) K/uL MPV (7.2-11.7) fL Neut % (Auto) (50.0-75.0) % Lymph % (Auto) (20.0-40.0) % [place] % (Auto) (0.0-10.0) % Eos % (Auto) (0.0-4.0) % Baso % (Auto) (0.0-2.0) % Neut # (Auto) (1.8-7.0) K/uL Lymph # (Auto) (1.0-4.3) K/uL [place] # (Auto) (0.0-0.8) K/uL Eos # (Auto) (0.0-0.7) K/uL Baso # (Auto) (0.0-0.2) K/uL Neutrophils % (Manual) (50-75) % Lymphocytes % (Manual) (20-40) % Monocytes % (Manual) (0-10) % Eosinophils % (Manual) (0-4) % Platelet Estimate (NORMAL) Polychromasia Hypochromasia (manual) Anisocytosis (manual) APTT 31 (21-34) SECONDS Puncture Site Lb pCO2 35 (35-45) mm/Hg pO2 76 L (80-100) mm/Hg HCO3 25.0 (21-28) mmol/L ABG pH 7.44 (7.35-7.45) ABG Total CO2 24.9 (22-28) mmol/L ABG O2 Saturation 97.6 (95-98) % ABG Base Excess 0.1 (-2.0-3.0) mmol/L Rodo Test Na ABG Potassium 3.0 L (3.6-5.2) mmol/L A-a O2 Difference 94.0 mm/Hg Respiratory Index 1.2 Glucose 307 H (65-105) mg/dl Lactate 1.1 (0.7-2.1) mmol/L FiO2 30.0 % Inspiratory BiPAP 5 Expiratory BiPAP 12 Sodium 139.0 (132-148) mmol/L Potassium (3.6-5.2) mmol/L Chloride 107.0 (98-107) mmol/L Carbon Dioxide (22-30) mmol/L Anion Gap (10-20) BUN (7-17) mg/dL Creatinine (0.7-1.2) mg/dL Est GFR ( Amer) Est GFR (Non-Af Amer) POC Glucose (mg/dL) 265 H (65-110) mg/dL Random Glucose (65-105) mg/dL Calcium (8.6-10.4) mg/dl Phosphorus (2.5-4.5) mg/dL Magnesium (1.6-2.3) mg/dL Total Bilirubin (0.2-1.3) mg/dL AST (14-36) U/L ALT (9-52) U/L Alkaline Phosphatase (38-126) U/L Troponin I (0.00-0.120) ng/mL Total Protein (6.3-8.3) g/dL Albumin (3.5-5.0) g/dL Globulin (2.2-3.9) gm/dL Albumin/Globulin Ratio (1.0-2.1) Arterial Blood Potassium 3.0 L (3.6-5.2) mmol/L 10/12/18 10/12/18 10/12/18 Range/Units 09:19 06:03 06:03 WBC 12.0 H (4.8-10.8) K/uL RBC 3.33 L (3.80-5.20) Mil/uL Hgb 10.1 L (11.0-16.0) g/dL Hct 30.1 L (34.0-47.0) % MCV 90.5 (81.0-99.0) fL MCH 30.2 (27.0-31.0) pg MCHC 33.4 (33.0-37.0) g/dL RDW 16.4 H (11.5-14.5) % Plt Count 224 (130-400) K/uL MPV 8.1 (7.2-11.7) fL Neut % (Auto) 82.2 H (50.0-75.0) % Lymph % (Auto) 4.9 L (20.0-40.0) % [place] % (Auto) 10.2 H (0.0-10.0) % Eos % (Auto) 2.4 (0.0-4.0) % Baso % (Auto) 0.3 (0.0-2.0) % Neut # (Auto) 9.9 H (1.8-7.0) K/uL Lymph # (Auto) 0.6 L (1.0-4.3) K/uL [place] # (Auto) 1.2 H (0.0-0.8) K/uL Eos # (Auto) 0.3 (0.0-0.7) K/uL Baso # (Auto) 0.0 (0.0-0.2) K/uL Neutrophils % (Manual) 87 H (50-75) % Lymphocytes % (Manual) 3 L (20-40) % Monocytes % (Manual) 7 (0-10) % Eosinophils % (Manual) 3 (0-4) % Platelet Estimate Normal (NORMAL) Polychromasia Slight Hypochromasia (manual) Slight Anisocytosis (manual) Slight APTT (21-34) SECONDS Puncture Site pCO2 (35-45) mm/Hg pO2 (80-100) mm/Hg HCO3 (21-28) mmol/L ABG pH (7.35-7.45) ABG Total CO2 (22-28) mmol/L ABG O2 Saturation (95-98) % ABG Base Excess (-2.0-3.0) mmol/L Rodo Test ABG Potassium (3.6-5.2) mmol/L A-a O2 Difference mm/Hg Respiratory Index Glucose (65-105) mg/dl Lactate (0.7-2.1) mmol/L FiO2 % Inspiratory BiPAP Expiratory BiPAP Sodium 140 (132-148) mmol/L Potassium 3.3 L (3.6-5.2) mmol/L Chloride 104 (98-107) mmol/L Carbon Dioxide 25 (22-30) mmol/L Anion Gap 14 (10-20) BUN 14 (7-17) mg/dL Creatinine 0.6 L (0.7-1.2) mg/dL Est GFR ( Amer) > 60 Est GFR (Non-Af Amer) > 60 POC Glucose (mg/dL) (65-110) mg/dL Random Glucose 214 H (65-105) mg/dL Calcium 8.8 (8.6-10.4) mg/dl Phosphorus 2.1 L (2.5-4.5) mg/dL Magnesium 1.5 L (1.6-2.3) mg/dL Total Bilirubin 0.6 (0.2-1.3) mg/dL AST 28 (14-36) U/L ALT 24 (9-52) U/L Alkaline Phosphatase 70 (38-126) U/L Troponin I 0.8880 H* (0.00-0.120) ng/mL Total Protein 6.1 L (6.3-8.3) g/dL Albumin 3.4 L (3.5-5.0) g/dL Globulin 2.7 (2.2-3.9) gm/dL Albumin/Globulin Ratio 1.2 (1.0-2.1) Arterial Blood Potassium (3.6-5.2) mmol/L 10/12/18 10/12/18 10/11/18 Range/Units 05:26 00:19 17:22 WBC (4.8-10.8) K/uL RBC (3.80-5.20) Mil/uL Hgb (11.0-16.0) g/dL Hct (34.0-47.0) % MCV (81.0-99.0) fL MCH (27.0-31.0) pg MCHC (33.0-37.0) g/dL RDW (11.5-14.5) % Plt Count (130-400) K/uL MPV (7.2-11.7) fL Neut % (Auto) (50.0-75.0) % Lymph % (Auto) (20.0-40.0) % [place] % (Auto) (0.0-10.0) % Eos % (Auto) (0.0-4.0) % Baso % (Auto) (0.0-2.0) % Neut # (Auto) (1.8-7.0) K/uL Lymph # (Auto) (1.0-4.3) K/uL [place] # (Auto) (0.0-0.8) K/uL Eos # (Auto) (0.0-0.7) K/uL Baso # (Auto) (0.0-0.2) K/uL Neutrophils % (Manual) (50-75) % Lymphocytes % (Manual) (20-40) % Monocytes % (Manual) (0-10) % Eosinophils % (Manual) (0-4) % Platelet Estimate (NORMAL) Polychromasia Hypochromasia (manual) Anisocytosis (manual) APTT (21-34) SECONDS Puncture Site pCO2 (35-45) mm/Hg pO2 (80-100) mm/Hg HCO3 (21-28) mmol/L ABG pH (7.35-7.45) ABG Total CO2 (22-28) mmol/L ABG O2 Saturation (95-98) % ABG Base Excess (-2.0-3.0) mmol/L Rodo Test ABG Potassium (3.6-5.2) mmol/L A-a O2 Difference mm/Hg Respiratory Index Glucose (65-105) mg/dl Lactate (0.7-2.1) mmol/L FiO2 % Inspiratory BiPAP Expiratory BiPAP Sodium (132-148) mmol/L Potassium (3.6-5.2) mmol/L Chloride (98-107) mmol/L Carbon Dioxide (22-30) mmol/L Anion Gap (10-20) BUN (7-17) mg/dL Creatinine (0.7-1.2) mg/dL Est GFR ( Amer) Est GFR (Non-Af Amer) POC Glucose (mg/dL) 195 H 180 H 157 H (65-110) mg/dL Random Glucose (65-105) mg/dL Calcium (8.6-10.4) mg/dl Phosphorus (2.5-4.5) mg/dL Magnesium (1.6-2.3) mg/dL Total Bilirubin (0.2-1.3) mg/dL AST (14-36) U/L ALT (9-52) U/L Alkaline Phosphatase (38-126) U/L Troponin I (0.00-0.120) ng/mL Total Protein (6.3-8.3) g/dL Albumin (3.5-5.0) g/dL Globulin (2.2-3.9) gm/dL Albumin/Globulin Ratio (1.0-2.1) Arterial Blood Potassium (3.6-5.2) mmol/L Laboratory Results - last 24 hr 10/11/18 10/12/18 10/12/18 17:22 00:19 05:26 WBC RBC Hgb Hct MCV MCH MCHC RDW Plt Count MPV Neut % (Auto) Lymph % (Auto) [place] % (Auto) Eos % (Auto) Baso % (Auto) Neut # (Auto) Lymph # (Auto) [place] # (Auto) Eos # (Auto) Baso # (Auto) Neutrophils % (Manual) Lymphocytes % (Manual) Monocytes % (Manual) Eosinophils % (Manual) Platelet Estimate Polychromasia Hypochromasia (manual) Anisocytosis (manual) APTT Puncture Site pCO2 pO2 HCO3 ABG pH ABG Total CO2 ABG O2 Saturation ABG Base Excess Rodo Test ABG Potassium A-a O2 Difference Respiratory Index Glucose Lactate FiO2 Inspiratory BiPAP Expiratory BiPAP Sodium Potassium Chloride Carbon Dioxide Anion Gap BUN Creatinine Est GFR ( Amer) Est GFR (Non-Af Amer) POC Glucose (mg/dL) 157 H 180 H 195 H Random Glucose Calcium Phosphorus Magnesium Total Bilirubin AST ALT Alkaline Phosphatase Troponin I Total Protein Albumin Globulin Albumin/Globulin Ratio Arterial Blood Potassium 10/12/18 10/12/18 10/12/18 06:03 06:03 09:19 WBC 12.0 H RBC 3.33 L Hgb 10.1 L Hct 30.1 L MCV 90.5 MCH 30.2 MCHC 33.4 RDW 16.4 H Plt Count 224 MPV 8.1 Neut % (Auto) 82.2 H Lymph % (Auto) 4.9 L [place] % (Auto) 10.2 H Eos % (Auto) 2.4 Baso % (Auto) 0.3 Neut # (Auto) 9.9 H Lymph # (Auto) 0.6 L [place] # (Auto) 1.2 H Eos # (Auto) 0.3 Baso # (Auto) 0.0 Neutrophils % (Manual) 87 H Lymphocytes % (Manual) 3 L Monocytes % (Manual) 7 Eosinophils % (Manual) 3 Platelet Estimate Normal Polychromasia Slight Hypochromasia (manual) Slight Anisocytosis (manual) Slight APTT Puncture Site pCO2 pO2 HCO3 ABG pH ABG Total CO2 ABG O2 Saturation ABG Base Excess Rodo Test ABG Potassium A-a O2 Difference Respiratory Index Glucose Lactate FiO2 Inspiratory BiPAP Expiratory BiPAP Sodium 140 Potassium 3.3 L Chloride 104 Carbon Dioxide 25 Anion Gap 14 BUN 14 Creatinine 0.6 L Est GFR ( Amer) > 60 Est GFR (Non-Af Amer) > 60 POC Glucose (mg/dL) Random Glucose 214 H Calcium 8.8 Phosphorus 2.1 L Magnesium 1.5 L Total Bilirubin 0.6 AST 28 ALT 24 Alkaline Phosphatase 70 Troponin I 0.8880 H* Total Protein 6.1 L Albumin 3.4 L Globulin 2.7 Albumin/Globulin Ratio 1.2 Arterial Blood Potassium 10/12/18 10/12/18 10/12/18 12:00 12:38 14:32 WBC RBC Hgb Hct MCV MCH MCHC RDW Plt Count MPV Neut % (Auto) Lymph % (Auto) [place] % (Auto) Eos % (Auto) Baso % (Auto) Neut # (Auto) Lymph # (Auto) [place] # (Auto) Eos # (Auto) Baso # (Auto) Neutrophils % (Manual) Lymphocytes % (Manual) Monocytes % (Manual) Eosinophils % (Manual) Platelet Estimate Polychromasia Hypochromasia (manual) Anisocytosis (manual) APTT 31 Puncture Site Lb pCO2 35 pO2 76 L HCO3 25.0 ABG pH 7.44 ABG Total CO2 24.9 ABG O2 Saturation 97.6 ABG Base Excess 0.1 Rodo Test Na ABG Potassium 3.0 L A-a O2 Difference 94.0 Respiratory Index 1.2 Glucose 307 H Lactate 1.1 FiO2 30.0 Inspiratory BiPAP 5 Expiratory BiPAP 12 Sodium 139.0 Potassium Chloride 107.0 Carbon Dioxide Anion Gap BUN Creatinine Est GFR ( Amer) Est GFR (Non-Af Amer) POC Glucose (mg/dL) 265 H Random Glucose Calcium Phosphorus Magnesium Total Bilirubin AST ALT Alkaline Phosphatase Troponin I Total Protein Albumin Globulin Albumin/Globulin Ratio Arterial Blood Potassium 3.0 L Radiology Impressions: Radiology Impressions Chest CT 10/12/18 14:12 IMPRESSION: No evidence of acute central pulmonary embolus. Small to medium size right-sided effusion and mild right basilar atelectasis. Small left-sided effusion and minor left basilar atelectasis. Centrilobular/panlobular emphysematous changes upper lobe predominance right more severely affected than the left. There is also a large right upper lobe bulla. EKG/Cardiology Studies: Cardiology / EKG Studies 10/12/18 08:55 EKG [ELECTROCARDIOGRAM] Routine Comment: Mode Of Transportation: Reason For Exam: Chest Pain 10/12/18 14:12 ELECTROCARDIOGRAM Stat Comment: Mode Of Transportation: Reason For Exam: chest pain Critical Care Progress Note - Nutrition Nutrition: Nutrition Category Date Time Status NPO Diet [DIET] Diets 10/09/18 Breakfast Active Attending/Attestation - Attestation I have personally seen and examined this patient.: Yes I have fully participated in the care of the patient.: Yes I have reviewed all pertinent clinical information: Yes Notes (Text): 10/12/18 18:04 Patient seen and examinedin the intensive care unit. 73yo F with PMH DM, HTN, HLD, CAD, COPD, asthma, arthritis, anxiety, osteoporosis presented to ED with black stool and abdominal pain, found to have acute appendicitis. S/p open appendectomy 10/08 w/ NSTEMI, currently being monitored in ICU Started on heparin drip, Tridil for elevated troponin and chest pain BiPAPforshortnessofbreath CT angio was negative for pulmonary embolism
[2018-10-12] MEDS ORDERED: Nitroglycerin 50mg in D5W 50 MG/250 ML BOTTLE IV SCH (11:00)
[2018-10-12] MEDS: Heparin25000 units/250ml 1/2NS 25,000 UNITS/250 ML BAG IV PRN (12:07)
[2018-10-12 14:35] LABS: ARTERIAL BLOOD GAS O2 SAT 97.6 % (95-98); ARTERIAL BLOOD GAS PCO2 35 mm/Hg (35-45); ARTERIAL BLOOD GAS PH 7.44 (7.35-7.45); ARTERIAL BLOOD GAS PO2 76 mm/Hg (80-100); ARTERIAL BLOOD GAS TCO2 24.9 mmol/L (22-28)
[2018-10-12] MEDS ORDERED: Iodixanol 320 mg/ml 150 ml Bottle IV ONE (15:10)
--- NOTE | 2018-10-12 15:13 | RAD ---
Date of service: 10/12/2018 HISTORY: shortness of breath, NSTEMI COMPARISON: 10/11/2018 FINDINGS: LUNGS: Current lung volumes more shallow than before. No interval consolidation appreciated. The bilateral hazy opacities over each lung right mid lung and left lung base are probably coalescent areas of pulmonary edema. Pulmonary venous congestion PLEURA: Similar small left pleural effusion. No pneumothorax seen. CARDIOVASCULAR: There is presence of aortic atherosclerotic calcification on x-ray. Mild cardiomegaly-similar. Pulmonary venous congestion present and increased since prior exam. OSSEOUS STRUCTURES: No significant abnormalities. VISUALIZED UPPER ABDOMEN: Normal. OTHER FINDINGS: None. IMPRESSION: Cardiomegaly with interval increased pulmonary venous congestion -as detailed above. Other findings as above.
--- NOTE | 2018-10-12 16:50 | CT ---
Date of service: 10/12/2018 PROCEDURE: CT Chest with contrast (Pulmonary Angiogram) HISTORY: NSTEMI, shortness of breath COMPARISON: Comparison made with: TECHNIQUE: Axial computed tomography images were obtained of the chest in the pulmonary arterial phase of enhancement. Coronal and sagittal reformatted images were created and reviewed. Intravenous contrast dose: Radiation dose: Total exam DLP = 573.77 mGy-cm. This CT exam was performed using one or more of the following dose reduction techniques: Automated exposure control, adjustment of the mA and/or kV according to patient size, and/or use of iterative reconstruction technique. FINDINGS: PULMONARY ARTERIES: Visualized portions of the pulmonary trunk, right and left main, lobar, segmental and subsegmental branches of the pulmonary arteries are well opacified with no definitive filling defects seen to suggest acute central pulmonary embolus. Pulmonary trunk measures approximately 2.8 cm. AORTA: Ascending thoracic aorta measures approximately 3.4 cm and descending thoracic aorta measures approximately 2.56 cm. Mild aortic atherosclerotic calcification or mural plaque present. LUNGS: There is a small to medium size right-sided effusion the mild right basilar atelectasis.. Some small left-sided effusion with minor left basilar atelectasis... Centrilobular-panlobular emphysematous changes upper lobe predominance right side more severely affected than the left.. There is a large of bulla right medial lung apex PLEURAL SPACES: As above. No evidence of pneumothorax HEART: Heart is of mildly enlarged.. There is a small amount of fluid seen in the cleft between the ascending thoracic aorta and pulmonary trunk and apparently in the superior pericardial recess as well. LYMPH NODES: Few small nonspecific mediastinal lymph nodes, the largest in the prevascular space measuring 16 mm x 5.9 mm. No significant hilar adenopathy.. BONES, CHEST WALL: Unremarkable. No fracture or destructive lesion OTHER FINDINGS: There is a small amount of perihepatic ascites.. There also appears to be a small amount of fluid in the left para renal space.. Previously noted large splenic lesion on within the anterior margin of the spleen likely associated with 2 small calcifications is less well delineated on this exam as compared to prior CT scan abdomen pelvis. Redemonstrated is hyperdense material within the gallbladder lumen likely possibly representing vicarious excretion of contrast material from prior CT scan of the abdomen and pelvis 10/11/2018 IMPRESSION: No evidence of acute central pulmonary embolus. Small to medium size right-sided effusion and mild right basilar atelectasis. Small left-sided effusion and minor left basilar atelectasis. Centrilobular/panlobular emphysematous changes upper lobe predominance right more severely affected than the left. There is also a large right upper lobe bulla.
--- NOTE | 2018-10-12 18:55 | CARD ---
APPROVED REPORT Date of service: 10/08/2018 EKG Measurement Heart [id number] <Conclusion> Normal sinus rhythm Septal infarct, age undetermined Abnormal ECG
[2018-10-12] MEDS ORDERED: Enoxaparin 60 mg Syringe SC SCH (22:00)
--- NOTE | 2018-10-13 01:05 | PN ---
DATE: 10/12/2018 SUBJECTIVE: The patient is seen today, 10/12/2018. She is still in Intensive Care Unit, did not pass gas postoperative day #4. The patient also troponin increased and she was complaining of chest pain. PHYSICAL EXAMINATION: VITAL SIGNS: Blood pressure 126/63, temperature 98.1, respiratory rate 18, and pulse 99. HEENT: Pupils equal and reactive to light. Normal-appearing mucosa of the conjunctivae, oropharynx, and nasal membrane mucosa. NECK: Supple. No JVD. No carotid bruit. No lymph node. No thyromegaly. CHEST AND LUNGS: Bilateral symmetrical expansion. Good air exchange. No rales, no rhonchi. CARDIOVASCULAR SYSTEM: PMI not localized. S1, S2. No additional sounds. ABDOMEN: Distended abdomen with decreased bowel sounds. No organomegaly. EXTREMITIES: No cyanosis, no clubbing, no edema. LOG CUTTER: Alert, awake, and oriented x2. No neurological deficit could be appreciated. LABORATORY DATA: Again, blood work today showed troponin to be increased to 0.88 with low potassium, magnesium, and phosphorus. ASSESSMENT: Demand cardiac ischemia, status post appendectomy and lysis of abdominal adhesions. PLAN: I discussed with Dr. Rankin. We will advance diet as tolerated when the patient starts to move her bowel, supplement electrolytes. Kd Ledesma MD
[2018-10-13] MEDS: Metoprolol 1 mg/ml Inj IVP SCH ×2 (05:00→17:24)
[2018-10-13] MEDS: HYDROmorphone 0.5 mg/0.5 ml ISec IVP PRN ×4 (05:01→19:45)
[2018-10-13] MEDS: metroNIDAZOLE IV 500 mg/100 ml 500 MG/100 ML BAG IVPB SCH ×3 (05:41→22:30)
[2018-10-13] MEDS: Dextrose 5%/0.9% NS 1,000 ML IV SCH (05:42)
[2018-10-13 05:47] LABS: BASO % 0.3 % (0.0-2.0); EOS # 0.2 K/uL (0.0-0.7); EOS % 1.4 % (0.0-4.0); HEMOGLOBIN 9.7 g/dL (11.0-16.0); LYMPH # 0.7 K/uL (1.0-4.3); LYMPH % 5.3 % (20.0-40.0); MEAN CELL VOLUME 89.8 fL (81.0-99.0); MEAN CORPUSCULAR HEMOGLOBIN 30.3 pg (27.0-31.0); MEAN CORPUSCULAR HGB CONC 33.7 g/dL (33.0-37.0); MEAN PLATELET VOLUME 8.2 fL (7.2-11.7); MONO # 1.7 K/uL (0.0-0.8); MONO % 12.8 % (0.0-10.0); NEUT # 10.4 K/uL (1.8-7.0); NEUT % 80.2 % (50.0-75.0); PLATELET COUNT 237 K/uL (130-400); RBC 3.19 Mil/uL (3.80-5.20); RED CELL DISTRIBUTION WIDTH 16.4 % (11.5-14.5); WHITE BLOOD COUNT 12.9 K/uL (4.8-10.8)
[2018-10-13] MEDS: (Novolog) Insulin Aspart, Recombinant 100 u/ml 10 ml vial SC SCH ×4 (05:58→17:50)
--- NOTE | 2018-10-13 06:16 | CP.PCM.PN ---
Subjective - Date & Time of Evaluation Date of Evaluation: 10/12/18 Time of Evaluation: 15:05 - Subjective Subjective: Patient had episodes of chest pain this morning EKG shows no acute changes Trop 0.8 Due to GIB risk of bleeding with full anticoagulation Heparin IV started. Monitor H and H Tridil drip/B blockers Resume ASA 81 daily when possible Not a candidate for CABG or PCI at this time Will monitor CTA negative for PE Objective - Vital Signs/Intake and Output Vital Signs (last 24 hours): Temp Pulse Resp BP Pulse Ox 97.8 F 101 H 23 133/67 90 L 10/13/18 04:00 10/13/18 05:31 10/13/18 05:00 10/13/18 05:31 10/13/18 05:31 Intake and Output: 10/12/18 10/13/18 18:59 06:59 Intake Total 1555.7 1410.8 Output Total 1100 300 Balance 455.7 1110.8 - Medications Medications: Current Medications Acetaminophen (Tylenol 325mg Tab) 650 mg PO Q6 PRN PRN Reason: Fever >100.4 F Last Admin: 10/09/18 06:37 Dose: 650 mg Dextrose (Dextrose 50% Inj) 0 ml IV STAT PRN; Protocol PRN Reason: Hypoglycemia Protocol Dextrose (Glutose 15) 0 gm PO ONCE PRN; Protocol PRN Reason: Hypoglycemia Protocol Furosemide (Lasix) 20 mg IVP DAILY [facility] Last Admin: 10/12/18 09:25 Dose: 20 mg Glucagon (Glucagen Diagnostic Kit) 0 mg IM STAT PRN; Protocol PRN Reason: Hypoglycemia Protocol Hydromorphone HCl (Dilaudid) 0.5 mg IVP Q4H PRN PRN Reason: Pain, moderate (4-7) Last Admin: 10/13/18 05:01 Dose: 0.5 mg Dextrose/Sodium Chloride (Dextrose 5%/0.9% Ns 1000 Ml) 1,000 mls @ 100 mls/hr IV .Q10H [facility] ANTONIO Last Admin: 10/13/18 05:42 Dose: 100 mls/hr Ciprofloxacin (Cipro 400mg/200ml Dsw) 400 mg in 200 mls @ 133 mls/hr IVPB Q12H JOSE ANTONIO; Protocol Last Admin: 10/12/18 21:25 Dose: 133 mls/hr Metronidazole (Flagyl) 500 mg in 100 mls @ 100 mls/hr IVPB Q8H [facility] ANTONIO; Protocol Last Admin: 10/13/18 05:41 Dose: 100 mls/hr Nitroglycerin/Dextrose (Nitroglycerin 50 Mg/250 Ml D5w) 50 mg in 250 mls @ 1.5 mls/hr IV .Q24H JOSE ANTONIO; Protocol Last Titration: 10/12/18 18:08 Dose: 8 mcg/min, 2.4 mls/hr Heparin Sodium/Sodium Chloride (Heparin 46791 Units/250ml 1/2 Normal Saline) 25,000 units in 250 mls @ 7.435 mls/hr IV .Q24H PRN; Protocol PRN Reason: PROTOCOL Last Admin: 10/12/18 12:07 Dose: 12 units/kg/hr, 7.435 mls/hr Insulin Aspart (Novolog) 0 unit SC Q6H JO[facility] ANTONIO; Protocol Last Admin: 10/13/18 05:58 Dose: Not Given Metoprolol Tartrate (Lopressor) 2.5 mg IVP Q6H [facility] ANTONIO Last Admin: 10/13/18 05:00 Dose: 2.5 mg Ondansetron HCl (Zofran Inj) 4 mg IVP Q4H PRN PRN Reason: Nausea/Vomiting Pantoprazole Sodium (Protonix Inj) 40 mg IVP Q12H [facility] Last Admin: 10/12/18 21:23 Dose: 40 mg Vitamin A (Vitamin A & D Oint Ud Foilpak) 1 ea TOP Q6 PRN PRN Reason: for dry lips Last Admin: 10/08/18 21:43 Dose: 1 ea - Labs Labs: 10/13/18 05:42 10/12/18 06:03 PT 12.0 SECONDS (9.7-12.2) 10/07/18 16:00 INR 1.1 10/07/18 16:00 APTT 58 SECONDS (21-34) H 10/13/18 05:42
[2018-10-13 06:31] LABS: ALB/GLOB RATIO 1.1 (1.0-2.1); ALT/SGPT 22 U/L (9-52); AST/SGOT 22 U/L (14-36); BLOOD UREA NITROGEN 11 mg/dL (7-17); CALCIUM 8.4 mg/dl (8.6-10.4); GFR NON-AFRICAN AMERICAN > 60
[2018-10-13 07:57] LABS: ANISOCYTOSIS SLIGHT; HYPOCHROMIC SLIGHT; LYMPHOCYTE 5 % (20-40); MONOCYTE 14 % (0-10); NEUTROPHIL 81 % (50-75); PLATELET ESTIMATE NORMAL (NORMAL); POIKILOCYTOSIS SLIGHT; TOTAL CELLS COUNTED 100
[2018-10-13 07:58] LABS: OVALOCYTES SLIGHT; POLYCHROMIC SLIGHT; TARGET CELLS SLIGHT; TEARDROP CELLS SLIGHT
[2018-10-13 07:59] LABS: BURR CELLS SLIGHT
[2018-10-13 08:00] LABS: LARGE PLATELETS PRESENT
[2018-10-13] MEDS ORDERED: Potassium Phosphate 30 MMOLE in Sodium Chloride 0.9% 250 ML IVPB ONE (08:02)
[2018-10-13] MEDS ORDERED: Magnesium Sulfate 1 gm in D5W 1 GM/100 ML BAG IVPB ONE (08:03)
[2018-10-13] MEDS ORDERED: Dextrose 5%/0.9% NS 1,000 ML IV SCH (08:16)
--- NOTE | 2018-10-13 08:17 | CP.CCUPN ---
<BrucerubensStephanie lopez - Last Filed: 10/13/18 12:08> CCU Subjective - Physician Review Subjective (Free Text): 10/13/18 08:17 Sarahjoce Barreralorena PGY1 Progress note for Dr. Mchugh Pt was examined at bedside this morning. Pt currently denies chest pain. She denies passing flatus or having a bowel movement. Pt denies fever, chills, nausea, vomiting, dysuria. CCU Objective - Vital Signs / Intake & Output Vital Signs (Last 4 hours): Vital Signs Temp Pulse Resp BP Pulse Ox 10/13/18 08:00 98.8 F 97 H 22 96 10/13/18 07:31 110 H 20 156/59 H 95 10/13/18 07:00 97 H 25 H 97 10/13/18 06:31 93 H 23 142/51 L 100 10/13/18 06:00 98 H 24 100 10/13/18 05:31 101 H 133/67 90 L 10/13/18 05:00 97 H 23 99 10/13/18 04:30 97 H 23 148/63 99 Intake and Output (Last 8hrs): Intake & Output 10/12/18 10/13/18 10/13/18 22:59 06:59 14:59 Intake Total 1026.0 993.6 10.4 Output Total 200 600 Balance 826.0 393.6 10.4 Weight 136 lb 9.6 oz Intake: IV 44 Intake, IV Amount 982.0 993.6 10.4 Right Forearm 900 800 Right Hand 59.2 66.6 7.4 Right Wrist 22.8 27 3 right wrist 100 Oral 0 0 Output: Urine 200 600 Urine, Voided 200 600 Other: # Voids Urine, Voided 1 0 0 # Bowel Movements 0 0 - Physical Exam Head: Positive for: Atraumatic, Normocephalic Pupils: Positive for: PERRL Extroacular Muscles: Positive for: EOMI Conjunctiva: Positive for: Normal Mouth: Positive for: Moist Mucous Membranes Respiratory/Chest: Positive for: Decreased Breath Sounds. Negative for: Respiratory Distress, Accessory Muscle Use, Wheezes, Rales, Rhonchi Cardiovascular: Positive for: Murmurs, Normal S1, S2, Irregular Rhythm Abdomen: Positive for: Other (surgical site in midline of abdomen clean, dry, intact. hypoactive bowel sounds). Negative for: Tenderness, Distention, Peritoneal Signs Upper Extremity: Positive for: Normal Inspection. Negative for: Cyanosis, Edema Lower Extremity: Positive for: Normal Inspection. Negative for: Edema Neurological: Positive for: GCS=15, CN II-XII Intact, Speech Normal Skin: Positive for: Normal Color Psychiatric: Positive for: Alert, Oriented x 3 - Medications Active Medications: Active Medications Generic Name Dose Route Start Last Admin Trade Name Freq PRN Reason Stop Dose Admin Acetaminophen 650 mg 10/09/18 06:14 10/09/18 06:37 Tylenol 325mg Tab PO 650 mg Q6 PRN Administration Fever >100.4 F Dextrose 0 ml 10/07/18 22:01 Dextrose 50% Inj IV STAT PRN Hypoglycemia Protocol Protocol Dextrose 0 gm 10/07/18 22:01 Glutose 15 PO ONCE PRN Hypoglycemia Protocol Protocol Furosemide 20 mg 10/11/18 10:00 10/12/18 09:25 Lasix IVP 20 mg DAILY JOSE ANTONIO Administration Glucagon 0 mg 10/07/18 22:01 Glucagen Diagnostic Kit IM STAT PRN Hypoglycemia Protocol Protocol Hydromorphone HCl 0.5 mg 10/08/18 18:01 10/13/18 05:01 Dilaudid IVP 0.5 mg Q4H PRN Administration Pain, moderate (4-7) Ciprofloxacin 400 mg in 200 mls @ 133 mls/hr 10/11/18 21:00 10/12/18 21:25 Cipro 400mg/200ml Dsw IVPB 133 mls/hr Q12H JOSE ANTONIO Administration Protocol Metronidazole 500 mg in 100 mls @ 100 mls/hr 10/11/18 22:00 10/13/18 05:41 Flagyl IVPB 100 mls/hr Q8H JOSE ANTONIO Administration Protocol Nitroglycerin/Dextrose 50 mg in 250 mls @ 1.5 mls/hr 10/12/18 11:00 10/12/18 20:00 Nitroglycerin 50 Mg/250 Ml D5w IV 10 mcg/min .Q24H JOSE ANTONIO 3 mls/hr Titration Protocol 5 MCG/MIN Heparin Sodium/Sodium Chloride 25,000 units in 250 mls @ 7.435 mls/hr 10/12/18 12:00 10/12/18 12:07 Heparin 45709 Units/250ml 1/2 Normal Saline IV 12 units/kg/hr .Q24H PRN 7.435 mls/hr PROTOCOL Administration Protocol 12 UNITS/KG/HR Magnesium Sulfate/Dextrose 1 gm in 100 mls @ 200 mls/hr 10/13/18 08:03 Magnesium Sulfate 1 Gm/100 Ml D5w IVPB 10/13/18 08:32 ONCE ONE Potassium Phosphate 30 mmole/ 260 mls @ 42.5 mls/hr 10/13/18 08:02 Sodium Chloride IVPB 10/13/18 14:09 ONCE ONE Dextrose/Sodium Chloride 1,000 mls @ 50 mls/hr 10/13/18 08:16 Dextrose 5%/0.9% Ns 1000 Ml IV .Q20H JOSE ANTONIO Insulin Aspart 0 unit 10/09/18 00:00 10/13/18 05:58 Novolog SC Not Given Q6H [facility] Protocol Metoprolol Tartrate 2.5 mg 10/09/18 10:45 10/13/18 05:00 Lopressor IVP 2.5 mg Q6H JOSE ANTONIO Administration Ondansetron HCl 4 mg 10/07/18 22:25 Zofran Inj IVP Q4H PRN Nausea/Vomiting Pantoprazole Sodium 40 mg 10/07/18 22:00 10/12/18 21:23 Protonix Inj IVP 40 mg Q12H JOSE ANTONIO Administration Vitamin A 1 ea 10/08/18 20:00 10/08/18 21:43 Vitamin A & D Oint Ud Foilpak TOP 1 ea Q6 PRN Administration for dry lips - Patient Studies Lab Studies: Microbiology Studies 10/12/18 00:30 Blood Culture - Preliminary Blood-Venous NO GROWTH AFTER 24 HOURS 10/12/18 00:30 Blood Culture - Preliminary Blood-Venous NO GROWTH AFTER 24 HOURS 10/07/18 19:12 Blood Culture - Final Blood NO GROWTH AFTER 5 DAYS Gram Stain - Final TEST NOT PERFORMED 10/07/18 19:04 Blood Culture - Final Blood NO GROWTH AFTER 5 DAYS Gram Stain - Final TEST NOT PERFORMED Lab Studies 10/13/18 10/13/18 10/13/18 Range/Units 05:42 05:42 05:42 WBC 12.9 H (4.8-10.8) K/uL RBC 3.19 L (3.80-5.20) Mil/uL Hgb 9.7 L (11.0-16.0) g/dL Hct 28.7 L (34.0-47.0) % MCV 89.8 (81.0-99.0) fL MCH 30.3 (27.0-31.0) pg MCHC 33.7 (33.0-37.0) g/dL RDW 16.4 H (11.5-14.5) % Plt Count 237 (130-400) K/uL MPV 8.2 (7.2-11.7) fL Neut % (Auto) 80.2 H (50.0-75.0) % Lymph % (Auto) 5.3 L (20.0-40.0) % Schleicher % (Auto) 12.8 H (0.0-10.0) % Eos % (Auto) 1.4 (0.0-4.0) % Baso % (Auto) 0.3 (0.0-2.0) % Neut # (Auto) 10.4 H (1.8-7.0) K/uL Lymph # (Auto) 0.7 L (1.0-4.3) K/uL Schleicher # (Auto) 1.7 H (0.0-0.8) K/uL Eos # (Auto) 0.2 (0.0-0.7) K/uL Baso # (Auto) 0.0 (0.0-0.2) K/uL Neutrophils % (Manual) 81 H (50-75) % Lymphocytes % (Manual) 5 L (20-40) % Monocytes % (Manual) 14 H (0-10) % Eosinophils % (Manual) (0-4) % Platelet Estimate Normal (NORMAL) Large Platelets Present Polychromasia Slight Hypochromasia (manual) Slight Poikilocytosis (manual Slight Anisocytosis (manual) Slight Target Cells Slight Tear Drop Cells Slight Ovalocytes Slight [place] Cells Slight APTT 58 H (21-34) SECONDS Puncture Site pCO2 (35-45) mm/Hg pO2 (80-100) mm/Hg HCO3 (21-28) mmol/L ABG pH (7.35-7.45) ABG Total CO2 (22-28) mmol/L ABG O2 Saturation (95-98) % ABG Base Excess (-2.0-3.0) mmol/L Rodo Test ABG Potassium (3.6-5.2) mmol/L A-a O2 Difference mm/Hg Respiratory Index Sodium 137 (132-148) mmol/l Chloride 105 (98-107) mmol/L Glucose (65-105) mg/dl Lactate (0.7-2.1) mmol/L FiO2 % Inspiratory BiPAP Expiratory BiPAP Potassium 3.1 L (3.6-5.2) mmol/L Carbon Dioxide 25 (22-30) mmol/L Anion Gap 10 (10-20) BUN 11 (7-17) mg/dL Creatinine 0.6 L (0.7-1.2) mg/dL Est GFR ( Amer) > 60 Est GFR (Non-Af Amer) > 60 POC Glucose (mg/dL) (65-110) mg/dL Random Glucose 206 H (65-105) mg/dL Calcium 8.4 L (8.6-10.4) mg/dl Phosphorus 2.1 L (2.5-4.5) mg/dL Magnesium 1.7 (1.6-2.3) mg/dL Total Bilirubin 0.8 (0.2-1.3) mg/dL AST 22 (14-36) U/L ALT 22 (9-52) U/L Alkaline Phosphatase 63 (38-126) U/L Troponin I (0.00-0.120) ng/mL Total Protein 5.8 L (6.3-8.3) g/dL Albumin 3.0 L (3.5-5.0) g/dL Globulin 2.7 (2.2-3.9) gm/dL Albumin/Globulin Ratio 1.1 (1.0-2.1) Arterial Blood Potassium (3.6-5.2) mmol/L 10/13/18 10/13/18 10/12/18 Range/Units 05:11 00:25 23:58 WBC (4.8-10.8) K/uL RBC (3.80-5.20) Mil/uL Hgb (11.0-16.0) g/dL Hct (34.0-47.0) % MCV (81.0-99.0) fL MCH (27.0-31.0) pg MCHC (33.0-37.0) g/dL RDW (11.5-14.5) % Plt Count (130-400) K/uL MPV (7.2-11.7) fL Neut % (Auto) (50.0-75.0) % Lymph % (Auto) (20.0-40.0) % Schleicher % (Auto) (0.0-10.0) % Eos % (Auto) (0.0-4.0) % Baso % (Auto) (0.0-2.0) % Neut # (Auto) (1.8-7.0) K/uL Lymph # (Auto) (1.0-4.3) K/uL Schleicher # (Auto) (0.0-0.8) K/uL Eos # (Auto) (0.0-0.7) K/uL Baso # (Auto) (0.0-0.2) K/uL Neutrophils % (Manual) (50-75) % Lymphocytes % (Manual) (20-40) % Monocytes % (Manual) (0-10) % Eosinophils % (Manual) (0-4) % Platelet Estimate (NORMAL) Large Platelets Polychromasia Hypochromasia (manual) Poikilocytosis (manual Anisocytosis (manual) Target Cells Tear Drop Cells Ovalocytes Angel Luis Cells APTT 61 H D (21-34) SECONDS Puncture Site pCO2 (35-45) mm/Hg pO2 (80-100) mm/Hg HCO3 (21-28) mmol/L ABG pH (7.35-7.45) ABG Total CO2 (22-28) mmol/L ABG O2 Saturation (95-98) % ABG Base Excess (-2.0-3.0) mmol/L Rodo Test ABG Potassium (3.6-5.2) mmol/L A-a O2 Difference mm/Hg Respiratory Index Sodium (132-148) mmol/l Chloride (98-107) mmol/L Glucose (65-105) mg/dl Lactate (0.7-2.1) mmol/L FiO2 % Inspiratory BiPAP Expiratory BiPAP Potassium (3.6-5.2) mmol/L Carbon Dioxide (22-30) mmol/L Anion Gap (10-20) BUN (7-17) mg/dL Creatinine (0.7-1.2) mg/dL Est GFR ( Amer) Est GFR (Non-Af Amer) POC Glucose (mg/dL) 202 H 235 H (65-110) mg/dL Random Glucose (65-105) mg/dL Calcium (8.6-10.4) mg/dl Phosphorus (2.5-4.5) mg/dL Magnesium (1.6-2.3) mg/dL Total Bilirubin (0.2-1.3) mg/dL AST (14-36) U/L ALT (9-52) U/L Alkaline Phosphatase (38-126) U/L Troponin I (0.00-0.120) ng/mL Total Protein (6.3-8.3) g/dL Albumin (3.5-5.0) g/dL Globulin (2.2-3.9) gm/dL Albumin/Globulin Ratio (1.0-2.1) Arterial Blood Potassium (3.6-5.2) mmol/L 10/12/18 10/12/18 10/12/18 Range/Units 18:06 18:05 14:32 WBC (4.8-10.8) K/uL RBC (3.80-5.20) Mil/uL Hgb (11.0-16.0) g/dL Hct (34.0-47.0) % MCV (81.0-99.0) fL MCH (27.0-31.0) pg MCHC (33.0-37.0) g/dL RDW (11.5-14.5) % Plt Count (130-400) K/uL MPV (7.2-11.7) fL Neut % (Auto) (50.0-75.0) % Lymph % (Auto) (20.0-40.0) % Schleicher % (Auto) (0.0-10.0) % Eos % (Auto) (0.0-4.0) % Baso % (Auto) (0.0-2.0) % Neut # (Auto) (1.8-7.0) K/uL Lymph # (Auto) (1.0-4.3) K/uL Schleicher # (Auto) (0.0-0.8) K/uL Eos # (Auto) (0.0-0.7) K/uL Baso # (Auto) (0.0-0.2) K/uL Neutrophils % (Manual) (50-75) % Lymphocytes % (Manual) (20-40) % Monocytes % (Manual) (0-10) % Eosinophils % (Manual) (0-4) % Platelet Estimate (NORMAL) Large Platelets Polychromasia Hypochromasia (manual) Poikilocytosis (manual Anisocytosis (manual) Target Cells Tear Drop Cells Ovalocytes Angell Uis Cells APTT 51 H D (21-34) SECONDS Puncture Site Lb pCO2 35 (35-45) mm/Hg pO2 76 L (80-100) mm/Hg HCO3 25.0 (21-28) mmol/L ABG pH 7.44 (7.35-7.45) ABG Total CO2 24.9 (22-28) mmol/L ABG O2 Saturation 97.6 (95-98) % ABG Base Excess 0.1 (-2.0-3.0) mmol/L Rodo Test Na ABG Potassium 3.0 L (3.6-5.2) mmol/L A-a O2 Difference 94.0 mm/Hg Respiratory Index 1.2 Sodium 139.0 (132-148) mmol/l Chloride 107.0 (98-107) mmol/L Glucose 307 H (65-105) mg/dl Lactate 1.1 (0.7-2.1) mmol/L FiO2 30.0 % Inspiratory BiPAP 5 Expiratory BiPAP 12 Potassium (3.6-5.2) mmol/L Carbon Dioxide (22-30) mmol/L Anion Gap (10-20) BUN (7-17) mg/dL Creatinine (0.7-1.2) mg/dL Est GFR ( Amer) Est GFR (Non-Af Amer) POC Glucose (mg/dL) 228 H (65-110) mg/dL Random Glucose (65-105) mg/dL Calcium (8.6-10.4) mg/dl Phosphorus (2.5-4.5) mg/dL Magnesium (1.6-2.3) mg/dL Total Bilirubin (0.2-1.3) mg/dL AST (14-36) U/L ALT (9-52) U/L Alkaline Phosphatase (38-126) U/L Troponin I (0.00-0.120) ng/mL Total Protein (6.3-8.3) g/dL Albumin (3.5-5.0) g/dL Globulin (2.2-3.9) gm/dL Albumin/Globulin Ratio (1.0-2.1) Arterial Blood Potassium 3.0 L (3.6-5.2) mmol/L 10/12/18 10/12/18 10/12/18 Range/Units 12:38 12:00 09:19 WBC (4.8-10.8) K/uL RBC (3.80-5.20) Mil/uL Hgb (11.0-16.0) g/dL Hct (34.0-47.0) % MCV (81.0-99.0) fL MCH (27.0-31.0) pg MCHC (33.0-37.0) g/dL RDW (11.5-14.5) % Plt Count (130-400) K/uL MPV (7.2-11.7) fL Neut % (Auto) (50.0-75.0) % Lymph % (Auto) (20.0-40.0) % Schleicher % (Auto) (0.0-10.0) % Eos % (Auto) (0.0-4.0) % Baso % (Auto) (0.0-2.0) % Neut # (Auto) (1.8-7.0) K/uL Lymph # (Auto) (1.0-4.3) K/uL Schleicher # (Auto) (0.0-0.8) K/uL Eos # (Auto) (0.0-0.7) K/uL Baso # (Auto) (0.0-0.2) K/uL Neutrophils % (Manual) (50-75) % Lymphocytes % (Manual) (20-40) % Monocytes % (Manual) (0-10) % Eosinophils % (Manual) (0-4) % Platelet Estimate (NORMAL) Large Platelets Polychromasia Hypochromasia (manual) Poikilocytosis (manual Anisocytosis (manual) Target Cells Tear Drop Cells Ovalocytes [place] Cells APTT 31 (21-34) SECONDS Puncture Site pCO2 (35-45) mm/Hg pO2 (80-100) mm/Hg HCO3 (21-28) mmol/L ABG pH (7.35-7.45) ABG Total CO2 (22-28) mmol/L ABG O2 Saturation (95-98) % ABG Base Excess (-2.0-3.0) mmol/L Rodo Test ABG Potassium (3.6-5.2) mmol/L A-a O2 Difference mm/Hg Respiratory Index Sodium (132-148) mmol/l Chloride (98-107) mmol/L Glucose (65-105) mg/dl Lactate (0.7-2.1) mmol/L FiO2 % Inspiratory BiPAP Expiratory BiPAP Potassium (3.6-5.2) mmol/L Carbon Dioxide (22-30) mmol/L Anion Gap (10-20) BUN (7-17) mg/dL Creatinine (0.7-1.2) mg/dL Est GFR ( Amer) Est GFR (Non-Af Amer) POC Glucose (mg/dL) 265 H (65-110) mg/dL Random Glucose (65-105) mg/dL Calcium (8.6-10.4) mg/dl Phosphorus (2.5-4.5) mg/dL Magnesium (1.6-2.3) mg/dL Total Bilirubin (0.2-1.3) mg/dL AST (14-36) U/L ALT (9-52) U/L Alkaline Phosphatase (38-126) U/L Troponin I 0.8880 H* (0.00-0.120) ng/mL Total Protein (6.3-8.3) g/dL Albumin (3.5-5.0) g/dL Globulin (2.2-3.9) gm/dL Albumin/Globulin Ratio (1.0-2.1) Arterial Blood Potassium (3.6-5.2) mmol/L 10/12/18 Range/Units 06:03 WBC (4.8-10.8) K/uL RBC (3.80-5.20) Mil/uL Hgb (11.0-16.0) g/dL Hct (34.0-47.0) % MCV (81.0-99.0) fL MCH (27.0-31.0) pg MCHC (33.0-37.0) g/dL RDW (11.5-14.5) % Plt Count (130-400) K/uL MPV (7.2-11.7) fL Neut % (Auto) (50.0-75.0) % Lymph % (Auto) (20.0-40.0) % Schleicher % (Auto) (0.0-10.0) % Eos % (Auto) (0.0-4.0) % Baso % (Auto) (0.0-2.0) % Neut # (Auto) (1.8-7.0) K/uL Lymph # (Auto) (1.0-4.3) K/uL Schleicher # (Auto) (0.0-0.8) K/uL Eos # (Auto) (0.0-0.7) K/uL Baso # (Auto) (0.0-0.2) K/uL Neutrophils % (Manual) 87 H (50-75) % Lymphocytes % (Manual) 3 L (20-40) % Monocytes % (Manual) 7 (0-10) % Eosinophils % (Manual) 3 (0-4) % Platelet Estimate Normal (NORMAL) Large Platelets Polychromasia Slight Hypochromasia (manual) Slight Poikilocytosis (manual Anisocytosis (manual) Slight Target Cells Tear Drop Cells Ovalocytes [place] Cells APTT (21-34) SECONDS Puncture Site pCO2 (35-45) mm/Hg pO2 (80-100) mm/Hg HCO3 (21-28) mmol/L ABG pH (7.35-7.45) ABG Total CO2 (22-28) mmol/L ABG O2 Saturation (95-98) % ABG Base Excess (-2.0-3.0) mmol/L Rodo Test ABG Potassium (3.6-5.2) mmol/L A-a O2 Difference mm/Hg Respiratory Index Sodium (132-148) mmol/l Chloride (98-107) mmol/L Glucose (65-105) mg/dl Lactate (0.7-2.1) mmol/L FiO2 % Inspiratory BiPAP Expiratory BiPAP Potassium (3.6-5.2) mmol/L Carbon Dioxide (22-30) mmol/L Anion Gap (10-20) BUN (7-17) mg/dL Creatinine (0.7-1.2) mg/dL Est GFR ( Amer) Est GFR (Non-Af Amer) POC Glucose (mg/dL) (65-110) mg/dL Random Glucose (65-105) mg/dL Calcium (8.6-10.4) mg/dl Phosphorus (2.5-4.5) mg/dL Magnesium (1.6-2.3) mg/dL Total Bilirubin (0.2-1.3) mg/dL AST (14-36) U/L ALT (9-52) U/L Alkaline Phosphatase (38-126) U/L Troponin I (0.00-0.120) ng/mL Total Protein (6.3-8.3) g/dL Albumin (3.5-5.0) g/dL Globulin (2.2-3.9) gm/dL Albumin/Globulin Ratio (1.0-2.1) Arterial Blood Potassium (3.6-5.2) mmol/L Laboratory Results - last 24 hr 10/12/18 10/12/18 10/12/18 06:03 09:19 12:00 WBC RBC Hgb Hct MCV MCH MCHC RDW Plt Count MPV Neut % (Auto) Lymph % (Auto) Schleicher % (Auto) Eos % (Auto) Baso % (Auto) Neut # (Auto) Lymph # (Auto) Schleicher # (Auto) Eos # (Auto) Baso # (Auto) Neutrophils % (Manual) 87 H Lymphocytes % (Manual) 3 L Monocytes % (Manual) 7 Eosinophils % (Manual) 3 Platelet Estimate Normal Large Platelets Polychromasia Slight Hypochromasia (manual) Slight Poikilocytosis (manual Anisocytosis (manual) Slight Target Cells Tear Drop Cells Ovalocytes Angel Luis Cells APTT Puncture Site pCO2 pO2 HCO3 ABG pH ABG Total CO2 ABG O2 Saturation ABG Base Excess Rodo Test ABG Potassium A-a O2 Difference Respiratory Index Sodium Chloride Glucose Lactate FiO2 Inspiratory BiPAP Expiratory BiPAP Potassium Carbon Dioxide Anion Gap BUN Creatinine Est GFR ( Amer) Est GFR (Non-Af Amer) POC Glucose (mg/dL) 265 H Random Glucose Calcium Phosphorus Magnesium Total Bilirubin AST ALT Alkaline Phosphatase Troponin I 0.8880 H* Total Protein Albumin Globulin Albumin/Globulin Ratio Arterial Blood Potassium 10/12/18 10/12/18 10/12/18 12:38 14:32 18:05 WBC RBC Hgb Hct MCV MCH MCHC RDW Plt Count MPV Neut % (Auto) Lymph % (Auto) Schleicher % (Auto) Eos % (Auto) Baso % (Auto) Neut # (Auto) Lymph # (Auto) Schleicher # (Auto) Eos # (Auto) Baso # (Auto) Neutrophils % (Manual) Lymphocytes % (Manual) Monocytes % (Manual) Eosinophils % (Manual) Platelet Estimate Large Platelets Polychromasia Hypochromasia (manual) Poikilocytosis (manual Anisocytosis (manual) Target Cells Tear Drop Cells Ovalocytes Angel Luis Cells APTT 31 51 H D Puncture Site Lb pCO2 35 pO2 76 L HCO3 25.0 ABG pH 7.44 ABG Total CO2 24.9 ABG O2 Saturation 97.6 ABG Base Excess 0.1 Rodo Test Na ABG Potassium 3.0 L A-a O2 Difference 94.0 Respiratory Index 1.2 Sodium 139.0 Chloride 107.0 Glucose 307 H Lactate 1.1 FiO2 30.0 Inspiratory BiPAP 5 Expiratory BiPAP 12 Potassium Carbon Dioxide Anion Gap BUN Creatinine Est GFR ( Amer) Est GFR (Non-Af Amer) POC Glucose (mg/dL) Random Glucose Calcium Phosphorus Magnesium Total Bilirubin AST ALT Alkaline Phosphatase Troponin I Total Protein Albumin Globulin Albumin/Globulin Ratio Arterial Blood Potassium 3.0 L 10/12/18 10/12/18 10/13/18 18:06 23:58 00:25 WBC RBC Hgb Hct MCV MCH MCHC RDW Plt Count MPV Neut % (Auto) Lymph % (Auto) Schleicher % (Auto) Eos % (Auto) Baso % (Auto) Neut # (Auto) Lymph # (Auto) Schleicher # (Auto) Eos # (Auto) Baso # (Auto) Neutrophils % (Manual) Lymphocytes % (Manual) Monocytes % (Manual) Eosinophils % (Manual) Platelet Estimate Large Platelets Polychromasia Hypochromasia (manual) Poikilocytosis (manual Anisocytosis (manual) Target Cells Tear Drop Cells Ovalocytes Angel Luis Cells APTT 61 H D Puncture Site pCO2 pO2 HCO3 ABG pH ABG Total CO2 ABG O2 Saturation ABG Base Excess Rodo Test ABG Potassium A-a O2 Difference Respiratory Index Sodium Chloride Glucose Lactate FiO2 Inspiratory BiPAP Expiratory BiPAP Potassium Carbon Dioxide Anion Gap BUN Creatinine Est GFR ( Amer) Est GFR (Non-Af Amer) POC Glucose (mg/dL) 228 H 235 H Random Glucose Calcium Phosphorus Magnesium Total Bilirubin AST ALT Alkaline Phosphatase Troponin I Total Protein Albumin Globulin Albumin/Globulin Ratio Arterial Blood Potassium 12/12/18 12/12/18 12/12/18 05:11 05:42 05:42 WBC 12.9 H RBC 3.19 L Hgb 9.7 L Hct 28.7 L MCV 89.8 MCH 30.3 MCHC 33.7 RDW 16.4 H Plt Count 237 MPV 8.2 Neut % (Auto) 80.2 H Lymph % (Auto) 5.3 L Schleicher % (Auto) 12.8 H Eos % (Auto) 1.4 Baso % (Auto) 0.3 Neut # (Auto) 10.4 H Lymph # (Auto) 0.7 L Schleicher # (Auto) 1.7 H Eos # (Auto) 0.2 Baso # (Auto) 0.0 Neutrophils % (Manual) 81 H Lymphocytes % (Manual) 5 L Monocytes % (Manual) 14 H Eosinophils % (Manual) Platelet Estimate Normal Large Platelets Present Polychromasia Slight Hypochromasia (manual) Slight Poikilocytosis (manual Slight Anisocytosis (manual) Slight Target Cells Slight Tear Drop Cells Slight Ovalocytes Slight Angel Luis Cells Slight APTT Puncture Site pCO2 pO2 HCO3 ABG pH ABG Total CO2 ABG O2 Saturation ABG Base Excess Rodo Test ABG Potassium A-a O2 Difference Respiratory Index Sodium 137 Chloride 105 Glucose Lactate FiO2 Inspiratory BiPAP Expiratory BiPAP Potassium 3.1 L Carbon Dioxide 25 Anion Gap 10 BUN 11 Creatinine 0.6 L Est GFR ( Amer) > 60 Est GFR (Non-Af Amer) > 60 POC Glucose (mg/dL) 202 H Random Glucose 206 H Calcium 8.4 L Phosphorus 2.1 L Magnesium 1.7 Total Bilirubin 0.8 AST 22 ALT 22 Alkaline Phosphatase 63 Troponin I Total Protein 5.8 L Albumin 3.0 L Globulin 2.7 Albumin/Globulin Ratio 1.1 Arterial Blood Potassium 10/13/18 05:42 WBC RBC Hgb Hct MCV MCH MCHC RDW Plt Count MPV Neut % (Auto) Lymph % (Auto) Schleicher % (Auto) Eos % (Auto) Baso % (Auto) Neut # (Auto) Lymph # (Auto) Schleicher # (Auto) Eos # (Auto) Baso # (Auto) Neutrophils % (Manual) Lymphocytes % (Manual) Monocytes % (Manual) Eosinophils % (Manual) Platelet Estimate Large Platelets Polychromasia Hypochromasia (manual) Poikilocytosis (manual Anisocytosis (manual) Target Cells Tear Drop Cells Ovalocytes Angel Luis Cells APTT 58 H Puncture Site pCO2 pO2 HCO3 ABG pH ABG Total CO2 ABG O2 Saturation ABG Base Excess Rodo Test ABG Potassium A-a O2 Difference Respiratory Index Sodium Chloride Glucose Lactate FiO2 Inspiratory BiPAP Expiratory BiPAP Potassium Carbon Dioxide Anion Gap BUN Creatinine Est GFR ( Amer) Est GFR (Non-Af Amer) POC Glucose (mg/dL) Random Glucose Calcium Phosphorus Magnesium Total Bilirubin AST ALT Alkaline Phosphatase Troponin I Total Protein Albumin Globulin Albumin/Globulin Ratio Arterial Blood Potassium Radiology Impressions: Radiology Impressions Chest CT 10/12/18 14:12 IMPRESSION: No evidence of acute central pulmonary embolus. Small to medium size right-sided effusion and mild right basilar atelectasis. Small left-sided effusion and minor left basilar atelectasis. Centrilobular/panlobular emphysematous changes upper lobe predominance right more severely affected than the left. There is also a large right upper lobe bulla. EKG/Cardiology Studies: Cardiology / EKG Studies 10/12/18 08:55 EKG [ELECTROCARDIOGRAM] Routine Comment: Mode Of Transportation: Reason For Exam: Chest Pain 10/12/18 14:12 ELECTROCARDIOGRAM Stat Comment: Mode Of Transportation: Reason For Exam: chest pain Fingerstick Blood Sugar Results: 202 Review of Systems - Review of Systems Review of Systems: as per [facility] Critical Care Progress Note - Nutrition Nutrition: Nutrition Category Date Time Status NPO Diet [DIET] Diets 10/09/18 Breakfast Active Assessment/Plan - Assessment and Plan (Free Text) Assessment: 73yo F with PMH DM, HTN, HLD, CAD, COPD, asthma, arthritis, anxiety, osteoporosis presented to ED with black stool and abdominal pain, found to have acute appendicitis. S/p open appendectomy 10/08 w/ NSTEMI, currently being monitored in ICU. Chest pain resolved. Plan: Neuro - AAOx3 - no focal deficits Cardiovascular - h/o CAD, HTN, HLD - NSTEMI 10/08 - chest pain resolved - CT chest 10/12: no PE. moderate R sided pleural effusion, small L sided pleural effusion, emphysematous changes. - CXR 10/11: pulmonary venous congestion, CHF improved from previous CXR - ECHO 08/19: normal systolic LV function, normal EF. moderate and AR - d/c nitro drip - lopressor 5mg IVP q6h - lasix 20mg IV daily - heparin @12 u/kg/hr - maintain normotension - not candidate for CABG/PCI at this time, as per cardio - Cardio consulted, Dr. Desmond abdi appreciated Pulm - h/o COPD, asthma - CT chest 10/12: no PE. moderate R sided pleural effusion, small L sided pleural effusion, emphysematous changes. - CXR 10/11: pulmonary venous congestion, CHF improved from previous CXR - lasix 20mg IV daily - NC - incentive spirometry - maintain SpO2 >92% GI - CT abd/pel 10/11: large fluid in pelvis, small fluid around liver and spleen. small perinephric fluid. colitis in descending colon. edematous wall changes in stomach. air in bladder. large splenic lesion possibly hemangioma. - CT abd/pel 10/07: acute appendicitis, extending from pelvic cecum to retrocecal location in RLQ. - s/p open appendectomy and lysis of adhesions 10/08 - no BM yet - zofran 4mg IVP q4h PRN - protonix 40mg IVP q12h - dilaudid 0.5mg q4h PRN - tylenol 650mg q6h PRN - CLD - for EGD tomorrow - Gen Sx consulted, Dr. Chucho abdi appreciated - GI consulted, Dr. Pipe abdi appreciated Heme - H/H 9.7/28.7 - s/p 3u PRBC - heparin @12 u/kg/hr Endo - h/o DM - low dose novolog q6h - accuchecks q6h - hypoglycemia protocol - maintain euglycemic ID - pt afebrile - leukocytosis - BCx neg x5 - cipro 400mg IV q12h - flagyl 500mg IV q8h PPX: GI: protonix 40mg IVP q12h DVT: heparin drip, hold 7am tomorrow for EGD NPO past midnight Pt seen and case discussed with Dr. Mchugh <Navi Mchugh - Last Filed: 10/13/18 16:07> CCU Subjective - Physician Review Critical Care Time Spent (in minutes): 40 CCU Objective - Vital Signs / Intake & Output Vital Signs (Last 4 hours): Vital Signs Pulse Resp BP Pulse Ox 10/13/18 15:00 107 H 14 99 10/13/18 14:31 104 H 35 H 142/61 97 10/13/18 14:00 96 H 23 100 10/13/18 13:39 92 H 10/13/18 13:30 94 H 27 H 129/59 L 99 10/13/18 13:00 92 H 27 H 90 L 10/13/18 12:31 89 22 143/54 L 100 Intake and Output (Last 8hrs): Intake & Output 10/13/18 10/13/18 10/13/18 06:59 14:59 22:59 Intake Total 993.6 1176.3 149.9 Output Total 600 800 Balance 393.6 376.3 149.9 Weight 136 lb 9.6 oz Intake: Intake, IV Amount 993.6 1026.3 149.9 Right Forearm 800 Right Hand 66.6 500 0 Right Wrist 27 63.8 7.4 Right hand #2 362.5 42.5 right wrist 100 100 100 Oral 0 150 0 Output: Urine 600 800 Urine, Voided 600 800 Other: # Voids Urine, Voided 0 0 0 # Bowel Movements 0 0 0 - Medications Active Medications: Active Medications Generic Name Dose Route Start Last Admin Trade Name Freq PRN Reason Stop Dose Admin Acetaminophen 650 mg 10/09/18 06:14 10/09/18 06:37 Tylenol 325mg Tab PO 650 mg Q6 PRN Administration Fever >100.4 F Dextrose 0 ml 10/07/18 22:01 Dextrose 50% Inj IV STAT PRN Hypoglycemia Protocol Protocol Dextrose 0 gm 10/07/18 22:01 Glutose 15 PO ONCE PRN Hypoglycemia Protocol Protocol Furosemide 20 mg 10/11/18 10:00 10/13/18 10:51 Lasix IVP 20 mg DAILY JOSE ANTONIO Administration Glucagon 0 mg 10/07/18 22:01 Glucagen Diagnostic Kit IM STAT PRN Hypoglycemia Protocol Protocol Hydromorphone HCl 0.5 mg 10/08/18 18:01 10/13/18 15:04 Dilaudid IVP 0.5 mg Q4H PRN Administration Pain, moderate (4-7) Ciprofloxacin 400 mg in 200 mls @ 133 mls/hr 10/11/18 21:00 10/13/18 09:30 Cipro 400mg/200ml Dsw IVPB 133 mls/hr Q12H JOSE ANTONIO Administration Protocol Metronidazole 500 mg in 100 mls @ 100 mls/hr 10/11/18 22:00 10/13/18 14:48 Flagyl IVPB 100 mls/hr Q8H [facility] Administration Protocol Heparin Sodium/Sodium Chloride 25,000 units in 250 mls @ 7.435 mls/hr 10/12/18 12:00 10/12/18 12:07 Heparin 29184 Units/250ml 1/2 Normal Saline IV 12 units/kg/hr .Q24H PRN 7.435 mls/hr PROTOCOL Administration Protocol 12 UNITS/KG/HR Insulin Aspart 0 unit 10/09/18 00:00 10/13/18 12:47 Novolog SC 2 units Q6H [facility] Administration Protocol Metoprolol Tartrate 5 mg 10/13/18 18:00 Lopressor IVP Q6 [facility] Nitroglycerin 1 ea 10/13/18 11:00 10/13/18 10:52 Nitro-Bid 2% Oint TOP 10/15/18 11:01 1 ea Q6H [facility] Administration Ondansetron HCl 4 mg 10/07/18 22:25 Zofran Inj IVP Q4H PRN Nausea/Vomiting Pantoprazole Sodium 40 mg 10/07/18 22:00 10/13/18 10:51 Protonix Inj IVP 40 mg Q12H [facility] Administration Vitamin A 1 ea 10/08/18 20:00 10/08/18 21:43 Vitamin A & D Oint Ud Foilpak TOP 1 ea Q6 PRN Administration for dry lips - Patient Studies Lab Studies: Microbiology Studies 10/12/18 00:30 Blood Culture - Preliminary Blood-Venous NO GROWTH AFTER 24 HOURS 10/12/18 00:30 Blood Culture - Preliminary Blood-Venous NO GROWTH AFTER 24 HOURS 10/07/18 19:12 Blood Culture - Final Blood NO GROWTH AFTER 5 DAYS Gram Stain - Final TEST NOT PERFORMED 10/07/18 19:04 Blood Culture - Final Blood NO GROWTH AFTER 5 DAYS Gram Stain - Final TEST NOT PERFORMED Lab Studies 10/13/18 10/13/18 10/13/18 Range/Units 11:42 05:42 05:42 WBC (4.8-10.8) K/uL RBC (3.80-5.20) Mil/uL Hgb (11.0-16.0) g/dL Hct (34.0-47.0) % MCV (81.0-99.0) fL MCH (27.0-31.0) pg MCHC (33.0-37.0) g/dL RDW (11.5-14.5) % Plt Count (130-400) K/uL MPV (7.2-11.7) fL Neut % (Auto) (50.0-75.0) % Lymph % (Auto) (20.0-40.0) % Schleicher % (Auto) (0.0-10.0) % Eos % (Auto) (0.0-4.0) % Baso % (Auto) (0.0-2.0) % Neut # (Auto) (1.8-7.0) K/uL Lymph # (Auto) (1.0-4.3) K/uL Schleicher # (Auto) (0.0-0.8) K/uL Eos # (Auto) (0.0-0.7) K/uL Baso # (Auto) (0.0-0.2) K/uL Neutrophils % (Manual) (50-75) % Lymphocytes % (Manual) (20-40) % Monocytes % (Manual) (0-10) % Platelet Estimate (NORMAL) Large Platelets Polychromasia Hypochromasia (manual) Poikilocytosis (manual Anisocytosis (manual) Target Cells Tear Drop Cells Ovalocytes [place] Cells APTT 58 H (21-34) SECONDS Sodium 137 (132-148) mmol/L Potassium 3.1 L (3.6-5.2) mmol/L Chloride 105 (98-107) mmol/L Carbon Dioxide 25 (22-30) mmol/L Anion Gap 10 (10-20) BUN 11 (7-17) mg/dL Creatinine 0.6 L (0.7-1.2) mg/dL Est GFR ( Amer) > 60 Est GFR (Non-Af Amer) > 60 POC Glucose (mg/dL) 239 H (65-110) mg/dL Random Glucose 206 H (65-105) mg/dL Calcium 8.4 L (8.6-10.4) mg/dl Phosphorus 2.1 L (2.5-4.5) mg/dL Magnesium 1.7 (1.6-2.3) mg/dL Total Bilirubin 0.8 (0.2-1.3) mg/dL AST 22 (14-36) U/L ALT 22 (9-52) U/L Alkaline Phosphatase 63 (38-126) U/L Total Protein 5.8 L (6.3-8.3) g/dL Albumin 3.0 L (3.5-5.0) g/dL Globulin 2.7 (2.2-3.9) gm/dL Albumin/Globulin Ratio 1.1 (1.0-2.1) 10/13/18 10/13/18 10/13/18 Range/Units 05:42 05:11 00:25 WBC 12.9 H (4.8-10.8) K/uL RBC 3.19 L (3.80-5.20) Mil/uL Hgb 9.7 L (11.0-16.0) g/dL Hct 28.7 L (34.0-47.0) % MCV 89.8 (81.0-99.0) fL MCH 30.3 (27.0-31.0) pg MCHC 33.7 (33.0-37.0) g/dL RDW 16.4 H (11.5-14.5) % Plt Count 237 (130-400) K/uL MPV 8.2 (7.2-11.7) fL Neut % (Auto) 80.2 H (50.0-75.0) % Lymph % (Auto) 5.3 L (20.0-40.0) % Schleicher % (Auto) 12.8 H (0.0-10.0) % Eos % (Auto) 1.4 (0.0-4.0) % Baso % (Auto) 0.3 (0.0-2.0) % Neut # (Auto) 10.4 H (1.8-7.0) K/uL Lymph # (Auto) 0.7 L (1.0-4.3) K/uL Schleicher # (Auto) 1.7 H (0.0-0.8) K/uL Eos # (Auto) 0.2 (0.0-0.7) K/uL Baso # (Auto) 0.0 (0.0-0.2) K/uL Neutrophils % (Manual) 81 H (50-75) % Lymphocytes % (Manual) 5 L (20-40) % Monocytes % (Manual) 14 H (0-10) % Platelet Estimate Normal (NORMAL) Large Platelets Present Polychromasia Slight Hypochromasia (manual) Slight Poikilocytosis (manual Slight Anisocytosis (manual) Slight Target Cells Slight Tear Drop Cells Slight Ovalocytes Slight Angel Luis Cells Slight APTT 61 H D (21-34) SECONDS Sodium (132-148) mmol/L Potassium (3.6-5.2) mmol/L Chloride (98-107) mmol/L Carbon Dioxide (22-30) mmol/L Anion Gap (10-20) BUN (7-17) mg/dL Creatinine (0.7-1.2) mg/dL Est GFR ( Amer) Est GFR (Non-Af Amer) POC Glucose (mg/dL) 202 H (65-110) mg/dL Random Glucose (65-105) mg/dL Calcium (8.6-10.4) mg/dl Phosphorus (2.5-4.5) mg/dL Magnesium (1.6-2.3) mg/dL Total Bilirubin (0.2-1.3) mg/dL AST (14-36) U/L ALT (9-52) U/L Alkaline Phosphatase (38-126) U/L Total Protein (6.3-8.3) g/dL Albumin (3.5-5.0) g/dL Globulin (2.2-3.9) gm/dL Albumin/Globulin Ratio (1.0-2.1) 10/12/18 10/12/18 10/12/18 Range/Units 23:58 18:06 18:05 WBC (4.8-10.8) K/uL RBC (3.80-5.20) Mil/uL Hgb (11.0-16.0) g/dL Hct (34.0-47.0) % MCV (81.0-99.0) fL MCH (27.0-31.0) pg MCHC (33.0-37.0) g/dL RDW (11.5-14.5) % Plt Count (130-400) K/uL MPV (7.2-11.7) fL Neut % (Auto) (50.0-75.0) % Lymph % (Auto) (20.0-40.0) % Schleicher % (Auto) (0.0-10.0) % Eos % (Auto) (0.0-4.0) % Baso % (Auto) (0.0-2.0) % Neut # (Auto) (1.8-7.0) K/uL Lymph # (Auto) (1.0-4.3) K/uL Schleicher # (Auto) (0.0-0.8) K/uL Eos # (Auto) (0.0-0.7) K/uL Baso # (Auto) (0.0-0.2) K/uL Neutrophils % (Manual) (50-75) % Lymphocytes % (Manual) (20-40) % Monocytes % (Manual) (0-10) % Platelet Estimate (NORMAL) Large Platelets Polychromasia Hypochromasia (manual) Poikilocytosis (manual Anisocytosis (manual) Target Cells Tear Drop Cells Ovalocytes [place] Cells APTT 51 H D (21-34) SECONDS Sodium (132-148) mmol/L Potassium (3.6-5.2) mmol/L Chloride (98-107) mmol/L Carbon Dioxide (22-30) mmol/L Anion Gap (10-20) BUN (7-17) mg/dL Creatinine (0.7-1.2) mg/dL Est GFR ( Amer) Est GFR (Non-Af Amer) POC Glucose (mg/dL) 235 H 228 H (65-110) mg/dL Random Glucose (65-105) mg/dL Calcium (8.6-10.4) mg/dl Phosphorus (2.5-4.5) mg/dL Magnesium (1.6-2.3) mg/dL Total Bilirubin (0.2-1.3) mg/dL AST (14-36) U/L ALT (9-52) U/L Alkaline Phosphatase (38-126) U/L Total Protein (6.3-8.3) g/dL Albumin (3.5-5.0) g/dL Globulin (2.2-3.9) gm/dL Albumin/Globulin Ratio (1.0-2.1) Laboratory Results - last 24 hr 10/12/18 10/12/18 10/12/18 18:05 18:06 23:58 WBC RBC Hgb Hct MCV MCH MCHC RDW Plt Count MPV Neut % (Auto) Lymph % (Auto) Schleicher % (Auto) Eos % (Auto) Baso % (Auto) Neut # (Auto) Lymph # (Auto) Schleicher # (Auto) Eos # (Auto) Baso # (Auto) Neutrophils % (Manual) Lymphocytes % (Manual) Monocytes % (Manual) Platelet Estimate Large Platelets Polychromasia Hypochromasia (manual) Poikilocytosis (manual Anisocytosis (manual) Target Cells Tear Drop Cells Ovalocytes [place] Cells APTT 51 H D Sodium Potassium Chloride Carbon Dioxide Anion Gap BUN Creatinine Est GFR ( Amer) Est GFR (Non-Af Amer) POC Glucose (mg/dL) 228 H 235 H Random Glucose Calcium Phosphorus Magnesium Total Bilirubin AST ALT Alkaline Phosphatase Total Protein Albumin Globulin Albumin/Globulin Ratio 10/13/18 10/13/18 10/13/18 00:25 05:11 05:42 WBC 12.9 H RBC 3.19 L Hgb 9.7 L Hct 28.7 L MCV 89.8 MCH 30.3 MCHC 33.7 RDW 16.4 H Plt Count 237 MPV 8.2 Neut % (Auto) 80.2 H Lymph % (Auto) 5.3 L Schleicher % (Auto) 12.8 H Eos % (Auto) 1.4 Baso % (Auto) 0.3 Neut # (Auto) 10.4 H Lymph # (Auto) 0.7 L Schleicher # (Auto) 1.7 H Eos # (Auto) 0.2 Baso # (Auto) 0.0 Neutrophils % (Manual) 81 H Lymphocytes % (Manual) 5 L Monocytes % (Manual) 14 H Platelet Estimate Normal Large Platelets Present Polychromasia Slight Hypochromasia (manual) Slight Poikilocytosis (manual Slight Anisocytosis (manual) Slight Target Cells Slight Tear Drop Cells Slight Ovalocytes Slight Angel Luis Cells Slight APTT 61 H D Sodium Potassium Chloride Carbon Dioxide Anion Gap BUN Creatinine Est GFR ( Amer) Est GFR (Non-Af Amer) POC Glucose (mg/dL) 202 H Random Glucose Calcium Phosphorus Magnesium Total Bilirubin AST ALT Alkaline Phosphatase Total Protein Albumin Globulin Albumin/Globulin Ratio 10/13/18 10/13/18 10/13/18 05:42 05:42 11:42 WBC RBC Hgb Hct MCV MCH MCHC RDW Plt Count MPV Neut % (Auto) Lymph % (Auto) Schleicher % (Auto) Eos % (Auto) Baso % (Auto) Neut # (Auto) Lymph # (Auto) Schleicher # (Auto) Eos # (Auto) Baso # (Auto) Neutrophils % (Manual) Lymphocytes % (Manual) Monocytes % (Manual) Platelet Estimate Large Platelets Polychromasia Hypochromasia (manual) Poikilocytosis (manual Anisocytosis (manual) Target Cells Tear Drop Cells Ovalocytes [place] Cells APTT 58 H Sodium 137 Potassium 3.1 L Chloride 105 Carbon Dioxide 25 Anion Gap 10 BUN 11 Creatinine 0.6 L Est GFR ( Amer) > 60 Est GFR (Non-Af Amer) > 60 POC Glucose (mg/dL) 239 H Random Glucose 206 H Calcium 8.4 L Phosphorus 2.1 L Magnesium 1.7 Total Bilirubin 0.8 AST 22 ALT 22 Alkaline Phosphatase 63 Total Protein 5.8 L Albumin 3.0 L Globulin 2.7 Albumin/Globulin Ratio 1.1 Radiology Impressions: Radiology Impressions Chest CT 10/12/18 14:12 IMPRESSION: No evidence of acute central pulmonary embolus. Small to medium size right-sided effusion and mild right basilar atelectasis. Small left-sided effusion and minor left basilar atelectasis. Centrilobular/panlobular emphysematous changes upper lobe predominance right more severely affected than the left. There is also a large right upper lobe bulla. Critical Care Progress Note - Nutrition Nutrition: Nutrition Category Date Time Status Liquid Diet [DIET] Diets 10/13/18 Lunch Active NPO Diet [DIET] Diets 10/14/18 Breakfast Active Attending/Attestation - Attestation I have personally seen and examined this patient.: Yes I have fully participated in the care of the patient.: Yes I have reviewed all pertinent clinical information: Yes Notes (Text): 10/13/18 16:06 patient seen and examined in the intensive care unit. Denies shortness of breath, denies chest pain Patient is off Tridil drip Continue anticoagulation Consider starting clear liquid diet Seen by cardiology and not a candidate for cardiac cath CAT scan of the chest noted Follow-up pleural effusion
--- NOTE | 2018-10-13 09:29 | CP.PCM.PN ---
<Mary Zuritaa - Last Filed: 10/13/18 09:24> Subjective - Date & Time of Evaluation Date of Evaluation: 10/13/18 Time of Evaluation: 09:24 - Subjective Subjective: Cardiology Follow Up Patient was seen and examined at bedside. Currently on tridil drip. Patient denied any chest pain, shortness of breath, or palpitations. Objective - Vital Signs/Intake and Output Vital Signs (last 24 hours): Temp Pulse Resp BP Pulse Ox 98.8 F 97 H 22 156/59 H 99 10/13/18 08:00 10/13/18 08:00 10/13/18 08:00 10/13/18 07:31 10/13/18 08:00 Intake and Output: 10/13/18 10/13/18 06:59 18:59 Intake Total 1554.6 110.4 Output Total 600 Balance 954.6 110.4 - Medications Medications: Current Medications Acetaminophen (Tylenol 325mg Tab) 650 mg PO Q6 PRN PRN Reason: Fever >100.4 F Last Admin: 10/09/18 06:37 Dose: 650 mg Dextrose (Dextrose 50% Inj) 0 ml IV STAT PRN; Protocol PRN Reason: Hypoglycemia Protocol Dextrose (Glutose 15) 0 gm PO ONCE PRN; Protocol PRN Reason: Hypoglycemia Protocol Furosemide (Lasix) 20 mg IVP DAILY [facility] AN[facility] Last Admin: 10/12/18 09:25 Dose: 20 mg Glucagon (Glucagen Diagnostic Kit) 0 mg IM STAT PRN; Protocol PRN Reason: Hypoglycemia Protocol Hydromorphone HCl (Dilaudid) 0.5 mg IVP Q4H PRN PRN Reason: Pain, moderate (4-7) Last Admin: 10/13/18 09:19 Dose: 0.5 mg Ciprofloxacin (Cipro 400mg/200ml Dsw) 400 mg in 200 mls @ 133 mls/hr IVPB Q12H [facility]; Protocol Last Admin: 10/12/18 21:25 Dose: 133 mls/hr Metronidazole (Flagyl) 500 mg in 100 mls @ 100 mls/hr IVPB Q8H [facility]; Protocol Last Admin: 10/13/18 05:41 Dose: 100 mls/hr Nitroglycerin/Dextrose (Nitroglycerin 50 Mg/250 Ml D5w) 50 mg in 250 mls @ 1.5 mls/hr IV .Q24H [facility]; Protocol Last Titration: 10/12/18 20:00 Dose: 10 mcg/min, 3 mls/hr Heparin Sodium/Sodium Chloride (Heparin 13404 Units/250ml 1/2 Normal Saline) 25,000 units in 250 mls @ 7.435 mls/hr IV .Q24H PRN; Protocol PRN Reason: PROTOCOL Last Admin: 10/12/18 12:07 Dose: 12 units/kg/hr, 7.435 mls/hr Potassium Phosphate 30 mmole/ (Sodium Chloride) 260 mls @ 42.5 mls/hr IVPB ONCE ONE Stop: 10/13/18 14:09 Last Admin: 10/13/18 09:02 Dose: 42.5 mls/hr Potassium Chloride (Potassium Chloride 10 Meq/100 Ml) 10 meq in 100 mls @ 100 mls/hr IVPB Q1H [facility] Stop: 10/13/18 11:14 Insulin Aspart (Novolog) 0 unit SC Q6H [facility]; Protocol Last Admin: 10/13/18 05:58 Dose: Not Given Metoprolol Tartrate (Lopressor) 5 mg IVP Q6H [facility] Ondansetron HCl (Zofran Inj) 4 mg IVP Q4H PRN PRN Reason: Nausea/Vomiting Pantoprazole Sodium (Protonix Inj) 40 mg IVP Q12H [facility] Last Admin: 10/12/18 21:23 Dose: 40 mg Vitamin A (Vitamin A & D Oint Ud Foilpak) 1 ea TOP Q6 PRN PRN Reason: for dry lips Last Admin: 10/08/18 21:43 Dose: 1 ea - Labs Labs: 10/13/18 05:42 10/13/18 05:42 PT 12.0 SECONDS (9.7-12.2) 10/07/18 16:00 INR 1.1 10/07/18 16:00 APTT 58 SECONDS (21-34) H 10/13/18 05:42 - Additional Findings Additional findings: - Constitutional Appears: No Acute Distress - Head Exam Head Exam: NORMAL INSPECTION, NORMOCEPHALIC - Eye Exam Eye Exam: EOMI, Normal appearance, PERRL - ENT Exam ENT Exam: Mucous Membranes Moist - Respiratory Exam Respiratory Exam: Clear to Ausculation Bilateral, NORMAL BREATHING PATTERN. absent: Decreased Breath Sounds, Wheezes - Cardiovascular Exam Cardiovascular Exam: +S1, +S2. absent: Irregular Rhythm, Murmur - GI/Abdominal Exam GI & Abdominal Exam: Soft, Normal Bowel Sounds. absent: Distended, Tenderness - Neurological Exam Neurological Exam: Alert, Awake, Oriented x3 - Psychiatric Exam Psychiatric exam: Normal Affect, Normal Mood - Skin Skin Exam: Dry, Intact, Normal Color, Warm Assessment and Plan - Assessment and Plan (Free Text) Plan: NSTEMI GI Bleed S/P Open Appendectomy Hx hypertension, type 2 diabetes, hyperlipidemia, CAD, moderate , PAD, PVD Imaging: -S/P Cardiac Catherization 08/2018: L Main: Mild calcific disease, LAD: Proximal 90% calcific disease, L Cx: Mild disease, RCA: Ostial calcific 90% stenosis, EF: 60%, moderate . Due to her fragility, severe lung disease she is high risk for PCI/atherectomy or CABG. Not a candidate at this time. Management: - Experienced chest pain 10/12, repeat troponins elevated - In light of GI bleed, start Heparin drip, closely monitor H/H - Currently on Tridil drip - When stable, can resume ASA 81mg Case discussed with Shavon Aceves DO, PGY2 <Alejo Logan - Last Filed: 10/13/18 22:15> Objective - Vital Signs/Intake and Output Vital Signs (last 24 hours): Temp Pulse Resp BP Pulse Ox 98.4 F 87 20 146/61 96 10/13/18 20:00 10/13/18 21:30 10/13/18 21:30 10/13/18 21:30 10/13/18 21:30 Intake and Output: 10/13/18 10/14/18 18:59 06:59 Intake Total 1855.8 114.8 Output Total 1050 Balance 805.8 114.8 - Medications Medications: Current Medications Acetaminophen (Tylenol 325mg Tab) 650 mg PO Q6 PRN PRN Reason: Fever >100.4 F Last Admin: 10/09/18 06:37 Dose: 650 mg Dextrose (Dextrose 50% Inj) 0 ml IV STAT PRN; Protocol PRN Reason: Hypoglycemia Protocol Dextrose (Glutose 15) 0 gm PO ONCE PRN; Protocol PRN Reason: Hypoglycemia Protocol Furosemide (Lasix) 20 mg IVP DAILY [facility] Last Admin: 10/13/18 10:51 Dose: 20 mg Glucagon (Glucagen Diagnostic Kit) 0 mg IM STAT PRN; Protocol PRN Reason: Hypoglycemia Protocol Hydromorphone HCl (Dilaudid) 0.5 mg IVP Q4H PRN PRN Reason: Pain, moderate (4-7) Last Admin: 10/13/18 19:45 Dose: 0.5 mg Ciprofloxacin (Cipro 400mg/200ml Dsw) 400 mg in 200 mls @ 133 mls/hr IVPB Q12H [facility]; Protocol Last Admin: 10/13/18 09:30 Dose: 133 mls/hr Metronidazole (Flagyl) 500 mg in 100 mls @ 100 mls/hr IVPB Q8H [facility]; Protocol Last Admin: 10/13/18 14:48 Dose: 100 mls/hr Heparin Sodium/Sodium Chloride (Heparin 16359 Units/250ml 1/2 Normal Saline) 25,000 units in 250 mls @ 7.435 mls/hr IV .Q24H PRN; Protocol PRN Reason: PROTOCOL Last Admin: 10/13/18 17:25 Dose: 12 units/kg/hr, 7.435 mls/hr Insulin Aspart (Novolog) 0 unit SC Q6H [facility]; Protocol Last Admin: 10/13/18 17:50 Dose: 2 units Metoprolol Tartrate (Lopressor) 5 mg IVP Q6 [facility] Last Admin: 10/13/18 17:24 Dose: 5 mg Nitroglycerin (Nitro-Bid 2% Oint) 1 ea TOP Q6H [facility] Stop: 10/15/18 11:01 Last Admin: 10/13/18 17:24 Dose: 1 ea Ondansetron HCl (Zofran Inj) 4 mg IVP Q4H PRN PRN Reason: Nausea/Vomiting Pantoprazole Sodium (Protonix Inj) 40 mg IVP Q12H [facility] Last Admin: 10/13/18 10:51 Dose: 40 mg Vitamin A (Vitamin A & D Oint Ud Foilpak) 1 ea TOP Q6 PRN PRN Reason: for dry lips Last Admin: 10/08/18 21:43 Dose: 1 ea - Labs Labs: 10/13/18 05:42 10/13/18 05:42 PT 12.0 SECONDS (9.7-12.2) 10/07/18 16:00 INR 1.1 10/07/18 16:00 APTT 58 SECONDS (21-34) H 10/13/18 05:42 Assessment and Plan - Assessment and Plan (Free Text) Plan: patient seen and evaluated personally by me Plan of care d/w the medical staff manager and as documented Moderate to high risk for cardiac events for Endo/Colonoscopy under conscious sedation Due to the need of GI work up prior to PCI recommend to proceed with the GI work up d/w the family and the patient who agreed for the procedure
[2018-10-13] MEDS: Ciprofloxacin 400mg/200ml D5W 400 MG/200 ML BAG IVPB SCH ×2 (09:30→21:29)
--- NOTE | 2018-10-13 10:11 | CP.PCM.PN ---
<Primo Dsouza - Last Filed: 10/13/18 10:08> Subjective - Date & Time of Evaluation Date of Evaluation: 10/13/18 Time of Evaluation: 06:45 - Subjective Subjective: PGY-4 GI Fellow Prog Note Pt lying in bed when seen this AM. States CP/SOB improved this AM, started on heparin gtt and nitro yesterday. States she is burping but denied flatus per rectum. Abd pain improved and plans to get OOB later. 5 point ROS negative other than stated above Objective - Vital Signs/Intake and Output Vital Signs (last 24 hours): Temp Pulse Resp BP Pulse Ox 98.8 F 97 H 22 156/59 H 99 10/13/18 08:00 10/13/18 08:00 10/13/18 08:00 10/13/18 07:31 10/13/18 08:00 Intake and Output: 10/13/18 10/13/18 06:59 18:59 Intake Total 1554.6 110.4 Output Total 600 Balance 954.6 110.4 - Medications Medications: Current Medications Acetaminophen (Tylenol 325mg Tab) 650 mg PO Q6 PRN PRN Reason: Fever >100.4 F Last Admin: 10/09/18 06:37 Dose: 650 mg Dextrose (Dextrose 50% Inj) 0 ml IV STAT PRN; Protocol PRN Reason: Hypoglycemia Protocol Dextrose (Glutose 15) 0 gm PO ONCE PRN; Protocol PRN Reason: Hypoglycemia Protocol Furosemide (Lasix) 20 mg IVP DAILY JOSE ANTONIO Last Admin: 10/12/18 09:25 Dose: 20 mg Glucagon (Glucagen Diagnostic Kit) 0 mg IM STAT PRN; Protocol PRN Reason: Hypoglycemia Protocol Hydromorphone HCl (Dilaudid) 0.5 mg IVP Q4H PRN PRN Reason: Pain, moderate (4-7) Last Admin: 10/13/18 09:19 Dose: 0.5 mg Ciprofloxacin (Cipro 400mg/200ml Dsw) 400 mg in 200 mls @ 133 mls/hr IVPB Q12H JOSE ANTONIO; Protocol Last Admin: 10/12/18 21:25 Dose: 133 mls/hr Metronidazole (Flagyl) 500 mg in 100 mls @ 100 mls/hr IVPB Q8H JOSE ANTONIO; Protocol Last Admin: 10/13/18 05:41 Dose: 100 mls/hr Heparin Sodium/Sodium Chloride (Heparin 89232 Units/250ml 1/2 Normal Saline) 25,000 units in 250 mls @ 7.435 mls/hr IV .Q24H PRN; Protocol PRN Reason: PROTOCOL Last Admin: 10/12/18 12:07 Dose: 12 units/kg/hr, 7.435 mls/hr Potassium Phosphate 30 mmole/ (Sodium Chloride) 260 mls @ 42.5 mls/hr IVPB ONCE ONE Stop: 10/13/18 14:09 Last Admin: 10/13/18 09:02 Dose: 42.5 mls/hr Potassium Chloride (Potassium Chloride 10 Meq/100 Ml) 10 meq in 100 mls @ 100 mls/hr IVPB Q1H JOSE ANTONIO Stop: 10/13/18 11:14 Insulin Aspart (Novolog) 0 unit SC Q6H JOSE ANTONIO; Protocol Last Admin: 10/13/18 05:58 Dose: Not Given Metoprolol Tartrate (Lopressor) 5 mg IVP Q6H JOSE ANTONIO Nitroglycerin (Nitro-Bid 2% Oint) 1 ea TOP Q6H JOSE ANTONIO Stop: 10/15/18 10:15 Ondansetron HCl (Zofran Inj) 4 mg IVP Q4H PRN PRN Reason: Nausea/Vomiting Pantoprazole Sodium (Protonix Inj) 40 mg IVP Q12H JOSE ANTONIO Last Admin: 10/12/18 21:23 Dose: 40 mg Vitamin A (Vitamin A & D Oint Ud Foilpak) 1 ea TOP Q6 PRN PRN Reason: for dry lips Last Admin: 10/08/18 21:43 Dose: 1 ea - Labs Labs: 10/13/18 05:42 10/13/18 05:42 PT 12.0 SECONDS (9.7-12.2) 10/07/18 16:00 INR 1.1 10/07/18 16:00 APTT 58 SECONDS (21-34) H 10/13/18 05:42 - Constitutional Appears: Well, No Acute Distress - Head Exam Head Exam: ATRAUMATIC, NORMAL INSPECTION - Eye Exam Eye Exam: EOMI. absent: Scleral icterus - ENT Exam ENT Exam: Mucous Membranes Dry. absent: Mucous Membranes Moist - GI/Abdominal Exam GI & Abdominal Exam: Distended, Soft, Tenderness (ttp diffusely), Hypoactive Bowel Sounds. absent: Bruit, Firm, Guarding, Rigid, Mass, Normal Bowel Sounds, Organomegaly, Pulsatile Mass Additional comments: midline surgical site with dejan in place Assessment and Plan - Assessment and Plan (Free Text) Assessment: 73 yo BF with h/o Tob Abuse, CAD, diverticulitis s/p colon resection presenting with abd pain and black stools. # Abd pain: Suspect related to acute appendicitis seen on CT, POD# 3 from appendectomy and lysis of adhesions 10/08/18. # Melena: Unclear exact cause of melena but on DAPT placing at risk for PUD. Perhaps bleeding R sided colon lesion as had h/o R sided colitis earlier this year w/o f/u CSPY despite being recommended. Also at risk for anastamotic bleed given h/o colonic resection. Hgb stable after PRBC transfusions and no reports/signs of bleeding. # Acute on Chronic Anemia: Hgb 7.7 from about 9 baseline. Perhaps related melena and upper GI or slow right sided colon source. s/p 3 units PRBCs with good response after admission (2 units), then post op (1 unit) # Splenic lesion: Unclear etiology. Pt denied any weight loss or other red flag symptoms other than black stools prior to admission to suggest possible bleeding. # CAD: NSTEMI during this admission. Treated medically at this time. Last clopiodgrel and ASA 10/07 Plan: - Discuss with Cardiology and Gen Surg regarding possible EGD on 10/14 to evaluate reported melena and anemia --- Pt is moderate to high risk, but need evaluation prior to likely stent placement and DAPT --- Plan for EGD 10/14 --- Heparin gtt to be held at 0700 on 10/14 --- Likely plan on outpatient CSPY - Diet, IVF, bowel regimen and Abx per surgery - Cont PPI IV BID - Clopidogrel and ASA held since at least 10/08 - Monitor Hgb Thank you for the consult; will continue to follow. Pt seen and examined with Dr. Betancur; see attestation for further recs/changes. Primo Dsouza, PGY-4 <Titus Betancur - Last Filed: 10/13/18 11:42> Objective - Vital Signs/Intake and Output Vital Signs (last 24 hours): Temp Pulse Resp BP Pulse Ox 98.8 F 97 H 22 144/48 L 99 10/13/18 08:00 10/13/18 08:00 10/13/18 08:00 10/13/18 10:51 10/13/18 08:00 Intake and Output: 10/13/18 10/13/18 06:59 18:59 Intake Total 1554.6 110.4 Output Total 600 Balance 954.6 110.4 - Medications Medications: Current Medications Acetaminophen (Tylenol 325mg Tab) 650 mg PO Q6 PRN PRN Reason: Fever >100.4 F Last Admin: 10/09/18 06:37 Dose: 650 mg Dextrose (Dextrose 50% Inj) 0 ml IV STAT PRN; Protocol PRN Reason: Hypoglycemia Protocol Dextrose (Glutose 15) 0 gm PO ONCE PRN; Protocol PRN Reason: Hypoglycemia Protocol Furosemide (Lasix) 20 mg IVP DAILY JOSE ANTONIO Last Admin: 10/13/18 10:51 Dose: 20 mg Glucagon (Glucagen Diagnostic Kit) 0 mg IM STAT PRN; Protocol PRN Reason: Hypoglycemia Protocol Hydromorphone HCl (Dilaudid) 0.5 mg IVP Q4H PRN PRN Reason: Pain, moderate (4-7) Last Admin: 10/13/18 09:19 Dose: 0.5 mg Ciprofloxacin (Cipro 400mg/200ml Dsw) 400 mg in 200 mls @ 133 mls/hr IVPB Q12H JOSE ANTONIO; Protocol Last Admin: 10/13/18 09:30 Dose: 133 mls/hr Metronidazole (Flagyl) 500 mg in 100 mls @ 100 mls/hr IVPB Q8H JOSE ANTONIO; Protocol Last Admin: 10/13/18 05:41 Dose: 100 mls/hr Heparin Sodium/Sodium Chloride (Heparin 10770 Units/250ml 1/2 Normal Saline) 25,000 units in 250 mls @ 7.435 mls/hr IV .Q24H PRN; Protocol PRN Reason: PROTOCOL Last Admin: 10/12/18 12:07 Dose: 12 units/kg/hr, 7.435 mls/hr Potassium Phosphate 30 mmole/ (Sodium Chloride) 260 mls @ 42.5 mls/hr IVPB ONCE ONE Stop: 10/13/18 14:09 Last Admin: 10/13/18 09:02 Dose: 42.5 mls/hr Potassium Chloride (Potassium Chloride 10 Meq/100 Ml) 10 meq in 100 mls @ 100 mls/hr IVPB Q1H JOSE ANTONIO Stop: 10/13/18 12:44 Last Admin: 10/13/18 10:53 Dose: 100 mls/hr Insulin Aspart (Novolog) 0 unit SC Q6H JOSE ANTONIO; Protocol Last Admin: 10/13/18 05:58 Dose: Not Given Metoprolol Tartrate (Lopressor) 5 mg IVP Q6 JOSE ANTONIO Last Admin: 10/13/18 10:51 Dose: 5 mg Nitroglycerin (Nitro-Bid 2% Oint) 1 ea TOP Q6H JOSE ANTONIO Stop: 10/15/18 11:01 Last Admin: 10/13/18 10:52 Dose: 1 ea Ondansetron HCl (Zofran Inj) 4 mg IVP Q4H PRN PRN Reason: Nausea/Vomiting Pantoprazole Sodium (Protonix Inj) 40 mg IVP Q12H JOSE ANTONIO Last Admin: 10/13/18 10:51 Dose: 40 mg Vitamin A (Vitamin A & D Oint Ud Foilpak) 1 ea TOP Q6 PRN PRN Reason: for dry lips Last Admin: 10/08/18 21:43 Dose: 1 ea - Labs Labs: 10/13/18 05:42 10/13/18 05:42 PT 12.0 SECONDS (9.7-12.2) 10/07/18 16:00 INR 1.1 10/07/18 16:00 APTT 58 SECONDS (21-34) H 10/13/18 05:42 Attending/Attestation - Attestation I have personally seen and examined this patient.: Yes I have fully participated in the care of the patient.: Yes I have reviewed all pertinent clinical information, including history, physical exam and plan: Yes Notes (Text): 10/13/18 11:40 I have seen and examined patient with GI fellow. No acute events overnight, she is seen resting comfortably in bed. Chest pain has resolved, she complains of mild abdominal pain at surgical site but otherwise denies nausea, vomiting, fever/chills. No flatus or bowel movement thus far. CAD History of partial colon resection Anemia Abdominal pain, acute appendicitis s/p appendectomy - NPO - Continue with antibiotic therapy as per medical team - Follow up cardiology recommendations - H/H stable, continue to monitor - Continue with PPI therapy - Given anemia with prior episodes of melena and need for patient to be on antiplatelet cardiac medication, will plan for EGD tomorrow to rule out peptic ulcer disease. Case was discussed with cardiac and surgical teams.
[2018-10-13] MEDS: Nitroglycerin 2% Ointment Foilpak UD TOP SCH ×3 (10:52→23:30)
[2018-10-13] MEDS ORDERED: Metoprolol 1 mg/ml Inj IVP SCH (11:00)
--- NOTE | 2018-10-13 12:30 | CP.PCM.PN ---
Subjective - Date & Time of Evaluation Date of Evaluation: 10/13/18 Time of Evaluation: 12:25 - Subjective Subjective: General Surgery Consult Note for Dr. Rankin This 73F was seen and examined this AM at bedside. No acute events reported overnight. She is still not passing gas or moving her bowels.however pain is improving. She reports she is going for a c-scope tomorrow pain is improving. No new complaints overnight. Objective - Vital Signs/Intake and Output Vital Signs (last 24 hours): Temp Pulse Resp BP Pulse Ox 97.6 F 86 20 142/41 L 100 10/13/18 12:00 10/13/18 12:00 10/13/18 12:00 10/13/18 11:30 10/13/18 12:00 Intake and Output: 10/13/18 10/13/18 06:59 18:59 Intake Total 1554.6 776.5 Output Total 600 200 Balance 954.6 576.5 - Medications Medications: Current Medications Acetaminophen (Tylenol 325mg Tab) 650 mg PO Q6 PRN PRN Reason: Fever >100.4 F Last Admin: 10/09/18 06:37 Dose: 650 mg Dextrose (Dextrose 50% Inj) 0 ml IV STAT PRN; Protocol PRN Reason: Hypoglycemia Protocol Dextrose (Glutose 15) 0 gm PO ONCE PRN; Protocol PRN Reason: Hypoglycemia Protocol Furosemide (Lasix) 20 mg IVP DAILY JOSE ANTONIO Last Admin: 10/13/18 10:51 Dose: 20 mg Glucagon (Glucagen Diagnostic Kit) 0 mg IM STAT PRN; Protocol PRN Reason: Hypoglycemia Protocol Hydromorphone HCl (Dilaudid) 0.5 mg IVP Q4H PRN PRN Reason: Pain, moderate (4-7) Last Admin: 10/13/18 09:19 Dose: 0.5 mg Ciprofloxacin (Cipro 400mg/200ml Dsw) 400 mg in 200 mls @ 133 mls/hr IVPB Q12H JOSE ANTONIO; Protocol Last Admin: 10/13/18 09:30 Dose: 133 mls/hr Metronidazole (Flagyl) 500 mg in 100 mls @ 100 mls/hr IVPB Q8H JOSE ANTONIO; Protocol Last Admin: 10/13/18 05:41 Dose: 100 mls/hr Heparin Sodium/Sodium Chloride (Heparin 51833 Units/250ml 1/2 Normal Saline) 25,000 units in 250 mls @ 7.435 mls/hr IV .Q24H PRN; Protocol PRN Reason: PROTOCOL Last Admin: 10/12/18 12:07 Dose: 12 units/kg/hr, 7.435 mls/hr Potassium Phosphate 30 mmole/ (Sodium Chloride) 260 mls @ 42.5 mls/hr IVPB ONCE ONE Stop: 10/13/18 14:09 Last Admin: 10/13/18 09:02 Dose: 42.5 mls/hr Potassium Chloride (Potassium Chloride 10 Meq/100 Ml) 10 meq in 100 mls @ 100 mls/hr IVPB Q1H JOSE ANTONIO Stop: 10/13/18 12:44 Last Admin: 10/13/18 10:53 Dose: 100 mls/hr Insulin Aspart (Novolog) 0 unit SC Q6H JOSE ANTONIO; Protocol Last Admin: 10/13/18 05:58 Dose: Not Given Metoprolol Tartrate (Lopressor) 5 mg IVP Q6 JOSE ANTONIO Nitroglycerin (Nitro-Bid 2% Oint) 1 ea TOP Q6H JOSE ANTONIO Stop: 10/15/18 11:01 Last Admin: 10/13/18 10:52 Dose: 1 ea Ondansetron HCl (Zofran Inj) 4 mg IVP Q4H PRN PRN Reason: Nausea/Vomiting Pantoprazole Sodium (Protonix Inj) 40 mg IVP Q12H JOSE ANTONIO Last Admin: 10/13/18 10:51 Dose: 40 mg Vitamin A (Vitamin A & D Oint Ud Foilpak) 1 ea TOP Q6 PRN PRN Reason: for dry lips Last Admin: 10/08/18 21:43 Dose: 1 ea - Labs Labs: 10/13/18 05:42 10/13/18 05:42 PT 12.0 SECONDS (9.7-12.2) 10/07/18 16:00 INR 1.1 10/07/18 16:00 APTT 58 SECONDS (21-34) H 10/13/18 05:42 - Constitutional Appears: Non-toxic, No Acute Distress - Head Exam Head Exam: ATRAUMATIC, NORMOCEPHALIC - Eye Exam Eye Exam: EOMI - ENT Exam ENT Exam: Mucous Membranes Moist - Respiratory Exam Respiratory Exam: NORMAL BREATHING PATTERN - Cardiovascular Exam Cardiovascular Exam: +S1, +S2 - GI/Abdominal Exam GI & Abdominal Exam: Soft, Tenderness. absent: Distended, Firm, Guarding, Rigid Additional comments: Jesus in place, wound well approximated non draining - Extremities Exam Extremities Exam: Normal Inspection - Neurological Exam Neurological Exam: Alert, Awake - Psychiatric Exam Psychiatric exam: Normal Affect, Normal Mood - Skin Skin Exam: Dry, Intact Assessment and Plan - Assessment and Plan (Free Text) Assessment: 73F POD#5 s/p open appendectomy with extensive adhesiolysis OK to advance diet Pain medication out of bed further recs per Dr. Chucho Ayers PGY3
[2018-10-13] MEDS: Heparin25000 units/250ml 1/2NS 25,000 UNITS/250 ML BAG IV PRN (17:25)
[2018-10-14] MEDS: (Novolog) Insulin Aspart, Recombinant 100 u/ml 10 ml vial SC SCH ×5 (00:28→21:01)
[2018-10-14] MEDS: Metoprolol 1 mg/ml Inj IVP SCH ×5 (00:30→23:57)
--- NOTE | 2018-10-14 03:30 | PN ---
DATE: 10/13/2018 SUBJECTIVE: The patient is seen today, 10/13/2018. She is more awake and alert and less short of breath. PHYSICAL EXAMINATION: VITAL SIGNS: Blood pressure is 144/55, temperature 98.2, respiratory rate 20, and pulse 85. HEENT: Pupils equal, reactive to light. Normal-appearing mucosa of the conjunctivae, oropharynx and nasal membrane mucosa. NECK: Supple. No JVD. No carotid bruit. No lymph node. No thyromegaly. CHEST AND LUNGS: Bilateral symmetrical expansion. Good air exchange. No rales, no rhonchi. CARDIOVASCULAR SYSTEM: PMI not localized. S1, S2. No additional sounds. ABDOMEN: Normoactive bowel sounds. No tenderness. No organomegaly. No masses. EXTREMITIES: No cyanosis, no clubbing, no edema. CENTRAL NERVOUS SYSTEM: Alert, awake, oriented x2. No neurological deficit could be appreciated. ASSESSMENT: 1. Postoperative day #5 status post appendectomy and lysis of adhesions. 2. History of chronic obstructive pulmonary disease. 3. Hypertension. 4. Coronary artery disease. PLAN: Continue current antibiotics treating colitis shown in the CAT scan. Follow surgical recommendations. Replenish electrolytes. Discussed the patient's condition with the bellmaker. Kd Ledesma MD
[2018-10-14] MEDS: HYDROmorphone 0.5 mg/0.5 ml ISec IVP PRN ×2 (03:36→14:45)
[2018-10-14] MEDS: metroNIDAZOLE IV 500 mg/100 ml 500 MG/100 ML BAG IVPB SCH ×3 (05:39→21:00)
[2018-10-14] MEDS: Nitroglycerin 2% Ointment Foilpak UD TOP SCH ×4 (05:42→22:58)
[2018-10-14 06:17] LABS: BASO % 0.3 % (0.0-2.0); EOS # 0.2 K/uL (0.0-0.7); EOS % 1.4 % (0.0-4.0); HEMOGLOBIN 10.2 g/dL (11.0-16.0); LYMPH # 0.8 K/uL (1.0-4.3); MEAN CELL VOLUME 90.3 fL (81.0-99.0); MEAN CORPUSCULAR HEMOGLOBIN 30.4 pg (27.0-31.0); MEAN CORPUSCULAR HGB CONC 33.7 g/dL (33.0-37.0); MEAN PLATELET VOLUME 8.4 fL (7.2-11.7); MONO # 1.1 K/uL (0.0-0.8); MONO % 8.4 % (0.0-10.0); NEUT # 11.3 K/uL (1.8-7.0); NEUT % 83.9 % (50.0-75.0); NRBC % 0.1 % (0.0-2.0); PLATELET COUNT 255 K/uL (130-400); RBC 3.35 Mil/uL (3.80-5.20); RED CELL DISTRIBUTION WIDTH 16.2 % (11.5-14.5); WHITE BLOOD COUNT 13.5 K/uL (4.8-10.8)
[2018-10-14 06:33] LABS: ALB/GLOB RATIO 1.1 (1.0-2.1); ALBUMIN 3.1 g/dL (3.5-5.0); ALT/SGPT 17 U/L (9-52); AST/SGOT 18 U/L (14-36); BLOOD UREA NITROGEN 10 mg/dL (7-17); CALCIUM 8.6 mg/dl (8.6-10.4); GFR NON-AFRICAN AMERICAN > 60
[2018-10-14 06:46] LABS: INR 1.5; PROTHROMBIN TIME 16.5 SECONDS (9.7-12.2)
[2018-10-14] MEDS ORDERED: Potassium Ch 20mEq in D5-1/2NS 1,000 ML IV SCH (07:00)
[2018-10-14 08:08] LABS: EOSINOPHIL 1 % (0-4); LYMPHOCYTE 5 % (20-40); MONOCYTE 8 % (0-10); NEUTROPHIL 86 % (50-75); PLATELET ESTIMATE NORMAL (NORMAL); TOTAL CELLS COUNTED 100
[2018-10-14 08:09] LABS: ANISOCYTOSIS SLIGHT; HYPOCHROMIC SLIGHT; POLYCHROMIC SLIGHT
[2018-10-14] MEDS: Ciprofloxacin 400mg/200ml D5W 400 MG/200 ML BAG IVPB SCH ×2 (09:00→20:57)
[2018-10-14] MEDS ORDERED: Potassium Ch 20mEq in D5W 1,000 ML IV SCH (09:00)
--- NOTE | 2018-10-14 09:16 | CP.CCUPN ---
CCU Subjective - Physician Review Subjective (Free Text): 10/14/18 09:13 Stephanie Santana PGY1 Progress note for Dr. Singh Pt was examined at bedside this morning. Pt reported some abdominal pain early this morning that she described as a gas like pain that has since resolved. Pt reports passing flatus, but denies bowel movement. Pt reports being able to tolerate clear liquids yesterday without any nausea or vomiting. Pt denies fever, chills, chest pain, shortnes of breath, dysuria. CCU Objective - Vital Signs / Intake & Output Vital Signs (Last 4 hours): Vital Signs Pulse Resp BP Pulse Ox 10/14/18 09:02 148/59 L 10/14/18 07:32 84 18 124/48 L 100 10/14/18 07:00 81 19 100 10/14/18 06:31 90 23 151/61 H 62 L 10/14/18 06:00 94 H 21 100 10/14/18 05:30 84 18 144/56 L 100 Intake and Output (Last 8hrs): Intake & Output 10/13/18 10/14/18 10/14/18 22:59 06:59 14:59 Intake Total 1051.7 259.2 0 Output Total 250 200 Balance 801.7 59.2 0 Weight 138 lb 6 oz Intake: IV 250 Intake, IV Amount 301.7 259.2 0 Right Hand 0 Right Upper arm 100 200 Right Wrist 59.2 59.2 0 Right hand #2 42.5 right wrist 100 Oral 500 Output: Urine 250 200 Urine, Voided 250 200 Other: # Voids Urine, Voided 300 # Bowel Movements 0 0 - Physical Exam Head: Positive for: Atraumatic, Normocephalic Pupils: Positive for: PERRL Extroacular Muscles: Positive for: EOMI Conjunctiva: Positive for: Normal Mouth: Positive for: Moist Mucous Membranes Respiratory/Chest: Positive for: Decreased Breath Sounds. Negative for: Respiratory Distress, Accessory Muscle Use, Wheezes, Rales, Rhonchi Cardiovascular: Positive for: Murmurs, Normal S1, S2, Irregular Rhythm Abdomen: Positive for: Other (surgical site in midline of abdomen clean, dry, intact. hypoactive bowel sounds). Negative for: Tenderness, Distention, Peritoneal Signs Upper Extremity: Positive for: Normal Inspection. Negative for: Cyanosis, Edema Lower Extremity: Positive for: Normal Inspection. Negative for: Edema Neurological: Positive for: GCS=15, CN II-XII Intact, Speech Normal Skin: Positive for: Normal Color Psychiatric: Positive for: Alert, Oriented x 3 - Medications Active Medications: Active Medications Generic Name Dose Route Start Last Admin Trade Name Freq PRN Reason Stop Dose Admin Acetaminophen 650 mg 10/09/18 06:14 10/09/18 06:37 Tylenol 325mg Tab PO 650 mg Q6 PRN Administration Fever >100.4 F Dextrose 0 ml 10/07/18 22:01 Dextrose 50% Inj IV STAT PRN Hypoglycemia Protocol Protocol Dextrose 0 gm 10/07/18 22:01 Glutose 15 PO ONCE PRN Hypoglycemia Protocol Protocol Furosemide 20 mg 10/11/18 10:00 10/14/18 09:02 Lasix IVP 20 mg DAILY JOSE ANTONIO Administration Glucagon 0 mg 10/07/18 22:01 Glucagen Diagnostic Kit IM STAT PRN Hypoglycemia Protocol Protocol Hydromorphone HCl 0.5 mg 10/08/18 18:01 10/14/18 03:36 Dilaudid IVP 0.5 mg Q4H PRN Administration Pain, moderate (4-7) Ciprofloxacin 400 mg in 200 mls @ 133 mls/hr 10/11/18 21:00 10/14/18 09:00 Cipro 400mg/200ml Dsw IVPB 133 mls/hr Q12H JOSE ANTONIO Administration Protocol Metronidazole 500 mg in 100 mls @ 100 mls/hr 10/11/18 22:00 10/14/18 05:39 Flagyl IVPB 100 mls/hr Q8H JOSE ANTONIO Administration Protocol Magnesium Sulfate/Dextrose 1 gm in 100 mls @ 200 mls/hr 10/14/18 09:30 Magnesium Sulfate 1 Gm/100 Ml D5w IVPB 10/14/18 09:59 ONCE ONE Potassium Chloride 20 meq in 100 mls @ 50 mls/hr 10/14/18 10:00 Potassium Chloride 20 Meq/100 Ml IVPB 10/14/18 11:59 ONCE ONE Insulin Aspart 0 unit 10/09/18 00:00 10/14/18 06:21 Novolog SC Not Given Q6H JOSE ANTONIO Protocol Metoprolol Tartrate 5 mg 10/13/18 18:00 10/14/18 05:42 Lopressor IVP 5 mg Q6 JOSE ANTONIO Administration Nitroglycerin 1 ea 10/13/18 11:00 10/14/18 05:42 Nitro-Bid 2% Oint TOP 10/15/18 11:01 1 ea Q6H JOSE ANTONIO Administration Ondansetron HCl 4 mg 10/07/18 22:25 Zofran Inj IVP Q4H PRN Nausea/Vomiting Pantoprazole Sodium 40 mg 10/07/18 22:00 10/14/18 09:02 Protonix Inj IVP 40 mg Q12H JOSE ANTONIO Administration Vitamin A 1 ea 10/08/18 20:00 10/08/18 21:43 Vitamin A & D Oint Ud Foilpak TOP 1 ea Q6 PRN Administration for dry lips - Patient Studies Lab Studies: Microbiology Studies 10/12/18 00:30 Blood Culture - Preliminary Blood-Venous NO GROWTH AFTER 48 HOURS 10/12/18 00:30 Blood Culture - Preliminary Blood-Venous NO GROWTH AFTER 48 HOURS Lab Studies 10/14/18 10/14/18 10/14/18 Range/Units 06:09 06:09 06:09 WBC 13.5 H (4.8-10.8) K/uL RBC 3.35 L (3.80-5.20) Mil/uL Hgb 10.2 L (11.0-16.0) g/dL Hct 30.3 L (34.0-47.0) % MCV 90.3 (81.0-99.0) fL MCH 30.4 (27.0-31.0) pg MCHC 33.7 (33.0-37.0) g/dL RDW 16.2 H (11.5-14.5) % Plt Count 255 (130-400) K/uL MPV 8.4 (7.2-11.7) fL Neut % (Auto) 83.9 H (50.0-75.0) % Lymph % (Auto) 6.0 L (20.0-40.0) % Woods % (Auto) 8.4 (0.0-10.0) % Eos % (Auto) 1.4 (0.0-4.0) % Baso % (Auto) 0.3 (0.0-2.0) % Neut # (Auto) 11.3 H (1.8-7.0) K/uL Lymph # (Auto) 0.8 L (1.0-4.3) K/uL Woods # (Auto) 1.1 H (0.0-0.8) K/uL Eos # (Auto) 0.2 (0.0-0.7) K/uL Baso # (Auto) 0.0 (0.0-0.2) K/uL Neutrophils % (Manual) 86 H (50-75) % Lymphocytes % (Manual) 5 L (20-40) % Monocytes % (Manual) 8 (0-10) % Eosinophils % (Manual) 1 (0-4) % Platelet Estimate Normal (NORMAL) Polychromasia Slight Hypochromasia (manual) Slight Anisocytosis (manual) Slight PT 16.5 H (9.7-12.2) SECONDS INR 1.5 APTT 51 H D (21-34) SECONDS Sodium 139 (132-148) mmol/L Potassium 3.4 L (3.6-5.2) mmol/L Chloride 104 (98-107) mmol/L Carbon Dioxide 25 (22-30) mmol/L Anion Gap 13 (10-20) BUN 10 (7-17) mg/dL Creatinine 0.6 L (0.7-1.2) mg/dL Est GFR ( Amer) > 60 Est GFR (Non-Af Amer) > 60 POC Glucose (mg/dL) (65-110) mg/dL Random Glucose 176 H (65-105) mg/dL Calcium 8.6 (8.6-10.4) mg/dl Phosphorus 3.3 (2.5-4.5) mg/dL Magnesium 1.6 (1.6-2.3) mg/dL Total Bilirubin 0.5 (0.2-1.3) mg/dL AST 18 (14-36) U/L ALT 17 (9-52) U/L Alkaline Phosphatase 65 (38-126) U/L Total Protein 5.9 L (6.3-8.3) g/dL Albumin 3.1 L (3.5-5.0) g/dL Globulin 2.7 (2.2-3.9) gm/dL Albumin/Globulin Ratio 1.1 (1.0-2.1) 10/14/18 10/13/18 10/13/18 Range/Units 05:53 23:10 17:44 WBC (4.8-10.8) K/uL RBC (3.80-5.20) Mil/uL Hgb (11.0-16.0) g/dL Hct (34.0-47.0) % MCV (81.0-99.0) fL MCH (27.0-31.0) pg MCHC (33.0-37.0) g/dL RDW (11.5-14.5) % Plt Count (130-400) K/uL MPV (7.2-11.7) fL Neut % (Auto) (50.0-75.0) % Lymph % (Auto) (20.0-40.0) % Woods % (Auto) (0.0-10.0) % Eos % (Auto) (0.0-4.0) % Baso % (Auto) (0.0-2.0) % Neut # (Auto) (1.8-7.0) K/uL Lymph # (Auto) (1.0-4.3) K/uL Woods # (Auto) (0.0-0.8) K/uL Eos # (Auto) (0.0-0.7) K/uL Baso # (Auto) (0.0-0.2) K/uL Neutrophils % (Manual) (50-75) % Lymphocytes % (Manual) (20-40) % Monocytes % (Manual) (0-10) % Eosinophils % (Manual) (0-4) % Platelet Estimate (NORMAL) Polychromasia Hypochromasia (manual) Anisocytosis (manual) PT (9.7-12.2) SECONDS INR APTT (21-34) SECONDS Sodium (132-148) mmol/L Potassium (3.6-5.2) mmol/L Chloride (98-107) mmol/L Carbon Dioxide (22-30) mmol/L Anion Gap (10-20) BUN (7-17) mg/dL Creatinine (0.7-1.2) mg/dL Est GFR ( Amer) Est GFR (Non-Af Amer) POC Glucose (mg/dL) 166 H 164 H 216 H (65-110) mg/dL Random Glucose (65-105) mg/dL Calcium (8.6-10.4) mg/dl Phosphorus (2.5-4.5) mg/dL Magnesium (1.6-2.3) mg/dL Total Bilirubin (0.2-1.3) mg/dL AST (14-36) U/L ALT (9-52) U/L Alkaline Phosphatase (38-126) U/L Total Protein (6.3-8.3) g/dL Albumin (3.5-5.0) g/dL Globulin (2.2-3.9) gm/dL Albumin/Globulin Ratio (1.0-2.1) 10/13/18 Range/Units 11:42 WBC (4.8-10.8) K/uL RBC (3.80-5.20) Mil/uL Hgb (11.0-16.0) g/dL Hct (34.0-47.0) % MCV (81.0-99.0) fL MCH (27.0-31.0) pg MCHC (33.0-37.0) g/dL RDW (11.5-14.5) % Plt Count (130-400) K/uL MPV (7.2-11.7) fL Neut % (Auto) (50.0-75.0) % Lymph % (Auto) (20.0-40.0) % Woods % (Auto) (0.0-10.0) % Eos % (Auto) (0.0-4.0) % Baso % (Auto) (0.0-2.0) % Neut # (Auto) (1.8-7.0) K/uL Lymph # (Auto) (1.0-4.3) K/uL Woods # (Auto) (0.0-0.8) K/uL Eos # (Auto) (0.0-0.7) K/uL Baso # (Auto) (0.0-0.2) K/uL Neutrophils % (Manual) (50-75) % Lymphocytes % (Manual) (20-40) % Monocytes % (Manual) (0-10) % Eosinophils % (Manual) (0-4) % Platelet Estimate (NORMAL) Polychromasia Hypochromasia (manual) Anisocytosis (manual) PT (9.7-12.2) SECONDS INR APTT (21-34) SECONDS Sodium (132-148) mmol/L Potassium (3.6-5.2) mmol/L Chloride (98-107) mmol/L Carbon Dioxide (22-30) mmol/L Anion Gap (10-20) BUN (7-17) mg/dL Creatinine (0.7-1.2) mg/dL Est GFR ( Amer) Est GFR (Non-Af Amer) POC Glucose (mg/dL) 239 H (65-110) mg/dL Random Glucose (65-105) mg/dL Calcium (8.6-10.4) mg/dl Phosphorus (2.5-4.5) mg/dL Magnesium (1.6-2.3) mg/dL Total Bilirubin (0.2-1.3) mg/dL AST (14-36) U/L ALT (9-52) U/L Alkaline Phosphatase (38-126) U/L Total Protein (6.3-8.3) g/dL Albumin (3.5-5.0) g/dL Globulin (2.2-3.9) gm/dL Albumin/Globulin Ratio (1.0-2.1) Laboratory Results - last 24 hr 10/13/18 10/13/18 10/13/18 11:42 17:44 23:10 WBC RBC Hgb Hct MCV MCH MCHC RDW Plt Count MPV Neut % (Auto) Lymph % (Auto) Woods % (Auto) Eos % (Auto) Baso % (Auto) Neut # (Auto) Lymph # (Auto) Woods # (Auto) Eos # (Auto) Baso # (Auto) Neutrophils % (Manual) Lymphocytes % (Manual) Monocytes % (Manual) Eosinophils % (Manual) Platelet Estimate Polychromasia Hypochromasia (manual) Anisocytosis (manual) PT INR APTT Sodium Potassium Chloride Carbon Dioxide Anion Gap BUN Creatinine Est GFR ( Amer) Est GFR (Non-Af Amer) POC Glucose (mg/dL) 239 H 216 H 164 H Random Glucose Calcium Phosphorus Magnesium Total Bilirubin AST ALT Alkaline Phosphatase Total Protein Albumin Globulin Albumin/Globulin Ratio 10/14/18 10/14/18 10/14/18 05:53 06:09 06:09 WBC 13.5 H RBC 3.35 L Hgb 10.2 L Hct 30.3 L MCV 90.3 MCH 30.4 MCHC 33.7 RDW 16.2 H Plt Count 255 MPV 8.4 Neut % (Auto) 83.9 H Lymph % (Auto) 6.0 L Woods % (Auto) 8.4 Eos % (Auto) 1.4 Baso % (Auto) 0.3 Neut # (Auto) 11.3 H Lymph # (Auto) 0.8 L Woods # (Auto) 1.1 H Eos # (Auto) 0.2 Baso # (Auto) 0.0 Neutrophils % (Manual) 86 H Lymphocytes % (Manual) 5 L Monocytes % (Manual) 8 Eosinophils % (Manual) 1 Platelet Estimate Normal Polychromasia Slight Hypochromasia (manual) Slight Anisocytosis (manual) Slight PT INR APTT Sodium 139 Potassium 3.4 L Chloride 104 Carbon Dioxide 25 Anion Gap 13 BUN 10 Creatinine 0.6 L Est GFR ( Amer) > 60 Est GFR (Non-Af Amer) > 60 POC Glucose (mg/dL) 166 H Random Glucose 176 H Calcium 8.6 Phosphorus 3.3 Magnesium 1.6 Total Bilirubin 0.5 AST 18 ALT 17 Alkaline Phosphatase 65 Total Protein 5.9 L Albumin 3.1 L Globulin 2.7 Albumin/Globulin Ratio 1.1 10/14/18 06:09 WBC RBC Hgb Hct MCV MCH MCHC RDW Plt Count MPV Neut % (Auto) Lymph % (Auto) Woods % (Auto) Eos % (Auto) Baso % (Auto) Neut # (Auto) Lymph # (Auto) Woods # (Auto) Eos # (Auto) Baso # (Auto) Neutrophils % (Manual) Lymphocytes % (Manual) Monocytes % (Manual) Eosinophils % (Manual) Platelet Estimate Polychromasia Hypochromasia (manual) Anisocytosis (manual) PT 16.5 H INR 1.5 APTT 51 H D Sodium Potassium Chloride Carbon Dioxide Anion Gap BUN Creatinine Est GFR ( Amer) Est GFR (Non-Af Amer) POC Glucose (mg/dL) Random Glucose Calcium Phosphorus Magnesium Total Bilirubin AST ALT Alkaline Phosphatase Total Protein Albumin Globulin Albumin/Globulin Ratio Fingerstick Blood Sugar Results: 166 Review of Systems - Review of Systems Review of Systems: as per HPI Critical Care Progress Note - Nutrition Nutrition: Nutrition Category Date Time Status NPO Diet [DIET] Diets 10/14/18 Breakfast Active Assessment/Plan - Assessment and Plan (Free Text) Assessment: 73yo F with PMH DM, HTN, HLD, CAD, COPD, asthma, arthritis, anxiety, osteoporosis presented to ED with black stool and abdominal pain, found to have acute appendicitis. S/p open appendectomy (prolonged procedure) on 10/08 and NSTEMI, currently being monitored in ICU. Pt experienced chest pain 10/12, now resolved. Passing flatus but no BM as of yet. Pt for EGD today to r/o bleeding. Plan: Neuro - AAOx3 - no focal deficits Cardiovascular - h/o CAD, HTN, HLD - NSTEMI 10/08 - CT chest 10/12: no PE. moderate R sided pleural effusion, small L sided pleural effusion, emphysematous changes. - CXR 10/11: pulmonary venous congestion, CHF improved from previous CXR - ECHO 08/19: normal systolic LV function, normal EF. moderate and AR - lopressor 5mg IVP q6h - lasix 20mg IV daily - nitropaste - maintain normotension - not candidate for CABG/PCI at this time, as per cardio - Cardio consulted, Dr. Desmond abdi appreciated Pulm - h/o COPD, asthma - CT chest 10/12: no PE. moderate R sided pleural effusion, small L sided pleural effusion, emphysematous changes. - CXR 10/11: pulmonary venous congestion, CHF improved from previous CXR - lasix 20mg IV daily - NC - incentive spirometry - maintain SpO2 >92% GI - for EGD today, f/u report to r/o bleed - CT abd/pel 10/11: large fluid in pelvis, small fluid around liver and spleen. small perinephric fluid. colitis in descending colon. edematous wall changes in stomach. air in bladder. large splenic lesion possibly hemangioma. - CT abd/pel 10/07: acute appendicitis, extending from pelvic cecum to retrocecal location in RLQ. - s/p open appendectomy and lysis of adhesions 10/08 - pt has passed flatus, no BM yet - zofran 4mg IVP q4h PRN - protonix 40mg IVP q12h - dilaudid 0.5mg q4h PRN - tylenol 650mg q6h PRN - CLD, advance as tolerated - Gen Sx consulted, Dr. Chucho abdi appreciated - GI consulted, Dr. Pipe abdi appreciated Heme - H/H 10.2/30.3 - s/p 3u PRBC Endo - h/o DM - low dose novolog q6h - accuchecks q6h - hypoglycemia protocol - maintain euglycemic ID - pt afebrile - leukocytosis - BCx neg x5 - cipro 400mg IV q12h - flagyl 500mg IV q8h PPX: GI: protonix 40mg IVP q12h DVT: SCDs CLD Pt seen and case discussed with Dr. Singh
[2018-10-14] MEDS ORDERED: Magnesium Sulfate 1 gm in D5W 1 GM/100 ML BAG IVPB ONE (09:30)
--- NOTE | 2018-10-14 09:44 | CP.PCM.PN ---
Subjective - Date & Time of Evaluation Date of Evaluation: 10/14/18 Time of Evaluation: 06:40 - Subjective Subjective: Surgery Progress note. Dr. Rankin Pt seen and examined at bedside. No acute events overnight. No N/V/D. No F/C. No new complaints. Objective - Vital Signs/Intake and Output Vital Signs (last 24 hours): Temp Pulse Resp BP Pulse Ox 97.8 F 84 18 148/59 L 100 10/14/18 04:00 10/14/18 07:32 10/14/18 07:32 10/14/18 09:02 10/14/18 07:32 Intake and Output: 10/14/18 10/14/18 06:59 18:59 Intake Total 631.4 0 Output Total 200 Balance 431.4 0 - Medications Medications: Current Medications Acetaminophen (Tylenol 325mg Tab) 650 mg PO Q6 PRN PRN Reason: Fever >100.4 F Last Admin: 10/09/18 06:37 Dose: 650 mg Dextrose (Dextrose 50% Inj) 0 ml IV STAT PRN; Protocol PRN Reason: Hypoglycemia Protocol Dextrose (Glutose 15) 0 gm PO ONCE PRN; Protocol PRN Reason: Hypoglycemia Protocol Furosemide (Lasix) 20 mg IVP DAILY JOSE ANTONIO Last Admin: 10/14/18 09:02 Dose: 20 mg Glucagon (Glucagen Diagnostic Kit) 0 mg IM STAT PRN; Protocol PRN Reason: Hypoglycemia Protocol Hydromorphone HCl (Dilaudid) 0.5 mg IVP Q4H PRN PRN Reason: Pain, moderate (4-7) Last Admin: 10/14/18 03:36 Dose: 0.5 mg Ciprofloxacin (Cipro 400mg/200ml Dsw) 400 mg in 200 mls @ 133 mls/hr IVPB Q12H JOSE ANTONIO; Protocol Last Admin: 10/14/18 09:00 Dose: 133 mls/hr Metronidazole (Flagyl) 500 mg in 100 mls @ 100 mls/hr IVPB Q8H JOSE ANTONIO; Protocol Last Admin: 10/14/18 05:39 Dose: 100 mls/hr Magnesium Sulfate/Dextrose (Magnesium Sulfate 1 Gm/100 Ml D5w) 1 gm in 100 mls @ 200 mls/hr IVPB ONCE ONE Stop: 10/14/18 09:59 Last Admin: 10/14/18 09:20 Dose: 200 mls/hr Potassium Chloride (Potassium Chloride 20 Meq/100 Ml) 20 meq in 100 mls @ 50 mls/hr IVPB ONCE ONE Stop: 10/14/18 11:59 Last Admin: 10/14/18 09:18 Dose: 50 mls/hr Insulin Aspart (Novolog) 0 unit SC Q6H JOSE ANTONIO; Protocol Last Admin: 10/14/18 06:21 Dose: Not Given Metoprolol Tartrate (Lopressor) 5 mg IVP Q6 JOSE ANTONIO Last Admin: 10/14/18 05:42 Dose: 5 mg Nitroglycerin (Nitro-Bid 2% Oint) 1 ea TOP Q6H JOSE ANTONIO Stop: 10/15/18 11:01 Last Admin: 10/14/18 05:42 Dose: 1 ea Ondansetron HCl (Zofran Inj) 4 mg IVP Q4H PRN PRN Reason: Nausea/Vomiting Pantoprazole Sodium (Protonix Inj) 40 mg IVP Q12H JOSE ANTONIO Last Admin: 10/14/18 09:02 Dose: 40 mg Vitamin A (Vitamin A & D Oint Ud Foilpak) 1 ea TOP Q6 PRN PRN Reason: for dry lips Last Admin: 10/08/18 21:43 Dose: 1 ea - Labs Labs: 10/14/18 06:09 10/14/18 06:09 PT 16.5 SECONDS (9.7-12.2) H 10/14/18 06:09 INR 1.5 10/14/18 06:09 APTT 51 SECONDS (21-34) H D 10/14/18 06:09 - Constitutional Appears: Non-toxic, No Acute Distress - Head Exam Head Exam: ATRAUMATIC, NORMAL INSPECTION, NORMOCEPHALIC - Eye Exam Eye Exam: EOMI, Normal appearance - ENT Exam ENT Exam: Mucous Membranes Moist - Respiratory Exam Respiratory Exam: NORMAL BREATHING PATTERN. absent: Accessory Muscle Use, Respiratory Distress - Cardiovascular Exam Cardiovascular Exam: absent: JVD - GI/Abdominal Exam GI & Abdominal Exam: Soft. absent: Distended, Firm, Guarding, Rebound Additional comments: periincisional tenderness noted - Extremities Exam Extremities Exam: Normal Inspection. absent: Calf Tenderness - Neurological Exam Neurological Exam: Alert, Awake, Oriented x3 - Psychiatric Exam Psychiatric exam: Normal Affect, Normal Mood - Skin Skin Exam: Dry, Intact, Normal Color, Warm Assessment and Plan - Assessment and Plan (Free Text) Assessment: 73yo F s/p open appendectomy and extensive adhesiolysis. POD 6 Plan: - Advance diet as tolerated - Pain management - Out of bed to chair. Encourage ambulation Further recs as per Dr. Chucho Palacios PYG2 Surgery
[2018-10-14] MEDS ORDERED: Lidocaine Hydrochloride 5 ML INJ ONE (12:24)
[2018-10-14] MEDS ORDERED: Phenylephrine 10 mg/ml Inj ONE (12:24)
[2018-10-14] MEDS ORDERED: ePHEDrine 50 mg/ml Inj ONE (12:24)
[2018-10-14] MEDS ORDERED: Etomidate 20 mg/10ml Inj IV ONE ×2 (12:24→12:35)
[2018-10-14] MEDS ORDERED: Lactated Ringer's 1,000 ML IV ONE (12:28)
--- NOTE | 2018-10-14 12:48 | CP.PCM.PN ---
Subjective - Date & Time of Evaluation Date of Evaluation: 10/14/18 Time of Evaluation: 12:42 - Subjective Subjective: Patient seen and examined, no acute events overnight. She is seen resting in bed comfortably. She denies abdominal pain, nausea, vomiting, fever/chills. + flatus this morning. s/p EGD today showing gastritis, hiatal hernia, duodenal erosions. Objective - Vital Signs/Intake and Output Vital Signs (last 24 hours): Temp Pulse Resp BP Pulse Ox 98.4 F 98 H 27 H 160/68 H 100 10/14/18 08:00 10/14/18 09:30 10/14/18 09:30 10/14/18 09:30 10/14/18 09:30 Intake and Output: 10/14/18 10/14/18 06:59 18:59 Intake Total 631.4 0 Output Total 200 Balance 431.4 0 - Medications Medications: Current Medications Acetaminophen (Tylenol 325mg Tab) 650 mg PO Q6 PRN PRN Reason: Fever >100.4 F Last Admin: 10/09/18 06:37 Dose: 650 mg Dextrose (Dextrose 50% Inj) 0 ml IV STAT PRN; Protocol PRN Reason: Hypoglycemia Protocol Dextrose (Glutose 15) 0 gm PO ONCE PRN; Protocol PRN Reason: Hypoglycemia Protocol Furosemide (Lasix) 20 mg IVP DAILY JOSE ANTONIO Last Admin: 10/14/18 09:02 Dose: 20 mg Glucagon (Glucagen Diagnostic Kit) 0 mg IM STAT PRN; Protocol PRN Reason: Hypoglycemia Protocol Hydromorphone HCl (Dilaudid) 0.5 mg IVP Q4H PRN PRN Reason: Pain, moderate (4-7) Last Admin: 10/14/18 03:36 Dose: 0.5 mg Ciprofloxacin (Cipro 400mg/200ml Dsw) 400 mg in 200 mls @ 133 mls/hr IVPB Q12H JOSE ANTONIO; Protocol Last Admin: 10/14/18 09:00 Dose: 133 mls/hr Metronidazole (Flagyl) 500 mg in 100 mls @ 100 mls/hr IVPB Q8H JOSE ANTONIO; Protocol Last Admin: 10/14/18 05:39 Dose: 100 mls/hr Insulin Aspart (Novolog) 0 unit SC Q6H JOSE ANTONIO; Protocol Last Admin: 10/14/18 06:21 Dose: Not Given Metoprolol Tartrate (Lopressor) 5 mg IVP Q6 JOSE ANTONIO Last Admin: 10/14/18 11:45 Dose: 5 mg Nitroglycerin (Nitro-Bid 2% Oint) 1 ea TOP Q6H JOSE ANTONIO Stop: 10/15/18 11:01 Last Admin: 10/14/18 05:42 Dose: 1 ea Ondansetron HCl (Zofran Inj) 4 mg IVP Q4H PRN PRN Reason: Nausea/Vomiting Pantoprazole Sodium (Protonix Inj) 40 mg IVP Q12H JOSE ANTONIO Last Admin: 10/14/18 09:02 Dose: 40 mg Vitamin A (Vitamin A & D Oint Ud Foilpak) 1 ea TOP Q6 PRN PRN Reason: for dry lips Last Admin: 10/08/18 21:43 Dose: 1 ea - Labs Labs: 10/14/18 06:09 10/14/18 06:09 PT 16.5 SECONDS (9.7-12.2) H 10/14/18 06:09 INR 1.5 10/14/18 06:09 APTT 51 SECONDS (21-34) H D 10/14/18 06:09 Assessment and Plan - Assessment and Plan (Free Text) Assessment: CAD / NSTEMI History of partial colon resection Anemia, melena - s/p EGD today without features of recent or active bleeding Abdominal pain, acute appendicitis s/p appendectomy Plan: - NPO, advance diet as per surgical team - H/H stable, continue to monitor - Continue with PPI therapy - Follow up EGD biopsy results - May resume heparin, follow up additional cardiac recommendations - Patient would benefit from outpatient elective colonoscopy following resolution of acute symptoms. No further planned GI intervention, will sign off case. Please reconsult as necessary, thank you. Case discussed with Dr. Ledesma and Dr. Logan.
--- NOTE | 2018-10-15 02:20 | PN ---
DATE: 10/14/2018 SUBJECTIVE: The patient is seen today, 10/14/2018. She had an EGD done this morning that did not show any active bleeding. PHYSICAL EXAMINATION: VITAL SIGNS: Blood pressure 83/53, temperature 97.7, respiratory rate 20, and pulse of 86. HEENT: Pupils equal, reactive to light. Pale mucosa of the conjunctivae. NECK: Supple. No JVD. No carotid bruit. No lymph node. No thyromegaly. CHEST AND LUNGS: Bilateral symmetrical expansion. Good air exchange. No rales, no rhonchi. CARDIOVASCULAR SYSTEM: PMI not localized. S1, S2. No additional sounds. ASSESSMENT: 1. Status post appendectomy with lysis of adhesions. 2. Melena with positive upper gastrointestinal bleeding. 3. Hypertension. 4. Type 2 diabetes mellitus. PLAN: Follow Surgical and Gastrointestinal recommendations. Monitor hemoglobin and hematocrit and electrolytes. Keep the patient in intensive care unit for now. Continue Cipro and Flagyl treating colitis. [facility] MD Baltazar
[2018-10-15] MEDS: Metoprolol 1 mg/ml Inj IVP SCH ×3 (05:00→18:28)
[2018-10-15] MEDS: Nitroglycerin 2% Ointment Foilpak UD TOP SCH ×2 (05:01→11:42)
[2018-10-15] MEDS: HYDROmorphone 0.5 mg/0.5 ml ISec IVP PRN ×3 (05:04→18:30)
--- NOTE | 2018-10-15 05:18 | CARD ---
APPROVED REPORT Date of service: 10/12/2018 EKG Measurement Heart [id number] <Conclusion> Sinus tachycardia with premature atrial complexes Otherwise normal ECG
--- NOTE | 2018-10-15 05:23 | CARD ---
APPROVED REPORT Date of service: 10/12/2018 EKG Measurement Heart [id number] <Conclusion> Sinus tachycardia with premature supraventricular complexes Nonspecific ST abnormality Abnormal ECG
[2018-10-15 06:12] LABS: BASO % 0.3 % (0.0-2.0); EOS # 0.1 K/uL (0.0-0.7); EOS % 0.8 % (0.0-4.0); LYMPH # 0.8 K/uL (1.0-4.3); LYMPH % 7.3 % (20.0-40.0); MEAN CORPUSCULAR HEMOGLOBIN 31.1 pg (27.0-31.0); MEAN CORPUSCULAR HGB CONC 33.8 g/dL (33.0-37.0); MEAN PLATELET VOLUME 8.4 fL (7.2-11.7); MONO # 0.8 K/uL (0.0-0.8); NEUT # 8.8 K/uL (1.8-7.0); NEUT % 83.6 % (50.0-75.0); NRBC % 0.1 % (0.0-2.0); PLATELET COUNT 255 K/uL (130-400); RBC 3.55 Mil/uL (3.80-5.20); RED CELL DISTRIBUTION WIDTH 15.8 % (11.5-14.5); WHITE BLOOD COUNT 10.5 K/uL (4.8-10.8)
--- NOTE | 2018-10-15 06:23 | CP.PCM.PN ---
Subjective - Date & Time of Evaluation Date of Evaluation: 10/14/18 Time of Evaluation: 20:45 - Subjective Subjective: Patient seen and evaluated S/P EGD and no active bleeding Ok to resume AC for CAD as per GI ADD ASA, Crestor and DVT prophylaxis Continue B blockers and NTP Plan for high risk Coronary intervention (Vascular access issues and highly c alcific CAD issues) or CABG after patient recovers from surgery and more stable (after 1-2 weeks) Meanwhile will test if patient can tolerate Dual antiplatelet therapy Objective - Vital Signs/Intake and Output Vital Signs (last 24 hours): Temp Pulse Resp BP Pulse Ox 97.9 F 95 H 20 155/53 H 98 10/15/18 04:00 10/15/18 04:00 10/15/18 04:00 10/15/18 04:00 10/15/18 00:00 Intake and Output: 10/14/18 10/15/18 18:59 06:59 Intake Total 500 641 Output Total 650 400 Balance -150 241 - Medications Medications: Current Medications Acetaminophen (Tylenol 325mg Tab) 650 mg PO Q6 PRN PRN Reason: Fever >100.4 F Last Admin: 10/09/18 06:37 Dose: 650 mg Dextrose (Dextrose 50% Inj) 0 ml IV STAT PRN; Protocol PRN Reason: Hypoglycemia Protocol Dextrose (Glutose 15) 0 gm PO ONCE PRN; Protocol PRN Reason: Hypoglycemia Protocol Furosemide (Lasix) 20 mg IVP DAILY [facility] Last Admin: 10/14/18 09:02 Dose: 20 mg Glucagon (Glucagen Diagnostic Kit) 0 mg IM STAT PRN; Protocol PRN Reason: Hypoglycemia Protocol Hydromorphone HCl (Dilaudid) 0.5 mg IVP Q4H PRN PRN Reason: Pain, moderate (4-7) Last Admin: 10/15/18 05:04 Dose: 0.5 mg Ciprofloxacin (Cipro 400mg/200ml Dsw) 400 mg in 200 mls @ 133 mls/hr IVPB Q12H [facility]; Protocol Last Admin: 10/14/18 20:57 Dose: 133 mls/hr Metronidazole (Flagyl) 500 mg in 100 mls @ 100 mls/hr IVPB Q8H [facility]; Protocol Last Admin: 10/14/18 21:00 Dose: 100 mls/hr Insulin Aspart (Novolog) 0 unit SC ACHS [facility]; Protocol Last Admin: 10/14/18 21:01 Dose: 3 units Metoprolol Tartrate (Lopressor) 5 mg IVP Q6 [facility] Last Admin: 10/15/18 05:00 Dose: 5 mg Nitroglycerin (Nitro-Bid 2% Oint) 1 ea TOP Q6H [facility] Stop: 10/15/18 11:01 Last Admin: 10/15/18 05:01 Dose: 1 ea Ondansetron HCl (Zofran Inj) 4 mg IVP Q4H PRN PRN Reason: Nausea/Vomiting Pantoprazole Sodium (Protonix Inj) 40 mg IVP Q12H [facility] Last Admin: 10/14/18 21:05 Dose: 40 mg Rosuvastatin Calcium (Crestor) 5 mg PO HS [facility] Vitamin A (Vitamin A & D Oint Ud Foilpak) 1 ea TOP Q6 PRN PRN Reason: for dry lips Last Admin: 10/08/18 21:43 Dose: 1 ea - Labs Labs: 10/15/18 05:56 10/14/18 06:09 PT 16.5 SECONDS (9.7-12.2) H 10/14/18 06:09 INR 1.5 10/14/18 06:09 APTT 51 SECONDS (21-34) H D 10/14/18 06:09
[2018-10-15 06:28] LABS: ALB/GLOB RATIO 1.1 (1.0-2.1); ALBUMIN 3.1 g/dL (3.5-5.0); ALT/SGPT 18 U/L (9-52); AST/SGOT 18 U/L (14-36); BLOOD UREA NITROGEN 10 mg/dL (7-17); CALCIUM 8.9 mg/dl (8.6-10.4); GFR NON-AFRICAN AMERICAN > 60
[2018-10-15 08:23] LABS: LYMPHOCYTE 7 % (20-40); MONOCYTE 5 % (0-10); NEUTROPHIL 88 % (50-75); TOTAL CELLS COUNTED 100
[2018-10-15 08:24] LABS: ANISOCYTOSIS SLIGHT; PLATELET ESTIMATE NORMAL (NORMAL)
[2018-10-15 08:25] LABS: HYPOCHROMIC SLIGHT; POLYCHROMIC SLIGHT
[2018-10-15] MEDS: (Novolog) Insulin Aspart, Recombinant 100 u/ml 10 ml vial SC SCH ×4 (08:41→21:34)
[2018-10-15] MEDS: Enoxaparin 40 mg Syringe SC SCH (09:15)
--- NOTE | 2018-10-15 10:03 | CP.PCM.PN ---
Subjective - Date & Time of Evaluation Date of Evaluation: 10/15/18 Time of Evaluation: 10:00 - Subjective Subjective: General Surgery Consult Note for Dr. Rankin This 73F was seen and examined this AM at bedside. No acute events reported overnight. She went for EDG yesterday showed no signs of bleeding. She is still not passing gas or moving her bowels, however she is hungry. No new complaints overnight. Objective - Vital Signs/Intake and Output Vital Signs (last 24 hours): Temp Pulse Resp BP Pulse Ox 97.4 F L 84 18 159/68 H 99 10/15/18 08:00 10/15/18 08:00 10/15/18 08:00 10/15/18 09:14 10/15/18 08:00 Intake and Output: 10/15/18 10/15/18 06:59 18:59 Intake Total 641 Output Total 400 Balance 241 - Medications Medications: Current Medications Acetaminophen (Tylenol 325mg Tab) 650 mg PO Q6 PRN PRN Reason: Fever >100.4 F Last Admin: 10/09/18 06:37 Dose: 650 mg Aspirin (Ecotrin) 81 mg PO DAILY [facility] Dextrose (Dextrose 50% Inj) 0 ml IV STAT PRN; Protocol PRN Reason: Hypoglycemia Protocol Dextrose (Glutose 15) 0 gm PO ONCE PRN; Protocol PRN Reason: Hypoglycemia Protocol Enoxaparin Sodium (Lovenox) 40 mg SC DAILY [facility] Last Admin: 10/15/18 09:15 Dose: 40 mg Furosemide (Lasix) 20 mg IVP DAILY [facility] Last Admin: 10/15/18 09:14 Dose: 20 mg Glucagon (Glucagen Diagnostic Kit) 0 mg IM STAT PRN; Protocol PRN Reason: Hypoglycemia Protocol Hydromorphone HCl (Dilaudid) 0.5 mg IVP Q4H PRN PRN Reason: Pain, moderate (4-7) Last Admin: 10/15/18 05:04 Dose: 0.5 mg Ciprofloxacin (Cipro 400mg/200ml Dsw) 400 mg in 200 mls @ 133 mls/hr IVPB Q12H [facility]; Protocol Last Admin: 10/14/18 20:57 Dose: 133 mls/hr Metronidazole (Flagyl) 500 mg in 100 mls @ 100 mls/hr IVPB Q8H [facility]; Protocol Last Admin: 10/14/18 21:00 Dose: 100 mls/hr Insulin Aspart (Novolog) 0 unit SC ACHS [facility]; Protocol Last Admin: 10/15/18 08:41 Dose: 3 units Metoprolol Tartrate (Lopressor) 5 mg IVP Q6 [facility] Last Admin: 10/15/18 05:00 Dose: 5 mg Nitroglycerin (Nitro-Bid 2% Oint) 1 ea TOP Q6H [facility] Stop: 10/15/18 11:01 Last Admin: 10/15/18 05:01 Dose: 1 ea Ondansetron HCl (Zofran Inj) 4 mg IVP Q4H PRN PRN Reason: Nausea/Vomiting Pantoprazole Sodium (Protonix Inj) 40 mg IVP Q12H [facility] Last Admin: 10/15/18 09:14 Dose: 40 mg Rosuvastatin Calcium (Crestor) 5 mg PO HS [facility] Vitamin A (Vitamin A & D Oint Ud Foilpak) 1 ea TOP Q6 PRN PRN Reason: for dry lips Last Admin: 10/08/18 21:43 Dose: 1 ea - Labs Labs: 10/15/18 05:56 10/15/18 05:56 PT 16.5 SECONDS (9.7-12.2) H 10/14/18 06:09 INR 1.5 10/14/18 06:09 APTT 51 SECONDS (21-34) H D 10/14/18 06:09 - Constitutional Appears: Non-toxic, No Acute Distress - Head Exam Head Exam: ATRAUMATIC, NORMAL INSPECTION, NORMOCEPHALIC - Eye Exam Eye Exam: EOMI, Normal appearance - ENT Exam ENT Exam: Mucous Membranes Moist - Respiratory Exam Respiratory Exam: NORMAL BREATHING PATTERN. absent: Accessory Muscle Use, Respiratory Distress - Cardiovascular Exam Cardiovascular Exam: absent: JVD - GI/Abdominal Exam GI & Abdominal Exam: Soft. absent: Distended, Firm, Guarding, Rebound Additional comments: periincisional tenderness noted - Extremities Exam Extremities Exam: Normal Inspection. absent: Calf Tenderness - Neurological Exam Neurological Exam: Alert, Awake, Oriented x3 - Psychiatric Exam Psychiatric exam: Normal Affect, Normal Mood - Skin Skin Exam: Dry, Intact, Normal Color, Warm Assessment and Plan - Assessment and Plan (Free Text) Assessment: 73yo F s/p open appendectomy and extensive adhesiolysis. POD 7 Plan: - Regular diet - Pain management - Out of bed to chair. Encourage ambulation - Follow up bowel function - No further surgical intervention warranted Further recs as per Dr. Chcuho Ayers PGY3
--- NOTE | 2018-10-15 11:26 | CP.PCM.PN ---
<Shavon Zurita - Last Filed: 10/15/18 11:23> Subjective - Date & Time of Evaluation Date of Evaluation: 10/15/18 Time of Evaluation: 11:24 - Subjective Subjective: Cardiology Follow Up Patient was seen and examined at bedside. Patient denied any chest pain, shortness of breath, or palpitations. Objective - Vital Signs/Intake and Output Vital Signs (last 24 hours): Temp Pulse Resp BP Pulse Ox 97.4 F L 84 18 159/68 H 99 10/15/18 08:00 10/15/18 08:00 10/15/18 08:00 10/15/18 09:14 10/15/18 08:00 Intake and Output: 10/15/18 10/15/18 06:59 18:59 Intake Total 641 Output Total 400 Balance 241 - Medications Medications: Current Medications Acetaminophen (Tylenol 325mg Tab) 650 mg PO Q6 PRN PRN Reason: Fever >100.4 F Last Admin: 10/09/18 06:37 Dose: 650 mg Aspirin (Ecotrin) 81 mg PO DAILY [facility] Dextrose (Dextrose 50% Inj) 0 ml IV STAT PRN; Protocol PRN Reason: Hypoglycemia Protocol Dextrose (Glutose 15) 0 gm PO ONCE PRN; Protocol PRN Reason: Hypoglycemia Protocol Enoxaparin Sodium (Lovenox) 40 mg SC DAILY [facility] Last Admin: 10/15/18 09:15 Dose: 40 mg Furosemide (Lasix) 20 mg IVP DAILY [facility] Last Admin: 10/15/18 09:14 Dose: 20 mg Glucagon (Glucagen Diagnostic Kit) 0 mg IM STAT PRN; Protocol PRN Reason: Hypoglycemia Protocol Hydromorphone HCl (Dilaudid) 0.5 mg IVP Q4H PRN PRN Reason: Pain, moderate (4-7) Last Admin: 10/15/18 05:04 Dose: 0.5 mg Ciprofloxacin (Cipro 400mg/200ml Dsw) 400 mg in 200 mls @ 133 mls/hr IVPB Q12H [facility]; Protocol Last Admin: 10/14/18 20:57 Dose: 133 mls/hr Metronidazole (Flagyl) 500 mg in 100 mls @ 100 mls/hr IVPB Q8H [facility]; Protocol Last Admin: 10/14/18 21:00 Dose: 100 mls/hr Insulin Aspart (Novolog) 0 unit SC ACHS [facility]; Protocol Last Admin: 10/15/18 08:41 Dose: 3 units Metoprolol Tartrate (Lopressor) 5 mg IVP Q6 [facility] Last Admin: 10/15/18 05:00 Dose: 5 mg Ondansetron HCl (Zofran Inj) 4 mg IVP Q4H PRN PRN Reason: Nausea/Vomiting Pantoprazole Sodium (Protonix Inj) 40 mg IVP Q12H [facility] Last Admin: 10/15/18 09:14 Dose: 40 mg Rosuvastatin Calcium (Crestor) 5 mg PO HS [facility] Vitamin A (Vitamin A & D Oint Ud Foilpak) 1 ea TOP Q6 PRN PRN Reason: for dry lips Last Admin: 10/08/18 21:43 Dose: 1 ea - Labs Labs: 10/15/18 05:56 10/15/18 05:56 PT 16.5 SECONDS (9.7-12.2) H 10/14/18 06:09 INR 1.5 10/14/18 06:09 APTT 51 SECONDS (21-34) H D 10/14/18 06:09 - Additional Findings Additional findings: - Constitutional Appears: No Acute Distress - Head Exam Head Exam: NORMAL INSPECTION, NORMOCEPHALIC - Eye Exam Eye Exam: EOMI, Normal appearance, PERRL - ENT Exam ENT Exam: Mucous Membranes Moist - Respiratory Exam Respiratory Exam: Clear to Ausculation Bilateral, NORMAL BREATHING PATTERN. absent: Decreased Breath Sounds, Wheezes - Cardiovascular Exam Cardiovascular Exam: +S1, +S2. absent: Irregular Rhythm, Murmur - GI/Abdominal Exam GI & Abdominal Exam: Soft, Normal Bowel Sounds. absent: Distended, Tenderness - Neurological Exam Neurological Exam: Alert, Awake, Oriented x3 - Psychiatric Exam Psychiatric exam: Normal Affect, Normal Mood - Skin Skin Exam: Dry, Intact, Normal Color, Warm Assessment and Plan - Assessment and Plan (Free Text) Plan: NSTEMI GI Bleed S/P Open Appendectomy Hx hypertension, type 2 diabetes, hyperlipidemia, CAD, moderate , PAD, PVD Imaging: -S/P Cardiac Catherization 08/2018: L Main: Mild calcific disease, LAD: Proximal 90% calcific disease, L Cx: Mild disease, RCA: Ostial calcific 90% stenosis, EF: 60%, moderate . Due to her fragility, severe lung disease she is high risk for PCI/atherectomy or CABG. Not a candidate at this time. Management: - Started ASA 81mg PO daily, will add Plavix over the weekend - Moniter H/H, Platelets, and for any signs of bleeding - Plan for high risk coronary intervention (Vascular access issues and highly calcific CAD issues) or CABG after patient recovers from surgery and more stable (after 1-2 weeks) Case discussed with Shavon Aceves DO, PGY2 <Alejo Logan - Last Filed: 10/15/18 20:03> Objective - Vital Signs/Intake and Output Vital Signs (last 24 hours): Temp Pulse Resp BP Pulse Ox 98.4 F 77 20 129/57 L 99 10/15/18 15:00 10/15/18 15:00 10/15/18 15:00 10/15/18 15:00 10/15/18 15:00 Intake and Output: 10/15/18 10/16/18 18:59 06:59 Output Total 300 Balance -300 - Medications Medications: Current Medications Acetaminophen (Tylenol 325mg Tab) 650 mg PO Q6 PRN PRN Reason: Fever >100.4 F Last Admin: 10/09/18 06:37 Dose: 650 mg Aspirin (Ecotrin) 81 mg PO DAILY [facility] Last Admin: 10/15/18 09:14 Dose: 81 mg Dextrose (Dextrose 50% Inj) 0 ml IV STAT PRN; Protocol PRN Reason: Hypoglycemia Protocol Dextrose (Glutose 15) 0 gm PO ONCE PRN; Protocol PRN Reason: Hypoglycemia Protocol Enoxaparin Sodium (Lovenox) 40 mg SC DAILY [facility] Last Admin: 10/15/18 09:15 Dose: 40 mg Furosemide (Lasix) 20 mg IVP DAILY [facility] Last Admin: 10/15/18 09:14 Dose: 20 mg Glucagon (Glucagen Diagnostic Kit) 0 mg IM STAT PRN; Protocol PRN Reason: Hypoglycemia Protocol Hydromorphone HCl (Dilaudid) 0.5 mg IVP Q4H PRN PRN Reason: Pain, moderate (4-7) Last Admin: 10/15/18 18:30 Dose: 0.5 mg Ciprofloxacin (Cipro 400mg/200ml Dsw) 400 mg in 200 mls @ 133 mls/hr IVPB Q12H [facility]; Protocol Last Admin: 10/15/18 11:30 Dose: 133 mls/hr Metronidazole (Flagyl) 500 mg in 100 mls @ 100 mls/hr IVPB Q8H [facility]; Protocol Last Admin: 10/15/18 13:59 Dose: 100 mls/hr Insulin Aspart (Novolog) 0 unit SC ACHS [facility]; Protocol Last Admin: 10/15/18 18:28 Dose: 2 units Metoprolol Tartrate (Lopressor) 5 mg IVP Q6 [facility] Last Admin: 10/15/18 18:28 Dose: 5 mg Ondansetron HCl (Zofran Inj) 4 mg IVP Q4H PRN PRN Reason: Nausea/Vomiting Last Admin: 10/15/18 19:00 Dose: 4 mg Pantoprazole Sodium (Protonix Inj) 40 mg IVP Q12H [facility] Last Admin: 10/15/18 09:14 Dose: 40 mg Rosuvastatin Calcium (Crestor) 5 mg PO HS [facility] Vitamin A (Vitamin A & D Oint Ud Foilpak) 1 ea TOP Q6 PRN PRN Reason: for dry lips Last Admin: 10/08/18 21:43 Dose: 1 ea - Labs Labs: 10/15/18 05:56 10/15/18 05:56 PT 16.5 SECONDS (9.7-12.2) H 10/14/18 06:09 INR 1.5 10/14/18 06:09 APTT 51 SECONDS (21-34) H D 10/14/18 06:09 Assessment and Plan - Assessment and Plan (Free Text) Plan: Patient seen and evaluated personally by me. Plan of care d/w the medical facilities section director and as documented
[2018-10-15] MEDS: Ciprofloxacin 400mg/200ml D5W 400 MG/200 ML BAG IVPB SCH ×2 (11:30→21:36)
[2018-10-15] MEDS: metroNIDAZOLE IV 500 mg/100 ml 500 MG/100 ML BAG IVPB SCH ×3 (13:57→21:31)
[2018-10-15] MEDS ORDERED: Potassium Chloride 20 mEq ER Tab PO ONE (23:13)
[2018-10-16] MEDS: Metoprolol 1 mg/ml Inj IVP SCH ×2 (00:12→05:38)
[2018-10-16] MEDS: HYDROmorphone 0.5 mg/0.5 ml ISec IVP PRN ×3 (00:15→20:56)
[2018-10-16] MEDS: metroNIDAZOLE IV 500 mg/100 ml 500 MG/100 ML BAG IVPB SCH ×3 (05:39→22:28)
[2018-10-16] MEDS: Ciprofloxacin 400mg/200ml D5W 400 MG/200 ML BAG IVPB SCH ×2 (09:09→20:51)
[2018-10-16] MEDS: (Novolog) Insulin Aspart, Recombinant 100 u/ml 10 ml vial SC SCH ×4 (09:09→21:10)
--- NOTE | 2018-10-16 09:10 | CP.PCM.PN ---
Subjective - Date & Time of Evaluation Date of Evaluation: 10/16/18 Time of Evaluation: 07:10 - Subjective Subjective: General Surgery Pt seen and examined. NAEO. Passing flatus and tolerating diet. Pain controlled. No nausea/vomiting. Objective - Vital Signs/Intake and Output Vital Signs (last 24 hours): Temp Pulse Resp BP Pulse Ox 98.5 F 82 20 130/69 96 10/16/18 07:00 10/16/18 07:00 10/16/18 07:00 10/16/18 07:00 10/16/18 07:00 Intake and Output: 10/16/18 10/16/18 06:59 18:59 Output Total 300 Balance -300 - Medications Medications: Current Medications Acetaminophen (Tylenol 325mg Tab) 650 mg PO Q6 PRN PRN Reason: Fever >100.4 F Last Admin: 10/09/18 06:37 Dose: 650 mg Aspirin (Ecotrin) 81 mg PO DAILY [facility] Last Admin: 10/15/18 09:14 Dose: 81 mg Dextrose (Dextrose 50% Inj) 0 ml IV STAT PRN; Protocol PRN Reason: Hypoglycemia Protocol Dextrose (Glutose 15) 0 gm PO ONCE PRN; Protocol PRN Reason: Hypoglycemia Protocol Enoxaparin Sodium (Lovenox) 40 mg SC DAILY [facility] Last Admin: 10/15/18 09:15 Dose: 40 mg Furosemide (Lasix) 20 mg IVP DAILY [facility] Last Admin: 10/15/18 09:14 Dose: 20 mg Glucagon (Glucagen Diagnostic Kit) 0 mg IM STAT PRN; Protocol PRN Reason: Hypoglycemia Protocol Hydromorphone HCl (Dilaudid) 0.5 mg IVP Q4H PRN PRN Reason: Pain, moderate (4-7) Last Admin: 10/16/18 00:15 Dose: 0.5 mg Ciprofloxacin (Cipro 400mg/200ml Dsw) 400 mg in 200 mls @ 133 mls/hr IVPB Q12H [facility]; Protocol Last Admin: 10/15/18 21:36 Dose: 133 mls/hr Metronidazole (Flagyl) 500 mg in 100 mls @ 100 mls/hr IVPB Q8H [facility]; Protocol Last Admin: 10/16/18 05:39 Dose: 100 mls/hr Insulin Aspart (Novolog) 0 unit SC ACHS [facility]; Protocol Last Admin: 10/15/18 21:34 Dose: Not Given Metoprolol Tartrate (Lopressor) 5 mg IVP Q6 [facility] Last Admin: 10/16/18 05:38 Dose: 5 mg Ondansetron HCl (Zofran Inj) 4 mg IVP Q4H PRN PRN Reason: Nausea/Vomiting Last Admin: 10/15/18 19:00 Dose: 4 mg Pantoprazole Sodium (Protonix Inj) 40 mg IVP Q12H [facility] Last Admin: 10/15/18 21:33 Dose: 40 mg Rosuvastatin Calcium (Crestor) 5 mg PO HS [facility] Last Admin: 10/15/18 21:33 Dose: 5 mg Vitamin A (Vitamin A & D Oint Ud Foilpak) 1 ea TOP Q6 PRN PRN Reason: for dry lips Last Admin: 10/08/18 21:43 Dose: 1 ea - Labs Labs: 10/15/18 05:56 10/15/18 05:56 PT 16.5 SECONDS (9.7-12.2) H 10/14/18 06:09 INR 1.5 10/14/18 06:09 APTT 51 SECONDS (21-34) H D 10/14/18 06:09 - Constitutional Appears: Non-toxic, No Acute Distress - Head Exam Head Exam: ATRAUMATIC, NORMOCEPHALIC - Eye Exam Eye Exam: EOMI. absent: Scleral icterus - Respiratory Exam Respiratory Exam: NORMAL BREATHING PATTERN. absent: Respiratory Distress - GI/Abdominal Exam GI & Abdominal Exam: Soft, Tenderness (at incision). 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 POD#8 Plan: - Pain management PRN - Encouraged ambulation - Follow up bowel function D/W Dr. Chucho Jackson PGY4
[2018-10-16] MEDS: Enoxaparin 40 mg Syringe SC SCH (09:28)
[2018-10-16 10:50] LABS: BASO # 0.1 K/uL (0.0-0.2); BASO % 0.7 % (0.0-2.0); EOS # 0.1 K/uL (0.0-0.7); EOS % 1.1 % (0.0-4.0); HEMOGLOBIN 10.7 g/dL (11.0-16.0); LYMPH # 0.7 K/uL (1.0-4.3); LYMPH % 5.6 % (20.0-40.0); MEAN CELL VOLUME 89.2 fL (81.0-99.0); MEAN CORPUSCULAR HEMOGLOBIN 29.8 pg (27.0-31.0); MEAN CORPUSCULAR HGB CONC 33.4 g/dL (33.0-37.0); MEAN PLATELET VOLUME 8.2 fL (7.2-11.7); MONO # 0.9 K/uL (0.0-0.8); MONO % 7.3 % (0.0-10.0); NEUT # 10.5 K/uL (1.8-7.0); NEUT % 85.3 % (50.0-75.0); PLATELET COUNT 273 K/uL (130-400); RBC 3.59 Mil/uL (3.80-5.20); RED CELL DISTRIBUTION WIDTH 15.9 % (11.5-14.5); WHITE BLOOD COUNT 12.3 K/uL (4.8-10.8)
[2018-10-16 11:07] LABS: ALB/GLOB RATIO 1.1 (1.0-2.1); ALBUMIN 3.1 g/dL (3.5-5.0); ALT/SGPT 15 U/L (9-52); AST/SGOT 17 U/L (14-36); BLOOD UREA NITROGEN 12 mg/dL (7-17); CALCIUM 8.7 mg/dl (8.6-10.4); GFR NON-AFRICAN AMERICAN > 60
[2018-10-16 11:44] LABS: LYMPHOCYTE 7 % (20-40); MONOCYTE 8 % (0-10); NEUTROPHIL 84 % (50-75); REACTIVE LYMPHOCYTES 1 % (0-0); TOTAL CELLS COUNTED 100
[2018-10-16 11:45] LABS: ANISOCYTOSIS SLIGHT; LARGE PLATELETS PRESENT; PLATELET ESTIMATE NORMAL (NORMAL); POLYCHROMIC SLIGHT
[2018-10-16 11:46] LABS: HYPOCHROMIC SLIGHT; TOXIC GRANULATION PRESENT
[2018-10-16] MEDS: Magnesium Sulfate 1 gm in D5W 1 GM/100 ML BAG IVPB SCH ×2 (15:55→17:03)
--- NOTE | 2018-10-16 22:26 | PN ---
DATE: 10/15/2018 SUBJECTIVE: The patient was seen on 10/15/2018. She was moved from intensive care unit. The patient just sat in the commode, and as she got up, she felt dizzy. OBJECTIVE: VITAL SIGNS: Blood pressure was checked at that time, and it was 129/57, temperature 98.4, respiratory rate 20, and pulse 77. HEENT: Pupils equal and reactive to light. Normal-appearing mucosa of the conjunctivae, oropharynx, and nasal membrane mucosa. NECK: Supple. No JVD. No carotid bruit. No lymph node. No thyromegaly. CHEST AND LUNGS: Bilateral symmetrical expansion. Good air exchange. No rales, no rhonchi. CARDIOVASCULAR SYSTEM: PMI not localized. S1, S2. No additional sounds. ABDOMEN: Decreased bowel sounds. There is tenderness at the surgical site. EXTREMITIES: No cyanosis, no clubbing, no edema. CENTRAL NERVOUS SYSTEM: Alert, awake, oriented x2; and no neurological deficit could be appreciated. ASSESSMENT: 1. Postoperative, status post appendectomy and lysis of adhesions. 2. Chronic obstructive pulmonary disease. 3. Smoker. 4. Peripheral vascular disease. 5. Demand ischemia. 6. Anemia of acute blood loss, status post packed RBCs transfusion. PLAN: Physical therapy for deconditioning. Continue current treatment and medications including antibiotics treating colitis. Bronchodilators as needed. Advance diet as tolerated. Kd Ledesma MD
--- NOTE | 2018-10-16 22:32 | PN ---
DATE: 10/16/2018 SUBJECTIVE: The patient is seen today, 10/16/2018. She generally feels better, and she is tolerating diet. OBJECTIVE: VITAL SIGNS: Blood pressure is 156/63, temperature 98.1, respiratory rate 18, and pulse 100. HEENT: Pupils equal and reactive to light. Normal-appearing mucosa of the conjunctivae, oropharynx, and nasal membrane mucosa. NECK: Supple. No JVD. No carotid bruit. No lymph node. No thyromegaly. CHEST AND LUNGS: Bilateral symmetrical expansion. Few scattered rhonchi bilaterally. CARDIOVASCULAR SYSTEM: PMI not localized. S1, S2. No additional sounds. ABDOMEN: Normoactive bowel sounds. EXTREMITIES: No cyanosis, no clubbing, no edema. CENTRAL NERVOUS SYSTEM: Alert, awake, and oriented x2. No neurological deficit could be appreciated. ASSESSMENT: 1. Postoperative status post appendectomy and lysis of adhesions. 2. Peripheral vascular disease. 3. Colitis, on Cipro and Flagyl. 4. Anemia of acute blood loss. 5. Hypertension. 6. Type 2 diabetes mellitus. PLAN: Continue current antibiotics, physical therapy, bronchodilators as needed. Diet as tolerated. Kd Ledesma MD
[2018-10-17] MEDS: metroNIDAZOLE IV 500 mg/100 ml 500 MG/100 ML BAG IVPB SCH ×3 (05:26→22:10)
[2018-10-17] MEDS: (Novolog) Insulin Aspart, Recombinant 100 u/ml 10 ml vial SC SCH ×4 (08:52→22:16)
[2018-10-17] MEDS: Ciprofloxacin 400mg/200ml D5W 400 MG/200 ML BAG IVPB SCH ×2 (08:54→20:32)
--- NOTE | 2018-10-17 09:23 | CP.PCM.PN ---
Subjective - Date & Time of Evaluation Date of Evaluation: 10/17/18 Time of Evaluation: 09:20 - Subjective Subjective: General Surgery Consult Note for Dr. Rankin This 73F was seen and examined this AM at bedside. No acute events reported overnight. She moved her bowels yesterday which she described as a dark BM. She reports pain is improving however not resolved. She denies any chest pain. No new complaints overnight. Objective - Vital Signs/Intake and Output Vital Signs (last 24 hours): Temp Pulse Resp BP Pulse Ox 98.0 F 89 20 136/69 97 10/17/18 07:00 10/17/18 07:00 10/17/18 07:00 10/17/18 07:00 10/17/18 07:00 Intake and Output: 10/17/18 10/17/18 06:59 18:59 Intake Total 300 Balance 300 - Medications Medications: Current Medications Acetaminophen (Tylenol 325mg Tab) 650 mg PO Q6 PRN PRN Reason: Fever >100.4 F Last Admin: 10/09/18 06:37 Dose: 650 mg Aspirin (Ecotrin) 81 mg PO DAILY [facility] Last Admin: 10/16/18 09:33 Dose: 81 mg Dextrose (Dextrose 50% Inj) 0 ml IV STAT PRN; Protocol PRN Reason: Hypoglycemia Protocol Dextrose (Glutose 15) 0 gm PO ONCE PRN; Protocol PRN Reason: Hypoglycemia Protocol Enoxaparin Sodium (Lovenox) 40 mg SC DAILY [facility] Last Admin: 10/16/18 09:28 Dose: 40 mg Furosemide (Lasix) 20 mg IVP DAILY [facility] Last Admin: 10/16/18 14:25 Dose: 20 mg Glucagon (Glucagen Diagnostic Kit) 0 mg IM STAT PRN; Protocol PRN Reason: Hypoglycemia Protocol Hydromorphone HCl (Dilaudid) 0.5 mg IVP Q4H PRN PRN Reason: Pain, moderate (4-7) Last Admin: 10/16/18 20:56 Dose: 0.5 mg Ciprofloxacin (Cipro 400mg/200ml Dsw) 400 mg in 200 mls @ 133 mls/hr IVPB Q12H [facility]; Protocol Last Admin: 10/17/18 08:54 Dose: 133 mls/hr Metronidazole (Flagyl) 500 mg in 100 mls @ 100 mls/hr IVPB Q8H [facility]; Protocol Last Admin: 10/17/18 05:26 Dose: 100 mls/hr Insulin Aspart (Novolog) 0 unit SC ACHS [facility]; Protocol Last Admin: 10/17/18 08:52 Dose: 2 units Metoprolol Tartrate (Lopressor) 12.5 mg PO BID [facility] Last Admin: 10/16/18 17:31 Dose: 12.5 mg Ondansetron HCl (Zofran Inj) 4 mg IVP Q4H PRN PRN Reason: Nausea/Vomiting Last Admin: 10/17/18 05:30 Dose: 4 mg Pantoprazole Sodium (Protonix Inj) 40 mg IVP Q12H [facility] Last Admin: 10/16/18 21:23 Dose: 40 mg Rosuvastatin Calcium (Crestor) 5 mg PO HS [facility] Last Admin: 10/16/18 21:23 Dose: 5 mg Vitamin A (Vitamin A & D Oint Ud Foilpak) 1 ea TOP Q6 PRN PRN Reason: for dry lips Last Admin: 10/08/18 21:43 Dose: 1 ea - Labs Labs: 10/16/18 10:43 10/16/18 10:43 PT 16.5 SECONDS (9.7-12.2) H 10/14/18 06:09 INR 1.5 10/14/18 06:09 APTT 51 SECONDS (21-34) H D 10/14/18 06:09 - Constitutional Appears: Non-toxic, No Acute Distress - Head Exam Head Exam: ATRAUMATIC, NORMAL INSPECTION, NORMOCEPHALIC - Eye Exam Eye Exam: EOMI, Normal appearance - ENT Exam ENT Exam: Mucous Membranes Moist - Respiratory Exam Respiratory Exam: NORMAL BREATHING PATTERN. absent: Accessory Muscle Use, Respiratory Distress - Cardiovascular Exam Cardiovascular Exam: absent: JVD - GI/Abdominal Exam GI & Abdominal Exam: Soft. absent: Distended, Firm, Guarding, Rebound Additional comments: Jesus in place wound well aproximated small amount of serous drainage. - Extremities Exam Extremities Exam: Normal Inspection. absent: Calf Tenderness - Neurological Exam Neurological Exam: Alert, Awake, Oriented x3 - Psychiatric Exam Psychiatric exam: Normal Affect, Normal Mood - Skin Skin Exam: Dry, Intact, Normal Color, Warm Assessment and Plan - Assessment and Plan (Free Text) Assessment: 73yo F s/p open appendectomy and extensive adhesiolysis. POD9 Plan: - Regular diet - Pain management - Out of bed to chair. Encourage ambulation - No further surgical intervention warranted - Clear for d/c at discretion of primary care provider Further recs as per Dr. Chucho Ayers PGY3
[2018-10-17] MEDS: HYDROmorphone 0.5 mg/0.5 ml ISec IVP PRN ×2 (10:55→20:37)
[2018-10-17] MEDS: Enoxaparin 40 mg Syringe SC SCH (10:57)
--- NOTE | 2018-10-17 11:25 | CP.PCM.PN ---
Subjective - Date & Time of Evaluation Date of Evaluation: 10/16/18 Time of Evaluation: 18:20 - Subjective Subjective: Patient was seen and examined at bedside. Patient denied any chest pain, shortness of breath, or palpitations. Physical examination - Additional Findings Additional findings: - Constitutional Appears: No Acute Distress - Head Exam Head Exam: NORMAL INSPECTION, NORMOCEPHALIC - Eye Exam Eye Exam: EOMI, Normal appearance, PERRL - ENT Exam ENT Exam: Mucous Membranes Moist - Respiratory Exam Respiratory Exam: Clear to Ausculation Bilateral, NORMAL BREATHING PATTERN. absent: Decreased Breath Sounds, Wheezes - Cardiovascular Exam Cardiovascular Exam: +S1, +S2. absent: Irregular Rhythm, Murmur - GI/Abdominal Exam GI & Abdominal Exam: Soft, Normal Bowel Sounds. absent: Distended, Tenderness - Neurological Exam Neurological Exam: Alert, Awake, Oriented x3 - Psychiatric Exam Psychiatric exam: Normal Affect, Normal Mood - Skin Skin Exam: Dry, Intact, Normal Color, Warm Assessment and Plan - Assessment and Plan (Free Text) Plan: NSTEMI GI Bleed S/P Open Appendectomy Hx hypertension, type 2 diabetes, hyperlipidemia, CAD, moderate , PAD, PVD Imaging: -S/P Cardiac Catherization 08/2018: L Main: Mild calcific disease, LAD: Proximal 90% calcific disease, L Cx: Mild disease, RCA: Ostial calcific 90% stenosis, EF: 60%, moderate . Due to her fragility, severe lung disease she is high risk for PCI/atherectomy or CABG. Not a candidate at this time. Management: - Started ASA 81mg PO daily, will add Plavix over the weekend - Moniter H/H, Platelets, and for any signs of bleeding - Plan for high risk coronary intervention (Vascular access issues and highly calcific CAD issues) or CABG after patient recovers from surgery and more stable (after 1-2 weeks) Objective - Vital Signs/Intake and Output Vital Signs (last 24 hours): Temp Pulse Resp BP Pulse Ox 98.0 F 89 20 136/69 97 10/17/18 07:00 10/17/18 07:00 10/17/18 07:00 10/17/18 07:00 10/17/18 07:00 Intake and Output: 10/17/18 10/17/18 06:59 18:59 Intake Total 300 Balance 300 - Medications Medications: Current Medications Acetaminophen (Tylenol 325mg Tab) 650 mg PO Q6 PRN PRN Reason: Fever >100.4 F Last Admin: 10/09/18 06:37 Dose: 650 mg Aspirin (Ecotrin) 81 mg PO DAILY [facility] Last Admin: 10/17/18 10:56 Dose: 81 mg Dextrose (Dextrose 50% Inj) 0 ml IV STAT PRN; Protocol PRN Reason: Hypoglycemia Protocol Dextrose (Glutose 15) 0 gm PO ONCE PRN; Protocol PRN Reason: Hypoglycemia Protocol Enoxaparin Sodium (Lovenox) 40 mg SC DAILY [facility] Last Admin: 10/17/18 10:57 Dose: 40 mg Furosemide (Lasix) 20 mg IVP DAILY [facility] Last Admin: 10/16/18 14:25 Dose: 20 mg Glucagon (Glucagen Diagnostic Kit) 0 mg IM STAT PRN; Protocol PRN Reason: Hypoglycemia Protocol Hydromorphone HCl (Dilaudid) 0.5 mg IVP Q4H PRN PRN Reason: Pain, moderate (4-7) Last Admin: 10/17/18 10:55 Dose: 0.5 mg Ciprofloxacin (Cipro 400mg/200ml Dsw) 400 mg in 200 mls @ 133 mls/hr IVPB Q12H [facility]; Protocol Last Admin: 10/17/18 08:54 Dose: 133 mls/hr Metronidazole (Flagyl) 500 mg in 100 mls @ 100 mls/hr IVPB Q8H [facility]; Protocol Last Admin: 10/17/18 05:26 Dose: 100 mls/hr Insulin Aspart (Novolog) 0 unit SC ACHS [facility]; Protocol Last Admin: 10/17/18 08:52 Dose: 2 units Metoprolol Tartrate (Lopressor) 12.5 mg PO BID [facility] Last Admin: 10/17/18 10:56 Dose: 12.5 mg Ondansetron HCl (Zofran Inj) 4 mg IVP Q4H PRN PRN Reason: Nausea/Vomiting Last Admin: 10/17/18 05:30 Dose: 4 mg Pantoprazole Sodium (Protonix Inj) 40 mg IVP Q12H [facility] Last Admin: 10/17/18 10:57 Dose: 40 mg Rosuvastatin Calcium (Crestor) 5 mg PO HS [facility] Last Admin: 10/16/18 21:23 Dose: 5 mg Vitamin A (Vitamin A & D Oint Ud Foilpak) 1 ea TOP Q6 PRN PRN Reason: for dry lips Last Admin: 10/08/18 21:43 Dose: 1 ea - Labs Labs: 10/16/18 10:43 10/16/18 10:43 PT 16.5 SECONDS (9.7-12.2) H 10/14/18 06:09 INR 1.5 10/14/18 06:09 APTT 51 SECONDS (21-34) H D 10/14/18 06:09
[2018-10-17 15:38] LABS: ALB/GLOB RATIO 1.1 (1.0-2.1); ALBUMIN 3.2 g/dL (3.5-5.0); ALT/SGPT 18 U/L (9-52); AST/SGOT 20 U/L (14-36); BLOOD UREA NITROGEN 11 mg/dL (7-17); CALCIUM 8.2 mg/dl (8.6-10.4); GFR NON-AFRICAN AMERICAN > 60
[2018-10-17 17:03] LABS: SQUAMOUS EPITHIAL 7 /hpf (0-5); URINE BACTERIA OCC (<OCC); URINE BILIRUBIN 1+ (NEGATIVE); URINE BLOOD NEGATIVE (NEGATIVE); URINE CLARITY Clear (Clear); URINE GLUCOSE (UA) 3+ mg/dL (Normal); URINE LEUKOCYTE ESTERASE TRACE Leu/uL (Negative); URINE PROTEIN 3+ mg/dL (NEGATIVE); URINE UROBILINOGEN NORMAL mg/dL (0.2-1.0)
[2018-10-17 17:06] LABS: URINE COLOR YELLOW (YELLOW)
--- NOTE | 2018-10-17 22:49 | CP.PCM.PN ---
Subjective - Date & Time of Evaluation Date of Evaluation: 10/17/18 Time of Evaluation: 10:15 - Subjective Subjective: Patient s/p Non STEMI Now on ASA and Plavix Watch for bleeding and monitor H and H Objective - Vital Signs/Intake and Output Vital Signs (last 24 hours): Temp Pulse Resp BP Pulse Ox 98.4 F 91 H 20 143/66 95 10/17/18 15:20 10/17/18 19:20 10/17/18 15:20 10/17/18 17:36 10/17/18 15:20 Intake and Output: 10/17/18 10/18/18 18:59 06:59 Intake Total 640 Balance 640 - Medications Medications: Current Medications Acetaminophen (Tylenol 325mg Tab) 650 mg PO Q6 PRN PRN Reason: Fever >100.4 F Last Admin: 10/09/18 06:37 Dose: 650 mg Aspirin (Ecotrin) 81 mg PO DAILY [facility] Last Admin: 10/17/18 10:56 Dose: 81 mg Clopidogrel Bisulfate (Plavix) 75 mg PO DAILY [facility] Last Admin: 10/17/18 13:43 Dose: 75 mg Dextrose (Dextrose 50% Inj) 0 ml IV STAT PRN; Protocol PRN Reason: Hypoglycemia Protocol Dextrose (Glutose 15) 0 gm PO ONCE PRN; Protocol PRN Reason: Hypoglycemia Protocol Enoxaparin Sodium (Lovenox) 40 mg SC DAILY [facility] Last Admin: 10/17/18 10:57 Dose: 40 mg Furosemide (Lasix) 20 mg IVP DAILY [facility] Last Admin: 10/17/18 17:35 Dose: 20 mg Glucagon (Glucagen Diagnostic Kit) 0 mg IM STAT PRN; Protocol PRN Reason: Hypoglycemia Protocol Hydromorphone HCl (Dilaudid) 0.5 mg IVP Q4H PRN PRN Reason: Pain, moderate (4-7) Last Admin: 10/17/18 20:37 Dose: 0.5 mg Ciprofloxacin (Cipro 400mg/200ml Dsw) 400 mg in 200 mls @ 133 mls/hr IVPB Q12H [facility]; Protocol Last Admin: 10/17/18 20:32 Dose: 133 mls/hr Metronidazole (Flagyl) 500 mg in 100 mls @ 100 mls/hr IVPB Q8H [facility]; Protocol Last Admin: 10/17/18 22:10 Dose: 100 mls/hr Insulin Aspart (Novolog) 0 unit SC ACHS [facility]; Protocol Last Admin: 10/17/18 22:16 Dose: 4 units Metoprolol Tartrate (Lopressor) 12.5 mg PO BID [facility] Last Admin: 10/17/18 17:34 Dose: 12.5 mg Ondansetron HCl (Zofran Inj) 4 mg IVP Q4H PRN PRN Reason: Nausea/Vomiting Last Admin: 10/17/18 05:30 Dose: 4 mg Pantoprazole Sodium (Protonix Inj) 40 mg IVP Q12H [facility] Last Admin: 10/17/18 21:23 Dose: 40 mg Rosuvastatin Calcium (Crestor) 5 mg PO HS [facility] Last Admin: 10/17/18 21:23 Dose: 5 mg Vitamin A (Vitamin A & D Oint Ud Foilpak) 1 ea TOP Q6 PRN PRN Reason: for dry lips Last Admin: 10/08/18 21:43 Dose: 1 ea - Labs Labs: 10/16/18 10:43 10/17/18 14:54 PT 16.5 SECONDS (9.7-12.2) H 10/14/18 06:09 INR 1.5 10/14/18 06:09 APTT 51 SECONDS (21-34) H D 10/14/18 06:09
[2018-10-18] MEDS: HYDROmorphone 0.5 mg/0.5 ml ISec IVP PRN ×4 (04:48→22:14)
[2018-10-18] MEDS: metroNIDAZOLE IV 500 mg/100 ml 500 MG/100 ML BAG IVPB SCH ×3 (05:33→22:15)
[2018-10-18 05:42] LABS: BASO # 0.1 K/uL (0.0-0.2); BASO % 0.6 % (0.0-2.0); EOS # 0.2 K/uL (0.0-0.7); EOS % 1.4 % (0.0-4.0); HEMOGLOBIN 11.6 g/dL (11.0-16.0); LYMPH # 1.2 K/uL (1.0-4.3); LYMPH % 9.1 % (20.0-40.0); MEAN CELL VOLUME 88.9 fL (81.0-99.0); MEAN CORPUSCULAR HGB CONC 32.6 g/dL (33.0-37.0); MEAN PLATELET VOLUME 8.5 fL (7.2-11.7); MONO # 1.1 K/uL (0.0-0.8); MONO % 8.8 % (0.0-10.0); NEUT # 10.5 K/uL (1.8-7.0); NEUT % 80.1 % (50.0-75.0); PLATELET COUNT 355 K/uL (130-400); RBC 4.01 Mil/uL (3.80-5.20); RED CELL DISTRIBUTION WIDTH 16.1 % (11.5-14.5); WHITE BLOOD COUNT 13.1 K/uL (4.8-10.8)
[2018-10-18 08:32] LABS: ANISOCYTOSIS SLIGHT; BANDS 1 % (0-2); HYPOCHROMIC SLIGHT; LYMPHOCYTE 11 % (20-40); MONOCYTE 10 % (0-10); NEUTROPHIL 78 % (50-75); PLATELET ESTIMATE NORMAL (NORMAL); POIKILOCYTOSIS SLIGHT; TOTAL CELLS COUNTED 100
[2018-10-18 08:33] LABS: POLYCHROMIC SLIGHT
[2018-10-18] MEDS: (Novolog) Insulin Aspart, Recombinant 100 u/ml 10 ml vial SC SCH ×4 (08:37→22:18)
[2018-10-18] MEDS: Enoxaparin 40 mg Syringe SC SCH (09:27)
[2018-10-18] MEDS: Ciprofloxacin 400mg/200ml D5W 400 MG/200 ML BAG IVPB SCH ×2 (09:35→20:30)
--- NOTE | 2018-10-18 09:56 | PN ---
DATE: 10/17/2018 SUBJECTIVE: The patient is seen today, 10/17/2018. She is not in any cardiopulmonary distress. The patient is so far tolerating advancing diet. OBJECTIVE: VITAL SIGNS: Blood pressure 143/66, temperature 98.4, respiratory rate 20 and pulse 90. HEENT: Pupils equal, reactive to light. Normal-appearing mucosa of the conjunctivae, oropharynx and nasal membrane mucosa. NECK: Supple. No JVD. No carotid bruit . No lymph node. No thyromegaly. CHEST: Lungs, bilateral symmetrical expansion. Good air exchange. No rales, no rhonchi. CARDIOVASCULAR SYSTEM: PMI not localized. S1, S2. No additional sounds. ABDOMEN: Normoactive bowel sounds. No tenderness. No organomegaly. No masses. EXTREMITIES: No cyanosis or clubbing. No edema. DRUG ABUSE RESISTANCE EDUCATION OFFICER: Alert, awake, oriented x2. No neurological deficit could be appreciated. ASSESSMENT: 1. Status post appendectomy and lysis of adhesions. 2. Peripheral vascular disease. 3. Colitis. 4. Hypertension. 5. Type 2 diabetes mellitus. 6. Chronic obstructive pulmonary disease. PLAN: Continue current medications and antibiotics, advance diet as tolerated and physical therapy, and plan to discharge patient to transitional care unit. Kd Ledesma MD
--- NOTE | 2018-10-18 20:25 | CP.PCM.PN ---
Subjective - Date & Time of Evaluation Date of Evaluation: 10/18/18 Time of Evaluation: 14:10 - Subjective Subjective: Patient was seen and examined at bedside. Patient denied any chest pain, shortness of breath, or palpitations. Still has some nausea and abdominal pain Physical examination - Additional Findings Additional findings: - Constitutional Appears: No Acute Distress - Head Exam Head Exam: NORMAL INSPECTION, NORMOCEPHALIC - Eye Exam Eye Exam: EOMI, Normal appearance, PERRL - ENT Exam ENT Exam: Mucous Membranes Moist - Respiratory Exam Respiratory Exam: Clear to Ausculation Bilateral, NORMAL BREATHING PATTERN. absent: Decreased Breath Sounds, Wheezes - Cardiovascular Exam Cardiovascular Exam: +S1, +S2. absent: Irregular Rhythm, Murmur - GI/Abdominal Exam GI & Abdominal Exam: Soft, Normal Bowel Sounds. absent: Distended, Tenderness - Neurological Exam Neurological Exam: Alert, Awake, Oriented x3 - Psychiatric Exam Psychiatric exam: Normal Affect, Normal Mood - Skin Skin Exam: Dry, Intact, Normal Color, Warm Assessment and Plan - Assessment and Plan (Free Text) Plan: NSTEMI GI Bleed S/P Open Appendectomy Hx hypertension, type 2 diabetes, hyperlipidemia, CAD, moderate , PAD, PVD Imaging: -S/P Cardiac Catherization 08/2018: L Main: Mild calcific disease, LAD: Proximal 90% calcific disease, L Cx: Mild disease, RCA: Ostial calcific 90% stenosis, EF: 60%, moderate . Due to her fragility, severe lung disease she is high risk for PCI/atherectomy or CABG. Not a candidate at this time. Management: - Started ASA 81mg and Plavix 75 daily - Moniter H/H, Platelets, and for any signs of bleeding - Plan for high risk coronary intervention (Vascular access issues and highly calcific CAD issues) or CABG after patient recovers from surgery and more stable (after 1-2 weeks) Objective - Vital Signs/Intake and Output Vital Signs (last 24 hours): Temp Pulse Resp BP Pulse Ox 98.3 F 84 20 135/65 95 10/18/18 15:46 10/18/18 16:07 10/18/18 15:46 10/18/18 15:46 10/18/18 15:46 Intake and Output: 10/18/18 10/19/18 18:59 06:59 Intake Total 650 Balance 650 - Medications Medications: Current Medications Acetaminophen (Tylenol 325mg Tab) 650 mg PO Q6 PRN PRN Reason: Fever >100.4 F Last Admin: 10/09/18 06:37 Dose: 650 mg Aspirin (Ecotrin) 81 mg PO DAILY [facility] Last Admin: 10/18/18 09:34 Dose: 81 mg Clopidogrel Bisulfate (Plavix) 75 mg PO DAILY [facility] Last Admin: 10/18/18 09:34 Dose: 75 mg Dextrose (Dextrose 50% Inj) 0 ml IV STAT PRN; Protocol PRN Reason: Hypoglycemia Protocol Dextrose (Glutose 15) 0 gm PO ONCE PRN; Protocol PRN Reason: Hypoglycemia Protocol Enoxaparin Sodium (Lovenox) 40 mg SC DAILY [facility] Last Admin: 10/18/18 09:27 Dose: 40 mg Furosemide (Lasix) 20 mg IVP DAILY [facility] Last Admin: 10/18/18 09:30 Dose: 20 mg Glucagon (Glucagen Diagnostic Kit) 0 mg IM STAT PRN; Protocol PRN Reason: Hypoglycemia Protocol Hydromorphone HCl (Dilaudid) 0.5 mg IVP Q4H PRN PRN Reason: Pain, moderate (4-7) Last Admin: 10/18/18 14:09 Dose: 0.5 mg Ciprofloxacin (Cipro 400mg/200ml Dsw) 400 mg in 200 mls @ 133 mls/hr IVPB Q12H [facility]; Protocol Last Admin: 10/18/18 09:35 Dose: 133 mls/hr Metronidazole (Flagyl) 500 mg in 100 mls @ 100 mls/hr IVPB Q8H [facility]; Protocol Last Admin: 10/18/18 14:05 Dose: 100 mls/hr Insulin Aspart (Novolog) 0 unit SC ACHS [facility]; Protocol Last Admin: 10/18/18 17:17 Dose: 5 units Metoprolol Tartrate (Lopressor) 12.5 mg PO BID [facility] Last Admin: 10/18/18 17:16 Dose: 12.5 mg Ondansetron HCl (Zofran Inj) 4 mg IVP Q4H PRN PRN Reason: Nausea/Vomiting Last Admin: 10/18/18 04:48 Dose: 4 mg Pantoprazole Sodium (Protonix Ec Tab) 40 mg PO Q12H [facility] Rosuvastatin Calcium (Crestor) 5 mg PO HS [facility] Last Admin: 10/17/18 21:23 Dose: 5 mg Vitamin A (Vitamin A & D Oint Ud Foilpak) 1 ea TOP Q6 PRN PRN Reason: for dry lips Last Admin: 10/08/18 21:43 Dose: 1 ea - Labs Labs: 10/18/18 05:36 10/17/18 14:54 PT 16.5 SECONDS (9.7-12.2) H 10/14/18 06:09 INR 1.5 10/14/18 06:09 APTT 51 SECONDS (21-34) H D 10/14/18 06:09
[2018-10-18] MEDS: Pantoprazole 40 mg EC Tab PO SCH (22:06)
--- NOTE | 2018-10-19 02:31 | PN ---
DATE: 10/18/2018 SUBJECTIVE: The patient is seen today, 10/18/2018. She is not in any cardiopulmonary distress. PHYSICAL EXAMINATION: VITAL SIGNS: Blood pressure 135/65, temperature 98.3, respiratory rate 20, and pulse 88. HEENT: Pupils equal, reactive to light. Normal-appearing mucosa of the conjunctivae, oropharynx, and nasal membrane mucosa. NECK: Supple. No JVD. No carotid bruits. No lymph node. No thyromegaly. CHEST AND LUNGS: Bilateral symmetrical expansion. Good air exchange. No rales. No rhonchi. CARDIOVASCULAR SYSTEM: PMI not localized. S1, S2. No additional sounds. ABDOMEN: Normoactive bowel sounds. No tenderness. No organomegaly. No masses. EXTREMITIES: No cyanosis, no clubbing, no edema. WELL REACTIVATOR OPERATOR: Alert, awake, and oriented x2. No neurological deficit could be appreciated. ASSESSMENT: 1. Status post laparotomy with appendectomy and lysis of adhesions. 2. Colitis. 3. Hypertension. 4. Type 2 diabetes mellitus. 5. Peripheral vascular disease. PLAN: Continue current antibiotics and medications and plan to discharge to subacute rehabilitation at transitional care unit at [place]. Kd Ledesma MD
[2018-10-19] MEDS: metroNIDAZOLE IV 500 mg/100 ml 500 MG/100 ML BAG IVPB SCH ×3 (05:11→22:26)
[2018-10-19] MEDS: HYDROmorphone 0.5 mg/0.5 ml ISec IVP PRN ×3 (07:40→18:10)
[2018-10-19] MEDS: (Novolog) Insulin Aspart, Recombinant 100 u/ml 10 ml vial SC SCH ×4 (08:40→21:08)
[2018-10-19] MEDS: Ciprofloxacin 400mg/200ml D5W 400 MG/200 ML BAG IVPB SCH ×2 (09:55→21:03)
[2018-10-19] MEDS: Vitamins A & D Oint UD Foilpak TOP PRN (10:08)
[2018-10-19] MEDS: Enoxaparin 40 mg Syringe SC SCH (10:09)
[2018-10-19] MEDS: Pantoprazole 40 mg EC Tab PO SCH ×2 (10:09→21:11)
[2018-10-19] MEDS ORDERED: (Novolog) Insulin Aspart, Recombinant 100 u/ml 10 ml vial SC STA (12:25)
[2018-10-19 15:00] LABS: BASO # 0.1 K/uL (0.0-0.2); BASO % 0.6 % (0.0-2.0); EOS # 0.1 K/uL (0.0-0.7); EOS % 0.9 % (0.0-4.0); HEMOGLOBIN 11.1 g/dL (11.0-16.0); LYMPH # 0.6 K/uL (1.0-4.3); LYMPH % 5.9 % (20.0-40.0); MEAN CORPUSCULAR HEMOGLOBIN 29.8 pg (27.0-31.0); MEAN CORPUSCULAR HGB CONC 32.6 g/dL (33.0-37.0); MEAN PLATELET VOLUME 8.7 fL (7.2-11.7); MONO # 0.9 K/uL (0.0-0.8); MONO % 8.1 % (0.0-10.0); NEUT # 9.3 K/uL (1.8-7.0); NEUT % 84.5 % (50.0-75.0); PLATELET COUNT 364 K/uL (130-400); RBC 3.72 Mil/uL (3.80-5.20); RED CELL DISTRIBUTION WIDTH 16.4 % (11.5-14.5)
[2018-10-19 15:03] LABS: MEAN CELL VOLUME 91.4 fL (81.0-99.0)
[2018-10-19 15:17] LABS: BLOOD UREA NITROGEN 11 mg/dL (7-17); CALCIUM 8.4 mg/dl (8.6-10.4); GFR NON-AFRICAN AMERICAN > 60
[2018-10-19 15:31] LABS: EOSINOPHIL 2 % (0-4); LYMPHOCYTE 6 % (20-40); MONOCYTE 7 % (0-10); NEUTROPHIL 85 % (50-75); PLATELET ESTIMATE NORMAL (NORMAL); TOTAL CELLS COUNTED 100
[2018-10-19 15:32] LABS: ANISOCYTOSIS SLIGHT; POIKILOCYTOSIS SLIGHT
[2018-10-19 15:33] LABS: HYPOCHROMIC SLIGHT; POLYCHROMIC SLIGHT
[2018-10-19] MEDS ORDERED: Potassium Chloride 20 mEq ER Tab PO STA (16:17)
--- NOTE | 2018-10-19 22:31 | CP.PCM.PN ---
Subjective - Date & Time of Evaluation Date of Evaluation: 10/19/18 Time of Evaluation: 08:20 - Subjective Subjective: Patient seen and evaluated No cardiac events noted D/C compliance professional H and H Objective - Vital Signs/Intake and Output Vital Signs (last 24 hours): Temp Pulse Resp BP Pulse Ox 98.6 F 90 20 131/52 L 96 10/19/18 15:38 10/19/18 15:38 10/19/18 15:38 10/19/18 15:38 10/19/18 15:38 - Medications Medications: Current Medications Acetaminophen (Tylenol 325mg Tab) 650 mg PO Q6 PRN PRN Reason: Fever >100.4 F Last Admin: 10/09/18 06:37 Dose: 650 mg Aspirin (Ecotrin) 81 mg PO DAILY [facility] Last Admin: 10/19/18 10:09 Dose: 81 mg Clopidogrel Bisulfate (Plavix) 75 mg PO DAILY [facility] Last Admin: 10/19/18 10:09 Dose: 75 mg Dextrose (Dextrose 50% Inj) 0 ml IV STAT PRN; Protocol PRN Reason: Hypoglycemia Protocol Dextrose (Glutose 15) 0 gm PO ONCE PRN; Protocol PRN Reason: Hypoglycemia Protocol Docusate Sodium (Colace) 100 mg PO BID [facility] Last Admin: 10/19/18 18:06 Dose: 100 mg Enoxaparin Sodium (Lovenox) 40 mg SC DAILY [facility] Last Admin: 10/19/18 10:09 Dose: 40 mg Furosemide (Lasix) 20 mg IVP DAILY [facility] Last Admin: 10/19/18 10:08 Dose: 20 [facility] Admin: 10/19/18 16:45 Dose: 10 mg Glucagon (Glucagen Diagnostic Kit) 0 mg IM STAT PRN; Protocol PRN Reason: Hypoglycemia Protocol Hydromorphone HCl (Dilaudid) 0.5 mg IVP Q4H PRN PRN Reason: Pain, moderate (4-7) Last Admin: 10/19/18 18:10 Dose: 0.5 mg Ciprofloxacin (Cipro 400mg/200ml Dsw) 400 mg in 200 mls @ 133 mls/hr IVPB Q12H [facility]; Protocol Last Admin: 10/19/18 21:03 Dose: 133 mls/hr Metronidazole (Flagyl) 500 mg in 100 mls @ 100 mls/hr IVPB Q8H [facility]; Protocol Last Admin: 10/19/18 22:26 Dose: 100 mls/hr Insulin Aspart (Novolog) 0 unit SC ACHS [facility]; Protocol Last Admin: 10/19/18 21:08 Dose: Not Given Metformin HCl (Glucophage) 500 mg PO BIDCC [facility] Last Admin: 10/19/18 17:25 Dose: 500 mg Metoprolol Tartrate (Lopressor) 12.5 mg PO BID [facility] Last Admin: 10/19/18 18:06 Dose: 12.5 mg Ondansetron HCl (Zofran Inj) 4 mg IVP Q4H PRN PRN Reason: Nausea/Vomiting Last Admin: 10/18/18 04:48 Dose: 4 mg Pantoprazole Sodium (Protonix Ec Tab) 40 mg PO Q12H [facility] Last Admin: 10/19/18 21:11 Dose: 40 mg Rosuvastatin Calcium (Crestor) 5 mg PO HS [facility] Last Admin: 10/19/18 21:11 Dose: 5 mg Sennosides (Senokot Tab) 8.6 mg PO DAILY [facility] Last Admin: 10/19/18 16:45 Dose: 8.6 mg Vitamin A (Vitamin A & D Oint Ud Foilpak) 1 ea TOP Q6 PRN PRN Reason: for dry lips Last Admin: 10/19/18 10:08 Dose: 1 ea - Labs Labs: 10/19/18 14:48 10/19/18 14:48 PT 16.5 SECONDS (9.7-12.2) H 10/14/18 06:09 INR 1.5 10/14/18 06:09 APTT 51 SECONDS (21-34) H D 10/14/18 06:09
--- NOTE | 2018-10-20 00:09 | PN ---
DATE: 10/19/2018 SUBJECTIVE: The patient is seen today, 10/19/2018. She is not in any cardiopulmonary distress. The patient has pain at the surgical wound site, which is appropriate. PHYSICAL EXAMINATION: VITAL SIGNS: Blood pressure 131/52, temperature 98.6, respiratory rate 20, and pulse 90. HEENT: Pupils equal, and reactive to light. Normal-appearing mucosa of the conjunctivae, oropharynx, and nasal membrane mucosa. NECK: Supple. No JVD. No carotid bruit. No lymph node. No thyromegaly. CHEST AND LUNGS: Bilateral symmetrical expansion. Good air exchange. No rales. No rhonchi. CARDIOVASCULAR SYSTEM: PMI not localized. S1, S2. No additional sounds. ABDOMEN: Normoactive bowel sounds. No tenderness. No organomegaly. No masses. EXTREMITIES: No cyanosis, no clubbing, no edema. NAPHTHA WASHING SYSTEM OPERATOR: Alert, awake, and oriented x2. No neurological deficit could be appreciated. ASSESSMENT: 1. Status post laparotomy for appendectomy and lysis of adhesions. 2. Colitis. 3. Peripheral vascular disease. 4. Type 2 diabetes mellitus. 5. Chronic obstructive pulmonary disease. PLAN: Continue current medications and management. Follow recommendations of Surgery, Physical Therapy. The patient is for transfer to Transitional Care Unit at [place]. Kd Ledesma MD
[2018-10-20] MEDS: HYDROmorphone 0.5 mg/0.5 ml ISec IVP PRN ×2 (00:33→05:08)
[2018-10-20] MEDS: metroNIDAZOLE IV 500 mg/100 ml 500 MG/100 ML BAG IVPB SCH (05:05)
[2018-10-20] MEDS: (Novolog) Insulin Aspart, Recombinant 100 u/ml 10 ml vial SC SCH ×3 (07:49→16:51)
[2018-10-20] MEDS: Ciprofloxacin 400mg/200ml D5W 400 MG/200 ML BAG IVPB SCH (09:13)
[2018-10-20] MEDS: Enoxaparin 40 mg Syringe SC SCH (09:14)
[2018-10-20] MEDS: Pantoprazole 40 mg EC Tab PO SCH (09:14)
[2018-10-20] MEDS: Oxycodone/Acetaminophen 5/325 mg Tab PO PRN ×2 (10:35→16:27)
[2018-10-20 15:52] VITALS: BP 136/58; PULSE 92; RESP 20; TEMP 98.3; O2SAT 97
--- NOTE | 2018-10-20 17:12 | CP.PCM.PN ---
Subjective - Date & Time of Evaluation Date of Evaluation: 10/20/18 Time of Evaluation: 17:12 - Subjective Subjective: awake, alert, ambulates with assistance, NAD. Objective - Vital Signs/Intake and Output Vital Signs (last 24 hours): Temp Pulse Resp BP Pulse Ox 98.3 F 92 H 20 136/58 L 97 10/20/18 15:50 10/20/18 15:50 10/20/18 15:50 10/20/18 15:50 10/20/18 15:50 Intake and Output: 10/20/18 10/20/18 06:59 18:59 Intake Total 850 240 Balance 850 240 - Medications Medications: Current Medications Acetaminophen (Tylenol 325mg Tab) 650 mg PO Q6 PRN PRN Reason: Fever >100.4 F Last Admin: 10/09/18 06:37 Dose: 650 mg Aspirin (Ecotrin) 81 mg PO DAILY [facility] Last Admin: 10/20/18 09:14 Dose: 81 mg Clopidogrel Bisulfate (Plavix) 75 mg PO DAILY [facility] Last Admin: 10/20/18 09:14 Dose: 75 mg Dextrose (Dextrose 50% Inj) 0 ml IV STAT PRN; Protocol PRN Reason: Hypoglycemia Protocol Dextrose (Glutose 15) 0 gm PO ONCE PRN; Protocol PRN Reason: Hypoglycemia Protocol Docusate Sodium (Colace) 100 mg PO BID [facility] Last Admin: 10/20/18 09:14 Dose: 100 mg Enoxaparin Sodium (Lovenox) 40 mg SC DAILY [facility] Last Admin: 10/20/18 09:14 Dose: 40 mg Furosemide (Lasix) 20 mg IVP DAILY [facility] Last Admin: 10/20/18 09:14 Dose: 20 mg Glipizide (Glucotrol) 10 mg PO BIDAC [facility] Last Admin: 10/20/18 16:27 Dose: 10 mg Glucagon (Glucagen Diagnostic Kit) 0 mg IM STAT PRN; Protocol PRN Reason: Hypoglycemia Protocol Insulin Aspart (Novolog) 0 unit SC [facility]; Protocol Last Admin: 10/20/18 16:51 Dose: Not Given Metformin HCl (Glucophage) 500 mg PO BIDCC [facility] Last Admin: 10/20/18 16:27 Dose: 500 mg Metoprolol Tartrate (Lopressor) 12.5 mg PO BID [facility] Last Admin: 10/20/18 09:14 Dose: 12.5 mg Ondansetron HCl (Zofran Inj) 4 mg IVP Q4H PRN PRN Reason: Nausea/Vomiting Last Admin: 10/20/18 05:08 Dose: 4 mg Oxycodone/Acetaminophen (Percocet 5/325 Mg Tab) 1 tab PO Q6H PRN PRN Reason: Pain, severe (8-10) Stop: 10/23/18 09:46 Last Admin: 10/20/18 16:27 Dose: 1 tab Pantoprazole Sodium (Protonix Ec Tab) 40 mg PO Q12H [facility] Last Admin: 10/20/18 09:14 Dose: 40 mg Rosuvastatin Calcium (Crestor) 5 mg PO HS [facility] Last Admin: 10/19/18 21:11 Dose: 5 mg Sennosides (Senokot Tab) 8.6 mg PO DAILY [facility] Last Admin: 10/20/18 09:15 Dose: Not Given Vitamin A (Vitamin A & D Oint Ud Foilpak) 1 ea TOP Q6 PRN PRN Reason: for dry lips Last Admin: 10/19/18 10:08 Dose: 1 ea - Labs Labs: 10/19/18 14:48 10/19/18 14:48 PT 16.5 SECONDS (9.7-12.2) H 10/14/18 06:09 INR 1.5 10/14/18 06:09 APTT 51 SECONDS (21-34) H D 10/14/18 06:09 Assessment and Plan - Assessment and Plan (Free Text) Assessment: 73 year old female admitted with appendicitis, post operative, tolerating diet, no distress. Discussed with DR Ledesma, [facility] when bed available.
--- NOTE | 2018-10-21 06:01 | DS ---
REASON FOR ADMISSION: This is a 73-year-old -[place] female with history of multiple medical problems who was admitted for abdominal pain secondary to appendicitis. COURSE OF HOSPITALIZATION: The patient was admitted to intensive care unit, and also she was found to be anemic with melena. The patient had a laparotomy with appendectomy and lysis of adhesions. The patient also had an EGD done by Dr. Betancur during this admission that did not show any active bleeding. The patient's hospital stay was complicated with colitis and the patient was being treated with Cipro and Flagyl. The patient was started on oral medications and fluids, and she tolerated well. Diet was advanced and the patient was discharged to transitional care unit at [facility] for deconditioning and physical therapy. FINAL DIAGNOSES: Appendicitis, colitis, type 2 diabetes mellitus, hypertension, hypercholesterolemia, peripheral vascular disease. Kd Ledesma MD
== END 2018-10-20 21:31 | DRG 335 ==
LOC: C.ER 15:04 → C.9E 18:27 → C.6T 19:24 → C.9I 10-08 15:49 → C.5S 10-15 08:00
PROVIDERS: ADMIT Internal Medicine; ATTEND Internal Medicine
PROC: 0DNW0ZZ Release Peritoneum, Open Approach (ICD-10-PCS; 2018-10-08)
PROC: 30233N1 Transfusion of Nonautologous Red Blood Cells into Peripheral Vein, Percutaneous Approach (ICD-10-PCS; 2018-10-08)
PROC: 0DTJ0ZZ Resection of Appendix, Open Approach (ICD-10-PCS; principal; 2018-10-08 18:45)
PROC: 0DB68ZX Excision of Stomach, Via Natural or Artificial Opening Endoscopic, Diagnostic (ICD-10-PCS; 2018-10-14)
DX: K35.80 Unspecified acute appendicitis (principal); I21.A1 Myocardial infarction type 2; D62 Acute posthemorrhagic anemia; K92.1 Melena; K66.0 Peritoneal adhesions (postprocedural) (postinfection); K22.2 Esophageal obstruction; K29.50 Unspecified chronic gastritis without bleeding; D73.89 Other diseases of spleen; I11.0 Hypertensive heart disease with heart failure; E11.51 Type 2 diabetes mellitus with diabetic peripheral angiopathy without gangrene; I25.10 Atherosclerotic heart disease of native coronary artery without angina pectoris; K44.9 Diaphragmatic hernia without obstruction or gangrene; E83.42 Hypomagnesemia; E78.5 Hyperlipidemia, unspecified; E78.00 Pure hypercholesterolemia, unspecified; F17.210 Nicotine dependence, cigarettes, uncomplicated; Z79.4 Long term (current) use of insulin

== ENCOUNTER 2018-10-23 03:54 | Inpatient (IN) | payer MEDICARE ==
[2018-10-23 03:55] VITALS: BMI 22.5
--- NOTE | 2018-10-23 05:27 | C.PDOC ---
History Of Present Illness 73 y/o female pt is a transfer from [facility] to [facility] for admission. Pt c/o abdominal pain s/p appendectomy. Please refer to ER note from [facility] for more information. Time Seen by Provider: 10/23/18 04:09 Chief Complaint (Nursing): Abdominal Pain History Per: Patient History/Exam Limitations: no limitations Onset/Duration Of Symptoms: Days Current Symptoms Are (Timing): Still Present Past Medical History Reviewed: Historical Data, Nursing Documentation, Vital Signs Vital Signs: Last Vital Signs Temp 98 F 10/23/18 04:35 Pulse 110 H 10/23/18 04:35 Resp 22 10/23/18 04:35 BP 136/63 10/23/18 03:56 Pulse Ox 98 10/23/18 04:35 - Medical History PMH: Anxiety, Arthritis, Asthma, Bronchitis, COPD, Diabetes, Diverticulitis, Fractures (RT.FOOT/CASTED NO OR), HTN, Hypercholesterolemia, Osteoporosis, Pneumonia Surgical History: Endoscopy - [facility] Procedures ASSISTANCE WITH RESPIRATORY VENTILATION, 24-96 HRS (02/17/17) BYPASS L FEM ART TO R FEMOR A WITH SYNTH SUB, OPEN APPROACH (02/09/17) CLOSED ENDOSCOPIC BIOPSY OF LARGE INTESTINE (07/31/15) DILATION OF R FEM ART WITH INTRALUM DEV, PERC APPROACH (11/06/17) ENDOSCOPIC CONTROL OF GASTRIC OR DUODENAL BLEEDING (07/24/15) ESOPHAGOGASTRODUODENOSCOPY [EGD] W/CLOSED BIOPSY (04/22/13) EXCISION OF STOMACH, ENDO, DIAGN (10/07/18) EXERCISE TREATMENT OF MUSCULOSK WHOLE USING ASSIST EQUIPMENT (02/22/18) EXERCISE TRMT MUSCULOSK LOW BACK/LE W ASSIST EQUIP (03/09/17) FLUOROSCOPY OF LEFT HEART USING LOW OSMOLAR CONTRAST (08/06/18) FLUOROSCOPY OF MULT COR ART USING L OSM CONTRAST (08/06/18) GAIT TRAINING/AMBULAT TREATMENT USING ASSIST EQUIPMENT (11/11/17) GAIT TRAINING/FUNCTIONAL AMBULATION TREATMENT (02/17/17) HOME MANAGEMENT TREATMENT (02/17/17) HOME MANAGEMENT TREATMENT USING ASSIST EQUIPMENT (02/22/18) INTRODUCE OF OTH ANTI-INFECT INTO PERIPH VEIN, PERC APPROACH (02/22/18) MEASURE OF CARDIAC SAMPL & PRESSURE, L HEART, PERC APPROACH (08/06/18) RELEASE PERITONEUM, OPEN APPROACH (10/07/18) RESECTION OF APPENDIX, OPEN APPROACH (10/07/18) THERAPEUTIC EXERCISE TREATMENT OF MUSCULOSK LOW BACK/LE (02/17/17) TRANSFUSE NONAUT RED BLOOD CELLS IN PERIPH VEIN, PERC (10/07/18) Family History: States: Unknown Family Hx - Social History Hx Tobacco Use: Yes (Former.) Hx Alcohol Use: No Hx Substance Use: No - Immunization History Hx Tetanus Toxoid Vaccination: No Hx Influenza Vaccination: Yes (2018) Hx Pneumococcal Vaccination: Yes Review Of Systems Except As Marked, All Systems Reviewed And Found Negative. Constitutional: Positive for: Other (Transfer from [facility]) Gastrointestinal: Positive for: Abdominal Pain Physical Exam - Physical Exam Appears: Well, Non-toxic, No Acute Distress Skin: Warm, Dry Head: Normacephalic Eye(s): bilateral: Normal Inspection, EOMI Chest: Symmetrical Cardiovascular: Rhythm Regular Respiratory: Normal Breath Sounds Gastrointestinal/Abdominal: Soft, No Tenderness, Other (sugerucal dejan on abdomen; no drainage) Neurological/Psych: Oriented x3, Normal Speech ED Course And Treatment O2 Sat by Pulse Oximetry: 98 (RA) Pulse Ox Interpretation: Normal Medical Decision Making Medical Decision Making: Impression: transer pt; abd pain s/p appendectomy plans: -- surgery consult Disposition - Disposition Disposition: HOSPITALIZED Disposition Time: 04:10 Condition: STABLE - Clinical Impression Clinical Impression: Abdominal abscess - Scribe Statement The provider has reviewed the documentation as recorded by the Scribe Dulce Benedict Provider Attestation: All medical record entries made by the Scribe were at my direction and personally dictated by me. I have reviewed the chart and agree that the record accurately reflects my personal performance of the history, physical exam, medical decision making, and the department course for this patient. I have also personally directed, reviewed, and agree with the discharge instructions and disposition.
--- NOTE | 2018-10-23 09:59 | CP.PCM.CON ---
History of Present Illness - History of Present Illness History of Present Illness: General Surgery Consult Re: abdominal fluid collection HPI: 73F well known to this surgical service after open appendectomy on October 08, 2018. She was transferred from [place] where she is undergoing acute rehab in the TCU. She reported increased pain at the incision site associated with non-bloody, non-bilious vomiting. Her pain has been present since surgery but was not this severe. +BMs. + loss of appetite. Denies fever, chills, chest pain, shortness of breath diarrhea, hematochezia. Currently pain has improved. PMH: Anxiety, Arthritis, Asthma, Bronchitis, COPD, CAD, PVD, Diabetes, HTN, HLD, Osteoporosis PSH: umbilical hernia, hysterectomy, partial colectomy, L to R fem bypass, open appendectomy SH: Former tobacco use, No EtOH or drug use. FH: noncontributory All: PCN, sulfa Meds: See MAR, On plavix and pletal Review of Systems - Review of Systems All systems: reviewed and no additional remarkable complaints except (as per HPI) Past Patient History - Infectious Disease Hx of Infectious Diseases: None - Past Medical History & Family History Past Medical History?: Yes - Past Social History Smoking Status: Former Smoker - CARDIAC Hx Hypercholesterolemia: Yes Hx Hypertension: Yes - PULMONARY Hx Asthma: Yes Hx Bronchitis: Yes Hx Chronic Obstructive Pulmonary Disease (COPD): Yes Hx Pneumonia: Yes - NEUROLOGICAL Hx Neurological Disorder: No - HEENT Hx HEENT Problems: Yes Other/Comment: WEAR GLASSES - RENAL Hx Chronic Kidney Disease: No - ENDOCRINE/METABOLIC Hx Diabetes Mellitus Type 2: Yes - HEMATOLOGICAL/ONCOLOGICAL Hx Human Immunodeficiency Virus (HIV): No - INTEGUMENTARY Hx Dermatological Problems: No - MUSCULOSKELETAL/RHEUMATOLOGICAL Hx Arthritis: Yes Hx Fractures: Yes (RT.FOOT/CASTED NO OR) Hx Osteoporosis: Yes - GASTROINTESTINAL Hx Diverticulitis: Yes - GENITOURINARY/GYNECOLOGICAL Hx Genitourinary Disorders: No - PSYCHIATRIC Hx Anxiety: Yes Hx Substance Use: No - SURGICAL HISTORY Hx Surgeries: Yes Hx Angiogram: Yes (Stenting bilateral legs) Hx Breast Biopsy: Yes (RT. 11 yrs old) Hx Herniorrhaphy: Yes (UMBILICAL) Hx Hysterectomy: Yes (RYANN) Hx Orthopedic Surgery: Yes (OMAR. BUNIONECTOMY) Hx Tubal Ligation: Yes - ANESTHESIA Hx Anesthesia: Yes Hx Anesthesia Reactions: No (Pateint denies) Hx Malignant Hyperthermia: No Meds Allergies/Adverse Reactions: Allergies Allergy/AdvReac Type Severity Reaction Status Date / Time Penicillins Allergy Intermediate SWELLING Verified 10/22/18 16:32 Sulfa (Sulfonamide Allergy Intermediate RASH Verified 10/22/18 16:32 Antibiotics) tomato AdvReac Intermediate GI UPSET Verified 10/22/18 16:32 - Medications Medications: Current Medications Insulin Human Regular (Novolin R) 0 unit SC ACHS [facility]; Protocol Morphine Sulfate (Morphine) 2 mg IVP Q4 PRN PRN Reason: Pain, Mild (1-3) Last Admin: 10/23/18 07:54 Dose: 2 mg Physical Exam - Constitutional Appears: Non-toxic, No Acute Distress - Head Exam Head Exam: ATRAUMATIC, NORMOCEPHALIC - Eye Exam Eye Exam: EOMI. absent: Scleral icterus - ENT Exam ENT Exam: Mucous Membranes Moist Additional comments: trachea midline - Neck Exam Neck exam: Positive for: Full Rom. Negative for: Lymphadenopathy - Respiratory Exam Respiratory Exam: NORMAL BREATHING PATTERN. absent: Respiratory Distress - Cardiovascular Exam Cardiovascular Exam: RRR, +S1, +S2 - GI/Abdominal Exam GI & Abdominal Exam: Soft, Tenderness (most in lower midline along incision). absent: Distended, Firm, Guarding, Rebound, Rigid Additional comments: incision with cloudy yellow fluid draining from near umbilicus dejan in place - Rectal Exam Rectal Exam: Deferred - Extremities Exam Extremities exam: Positive for: normal capillary refill. Negative for: calf tenderness, pedal edema - Back Exam Back exam: absent: CVA tenderness (L), CVA tenderness (R) - Neurological Exam Neurological exam: Alert, Oriented x3 - Psychiatric Exam Psychiatric exam: Normal Affect, Normal Mood - Skin Skin Exam: Warm Results - Vital Signs Recent Vital Signs: Last Vital Signs Temp 98.0 F 10/23/18 04:50 Pulse 99 H 10/23/18 04:50 Resp 21 10/23/18 04:50 BP 145/71 10/23/18 04:50 Pulse Ox 98 10/23/18 05:56 - Labs Labs: Laboratory Results - last 24 hr 10/23/18 08:00 POC Glucose (mg/dL) 186 H - Imaging and Cardiology CT scan - abdomen Status: Image reviewed by me, Report reviewed by me Assessment & Plan - Assessment and Plan (Free Text) Assessment: 73F with abdominal pain s/p appendectomy with 5cm fluid collection in pelvis Plan: Possible IR drainage IV Abx: was on cipro and flagyl post op Rehydrate Pain control F/U blood culture from [place] Will consider wound culture if we remove some dejan D/W Dr. Chucho Jackson PGY4
[2018-10-23] MEDS: Multivitamin With Minerals Tab PO SCH (11:19)
[2018-10-23] MEDS: Pantoprazole 40 mg EC Tab PO SCH (11:19)
[2018-10-23] MEDS: (Novolin R) Insulin Human Regular 100 units/ml vial SC SCH ×3 (11:43→22:24)
[2018-10-23 14:03] LABS: BASO # 0.1 K/uL (0.0-0.2); BASO % 0.9 % (0.0-2.0); EOS # 0.1 K/uL (0.0-0.7); EOS % 0.9 % (0.0-4.0); HEMOGLOBIN 8.4 g/dL (11.0-16.0); LYMPH # 1.2 K/uL (1.0-4.3); LYMPH % 9.3 % (20.0-40.0); MEAN CELL VOLUME 90.9 fL (81.0-99.0); MEAN CORPUSCULAR HEMOGLOBIN 30.1 pg (27.0-31.0); MEAN CORPUSCULAR HGB CONC 33.1 g/dL (33.0-37.0); MEAN PLATELET VOLUME 8.4 fL (7.2-11.7); MONO # 1.2 K/uL (0.0-0.8); MONO % 9.3 % (0.0-10.0); NEUT % 79.6 % (50.0-75.0); NRBC % 0.1 % (0.0-2.0); PLATELET COUNT 378 K/uL (130-400); RBC 2.78 Mil/uL (3.80-5.20); RED CELL DISTRIBUTION WIDTH 17.2 % (11.5-14.5); WHITE BLOOD COUNT 12.5 K/uL (4.8-10.8)
[2018-10-23 14:13] LABS: INR 1.2; PROTHROMBIN TIME 12.8 SECONDS (9.7-12.2)
[2018-10-23 14:24] LABS: BASOPHIL 1 % (0-2); NEUTROPHIL 77 % (50-75); TOTAL CELLS COUNTED 100
[2018-10-23 14:25] LABS: ANISOCYTOSIS SLIGHT; LYMPHOCYTE 12 % (20-40); MONOCYTE 10 % (0-10); PLATELET ESTIMATE NORMAL (NORMAL)
[2018-10-23 14:26] LABS: MICROCYTOSIS SLIGHT; OVALOCYTES SLIGHT; POIKILOCYTOSIS SLIGHT; POLYCHROMIC SLIGHT
[2018-10-23 14:42] LABS: ALB/GLOB RATIO 1.1 (1.0-2.1); ALBUMIN 3.2 g/dL (3.5-5.0); ALT/SGPT 16 U/L (9-52); AST/SGOT 22 U/L (14-36); BLOOD UREA NITROGEN 15 mg/dL (7-17); CALCIUM 8.7 mg/dl (8.6-10.4); GFR NON-AFRICAN AMERICAN > 60
[2018-10-23] MEDS: Cilostazol 50 mg Tab UD PO SCH (18:30)
[2018-10-23] MEDS: Docusate-Senna 50 mg-8.6 mg Tab PO SCH (22:36)
[2018-10-24] MEDS: (Novolin R) Insulin Human Regular 100 units/ml vial SC SCH ×4 (08:33→21:51)
--- NOTE | 2018-10-24 08:33 | CP.PCM.PN ---
Subjective - Date & Time of Evaluation Date of Evaluation: 10/24/18 Time of Evaluation: 08:30 - Subjective Subjective: Gen Surg: Dr Rankin Pt S&E. NAEO. Reports pain is unchanged. Tolerating diet. + flatus, + BM. Plan for IR consult Objective - Vital Signs/Intake and Output Vital Signs (last 24 hours): Temp Pulse Resp BP Pulse Ox 98.7 F 105 H 20 124/67 95 10/24/18 07:32 10/24/18 07:32 10/24/18 07:32 10/24/18 07:32 10/24/18 07:32 Intake and Output: 10/24/18 10/24/18 06:59 18:59 Intake Total 400 300 Balance 400 300 - Medications Medications: Current Medications Cilostazol (Pletal) 50 mg PO BID [facility] Last Admin: 10/23/18 18:30 Dose: 50 mg Furosemide (Lasix) 20 mg PO DAILY [facility] Heparin Sodium (Porcine) (Heparin) 5,000 units SC Q12 [facility] Last Admin: 10/23/18 22:36 Dose: 5,000 units Ciprofloxacin (Cipro 400mg/200ml Dsw) 400 mg in 200 mls @ 133 mls/hr IVPB Q12H [facility]; Protocol Metronidazole (Flagyl) 500 mg in 100 mls @ 100 mls/hr IVPB Q8H [facility]; Protocol Insulin Human Regular (Novolin R) 0 unit SC ACHS [facility]; Protocol Last Admin: 10/23/18 22:24 Dose: Not Given Metoprolol Tartrate (Lopressor) 12.5 mg PO BID [facility] Last Admin: 10/23/18 17:16 Dose: 12.5 mg Morphine Sulfate (Morphine) 2 mg IVP Q4 PRN PRN Reason: Pain, Mild (1-3) Last Admin: 10/24/18 03:31 Dose: 2 mg Multivitamins/Minerals (Therapeutic-M Tab) 1 tab PO DAILY [facility] Last Admin: 10/23/18 11:19 Dose: 1 tab Pantoprazole Sodium (Protonix Ec Tab) 40 mg PO DAILY [facility] Last Admin: 10/23/18 11:19 Dose: 40 mg Senna/Docusate Sodium (Senokot S 50 Mg-8.6 Mg) 1 tab PO HS [facility] Last Admin: 10/23/18 22:36 Dose: 1 tab Sitagliptin Phosphate (Januvia) 50 mg PO DAILY [facility] - Labs Labs: 10/23/18 13:59 10/23/18 13:59 PT 12.8 SECONDS (9.7-12.2) H 10/23/18 13:59 INR 1.2 10/23/18 13:59 APTT 27 SECONDS (21-34) 10/23/18 13:59 - Constitutional Appears: Non-toxic, No Acute Distress - ENT Exam ENT Exam: absent: Mucous Membranes Moist - Respiratory Exam Respiratory Exam: absent: Respiratory Distress - Cardiovascular Exam Cardiovascular Exam: Tachycardia (low grade) - GI/Abdominal Exam GI & Abdominal Exam: Soft, Tenderness (lower quadrants). absent: Distended, Firm - Rectal Exam Rectal Exam: absent: Deferred - Neurological Exam Neurological Exam: Alert, Awake, Oriented x3 - Psychiatric Exam Psychiatric exam: Normal Affect Assessment and Plan - Assessment and Plan (Free Text) Assessment: 73F with pelvic abscess Plan: cont abx IR consult placed for drainage will follow closely d/w Dr Chucho arredondo, PGY4
[2018-10-24] MEDS: metroNIDAZOLE IV 500 mg/100 ml 500 MG/100 ML BAG IVPB SCH ×2 (08:34→16:22)
[2018-10-24 08:39] LABS: BASO # 0.1 K/uL (0.0-0.2); BASO % 0.9 % (0.0-2.0); EOS # 0.2 K/uL (0.0-0.7); HEMOGLOBIN 7.8 g/dL (11.0-16.0); LYMPH # 1.3 K/uL (1.0-4.3); LYMPH % 12.5 % (20.0-40.0); MEAN CELL VOLUME 91.5 fL (81.0-99.0); MEAN CORPUSCULAR HGB CONC 33.9 g/dL (33.0-37.0); MEAN PLATELET VOLUME 8.2 fL (7.2-11.7); MONO # 1.1 K/uL (0.0-0.8); MONO % 11.2 % (0.0-10.0); NEUT # 7.4 K/uL (1.8-7.0); NEUT % 73.4 % (50.0-75.0); NRBC % 0.1 % (0.0-2.0); RBC 2.53 Mil/uL (3.80-5.20); RED CELL DISTRIBUTION WIDTH 17.3 % (11.5-14.5); WHITE BLOOD COUNT 10.2 K/uL (4.8-10.8)
[2018-10-24 08:44] LABS: BLOOD UREA NITROGEN 15 mg/dL (7-17); CALCIUM 9.1 mg/dl (8.6-10.4); GFR NON-AFRICAN AMERICAN > 60
[2018-10-24] MEDS: Cilostazol 50 mg Tab UD PO SCH ×2 (09:27→17:58)
[2018-10-24] MEDS: Pantoprazole 40 mg EC Tab PO SCH (09:27)
[2018-10-24] MEDS: Ciprofloxacin 400mg/200ml D5W 400 MG/200 ML BAG IVPB SCH ×2 (09:28→21:52)
[2018-10-24] MEDS: Multivitamin With Minerals Tab PO SCH (09:28)
[2018-10-24] MEDS: Docusate-Senna 50 mg-8.6 mg Tab PO SCH (21:54)
[2018-10-25] MEDS: metroNIDAZOLE IV 500 mg/100 ml 500 MG/100 ML BAG IVPB SCH ×3 (00:35→17:58)
--- NOTE | 2018-10-25 07:11 | CP.PCM.PN ---
Subjective - Date & Time of Evaluation Date of Evaluation: 10/25/18 Time of Evaluation: 07:11 - Subjective Subjective: General Surgery Progress Note For Dr. Rankin This 73F was seen and examined this AM at bedside no acute events occurred overnight. There is drainage from the midline abdominal wound. She continues to complain of abdominal pain. No fevers or chills overnight. Objective - Vital Signs/Intake and Output Vital Signs (last 24 hours): Temp Pulse Resp BP Pulse Ox 98.9 F 92 H 20 111/67 97 10/24/18 23:17 10/24/18 23:17 10/24/18 23:17 10/24/18 23:17 10/24/18 23:17 Intake and Output: 10/25/18 10/25/18 06:59 18:59 Intake Total 400 Balance 400 - Medications Medications: Current Medications Cilostazol (Pletal) 50 mg PO BID [facility] Last Admin: 10/24/18 17:58 Dose: 50 mg Furosemide (Lasix) 20 mg PO DAILY [facility] Last Admin: 10/24/18 09:27 Dose: 20 mg Heparin Sodium (Porcine) (Heparin) 5,000 units SC Q12 [facility] Last Admin: 10/24/18 09:28 Dose: 5,000 units Ciprofloxacin (Cipro 400mg/200ml Dsw) 400 mg in 200 mls @ 133 mls/hr IVPB Q12H [facility]; Protocol Last Admin: 10/24/18 21:52 Dose: 133 mls/hr Metronidazole (Flagyl) 500 mg in 100 mls @ 100 mls/hr IVPB Q8H [facility]; Protocol Last Admin: 10/25/18 00:35 Dose: 100 mls/hr Insulin Human Regular (Novolin R) 0 unit SC ACHS [facility]; Protocol Last Admin: 10/24/18 21:51 Dose: 3 units Metoprolol Tartrate (Lopressor) 12.5 mg PO BID [facility] Last Admin: 10/24/18 17:58 Dose: 12.5 mg Morphine Sulfate (Morphine) 2 mg IVP Q4 PRN PRN Reason: Pain, Mild (1-3) Last Admin: 10/24/18 22:46 Dose: 2 mg Multivitamins/Minerals (Therapeutic-M Tab) 1 tab PO DAILY [facility] Last Admin: 10/24/18 09:28 Dose: 1 tab Pantoprazole Sodium (Protonix Ec Tab) 40 mg PO DAILY [facility] Last Admin: 10/24/18 09:27 Dose: 40 mg Senna/Docusate Sodium (Senokot S 50 Mg-8.6 Mg) 1 tab PO HS [facility] Last Admin: 10/24/18 21:54 Dose: Not Given Sitagliptin Phosphate (Januvia) 50 mg PO DAILY [facility] Last Admin: 10/24/18 09:28 Dose: 50 mg - Labs Labs: 10/24/18 08:29 10/24/18 08:29 PT 12.8 SECONDS (9.7-12.2) H 10/23/18 13:59 INR 1.2 10/23/18 13:59 APTT 27 SECONDS (21-34) 10/23/18 13:59 - Constitutional Appears: Non-toxic, No Acute Distress - Head Exam Head Exam: ATRAUMATIC, NORMOCEPHALIC - Eye Exam Eye Exam: EOMI - ENT Exam ENT Exam: Mucous Membranes Moist - Respiratory Exam Respiratory Exam: NORMAL BREATHING PATTERN - Cardiovascular Exam Cardiovascular Exam: +S1, +S2 - GI/Abdominal Exam GI & Abdominal Exam: Soft, Tenderness. absent: Distended, Firm, Guarding, Rigid Additional comments: Serous drainage noted from the center of the abdominal incision Assessment and Plan - Assessment and Plan (Free Text) Assessment: 73F with pelvic abscess Plan: Continue ABX Followup IR drainage today d/w Dr Chucho Ayers PGY3
[2018-10-25] MEDS: (Novolin R) Insulin Human Regular 100 units/ml vial SC SCH ×4 (07:49→21:31)
--- NOTE | 2018-10-25 07:57 | HP ---
HISTORY OF PRESENT ILLNESS: This is a 73-year-old female with history of multiple medical problems including recent laparotomy for appendectomy and lysis of intra-abdominal adhesions, was in transitional care unit for deconditioning and rehabilitation when she started to have abdominal pain. The patient was brought to emergency room for evaluation where she was found to have fluid collection at the site of the surgical wound. The patient was admitted to medical floor as per Dr. Rankin. Other review of system is negative. ALLERGIES: POSITIVE ALLERGY FOR PENICILLIN AND SULFA. MEDICATIONS: Medications were reviewed as per MAR and ordered. SOCIAL HISTORY: Smoker. No EtOH or substance abuse. FAMILY HISTORY: Noncontributory. PAST MEDICAL HISTORY: Hypertension, type 2 diabetes mellitus, peripheral vascular disease. PHYSICAL EXAMINATION: GENERAL: The patient is in bed, not in any cardiopulmonary distress at the time of this examination. VITAL SIGNS: Blood pressure 114/63, temperature 97.6, respiratory rate 20, and pulse 100. HEENT: Pupils equal and reactive to light. Normal-appearing mucosa of the conjunctivae, oropharynx, and nasal membrane mucosa. NECK: Supple. No JVD. No carotid bruit. No lymph node. No thyromegaly. CHEST AND LUNGS: Bilateral symmetrical expansion. Good air exchange. No rales. No rhonchi. CARDIOVASCULAR SYSTEM: PMI not localized. S1 and S2. No additional sounds. ABDOMEN: Normoactive bowel sounds. No tenderness. No organomegaly. No masses. EXTREMITIES: No cyanosis, clubbing, no edema. CENTRAL NERVOUS SYSTEM: Alert, awake, oriented x2. No neurological deficit could be appreciated. ASSESSMENT: Infected abdominal wall surgical site, type 2 diabetes mellitus, peripheral vascular disease. PLAN: Follow surgical recommendations. Continue current medications. Resume the patient's home medications and resume diet as tolerated. Kd Ledesma MD
--- NOTE | 2018-10-25 08:01 | PN ---
DATE: 10/24/2018 SUBJECTIVE: The patient is seen today, 10/24/2018. She is not in any cardiopulmonary distress. PHYSICAL EXAMINATION: VITAL SIGNS: Blood pressure 105/56, temperature 98.4, respiratory rate 20, and pulse 104. HEENT: Pupils equal and reactive to light. Normal-appearing mucosa of the conjunctivae, oropharynx, and nasal membrane mucosa. NECK: Supple. No JVD. No carotid bruit. No lymph node. No thyromegaly. CHEST AND LUNGS: Bilateral symmetrical expansion. Good air exchange. No rales. No rhonchi. CARDIOVASCULAR SYSTEM: PMI not localized. S1, S2. No additional sounds. ABDOMEN: The patient has tenderness at the surgical site. EXTREMITIES: No cyanosis, no clubbing, no edema. CENTRAL NERVOUS SYSTEM: Alert, awake, and oriented x2. No neurological deficit could be appreciated. ASSESSMENT: 1. Possible infected surgical wound sites. 2. Type 2 diabetes mellitus. 3. Hypertension. 4. Peripheral vascular disease. PLAN: Continue current antibiotics ordered by Surgery, and for I and D as per Surgery. Cortney MD Baltazar
[2018-10-25 09:12] LABS: BASO # 0.1 K/uL (0.0-0.2); BASO % 0.8 % (0.0-2.0); EOS # 0.2 K/uL (0.0-0.7); EOS % 1.7 % (0.0-4.0); HEMOGLOBIN 7.7 g/dL (11.0-16.0); LYMPH % 10.1 % (20.0-40.0); MEAN CELL VOLUME 91.6 fL (81.0-99.0); MEAN CORPUSCULAR HEMOGLOBIN 30.2 pg (27.0-31.0); MEAN PLATELET VOLUME 8.1 fL (7.2-11.7); MONO # 1.1 K/uL (0.0-0.8); MONO % 10.6 % (0.0-10.0); NEUT % 76.8 % (50.0-75.0); NRBC % 0.1 % (0.0-2.0); RBC 2.56 Mil/uL (3.80-5.20); WHITE BLOOD COUNT 10.4 K/uL (4.8-10.8)
[2018-10-25] MEDS: Cilostazol 50 mg Tab UD PO SCH ×2 (09:30→17:58)
[2018-10-25] MEDS: Multivitamin With Minerals Tab PO SCH (09:31)
[2018-10-25] MEDS: Pantoprazole 40 mg EC Tab PO SCH (09:31)
[2018-10-25 09:33] LABS: BLOOD UREA NITROGEN 11 mg/dL (7-17); GFR NON-AFRICAN AMERICAN > 60
[2018-10-25] MEDS: Ciprofloxacin 400mg/200ml D5W 400 MG/200 ML BAG IVPB SCH ×2 (09:34→21:28)
[2018-10-25] MEDS ORDERED: Midazolam 2 MG/2 ML VIAL ONE (13:36)
--- NOTE | 2018-10-25 14:13 | PCM.SURG1 ---
Surgeon's Initial Post Op Note - Surgeon's Notes Surgeon: Mars Knutson MD Supervisor Braiding: NONE Type of Anesthesia: IV Sedation Pre-Operative Diagnosis: Pelvic abscess Operative Findings: CT showed collection within the dependent pelvis Post-Operative Diagnosis: Pelvic abscess Operation Performed: CT guided drainage and placement of an 8.5 Fr pigtail drainage catheter. Specimen/Specimens Removed: 40 cc of dark blood Estimated Blood Loss: EBL {In ML}: 3 Drains Used: Toby Urban Post-Op Condition: Fair Date of Surgery/Procedure: 10/25/18 Time of Surgery/Procedure: 14:00
--- NOTE | 2018-10-25 14:21 | CT ---
PROCEDURE: Date of procedure: 10/25/2018 Procedure: 1. pelvic abscess drainage with CT guidance, CPT 28112 Medications: The patient received IV sedation administered by anesthesiologist Radiation: 368.60 MGy-cm HISTORY: Complex pelvic fluid collection. TECHNIQUE: Following informed consent procedure time-out, patient is placed prone on the CT table and non contrast CT was performed which showed a large complex pelvic collection. The skin localizer was placed on the patient's right buttock and a repeat CT scan performed. The skin was marked, prepped, and draped in the usual sterile fashion. Under CT guidance, a [employer] drainage catheter was advanced into the collection. Upon return of purulent drainage, the catheter exchanged over an 035 guidewire and the tract was dilated to accommodate an 8.5 Lao pigtail drainage catheter formed within the collection. The position of the 8.5 Fr drainage catheter was confirmed with repeat CT scan. 40 cubic centimeters of dark bloody drainage was removed and sent for culture and sensitivity. The catheter was secured the patient's skin. A dressing was applied. IMPRESSION: CT-guided abscess drainage within the placement of an 8.5 Lao drainage catheter with abscess. The fluid specimen was sent for culture and sensitivity.
[2018-10-25] MEDS: Docusate-Senna 50 mg-8.6 mg Tab PO SCH ×2 (21:30→23:06)
[2018-10-26] MEDS: metroNIDAZOLE IV 500 mg/100 ml 500 MG/100 ML BAG IVPB SCH ×3 (00:26→17:57)
[2018-10-26] MEDS: (Novolin R) Insulin Human Regular 100 units/ml vial SC SCH ×4 (08:25→21:27)
[2018-10-26] MEDS: Pantoprazole 40 mg EC Tab PO SCH (10:59)
[2018-10-26] MEDS: Cilostazol 50 mg Tab UD PO SCH ×2 (10:59→17:57)
[2018-10-26] MEDS: Multivitamin With Minerals Tab PO SCH (10:59)
[2018-10-26] MEDS: Ciprofloxacin 400mg/200ml D5W 400 MG/200 ML BAG IVPB SCH ×2 (11:00→21:27)
--- NOTE | 2018-10-26 11:30 | CP.PCM.PN ---
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 Objective - Vital Signs/Intake and Output Vital Signs (last 24 hours): Temp Pulse Resp BP Pulse Ox 98.8 F 109 H 20 115/70 98 10/26/18 07:48 10/26/18 07:48 10/26/18 07:48 10/26/18 10:59 10/26/18 07:48 Intake and Output: 10/26/18 10/26/18 06:59 18:59 Intake Total 820 Output Total 140 Balance 680 - Medications Medications: Current Medications Alprazolam (Xanax) 0.25 mg PO BID PRN PRN Reason: Anxiety Stop: 11/02/18 10:29 Cilostazol (Pletal) 50 mg PO BID [facility] Last Admin: 10/26/18 10:59 Dose: 50 mg Furosemide (Lasix) 20 mg PO DAILY [facility] Last Admin: 10/26/18 10:59 Dose: 20 mg Heparin Sodium (Porcine) (Heparin) 5,000 units SC Q12 [facility] Last Admin: 10/24/18 09:28 Dose: 5,000 units Ciprofloxacin (Cipro 400mg/200ml Dsw) 400 mg in 200 mls @ 133 mls/hr IVPB Q12H [facility]; Protocol Last Admin: 10/26/18 11:00 Dose: 133 mls/hr Metronidazole (Flagyl) 500 mg in 100 mls @ 100 mls/hr IVPB Q8H [facility]; Protocol Last Admin: 10/26/18 08:25 Dose: 100 mls/hr Insulin Human Regular (Novolin R) 0 unit SC ACHS [facility]; Protocol Last Admin: 10/26/18 08:25 Dose: 3 units Metoprolol Tartrate (Lopressor) 12.5 mg PO BID [facility] Last Admin: 10/26/18 10:59 Dose: 12.5 mg Morphine Sulfate (Morphine) 2 mg IVP Q4 PRN PRN Reason: Pain, Mild (1-3) Last Admin: 10/26/18 00:24 Dose: 2 mg Multivitamins/Minerals (Therapeutic-M Tab) 1 tab PO DAILY [facility] Last Admin: 10/26/18 10:59 Dose: 1 tab Pantoprazole Sodium (Protonix Ec Tab) 40 mg PO DAILY [facility] Last Admin: 10/26/18 10:59 Dose: 40 mg Senna/Docusate Sodium (Senokot S 50 Mg-8.6 Mg) 1 tab PO HS [facility] Last Admin: 10/25/18 23:06 Dose: Not Given Sitagliptin Phosphate (Januvia) 50 mg PO DAILY [facility] Last Admin: 10/26/18 10:59 Dose: 50 mg - Labs Labs: 10/25/18 08:58 10/25/18 08:58 PT 12.8 SECONDS (9.7-12.2) H 10/23/18 13:59 INR 1.2 10/23/18 13:59 APTT 27 SECONDS (21-34) 10/23/18 13:59 Assessment and Plan - Assessment and Plan (Free Text) Assessment: This request was addressed by Dr. Mars Knutson.
[2018-10-26 11:43] LABS: BASO # 0.1 K/uL (0.0-0.2); BASO % 0.6 % (0.0-2.0); EOS # 0.1 K/uL (0.0-0.7); EOS % 1.4 % (0.0-4.0); HEMOGLOBIN 7.9 g/dL (11.0-16.0); LYMPH # 1.1 K/uL (1.0-4.3); MEAN CELL VOLUME 92.1 fL (81.0-99.0); MEAN CORPUSCULAR HEMOGLOBIN 30.6 pg (27.0-31.0); MEAN CORPUSCULAR HGB CONC 33.2 g/dL (33.0-37.0); MEAN PLATELET VOLUME 8.3 fL (7.2-11.7); MONO % 10.3 % (0.0-10.0); NEUT # 7.4 K/uL (1.8-7.0); NEUT % 76.7 % (50.0-75.0); NRBC % 0.1 % (0.0-2.0); RBC 2.58 Mil/uL (3.80-5.20); RED CELL DISTRIBUTION WIDTH 17.6 % (11.5-14.5); WHITE BLOOD COUNT 9.6 K/uL (4.8-10.8)
--- NOTE | 2018-10-26 19:09 | PN ---
DATE: 10/25/2018 SUBJECTIVE: The patient was seen on 10/25/2018. She was not in any cardiopulmonary distress. The patient was going to IR for aspiration of fluid collection. PHYSICAL EXAMINATION: VITAL SIGNS: Blood pressure was 148/78, temperature 97.7, respiratory rate 20, and pulse 100. HEENT: Pupils equal, reactive to light. Normal-appearing mucosa of the conjunctivae, oropharynx, and nasal membrane mucosa. NECK: Supple. No JVD. No carotid bruit. No lymph nodes. No thyromegaly. CHEST AND LUNGS: Bilateral symmetrical expansion. Good air exchange. No rales, no rhonchi. CARDIOVASCULAR SYSTEM: PMI not localized. S1 and S2. No additional sounds. ABDOMEN: Normoactive bowel sounds. There is lower abdominal tenderness with some distention. No organomegaly. No masses. EXTREMITIES: No cyanosis, no clubbing, no edema. 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 No neurological deficit could be appreciated. ASSESSMENT : 1. Postoperative fluid, possible postoperative surgical wound infection. 2. Hypertension. 3. Type 2 diabetes mellitus. 4. Peripheral vascular disease. PLAN: Continue current antibiotics and the patient is n.p.o. for an IR interventional procedure on 10/25/2018. Kd Ledesma MD
[2018-10-26] MEDS: Docusate-Senna 50 mg-8.6 mg Tab PO SCH (21:29)
[2018-10-27] MEDS: metroNIDAZOLE IV 500 mg/100 ml 500 MG/100 ML BAG IVPB SCH ×2 (00:24→08:03)
[2018-10-27] MEDS ORDERED: Albuterol-Ipratrop 3 mg / 0.5 (3 ml) UD INH STA (01:46)
--- NOTE | 2018-10-27 05:46 | CP.PCM.PN ---
Subjective - Date & Time of Evaluation Date of Evaluation: 10/26/18 Time of Evaluation: 07:00 - Subjective Subjective: General Surgery Progress For Dr. Rankin This 73F was seen and examined this Am at bedside no acute events overnight. Tolerating diet, abdominal pain slightly better no new complaints at this time. Objective - Vital Signs/Intake and Output Vital Signs (last 24 hours): Temp Pulse Resp BP Pulse Ox 97.8 F 100 H 16 117/63 97 10/27/18 00:00 10/27/18 00:00 10/27/18 00:00 10/27/18 00:00 10/27/18 00:00 Intake and Output: 10/26/18 10/27/18 18:59 06:59 Intake Total 950 Output Total 5 Balance 945 - Medications Medications: Current Medications Alprazolam (Xanax) 0.25 mg PO BID PRN PRN Reason: Anxiety Stop: 11/02/18 10:29 Last Admin: 10/26/18 22:19 Dose: 0.25 mg Cilostazol (Pletal) 50 mg PO BID [facility] Last Admin: 10/26/18 17:57 Dose: 50 mg Furosemide (Lasix) 20 mg PO DAILY [facility] Last Admin: 10/26/18 10:59 Dose: 20 mg Heparin Sodium (Porcine) (Heparin) 5,000 units SC Q12 [facility] Last Admin: 10/24/18 09:28 Dose: 5,000 units Ciprofloxacin (Cipro 400mg/200ml Dsw) 400 mg in 200 mls @ 133 mls/hr IVPB Q12H [facility]; Protocol Last Admin: 10/26/18 21:27 Dose: 133 mls/hr Metronidazole (Flagyl) 500 mg in 100 mls @ 100 mls/hr IVPB Q8H [facility]; Protocol Last Admin: 10/27/18 00:24 Dose: 100 mls/hr Insulin Human Regular (Novolin R) 0 unit SC ACHS [facility]; Protocol Last Admin: 10/26/18 21:27 Dose: Not Given Metoprolol Tartrate (Lopressor) 12.5 mg PO BID [facility] Last Admin: 10/26/18 17:54 Dose: 12.5 mg Morphine Sulfate (Morphine) 2 mg IVP Q4 PRN PRN Reason: Pain, Mild (1-3) Last Admin: 10/26/18 12:37 Dose: 2 mg Multivitamins/Minerals (Therapeutic-M Tab) 1 tab PO DAILY [facility] Last Admin: 10/26/18 10:59 Dose: 1 tab Pantoprazole Sodium (Protonix Ec Tab) 40 mg PO DAILY [facility] Last Admin: 10/26/18 10:59 Dose: 40 mg Senna/Docusate Sodium (Senokot S 50 Mg-8.6 Mg) 1 tab PO HS [facility] Last Admin: 10/26/18 21:29 Dose: 1 tab Sitagliptin Phosphate (Januvia) 50 mg PO DAILY [facility] Last Admin: 10/26/18 10:59 Dose: 50 mg - Labs Labs: 10/26/18 11:36 10/25/18 08:58 PT 12.8 SECONDS (9.7-12.2) H 10/23/18 13:59 INR 1.2 10/23/18 13:59 APTT 27 SECONDS (21-34) 10/23/18 13:59 - Constitutional Appears: Non-toxic, No Acute Distress - Head Exam Head Exam: ATRAUMATIC, NORMOCEPHALIC - Eye Exam Eye Exam: EOMI - ENT Exam ENT Exam: Mucous Membranes Moist - Respiratory Exam Respiratory Exam: NORMAL BREATHING PATTERN - Cardiovascular Exam Cardiovascular Exam: +S1, +S2 - GI/Abdominal Exam GI & Abdominal Exam: Soft, Tenderness. absent: Distended, Firm, Guarding, Rigid Additional comments: Abdominal pain with minimal drainage, pelvic drain with 140cc dark hematoma drainage - Neurological Exam Neurological Exam: Alert, Awake - Psychiatric Exam Psychiatric exam: Normal Affect, Normal Mood - Skin Skin Exam: Dry, Intact Assessment and Plan - Assessment and Plan (Free Text) Assessment: 73F with infected hmeatoma Pain control Montor outputs monitor clinical exam continue ABX further recs per Dr. Chucho Ayers PGY3
[2018-10-27 07:27] LABS: HEMOGLOBIN 9.6 g/dL (11.0-16.0); MEAN CELL VOLUME 93.2 fL (81.0-99.0); MEAN CORPUSCULAR HEMOGLOBIN 31.2 pg (27.0-31.0); MEAN CORPUSCULAR HGB CONC 33.5 g/dL (33.0-37.0); MEAN PLATELET VOLUME 8.1 fL (7.2-11.7); RBC 3.08 Mil/uL (3.80-5.20); RED CELL DISTRIBUTION WIDTH 16.5 % (11.5-14.5); WHITE BLOOD COUNT 11.9 K/uL (4.8-10.8)
--- NOTE | 2018-10-27 07:38 | CP.PCM.PN ---
Subjective - Date & Time of Evaluation Date of Evaluation: 10/27/18 Time of Evaluation: 07:34 - Subjective Subjective: General Surgery - Dr. Rankin Pt S&E. ELIZABETH. Pt states her abdominal pain is improved. She still has some mild pain in the LLQ abdomen. IR drain in place with brown drainage. No fevers/chills/sob/chest pain. Objective - Vital Signs/Intake and Output Vital Signs (last 24 hours): Temp Pulse Resp BP Pulse Ox 97.8 F 100 H 16 117/63 97 10/27/18 00:00 10/27/18 00:00 10/27/18 00:00 10/27/18 00:00 10/27/18 00:00 Intake and Output: 10/27/18 10/27/18 06:59 18:59 Intake Total 1250 Output Total 5 Balance 1245 - Medications Medications: Current Medications Alprazolam (Xanax) 0.25 mg PO BID PRN PRN Reason: Anxiety Stop: 11/02/18 10:29 Last Admin: 10/26/18 22:19 Dose: 0.25 mg Cilostazol (Pletal) 50 mg PO BID [facility] Last Admin: 10/26/18 17:57 Dose: 50 mg Furosemide (Lasix) 20 mg PO DAILY [facility] Last Admin: 10/26/18 10:59 Dose: 20 mg Heparin Sodium (Porcine) (Heparin) 5,000 units SC Q12 [facility] Last Admin: 10/24/18 09:28 Dose: 5,000 units Ciprofloxacin (Cipro 400mg/200ml Dsw) 400 mg in 200 mls @ 133 mls/hr IVPB Q12H [facility]; Protocol Last Admin: 10/26/18 21:27 Dose: 133 mls/hr Metronidazole (Flagyl) 500 mg in 100 mls @ 100 mls/hr IVPB Q8H [facility]; Protocol Last Admin: 10/27/18 00:24 Dose: 100 mls/hr Insulin Human Regular (Novolin R) 0 unit SC ACHS [facility]; Protocol Last Admin: 10/26/18 21:27 Dose: Not Given Metoprolol Tartrate (Lopressor) 12.5 mg PO BID [facility] Last Admin: 10/26/18 17:54 Dose: 12.5 mg Morphine Sulfate (Morphine) 2 mg IVP Q4 PRN PRN Reason: Pain, Mild (1-3) Last Admin: 10/27/18 06:42 Dose: 2 mg Multivitamins/Minerals (Therapeutic-M Tab) 1 tab PO DAILY [facility] Last Admin: 10/26/18 10:59 Dose: 1 tab Pantoprazole Sodium (Protonix Ec Tab) 40 mg PO DAILY [facility] Last Admin: 10/26/18 10:59 Dose: 40 mg Senna/Docusate Sodium (Senokot S 50 Mg-8.6 Mg) 1 tab PO HS [facility] Last Admin: 10/26/18 21:29 Dose: 1 tab Sitagliptin Phosphate (Januvia) 50 mg PO DAILY [facility] Last Admin: 10/26/18 10:59 Dose: 50 mg - Labs Labs: 10/27/18 07:19 10/25/18 08:58 PT 12.8 SECONDS (9.7-12.2) H 10/23/18 13:59 INR 1.2 10/23/18 13:59 APTT 27 SECONDS (21-34) 10/23/18 13:59 - Constitutional Appears: No Acute Distress - Head Exam Head Exam: ATRAUMATIC, NORMAL INSPECTION, NORMOCEPHALIC - Eye Exam Eye Exam: Normal appearance - Respiratory Exam Respiratory Exam: Clear to Ausculation Bilateral, NORMAL BREATHING PATTERN - Cardiovascular Exam Cardiovascular Exam: REGULAR RHYTHM - GI/Abdominal Exam GI & Abdominal Exam: Soft. absent: Distended, Guarding, Rigid, Tenderness, R ebound - Neurological Exam Neurological Exam: Alert, Oriented x3 - Psychiatric Exam Psychiatric exam: Normal Affect, Normal Mood - Skin Skin Exam: Dry, Intact Assessment and Plan - Assessment and Plan (Free Text) Assessment: 73F with infected hematoma Continue Abx Pain control prn Regular diet Monitor IR drain, record outputs Dw Dr Chucho Caal PGY4
[2018-10-27] MEDS: (Novolin R) Insulin Human Regular 100 units/ml vial SC SCH ×4 (08:02→21:22)
--- NOTE | 2018-10-27 08:15 | PN ---
DATE: 10/26/2018 SUBJECTIVE: The patient is seen today, 10/26/2018. She is having less abdominal pain. The patient had an anxiety episode that was relieved with alprazolam. Hemoglobin also dropped to 7.8. OBJECTIVE: VITAL SIGNS: Blood pressure 104/60, temperature 98, respiratory rate 18, and pulse 90. HEENT: Pale mucosa of the conjunctivae. NECK: Supple. No JVD. No carotid bruit. No lymph node. No thyromegaly. CHEST AND LUNGS: Bilateral symmetrical expansion. Good air exchange. No rales, no rhonchi. CARDIOVASCULAR SYSTEM: PMI not localized. S1, S2. No additional sounds. ABDOMEN: Normoactive bowel sounds. No tenderness. No organomegaly. No masses. EXTREMITIES: No cyanosis, no clubbing, no edema. CENTRAL NERVOUS SYSTEM: Alert, awake, and oriented x2. No neurological deficits could be appreciated. ASSESSMENT: Anemia of acute blood loss; pelvic abscess, status post incision and drainage by interventional radiology; type 2 diabetes mellitus; hypertension; status post laparotomy for appendectomy and lysis of adhesions. PLAN: Continue current antibiotics and follow surgical recommendations, packed RBCs transfusion. Kd Ledesma MD
[2018-10-27] MEDS: Multivitamin With Minerals Tab PO SCH (09:44)
[2018-10-27] MEDS: Pantoprazole 40 mg EC Tab PO SCH (09:44)
[2018-10-27] MEDS: Cilostazol 50 mg Tab UD PO SCH ×2 (09:44→17:40)
[2018-10-27] MEDS: Ciprofloxacin 400mg/200ml D5W 400 MG/200 ML BAG IVPB SCH (09:46)
[2018-10-27] MEDS: Albuterol-Ipratrop 3 mg / 0.5 (3 ml) UD INH PRN ×2 (11:36→20:40)
[2018-10-27] MEDS: Docusate-Senna 50 mg-8.6 mg Tab PO SCH (21:18)
--- NOTE | 2018-10-28 03:44 | PN ---
DATE: 10/27/2018 SUBJECTIVE: The patient is seen today, 10/27/2018. She still has the post-IR drainage. PHYSICAL EXAMINATION: VITAL SIGNS: Blood pressure is 119/63, temperature 98.2, respiratory rate 20, and pulse 100. HEENT: Pupils equal, reactive to light. Normal-appearing mucosa of the conjunctivae, oropharynx and nasal membrane mucosa. NECK: Supple. No JVD. No carotid bruit. No lymph node. No thyromegaly. CHEST AND LUNGS: Bilateral symmetrical expansion. Good air exchange. No rales, no rhonchi. CARDIOVASCULAR SYSTEM: PMI not localized. S1, S2. No additional sounds. ABDOMEN: Normoactive bowel sounds. No tenderness. No organomegaly. No masses. EXTREMITIES: No cyanosis, no clubbing, no edema. CENTRAL NERVOUS SYSTEM: Alert, awake, oriented x2. No neurological deficit could be appreciated. ASSESSMENT: 1. Postsurgical pelvic abscess, status post interventional radiology drainage. 2. Type 2 diabetes mellitus. 3. Hypertension. 4. Anemia of acute blood loss. PLAN: Continue current antibiotics and continue insulin coverage with a sliding scale, physical therapy. Kd Ledesma MD
[2018-10-28 07:43] LABS: BASO # 0.1 K/uL (0.0-0.2); BASO % 0.7 % (0.0-2.0); EOS # 0.2 K/uL (0.0-0.7); EOS % 2.6 % (0.0-4.0); HEMOGLOBIN 9.8 g/dL (11.0-16.0); LYMPH # 0.9 K/uL (1.0-4.3); LYMPH % 9.6 % (20.0-40.0); MEAN CELL VOLUME 93.1 fL (81.0-99.0); MEAN CORPUSCULAR HEMOGLOBIN 31.2 pg (27.0-31.0); MEAN CORPUSCULAR HGB CONC 33.6 g/dL (33.0-37.0); MEAN PLATELET VOLUME 8.3 fL (7.2-11.7); MONO # 1.3 K/uL (0.0-0.8); MONO % 13.3 % (0.0-10.0); NEUT % 73.8 % (50.0-75.0); NRBC % 0.1 % (0.0-2.0); PLATELET COUNT 315 K/uL (130-400); RBC 3.14 Mil/uL (3.80-5.20); RED CELL DISTRIBUTION WIDTH 16.9 % (11.5-14.5); WHITE BLOOD COUNT 9.4 K/uL (4.8-10.8)
[2018-10-28 07:51] LABS: ALB/GLOB RATIO 1.2 (1.0-2.1); ALBUMIN 3.4 g/dL (3.5-5.0); ALT/SGPT 14 U/L (9-52); AST/SGOT 27 U/L (14-36); BLOOD UREA NITROGEN 10 mg/dL (7-17); CALCIUM 8.9 mg/dl (8.6-10.4); GFR NON-AFRICAN AMERICAN > 60
[2018-10-28] MEDS: (Novolin R) Insulin Human Regular 100 units/ml vial SC SCH ×4 (08:18→22:15)
[2018-10-28 08:47] LABS: ANISOCYTOSIS SLIGHT; EOSINOPHIL 2 % (0-4); HYPOCHROMIC SLIGHT; LYMPHOCYTE 9 % (20-40); MONOCYTE 13 % (0-10); NEUTROPHIL 76 % (50-75); PLATELET ESTIMATE NORMAL (NORMAL); POIKILOCYTOSIS SLIGHT; TOTAL CELLS COUNTED 100
[2018-10-28] MEDS: Multivitamin With Minerals Tab PO SCH (09:08)
[2018-10-28] MEDS: Pantoprazole 40 mg EC Tab PO SCH (09:08)
[2018-10-28] MEDS: Cilostazol 50 mg Tab UD PO SCH ×2 (09:08→17:10)
--- NOTE | 2018-10-28 12:00 | CP.PCM.PN ---
Subjective - Date & Time of Evaluation Date of Evaluation: 10/28/18 Time of Evaluation: 11:55 - Subjective Subjective: General Surgery Progress Note for Dr. Rankin This 73F was seen and examined this AM at bedside. No acute evenst overnight. She reports that he abdominal pain is improving however she is experiencing pain in her bottock. She denies chest pain or SOB she denies fevers or chills. She is tolerating diet. Approximately half of the dejan were removed. Drainage noted an midline incision. Objective - Vital Signs/Intake and Output Vital Signs (last 24 hours): Temp Pulse Resp BP Pulse Ox 97.8 F 110 H 20 128/62 100 10/28/18 08:46 10/28/18 08:46 10/28/18 08:46 10/28/18 09:08 10/28/18 08:46 Intake and Output: 10/28/18 10/28/18 06:59 18:59 Intake Total 450 Output Total 505 Balance -55 - Medications Medications: Current Medications Albuterol/Ipratropium (Duoneb 3 Mg/0.5 Mg (3 Ml) Ud) 3 ml INH RQ6 PRN PRN Reason: Shortness of Breath Last Admin: 10/27/18 20:40 Dose: 3 ml Alprazolam (Xanax) 0.25 mg PO BID PRN PRN Reason: Anxiety Stop: 11/02/18 10:29 Last Admin: 10/27/18 20:42 Dose: 0.25 mg Cilostazol (Pletal) 50 mg PO BID [facility] Last Admin: 10/28/18 09:08 Dose: 50 mg Furosemide (Lasix) 20 mg PO DAILY [facility] Last Admin: 10/28/18 09:08 Dose: 20 mg Heparin Sodium (Porcine) (Heparin) 5,000 units SC Q12 [facility] Last Admin: 10/24/18 09:28 Dose: 5,000 units Ciprofloxacin (Cipro 400mg/200ml Dsw) 400 mg in 200 mls @ 133 mls/hr IVPB Q12H [facility]; Protocol Metronidazole (Flagyl) 500 mg in 100 mls @ 100 mls/hr IVPB Q8H [facility]; Protocol Insulin Human Regular (Novolin R) 0 unit SC ACHS [facility]; Protocol Last Admin: 10/28/18 11:48 Dose: 8 units Metoprolol Tartrate (Lopressor) 12.5 mg PO BID [facility] Last Admin: 10/28/18 09:08 Dose: 12.5 mg Morphine Sulfate (Morphine) 2 mg IVP Q4 PRN PRN Reason: Pain, Mild (1-3) Last Admin: 10/28/18 06:30 Dose: 2 mg Multivitamins/Minerals (Therapeutic-M Tab) 1 tab PO DAILY [facility] Last Admin: 10/28/18 09:08 Dose: 1 tab Pantoprazole Sodium (Protonix Ec Tab) 40 mg PO DAILY [facility] Last Admin: 10/28/18 09:08 Dose: 40 mg Senna/Docusate Sodium (Senokot S 50 Mg-8.6 Mg) 1 tab PO HS [facility] Last Admin: 10/27/18 21:18 Dose: 1 tab Sitagliptin Phosphate (Januvia) 50 mg PO DAILY [facility] Last Admin: 10/28/18 09:08 Dose: 50 mg - Labs Labs: 10/28/18 07:25 10/28/18 07:25 PT 12.8 SECONDS (9.7-12.2) H 10/23/18 13:59 INR 1.2 10/23/18 13:59 APTT 27 SECONDS (21-34) 10/23/18 13:59 - Constitutional Appears: Non-toxic - Head Exam Head Exam: ATRAUMATIC, NORMOCEPHALIC - Eye Exam Eye Exam: EOMI - ENT Exam ENT Exam: Mucous Membranes Moist - Respiratory Exam Respiratory Exam: NORMAL BREATHING PATTERN - Cardiovascular Exam Cardiovascular Exam: +S1, +S2 - GI/Abdominal Exam GI & Abdominal Exam: Soft, Tenderness. absent: Firm, Guarding, Rigid Additional comments: Wound well approximated draining, no crepitous or erythema - Neurological Exam Neurological Exam: Alert, Awake - Psychiatric Exam Psychiatric exam: Normal Affect, Normal Mood - Skin Skin Exam: Dry, Intact Assessment and Plan - Assessment and Plan (Free Text) Assessment: 73F with infected hematoma Continue Abx Pain control prn Regular diet Monitor IR drain likely removal after final culture report Further recs per Dr. Chucho Ayers PGY3
[2018-10-28] MEDS: Ciprofloxacin 400mg/200ml D5W 400 MG/200 ML BAG IVPB SCH ×2 (12:23→23:33)
[2018-10-28] MEDS: metroNIDAZOLE IV 500 mg/100 ml 500 MG/100 ML BAG IVPB SCH ×2 (13:17→21:23)
[2018-10-28] MEDS: Albuterol-Ipratrop 3 mg / 0.5 (3 ml) UD INH PRN (15:49)
[2018-10-28] MEDS: Docusate-Senna 50 mg-8.6 mg Tab PO SCH (21:23)
[2018-10-29] MEDS: Albuterol-Ipratrop 3 mg / 0.5 (3 ml) UD INH PRN ×3 (00:49→19:39)
[2018-10-29] MEDS: metroNIDAZOLE IV 500 mg/100 ml 500 MG/100 ML BAG IVPB SCH ×3 (05:16→21:19)
[2018-10-29] MEDS: (Novolin R) Insulin Human Regular 100 units/ml vial SC SCH ×4 (08:15→21:29)
--- NOTE | 2018-10-29 08:38 | PN ---
DATE: 10/28/2018 SUBJECTIVE: She is still having the IR drainage with decrease of the amount of the fluid. PHYSICAL EXAMINATION: VITAL SIGNS: Blood pressure 133/67, temperature 98.1, respiratory rate 20 and pulse 100. HEENT: Pupils equal, reactive to light. NECK: Supple. No JVD. No carotid bruit. No lymph nodes. No thyromegaly. CHEST: Lungs, bilateral symmetrical expansion. Good air exchange. No rales. No rhonchi. CARDIOVASCULAR SYSTEM: PMI not localized. S1, S2. No additional sounds. ABDOMEN: Normoactive bowel sounds. There is some drainage at the site of the dejan at the surgical site. EXTREMITIES: No cyanosis. No clubbing. No edema. ELECTRONIC ORGAN TECHNICIAN: Alert, awake, oriented x2. No neurological deficit could be appreciated. ASSESSMENT: 1. Infected postsurgical pelvic abscess, status post Interventional Radiology drainage. 2. Status post appendectomy and lysis of intra-abdominal adhesions. 3. Type 2 diabetes mellitus. 4. Hypertension. 5. Peripheral vascular disease. PLAN Continue current medications and antibiotics. Follow surgical recommendations. Physical therapy. Cortney MD Baltazar
[2018-10-29] MEDS: Pantoprazole 40 mg EC Tab PO SCH (09:23)
[2018-10-29] MEDS: Cilostazol 50 mg Tab UD PO SCH ×2 (09:23→17:17)
[2018-10-29] MEDS: Multivitamin With Minerals Tab PO SCH (09:24)
[2018-10-29] MEDS: Ciprofloxacin 400mg/200ml D5W 400 MG/200 ML BAG IVPB SCH (12:54)
--- NOTE | 2018-10-29 13:32 | CP.PCM.PN ---
Subjective - Date & Time of Evaluation Date of Evaluation: 10/29/18 Time of Evaluation: 13:22 - Subjective Subjective: General Surgery Progress Note for Dr. Rankin This 73F was seen and examined this AM at bedside. IR drain was removed at bedside. Patient denies chest pain or SOB. No new complaints at this time. Objective - Vital Signs/Intake and Output Vital Signs (last 24 hours): Temp Pulse Resp BP Pulse Ox 97.8 F 101 H 20 147/76 97 10/29/18 07:52 10/29/18 07:52 10/29/18 07:52 10/29/18 09:23 10/29/18 07:52 Intake and Output: 10/29/18 10/29/18 06:59 18:59 Intake Total 940 Output Total 1305 Balance -365 - Medications Medications: Current Medications Albuterol/Ipratropium (Duoneb 3 Mg/0.5 Mg (3 Ml) Ud) 3 ml INH RQ6 PRN PRN Reason: Shortness of Breath Last Admin: 10/29/18 07:35 Dose: 3 ml Alprazolam (Xanax) 0.25 mg PO BID PRN PRN Reason: Anxiety Stop: 11/02/18 10:29 Last Admin: 10/29/18 07:36 Dose: 0.25 mg Cilostazol (Pletal) 50 mg PO BID [facility] Last Admin: 10/29/18 09:23 Dose: 50 mg Furosemide (Lasix) 20 mg PO DAILY [facility] Last Admin: 10/29/18 09:23 Dose: 20 mg Heparin Sodium (Porcine) (Heparin) 5,000 units SC Q12 [facility] Last Admin: 10/24/18 09:28 Dose: 5,000 units Ciprofloxacin (Cipro 400mg/200ml Dsw) 400 mg in 200 mls @ 133 mls/hr IVPB Q12H [facility]; Protocol Last Admin: 10/29/18 12:54 Dose: 133 mls/hr Metronidazole (Flagyl) 500 mg in 100 mls @ 100 mls/hr IVPB Q8H [facility]; Protocol Last Admin: 10/29/18 05:16 Dose: 100 mls/hr Insulin Human Regular (Novolin R) 0 unit SC ACHS [facility]; Protocol Last Admin: 10/29/18 12:55 Dose: 6 units Metoprolol Tartrate (Lopressor) 12.5 mg PO BID [facility] Last Admin: 10/29/18 09:24 Dose: 12.5 mg Morphine Sulfate (Morphine) 2 mg IVP Q4 PRN PRN Reason: Pain, Mild (1-3) Last Admin: 10/29/18 06:01 Dose: 2 mg Multivitamins/Minerals (Therapeutic-M Tab) 1 tab PO DAILY [facility] Last Admin: 10/29/18 09:24 Dose: 1 tab Pantoprazole Sodium (Protonix Ec Tab) 40 mg PO DAILY [facility] Last Admin: 10/29/18 09:23 Dose: 40 mg Senna/Docusate Sodium (Senokot S 50 Mg-8.6 Mg) 1 tab PO HS [facility] Last Admin: 10/28/18 21:23 Dose: 1 tab Sitagliptin Phosphate (Januvia) 50 mg PO DAILY [facility] Last Admin: 10/29/18 09:23 Dose: 50 mg - Labs Labs: 10/28/18 07:25 10/28/18 07:25 PT 12.8 SECONDS (9.7-12.2) H 10/23/18 13:59 INR 1.2 10/23/18 13:59 APTT 27 SECONDS (21-34) 10/23/18 13:59 - Constitutional Appears: Non-toxic, No Acute Distress - Head Exam Head Exam: ATRAUMATIC, NORMOCEPHALIC - Eye Exam Eye Exam: EOMI - ENT Exam ENT Exam: Mucous Membranes Moist - Respiratory Exam Respiratory Exam: NORMAL BREATHING PATTERN - Cardiovascular Exam Cardiovascular Exam: +S1, +S2 - GI/Abdominal Exam GI & Abdominal Exam: Soft. absent: Distended, Firm, Guarding, Rigid, Tenderness - Neurological Exam Neurological Exam: Alert, Awake - Psychiatric Exam Psychiatric exam: Normal Affect, Normal Mood - Skin Skin Exam: Dry, Intact Assessment and Plan - Assessment and Plan (Free Text) Assessment: 73F with resolved hematoma s/p IR drainage and doing well Clear for discharge at the discretion of primary Followup in office in one week D/W Dr. Chucho Ayers PGY3
[2018-10-29] MEDS: Docusate-Senna 50 mg-8.6 mg Tab PO SCH (21:52)
[2018-10-30] MEDS: Ciprofloxacin 400mg/200ml D5W 400 MG/200 ML BAG IVPB SCH (00:36)
[2018-10-30] MEDS: metroNIDAZOLE IV 500 mg/100 ml 500 MG/100 ML BAG IVPB SCH (06:07)
[2018-10-30] MEDS: (Novolin R) Insulin Human Regular 100 units/ml vial SC SCH ×4 (08:22→21:19)
[2018-10-30] MEDS: Cilostazol 50 mg Tab UD PO SCH ×2 (10:01→18:00)
[2018-10-30] MEDS: Multivitamin With Minerals Tab PO SCH (10:01)
[2018-10-30] MEDS: Pantoprazole 40 mg EC Tab PO SCH (10:02)
[2018-10-30] MEDS: Oxycodone/Acetaminophen 5/325 mg Tab PO PRN ×2 (10:09→20:28)
--- NOTE | 2018-10-30 11:40 | PN ---
DATE: 10/29/2018 SUBJECTIVE: The patient was not in any cardiopulmonary distress. The IR drain was out. PHYSICAL EXAMINATION: VITAL SIGNS: Blood pressure 131/54, temperature 98.2, respiratory rate 20 and pulse 100. HEENT: Pupils equal, reactive to light. Normal-appearing mucosa of the conjunctivae, oropharynx and nasal membrane mucosa. NECK: Supple. No JVD. No carotid bruit. No lymph node. No thyromegaly. CHEST AND LUNGS: Bilateral symmetrical expansion. Good air exchange. No rales. No rhonchi. CARDIOVASCULAR SYSTEM: PMI not localized. S1, S2. No additional sounds. ABDOMEN: There is still some drainage at the site of the surgical wound. EXTREMITIES: No cyanosis, no clubbing, no edema. FLIGHT SURGEON: Alert, awake, oriented x2. No neurological deficit could be appreciated. ASSESSMENT: 1. Postoperative pelvic abscess, status post Interventional Radiology drainage. 2. Type 2 diabetes mellitus with hyperglycemia. 3. Hypertension, mixed peripheral vascular disease. PLAN: We will resume the patient's diabetes medications as well as continue the antibiotics with physical therapy and occupational therapy and plan to discharge the patient back to transitional care unit for deconditioning. Kd Ledesma MD
[2018-10-30] MEDS ORDERED: Bacitracin 500 Units/gm Oint Foilpak UD TOP ONE (13:00)
--- NOTE | 2018-10-30 19:36 | CP.PCM.PN ---
Subjective - Date & Time of Evaluation Date of Evaluation: 10/30/18 Time of Evaluation: 12:00 - Subjective Subjective: Hospitalist Covering Dr. Ledesma Progress Note Patient was seen and examined at 12:00 PM 10/30/18 Very pleasant 73 year old Female who is s/p open appendectomy/lysis of adhesions 10/08/18. Subsequently sent to [facility] where she complained of increased pain at the surgical site with nonbloody/nonbilious vomiting. She underwent CT guided drainage of a complex pelvic fluid collection by IR on 10/25/18. Culture of the drained fluid showed NO growth. Blood culture 10/22/18 is negative at 5 days. Urine culture 10/22/18 showed NO growth. She was treated with IV Ciprofloxicin 400 mg IV Q12H and Flagyl 500 mg IV Q8H and both of these have been converted to PO to be completed on 11/02/18. She is stable for transfer back to [facility] and we are awaiting insurance authorization and U acceptance. Currently upon FULL ROS: Soreness at the abdominal incision site Moving her bowels NO n/v Tolerating her diet Episode of anxiety this morning which she states happens to her often NO other complaints upon FULL ROS Exam: General: AAOx3, NAD HEENT: NCA, EOMI, PERRLA, NO pharyngeal erythema/exudate, NO cervical/supraclavicular/submandibular lymphadenopathy, NO thyromegaly Cardio: Holosystolic Murmur in all de la fuente Resp: CTA B/L, NO R/R/W GI: BSx4, NT, ND, Soft, NO guarding/rebound tenderness, Ventral Surgical site with intact dejan with no wound dehiscense and no surrounding signs of cellulitis Ext: Pulses are strong and equal, Capillary Refill is 2 seconds, NONpitting edema of the bilateral feet which she states happens at times Neuro: CN II through XII are grossly intact Assessments: 1). Complex Pelvid Fluid Collection S/P Drainage 10/25/18 2). Hx COPD/Bronchitis 3). Hx DM 2 4). Hx HTN 5). Hx HLD 6). Hx PVD Ciprofloxacin 500 mg PO 2x/day and Flagyl 500 mg PO 3x/day Patient will need to follow up with Surgeon Dr. Rankin in 7 days for removal of ventral abdominal dejan Bacitracin Topical to the ventral surgical incision site and cover with n onadhesive dressing 2x/day Continue medications for chronic medical problems Spoke with Final Tester Meir: awaiting insurance authorization and acceptance to [facility] and this will likely not happen till Thursday11/01/18. Tuan Burger D.O. Objective - Vital Signs/Intake and Output Vital Signs (last 24 hours): Temp Pulse Resp BP Pulse Ox 98.1 F 92 H 20 106/56 L 97 10/30/18 15:46 10/30/18 15:46 10/30/18 15:46 10/30/18 15:46 10/30/18 15:46 Intake and Output: 10/30/18 10/31/18 18:59 06:59 Intake Total 300 Output Total 400 Balance -100 - Medications Medications: Current Medications Albuterol/Ipratropium (Duoneb 3 Mg/0.5 Mg (3 Ml) Ud) 3 ml INH RQ6 PRN PRN Reason: Shortness of Breath Last Admin: 10/29/18 19:39 Dose: 3 ml Alprazolam (Xanax) 0.25 mg PO BID PRN PRN Reason: Anxiety Stop: 11/02/18 10:29 Last Admin: 10/30/18 08:22 Dose: 0.25 mg Cilostazol (Pletal) 50 mg PO BID [facility] Last Admin: 10/30/18 10:01 Dose: 50 mg Ciprofloxacin (Cipro) 500 mg PO BID [facility]; Protocol Stop: 11/02/18 10:01 Last Admin: 10/30/18 17:38 Dose: 500 mg Furosemide (Lasix) 20 mg PO DAILY [facility] Last Admin: 10/30/18 10:02 Dose: 20 mg Glipizide (Glucotrol) 5 mg PO BID [facility] Last Admin: 10/30/18 17:39 Dose: 5 mg Heparin Sodium (Porcine) (Heparin) 5,000 units SC Q12 [facility] Last Admin: 10/24/18 09:28 Dose: 5,000 units Insulin Human Regular (Novolin R) 0 unit SC ACHS [facility]; Protocol Last Admin: 10/30/18 11:59 Dose: 3 units [facility] Last Admin: 10/30/18 17:39 Dose: 500 mg Metoprolol Tartrate (Lopressor) 12.5 mg PO BID [facility] Last Admin: 10/30/18 17:38 Dose: 12.5 mg Metronidazole (Flagyl) 500 mg PO BID [facility]; Protocol Stop: 11/02/18 10:01 Last Admin: 10/30/18 17:38 Dose: 500 mg Multivitamins/Minerals (Therapeutic-M Tab) 1 tab PO DAILY [facility] Last Admin: 10/30/18 10:01 Dose: 1 tab Oxycodone/Acetaminophen (Percocet 5/325 Mg Tab) 1 tab PO Q6H PRN PRN Reason: Pain, moderate (4-7) Stop: 11/02/18 08:31 Last Admin: 10/30/18 10:09 Dose: 1 tab Pantoprazole Sodium (Protonix Ec Tab) 40 mg PO DAILY [facility] Last Admin: 10/30/18 10:02 Dose: 40 mg Senna/Docusate Sodium (Senokot S 50 Mg-8.6 Mg) 1 tab PO HS [facility] Last Admin: 10/29/18 21:52 Dose: 1 tab Sitagliptin Phosphate (Januvia) 50 mg PO DAILY [facility] Last Admin: 10/30/18 10:01 Dose: 50 mg - Labs Labs: 10/28/18 07:25 10/28/18 07:25 PT 12.8 SECONDS (9.7-12.2) H 10/23/18 13:59 INR 1.2 10/23/18 13:59 APTT 27 SECONDS (21-34) 10/23/18 13:59
[2018-10-30] MEDS: Docusate-Senna 50 mg-8.6 mg Tab PO SCH (21:18)
[2018-10-31] MEDS: Oxycodone/Acetaminophen 5/325 mg Tab PO PRN ×3 (03:26→20:19)
[2018-10-31] MEDS: (Novolin R) Insulin Human Regular 100 units/ml vial SC SCH ×4 (08:01→22:34)
[2018-10-31] MEDS: Multivitamin With Minerals Tab PO SCH (09:54)
[2018-10-31] MEDS: Pantoprazole 40 mg EC Tab PO SCH (09:54)
[2018-10-31] MEDS: Cilostazol 50 mg Tab UD PO SCH ×2 (09:54→17:38)
[2018-10-31 10:31] VITALS: RESP 20
--- NOTE | 2018-10-31 19:38 | CP.PCM.PN ---
Subjective - Date & Time of Evaluation Date of Evaluation: 10/31/18 Time of Evaluation: 11:45 - Subjective Subjective: Hospitalist Covering Dr. Ledesma Progress Note Patient was seen and examined at 11:45 AM 10/31/18 Very pleasant 73 year old Female who is s/p open appendectomy/lysis of adhesions 10/08/18. Subsequently sent to [facility] where she complained of increased pain at the surgical site with nonbloody/nonbilious vomiting. She underwent CT guided drainage of a complex pelvic fluid collection by IR on 10/25/18. Culture of the drained fluid showed NO growth. Blood culture 10/22/18 is negative at 5 days. Urine culture 10/22/18 showed NO growth. She was treated with IV Ciprofloxicin 400 mg IV Q12H and Flagyl 500 mg IV Q8H and both of these have been converted to PO to be completed on 11/02/18. She is stable for transfer back to [facility] and we are awaiting insurance authorization and U acceptance. Currently upon FULL ROS: Soreness at the abdominal incision site Moving her bowels NO n/v Tolerating her diet Episode of anxiety this morning which she states happens to her often NO other complaints upon FULL ROS Exam: General: AAOx3, NAD HEENT: NCA, EOMI, PERRLA, NO pharyngeal erythema/exudate, NO cervical/supraclavicular/submandibular lymphadenopathy, NO thyromegaly Cardio: Holosystolic Murmur in all [place] Resp: CTA B/L, NO R/R/W GI: BSx4, NT, ND, Soft, NO guarding/rebound tenderness, Ventral Surgical site with intact dejan with no wound dehiscense and no surrounding signs of cellulitis Ext: Pulses are strong and equal, Capillary Refill is 2 seconds, NONpitting edema of the bilateral feet which she states happens at times was not present at time of exam today Neuro: CN II through XII are grossly intact Assessments: 1). Complex Pelvid Fluid Collection S/P Drainage 10/25/18 2). Hx COPD/Bronchitis 3). Hx DM 2 4). Hx HTN 5). Hx HLD 6). Hx PVD Ciprofloxacin 500 mg PO 2x/day and Flagyl 500 mg PO 3x/day Patient will need to follow up with Surgeon Dr. Rankin in 7 days for removal of ventral abdominal dejan Bacitracin Topical to the ventral surgical incision site and cover with nonadhesive dressing 2x/day Continue medications for chronic medical problems Spoke with Supervisor Telephone Information Meir 10/30/18: awaiting insurance authorization and acceptance to [facility] and this will likely not happen till Thursday11/01/18. Tuan Burger D.O. Objective - Vital Signs/Intake and Output Vital Signs (last 24 hours): Temp Pulse Resp BP Pulse Ox 98.2 F 87 20 118/59 L 96 10/31/18 16:00 10/31/18 16:00 10/31/18 16:00 10/31/18 16:00 10/31/18 16:00 Intake and Output: 10/31/18 11/01/18 18:59 06:59 Intake Total 360 Balance 360 - Medications Medications: Current Medications Albuterol/Ipratropium (Duoneb 3 Mg/0.5 Mg (3 Ml) Ud) 3 ml INH RQ6 PRN PRN Reason: Shortness of Breath Last Admin: 10/29/18 19:39 Dose: 3 ml Alprazolam (Xanax) 0.25 mg PO BID PRN PRN Reason: Anxiety Stop: 11/02/18 10:29 Last Admin: 10/31/18 08:00 Dose: 0.25 mg Cilostazol (Pletal) 50 mg PO BID [facility] Last Admin: 10/31/18 17:38 Dose: 50 mg Ciprofloxacin (Cipro) 500 mg PO BID [facility]; Protocol Stop: 11/02/18 10:01 Last Admin: 10/31/18 17:39 Dose: 500 mg Furosemide (Lasix) 20 mg PO DAILY [facility] Last Admin: 10/31/18 09:54 Dose: 20 mg Glipizide (Glucotrol) 5 mg PO BID [facility] Last Admin: 10/31/18 17:38 Dose: 5 mg Heparin Sodium (Porcine) (Heparin) 5,000 units SC Q12 [facility] Last Admin: 10/24/18 09:28 Dose: 5,000 units Insulin Human Regular (Novolin R) 0 unit SC ACHS [facility]; Protocol Last Admin: 10/31/18 17:38 Dose: 3 units Metformin HCl (Glucophage) 500 mg PO BIDCC [facility] Last Admin: 10/31/18 17:38 Dose: 500 mg Metoprolol Tartrate (Lopressor) 12.5 mg PO BID [facility] Last Admin: 10/31/18 17:38 Dose: 12.5 mg Metronidazole (Flagyl) 500 mg PO BID [facility]; Protocol Stop: 11/02/18 10:01 Last Admin: 10/31/18 17:39 Dose: 500 mg Multivitamins/Minerals (Therapeutic-M Tab) 1 tab PO DAILY [facility] Last Admin: 10/31/18 09:54 Dose: 1 tab Ondansetron HCl (Zofran Tab) 4 mg PO Q6H PRN PRN Reason: Nausea/Vomiting Last Admin: 10/31/18 13:48 Dose: 4 mg Oxycodone/Acetaminophen (Percocet 5/325 Mg Tab) 1 tab PO Q6H PRN PRN Reason: Pain, moderate (4-7) Stop: 11/02/18 08:31 Last Admin: 10/31/18 12:30 Dose: 1 tab Pantoprazole Sodium (Protonix Ec Tab) 40 mg PO DAILY [facility] Last Admin: 10/31/18 09:54 Dose: 40 mg Senna/Docusate Sodium (Senokot S 50 Mg-8.6 Mg) 1 tab PO HS [facility] Last Admin: 10/30/18 21:18 Dose: 1 tab Sitagliptin Phosphate (Januvia) 50 mg PO DAILY [facility] Last Admin: 10/31/18 09:54 Dose: 50 mg - Labs Labs: 10/28/18 07:25 10/28/18 07:25 PT 12.8 SECONDS (9.7-12.2) H 10/23/18 13:59 INR 1.2 10/23/18 13:59 APTT 27 SECONDS (21-34) 10/23/18 13:59
[2018-10-31] MEDS: Docusate-Senna 50 mg-8.6 mg Tab PO SCH (21:16)
[2018-11-01] MEDS: Oxycodone/Acetaminophen 5/325 mg Tab PO PRN ×2 (04:50→14:00)
[2018-11-01 07:25] LABS: BASO # 0.1 K/uL (0.0-0.2); BASO % 0.9 % (0.0-2.0); EOS # 0.2 K/uL (0.0-0.7); EOS % 2.8 % (0.0-4.0); HEMOGLOBIN 10.8 g/dL (11.0-16.0); LYMPH # 1.1 K/uL (1.0-4.3); LYMPH % 14.2 % (20.0-40.0); MEAN CORPUSCULAR HEMOGLOBIN 30.4 pg (27.0-31.0); MEAN CORPUSCULAR HGB CONC 33.4 g/dL (33.0-37.0); MEAN PLATELET VOLUME 8.1 fL (7.2-11.7); MONO # 0.9 K/uL (0.0-0.8); MONO % 12.2 % (0.0-10.0); NEUT # 5.2 K/uL (1.8-7.0); NEUT % 69.9 % (50.0-75.0); RBC 3.55 Mil/uL (3.80-5.20); RED CELL DISTRIBUTION WIDTH 16.2 % (11.5-14.5); WHITE BLOOD COUNT 7.4 K/uL (4.8-10.8)
[2018-11-01 07:29] LABS: MEAN CELL VOLUME 90.8 fL (81.0-99.0)
[2018-11-01 07:57] LABS: ALB/GLOB RATIO 1.2 (1.0-2.1); ALBUMIN 3.4 g/dL (3.5-5.0); ALT/SGPT 15 U/L (9-52); AST/SGOT 38 U/L (14-36); BLOOD UREA NITROGEN 9 mg/dL (7-17); CALCIUM 9.3 mg/dl (8.6-10.4); GFR NON-AFRICAN AMERICAN > 60
--- NOTE | 2018-11-01 07:57 | CP.PCM.DIS ---
Provider - Provider Date of Admission: 10/23/18 04:11 Attending physician: Kd Ledesma MD Consults: 10/23/18 04:11 General Surgery Consult Routine Comment: Consulting Provider: Terrell Rankin Jr. Consulting Physician: Terrell Rankin Jr. Reason for Consult: abdominal abscess 10/23/18 09:00 Core Measures [Inpatient CORPORATE CONTROLLER Core Measures Referral] Routine Comment: Physician Instructions: Reason For Exam: COPD 10/24/18 08:00 Radiology Consult Routine Comment: pelvic abcess Consulting Provider: Singh Gonzalez Consulting Physician: Singh Gonzalez Reason for Consult: pelvic abscess 10/24/18 09:28 Radiology Consult Routine Comment: Consulting Provider: Mars Knutson Consulting Physician: Mars Knutson Reason for Consult: Pelvic abscess Time Spent in preparation of Discharge (in minutes): 40 Hospital Course - Lab Results Lab Results: Micro Results 10/25/18 16:09 Body Fluid - Abscess Gram Stain - Final 10/25/18 16:09 Body Fluid - Abscess Body Fluid Culture - Final No growth. Most Recent Lab Values WBC 7.4 K/uL (4.8-10.8) 11/01/18 07:14 RBC 3.55 Mil/uL (3.80-5.20) L 11/01/18 07:14 Hgb 10.8 g/dL (11.0-16.0) L 11/01/18 07:14 Hct 32.3 % (34.0-47.0) L 11/01/18 07:14 MCV 90.8 fL (81.0-99.0) D 11/01/18 07:14 MCH 30.4 pg (27.0-31.0) 11/01/18 07:14 MCHC 33.4 g/dL (33.0-37.0) 11/01/18 07:14 RDW 16.2 % (11.5-14.5) H 11/01/18 07:14 Plt Count 325 K/uL (130-400) 11/01/18 07:14 MPV 8.1 fL (7.2-11.7) 11/01/18 07:14 Neut % (Auto) 69.9 % (50.0-75.0) 11/01/18 07:14 Lymph % (Auto) 14.2 % (20.0-40.0) L 11/01/18 07:14 [place] % (Auto) 12.2 % (0.0-10.0) H 11/01/18 07:14 Eos % (Auto) 2.8 % (0.0-4.0) 11/01/18 07:14 Baso % (Auto) 0.9 % (0.0-2.0) 11/01/18 07:14 Neut # (Auto) 5.2 K/uL (1.8-7.0) 11/01/18 07:14 Lymph # (Auto) 1.1 K/uL (1.0-4.3) 11/01/18 07:14 [place] # (Auto) 0.9 K/uL (0.0-0.8) H 11/01/18 07:14 Eos # (Auto) 0.2 K/uL (0.0-0.7) 11/01/18 07:14 Baso # (Auto) 0.1 K/uL (0.0-0.2) 11/01/18 07:14 Neutrophils % (Manual) 76 % (50-75) H 10/28/18 07:25 Lymphocytes % (Manual) 9 % (20-40) L 10/28/18 07:25 Monocytes % (Manual) 13 % (0-10) H 10/28/18 07:25 Eosinophils % (Manual) 2 % (0-4) 10/28/18 07:25 Basophils % (Manual) 1 % (0-2) 10/23/18 13:59 Platelet Estimate Normal (NORMAL) 10/28/18 07:25 Polychromasia Slight 10/23/18 13:59 Hypochromasia (manual) Slight 10/28/18 07:25 Poikilocytosis (manual Slight 10/28/18 07:25 Anisocytosis (manual) Slight 10/28/18 07:25 Microcytosis (manual) Slight 10/23/18 13:59 Macrocytosis (manual) Slight 10/28/18 07:25 Ovalocytes Slight 10/23/18 13:59 PT 12.8 SECONDS (9.7-12.2) H 10/23/18 13:59 INR 1.2 10/23/18 13:59 APTT 27 SECONDS (21-34) 10/23/18 13:59 Sodium 136 mmol/L (132-148) 10/28/18 07:25 Potassium 4.3 mmol/L (3.6-5.2) 10/28/18 07:25 Chloride 104 mmol/L (98-107) 10/28/18 07:25 Carbon Dioxide 28 mmol/L (22-30) 10/28/18 07:25 Anion Gap 8 (10-20) L 10/28/18 07:25 BUN 10 mg/dL (7-17) 10/28/18 07:25 Creatinine 0.6 mg/dL (0.7-1.2) L 10/28/18 07:25 Est GFR ( Amer) > 60 10/28/18 07:25 Est GFR (Non-Af Amer) > 60 10/28/18 07:25 POC Glucose (mg/dL) 169 mg/dL (65-110) H 11/01/18 07:19 Random Glucose 226 mg/dL (65-105) H 10/28/18 07:25 Calcium 8.9 mg/dl (8.6-10.4) 10/28/18 07:25 Total Bilirubin 0.6 mg/dL (0.2-1.3) 10/28/18 07:25 AST 27 U/L (14-36) 10/28/18 07:25 ALT 14 U/L (9-52) 10/28/18 07:25 Alkaline Phosphatase 73 U/L (38-126) 10/28/18 07:25 Total Protein 6.1 g/dL (6.3-8.3) L 10/28/18 07:25 Albumin 3.4 g/dL (3.5-5.0) L 10/28/18 07:25 Globulin 2.8 gm/dL (2.2-3.9) 10/28/18 07:25 Albumin/Globulin Ratio 1.2 (1.0-2.1) 10/28/18 07:25 Blood Type O POSITIVE 10/26/18 11:36 Antibody Screen Negative 10/26/18 11:36 - Hospital Course Hospital Course: Ms. José is a pleasant 73 year old Female who is status-post open appendectomy/lysis of adhesions (10/08/18). She was subsequently sent to [facility] where she complained of increased pain at the surgical site with nonbloody/nonbilious vomiting. She underwent CT guided drainage of a complex pelvic fluid collection by Interventional Radiology on 10/25/18. Culture of the drained fluid showed NO growth. Blood culture (10/22/18) was negative at 5 days. Urine culture (10/22/18) showed NO growth. She was treated with IV Ciprofloxicin 400 mg IV Q12H and Flagyl 500 mg IV Q8H and both of these were converted to oral antibiotics to be completed on 11/02/18. Assessments: 1). Complex Pelvic Fluid Collection status-posy Drainage (10/25/18) 2). History of COPD/Bronchitis 3). History of Type 2 Diabetes Mellitus 4). History of Hypertension 5). History of Hyperlipidemia 6). History of Peripheral Vascular Disease Patient is medically stable for transfer back to [facility]. Patient is instructed to continue all home medications for chronic medical problems as prescribed. Patient will continue the following antibiotics through 11/02/2018: Ciprofloxaxin 500 mg PO twice daily Flagyl 500 mf PO three times daily Patient will need to follow up with Surgeon Dr. Rankin in 7 days for removal of ventral abdominal dejan Bacitracin Topical to the ventral surgical incision site and cover with nonadhesive dressing 2x/day. - Date & Time of H&P Date of H&P: 11/01/18 Time of H&P: 11:08 Discharge Exam - Head Exam Head Exam: ATRAUMATIC, NORMAL INSPECTION, NORMOCEPHALIC - Eye Exam Eye Exam: EOMI, Normal appearance, PERRL Pupil Exam: NORMAL ACCOMODATION - ENT Exam ENT Exam: Mucous Membranes Moist, Normal Exam - Neck Exam Neck exam: Full Rom, Normal Inspection - Respiratory Exam Respiratory Exam: Clear to PA & Lateral, NORMAL BREATHING PATTERN, UNREMARKABLE. absent: Accessory Muscle Use, Rales, Rhonchi, Wheezes, Respiratory Distress, Stridor - Cardiovascular Exam Cardiovascular Exam: +S1, +S2, Systolic Murmur - GI/Abdominal Exam GI & Abdominal Exam: Normal Bowel Sounds, Soft, Unremarkable. absent: Distended, Firm, Guarding, Hernia, Rebound, Rigid, Tenderness Additional comments: Ventral Surgical site with intact dejan with no wound dehiscense and no surrounding signs of cellulitis - Extremities Exam Extremities exam: normal capillary refill, normal inspection, pedal edema (nonpitting edema, chronic), pedal pulses present - Neurological Exam Neurological exam: Alert, CN II-XII Intact, Oriented x3 - Psychiatric Exam Psychiatric exam: Normal Affect, Normal Mood Discharge Plan - Follow Up Plan Condition: STABLE Disposition: REHAB FACILITY/REHAB UNIT Referrals: Terrell Rankin Jr., MD [Staff Provider] -
[2018-11-01] MEDS: (Novolin R) Insulin Human Regular 100 units/ml vial SC SCH ×2 (08:22→12:09)
[2018-11-01] MEDS: Pantoprazole 40 mg EC Tab PO SCH (09:52)
[2018-11-01] MEDS: Multivitamin With Minerals Tab PO SCH (09:52)
[2018-11-01] MEDS: Cilostazol 50 mg Tab UD PO SCH (10:00)
[2018-11-01 15:41] VITALS: BP 121/64; PULSE 93; TEMP 98.1; O2SAT 96
== END 2018-11-01 16:30 | DRG 863 ==
LOC: C.ER 03:54 → C.3T 04:11
PROVIDERS: ADMIT Internal Medicine; ATTEND Internal Medicine
PROC: 0W9H30Z Drainage of Retroperitoneum with Drainage Device, Percutaneous Approach (ICD-10-PCS; principal; 2018-10-25)
PROC: BW21ZZZ Computerized Tomography (CT Scan) of Abdomen and Pelvis (ICD-10-PCS; 2018-10-25)
DX: K68.11 Postprocedural retroperitoneal abscess (principal); K91.870 Postprocedural hematoma of a digestive system organ or structure following a digestive system procedure; D62 Acute posthemorrhagic anemia; E11.51 Type 2 diabetes mellitus with diabetic peripheral angiopathy without gangrene; J44.9 Chronic obstructive pulmonary disease, unspecified; E11.65 Type 2 diabetes mellitus with hyperglycemia; I10 Essential (primary) hypertension; I25.10 Atherosclerotic heart disease of native coronary artery without angina pectoris; E78.5 Hyperlipidemia, unspecified; F41.9 Anxiety disorder, unspecified; M81.0 Age-related osteoporosis without current pathological fracture; E78.00 Pure hypercholesterolemia, unspecified; F17.200 Nicotine dependence, unspecified, uncomplicated; Z87.01 Personal history of pneumonia (recurrent); Z90.49 Acquired absence of other specified parts of digestive tract; Z90.710 Acquired absence of both cervix and uterus; Z79.4 Long term (current) use of insulin

== ENCOUNTER 2019-03-04 09:45 | Outpatient (CLI) | payer MEDICARE | END 2019-03-04 09:46 | disposition home or self-care (01) | LOC: C.VASC 09:45 ==